=== PATIENT | male | born 1970 | race African-American/Black ===

== ENCOUNTER 2019-03-16 13:19 | Emergency (ER) | payer SELFPAY ==
--- OUTSIDE RECORDS SUMMARY | 2019-03-16 13:23 | XMS REPORT | Continuity of Care Document ---
:1970 Author Organization [employer] Care Team Providers Name Role Phone [employer] Unavailable Unavailable Problems Problem Status Onset Classification Date Comments Source Date Reported End stage renal 10/25/19 10/27/2018 [facility] disease Medical Center SENT BY / Active 10/25/19 [facility] DIALYSIS Medical Center CHRONIC KIDNEY Active 09/07/19 [facility] DISEASE, STAGE 5 Medical [place] Hypertensive 04/06/20 10/15/2018 [facility] emergency [address] [place] [address] RIOS Active 03/21/[address] HYPERKALEMIA Active 03/21/[address] Diabetes mellitus Active Problem 10/27/2018 not taking [facility] (disorder) meds-taken Medical off meds Center b/c of "kidney disease" End stage renal Active Problem 10/27/[address] [facility] [place] [place] Medical (disorder) Center Hypertensive Active Problem 10/27/2018 [facility] disorder, Medical systemic arterial Center (disorder) Osteoarthritis Active Problem 10/27/2018 [facility] (disorder) [facility] Transient Resolved Problem 10/27/2018 [facility] ischemic attack Medical (disorder) Center Acute kidney 10/15/2018 [facility] failure with Medical tubular necrosis Center Acidosis 10/15/2018 [facility] Chronic kidney 10/15/2018 [facility] disease, stage 5 Medical Center Hypertensive 10/15/2018 [facility] chronic kidney Medical disease with Center stage 5 chronic kidney disease or end stage renal disease Type 2 diabetes 10/15/2018 [facility] mellitus with Medical diabetic chronic Center kidney disease Personal history 10/15/2018 [facility] of transient Medical ischemic attack Center (TIA), and cerebral infarction without residual deficits Hyperkalemia 10/15/2018 [facility] Anemia in chronic 10/15/2018 [facility] kidney disease 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 [facility] (current) use of Medical oral hypoglycemic Center drugs Hypomagnesemia 10/15/2018 [facility] Morbid (severe) 10/15/2018 [facility] obesity due to Medical excess calories Center Hypertrophic scar 10/15/2018 [facility] Other disorders 10/15/2018 [facility] Medical metabolism Center Type 2 diabetes 10/15/2018 [facility] mellitus with Medical unspecified Center diabetic retinopathy without macular edema Type 2 diabetes 10/15/2018 [facility] mellitus with Medical diabetic Center nephropathy Hyperlipidemia, 10/15/2018 [facility] HYPERKALEMIA Active [facility] Medications Medication Details Route Status Patient Ordering Order Source Instructions Provider Date gabapentin 300 MG 300 mg, 1 cap, Inactive [facility] Oral Capsule Route: PO, Drug 2019 Medical form: CAP, Center ONCE, Dosing Weight 161.364, kg, Start date: 09/24/18 12:04:00 CDT, Stop date: 09/24/18 12:04:00 CDTNotes: (Same as: Neurontin) Oxycodone 5 mg, Route: Inactive [facility] Hydrochloride 5 MG PO, Drug form: 2019 Medical Oral Tablet TAB, ONCE, Center Dosing Weight 161.364, kg, PRN Pain Score 4-6, Start date: 09/24/18 11:59:00 CDT Naloxone 0.4 mg, 1 mL, No Longer [facility] Route: IVP, Active 2018 Medical Drug form: INJ, Center Q2MIN, Dosing Weight 161.364, kg, PRN Narcotic Reversal, Start date: 09/24/18 9:36:00 CDT, Duration: 8 doses or times, Stop date: 09/25/18 0:00:00 CDTNotes: Same as Narcan Flumazenil 0.2 mg, 2 mL, No Longer 09/24[facility] Route: IVP, Active 2018 Medical Drug form: INJ, Center PRN, Dosing Weight 161.364, kg, PRN Benzodiazepine Reversal, Initial dose, Start date: 09/24/18 9:36:00 CDT, Duration: 30 day, Stop date: 10/24/18 9:35:00 CDTNotes: (Same as: Romazicon) Ondansetron 4 mg, 2 mL, No Longer [facility] Route: IVP, Active 2018 Medical Drug form: INJ, Center ONCE, Dosing Weight 161.364, kg, PRN Nausea & Vomiting, Start date: 09/24/18 9:36:00 CDTNotes: (Same as: Zofran) MEDICATION WASTE Product Size: 4 mg Product Wasted: ___ mg neostigmine (ANES) Route: IV, Drug Inactive [facility] form: INJ, 2018 Medical ONCE, Stop Center date: 09/24/18 9:28:00 CDT ondansetron (ANES) Route: IV, Drug Inactive [facility] form: INJ, 2018 Medical ONCE, Stop Center date: 09/24/18 9:14:00 CDT lidocaine (ANES) Route: IV, Drug Inactive [facility] form: INJ, 2018 Medical ONCE, Stop Center date: 09/24/18 8:44:00 CDT glycopyrrolate Route: IV, Drug Inactive [facility] (ANES) form: INJ, 2018 Medical ONCE, Stop Center date: 09/24/18 8:44:00 CDT propofol (ANES) Route: IV, Drug Inactive [facility] form: INJ, 2018 Medical ONCE, Stop Center date: 09/24/18 8:44:00 CDT fentaNYL (ANES) Route: IV, Drug Inactive [facility] form: INJ, 2018 Medical ONCE, Stop Center date: 09/24/18 8:44:00 CDT ceFAZolin (ANES) Route: IV, Drug Inactive [facility] form: INJ, 2018 Medical ONCE, Stop Center date: 09/24/18 8:44:00 CDT cisatracurium Route: IV, Drug Inactive [facility] (ANES) form: INJ, 2018 Medical ONCE, Stop Center date: 09/24/18 8:44:00 CDT Sodium Chloride 250 mL, Rate: No Longer [facility] 0.9% (titrate) 250 To prime line Active 2018 [facility] mL and flush Center remaining blood products., Dosing Weight 163.1, kg, Route: IV, Total Volume: 250, Start Date: 09/24/18 5:00:00 CDT, Duration: 30 day, Stop date: 10/24/18 4:59:00 CDT, Replace Every: 24 hr Furosemide Daily, 0 Active [facility] Refill(s) 2018 [facility] Docusate 100 mg, 1 cap, Inactive [facility] Route: PO, Drug 2018 Medical form: CAP, Center Daily, Dosing Weight 163.1, kg, Start date: 03/28/18 17:00:00 CDT, Duration: 30 day, Stop date: 04/27/18 9:00:00 CDTNotes: (Same as: Colace) (Do Not Crush) Miralax 17 gm, 1 pkt, Inactive [place] Route: PO, Drug 2018 Medical form: PWDR, Center Daily, Dosing Weight 163.1, kg, Start date: 03/28/18 17:00:00 CDT, Duration: 30 day, Stop date: 04/27/18 9:00:00 CDTNotes: Dissolve in 8 oz of water or juice. (Same as: Miralax) clopidogrel 75 MG 75 mg=1 tab, Active [place] Oral Tablet PO, Daily, # 30 2018 Medical [Plavix] tab, 0 Center Refill(s), Pharmacy: [facility] Aspirin 81 MG 81 mg=1 tab, Inactive [facility] Enteric Coated PO, Daily, # 90 2018 Medical Tablet tab, 3 Center Refill(s), Pharmacy: [facility] NIFEdipine 60 mg 60 mg=1 tab, Active [facility] oral tablet, PO, Q12H, # 60 2018 Medical extended release tab, 0 Center Refill(s), Pharmacy: [facility] isosorbide 20 mg=1 tab, Active [facility] dinitrate 20 mg PO, TID, # 90 2018 Medical oral tablet tab, 0 Center Refill(s), Pharmacy: [facility]79 atorvastatin 10 mg 10 mg=1 tab, Active [facility] oral tablet PO, Bedtime, # 2018 Medical 30 tab, 0 Center Refill(s), Pharmacy: [facility] Hydralazine 50 mg=1 tab, Active [facility] Hydrochloride 50 MG PO, Q8H, # 90 2018 Medical Oral Tablet tab, 0 Center Refill(s), Pharmacy: [facility] carvedilol 12.5 mg 12.5 mg=1 tab, Active [facility] oral tablet PO, Q12H, # 60 2018 Medical tab, 0 Center Refill(s), Pharmacy: [facility]79 calcitriol 0.25 mcg 0.25 microgram, Active [place] oral capsule PO, Daily, # 30 2018 Medical caplet, 0 Center Refill(s), Pharmacy: [facility]79 polyethylene glycol 17 gm, PO, No Longer [place] 3350 oral powder Daily, X 7 day, Active 2018 Medical for reconstitution # 255 gm, 0 Center Refill(s), Pharmacy: [facility] Sodium Bicarbonate 650 mg=1 tab, No Longer [place] 650 MG Oral Tablet PO, TID, X 30 Active 2018 Medical day, # 90 tab, Center 0 Refill(s), Pharmacy: [facility]79 sevelamer carbonate 800 mg=1 tab, Active [place] 800 mg oral tablet PO, TID-Meals, 2018 Medical # 90 tab, 0 Center Refill(s), Pharmacy: [facility]79 Calcitriol 0.25 microgram, Inactive [place] 1 cap, Route: 2018 Medical PO, Drug form: Center CAP, Daily, Dosing Weight 163.1, kg, Priority: NOW, Start date: 03/28/18 14:20:00 CDT, Duration: 30 day, Stop date: 04/27/18 9:00:00 CDTNotes: (Same As: Rocaltrol) carvedilol 12.5 mg, 1 tab, No Longer [place] Route: PO, Drug Active 2017 Medical form: TAB, Center Q12H, Start date: 03/27/18 21:00:00 CDT, Duration: 30 day, Stop date: 04/26/18 9:00:00 CDTNotes: Give with food. (Same As: Coreg) isosorbide 30 mg, Route: Inactive [place] dinitrate PO, Drug form: 2017 Medical TAB, Q8H, Start Center date: 03/27/18 16:00:00 CDT, Duration: 30 day, Stop date: 04/26/18 8:00:00 CDT isosorbide 20 mg, 1 tab, No Longer [facility] dinitrate Route: PO, Drug Active 2017 Medical form: TAB, TID, Center Start date: 03/27/18 13:00:00 CDT, Duration: 30 day, Stop date: 04/26/18 8:00:00 CDTNotes: (Same as:Isordil) Take on empty stomach/ full glass of water Insulin regular 5 unit, 0.05 Inactive [facility] mL, Route: IV, 2018 Medical Drug form: Center SOLN, ONCE, Dosing Weight 163.1, kg, Start date: 03/27/18 7:30:00 CDT, Stop date: 03/27/18 7:30:00 CDTNotes: (Same as: Humulin R) Roll in palms of hands gently; Do not shake vigorously. "single patient use only" (Restricted to patients requiring a dose > 60 units) WASTE: F/P - Black; E - [employer] Trash Bin Stable for 28 days at room temperature Expires in days from D ate D50W (bolus) IV 25 gm, 50 mL, Inactive [facility] Route: IV, Drug 2017 Medical Form: INJ, [place] Dosing Weight 163.1, kg, ONCE, Start date: 03/27/18 7:30:00 CDT, Stop date: 03/27/18 7:30:00 CDT Kayexalate 30 gm, 120 mL, Inactive [facility] Route: PO, Drug 2017 Medical form: SUSP, Center ONCE, Dosing Weight 163.1, kg, Start date: 03/27/18 7:30:00 CDT, Stop date: 03/27/18 7:30:00 CDTNotes: (sodium polystyrene sulfonate 15 gm/60 ml ESTELLE) Shake well before use. (Same as: Kayexalate, SPS) sevelamer 800 mg, 1 tab, No Longer [facility] Route: PO, Drug Active 2018 Medical form: TAB, Center TID-Meals, Dosing Weight 163.1, kg, Start date: 03/26/18 8:00:00 CDT, Duration: 30 day, Stop date: 04/24/18 17:00:00 CDTNotes: Same as: Renvela D50W (bolus) IV 25 gm, 50 mL, Inactive [facility] Route: IV, Drug 2018 Medical Form: INJ, Center Dosing Weight 163.1, kg, ONCE, Start date: 03/26/18 7:53:00 CDT, Stop date: 03/26/18 7:53:00 CDT Insulin regular 5 unit, 0.05 Inactive [facility] mL, Route: IV, 2018 Medical Drug form: [place] SOLN, ONCE, Dosing Weight 163.1, kg, Start date: 03/26/18 7:53:00 CDT, Stop date: 03/26/18 7:53:00 CDTNotes: (Same as: Humulin R) Roll in palms of hands gently; Do not shake vigorously. "single patient use only" (Restricted to patients requiring a dose > 60 units) WASTE: F/P - Black; E - [employer] Trash Bin Stable for 28 days at room temperature Expires in days from D ate Kayexalate 30 gm, 120 mL, Inactive [facility] Route: PO, Drug 2017 Medical form: SUSP, [place] ONCE, Dosing Weight 163.1, kg, Start date: 03/26/18 7:53:00 CDT, Stop date: 03/26/18 7:53:00 CDTNotes: (sodium polystyrene sulfonate 15 gm/60 ml ESTELLE) Shake well before use. (Same as: Kayexalate, SPS) Sodium Bicarbonate 650 mg, 1 tab, No Longer [facility] Route: PO, Drug Active 2017 Medical form: TAB, TID, Center Dosing Weight 163.1, kg, Priority: NOW, Start date: 03/26/18 6:50:00 CDT, Duration: 30 day, Stop date: 04/24/18 17:00:00 CDTNotes: "Dissolve tablet in a glass of water prior to oral administration. STOMACH WARNING: To avoid serious injury, do not take until tablet is completely dissolved. It is very important not to take this product when overly full from food or drink." NIFEdipine 60 mg 60 mg, 1 tab, No Longer [facility] oral tablet, Route: PO, Drug Active 2017 Medical extended release form: ERTAB, [place] Q12H, Dosing Weight 163.1, kg, Start date: 03/25/18 9:00:00 CDT, Duration: 30 day, Stop date: 04/23/18 21:00:00 CDTNotes: (Same as: Adalat CC, Procardia XL) Give on empty stomach. Take 1 hour before or 2 hours after meal; "Avoid grapefruit and grapefruit juice". Do not crush Magnesium Sulfate 2 gm, 50 mL, Inactive [facility] Route: IVPB2017 Medical Drug form: INJ, Center ONCE, Dosing Weight 163.1, kg, Total dose=2 gm, Start date: 03/25/18 7:20:00 CDT, Stop date: 03/25/18 7:20:00 CDTNotes: WASTE: F/P - Sink; E - Municipal Trash Bin NIFEdipine 60 mg 60 mg, 1 tab, Inactive [place] oral tablet, Route: PO, Drug 2018 Medical extended release form: ERTAB, Center Q12H, Dosing Weight 163.1, kg, Start date: 03/24/18 23:00:00 CDT, Duration: 30 day, Stop date: 04/23/18 21:00:00 CDTNotes: (Same as: Adalat CC, Procardia XL) Give on empty stomach. Take 1 hour before or 2 hours after meal; "Avoid grapefruit and grapefruit juice". Do not crush Hydralazine 75 mg, 3 tab, No Longer [place] Hydrochloride 50 MG Route: PO, Drug Active 2018 Medical Oral Tablet form: TAB, Q8H, Center Dosing Weight 163.1, kg, Start date: 03/24/18 21:00:00 CDT, Duration: 30 day, Stop date: 04/23/18 16:00:00 CDTNotes: (Same as: Apresoline) May interfere w/enteral feedings Take With Food. Hydralazine 50 mg, 1 tab, Inactive [place] Hydrochloride 50 MG Route: PO, Drug 2018 Medical Oral Tablet form: TAB, Q8H, Center Dosing Weight 163.1, kg, Start date: 03/24/18 16:00:00 CDT, Duration: 30 day, Stop date: 04/23/18 8:00:00 CDTNotes: (Same as: Apresoline) May interfere w/enteral feedings Take With Food isosorbide 20 mg, 1 tab, No Longer [place] dinitrate Route: PO, Drug Active 2017 Medical form: TAB, Q8H, Center Start date: 03/24/18 16:00:00 CDT, Duration: 30 day, Stop date: 04/23/18 8:00:00 CDTNotes: (Same as:Isordil) Take on empty stomach/ full glass of water NIFEdipine 60 mg 60 mg, 1 tab, Inactive [facility] oral tablet, Route: PO, Drug 2017 Medical extended release form: ERTAB, Center ONCE, Dosing Weight 163.1, kg, Start date: 03/24/18 15:59:00 CDT, Stop date: 03/24/18 15:59:00 CDTNotes: (Same as: Adalat CC, Procardia XL) Give on empty stomach. Take 1 hour before or 2 hours after meal; "Avoid grapefruit and grapefruit juice". Do not crush NIFEdipine 60 mg 60 mg, Route: Inactive [facility] oral tablet, PO, Drug form: 2017 Medical extended release ERTAB, ONCE, Center Dosing Weight 163.1, kg, Priority: NOW, Start date: 03/24/18 15:57:00 CDT, Stop date: 03/24/18 15:57:00 CDT, .. hydrALAZINE 25 mg, Route: Inactive [facility] PO, Drug form: 2018 Medical TAB, TID, Start Center date: 03/24/18 13:00:00 CDT, Duration: 30 day, Stop date: 04/23/18 9:00:00 CDT Kayexalate 30 gm, Route: Inactive [facility] PO, Drug form: 2018 Medical PWDR, ONCE, Center Dosing Weight 163.1, kg, Start date: 03/24/18 12:54:00 CDT, Stop date: 03/24/18 12:54:00 CDTNotes: (sodium polystyrene sulfonate 30gm powder) (Same as: Kayexalate, SPS) Shake well before use Acetaminophen 650 mg, 2 tab, No Longer [facility] Route: PO, Drug Active 2017 Medical form: TAB, Q6H, Center Dosing Weight 163.1, kg, PRN Pain Score 1-3, Start date: 03/24/18 12:22:00 CDT, Duration: 30 day, Stop date: 04/23/18 12:21:00 CDTNotes: Do not exceed 4 gm/day. (Same as: Tylenol) Hydralazine 25 mg, 1 tab, Inactive [place] Route: PO, Drug 2017 Medical form: TAB, Center ONCE, Dosing Weight 163.1, kg, Start date: 03/24/18 11:06:00 CDT, Stop date: 03/24/18 11:06:00 CDTNotes: (Same as: Apresoline) May interfere w/enteral feedings Take With Food. Tylenol 650 mg, 2 tab, Inactive [place] Route: PO, Drug 2017 Medical form: TAB, Center ONCE, Dosing Weight 163.1, kg, Start date: 03/23/18 20:41:00 CDT, Stop date: 03/23/18 20:41:00 CDTNotes: Do not exceed 4 gm/day. (Same as: Tylenol) Melatonin 3 MG 6 mg, 2 tab, No Longer [facility] Extended Release Route: PO, Drug Active 2017 Medical Tablet Form: TAB, Center Dosing Weight 163.1, kg, Bedtime, Start date: 03/23/18 18:00:00 CDT, Duration: 30 day, Stop date: 04/21/18 18:00:00 CDTNotes: (Same as: Melatonin) hydrALAZINE 10 mg, 1 tab, No Longer [facility] Route: PO, Drug Active 2017 Medical form: TAB, TID, Center Start date: 03/23/18 16:00:00 CDT, Duration: 30 day, Stop date: 04/22/18 13:00:00 CDTNotes: (Same as: Apresoline) May interfere w/enteral feedings. Take With Food isosorbide 20 mg, 1 tab, No Longer [facility] dinitrate Route: PO, Drug Active 2017 Medical form: TAB, TID, Center Start date: 03/23/18 9:00:00 CDT, Duration: 30 day, Stop date: 04/21/18 17:00:00 CDTNotes: (Same as:Isordil) Take on empty stomach/ full glass of water hydrALAZINE 12.5 mg, 0.5 Inactive [facility] tab, Route: PO, 2017 Medical Drug form: TAB, Center TID, Start date: 03/23/18 9:00:00 CDT, Duration: 30 day, Stop date: 04/21/18 17:00:00 CDT Hydralazine 1 tab, Route: No Longer [facility] Hydrochloride 37.5 PO, Dosing Active 2018 Medical MG / Isosorbide Weight 163.1, Center Dinitrate 20 MG kg, TID, Start Oral Tablet [Bidil] date: 03/23/18 9:00:00 CDT, Duration: 30 day, Stop date: 04/21/18 17:00:00 CDT heparin 5,000 unit, 1 No Longer [facility] mL, Route: Active 2017 Medical SUB-Q, Drug Center form: INJ, Q8H, Dosing Weight 163.1, kg, Start date: 03/23/18 8:00:00 CDT, Duration: 30 day, Stop date: 04/22/18 0:00:00 CDTNotes: porcine heparin Labetalol 10 mg, 2 mL, No Longer [facility] Route: IV, Drug Active 2017 Medical form: INJ, Center [id number], Dosing Weight 163.1, kg, PRN Hypertension, Start date: 03/22/18 23:53:00 CDT, Duration: 30 day, Stop date: 04/21/18 23:52:00 CDT Labetalol 10 mg, 2 mL, Inactive [facility] Route: IVP, 2017 Medical Drug form: INJ, Center ONCE, Dosing Weight 163.1, kg, Priority: NOW, Start date: 03/22/18 20:13:00 CDT, Stop date: 03/22/18 20:13:00 CDT Labetalol 20 mg, 4 mL, Inactive [facility] Route: IVP, 2017 Medical Drug form: INJ, Center ONCE, Dosing Weight 163.1, kg, Priority: NOW, Start date: 03/22/18 20:06:00 CDT, Stop date: 03/22/18 20:06:00 CDT Hydralazine 10 mg, Route: Inactive [facility] IV, ONCE, 2018 Medical Dosing Weight Center 163.1, kg, Start date: 03/22/18 20:04:00 CDT, Stop date: 03/22/18 20:04:00 CDT NIFEdipine 60 mg 60 mg, 1 tab, No Longer [place] oral tablet, Route: PO, Drug Active 2018 Medical extended release form: ERTAB, Center Daily, Dosing Weight 163.1, kg, Start date: 03/22/18 16:50:00 CDT, Duration: 30 day, Stop date: 04/21/18 9:00:00 CDT, .. Saline Flush 0.9% 10 ml, Route: No Longer [facility] IVP, Drug Form: Active 2018 Medical INJ, Dosing Center Weight 163.1, kg, Q12H, Start date: 03/22/18 9:00:00 CDT, Duration: 30 day, Stop date: 04/20/18 21:00:00 CDTNotes: (Same as: BD Posiflush) heparin 5,000 unit, 1 Inactive [facility] mL, Route: 2018 Medical SUB-Q, Drug Center form: INJ, Q8H, Dosing Weight 163.1, kg, Start date: 03/22/18 8:00:00 CDT, Duration: 30 day, Stop date: 04/21/18 0:00:00 CDTNotes: porcine heparin Dextrose 50% 25 gm, 50 mL, No Longer [facility] Syringe Route: IVP, Active 2018 Medical Drug Form: INJ, Center Dosing Weight 163.1, kg, PRN, PRN Blood Glucose Results, Start date: 03/22/18 6:16:00 CDT, Duration: 30 day, Stop date: 04/21/18 6:15:00 CDT Glucagon 1 mg, Route: No Longer [facility] IM, Drug form: Active 2018 Medical PDR/INJ, PRN, Center Dosing Weight 163.1, kg, PRN Blood Glucose Results, Start date: 03/22/18 6:16:00 CDT, Duration: 30 day, Stop date: 04/21/18 6:15:00 CDT Insulin Lispro 3 unit, 0.03 No Longer [facility] mL, Route: Active 2018 Medical SUB-Q, Drug Center form: SOLN, TID-Before Meals, Dosing Weight 163.1, kg, PRN Blood Glucose Results, Start date: 03/22/18 6:16:00 CDT, Duration: 30 day, Stop date: 04/21/18 6:15:00 CDTNotes: (Same as: Humalog ) Roll in palms of hands gently; Do not shake `vigorously. "Single Patient Use Only " WASTE: F/P - Black; E - [employer] Trash Bin Stable for 28 days at room temperature. Expires in days from D ate Amlodipine 10 MG / 1 tab, PO, No Longer [place] atorvastatin 10 MG Bedtime, # 30 Active 2018 Medical Oral Tablet tab, 0 Center Refill(s) spironolactone 50 50 mg=1 tab, No Longer [place] mg oral tablet PO, Daily, # 30 Active 2018 Medical tab, 1 Center Refill(s) Hydrochlorothiazide 1 tab, PO, No Longer [place] 25 MG / valsartan Daily, # 30 Active 2018 Medical 320 MG Oral Tablet tab, 0 Center Refill(s) glimepiride 2 mg 2 mg=1 tab, PO, No Longer [facility] oral tablet Breakfast, # 30 Active 2018 Medical tab, 0 Center Refill(s) Metformin 1,000 mg=1 tab, No Longer [place] hydrochloride 1000 PO, BID, 0 Active 2018 Medical MG Oral Tablet Refill(s) Center Saline Flush 0.9% 10 ml, Route: No Longer [place] IVP, Drug Form: Active 2018 Medical INJ, Dosing Center Weight 163.1, kg, PRN, PRN Line Flush, Start date: 03/22/18 5:02:00 CDT, Duration: 30 day, Stop date: 04/21/18 5:01:00 CDTNotes: (Same as: BD Posiflush) Nicardipine 20 mg, 200 mL, Inactive [place] Rate: Titrate, 2018 Medical Start Dose: 5 Center mg/hr, Titration: 2.5 mg/hr every 15 minutes, Goal(s): goal SBP 180/92., Max Dose: 15 mg/hr, Route: IV, Dosing Weight 165.909 kg, Total Volume: 200, Priority: NOW, Start date: 03/22/18 4:07:00 CDT, Duration:...Not es: Same as: Cardene Concentration: (0.1 mg/ 1 ml) Labetalol 10 mg, Route: Inactive [facility] IV, ONCE, 2018 Medical Dosing Weight Center 165.909, kg, Start date: 03/21/18 22:55:00 CDT, Stop date: 03/21/18 22:55:00 CDT Labetalol 10 mg, Route: Inactive [facility] IV, ONCE, 2018 Medical Dosing Weight Center 165.909, kg, Start date: 03/21/18 22:54:00 CDT, Stop date: 03/21/18 22:54:00 CDT Kayexalate 15 gm, 60 mL, Inactive [place] Route: PO, Drug 2018 Medical form: SUSP, Center ONCE, Dosing Weight 165.909, kg, Priority: STAT, Start date: 03/21/18 21:55:00 CDT, Stop date: 03/21/18 21:55:00 CDTNotes: (sodium polystyrene sulfonate 15 gm/60 ml ESTELLE) Shake well before use. (Same as: Kayexalate, SPS) Lasix 40 mg, 4 mL, Inactive [place] Route: IVP, 2018 Medical Drug form: INJ, Center ONCE, Dosing Weight 165.909, kg, Priority: STAT, Start date: 03/21/18 21:54:00 CDT, Stop date: 03/21/18 21:54:00 CDTNotes: (Same as: Lasix) MEDICATION WASTE Product Size: 40 mg Product Wasted: ___ mg Isolyte S PH-7.4 1,000 mL, 1000 Inactive [place] (Bolus) IV ml/hr, Infuse 2018 Medical Over: 1 hr, Center Route: IV, 1,000, Drug form: SOLN, ONCE, Dosing Weight 165.909 kg, Start date: 03/21/18 21:32:00 CDT, Stop date: 03/21/18 21:32:00 CDTNotes: (Same as: Isolyte S PH 7.4) Albuterol 0.83 7.47 mg, 9 mL, Inactive [facility] MG/ML Inhalant Route: NEB, 2018 Medical Solution Drug form: [place] SHANNONN, ONCE, Dosing Weight 165.909, kg, Start date: 03/21/18 21:32:00 CDT, Stop date: 03/21/18 21:32:00 CDTNotes: SEE RT DOCUMENTATION (Same as: Proventil) Dextrose 50% 50 gm, 100 mL, Inactive [facility] Syringe Route: IV, Drug 2017 Medical Form: INJ, [place] Dosing Weight 165.909, kg, ONCE, Start date: 03/21/18 21:31:00 CDT, Stop date: 03/21/18 21:31:00 CDT Insulin regular 5 unit, 0.05 Inactive [facility] mL, Route: IVP, 2017 Medical Drug form: [facility], ONCE, Dosing Weight 165.909, kg, Priority: STAT, Start date: 03/21/18 21:31:00 CDT, Stop date: 03/21/18 21:31:00 CDTNotes: (Same as: Humulin R) Roll in palms of hands gently; Do not shake vigorously. "single patient use only" (Restricted to patients requiring a dose > 60 units) WASTE: F/P - Black; E - Municipal Trash Bin Stable for 28 days at room temperature Expires in days from D ate Allergies, Adverse Reactions, Alerts Substance Category Reaction Severity Reaction Status Date Comments Source type Reported morphine Assertion Drug Active [facility] [facility] 6 [facility] Immunizations No Data Provided for This Section Results Order Name Results Value Reference Date Interpretation Comments Source Range IMMUNOLOGY CDC HIV 4th Negative Negative 10/24 [facility] GEN *NA* /2018 [facility] (10/24/18 8:13 AM) [place] BLOOD BANK ABO/Rh O POS 10/24 [facility] RESULTS /2018 [facility] BLOOD BANK Antibody Scrn Negative 10/24 [facility] RESULTS (10/24/18 8:07 AM) /2018 [facility] ELECTROLYTE AGAP 14.8 10.0 - 10/24 [facility] S 20.0 /2018 [facility] ELECTROLYTE eGFR 7 05/01 Result [facility] Comment: The Medical eGFR is Center calculated using the CKD-EPI formula. In most young, healthy individuals the eGFR will be >90 mL/min/1.73m2 . The eGFR declines with age. An eGFR of 60-89 may be normal in some populations, particularly the elderly, for whom the CKD-EPI formula has not been extensively validated. Use of the eGFR is not recommended in the following populations:< br/>
Jewell viduals with unstable creatinine concentration s, including patients and those with serious co-morbid conditions.<b r/>
Patie nts with extremes in muscle mass or diet.

The data above are obtained from the National Kidney Disease Education Program (NKDEP) which additionally recommends that when the eGFR is used in patients with extremes of body mass index for purposes of drug dosing, the eGFR should be multiplied by the estimated BMI. ELECTROLYTE Calcium Lvl 8.2 8.5 - 10.5 10/24 [facility]2018 [facility] ELECTROLYTE Sodium Lvl 140 135 - 145 05 [facility]2018 [facility] ELECTROLYTE BUN 74 7 - 22 10/[address] ELECTROLYTE Creatinine 9.58 0.50 - 10/24 [facility] Lvl 1.40 [facility] ELECTROLYTE Potassium Lvl 4.8 3.5 - 5.1 10/[address] ELECTROLYTE CO2 21 24 - 32 10/[address] ELECTROLYTE Chloride Lvl 109 95 - 109 10/24 [facility]2018 [facility] ELECTROLYTE Glucose Lvl 105 70 - 99 10/24 [facility]2018 [facility] HEMATOLOGY INR 1.05 0.85 - 10/24 [facility] 1.17 [facility] HEMATOLOGY PT 13.5 12.0 - 10/24 [facility] 14.7 [facility] HEMATOLOGY PTT 30.3 22.9 - 10/24 [facility] 35.8 [facility] HEMATOLOGY MPV 8.5 7.4 - 10.4 10/24 [facility]2018 [facility] HEMATOLOGY WBC 4.2 3.7 - 10.4 10/24 [facility] HEMATOLOGY RDW 14.6 11.5 - 10/24 [facility] 14.5 [facility] HEMATOLOGY Platelet 145 133 - 450 05 [facility] HEMATOLOGY MCHC 34.0 32.0 - 05/ [place] 36.0 /2018 [facility] HEMATOLOGY MCV 85.3 80.0 - 05 [place] 94.0 [facility] HEMATOLOGY MCH 29.0 27.0 - 05 [place] 31.0 [facility] HEMATOLOGY Hct 20.9 42.0 - 10/24 [place] 54.0 [facility] HEMATOLOGY Hgb 7.1 14.0 - 10/24 [place] 18.0 [facility] HEMATOLOGY RBC 2.45 4.70 - 10/24 [place] 6.10 /2018 [facility] HEMATOLOGY Eosinophils # 0.1 0.0 - 0.5 05 [facility] HEMATOLOGY Lymphocytes 14.3 20.0 - 10/24 [place] 40.0 [facility] HEMATOLOGY Segs 71.6 45.0 - 10/24 [place] 75.0 [facility] HEMATOLOGY Neutrophils # 3.0 1.5 - 8.1 10/24 [facility] HEMATOLOGY Monocytes # 0.4 0.0 - 0.8 10/24 [facility] HEMATOLOGY Lymphocytes # 0.6 1.0 - 5.5 10/24 [facility] HEMATOLOGY Basophils 0.6 0.0 - 1.0 10/24 [facility] HEMATOLOGY Eosinophils 2.7 0.0 - 4.0 10/24 [facility] HEMATOLOGY Monocytes 10.8 2.0 - 12.0 10/24 [facility] BACTERIAL - MRSA by PCR Negative 09/24 [facility] SEROLOGY (09/24/18 6:32 AM) [facility] ELECTROLYTE Potassium WB 4.4 3.5 - 5.1 09/24 [facility] S [facility] BLOOD BANK Antibody Scrn Negative 09/24 [facility] RESULTS (09/24/18 6:05 AM) [facility] BLOOD BANK ABO/Rh O POS 09/24 [facility] RESULTS [facility] CHEM PANEL eGFR 6 09/24 Result Comment: The Medical eGFR is Center calculated using the CKD-EPI formula. In most young, healthy individuals the eGFR will be >90 mL/min/1.73m2 . The eGFR declines with age. An eGFR of 60-89 may be normal in some populations, particularly the elderly, for whom the CKD-EPI formula has not been extensively validated. Use of the eGFR is not recommended in the following populations:< br/>
Jewell viduals with unstable creatinine concentration s, including patients and those with serious co-morbid conditions.<b r/>
Patie nts with extremes in muscle mass or diet.

The data above are obtained from the National Kidney Disease Education Program (NKDEP) which additionally recommends that when the eGFR is used in patients with extremes of body mass index for purposes of drug dosing, the eGFR should be multiplied by the estimated BMI. CHEM PANEL Bili Total 0.2 0.2 - 1.[address] CHEM PANEL AST 8 0 - 37 09/[address] CHEM PANEL Alk Phos 64 39 - 136 09/[address] CHEM PANEL ALT 15 0 - [address] CHEM PANEL Potassium Lvl 4.5 3.5 - 5.1 09/[address] CHEM PANEL Total Protein 7.3 6.4 - 8.4 09/[address] CHEM PANEL CO2 20 24 - 32 09/[address] CHEM PANEL Albumin Lvl 3.3 3.5 - 5.0 09/[address] CHEM PANEL Calcium Lvl 8.4 8.5 - 10.5 09/[address] CHEM PANEL Chloride Lvl 111 95 - 109 09/[address] CHEM PANEL Creatinine 10.30 0.50 - 04 [facility] Lvl 1.40 /2018 [facility] CHEM PANEL Glucose Lvl 103 70 - 99 09/[address] CHEM PANEL Sodium Lvl 140 135 - 145 09/[address] CHEM PANEL BUN 76 7 - 22 09/[address] CHEM PANEL A/G Ratio 0.8 0.7 - 1.6 09/[address] CHEM PANEL B/C Ratio 7 6 - 25 09/[address] CHEM PANEL Globulin 4.0 2.7 - 4.2 09/[address] CHEM PANEL AGAP 13.5 10.0 - 04 [place] 20.0 /2018 [facility] HEMATOLOGY Basophils 1.0 0.0 - 1.0 04 2019 [facility] HEMATOLOGY Basophils # 0.1 0.0 - 0.2 04 [place] 2019 [facility] HEMATOLOGY Eosinophils # 0.2 0.0 - 0.5 09/24 [facility] HEMATOLOGY Monocytes # 0.9 0.0 - 0.8 09/24 [facility] HEMATOLOGY Lymphocytes # 2.2 1.0 - 5.5 09/24 [facility] HEMATOLOGY Neutrophils # 2.0 1.5 - 8.1 09/24 2019 [facility] HEMATOLOGY Eosinophils 3.2 0.0 - 4.0 04 [facility] HEMATOLOGY Monocytes 16.1 2.0 - 12.0 09/24 [facility] HEMATOLOGY Lymphocytes 42.0 20.0 - 09/24 [place] 40.0 /2019 [facility] HEMATOLOGY Segs 38.7 45.0 - 09/24 [place] 75.0 /2019 [facility] HEMATOLOGY PT 14.5 12.0 - 09/24 [place] 14.7 /2019 [facility] HEMATOLOGY INR 1.15 0.85 - 09/24 [place] 1.17 /2019 [facility] HEMATOLOGY PTT 31.4 22.9 - 09/24 [place] 35.8 /2019 [facility] HEMATOLOGY Hgb 7.5 14.0 - 09/24 [place] 18.0 /2019 [facility] HEMATOLOGY Hct 21.9 42.0 - 09/24 [place] 54.0 /2019 [facility] HEMATOLOGY MCH 28.5 27.0 - 09/24 [place] 31.0 /2019 [facility] HEMATOLOGY MCHC 34.4 32.0 - 09/24 [place] 36.0 /2019 [facility] HEMATOLOGY RDW 14.2 11.5 - 09/24 [place] 14.5 /2019 [facility] HEMATOLOGY Platelet 180 133 - 450 04 [place] [facility] HEMATOLOGY WBC 5.3 3.7 - 10.4 09/24 [facility] HEMATOLOGY MCV 82.8 80.0 - 09/24 [place] 94.0 /2019 [facility] HEMATOLOGY RBC 2.65 4.70 - 09/24 [place] 6.10 /2019 [facility] HEMATOLOGY MPV 8.7 7.4 - 10.4 09/24 [facility] SPECIAL Hgb A1C <3.5 % <=5.6 % 09/24 [facility] CHEM PANEL Phosphorus 5.7 2.5 - 4.5 03/28 [facility] ELECTROLYTE Sodium Lvl 141 135 - 145 03/28 [facility] ELECTROLYTE Potassium Lvl 4.9 3.5 - 5.1 03/28 [facility]2017 [facility] ELECTROLYTE Chloride Lvl 106 95 - 109 03/28 [facility] ELECTROLYTE Glucose Lvl 142 70 - 99 03/28 [facility] ELECTROLYTE BUN 67 7 - 22 03/28 [facility]2017 [facility] ELECTROLYTE Creatinine 8.79 0.50 - 03/28 [facility] Lvl 1.40 [facility] ELECTROLYTE AGAP 13.9 10.0 - 03/28 [facility] 20.0 [facility] ELECTROLYTE Calcium Lvl 8.1 8.5 - 10.5 03/28 [facility]2017 [facility] ELECTROLYTE CO2 26 24 - 32 03/28 [facility] ELECTROLYTE eGFR 8 03/28 Result [facility] Comment: [facility] eGFR is Center calculated using the CKD-EPI formula. In most young, healthy individuals the eGFR will be >90 mL/min/1.73m2 . The eGFR declines with age. An eGFR of 60-89 may be normal in some populations, particularly the elderly, for whom the CKD-EPI formula has not been extensively validated. Use of the eGFR is not recommended in the following populations:< br/>
Jewell viduals with unstable creatinine concentration s, including patients and those with serious co-morbid conditions.<b r/>
Patie nts with extremes in muscle mass or diet.

The data above are obtained from the National Kidney Disease Education Program (NKDEP) which additionally recommends that when the eGFR is used in patients with extremes of body mass index for purposes of drug dosing, the eGFR should be multiplied by the estimated BMI. IMMUNOLOGY Hep C Ab Negative 03/28 [facility] *NA* /2017 [facility] (03/28/18 12:26 AM) Center PARATHYROID PTH Intact 374.3 18.4 - 03/28 [facility] PROFILE 80.1 [facility] PARATHYROID PTH Intact 314.7 18.4 - 03/27 [facility] PROFILE 80.1 [facility] CHEM PANEL eGFR 7 03/27 Result [facility] Comment: The Medical eGFR is Center calculated using the CKD-EPI formula. In most young, healthy individuals the eGFR will be >90 mL/min/1.73m2 . The eGFR declines with age. An eGFR of 60-89 may be normal in some populations, particularly the elderly, for whom the CKD-EPI formula has not been extensively validated. Use of the eGFR is not recommended in the following populations:< br/>
Jewell viduals with unstable creatinine concentration s, including patients and those with serious co-morbid conditions.<b r/>
Patie nts with extremes in muscle mass or diet.

The data above are obtained from the National Kidney Disease Education Program (NKDEP) which additionally recommends that when the eGFR is used in patients with extremes of body mass index for purposes of drug dosing, the eGFR should be multiplied by the estimated BMI. CHEM PANEL AGAP 15.4 10.0 - 03/27 [facility] 20.0 [facility] CHEM PANEL Potassium Lvl 4.4 3.5 - 5.1 03/27 [facility] [address] [place] [address] CHEM PANEL Chloride Lvl 107 95 - 109 03/[address] CHEM PANEL CO2 21 24 - 32 03/[address] CHEM PANEL Calcium Lvl 8.6 8.5 - 10.5 03/[address] CHEM PANEL Glucose Lvl 103 70 - 99 03/[address] CHEM PANEL Creatinine 8.87 0.50 - 03/27 [facility] Lvl 1.40 [facility] CHEM PANEL Sodium Lvl 139 135 - 145 03/27 [facility] [address] [place] [address] CHEM PANEL BUN 64 7 - 22 03/27 [facility] [address] [place] [address] IMMUNOLOGY 24UIFE Int Urine 03/27 [facility] immunofixa /2017 [facility] tion Center electropho resis reveals a polyclonal pattern of immunoglob ulins. No monoclonal proteins are identified . Interpreta tion performed at [facility]. IMMUNOLOGY 24UIFE See 03/27 [facility] Pattern interpreta [facility] tion. [place] URINE CHEM Ur Protein 222.1 <=11.8 03/27 [facility] mg/dL /2017 [facility] URINE CHEM TV Protein 3000 800 - 1800 03/27 [facility] (ml) [facility] URINE CHEM U Prot 24Hrs 24 03/27 [facility] Col (10/2/18 12:20 PM) /2017 [facility] URINE CHEM U24 Protein 6663 <=148 03/27 [facility] mg/24hrs /2017 [facility] CARDIAC Total CK 280 12 - 191 03/27 [facility] ENZYMES [facility] CHEM PANEL Phosphorus 5.0 2.5 - 4.5 03/[address] ELECTROLYTE AGAP 14.4 10.0 - 03/27 [facility] S 20.0 [facility] ELECTROLYTE eGFR 7 03/27 [facility] Comment: [facility] eGFR is Center calculated using the CKD-EPI formula. In most young, healthy individuals the eGFR will be >90 mL/min/1.73m2 . The eGFR declines with age. An eGFR of 60-89 may be normal in some populations, particularly the elderly, for whom the CKD-EPI formula has not been extensively validated. Use of the eGFR is not recommended in the following populations:< br/>
Jewell viduals with unstable creatinine concentration s, including patients and those with serious co-morbid conditions.<b r/>
Patie nts with extremes in muscle mass or diet.

The data above are obtained from the National Kidney Disease Education Program (NKDEP) which additionally recommends that when the eGFR is used in patients with extremes of body mass index for purposes of drug dosing, the eGFR should be multiplied by the estimated BMI. ELECTROLYTE Glucose Lvl 122 70 - 99 03/27 [facility] [address] [place] [address] ELECTROLYTE Potassium Lvl 5.4 3.5 - 5.1 03/27 [facility] ELECTROLYTE BUN 71 7 - 22 03/27 [facility]2017 [facility] ELECTROLYTE Creatinine 8.81 0.50 - 03/27 [facility] S Lvl 1.40 [facility] ELECTROLYTE Sodium Lvl 137 135 - 145 03/[address] ELECTROLYTE CO2 20 24 - 32 03/[address] ELECTROLYTE Chloride Lvl 108 95 - 109 03/[address] ELECTROLYTE Calcium Lvl 8.4 8.5 - 10.5 03/[address] HEMATOLOGY Lymphocytes 14.7 20.0 - 03/27 [place] 40.0 [facility] HEMATOLOGY Segs 72.0 45.0 - 03/27 [place] 75.0 [facility] HEMATOLOGY Basophils 1.0 0.0 - 1.0 03/27 [facility] HEMATOLOGY Monocytes 9.7 2.0 - 12.0 03/27 [facility] HEMATOLOGY Eosinophils 2.6 0.0 - 4.0 03/27 [facility] HEMATOLOGY Lymphocytes # 0.9 1.0 - 5.5 03/[address] [place] [address] HEMATOLOGY Monocytes # 0.6 0.0 - 0.8 03/27 [facility] HEMATOLOGY Neutrophils # 4.2 1.5 - 8.1 03/[address] [place] [address] HEMATOLOGY Basophils # 0.1 0.0 - 0.2 03/27 [facility] [address] [place] [address] HEMATOLOGY Eosinophils # 0.2 0.0 - 0.5 03/27 [facility] HEMATOLOGY MPV 9.0 7.4 - 10.4 03/27 [facility] [address] [place] [address] HEMATOLOGY Platelet 184 133 - 450 03/27 [facility] [address] [place] [address] HEMATOLOGY RDW 13.4 11.5 - 03/27 [place] 14.5 [facility] HEMATOLOGY WBC 5.8 3.7 - 10.4 03/[address] [place] [address] HEMATOLOGY RBC 2.69 4.70 - 03/27 [place] 6.10 [facility] HEMATOLOGY MCH 29.8 27.0 - 03/27 [place] 31.0 [facility] HEMATOLOGY MCV 86.4 80.0 - 03/27 [place] 94.0 [facility] HEMATOLOGY Hct 23.2 42.0 - 03/27 [place] 54.0 [facility] HEMATOLOGY Hgb 8.0 14.0 - 03/27 [place] 18.0 [facility] HEMATOLOGY MCHC 34.5 32.0 - 03/27 [place] 36.0 [facility] IMMUNOLOGY HIV Ag/Ab 4th Negative Negative 03/27 [facility] Gen *NA* [facility] (03/27/18 1:17 AM) Center IMMUNOLOGY RPR Non-Reactive Non 03/27 [facility] (03/27/18 1:17 AM) /2017 [facility] IMMUNOLOGY Hep C Ab Negative 03/27 [place] *NA* [facility] (03/27/18 1:17 AM) Center IMMUNOLOGY Hep B Core Negative Negative 03/27 [facility] IgM *NA* [facility] (03/27/18 1:17 AM) Center IMMUNOLOGY Hep C Ab Negative 03/27 [facility] *NA* [facility] (03/27/18 1:17 AM) Center IMMUNOLOGY Hep Bs Ag Negative Negative [facility] (03/27/18 1:17 AM) Center IMMUNOLOGY Hep A IgM Negative Negative 03/27 [facility] (03/27/18 1:17 AM) [place] CARDIAC Total CK 295 12 - 191 03/26 [facility] CHEM PANEL Phosphorus 5.6 2.5 - 4.5 03/[address] CHEM PANEL Magnesium Lvl 1.9 1.8 - 2.4 03/[address] HEMATOLOGY Monocytes # 0.5 0.0 - 0.8 03/26 [facility]2017 [facility] HEMATOLOGY Basophils 0.7 0.0 - 1.0 03/[address] HEMATOLOGY Eosinophils 2.3 0.0 - 4.0 03/[address] HEMATOLOGY Lymphocytes # 0.9 1.0 - 5.5 03/[address] HEMATOLOGY Neutrophils # 3.7 1.5 - 8.1 03/[address] HEMATOLOGY Segs 69.2 45.0 - 03/26 [place] 75.0 [facility] HEMATOLOGY Monocytes 10.1 2.0 - 12.0 03/[address] HEMATOLOGY Lymphocytes 17.7 20.0 - 03/26 [place] 40.0 [facility] HEMATOLOGY Eosinophils # 0.1 0.0 - 0.5 03/[address] HEMATOLOGY MPV 8.9 7.4 - 10.4 03/[address] HEMATOLOGY Platelet 174 133 - 450 03/[address] HEMATOLOGY MCH 29.8 27.0 - 03/26 [place] 31.0 [facility] HEMATOLOGY MCV 85.5 80.0 - 03/26 [place] 94.0 [facility] HEMATOLOGY RDW 13.0 11.5 - 03/26 [place] 14.5 [facility] HEMATOLOGY MCHC 34.9 32.0 - 03/26 [place] 36.0 [facility] HEMATOLOGY Hct 22.9 42.0 - 03/26 [place] 54.0 2018 [facility] HEMATOLOGY Hgb 8.0 14.0 - 10 [place] 18.0 /2017 [facility] HEMATOLOGY RBC 2.68 4.70 - 10 [place] 6.10 [facility] HEMATOLOGY WBC 5.3 3.7 - 10.[address] CHEM PANEL Magnesium Lvl 1.6 1.8 - 2.4 03/[address] HEMATOLOGY Neutrophils # 3.9 1.5 - 8.1 03/25 [facility] HEMATOLOGY Eosinophils # 0.2 0.0 - 0.5 03/25 [facility] HEMATOLOGY Monocytes # 0.6 0.0 - 0.8 03/25 [facility] HEMATOLOGY Lymphocytes # 0.9 1.0 - 5.5 03/25 2017 [facility] HEMATOLOGY Basophils 0.7 0.0 - 1.0 03/25 2017 [facility] HEMATOLOGY Segs 69.1 45.0 - 03/25 [place] 75.0 /2017 [facility] HEMATOLOGY Monocytes 10.6 2.0 - 12.0 03/25 [facility] HEMATOLOGY Eosinophils 2.7 0.0 - 4.0 03/25 [facility] HEMATOLOGY Lymphocytes 16.9 20.0 - 03/25 [place] 40.0 [facility] HEMATOLOGY WBC 5.6 3.7 - 10.4 03/25 [facility] HEMATOLOGY Hgb 8.1 14.0 - 03/25 [place] 18.0 [facility] HEMATOLOGY RBC 2.68 4.70 - 03/25 [place] 6.10 [facility] HEMATOLOGY MCV 85.7 80.0 - 03/25 [place] 94.0 /2017 [facility] HEMATOLOGY MCH 30.1 27.0 - 03/25 [place] 31.0 [facility] HEMATOLOGY MCHC 35.2 32.0 - 03/25 [place] 36.0 2018 [facility] HEMATOLOGY Hct 23.0 42.0 - 03/25 [place] 54.0 [facility] HEMATOLOGY RDW 13.3 11.5 - 03/25 [place] 14.5 [facility] HEMATOLOGY Platelet 182 133 - 450 03/25 [facility] HEMATOLOGY MPV 9.0 7.4 - 10.4 03/25 [facility] PARATHYROID Ca Norm WB 1.07 1.05 - 03/25 [facility] [place] PROFILE 1.25 /2018 [facility] PARATHYROID Ca Ion WB 1.14 1.05 - 03/25 [facility] [place] [facility] 07.20 [facility] CHEM PANEL Magnesium Lvl 1.7 1.8 - 2.4 03/[address] PARATHYROID Ca Norm WB 1.06 1.05 - 03/24 [facility] PROFILE 07.20 [facility] PARATHYROID Ca Ion WB 1.09 1.05 - 03/24 [facility] [place] [facility] 07.20 [facility] ENDOCRINOLO Leon Saliva 0.118 03/23 Result [facility] Comment: [facility] Reference Center Range:
Ch ildren and Adults:
8 :00a.m.: 0.025 - 0.600
Noon: <0.010 - 0.330
4:0 0p.m.: 0.010 - 0.200
Mid night: <0.010 - 0.090
Per formed At: [facility]
[address] [place], [place] [id number]<br/ >Norma Aviles MD Ph:[phone] PARATHYROID Ca Ion WB 1.09 1.05 - 03/23 [facility] [place] [facility] 07.20 [facility] PARATHYROID Ca Norm WB 1.04 1. - 03/23 [facility] [place] [facility] 07.20 [facility] BACTERIAL - MRSA by PCR Negative 03/22 [facility] SEROLOGY (03/22/18 5:41 AM) [address] CHEM PANEL B/C Ratio 7 6 - 25 03/[address] CHEM PANEL Globulin 3.8 2.7 - 4.2 03/[address] CHEM PANEL A/G Ratio 0.8 0.7 - 1.6 03/[address] CHEM PANEL AST 11 0 - 37 03/[address] CHEM PANEL Bili Total 0.2 0.2 - 1.3 03/[address] CHEM PANEL Alk Phos 69 39 - 136 03/[address] CHEM PANEL Total Protein 7.0 6.4 - 8.4 03/[address] CHEM PANEL ALT 21 0 - 65 03/[address] CHEM PANEL Albumin Lvl 3.2 3.5 - 5.0 03/22 [facility] ENDOCRINOLO Aldos/Renin 4.0 0.0 - 30.0 03/22 Result [facility] GY Ratio Comment: Medical Center Units: ng/dL per ng/mL/hr
Performed At: [facility]
[address] [place], [place] [id number]<br/ >Giovanna Puente MD Ph:[phone] ENDOCRINOLO Renin 1.095 0.167 - 03/22 Result [facility] GY Activity 5.380 /2017 Comment: This Medical test was Center developed and its performance characteristi cs
determ ined by [facility]. It has not been cleared or
approv ed by the Food and Drug Administratio n. ENDOCRINOLO Aldosterone 4.4 0.0 - 30.0 03/22 Result [facility] Comment: Medical
This Center test was developed and its performance characteristi cs
determ ined by [facility]. It has not been cleared or
approv ed by the Food and Drug Administratio n. HEMATOLOGY PTT 30.8 22.9 - 03/22 [place] 35.8 [facility] HEMATOLOGY INR 1.16 0.85 - 03/22 [facility] 1.17 [facility] HEMATOLOGY PT 14.8 12.0 - 03/22 [facility] 14.7 [facility] HEMATOLOGY Basophils # 0.1 0.0 - 0.2 03/22 [facility] LIPIDS CHD Risk 6.04 4.00 - 03/22 [facility] 7.30 [facility] LIPIDS LDL 57 <=99 mg/dL 03/22 [facility] (Calculated) [facility] LIPIDS HDL 24 >=61 mg/dL 03/22 [facility] LIPIDS Trig 318 <=149 03/22 [facility] mg/dL [facility] LIPIDS Chol 145 <=199 03/22 [facility] mg/dL [facility] LIPIDS VLDL 64 03/22 [facility] SPECIAL Hgb A1C 5.2 <=5.6 % 03/22 [facility] CHEMISTRY /2017 [facility] URINE CHEM U Normetaneph 85 Undefined 03/22 [facility] microgram/ [facility] URINE CHEM U 55 Undefined 03/22 [facility] Metanephrine microgram [facility] URINE CHEM U 0.2 0.0 - 1.0 03/22 Result [facility] Metanephrine Comment: Medical Creat
This Center test was developed and its performance characteristi cs
determ ined by [facility]. It has not been cleared or
approv ed by the Food and Drug Administratio n.
Perfor med At: [facility]
[address] [place], [place] [id number]< br/>Giovanna Puente MD Ph:[phone] URINE CHEM U Creat mg/dL 72.8 Not Estab. 03/22 [facility] mg/dL [facility] CHEM PANEL Osmolality 309 280 - 300 03/[address] IMMUNOLOGY CDC HIV 4th Negative Negative 03/22 [facility] GEN *NA* /2017 [facility] (03/22/18 2:20 AM) [place] URINE CHEM U Creatinine 50.80 03/[address] URINE CHEM U Protein 156.5 03/[address] URINE CHEM U Prot/Creat 3.08 03/[address] URINE CHEM U Creatinine 50.80 03/22 [facility] URINE CHEM U Sodium 79 03/[address] URINE CHEM U Potassium 10.1 03/[address] URINE CHEM U Osmolality 260 300 - 800 03/[address] URINE AND UA Color Yellow Yellow 03/22 [facility] STOOL *NA* /2017 [facility] (03/22/18 12:21 AM) [place] URINE AND UA Turbidity Clear Clear 03/22 [facility] (03/22/18 12:21 AM) /2017 [facility] URINE AND UA Spec Grav 1.025 <=1.030 03/22 [facility] /2017 [facility] URINE AND UA Protein >=300 Negative 03/22 [facility] STOOL mg/dL mg/dL [facility] URINE AND UA Glucose Negative Negative 03/22 [facility] (03/22/18 12:21 AM) /2017 [facility] URINE AND UA Ketones Negative Negative 03/22 [facility] STOOL *NA* [facility] (03/22/18 12:21 AM) [place] URINE AND UA Bili Negative Negative 03/22 [facility] *NA* /2017 [facility] (03/22/18 12:21 AM) [place] URINE AND UA 0.2 0.1 - 1.0 03/22 [facility] Urobilinogen /2017 [facility] URINE AND UA Nitrite Negative Negative 03/22 [facility] (03/22/18 12:21 AM) [facility] URINE AND UA Leuk Est Negative Negative 03/22 [facility] (03/22/18 12:21 AM) /2017 [facility] URINE AND UA Blood Moderate Negative 03/22 [facility] *ABN* /2017 [facility] (03/22/18 12:21 AM) [place] URINE AND Micro? Performed 03/22 [facility] (03/22/18 12:21 AM) /2017 [facility] URINE AND UA RBC 0-2 /HPF 0 - 2 03/22 [facility] /[address] [place] [address] URINE AND UA WBC None Seen None Seen 03/22 [facility] (03/22/18 12:21 AM) /2017 [facility] URINE AND UA pH 5.5 5.0 - 8.0 03/22 [facility] /[address] [place] [address] URINE AND UA Sq Epi None Seen Few 03/22 [facility] (03/22/18 12:21 AM) /2017 [facility] CARDIAC CK MB 10.1 0.5 - 3.6 03/22 [facility] ENZYMES /2017 [facility] CARDIAC CK MB Index 1.9 0.0 - 2.5 03/22 [facility] ENZYM[facility] /[address] [place] [address] CARDIAC Total CK 530 12 - 191 03/22 [facility] ENZYMES /[address] [place] [address] CHEM PANEL Lactic Acid 1.1 0.5 - 2.2 03/22 [facility] WB /2017 [facility] Pathology Reports No Data Provided for This Section Diagnostic Reports Report Value Date Source Chest 1view DX EXAM: XR CHEST 1 VIEW 03/23/2018 [facility] DATE: 03/23/2018 3:00 AM CDT Center INDICATION: - HTN emergency COMPARISON: None. TECHNIQUE: AP chest FINDINGS: Lines, tubes and hardware: None. Lungs and pleura: Lungs are clear. Costophrenic sulci are sharp. Heart and mediastinum: Cardiomediastinal silhouette is mildly enlarged. Bones: No acute bony abnormality is identified. IMPRESSION: 1. Cardiomediastinal silhouette is mildly enlarged which may be due to cardiomegaly and/or pericardial effusion. 2. No acute pulmonary abnormality. Retroperitoneal Complete EXAM: US RENAL 03/22/2018 [facility] DATE: 03/22/2018 at 0949 hours Center INDICATION: 47-year-old male presenting with secondary HTN ADDITIONAL INFORMATION: None. COMPARISON: None. TECHNIQUE: Multiplanar grayscale and color Doppler ultrasound of the kidneys and urinary bladder. FINDINGS: Right kidney: Size: 12.9 x 6.1 x 5.8 cm. Normal. Cortical thickness: Normal. Hydronephrosis: None. Echogenicity: Normal. Calculi: None. Cysts/Masses: None. Left kidney: Size: 13.5 x 7.4 x 6.9 cm. Normal. Cortical thickness: Normal. Hydronephrosis: None. Echogenicity: Normal. Calculi: None. Cysts/Masses: None. Bladder: Normal. Free fluid: None. Other: None. IMPRESSION: Unremarkable ultrasound of the kidneys. Consultation Notes No Data Provided for This Section Discharge Summaries No Data Provided for This Section History and Physicals No Data Provided for This Section Vital Signs Vital Sign Value Date Comments Source Temperature Oral (F) 98 F 10/24/2018 [facility] Respitory Rate 19 10/24/2018 [facility] Systolic (mm Hg) 201 10/24/2018 [facility] Diastolic (mm Hg) 100 10/24/2018 [facility] Respitory Rate 19 10/24/2018 [facility] Respitory Rate 18 10/24/2018 [facility] Systolic (mm Hg) 198 10/24/2018 [facility] Diastolic (mm Hg) 99 10/24/2018 [facility] Systolic (mm Hg) 229 10/24/2018 [facility] Diastolic (mm Hg) 103 10/24/2018 [facility] Temperature Oral (F) 98.2 F 10/24/2018 [facility] Height 185.42 cm 10/24/2018 [facility] BMI Calculated 46.93 10/24/2018 [facility] Weight 161.364 10/24/2018 [facility] Heart Rate 70 10/24/2018 [facility] Temperature Oral (F) 97.8 F 10/24/2018 [facility] Systolic (mm Hg) 137 09/24/2018 [facility] Diastolic (mm Hg) 78 09/24/2018 [facility] Respitory Rate 22 09/24/2018 [facility] Systolic (mm Hg) 156 09/24/2018 [facility] Center Diastolic (mm Hg) 93 09/24/2018 [facility] Center Respitory Rate 12 09/24/2018 [facility] Respitory Rate 15 09/24/2018 [facility] Systolic (mm Hg) 146 09/24/2018 [facility] Center Diastolic (mm Hg) 82 09/24/2018 [facility] Weight 161.364 09/24/2018 [facility] BMI Calculated 46.93 09/24/2018 [facility] Height 185.42 cm 09/24/2018 [facility] Heart Rate 75 09/24/2018 [facility] BMI Calculated 46.93 09/20/2018 [facility] Weight 161.364 09/20/2018 [facility] Height 185.42 cm 09/20/2018 [facility] Systolic (mm Hg) 156 03/28/2018 [facility] Diastolic (mm Hg) 81 03/28/2018 [facility] Heart Rate 78 03/28/2018 [facility] Respitory Rate 18 03/28/2018 [facility] Temperature Oral (F) 98.1 F 03/28/2018 [facility] Temperature Oral (F) 98.2 F 03/28/2018 [facility] Heart Rate 82 03/28/2018 [facility] Systolic (mm Hg) 149 03/28/2018 [facility] Center Diastolic (mm Hg) 71 03/28/2018 [facility] Respitory Rate 18 03/28/2018 [facility] Temperature Oral (F) 98.4 F 03/28/2018 [facility] Respitory Rate 19 03/28/2018 [facility] Heart Rate 79 03/28/2018 [facility] Systolic (mm Hg) 151 03/28/2018 [facility] Center Diastolic (mm Hg) 72 03/28/2018 [facility] BMI Calculated 47.44 03/22/2018 [facility] Weight 163.1 03/22/2018 [facility] Height 185.42 cm 03/22/2018 [facility] BMI Calculated 48.26 03/22/2018 [facility] Weight 165.909 03/22/2018 [facility] Height 185.42 cm 03/22/2018 [facility] Encounters Location Location Encounter Encounter Reason Attending ADM DC Status Source Details Type Number For Provider Date Date Visit [facility] [id number] Darvin 03/22 03/28 [facility] Pineda Castro /2017 [facility] [id number] Bg 09/24 09/25 [facility] [place] /2018 [facility] [id number] Marissa 10/24 10/24 [facility] Azleann Wahl /2018 [facility] Procedures Procedure Code Date Perfomer Comments Source Eye reconstruction [id number] [facility] Hernia repair [id number] [facility] Knee joint operation [id number] [facility] Assessment and Plan Assessment and Plan Date Source Extracted from:Title: Consult Note 10/24/2018 [facility] Author: Letitia Arboleda DO Date: 10/24/18 48 yo male with PMH HTN, DM with retinopathy, Hx TIA, morbid obesity,and recently declared ESRD with PD catheter placed last month without having had any dialysis who presented to ED at request of Dr. Freddie idaz's office yesterday. Was unclear as to why he was told to go to ED - nursing notes in [employer] state he may need to start dialysis. Pt states he is at baseline status and has not had labs d rawn for a while. He makes urine without obvious oliguria, and has chronic LE edema and orthopnea which resolves with upright positioning and is comfortable on RA without dyspnea. ED checked labs to see if there were emergent needs for dialysis, and consulted renal for evaluation given presumedreferral to ED by [place] renal clinic. # CKD5/ESRD not yet on dialysis # HTN, uncontrolled # volume overload # anemia of ESRD - access: PD cath in place without having been used before, no signs of infection or problems - though pt has peripheral edema, no respiratory compromise and makes urine - no electrolyte abnormalities, and met acidosis is mild - no emergent need to start dialysis now - Dr. Hayden discussed with Dr. Ray who reported that pt was meant to be told thatUT is unable to set him up with adialysis center locally asmanydo not take his insuranceand as he lives in [facility] eneeds to find a recruiter specialist there who can set him up with a dialysis center who will take his insurance or provide his dialysisas he should be initiated in approximately the next month. [facility]. - discussed thiswith patient and ED - ok for discharge from renal standpoint Discussed with Dr. Jackelyn Arboleda, Internal Medicine, PGY3 Teaching Physician Attestation: I saw and evaluated the patient and discussed with the resident. I reviewed the clinical data and confirmed the findings. We formulated the assessment and plans. I agre e with this. note.Pt needs to find a recruiter specialist and PD unit near his home. can facilitate. Godwin Hayden MD Extracted from:Title: Clinical Document 09/25/2018 [facility] Author: Donya Bennett RN Date: 09/24/18 Reason For Visit Need for permanent dialysis access . History of Present Illness Undray White is a 48 year old right handed patient with CKD who presents for evaluation for permanent dialysis access. The patient is not yet undergoing HD. He has had no previous HD access procedures. Review of Systems Constitutional: fatigue. Respiratory: shortness of breath during exertion. Musculoskeletal: limb swelling. Active Problems 1. DM type 2, uncontrolled, with renal complications (250.42) (E11.29,E11.65) 2. Edema of both legs (782.3) (R60.0) 3. ESRD (end stage renal disease) (585.6) (N18.6) 4. HTN (hypertension), benign (401.1) (I10) 5. Nephrotic range proteinuria (791.0) (R80.9) 6. Retinopathy, diabetic, bilateral (250.50,362.01) (E11.319) 7. Stage 5 chronic kidney disease (585.5) (N18.5) 8. TIA (transient ischemic attack) (435.9) (G45.9) Allergies - Allergies list reconciled and reviewed. 1. No Known Drug Allergies Past Medical History 1. History of No known problems (V49.89) (Z78.9) Family History 1. Family history of Active medical problems: none : Mother, Father, Sibling Vitals UTP Adult Vital Signs Recorded: [id number] 05:34PM Height: 6 ft 1 in Weight: 349.6 lb BMI Calculated: 46.12 BSA Calculated: 2.73 Blood Pressure: 189 / 93 Temperature: 97.4 F Heart Rate: 78 Current Meds medication list reconciled and reviewed 1. Atorvastatin Calcium 10 MG Oral Tablet; Therapy: (Recorded:01May2018) to Recorded 2. Calcitriol 0.25 MCG Oral Capsule; Therapy: (Recorded:01May2018) to Recorded 3. Carvedilol 12.5 MG Oral Tablet; TAKE 1 TABLET BY MOUTH TWICE A DAY BY MOUTH Requested for: 08Aug2018; Last Rx:[id number]; Status: ACTIVE - Retrospective Authorization Ordered 4. Furosemide 80 MG Oral Tablet; TAKE 1 TABLET BY MOUTH TWICE DAILY; Therapy: 08Aug2018 to (Evaluate:06Dec2018) Requested for: 08Aug2018; Last Rx:[id number]; Status: ACTIVE - Retrospective Authorization Ordered 5. hydrALAZINE HCl - 50 MG Oral Tablet; Therapy: (Recorded:01May2018) to Recorded 6. Isosorbide Dinitrate 20 MG Oral Tablet; Therapy: (Recorded:01May2018) to Recorded 7. NIFEdipine ER 60 MG Oral Tablet Extended Release 24 Hour; TAKE 1 TABLET TWICE DAILY; Therapy: 08Aug2018 to (Evaluate:06Dec2018) Requested for: 08Aug2018; Last Rx:[id number]; Status: ACTIVE - Retrospective Authorization Ordered 8. NIFEdipine ER 60 MG Oral Tablet Extended Release 24 Hour; Therapy: (Recorded:01May2018) to Recorded 9. Plavix 75 MG Oral Tablet; Therapy: (Recorded:01May2018) to Recorded 10. Sevelamer Carbonate 800 MG Oral Tablet; Therapy: (Recorded:01May2018) to Recorded 11. Sodium Bicarbonate 650 MG Oral Tablet; Therapy: (Recorded:01May2018) to Recorded Physical Exam General: alert and oriented,in no acute distressandwell nourished. Neck: the neck was supple,no neck mass was observedandthe appearance of the neck was normal. Pulmonary: normal respiratory rhythm and effortandclear bilateral breath sounds. Cardiac: heart rate and rhythm were normal. Vascular: no edemaandnormal femoral pulses. Pulses: Right brachial pulse: positive. Left brachial pulse: positive. Right radial pulse: positive. Left radial pulse: positive. Lymphatics: no lymphadenopathy. Abdomen: soft,non-tenderandno abdominal mass palpated. Neurologic: the motor exam was normal, butthe sensory exam was normal to light touch and pinprick. Musculoskeletal: muscle strength and tone were normal. Skin: no skin lesions. Psychiatric: oriented to person, place, and timeandthe affect was normal. Assessment Patient is a 48-year-old man with diet-controlled diabetes, hypertension, and chronic renal insufficiency. He requires dialysis access. He is right-handed and makes plenty of urine. He had an umbilical hernia repair as a child. I had an extensive discussion with him about peritoneal versus hemodialysis. Vein mapping showed bilateral left basilic and cephalic veins in the forearm and upper arm adequate for use as access conduit. However, the patient eventually decided that he preferred peritoneal dialysis. We will schedule him for laparoscopic peritoneal dialysis catheter placement on 09/24/2018. Plan 1. CVRAD - Left Upper Vein Mapping Limited - [id number]; Status:Active - Retrospective Authorization; Requested for:[id number]; Future Appointments Date/Time Provider Specialty Site 08/30/2018 10:00 AM TREY LINK M.D. Internal Medicine [facility] Risk and Benefits Risks, benefits, and alternate therapies including non-operative management were discussed with the patient. Patient verbalizes understanding and wishes to proceed. The patient understands that there is a potential for infection, blood clots in veins and lungs, hemorrhage, allergic reaction, and even . Other risks include: multi-organ failure. Also, catheter infection or dysfunction. Extracted from:Title: Nephrology Progress Note 03/28/2018 [facility] Author: Destiney Bell MD Date: 03/28/18 Subjective No acute events overnight. OSH records were obtained and we were able to confirm patient had previous CKD. Health Status Allergies: Allergic Reactions (Selected) Severity Not Documented Morphine- Nausea. Objective Meds Scheduled Meds (11):NIFEdipine (NIFEdipine 60 mg oral tablet, extended release) , calcitriol, carvedilol, docusate, heparin, hydrALAZINE (hydrALAZINE 25 mg oral tablet), isosorbide dinitrate, melatonin ( melatonin 3 mg oral tablet), polyethylene glycol 3350 (MiraLax), sevelamer, sodium bicarbonate Unscheduled Meds: None PRN Meds (10):Dextrose 50% in Water IV (Dextrose 50% Syringe), Dextrose 50% in Water IV (Dextrose 50% Syringe), acetaminophen, glucagon, insulin lispro, insulin lispro, insulin lispro, insulin lispro, insulin lispro, labetalol One Time Meds (3):(Completed) Dextrose 50% in Water IV (D50W (bolus) IV), ( Completed) Insulin regular, (Completed) sodium polystyrene sulfonate (Kayexalate ) Continuous Infusions: None I&O Input/Output Record In Out Bal 03/28 24hr Tot 0 700 -700 03/27 24hr Tot 770 [id number] -[id number] VS/Measurements Vital Signs (last 24 hrs) Last Charted Temp Oral 98.1 DegF (MAR 28:35) Heart Rate Peripheral 78 bpm (MAR 28:) Resp Rate 18 BRMIN (MAR 28:) SBP H 156mmHg (MAR 28:) DBP 81 mmHg (MAR 28:) SpO2 99 % (MAR 28:) General: Awake, alert, comfortable and cooperative. Morbidly obese patient. HEENT:EOMI, PERRL. Anicteric sclera. MMM. Large right sided, small left sided ear keloids present. Neck: Supple, no thyromegaly, no cervicalLAP. Resp:Clear to auscultation bilaterally, no wheezes, rales or rhonchi. CV: RRR, normal s1, s2, no murmurs, rubs, gallops. No JVD Abd:Normoactive bowel sounds. Soft, non-tender, nondistended.Negative CVA tenderness. MSK: Appropriate muscle tone.No clubbing, cyanosis, or pitting edema. Integ: No rashes or ulcers noted. Not jaundiced. Neuro: Alert, oriented x3. No focal deficits noted. Review / Management Results review: Labs (Last four charted values) WBC 5.8 (MAR 27) 5.3 (MAR 26) 5.6 (MAR 25) 4.6 (MAR 24) Hgb L 8.0 (MAR 27) L 8.0 (MAR 26) L 8.1 ( MAR 25) L 7.8 (MAR 24) Hct L 23.2 (MAR 27) L 22.9 (MAR 26) L 23.0 ( MAR 25) L 22.9 (MAR 24) Plt 184 (MAR 27) 174 (MAR 26) 182 (MAR 25) 180 (MAR 24) Na 141 (MAR 28) 139 (MAR 27) 137 (MAR 27) 138 (MAR 26) K 4.9 (MAR 28) 4.4 (MAR 27) H 5.4 (MAR 27 ) 4.6 (MAR 26) CO2 26 (MAR 28) L 21 (MAR 27) L 20 (MAR 27) L 19 (MAR 26) Cl 106 (MAR 28) 107 (MAR 27) 108 (MAR 27) 107 (MAR 26) Cr H 8.79 (MAR 28) H 8.87 (MAR 27) H 8.81 ( MAR 27) H 8.86 (MAR 26) BUN H 67 (MAR 28) H 64 (MAR 27) H 71 (MAR 27 ) H 66 (MAR 26) Glucose Random H 142 (MAR 28) H 103 (MAR 27) H 122 ( MAR 27) H 129 (MAR 26) Mg 1.9 (MAR 26) L 1.6 (MAR 25) L 1.7 (MAR 24) L 1.6 (MAR 23) Phos H 5.7 (MAR 28) H 5.0 (MAR 27) H 5.6 ( MAR 26) H 5.9 (MAR 25) Ca L 8.1 (MAR 28) 8.6 (MAR 27) L 8.4 (MAR 27) L 8.0 (MAR 26) PT H 14.8 (MAR 22) INR 1.16 (MAR 22) PTT 30.8 (MAR 22) CK MB H 10.1 (MAR 21) Total CK H 280 (MAR 27) H 295 (MAR 26) H 530 ( MAR 21) . Impression and Plan 47-year-old man with past medical history of hypertension, type 2 diabetes, TIA in 2014, morbid obesity was referred to the hospital by his poolroom table attendant due to elevated creatinine levels and hyperkalem ia. Was found to have hypertensive emergency on admission and admitted to ICU. Nephrology was consulted for JASON #JASON vs CKD - Patient likely has CKD due to diabetic nephropathy and HTN, with recent progression due to uncontrolled BP. - Admission Cr 9.11 mg/dl, today 8.79 mg/dl, stable around 8.8 range, which is likely patient's new baseline. - Non-oliguric, has good urine output. - Cr 4.58, BUN 38 in September 2017 per OSH records. - Patient's opthalmology office was called, he has diabetic retinopathy and received bilateral laser therapy. - 03/22/2018 kidney US unremarkable. - 24 urine for protein collection showing nephrotic range proteinuria. No active urine sediment. - Repeat CK 280, down from 530 - HIV, Hepatitis panel, and RPR negative. - PTH 374.3. Please check vit D levels. Patient will benefit from Calcitriol and Ergocalciferol if low. - No indication for HD at this time. #Volume status - Currently euvolemic #Acid/ Base - Metabolic acidosis due to JASON/CKD - Continue NaHCO3 tablets 650 mg TID #Anemia - Hgb 8.0 today, stable - Monitor and consider transfusion for Cr <7 g/dl #Hypertension - Currently on Nifedipine 60 mg BID, Hydralzine 75 mg TID, ISDN 20 mg TID. - Also started on Carvedilol 12.5 mg PO BID - Agree with no ACEI/ARB at this time. - Patient was counseled for life style changes. Addendum by Malcom Ruiz MD on 03/28/2018 22:37 I saw and evaluated the patient on 03-28-18. I reviewed the history/interval events; vital signs and medications; and laboratory, radiologic, and other data. I discussed this case in detail with Dr. Bell, and I agree with this note. Malcom Ruiz MD District Sales Representative Division of Renal Diseases and Hypertension [facility] [employer] Extracted from:Title: [place] [facility] Author: Trey Conrad MD Date: 03/22/18 History of Present Illness 47yo M with PMH HTN, DM2, TIA (2014), obesity is in MICU because he was called by his poolroom table attendant for increase renal function numbers. he had gone to see his poolroom table attendant on 03/21 to get clearance for cataract surgery but was called back for the same reason. He says his SBP in cardiology clinic was in 200s but was sent home as it is always high when he goes to see a doctor. He denies any chest pain/ SOB/ nausea/ vomiting/ lighheadedness or dizziness. He denies any dysuria and hematuria. He wasstarted on Cardene drip at the time admission with initial diagnosis of Hypertensive Emergency along with JASON. Review of Systems Constitutional Symptoms: no fever, no weight loss, no weight gain, no fatigue, Eyes: no blurred vision, no loss of vision Cardiovascular: no chest pain, no SOB, no BRANHAM, no orthopnea, exercise tolerated , no palpitations Respiratory: same as CVS, no cough, no hemoptysis Gastrointestinal: no NVD, no dark stool, no constipation, no abdominal pain, no distension or bloating Genitourinary: no dysuria, no frequency, no urgency Integumentary: no rash, no hives, no mass Neurological: no weakness, no headache, no seizure, no dizziness, chronic tingling in left foot since TIA years ago, no numbness Psychiatric: no anxiety, no depression, no insomnia Endocrine: no polyuria, no polydipsia, no fatigue, no weight loss, no weight gain, no cold or heat intolerance, no palpitations Hematologic/Lymphatic: no bleeding, no bruising, intermittent edema, no lumps ( axilla groin neck) Health Status Allergies: Allergic Reactions (All) Severity Not Documented Morphine- Nausea. Canceled/Inactive Reactions (All) Severity Not Documented NKDA- Nausea., Allergies (1) Active Reaction morphine Nausea Current medications: (Selected) Inpatient Medications Ordered Cardene 20 mg in NS 200 mL (Titrate.) IV 20 mg: Titrate, IV, Stop: 04/21/18 4: 06:00 CDT Dextrose 50% Syringe: 12.5 gm, 25 mL, IVP, PRN, PRN: Blood Glucose Results Dextrose 50% Syringe: 25 gm, 50 mL, IVP, PRN, PRN: Blood Glucose Results Saline Flush 0.9%: 10 ml, IVP, PRN, PRN: Line Flush Saline Flush 0.9%: 10 ml, IVP, Q12H glucagon: 1 mg, IM, PRN, PRN: Blood Glucose Results insulin lispro: 1 unit, 0.01 mL, SUB-Q, TID-Before Meals, PRN: Blood Glucose Results insulin lispro: 2 unit, 0.02 mL, SUB-Q, TID-Before Meals, PRN: Blood Glucose Results insulin lispro: 3 unit, 0.03 mL, SUB-Q, TID-Before Meals, PRN: Blood Glucose Results insulin lispro: 4 unit, 0.04 mL, SUB-Q, TID-Before Meals, PRN: Blood Glucose Results insulin lispro: 5 unit, 0.05 mL, SUB-Q, TID-Before Meals, PRN: Blood Glucose Results Documented Medications Documented amLODIPine-atorvastatin 10 mg-10 mg oral tablet: 1 tab, PO, Bedtime, 30 tab, 0 Refill(s) glimepiride 2 mg oral tablet: 2 mg, 1 tab, PO, Breakfast, 30 tab, 0 Refill(s) hydrochlorothiazide-valsartan 25 mg-320 mg oral tablet: 1 tab, PO, Daily, 30 tab, 0 Refill(s) metFORMIN 1000 mg oral tablet: 1,000 mg, 1 tab, PO, BID, 0 Refill(s) spironolactone 50 mg oral tablet: 50 mg, 1 tab, PO, Daily, for 30 day, 30 tab, 1 Refill(s), Medications (11) Active Scheduled: (1) sodium chloride 0.9% 10 ml flush syr BD 10 ml, IVP, Q12H Continuous: (1) niCARdipine 20mg/NS 200ml IV Soln 20 mg 20 mg 200 mL, IV PRN: (9) Dextrose 50% 50 ml INJ syringe 12.5 gm 25 mL, IVP, PRN Dextrose 50% 50 ml INJ syringe 25 gm 50 mL, IVP, PRN glucagon recombinant 1 mg PDR 1 mg, IM, PRN insulin lispro 100 unit/ml 3 ml Vial 1 unit 0.01 mL, SUB-Q, TID-Before Meals insulin lispro 100 unit/ml 3 ml Vial 2 unit 0.02 mL, SUB-Q, TID-Before Meals insulin lispro 100 unit/ml 3 ml Vial 3 unit 0.03 mL, SUB-Q, TID-Before Meals insulin lispro 100 unit/ml 3 ml Vial 4 unit 0.04 mL, SUB-Q, TID-Before Meals insulin lispro 100 unit/ml 3 ml Vial 5 unit 0.05 mL, SUB-Q, TID-Before Meals sodium chloride 0.9% 10 ml flush syr BD 10 ml, IVP, PRN Problem list: No qualifying data available Histories Past Medical History: No active or resolved past medical history items have been selected or recorded. Family History: Hypertension Mother Cancer, Prostate Mother Procedure history: Knee joint operation ([id number]). Eye reconstruction ([id number]). Social History Social and Psychosocial Habits Alcohol 03/22/2018 Use: Never Substance Abuse 03/22/2018 Use: None Tobacco 03/21/2018 Use: Never smoker Concerns about tobacco use in household: No Exposure to Tobacco Smoke None Cigarette Smoking Last 365 Days No Reg Smoking Cessation Counseling No . Physical Examination VS/Measurements Vital Signs (last 24 hrs) Last Charted Temp Oral 97.7 DegF (MAR 22 04:00) Heart Rate Apical 89 bpm (MAR 22 06:00) Resp Rate 18 BRMIN (MAR 22 06:00) SBP H 166mmHg (MAR 22 06:00) DBP 79 mmHg (MAR 22 06:00) SpO2 99 % (MAR 22 06:00) Weight 163.1 kg (MAR 22 04:08) Height 185.42 cm (MAR 22 04:08) BMI 47.44 (MAR 22 04:08) , Measurements from flowsheet : Measurements 03/22/2018 04:08 Heparin Dosing Weight (kg) 113.18 03/22/2018 04:08 Height 185.42 cm Height Collection Method Stated Weight 163.1 kg Dosing Weight Difference Percent -1.693 % Dosing Weight Collection Method Measured Body Surface Area 2.8984 m2 Body Mass Index 47.44 m2 03/21/2018 20:03 Heparin Dosing Weight (kg) 114.30 03/21/2018 19:57 Height 185.42 cm Height Collection Method Stated Weight 165.909 kg Dosing Weight Difference Percent 8.955 % Dosing Weight Collection Method Estimated Body Surface Area 2.9232 m2 Body Mass Index 48.26 m2 General: NAD, obese, sitting comfortably, HEENT: NCAT, EOMI, no discharge, keloids on bilateral ears. Neck: ROM wnl, no JVD or cervical adenopathy CV: RRR, no extra heart sounds or murmurs. pulses 2+ in bilateral UE and LE. + 1 bilateral pitting edema in B/l . Pulmonary: CTAB, non distressed, no wheezes, crackles, or rhonchi, nontender to palpation Abdomen: obese, active bowel sounds, nontender to palpation, Neuro: Alert, oriented x4, CN II-XII intact. MSK: muscle strength 5/5 in bilateral UE and LE. appropriate muscle tone. : No CVA tenderness Skin: Warm, dry, no rashes, or petechiae Psych: mood normal, behavior normal. Review / Management Results review: Labs (Last four charted values) WBC 5.5 (MAR 22) 5.7 (MAR 21) Hgb L 8.5 (MAR 22) L 9.8 (MAR 21) Hct L 24.3 (MAR 22) L 28.4 (MAR 21) Plt 193 (MAR 22) 218 (MAR 21) Na 140 (MAR 22) 138 (MAR 22) 136 (MAR 21) 138 (MAR 21) K 4.8 (MAR 22) H 5.5 (MAR 22) H 5.9 (MAR 21) H 5.9 (MAR 21) CO2 L 16 (MAR 22) L 18 (MAR 22) L 18 (MAR 21 ) L 19 (MAR 21) Cl H 112 (MAR 22) 106 (MAR 22) 105 (MAR 21 ) 105 (MAR 21) Cr H 8.73 (MAR 22) H 8.93 (MAR 22) H 9.11 ( MAR 21) H 9.11 (MAR 21) BUN H 64 (MAR 22) H 68 (MAR 22) H 69 (MAR 21 ) H 71 (MAR 21) Glucose Random 84 (MAR 22) 74 (MAR 22) 76 (MAR 21) 99 (MAR 21) Mg L 1.4 (MAR 22) Phos H 5.6 (MAR 22) Ca L 8.0 (MAR 22) 8.7 (MAR 22) 9.0 (MAR 21 ) 9.0 (MAR 21) PT H 14.8 (MAR 22) INR 1.16 (MAR 22) PTT 30.8 (MAR 22) CK MB H 10.1 (MAR 21) Total CK H 530 (MAR 21) . Impression and Plan 47yo M with PMH HTN, DM, TIA who was referred to hospital by Lead Process Engineer for concern for Acute renal failure after blood work showed elevated creatinine and hyperkalemia. Pt had Creatinine was found to be 9.11 (GFR 7) and was given 1L IVF with reduction to 8.93 (GFR 7). Renal evaluated, determined no need for emergent dialysis at this time. Pt admitted to MICU for HTN emergency. 1. Acute Kidney injury - Non oliguric UOP 390 cc overnight - possibly sec to hypertensive emergency but most likely to ahve CKD associated sec to resistant HTN and also Diabetes - no signs or symptoms of Uremia. no indication for emergent hemodialysis - maintain strict I and O - avoid nephrotoxins like NSAIDs or IV contrast studies unless benefits outweigh risks - hold CLAUDE-I and ARBs - renally dose medications 2. HTN - uncontrolled/resistant - In ED pt found to have BP of 241/123 which initially corrected to 186/88 with 10mg labetolol but SBP started to bounce back to 200s. - continue cardene drip - resume home meds but avoid CLAUDE-I/ARB because of JASON and Hyper-K 3. Hyperkalemia - Hyperkalemia of 5.9 in ER and was given albuterol, lasix 40mg IV, kayexalate 15gm, and Insulin 5units with Dextrose and corrected to 5.5. - sec to JASON - medical management for now. No indication for HD 4. Volume status - euvolemic 5. Acid base - HCO3 - 16 - metabolic acidosis with anion gap of 12 - possibly sec to renal injury - start Bicitra 15 ml TID Addendum by Trey Conrad MD on 03/22/2018 15:16 CRITICAL CARE NEPHROLOGY STAFF ATTESTATION I saw this medically complex patient, reviewed the labs and radiographic data, discussed the plans with the Fellow, and agree with this note. Trey Conrad MD, FACP, FASN, FCCM Extracted from:Title: MICU History and Physical Author: Luba Franklin MD Date: 03/22/18 47yo M with PMH HTN, DM, TIA who was referred to hospital byCardiologist for concern for Acute renal failure after blood work showed elevated creatinine and hyperkalemia. In ED pt found to have BP of 24 1/123 which initially corrected to 186/88 with 10mg labetolol but SBP started to bounce back to 200s.Pt had Hyperkalemia of 5.9 andwas given albuterol, lasix 40mg IV, kayexalate 15gm, andInsulin 5units withDextrose and corrected to 5.5. Creatinine was found to be 9.11 (GFR 7)and was given 1L IVF with reduction to 8.93 (GFR 7). Renal evaluated, determined no need for emergent dialysis at this time. Pt admitted to MICU for HTN emergency. Problem List - Hypertensive Emergency - Hyperkalemia - Acute Renal Failure - Normocytic Anemia Neuro - Alert and oriented x 3. No issues. CV #HTN Emergency - 220s/110s. on 3-4 BP medications at home including: Amlodipine, HCTZ- valsartan, and spironolactone. received 10mg labetolol in ED. - Start on Cardene drip. Goal SBP 180 (25% reduction of initial 241 on presentation) - Given pt compliance at home with meds, and inability to control HTN, will need 2/2 workup. - Ordered urine metanephrines - Ordered salivarycortisol. Can consider 24hr cortisol if pt here for longer period of time. - f/u CXR, EKG Respiratory - sat 100% on RA. No issues Renal #Acute Renal Failure - likely 2/2HTN Emergency. Pt still producing urine. - Cr 9.11 now 8.93. BUN 71-->65. GFR 7 - Given 1L IVF in ED. - Per ED, Renal saw patientdetermined no need for emergentdialysis. - Treat underlying cause, HTN. #Hyperkalemia - 5.9-->5.5 after receiving Albuterol, furosemide 40mg IV, insulin 5units in ED. - f/u BMP. continue to monitor GI - Asymptomatic. Has regular bowel movements. no issues. Heme # Normocytic anemia - Hgb 9.8. MCV 85.7. - unknown chronicity. - f/u CBC. Can consider starting Ferrous sulfate 325mg. Endo #DiabetesMellitus type 2 - On home glimepiride and metformin. -f/u A1c.Can start SSI with meals. DVT ppx: SCD. Will avoid heparin for now given HTN emergency Diet: Heart healthy diet. Dispo: ICU for control of emergent HTN. Addendum by Luba Franklin MD on 03/22/2018 06:39 CDT also f/u aldosterone/renin ratio as part of 2/2 work up for resistant emergent HTN. Addendum by Jose Shukla MD on 03/22/2018 12:49 CDT PCCM attending note: I have seen and evaluated the pt with the team and I agree with the note by Dr. Franklin dated 03/22/2018 Labs and imaging reviewed Hypertensive emergency. Nicardipine gtt, start scheduling BP meds ATN, Hyperkalemia. Renal following. IVF. No HD for now. W/u for sec causes of refractory HTN T2DM, monitor start SQ heparin Plan of Care No Data Provided for This Section Social History Social History Date Source Social History TypeResponse 03/22/2018 [facility] Substance Abuse Use: None. Alcohol Never Smoking Status Never smoker; Concerns about tobacco use in household: No; Exposure to Tobacco Smoke None; Cigarette Smoking Last 365 Days No; Reg Smoking Cessation Counseling No entered on: 10/24/18 Family History No Data Provided for This Section Advance Directives No Data Provided for This Section Functional Status No Data Provided for This Section
--- OUTSIDE RECORDS SUMMARY | 2019-03-16 13:25 | XMS REPORT ---
:1970 Author Organization [facility] Address [address] [place] [address] [address] [place] [address] Care Team Providers Name Role Phone Unavailable Unavailable Unavailable Problems This patient has no known problems. Allergies, Adverse Reactions, Alerts This patient has no known allergies or adverse reactions. Medications This patient has no known medications. Encounters Start End Encounter Admission Attending Care Care Encounter Date/Time Date/Time Type Type Clinicians Facility Department ID 2018-10-24 2018-10-24 Emergency E [facility] [id number] 07:02:00 07:02:00 2018-09-24 2018-09-24 Outpatient [facility] [id number] 05:19:00 05:19:00
[2019-03-16] MEDS ORDERED: CLINDAMYCIN 600MG/D5W 600 MG/50 ML BAG IV ONE (15:06)
--- NOTE | 2019-03-16 15:26 | RAD REPORT ---
EXAM DESCRIPTION: CT - Abdomen Pelvis Wo Contrast - 03/16/2019 3:14 pm CLINICAL HISTORY: Abdominal pain. peretoneal dialysis cath was partially pulled. ?location COMPARISON: [facility] PROTOCOL dated 01/25/2014 TECHNIQUE: CT imaging of the abdomen and pelvis was performed without contrast. Solid organ, bowel a nd vascular assessment is limited due to lack of IV and oral contrast. All CT scans are performed using dose optimization technique as appropriate and may include automated exposure control or mA/KV adjustment according to patient size. FINDINGS: Small right pleural effusion.Linear atelectasis in the right lung base. The liver, spleen, pancreas, adrenal glands and kidneys are within normal limits for a limited non-co ntrast examination. No bowel obstruction, free air, free fluid or abscess. The appendix is normal. The osseous structures are within normal limits.Peritoneal dialysis catheter is coiled in the inferio r peritoneal cavity. IMPRESSION: No acute intra-abdominal or pelvic findings. Peritoneal dialysis catheter coiled in the inferior peritoneal cavity. A limited non-contrast examination was performed as detailed.
[2019-03-16 15:55] LABS: Absolute Lymphocytes (CBC) 0.4 K/uL (0.7-4.9); Basophils % 1.1 % (0-1.3); Hematocrit 17.1 % (39.6-49.0); Lymphocytes % 10.7 % (15.3-44.8); MPV 8.7 fL (7.6-11.3); RBC Red Blood Cell Count 2.03 M/uL (4.33-5.43)
[2019-03-16 16:15] LABS: Albumin 3.3 g/dL (3.4-5.0); Bilirubin Direct 0.1 mg/dL (0-0.2); Bilirubin Total 0.3 mg/dL (0.2-1.0); Potassium 4.1 mmol/L (3.5-5.1)
[2019-03-16] MEDS ORDERED: NA CHLORIDE 0.9% 250 ML ONE (19:52)
--- NOTE | 2019-03-16 23:43 | ER ---
Nurse's Notes [facility] Name: Undray White Age: 48 yrs Sex: Male : 1970 Arrival Date: 03/16/2019 Time: 13:21 Bed 8 Private MD: Kiko Culp Diagnosis: Cellulitis of abdominal wall;Anemia in chronic kidney disease Presentation: 03/16 13:25 Presenting complaint: Patient states: I do peritoneal dialysis, I just started using it la1 about 3 days ago. I was getting out of bed and think I pulled on it and maybe tore something because it has been bleeding for a few days. Transition of care: patient was not received from another setting of care. Onset of symptoms was March 16, 2019. Risk Assessment: Do you want to hurt yourself or someone else? Patient reports no desire to harm self or others. Initial Sepsis Screen: Does the patient meet any 2 criteria? No. Patient's initial sepsis screen is negative. Does the patient have a suspected source of infection? No. Patient's initial sepsis screen is negative. Care prior to arrival: None. 13:25 Method Of Arrival: Ambulatory la1 13:25 Acuity: YESENIA 3 la1 Triage Assessment: 13:30 General: Appears in no apparent distress. comfortable, obese, Behavior is calm, bp cooperative, appropriate for age. Pain: Complains of pain in abdomen. EENT: No deficits noted. Neuro: No deficits noted. Cardiovascular: No deficits noted. Respiratory: No deficits noted. GI: No signs and/or symptoms were reported involving the gastrointestinal system. : No signs and/or symptoms were reported regarding the genitourinary system. Derm: No deficits noted. Musculoskeletal: No deficits noted. Historical: - Allergies: 13:27 Morphine (Vomiting); la1 - Home Meds: 18:19 amlodipine 10 mg tab once daily [Active]; atorvastatin 40 mg Oral tab 1 tab once daily ae4 [Active]; gabapentin 300 mg Oral cap twice a day [Active]; hydrochlorothiazide 12.5 mg Oral tab 1 tab once daily [Active]; metformin 500 mg Oral tr24 1 tab once daily [Active]; valsartan-hydrochlorothiazide 320-12.5 mg Oral tab once daily [Active]; - PMHx: 13:27 Diabetes - NIDDM; High Cholesterol; Hypertension; peritoneal dialysis; la1 18:19 Dialysis; ae4 - Immunization history:: Adult Immunizations up to date. - Social history:: Smoking status: Patient/guardian denies using tobacco, Patient/guardian denies using alcohol, street drugs, The patient lives. - Ebola Screening: : No symptoms or risks identified at this time. - Family history:: not pertinent. Screenin:42 Abuse screen: Denies threats or abuse. Denies injuries from another. Nutritional bp screening: No deficits noted. Tuberculosis screening: No symptoms or risk factors identified. Fall Risk None identified. Assessment: 13:30 General: SEE TRIAGE NOTE. bp 15:58 Reassessment: Patient appears in no apparent distress at this time. Patient and/or ae4 family updated on plan of care and expected duration. Pain level reassessed. Patient states feeling better. 17:00 General: Appears in no apparent distress. comfortable. Neuro: Level of Consciousness is ae4 awake, alert, obeys commands, Oriented to person, place, time, situation, Appropriate for age. Respiratory: Airway is patent. 19:15 Reassessment: Patient appears in no apparent distress at this time. No changes from previously documented assessment. Patient and/or family updated on plan of care and expected duration. Pain level reassessed. Patient is alert, oriented x 3, equal unlabored respirations, skin warm/dry/pink. Consent for BT done Patient denies pain at this time. 20:15 Reassessment: Patient appears in no apparent distress at this time. No changes from previously documented assessment. Patient and/or family updated on plan of care and expected duration. Pain level reassessed. Patient is alert, oriented x 3, equal unlabored respirations, skin warm/dry/pink. BP elevated notified Provided Pt hasn't taken Night Time BP meds. Provided gave the go ahead to take Night BP meds prior to BT. Patient denies pain at this time. 20:15 Reassessment: BT initiated Pt with no signs of distress noted. 21:30 Reassessment: Patient appears in no apparent distress at this time. No changes from previously documented assessment. Patient and/or family updated on plan of care and expected duration. Pain level reassessed. Patient is alert, oriented x 3, equal unlabored respirations, skin warm/dry/pink. Patient denies pain at this time. 23:00 Reassessment: Patient appears in no apparent distress at this time. Patient and/or jb4 family updated on plan of care and expected duration. Pain level reassessed. Patient is alert, oriented x 3, equal unlabored respirations, skin warm/dry/pink. 23:15 Reassessment: Transfusion Complete. jb4 03/17 00:00 Reassessment: Patient appears in no apparent distress at this time. Patient and/or jb4 family updated on plan of care and expected duration. Pain level reassessed. Patient is alert, oriented x 3, equal unlabored respirations, skin warm/dry/pink. Pt verbalized understanding of d/c and follow up instructions. Vital Signs: 03/16 13:27 Pulse 73; Resp 16; Temp 97.1; Pulse Ox 97% on R/A; Weight 154.22 kg; Height 6 ft. 1 in. la1 (185.42 cm); 13:28 BP 188 / 96; la1 15:45 BP 204 / 86; Pulse 86; Resp 18; Pulse Ox 100% on R/A; ae4 15:49 BP 204 / 86; Pulse 69; Resp 16; Pulse Ox 100% on R/A; ae4 15:57 BP 175 / 67; Pulse 69; Resp 18; Pulse Ox 100% on R/A; ae4 18:21 BP 184 / 75; Pulse 76; Resp 18; Pulse Ox 95% on R/A; ae4 19:30 BP 205 / 85; Pulse 67; Resp 18; Pulse Ox 100% on R/A; wh 20:30 BP 200 / 69; Pulse 72; Resp 18; Pulse Ox 98% on R/A; wh 21:30 BP 172 / 94; Pulse 66; Resp 18; Pulse Ox 99% on R/A; wh 23:15 BP 210 / 100; Pulse 69; Resp 18; Temp 97.8(O); Pulse Ox 100% on R/A; Pain 0/10; jb4 13:27 Body Mass Index 44.86 (154.22 kg, 185.42 cm) la1 ED Course: 13:21 Patient arrived in ED. as 13:21 Kiko Culp DO is Private Physician. as 13:26 Triage completed. la1 13:28 Arm band placed on right wrist. la1 13:29 Jorge Alberto Campuzano, RN is Primary Nurse. bp 14:03 Rio Cameron MD is Attending Physician. ma2 14:42 Patient has correct armband on for positive identification. Bed in low position. Call bp light in reach. Side rails up X2. 15:14 CT completed. Patient tolerated procedure well. Patient moved back from CT. mw3 15:15 CT Abd/Pelvis - Without Contrast In Process Unspecified. EDMS 15:48 Inserted saline lock: 22 gauge in right forearm, using aseptic technique. ,using ae4 aseptic technique. Inserted by MALLY Lombardi Tech. Blood collected. Missed attempt(s): 20 gauge in right antecubital area. 15:58 compliance monitor on. Pulse ox on. NIBP on. Warm blanket given. ae4 17:06 T\T\S collected, blood band applied to patient. jb1 19:23 Narciso Gil NP is PHCP. pm1 03/17 00:02 No provider procedures requiring assistance completed. IV discontinued, intact, jb4 bleeding controlled, No redness/swelling at site. Pressure dressing applied. Administered Medications: 03/16 15:47 Drug: Clindamycin 600 mg Route: IVPB; Infused Over: 30 mins; Site: right forearm; ae4 16:39 Follow up: IV Status: Completed infusion ae4 Outcome: 23:42 Discharge ordered by . pm1 03/17 00:02 Patient left the ED. 00:02 Discharged to home ambulatory, with family. jb4 00:02 Condition: stable 00:02 Discharge instructions given to patient, Instructed on discharge instructions, follow up and referral plans. medication usage, Demonstrated understanding of instructions, follow-up care, medications, Prescriptions given X 1. Signatures: Dispatcher [employer] EDND Harjit Talbert jb1 Brenda Maynard Lee RN RN la1 Narciso Gil, JAMAL EYELET MAKER pm1 Dada Florez RN RN jb4 Sunny Adam Jorge Alberto Campuzano, OG RN bp Rio Cameron MD MD ma2 Clary Lujan mw3 Salvador Maddox RN RN ae4 Corrections: (The following items were deleted from the chart) 06:39 03/16 23:00 Reassessment: Patient appears in no apparent distress at this time. Patient jb4 and/or family updated on plan of care and expected duration. Pain level reassessed. Patient is alert, oriented x 3, equal unlabored respirations, skin warm/dry/pink. 03/17 06:39 00:00 Reassessment: Patient appears in no apparent distress at this time. Patient jb4 and/or family updated on plan of care and expected duration. Pain level reassessed. Patient is alert, oriented x 3, equal unlabored respirations, skin warm/dry/pink. 06:39 03/16 23:15 Reassessment: Transfusion Complete. [facility] 03/17 06:42 03/16 23:15 BP 210 / 100; Pulse 69bpm; Resp 18bpm; Pulse Ox 100% RA; Temp 97.8F jb4 Temporal; Pain 0/10; 03/17 06:44 00:02 No provider procedures requiring assistance completed. [facility] 00:02 intact, bleeding controlled, No redness/swelling at site. Pressure dressing jb4 applied, : 00:02 Discharged to home ambulatory, with family, [facility] 00:02 Condition: stable [facility] 00:02 Discharge instructions given to patient, Instructed on discharge instructions, jb4 follow up and referral plans. medication usage, Demonstrated understanding of instructions, follow-up care, medications, Prescriptions given X 1,
--- NOTE | 2019-03-16 23:44 | EDPHYS ---
Physician Documentation [facility] Name: Hilaria White Age: 48 yrs Sex: Male : 1970 Arrival Date: 03/16/2019 Time: 13:21 Bed 8 Private MD: Kiko Culp ED Physician Rio Cameron HPI: 03/16 15:02 This 48 yrs old Black Male presents to ER via Ambulatory with complaints of Dialysis ma2 Catheter Problem. 15:02 Onset: The symptoms/episode began/occurred gradually, 1 week(s) ago. Associated signs ma2 and symptoms: Pertinent positives: redness in area, Pertinent negatives: fever, swelling, bleeding at site. The patient has not experienced similar symptoms in the past. PD cath is placed 6 months ago, he pulled it accidently 2 weeks ago here to check placement, as the skin is gotten red over the last 2 weeks, with mild serosanguinous fluid, no bleeding no abd pain . Historical: - Allergies: 13:27 Morphine (Vomiting); la1 - Home Meds: 18:19 amlodipine 10 mg tab once daily [Active]; atorvastatin 40 mg Oral tab 1 tab once daily ae4 [Active]; gabapentin 300 mg Oral cap twice a day [Active]; hydrochlorothiazide 12.5 mg Oral tab 1 tab once daily [Active]; metformin 500 mg Oral tr24 1 tab once daily [Active]; valsartan-hydrochlorothiazide 320-12.5 mg Oral tab once daily [Active]; - PMHx: 13:27 Diabetes - NIDDM; High Cholesterol; Hypertension; peritoneal dialysis; la1 18:19 Dialysis; ae4 - Immunization history:: Adult Immunizations up to date. - Social history:: Smoking status: Patient/guardian denies using tobacco, Patient/guardian denies using alcohol, street drugs, The patient lives. - Ebola Screening: : No symptoms or risks identified at this time. - Family history:: not pertinent. ROS: 15:02 Constitutional: Negative for fever, chills, and weight loss. ma2 15:02 All other systems are negative. Exam: 15:02 Constitutional: This is a well developed, well nourished patient who is awake, alert, ma2 and in no acute distress. Head/Face: Normocephalic, atraumatic. Eyes: Pupils equal round and reactive to light, extra-ocular motions intact. Lids and lashes normal. Conjunctiva and sclera are non-icteric and not injected. Cornea within normal limits. Periorbital areas with no swelling, redness, or edema. ENT: Nares patent. No nasal discharge, no septal abnormalities noted. Tympanic membranes are normal and external auditory canals are clear. Oropharynx with no redness, swelling, or masses, exudates, or evidence of obstruction, uvula midline. Mucous membranes moist. Chest/axilla: Normal chest wall appearance and motion. Nontender with no deformity. No lesions are appreciated. Cardiovascular: Regular rate and rhythm with a normal S1 and S2. No gallops, murmurs, or rubs. Normal PMI, no JVD. No pulse deficits. Respiratory: Lungs have equal breath sounds bilaterally, clear to auscultation and percussion. No rales, rhonchi or wheezes noted. No increased work of breathing, no retractions or nasal flaring. Abdomen/GI: PD catheter in left LQ, 1x1 cm skin induration no active bleeding or discharge, otherwise abd is Soft, non-tender, with normal bowel sounds. No distension or tympany. No guarding or rebound. No evidence of tenderness throughout. Back: No spinal tenderness. No costovertebral tenderness. Full range of motion. Skin: Warm, dry with normal turgor. Normal color with no rashes, no lesions, and no evidence of cellulitis. MS/ Extremity: Pulses equal, no cyanosis. Neurovascular intact. Full, normal range of motion. Neuro: Awake and alert, GCS 15, oriented to person, place, time, and situation. Cranial nerves II-XII grossly intact. Motor strength 5/5 in all extremities. Sensory grossly intact. Cerebellar exam normal. Normal gait. Psych: Awake, alert, with orientation to person, place and time. Behavior, mood, and affect are within normal limits. Vital Signs: 13:27 Pulse 73; Resp 16; Temp 97.1; Pulse Ox 97% on R/A; Weight 154.22 kg; Height 6 ft. 1 in. la1 (185.42 cm); 13:28 BP 188 / 96; la1 15:45 BP 204 / 86; Pulse 86; Resp 18; Pulse Ox 100% on R/A; ae4 15:49 BP 204 / 86; Pulse 69; Resp 16; Pulse Ox 100% on R/A; ae4 15:57 BP 175 / 67; Pulse 69; Resp 18; Pulse Ox 100% on R/A; ae4 18:21 BP 184 / 75; Pulse 76; Resp 18; Pulse Ox 95% on R/A; ae4 19:30 BP 205 / 85; Pulse 67; Resp 18; Pulse Ox 100% on R/A; wh 20:30 BP 200 / 69; Pulse 72; Resp 18; Pulse Ox 98% on R/A; wh 21:30 BP 172 / 94; Pulse 66; Resp 18; Pulse Ox 99% on R/A; wh 23:15 BP 210 / 100; Pulse 69; Resp 18; Temp 97.8(O); Pulse Ox 100% on R/A; Pain 0/10; jb4 13:27 Body Mass Index 44.86 (154.22 kg, 185.42 cm) la1 MDM: 14:03 Patient medically screened. ma2 15:02 Differential diagnosis: cellulitis, displaced cath, unlikely peritenontitis. ma2 16:51 Data reviewed: vital signs, nurses notes. Counseling: I had a detailed discussion with ma2 the patient and/or guardian regarding: the historical points, exam findings, and any diagnostic results supporting the discharge/admit diagnosis, the presence of at least one elevated blood pressure reading (>120/80) during this emergency department visit, the need for outpatient follow up. Response to treatment: the patient's symptoms have markedly improved after treatment. ED course: patient has no peritonitis, does have skin cellulitis, and anemia, no active bleeding, this anemia is likely d/t CKD. hb is 5.5 will transfuse 1 unite and he will follow up with his [facility] operations staff officer for further workup. . 03/16 14:57 Order name: Basic Metabolic Panel; Complete Time: 16:41 [facility] 03/16 14:57 Order name: CBC with Diff; Complete Time: 16:41 [facility] 03/16 14:57 Order name: Creatinine for Radiology; Complete Time: 16:41 [facility] 03/16 14:57 Order name: Hepatic Function; Complete Time: 16:41 [facility] 03/16 14:57 Order name: Lipase; Complete Time: 16:41 [facility] 03/16 14:57 Order name: Blood Culture Adult (2) [facility] 03/16 14:57 Order name: IV Saline Lock; Complete Time: 15:42 [facility] 03/16 14:57 Order name: Labs collected and sent; Complete Time: 15:42 [facility] 03/16 14:57 Order name: CT Abd/Pelvis - Without Contrast; Complete Time: 16:41 [facility] 03/16 16:51 Order name: Bb Add On eb 03/16 16:52 Order name: Type And Screen ae4 03/16 16:56 Order name: Packed RBC Leukored [facility] 03/16 17:45 Order name: ABO/RH no charge; Complete Time: 18:53 [facility] 03/16 14:57 Order name: Urine Dipstick-Ancillary (obtain specimen); Complete Time: 15:56 [facility] Administered Medications: 15:47 Drug: Clindamycin 600 mg Route: IVPB; Infused Over: 30 mins; Site: right forearm; ae4 16:39 Follow up: IV Status: Completed infusion ae4 Disposition: 03/16/19 23:42 Discharged to Home. Impression: Cellulitis of abdominal wall, Anemia in chronic kidney disease. - Condition is Stable. - Discharge Instructions: Anemia, Nonspecific, Cellulitis, Adult, [id number]. - Prescriptions for Clindamycin HCl 300 mg Oral Capsule - take 1 capsule by ORAL route every 6 hours for 10 days; 40 capsule. - Medication Reconciliation Form, Thank You Letter, Antibiotic Education, Prescription Opioid Use form. - Follow up: Private Physician; When: Tomorrow; Reason: Continuance of care. - Problem is new. - Symptoms have improved. Signatures: Dispatcher [facility] Damir Larose RN RN la1 Narciso Gil, TOP PRECIPITATOR OPERATOR TOP PRECIPITATOR OPERATOR pm1 Sunny Adam Rio Cameron MD MD ma2 Salvador Maddox RN RN ae4 Corrections: (The following items were deleted from the chart) 03/17 00:02 03/16 23:42 03/16/2019 23:42 Discharged to Home. Impression: Cellulitis of abdominal wh wall; Anemia in chronic kidney disease. Condition is Stable. Discharge Instructions: Anemia, Nonspecific, Cellulitis, Adult, [id number]. Prescriptions for Clindamycin HCl 300 mg Oral Capsule - take 1 capsule by ORAL route every 6 hours for 10 days; 40 capsule. and Forms are Medication Reconciliation Form, Thank You Letter, Antibiotic Education, Prescription Opioid Use. Follow up: Private Physician; When: Tomorrow; Reason: Continuance of care. Problem is new. Symptoms have improved. pm1
[2019-03-17 01:13] VITALS: BP 210/100; TEMP 97.8; O2SAT 100
== END 2019-03-17 00:02 | disposition home or self-care (01) ==
LOC: ER 13:19
PROC: 30233N1 Transfusion of Nonautologous Red Blood Cells into Peripheral Vein, Percutaneous Approach (ICD-10-PCS; principal; 2019-03-17)
DX: I12.0 Hypertensive chronic kidney disease with stage 5 chronic kidney disease or end stage renal disease (principal); D63.1 Anemia in chronic kidney disease; E11.22 Type 2 diabetes mellitus with diabetic chronic kidney disease; N18.6 End stage renal disease; Z99.2 Dependence on renal dialysis; Z88.5 Allergy status to narcotic agent; E78.00 Pure hypercholesterolemia, unspecified
CPT/HCPCS: 36415; 74176; 80048; 80076; 83690; 85025; 86850; 86900; 86901; 87040; 96365; 99285; P9016

== ENCOUNTER 2019-05-02 14:33 | Inpatient (IN) | payer OTHER, SELFPAY ==
[2019-05-02] MEDS ORDERED: FENTANYL CITR 100 MCG/2 ML ONE (15:42)
[2019-05-02 16:17] LABS: Absolute Lymphocytes (CBC) 0.5 K/uL (0.7-4.9); Basophils % 0.5 % (0-1.3); Hematocrit 22.2 % (39.6-49.0); Lymphocytes % 4.5 % (15.3-44.8); MPV 8.7 fL (7.6-11.3); RBC Red Blood Cell Count 2.68 M/uL (4.33-5.43)
[2019-05-02 16:19] LABS: Protime INR 1.31
[2019-05-02 16:46] LABS: Albumin 2.9 g/dL (3.4-5.0); Bilirubin Direct 0.1 mg/dL (0-0.2); Bilirubin Total 0.2 mg/dL (0.2-1.0); Potassium 3.9 mmol/L (3.5-5.1); Protein, Total 7.2 g/dL (6.4-8.2)
--- NOTE | 2019-05-02 17:59 | RAD REPORT ---
EXAM DESCRIPTION: CT - Abdomen Pelvis Wo Contrast - 05/02/2019 5:45 pm CLINICAL HISTORY: Abdominal pain COMPARISON: February 2019 TECHNIQUE: Computed axial tomography of the abdomen and pelvis was obtained. Oral contrast given. IV contrast not requested All CT scans are performed using dose optimization technique as appropriate and may include automated exposure control or mA/KV adjustment according to patient size. FINDINGS: The evaluation of solid organs, and vessels is limited secondary to the lack of contrast administration. Marked skin thickening surrounds the peritoneal dialysis catheter within the left anterior subcutaneo us fat of the pelvis. Ill-defined fluid is present within the subcutaneous tissues measuring approxim ately 7 x 3 centimeters. The tip of the catheter lies within the pelvis. No pelvic abscess noted. The liver, spleen, pancreas, adrenals and kidneys appear grossly normal. The appendix is normal. There is no evidence of diverticulitis. Small inguinal hernias contain fat Small pericardial effusion IMPRESSION: Ill-defined 7 x 3 centimeter area of fluid within the left anterior subcutaneous fat of the pelvis lateral to the peritoneal dialysis catheter likely indicating a cellulitis. A discrete dov inable fluid collection however is not seen. There is also marked skin thickening. .
[2019-05-02] MEDS ORDERED: HYDROMORPHONE HCL 1 MG/ML INJ ONE (18:31)
[2019-05-02] MEDS ORDERED: VANCOMYCIN/NS 1 gm 1 GM/250 ML BAG IV ONE (19:00)
[2019-05-02] MEDS ORDERED: CEFEPIME/SWI 2gm 2 GM/20 ML SYR IVP ONE (19:00)
[2019-05-02] MEDS ORDERED: ONDANSETRON 4 MG/2 ML VIAL ONE (19:03)
[2019-05-02] MEDS ORDERED: FUROSEMIDE 20 MG/ 2ML VIAL ONE (19:38)
[2019-05-02] MEDS ORDERED: FUROSEMIDE 40 MG/4 ML VIAL ONE (19:38)
[2019-05-02] MEDS ORDERED: HYDRALAZINE HCL 20 MG/ML VIAL ONE (19:38)
--- NOTE | 2019-05-02 19:41 | ER ---
Nurse's Notes [facility] Name: Hilaria White Age: 48 yrs Sex: Male : 1970 Arrival Date: 05/02/2019 Time: 14:35 Bed 19 Private MD: Unknown, Unknown Diagnosis: Cellulitis of abdominal wall;Cutaneous abscess of abdominal wall Presentation: 05/02 14:37 Presenting complaint: Patient states: left nephrostomy started having pain 3 days ago sv and today started having drainage and swelling to that area. Nephrostomy was placed October 2018 in [facility]. Transition of care: patient was not received from another setting of care. Onset of symptoms was May 02, 2019. Risk Assessment: Do you want to hurt yourself or someone else? Patient reports no desire to harm self or others. Initial Sepsis Screen: Does the patient meet any 2 criteria? RR > 20 per min. No. Patient's initial sepsis screen is negative. Does the patient have a suspected source of infection? Yes: Catheter related infection (King/dialysis/PICC/central line). Care prior to arrival: None. 14:37 Method Of Arrival: Ambulatory sv 14:37 Acuity: YESENIA 2 sv Triage Assessment: 14:37 General: Appears in no apparent distress. uncomfortable, Behavior is calm, cooperative, sv appropriate for age. Pain: Complains of pain in left lower quadrant. Neuro: Level of Consciousness is awake, alert, obeys commands, Oriented to person, place, time, situation, Gait is steady. Respiratory: Respiratory effort is even, unlabored, Respiratory pattern is regular, symmetrical. : left nephrostomy tube with drainage noted on the gauze. Historical: - Allergies: 14:47 Morphine (Vomiting); sv - Home Meds: 18:15 Isosorbide Dinitrate Oral [Active]; carvedilol oral oral [Active]; Hydralazine Oral jl7 [Active]; Furosemide Oral [Active]; nifedipine Oral [Active]; - PMHx: 14:47 Diabetes - NIDDM; Dialysis; High Cholesterol; Hypertension; PERITONEAL DIALYSIS; stage sv 5 CKD; - PSHx: 14:47 left nephrostomy; sv - Immunization history:: Adult Immunizations unknown. - Social history:: Smoking status: unknown. - Ebola Screening: : No symptoms or risks identified at this time. Screenin:07 Abuse screen: Denies threats or abuse. Denies injuries from another. Nutritional jl7 screening: No deficits noted. Tuberculosis screening: No symptoms or risk factors identified. Fall Risk IV access (20 points). Total Leon Fall Scale indicates No Risk (0-24 pts). Assessment: 14:45 General: Appears in no apparent distress. uncomfortable, Behavior is calm, cooperative, jl7 appropriate for age. Pain: Complains of pain in left lower quadrant Pain currently is 10 out of 10 on a pain scale. Neuro: Level of Consciousness is awake, alert, obeys commands, Oriented to person, place, time, situation. Cardiovascular: Patient's skin is warm and dry. Respiratory: Airway is patent Respiratory effort is even, unlabored, Respiratory pattern is regular, symmetrical. GI: Abdomen is obese, Peritoneal dialysis catheter capped. Site is reddened. area to left of catheter feels hot to touch and appears to have pus. Derm: Skin is pink, warm \T\ dry. 15:50 Reassessment: Patient appears in no apparent distress at this time. No changes from jl7 previously documented assessment. Patient and/or family updated on plan of care and expected duration. Pain level reassessed. Patient is alert, oriented x 3, equal unlabored respirations, skin warm/dry/pink. 17:00 Reassessment: Right AC IV infiltrated, IV dc'd at this time. jl7 17:51 Reassessment: pt returned from CT. jl7 18:35 Reassessment: Pt reports increased pain, rated 10/10, ERP notified, see MAR for orders. jl7 19:05 Reassessment: Pt c/o nausea, ERP notified, see MAR for orders. jl7 19:15 Reassessment: Patient appears in no apparent distress at this time. Patient and/or cc3 family updated on plan of care and expected duration. Pain level reassessed. Patient is alert, oriented x 3, equal unlabored respirations, skin warm/dry/pink. Received this male patient from morning shift OG Edmondson as a case of nephrostomy incision problem, with IV cannula gauge 20 at the left ACV saline locked. Patient denies pain at this time. Patient states feeling better. Patient states symptoms have improved. General: Appears in no apparent distress. comfortable, Behavior is calm, cooperative, appropriate for age. Pain: Denies pain. Neuro: Level of Consciousness is awake, alert, obeys commands, Oriented to person, place, time, situation, Appropriate for age. Cardiovascular: Denies chest pain, Heart tones S1 S2 present Capillary refill < 3 seconds in bilateral fingers Patient's skin is warm and dry. Respiratory: Airway is patent Respiratory effort is even, unlabored, Respiratory pattern is regular, symmetrical, Breath sounds are clear bilaterally. GI: Abdomen is round obese, Peritoneal dialysis catheter capped. Site is reddened. Bowel sounds present X 4 quads. Abd is soft and non tender X 4 quads. : No signs and/or symptoms were reported regarding the genitourinary system. EENT: No signs and/or symptoms were reported regarding the EENT system. Derm: Skin is intact, is healthy with good turgor, Skin is normal, black. Musculoskeletal: Circulation, motion, and sensation intact. Range of motion: intact in all extremities. 20:18 Reassessment: Patient appears in no apparent distress at this time. Patient and/or cc3 family updated on plan of care and expected duration. Pain level reassessed. Patient is alert, oriented x 3, equal unlabored respirations, skin warm/dry/pink. Patient denies pain at this time. Patient states feeling better. Patient states symptoms have improved. 21:10 Reassessment: Patient appears in no apparent distress at this time. Patient and/or cc3 family updated on plan of care and expected duration. Pain level reassessed. Patient is alert, oriented x 3, equal unlabored respirations, skin warm/dry/pink. Patient for admission, room available at 207, report called and handed over to OG Song for continuity of care and management. Patient denies pain at this time. Patient states feeling better. Patient states symptoms have improved. 21:45 Reassessment: Patient appears in no apparent distress at this time. Patient and/or cc3 family updated on plan of care and expected duration. Pain level reassessed. Patient is alert, oriented x 3, equal unlabored respirations, skin warm/dry/pink. Patient left ER for admission vitally stable by wheelchair escorted by maintenance department technician Rob. No valuables left in the patient's room. Patient denies pain at this time. Patient states feeling better. Patient states symptoms have improved. Vital Signs: 14:47 BP 216 / 126; Pulse 77; Resp 22; Temp 98; Pulse Ox 100% ; Weight 154.22 kg; Height 6 sv ft. 1 in. (185.42 cm); Pain 10/10; 17:24 BP 151 / 114; Pulse 75; Resp 18; Temp 98.3(O); Pulse Ox 100% on R/A; mh5 17:50 BP 187 / 92; Pulse 78; Resp 18; Pulse Ox 100% on R/A; kj1 18:43 BP 203 / 97; Pulse 73; Resp 18; Temp 98.9(O); Pulse Ox 100% ; mh5 19:20 BP 182 / 90; Pulse 74; Resp 20 S; Temp 98.7(O); Pulse Ox 100% on R/A; Pain 0/10; cc3 19:56 BP 177 / 89; Pulse 71; Resp 20 S; Pulse Ox 100% on R/A; cc3 20:00 BP 182 / 86; Pulse 72; Resp 20 S; Pulse Ox 100% on R/A; cc3 20:15 BP 154 / 79; Pulse 72; Resp 19 S; Pulse Ox 100% on R/A; cc3 20:30 BP 161 / 78; Pulse 69; Resp 20 S; Pulse Ox 100% on R/A; cc3 21:07 BP 166 / 90; Pulse 77; Resp 20 S; Pulse Ox 100% on R/A; cc3 21:30 BP 168 / 89; Pulse 75; Resp 20 S; Pulse Ox 100% on R/A; Pain 0/10; cc3 14:47 Body Mass Index 44.86 (154.22 kg, 185.42 cm) sv ED Course: 14:35 Patient arrived in ED. as 14:35 Unknown, Unknown is Private Physician. as 14:38 Debo Walls, OG is Primary Nurse. jl7 14:46 Triage completed. sv 14:47 Arm band placed on. sv 15:15 Cornel Snyder PA is PHCP. cp 15:15 Trey Mcconnell MD is Attending Physician. cp 15:45 Inserted saline lock: 22 gauge in right antecubital area, using aseptic technique. 5 Blood collected. 16:00 Lab(s) recollected, by me, sent to lab. First set of blood cultures drawn Second set of mh5 blood cultures drawn by me. 16:06 Patient has correct armband on for positive identification. Placed in gown. Bed in low mh5 position. Call light in reach. Side rails up X 1. Warm blanket given. Pulse ox on. NIBP on. 17:20 Missed attempt(s): 22 gauge in left hand. Bleeding controlled, band aid applied, sv catheter tip intact. 17:25 T\T\S collected, blood band applied to patient. Inserted saline lock: 20 gauge in left sv antecubital area, using aseptic technique. Blood collected. Flushed left antecubital with 5 ml normal saline. 17:44 CT completed. Patient moved to CT. Patient moved back from CT. nj 17:45 Abdomen In Process Unspecified. EDMS 18:37 initiated a transfer with Olimpia at the [facility]. eb 19:08 Primary Nurse role handed off by Debo Walls RN jl7 19:28 Radha Lucero is Primary Nurse. cc3 19:39 Rio Ruiz MD is Hospitalizing Provider. cp 21:45 No provider procedures requiring assistance completed. Patient admitted, IV remains in cc3 place. Administered Medications: 15:55 Drug: fentaNYL (PF) 25 mcg Route: IVP; Site: right antecubital; jl7 16:25 Follow up: Response: No adverse reaction; Pain is unchanged, physician notified jl7 16:50 Drug: fentaNYL (PF) 25 mcg Route: IVP; Site: right antecubital; jl7 17:15 Follow up: Response: No adverse reaction; Pain is decreased jl7 18:35 Drug: Dilaudid 1 mg Route: IVP; Site: left antecubital; jl7 18:40 Follow up: Response: No adverse reaction; Pain is decreased jl7 19:06 Drug: Zofran 4 mg Route: IVP; Site: left antecubital; jl7 19:20 Follow up: Response: No adverse reaction; Nausea is decreased cc3 19:15 Drug: Cefepime 2 grams Route: IVPB; Rate: 200 ml/hr; Infused Over: 30 mins; Site: left cc3 antecubital; 19:35 Follow up: Response: No adverse reaction; IV Status: Completed infusion; IV Intake: [id number] 19:29 Drug: vancoMYCIN 1 grams Route: IVPB; Infused Over: 2 hrs; Site: left antecubital; cc3 20:00 Follow up: Response: No adverse reaction; IV Status: Infusion continued upon admission cc3 19:40 Not Given (Physician Discretion): hydrALAZINE 10 mg IV at calculated rate once cp 19:45 Drug: Lasix 60 mg Route: IVP; Site: left antecubital; cc3 20:15 Follow up: Response: No adverse reaction; Blood pressure is lowered cc3 19:50 Drug: hydrALAZINE 10 mg Route: IV; Rate: calculated rate; Site: left antecubital; cc3 20:15 Follow up: Response: No adverse reaction; Blood pressure is lowered; IV Status: cc3 Completed infusion Intake: 19:35 IV: 20ml; Total: 20ml. cc3 Outcome: 19:40 Decision to Hospitalize by Provider. cp 21:45 Admitted to Med/surg accompanied by tech, via wheelchair, room 207, with chart, Report cc3 called to OG Song 21:45 Condition: stable 21:45 Instructed on the need for admit, Demonstrated understanding of instructions. 21:52 Patient left the ED. cc3 Signatures: Dispatcher [employer] EDMS Carisa Rojas RN RN sv Martinez, Amelia as Page, Corey, PA PA cp Jordan, Nathan nj Martinez, Maria [facility] Debo Walls RN RN jl7 Marissa Willard Charlene cc3 Montse Telles kj1 Corrections: (The following items were deleted from the chart) 17:55 17:24 BP 151 / 114; Pulse 75bpm; Resp 18bpm; Pulse Ox 100% RA; kj1 mh5 23:28 19:20 BP 182 / 90; Pulse 74bpm; Resp 20bpm; Spontaneous; Pulse Ox 100% RA; Temp 98.7F cc3 Oral; cc3
--- NOTE | 2019-05-02 19:41 | EDPHYS ---
Physician Documentation [facility] Name: Undrarayna White Age: 48 yrs Sex: Male : 1970 Arrival Date: 05/02/2019 Time: 14:35 Bed 19 Private MD: Unknown, Unknown ED Physician Trey Mcconnell HPI: 05/02 15:40 This 48 yrs old Black Male presents to ER via Ambulatory with complaints of Incision cp Problem. 15:40 The patient presents with abdominal pain in the left lower quadrant. cp 15:40 Onset: The symptoms/episode began/occurred 3 day(s) ago. The symptoms radiate to the cp left flank. Associated signs and symptoms: Pertinent negatives: constipation, diarrhea, fever, testicular pain, vomiting. The symptoms are described as constant. Modifying factors: the symptoms are aggravated by movement, pressure. Severity of pain: in the emergency department the pain is a 10 / 10. 15:40 Patient reports having peritoneal catheter for dialysis placed at [facility] in October 2018.cp Historical: - Allergies: 14:47 Morphine (Vomiting); sv - Home Meds: 18:15 Isosorbide Dinitrate Oral [Active]; carvedilol oral oral [Active]; Hydralazine Oral jl7 [Active]; Furosemide Oral [Active]; nifedipine Oral [Active]; - PMHx: 14:47 Diabetes - NIDDM; Dialysis; High Cholesterol; Hypertension; PERITONEAL DIALYSIS; stage sv 5 CKD; - PSHx: 14:47 left nephrostomy; sv - Immunization history:: Adult Immunizations unknown. - Social history:: Smoking status: unknown. - Ebola Screening: : No symptoms or risks identified at this time. ROS: 15:45 Constitutional: Negative for body aches, chills, fever, poor PO intake. cp 15:45 Eyes: Negative for injury, pain, redness, and discharge. cp 15:45 Cardiovascular: Negative for chest pain, palpitations. cp 15:45 Respiratory: Negative for cough, shortness of breath, wheezing. 15:45 Abdomen/GI: Positive for abdominal pain, Negative for vomiting, diarrhea, constipation, anorexia, black/tarry stool, rectal bleeding. 15:45 Back: Negative for pain at rest, pain with movement, radiated pain. 15:45 : Negative for testicular pain 15:45 Neuro: Negative for altered mental status, headache, weakness. 15:45 All other systems are negative. Exam: 15:50 Constitutional: The patient appears in no acute distress, alert, awake, cp non-diaphoretic, non-toxic, well developed, well nourished, obese. 15:50 Head/Face: Normocephalic, atraumatic. cp 15:50 Eyes: Periorbital structures: appear normal, Conjunctiva: normal, no exudate, no injection, Sclera: no appreciated abnormality, Lids and lashes: appear normal, bilaterally. 15:50 ENT: External ear(s): are unremarkable, Nose: is normal, Mouth: is normal, Posterior pharynx: is normal, airway is patent, no erythema, no exudate. 15:50 Neck: ROM/movement: is normal, is supple, without pain, no range of motions limitations, no nuchal rigidity. 15:50 Chest/axilla: Inspection: normal, Palpation: is normal, no crepitus, no tenderness. 15:50 Cardiovascular: Rate: normal, Rhythm: regular, Edema: ankle edema, that is moderate, JVD: is not appreciated. 15:50 Respiratory: the patient does not display signs of respiratory distress, Respirations: normal, no use of accessory muscles, no retractions, no splinting, no tachypnea, Breath sounds: are clear throughout, no decreased breath sounds, no stridor, no wheezing. 15:50 Abdomen/GI: Inspection: obese noted peritoneal catheter to left lower abdomen, Bowel sounds: active, all quadrants, Palpation: soft, in all quadrants, severe abdominal tenderness, in the left lower quadrant, voluntary guarding, is elicited in the left lower quadrant. 15:50 Back: pain, is absent, ROM is normal. 15:50 Skin: abscess, that is moderate sized, of the left lower quadrant, cellulitis, that is moderate, irregular, on the left lower quadrant, induration, that is moderate is noted, located on the left lower quadrant. 15:50 Neuro: Orientation: to person, place \T\ time. Mentation: is normal, Cerebellar function: is grossly normal, Motor: moves all fours, strength is normal, Sensation: is normal. Vital Signs: 14:47 BP 216 / 126; Pulse 77; Resp 22; Temp 98; Pulse Ox 100% ; Weight 154.22 kg; Height 6 sv ft. 1 in. (185.42 cm); Pain 10/10; 17:24 BP 151 / 114; Pulse 75; Resp 18; Temp 98.3(O); Pulse Ox 100% on R/A; mh5 17:50 BP 187 / 92; Pulse 78; Resp 18; Pulse Ox 100% on R/A; kj1 18:43 BP 203 / 97; Pulse 73; Resp 18; Temp 98.9(O); Pulse Ox 100% ; mh5 19:20 BP 182 / 90; Pulse 74; Resp 20 S; Temp 98.7(O); Pulse Ox 100% on R/A; Pain 0/10; cc3 19:56 BP 177 / 89; Pulse 71; Resp 20 S; Pulse Ox 100% on R/A; cc3 20:00 BP 182 / 86; Pulse 72; Resp 20 S; Pulse Ox 100% on R/A; cc3 20:15 BP 154 / 79; Pulse 72; Resp 19 S; Pulse Ox 100% on R/A; cc3 20:30 BP 161 / 78; Pulse 69; Resp 20 S; Pulse Ox 100% on R/A; cc3 21:07 BP 166 / 90; Pulse 77; Resp 20 S; Pulse Ox 100% on R/A; cc3 21:30 BP 168 / 89; Pulse 75; Resp 20 S; Pulse Ox 100% on R/A; Pain 0/10; cc3 14:47 Body Mass Index 44.86 (154.22 kg, 185.42 cm) sv MDM: 15:29 Patient medically screened. cp 16:00 Differential diagnosis: abscess, cellulitis, infected foreign body, sepsis. cp 19:05 Data reviewed: vital signs, nurses notes, lab test result(s), radiologic studies, CT cp scan, I have discussed the patient's presentation/case with the attending Emergency Department Physician;. 19:05 Response to treatment: the patient's symptoms have mildly improved after treatment. cp 19:12 Physician consultation: John Maynard MD was called at 19:05, was contacted at 19:05, regarding consult, patient's condition, will see patient for I\T\D of abscess if patient is admitted to hospital. 05/02 15:29 Order name: Basic Metabolic Panel; Complete Time: 16:55 cp 05/02 16:56 Interpretation: Normal except: CL 110; BUN 86; CRE 12.80; GFR 5. cp 05/02 15:29 Order name: CBC with Diff; Complete Time: 16:34 cp 05/02 16:34 Interpretation: Normal except: WBC 11.9; RBC 2.68; HGB 7.3; HCT 22.2; RICARDO% 84.2; LYM% cp 4.5; NEUT A 10.0; LYMA 0.5. 05/02 15:29 Order name: Creatinine for Radiology; Complete Time: 16:55 cp 05/02 15:29 Order name: Hepatic Function; Complete Time: 16:55 cp 05/02 16:56 Interpretation: Normal except: AST 7; ALB 2.9; GLOB 4.3; A/G 0.7. 05/02 15:29 Order name: Lipase; Complete Time: 16:55 cp 05/02 15:29 Order name: PT-INR; Complete Time: 16:34 cp 05/02 15:29 Order name: Ptt, Activated; Complete Time: 16:34 05/02 15:29 Order name: Blood Culture Adult (2) 05/02 15:29 Order name: Wound Culture 05/02 16:43 Order name: Type And Screen 05/02 20:45 Order name: CBC with Automated Diff EDMS 05/02 20:45 Order name: CBC with Automated Diff EDMS 05/02 20:45 Order name: Comprehensive Metabolic Panel EDMS 05/02 20:45 Order name: Comprehensive Metabolic Panel EDMS 05/02 16:13 Order name: Abdomen ; Complete Time: 18:19 EDMS 05/02 19:42 Order name: Diet Renal; Complete Time: 19:43 cp 05/02 20:45 Order name: Magnesium EDMS 05/02 20:45 Order name: Magnesium EDMS 05/02 20:45 Order name: Phosphorus EDMS 05/02 20:45 Order name: Phosphorus EDMS 05/02 15:29 Order name: IV Saline Lock; Complete Time: 17:08 cp 05/02 15:29 Order name: Labs collected and sent; Complete Time: 17:08 cp 05/02 20:45 Order name: CONS Pharmacy Consult EDMS 05/02 20:45 Order name: CONS Physician Consult EDMS 05/02 20:45 Order name: CONS Physician Consult EDMS 05/02 20:45 Order name: NPO EDMS Administered Medications: 15:55 Drug: fentaNYL (PF) 25 mcg Route: IVP; Site: right antecubital; jl7 16:25 Follow up: Response: No adverse reaction; Pain is unchanged, physician notified jl7 16:50 Drug: fentaNYL (PF) 25 mcg Route: IVP; Site: right antecubital; jl7 17:15 Follow up: Response: No adverse reaction; Pain is decreased jl7 18:35 Drug: Dilaudid 1 mg Route: IVP; Site: left antecubital; jl7 18:40 Follow up: Response: No adverse reaction; Pain is decreased jl7 19:06 Drug: Zofran 4 mg Route: IVP; Site: left antecubital; jl7 19:20 Follow up: Response: No adverse reaction; Nausea is decreased cc3 19:15 Drug: Cefepime 2 grams Route: IVPB; Rate: 200 ml/hr; Infused Over: 30 mins; Site: left cc3 antecubital; 19:35 Follow up: Response: No adverse reaction; IV Status: Completed infusion; IV Intake: [id number] 19:29 Drug: vancoMYCIN 1 grams Route: IVPB; Infused Over: 2 hrs; Site: left antecubital; cc3 20:00 Follow up: Response: No adverse reaction; IV Status: Infusion continued upon admission cc3 19:40 Not Given (Physician Discretion): hydrALAZINE 10 mg IV at calculated rate once cp 19:45 Drug: Lasix 60 mg Route: IVP; Site: left antecubital; cc3 20:15 Follow up: Response: No adverse reaction; Blood pressure is lowered cc3 19:50 Drug: hydrALAZINE 10 mg Route: IV; Rate: calculated rate; Site: left antecubital; cc3 20:15 Follow up: Response: No adverse reaction; Blood pressure is lowered; IV Status: cc3 Completed infusion Disposition: 05/03 07:18 Co-signature as Attending Physician, Trey Mcconnell MD I agree with the assessment and kdr plan of care. Disposition: 05/02/19 19:40 Hospitalization ordered by [place] Ruiz for Inpatient Admission. Preliminary diagnosis are Cellulitis of abdominal wall, Cutaneous abscess of abdominal wall. - Bed requested for Telemetry/MedSurg (Inpatient). - Status is Inpatient Admission. cc3 - Condition is Stable. - Problem is new. - Symptoms have improved. UTI on Admission? No Signatures: Dispatcher [employer] EDNJ Carisa Rojas RN OG Fariba Bhakta RN RN Trey Mcconnell MD MD [facility] Cornel Snyder PA PA cp Debo Walls RN RN jl7 EduinZaki de souzae cc3 Corrections: (The following items were deleted from the chart) 05/02 16:12 15:32 Abdomen Pelvis W Con+CT.RAD.BRZ ordered. EDMS EDMS 16:34 16:34 Normal except: WBC 11.9; RBC 2.68; HGB 7.3; HCT 22.2; RICARDO% 84.2; LYM% 4.5; NEUT A cp 10.0. cp 20:47 19:40 Hospitalization Ordered by Rio Ruiz MD for Inpatient Admission. Preliminary diagnosis is Cellulitis of abdominal wall; Cutaneous abscess of abdominal wall. Bed requested for Telemetry/MedSurg (Inpatient). Status is Inpatient Admission. Condition is Stable. Problem is new. Symptoms have improved. UTI on Admission? No. cp 20:49 20:47 05/02/2019 19:40 Hospitalization Ordered by Rio Ruiz MD for Inpatient mw Admission. Preliminary diagnosis is Cellulitis of abdominal wall; Cutaneous abscess of abdominal wall. Bed requested for Telemetry/MedSurg (Inpatient). Status is Inpatient Admission. Condition is Stable. Problem is new. Symptoms have improved. UTI on Admission? No. mw 21:52 20:49 05/02/2019 19:40 Hospitalization Ordered by Rio Ruiz MD for Inpatient cc3 Admission. Preliminary diagnosis is Cellulitis of abdominal wall; Cutaneous abscess of abdominal wall. Bed requested for Telemetry/MedSurg (Inpatient). Status is Inpatient Admission. Condition is Stable. Problem is new. Symptoms have improved. UTI on Admission? No. mw
[2019-05-02] MEDS ORDERED: HYDROMORPHONE HCL 1 MG/ML INJ IV PRN (20:39)
[2019-05-02] MEDS ORDERED: EPOETIN ALFA 20,000 UNIT/1 ML VIAL SQ SCH (21:00)
[2019-05-02 22:14] VITALS: BMI 40.6
[2019-05-02] MEDS: HEPARIN 5000 UNIT/ML 1 ML VIAL SQ SCH (23:25)
[2019-05-02] MEDS ORDERED: VANCOMYCIN/NS 1 gm 1 GM/250 ML BAG IVPB ONE (23:31)
[2019-05-02] MEDS ORDERED: cloNIDine HCL 0.1 MG TAB PO ONE (23:47)
[2019-05-03] MEDS ORDERED: VANCOMYCIN 1 GM/VIAL ONE (00:42)
[2019-05-03] MEDS ORDERED: NA CHLORIDE 0.9% 250 ML ONE ×2 (00:46→09:18)
[2019-05-03] MEDS ORDERED: EPOETIN ALFA-EPBX 10,000 UNIT/ML VIAL ONE (00:53)
[2019-05-03] MEDS: CLINDAMYCIN PHOSPHATE 600 MG in NA CHLORIDE 0.9% 50 ML IV SCH ×3 (01:00→17:17)
[2019-05-03] MEDS ORDERED: CLINDAMYCIN 600MG/D5W 600 MG/50 ML BAG IV ONE (01:51)
[2019-05-03 05:35] LABS: Absolute Lymphocytes (CBC) 0.6 K/uL (0.7-4.9); Basophils % 0.4 % (0-1.3); Hematocrit 18.2 % (39.6-49.0); MPV 8.8 fL (7.6-11.3); RBC Red Blood Cell Count 2.19 M/uL (4.33-5.43)
[2019-05-03 06:01] LABS: Urine Bacteria <20 /HPF (NONE SEEN); Urine Culture Reflex Order NOT NEEDED; Urine RBC <5 /HPF (NONE SEEN)
[2019-05-03 06:28] LABS: Albumin 2.4 g/dL (3.4-5.0); Bilirubin Total 0.2 mg/dL (0.2-1.0); Magnesium 1.7 mg/dL (1.8-2.4); Phosphorus 5.9 mg/dL (2.5-4.9); Potassium 3.9 mmol/L (3.5-5.1); Protein, Total 6.3 g/dL (6.4-8.2); Uric Acid 9.5 mg/dL (3.5-7.2)
[2019-05-03] MEDS ORDERED: FUROSEMIDE 20 MG/ 2ML VIAL IV SCH (07:00)
[2019-05-03] MEDS ORDERED: FUROSEMIDE 40 MG/4 ML VIAL IV PRN (07:51)
[2019-05-03] MEDS: SEVELAMER CARBONATE 800 MG TABLET PO SCH ×3 (08:00→17:19)
[2019-05-03] MEDS: CALCITROL 0.25 MCG CAP PO SCH (08:21)
[2019-05-03] MEDS: VITAMIN D 5,000 UNIT CAP PO SCH (08:21)
[2019-05-03] MEDS: HYDROMORPHONE HCL 0.5 MG/0.5 ML INJ IV PRN (08:22)
--- NOTE | 2019-05-03 08:25 | P.HP ---
Certification for Inpatient Patient admitted to: Inpatient With expected LOS: >2 Midnights Patient will require the following post-hospital care: None Practitioner: I am a practitioner with admitting privileges, knowledge of patient current condition, hospital course, and medical plan of care. Services: Services provided to patient in accordance with Admission requirements found in Title 42 Section 412.3 of the Code of Federal Regulations Patient History Date of Service: 05/02/19 Reason for admission: abdominal wall abscess History of Present Illness: Patient is a 48-year-old gentleman who comes into the hospital with an abdominal wall abscess. Patient has a history of end-stage renal disease in the lung on hemodialysis. Patient also has hypertension. Patient came to the emergency room for further evaluation. In the ER patient is had a small incision of pain and some purulent drainage was released. They spoke to General surgery and patient was admitted to the hospital. Patient is also on peritoneal dialysis who will consult Nephrology. Patient will be admitted to the hospital for further evaluation. Will also get his blood pressure under control while he is here. Recheck labs in the morning as well. Allergies morphine Allergy (Mild, Verified 12/03/11 11:32) Hives/Rash Home Medications: Amlodipine Besylate [Norvasc] 10 mg PO DAILY 08/15/16 cloNIDine HCl [Catapres*] 0.1 mg PO TID 08/15/16 Amlodipine [Norvasc*] 10 mg PO DAILY #30 tab 08/17/16 Atorvastatin Calcium [Lipitor] 10 mg PO BEDTIME #30 tab 08/17/16 Clopidogrel Bisulfate [Plavix] 75 mg PO DAILY #30 tablet 08/17/16 Gemfibrozil [Lopid*] 600 mg PO BID #60 tab 08/17/16 Glimepiride 5 mg PO BID #60 tablet 08/17/16 Metformin HCl [Metformin ER Osmotic] 1,000 mg PO DAILY #30 tab.er.24 08/17/16 Metoprolol Tartrate [Lopressor*] 100 mg PO BID #60 tab 08/17/16 Valsartan/Hydrochlorothiazide [Diovan Hct 320-12.5 mg Tab] 1 each PO DAILY #30 tablet 08/17/16 cloNIDine HCl [Catapres*] 0.1 mg PO TID #90 tab 08/17/16 - Past Medical/Surgical History Has patient received pneumonia vaccine in the past: No Diabetic: Yes -: HTN -: DM-NIDDM -: HLD -: I&D head abscess -: bilat knee repair - Family History Mother Medical History: Hypertension Brother Medical History: Diabetes - Social History Smoking Status: Never smoker Alcohol use: No CD- Drugs: No Caffeine use: Yes Place of Residence: Home Review of Systems 10-point ROS is otherwise unremarkable Physical Examination - Vital Signs Temperature: 98.3 F Blood Pressure: 159/79 Pulse: 71 Respirations: 17 Pulse Ox (%): 97 - Physical Exam General: Alert, In no apparent distress, Oriented x3 HEENT: Atraumatic, PERRLA, Mucous membr. moist/pink, EOMI, Sclerae nonicteric Neck: Supple, 2+ carotid pulse no bruit, No LAD, Without JVD or thyroid abnormality Respiratory: Clear to auscultation bilaterally, Normal air movement Cardiovascular: Regular rate/rhythm, Normal S1 S2, No murmurs Gastrointestinal: Normal bowel sounds, Soft and benign, Non-distended, No tenderness Musculoskeletal: No tenderness Integumentary: Tenderness/swelling ( Around the abdominal wall), Erythema, Other (Wound drainage as well) Neurological: Normal gait, Normal speech, Normal strength at 5/5 x4 extr, Normal tone, Sensation intact, Cranial nerves 3-12 intact, Normal affect Lymphatics: No axilla or inguinal lymphadenopathy - Studies Laboratory Data (last 24 hrs) 05/02/19 15:45: PT 15.3 H, INR 1.31, APTT 31.0 05/02/19 15:45: Creatinine 13.00 H* 05/02/19 15:45: WBC 11.9 H, Hgb 7.3 L*, Hct 22.2 L, Plt Count 266 05/02/19 15:45: Sodium 141, Potassium 3.9, BUN 86 H, Creatinine 12.80 H*, Glucose 104, Total Bilirubin 0.2, AST 7 L, ALT 15, Alkaline Phosphatase 69, Lipase 44 L Assessment & Plan - Problems (Diagnosis) (1) Abdominal wall abscess Current Visit: Yes Status: Acute (2) Anemia in chronic kidney disease Current Visit: Yes Status: Acute (3) End stage renal disease Current Visit: Yes Status: Acute (4) Peritoneal dialysis status Current Visit: Yes Status: Acute (5) TIA (transient ischemic attack) Onset Date: ~12/27/16 Current Visit: No Status: Acute (6) Diabetes mellitus Onset Date: ~06/21/16 Current Visit: No Status: Chronic (7) Hyperlipidemia Current Visit: No Status: Chronic Qualifiers: - Plan 1. Continue with IV antibiotic 2. Continue with local wound care 3. nephrology consultation/surgical consultation 4. Gentle IV hydration 5. Monitor CBC; hemoglobin decreased and will need blood transfusion; IV lasix as patient makes urine 6. Strict blood sugar monitoring and strict blood pressure control 7. Pain control 8. arrange for peritoneal dialysis with Nephrology 9. GI and DVT prophylaxis Discharge Plan: Home Plan to discharge in: Greater than 2 days - Advance Directives Does patient have a Living Will: No Does patient have a Durable POA for Healthcare: No - Code Status/Comfort Care Code Status Assessed: Yes Code Status: Full Code Critical Care: No Time Spent Managing PTS Care (In Minutes): 45
[2019-05-03] MEDS: NIFEDIPINE XL 60 MG TABLET PO SCH ×3 (09:00→21:13)
[2019-05-03] MEDS: MULTIVITAMINS,THERAPEUT 1 TAB PO SCH (09:00)
[2019-05-03] MEDS: SODIUM BICARB 325 MG TAB PO SCH ×3 (09:00→21:13)
[2019-05-03] MEDS: HEPARIN 5000 UNIT/ML 1 ML VIAL SQ SCH ×2 (09:00→21:12)
[2019-05-03] MEDS ORDERED: NA CHLORIDE 0.9% 500 ML ONE (12:33)
[2019-05-03] MEDS ORDERED: NA CHLORIDE 0.9% 100 ML IV ONE (12:43)
--- NOTE | 2019-05-03 12:43 | P.PN ---
Subjective Date of Service: 05/03/19 Chief Complaint: abdominal wall abscess Subjective: No new changes He has been afebrile. No issues overnight except pain. Physical Examination - Vital Signs Temperature: 98.3 F Blood Pressure: 159/79 Pulse: 71 Respirations: 69 Pulse Ox (%): 100 - Physical Exam General: Alert, In no apparent distress HEENT: Mucous membr. moist/pink, Sclerae nonicteric Neck: Supple, JVD not distended Respiratory: Clear to auscultation bilaterally, Normal air movement Cardiovascular: Normal pulses, Regular rate/rhythm, Normal S1 S2, No murmurs Gastrointestinal: Normal bowel sounds, Soft and benign, Non-distended, Tenderness (In the skin around the peritoneal dialysis catheter) Musculoskeletal: No swelling, No erythema (Abdominal wall abscess around the peritoneal dialysis catheter-left lower abdomen.) Neurological: Normal speech, Normal strength at 5/5 x4 extr - Studies Laboratory Data (last 24 hrs) 05/02/19 15:45: PT 15.3 H, INR 1.31, APTT 31.0 05/02/19 15:45: Creatinine 13.00 H* 05/02/19 15:45: WBC 11.9 H, Hgb 7.3 L*, Hct 22.2 L, Plt Count 266 05/02/19 15:45: Sodium 141, Potassium 3.9, BUN 86 H, Creatinine 12.80 H*, Glucose 104, Total Bilirubin 0.2, AST 7 L, ALT 15, Alkaline Phosphatase 69, Lipase 44 L Assessment And Plan - Current Problems (Diagnosis) (1) Abdominal wall abscess Current Visit: Yes Status: Acute (2) Anemia in chronic kidney disease Current Visit: Yes Status: Acute (3) End stage renal disease Current Visit: Yes Status: Chronic (4) Peritoneal dialysis status Current Visit: Yes Status: Chronic (5) Diabetes mellitus Onset Date: ~06/21/16 Current Visit: No Status: Chronic (6) Obese Onset Date: ~06/21/16 Current Visit: No Status: Chronic Qualifiers: Obesity type: due to excess calories - Plan Patient receiving 1 unit PRBC transfusion. Check posttransfusion hemoglobin. He is also scheduled for I and D and debridement by Dr. Maynard. Continue IV cefepime and vancomycin. Pharmacy to dose antibiotics IV hydromorphone p.r.n. for pain Nephrology consulted for peritoneal dialysis. Blood glucose readings within normal range. Monitor and treat with insulin sliding scale as needed to keep blood glucose readings within target (<200).
[2019-05-03] MEDS ORDERED: LIDOCAINE 2% MPF 5 ML VIAL ONE (13:12)
[2019-05-03] MEDS ORDERED: PROPOFOL 200 MG/20 ML VIAL IV ONE (13:12)
[2019-05-03] MEDS ORDERED: FENTANYL CITR 100 MCG/2 ML ONE (13:12)
[2019-05-03] MEDS ORDERED: MIDAZOLAM HCL 2 MG/2 ML INJ ONE (13:12)
--- NOTE | 2019-05-03 14:43 | P.BOP ---
Preoperative diagnosis: abdominal wall complex abscess. peritoneal dialysis Postoperative diagnosis: same Primary procedure: Incision and drainage of abdominal wall complex abscess [id number] Estimated blood loss: 20cc Specimen: pus and necrotic tissue Anesthesia: General Complications: None Transferred to: Recovery Room Condition: Good
[2019-05-03] MEDS ORDERED: HYDROMORPHONE HCL 1 MG/ML INJ ONE (14:44)
[2019-05-03] MEDS: HYDROMORPHONE HCL 1 MG/ML INJ ONE ×2 (14:44→14:47)
[2019-05-03] MEDS ORDERED: FUROSEMIDE 20 MG/ 2ML VIAL ONE (14:57)
--- NOTE | 2019-05-03 15:40 | CON ---
Date of Consultation: 05/03/2019 Diagnoses: Abdominal wall abscess, history of renal failure, and peritoneal dialysis. History Of Present Illness: This is a case of a 48-year-old patient, who comes with abdominal wall i nduration. He has been having some tenderness over that area. Near that area, there is a peritoneal dialysis catheter that he usually use it every day. Over the last 2 days, he has not use it. Appar ently, he came to the ER, previously made an incision in that area and had some purulent discharge. This catheter is near that area. The incision is not enough to drain this, so surgical consult was o btained for surgical drainage. He denies any trauma. He is doing this dialysis for a long time. Hi s primary doctor is Dr. Clup. Allergies: MORPHINE. Medication: Reviewed including Norvasc, Catapres, metformin, Lopressor. Medical Problems: Diabetes, hypertension. Surgical History: Knee surgery. Family History: Hypertension, diabetes. Social History: He does not smoke. He does not drink alcohol. Review of Systems: Ten points otherwise unremarkable. Physical Examination: General: Patient is awake and alert. HEENT: Pupils are equal and reactive, anicteric. Neck: Supple. Chest: Clear. Heart: S1, S2. Abdomen: Soft and depressible. No peritonitis, but there is a large area of collection of fluid or fluctuance in the left lower quadrant. Very close to the area of the catheter. I am unable to see a t this moment if the catheter is going through that abscess. There is redness associated with it. EXTREMITIES: Good capillary refill. Imaging Data: CAT scan of abdomen and pelvis interpreted by Dr. Zamorano as skin thickening around th e area of the peritoneal dialysis catheter. There is a left anterior abdominal wall abscess about 7 x 3 cm. Small pericardiac effusion, bilateral inguinal hernias. All that discussed with the patient . Laboratory Data: Blood work shows a hemoglobin of 6, hematocrit of 18.2, WBC count of 10.8. Assessment: 48-year-old patient anemic with abdominal wall abscess, it need to be drained. I explai aristides to him benefits, alternatives, and risks of incision and drainage. The patient understands we mi ght have to remove the peritoneal dialysis, which created a question about how he is going to receive dialysis in the future, but if that catheters going through the abscess, then is contaminated and ne eds to be removed. I have talked to the primary doctor the problem represents and the importance of discussing this with a Renal Doctor. Since even though I discussed with the patient, the possibility of having to do hemodialysis, he has not heard anything about hemodialysis in the past and he wants to discuss that with his renal doctor. In the meantime, this abscess is present, is indurated, it is getting better and need to be addressed immediately. The risks including infection, bleeding, damag e to adjacent structures, anesthesia, complication, recurrence, DE, and even . He will require wound care. ASH/MODL Voice ID: [id number] Report ID: [id number]
[2019-05-03 18:46] LABS: Hematocrit 24.7 % (39.6-49.0)
[2019-05-03] MEDS ORDERED: VANCOMYCIN/NS 1 gm 1 GM/250 ML BAG IVPB SCH (20:45)
[2019-05-03] MEDS ORDERED: FUROSEMIDE 40 MG TABLET PO SCH (21:00)
[2019-05-03] MEDS ORDERED: HYDRALAZINE HCL 25 MG TABLET PO SCH (21:00)
[2019-05-03] MEDS ORDERED: HOME MED 1 EA UNK (Hydralazine Hcl [Hydralazine Hcl] 50 MG) PO SCH (21:00)
[2019-05-03] MEDS: carvediloL 12.5 MG TAB PO SCH (21:13)
--- NOTE | 2019-05-03 22:23 | P.CNS ---
Date of Consult: 05/03/19 Reason for Consult: ESRD Requesting Physician: olayinka almanzar Chief Complaint: abdominal wall abscess History of Present Illness: 48 yo BM CKD, HTN, DM presented to the ER with severe, progressive abdominal wall abscess with associated fever. The patient had the PD catheter placed in September 2018. I have been trying to get the patient to start PD since December 2018. Due to poor compliance, the patient has not had good nephrology follow up and has not been able to complete his PD training so that regular PD could be started. In our last conversation, I recommended the patient consider HD due to his inability to get trained on PD. Patient is a 48-year-old gentleman who comes into the hospital with an abdominal wall abscess. Patient has a history of end-stage renal disease in the lung on hemodialysis. Patient also has hypertension. Patient came to the emergency room for further evaluation. In the ER patient is had a small incision of pain and some purulent drainage was released. They spoke to General surgery and patient was admitted to the hospital. Patient is also on peritoneal dialysis who will consult Nephrology. Patient will be admitted to the hospital for further evaluation. Will also get his blood pressure under control while he is here. Recheck labs in the morning as well. 15:40 This 48 yrs old Black Male presents to ER via Ambulatory with complaints of Incision cp Problem. 15:40 The patient presents with abdominal pain in the left lower quadrant. cp 15:40 Onset: The symptoms/episode began/occurred 3 day(s) ago. The symptoms radiate to the cp left flank. Associated signs and symptoms: Pertinent negatives: constipation, diarrhea, fever, testicular pain, vomiting. The symptoms are described as constant. Modifying factors: the symptoms are aggravated by movement, pressure. Severity of pain: in the emergency department the pain is a 10 / 10. 15:40 Patient reports having peritoneal catheter for dialysis placed at [facility] in October 2018.cp Allergies morphine Allergy (Mild, Verified 12/03/11 11:32) Hives/Rash Home medications list reviewed: Yes Home Medications: Carvedilol [Coreg] 12.5 mg PO BID 05/03/19 Furosemide [Lasix*] 80 mg PO BID 05/03/19 Hydralazine HCl 50 mg PO TID 05/03/19 Isosorbide Dinit [Isordil] 20 mg PO DAILY 05/03/19 Nifedipine [Nifedipine ER] 60 mg PO BID 05/03/19 - Past Medical/Surgical History Diabetic: Yes -: HTN -: DM-NIDDM -: HLD -: I&D head abscess -: bilat knee repair - Family History Mother Medical History: Hypertension Brother Medical History: Diabetes - Social History Smoking Status: Unknown if ever smoked Alcohol use: No CD- Drugs: No Caffeine use: Yes Place of Residence: Home Review of Systems 10-point ROS is otherwise unremarkable General: Fever Cardiovascular: Edema Gastrointestinal: Abdominal Pain Physical Examination Temp Pulse Resp BP Pulse Ox 99.0 F 66 20 187/93 H 100 05/03/19 20:00 05/03/19 21:13 05/03/19 20:00 05/03/19 21:13 05/03/19 20:00 General: In no apparent distress, Oriented x3, Cooperative HEENT: Atraumatic Neck: Supple Respiratory: Clear to auscultation bilaterally Cardiovascular: No edema, Regular rate/rhythm, No rubs Gastrointestinal: Soft and benign, Non-distended, No rebound Musculoskeletal: No clubbing, No contractures Integumentary: No rashes, No cyanosis, Skin breakdown, Skin lesion Neurological: Normal speech Urinary: Dialysis catheter Blood work reviewed in the chart. Hgb 6; Cr 12.6 Imagings Data: EXAM DESCRIPTION: CT - Abdomen Pelvis Wo Contrast - 05/02/2019 5:45 pm CLINICAL HISTORY: Abdominal pain COMPARISON: February 2019 TECHNIQUE: Computed axial tomography of the abdomen and pelvis was obtained. Oral contrast given. IV contrast not requested All CT scans are performed using dose optimization technique as appropriate and may include automated exposure control or mA/KV adjustment according to patient size. FINDINGS: The evaluation of solid organs, and vessels is limited secondary to the lack of contrast administration. Marked skin thickening surrounds the peritoneal dialysis catheter within the left anterior subcutaneous fat of the pelvis. Ill-defined fluid is present within the subcutaneous tissues measuring approximately 7 x 3 centimeters. The tip of the catheter lies within the pelvis. No pelvic abscess noted. The liver, spleen, pancreas, adrenals and kidneys appear grossly normal. The appendix is normal. There is no evidence of diverticulitis. Small inguinal hernias contain fat Small pericardial effusion IMPRESSION: Ill-defined 7 x 3 centimeter area of fluid within the left anterior subcutaneous fat of the pelvis lateral to the peritoneal dialysis catheter likely indicating a cellulitis. A discrete drainable fluid collection however is not seen. There is also marked skin thickening. Conclusions/Impression: A/ ESRD. Currently not on dialysis. Acidosis. HTN with CKD/ CHF. LE Edema, controlled. DM II with CKD. Anemia in CKD. MICHELLE/ Secondary HyperPTH. LLQ Abdominal Wall Abscess/ Cellulitis. P/ Continue current POC and Medications. Follow up with Dr. Maynard for debridement. May need to remove the PD catheter. Recommend the patient consider HD due to multiple reasons. Continue abx. Renal dosing. Give Procrit. PRBC transfusion as needed. Start Nifedipine and Imdur. Increase Hydralazine. Start oral bicarb. No NSAIDs. AM labs. Daily weight. Thank you kindly for the consultation. Case reviewed with Dr. Maynard.
[2019-05-03] MEDS: ISOSORBIDE MONO SR 30 MG TAB PO SCH (23:52)
[2019-05-04] MEDS: HYDROMORPHONE HCL 0.5 MG/0.5 ML INJ IV PRN ×3 (00:03→13:48)
--- NOTE | 2019-05-04 02:05 | OP ---
Date of Procedure: 05/03/2019 Surgeon: John Maynard MD Preoperative Diagnoses: Abdominal wall complex abscess, peritoneal dialysis, renal failure, severe a bdominal wall cellulitis. Postoperative Diagnosis: Abdominal wall complex abscess, peritoneal dialysis, renal failure, severe abdominal wall cellulitis. Procedure In Detail: Incision and drainage of abdominal wall complex abscess, 10 x 10 cm x 2 cm with excisional debridement of necrotic tissue subcutaneous. Estimated Blood Loss: Less than 20 mL. Specimen: Pus and necrotic tissue. Findings: Patient has a large complex abscess. The peritoneal dialysis catheter is near by, it is i ncluded in the induration, but not included in the abscess cavity. We could not see the catheter thr ough the abscess at this moment. Complications: None. Packings: Wet-to-dry. Indications: This is the case of a 48-year-old patient with a large abdominal wall abscess, happened to be the near by. The patient also had peritoneal dialysis catheter. The benefits, alternatives, and risks of incision and drainage and possible removal of peritoneal dialysis were fully discussed w ith the patient, which include, but are not limited to infection, bleeding, damage to adjacent struct ures, anesthesia complications, nonhealing wound, HI, and even . He also understands this may n ot relieve any symptoms. He might need more than one surgical intervention. He is very concerned ab out the catheter. He preferred not to have it removed, although we explained to him that if the cath eter is through the cavity and we might have to remove the catheter. If the catheter is just to the area of induration, we cannot guarantee the catheter is not infected and may not have to be removed, but at least peritoneal dialysis he does not know anything about hemodialysis, so we asked the renal doctor to discuss that with him and give us guidance on that if they need our help. Patie nt understands the importance of it even though the catheter is not in the abscess cavity that there is an area of cellulitis near by that may contaminate this catheter and eventually progress into an a bscess that will involve the area of the catheter directly. He understood. I discussed that with e primary doctor the importance of the antibiotics treatment and we requested also Infectious Disease evaluation. Description Of Procedure: The patient was brought to the operating room, placed in supine position. Anesthesia was done without complication. Abdominal area was prepped and draped in a sterile fashio n. The patient has an area of necrotic tissue present. We proceeded to remove all the necrotic area and then we found a cavity underneath. Multiple loculations opened. The catheter is medial to the abscess cavity and the induration about 10 cm past cavity and even past catheter circumferentially, b ut the abscess cavity is about 10 x 10 cm. We removed the necrotic tissue. We cannot see the cathet er from inside the cavity, so we irrigated profusely, obtain hemostasis. This goes all the way down to muscle. The cavity was then irrigated. Area was packed with wet-to-dry dressing. The patient to lerated the procedure well. Patient was sent to the recovery in stable condition. We ove r the weekend. I discussed the case with the primary doctor, the importance of antibiotics since the area that is indurated right now maybe part of the infection and this may develop an abscess as prog ression of his disease. If that is the case, then once again the catheter will be compromised and in deed will have to be removed and then the other alternative the patient does not want at this moment if possible. This patient may even need an LTAC for long-term antibiotics. We discussed that and maes ggest that to the Infectious Disease and he is going to guide us the proper way to go. TOBY Voice ID: [id number] Report ID: [id number]
[2019-05-04 06:20] LABS: Absolute Lymphocytes (CBC) 0.6 K/uL (0.7-4.9); Basophils % 0.7 % (0-1.3); Lymphocytes % 5.5 % (15.3-44.8); MPV 8.6 fL (7.6-11.3); RBC Red Blood Cell Count 2.47 M/uL (4.33-5.43)
[2019-05-04 06:23] LABS: Hematocrit 20.4 % (39.6-49.0)
[2019-05-04 06:29] LABS: Potassium 4.1 mmol/L (3.5-5.1)
[2019-05-04] MEDS: SODIUM BICARB 325 MG TAB PO SCH ×3 (08:54→20:58)
[2019-05-04] MEDS: VITAMIN D 5,000 UNIT CAP PO SCH (08:55)
[2019-05-04] MEDS: MULTIVITAMINS,THERAPEUT 1 TAB PO SCH (08:55)
[2019-05-04] MEDS: CALCITROL 0.25 MCG CAP PO SCH (08:55)
[2019-05-04] MEDS: carvediloL 12.5 MG TAB PO SCH ×2 (08:55→20:59)
[2019-05-04] MEDS: SEVELAMER CARBONATE 800 MG TABLET PO SCH ×3 (08:55→18:15)
[2019-05-04] MEDS: NIFEDIPINE XL 90 MG TABLET PO SCH ×2 (08:55→20:58)
[2019-05-04] MEDS: ISOSORBIDE MONO SR 30 MG TAB PO SCH ×2 (08:56→20:57)
[2019-05-04] MEDS: HYDRALAZINE HCL 25 MG TABLET PO SCH ×3 (08:56→20:58)
[2019-05-04] MEDS: HEPARIN 5000 UNIT/ML 1 ML VIAL SQ SCH ×2 (08:57→20:57)
[2019-05-04] MEDS ORDERED: ISOSORBIDE DINIT 20 MG TAB PO SCH (09:00)
[2019-05-04] MEDS: CLINDAMYCIN PHOSPHATE 600 MG in NA CHLORIDE 0.9% 50 ML IV SCH ×4 (09:38→18:15)
[2019-05-04] MEDS ORDERED: NA CHLORIDE 0.9% 250 ML ONE (09:43)
--- NOTE | 2019-05-04 10:36 | P.PN ---
Subjective Date of Service: 05/04/19 Chief Complaint: abdominal wall abscess Status post excision and debridement of large complex anterior abdominal abscess yesterday. Patient states his pain is much better. He has been afebrile. Physical Examination - Vital Signs Temperature: 97.5 F Blood Pressure: 133/73 Pulse: 63 Respirations: 20 Pulse Ox (%): 98 - Physical Exam General: Alert, In no apparent distress, Oriented x3 HEENT: Mucous membr. moist/pink Neck: Supple, JVD not distended Respiratory: Clear to auscultation bilaterally, Normal air movement Cardiovascular: No edema, Regular rate/rhythm, Normal S1 S2 Capillary refill: <2 Seconds Gastrointestinal: Normal bowel sounds, Soft and benign, Non-distended, Other ( Peritoneal dialysis catheter insitu.) Musculoskeletal: No swelling Integumentary: Other (Dressed anterior abdominal wall surgical incision.) Neurological: Normal speech, Normal strength at 5/5 x4 extr Assessment And Plan - Current Problems (Diagnosis) (1) Abdominal wall abscess Current Visit: Yes Status: Acute (2) Anemia in chronic kidney disease Current Visit: Yes Status: Acute (3) End stage renal disease Current Visit: Yes Status: Chronic (4) Peritoneal dialysis status Current Visit: Yes Status: Chronic (5) Diabetes mellitus Onset Date: ~06/21/16 Current Visit: No Status: Chronic (6) Obese Onset Date: ~06/21/16 Current Visit: No Status: Chronic Qualifiers: Obesity type: due to excess calories (7) Hypertension Onset Date: ~06/21/16 Current Visit: No Status: Acute Qualifiers: Hypertension type: essential hypertension Qualified Code(s): I10 - Essential (primary) hypertension - Plan 1 more unit PRBC transfusion ordered. Status post excision and debridement of large complex anterior abdominal wall abscess. Induration noted around Peritoneal dialysis catheter, dialysis catheter noted not to be in the abscess cavity. Deep tissue wound cultures are pending Continue IV cefepime and vancomycin. IV hydromorphone p.r.n. for pain Peritoneal dialysis per Nephrology. Blood glucose readings within normal range. Monitor and treat with insulin sliding scale as needed to keep blood glucose readings within target (<200). Home BP meds resumed for hypertension.
[2019-05-04 18:01] LABS: Absolute Lymphocytes (CBC) 0.8 K/uL (0.7-4.9); Hematocrit 25.6 % (39.6-49.0); Lymphocytes % 7.9 % (15.3-44.8); MPV 8.2 fL (7.6-11.3); RBC Red Blood Cell Count 3.11 M/uL (4.33-5.43)
[2019-05-04 18:05] LABS: Protime INR 1.19
[2019-05-04 18:23] LABS: Potassium 3.7 mmol/L (3.5-5.1)
[2019-05-04 18:29] LABS: Blood Morphology Comment NOT SEEN (NOT SEEN); Platelet Estimate ADEQ; Platelets, Giant NOTED
[2019-05-05] MEDS: VANCOMYCIN 2 GM in NA CHLORIDE 0.9% 500 ML IVPB SCH (00:05)
[2019-05-05] MEDS: CLINDAMYCIN PHOSPHATE 600 MG in NA CHLORIDE 0.9% 50 ML IV SCH ×3 (02:12→17:24)
[2019-05-05 06:28] LABS: Absolute Lymphocytes (CBC) 0.6 K/uL (0.7-4.9); Basophils % 0.7 % (0-1.3); Hematocrit 22.7 % (39.6-49.0); Lymphocytes % 6.6 % (15.3-44.8); MPV 8.3 fL (7.6-11.3); RBC Red Blood Cell Count 2.71 M/uL (4.33-5.43)
[2019-05-05 06:35] LABS: Potassium 3.9 mmol/L (3.5-5.1)
[2019-05-05 07:21] LABS: Albumin 2.3 g/dL (3.4-5.0); Bilirubin Direct 0.1 mg/dL (0-0.2); Bilirubin Total 0.2 mg/dL (0.2-1.0); Protein, Total 6.2 g/dL (6.4-8.2)
[2019-05-05] MEDS: CALCITROL 0.25 MCG CAP PO SCH (09:10)
[2019-05-05] MEDS: carvediloL 12.5 MG TAB PO SCH ×2 (09:10→20:18)
[2019-05-05] MEDS: HYDRALAZINE HCL 25 MG TABLET PO SCH ×3 (09:10→20:18)
[2019-05-05] MEDS: SODIUM BICARB 325 MG TAB PO SCH ×3 (09:10→20:31)
[2019-05-05] MEDS: MULTIVITAMINS,THERAPEUT 1 TAB PO SCH (09:11)
[2019-05-05] MEDS: SEVELAMER CARBONATE 800 MG TABLET PO SCH ×3 (09:11→17:24)
[2019-05-05] MEDS: ISOSORBIDE MONO SR 30 MG TAB PO SCH ×2 (09:11→20:31)
[2019-05-05] MEDS: HYDROMORPHONE HCL 0.5 MG/0.5 ML INJ IV PRN ×2 (09:11→17:54)
[2019-05-05] MEDS: VITAMIN D 5,000 UNIT CAP PO SCH (09:11)
[2019-05-05] MEDS: HEPARIN 5000 UNIT/ML 1 ML VIAL SQ SCH ×2 (09:11→20:19)
[2019-05-05] MEDS: NIFEDIPINE XL 90 MG TABLET PO SCH ×2 (09:11→20:18)
--- NOTE | 2019-05-05 11:48 | P.PN ---
Subjective Date of Service: 05/05/19 Chief Complaint: abdominal wall abscess Subjective: No new changes Status post excision and debridement of large complex anterior abdominal abscess day 2. Patient states his pain is much better controlled. He has been afebrile. Wound culture is growing MRSA Physical Examination - Vital Signs Temperature: 97.3 F Blood Pressure: 143/63 Pulse: 63 Respirations: 17 Pulse Ox (%): 98 - Physical Exam General: Alert, In no apparent distress, Oriented x3, Obese HEENT: Mucous membr. moist/pink Neck: Supple, JVD not distended Respiratory: Clear to auscultation bilaterally, Normal air movement Cardiovascular: No edema, Normal pulses, Regular rate/rhythm, Normal S1 S2 Gastrointestinal: Normal bowel sounds, Soft and benign, Non-distended, Other ( Dressed left lower abdominal wall surgical incision) Musculoskeletal: No swelling Neurological: Normal speech Assessment And Plan - Current Problems (Diagnosis) (1) Abdominal wall abscess Current Visit: Yes Status: Acute (2) Anemia in chronic kidney disease Current Visit: Yes Status: Acute (3) End stage renal disease Current Visit: Yes Status: Chronic (4) Peritoneal dialysis status Current Visit: Yes Status: Chronic (5) Diabetes mellitus Onset Date: ~06/21/16 Current Visit: No Status: Chronic (6) Obese Onset Date: ~06/21/16 Current Visit: No Status: Chronic Qualifiers: Obesity type: due to excess calories (7) Hypertension Onset Date: ~06/21/16 Current Visit: No Status: Acute Qualifiers: Hypertension type: essential hypertension Qualified Code(s): I10 - Essential (primary) hypertension - Plan Posttransfusion hemoglobin is up to 7.5 Status post excision and debridement of large complex anterior abdominal wall abscess. Dialysis catheter noted not to be in the abscess cavity and preserved for now.. Deep tissue wound cultures growing MRSA Antibiotics changed to IV clindamycin and vancomycin. IV hydromorphone p.r.n. for pain Peritoneal dialysis per Nephrology. Infectious disease consult Blood glucose readings within normal range. Monitor and treat with insulin sliding scale as needed to keep blood glucose readings within target (<200). Continue home BP meds for hypertension.
[2019-05-05] MEDS ORDERED: EPOETIN ALFA-EPBX 10,000 UNIT/ML VIAL SQ SCH (14:00)
[2019-05-06] MEDS: CLINDAMYCIN PHOSPHATE 600 MG in NA CHLORIDE 0.9% 50 ML IV SCH ×3 (00:49→17:40)
--- OUTSIDE RECORDS SUMMARY | 2019-05-06 04:17 | XMS REPORT ---
:1970 [facility] Address [address] [place] [address] [address]. [address] [place] [address] Care Team Providers Name Role Phone Unavailable Unavailable Unavailable Problems This patient has no known problems. Allergies, Adverse Reactions, Alerts This patient has no known allergies or adverse reactions. Medications This patient has no known medications. Encounters Start End Encounter Admission Attending Care Care Encounter Date/Time Date/Time Type Type Clinicians Facility Department ID 2018-10-24 2018-10-24 Emergency E [facility] [id number] 07:02:00 07:02:00 2018-09-24 2018-09-24 Outpatient [facility] [id number] 05:19:00 05:19:00
[2019-05-06] MEDS: HYDROMORPHONE HCL 0.5 MG/0.5 ML INJ IV PRN (05:05)
[2019-05-06 05:43] LABS: Absolute Lymphocytes (CBC) 0.7 K/uL (0.7-4.9); Basophils % 0.8 % (0-1.3); Hematocrit 22.9 % (39.6-49.0); MPV 8.5 fL (7.6-11.3); RBC Red Blood Cell Count 2.77 M/uL (4.33-5.43)
[2019-05-06 06:09] LABS: Ferritin 273.6 ng/mL (26-388); Potassium 3.9 mmol/L (3.5-5.1)
[2019-05-06 07:27] LABS: Blood Morphology Comment NOT SEEN (NOT SEEN); Platelet Estimate ADEQ; Urine White Blood Cell Casts OK
[2019-05-06] MEDS: NIFEDIPINE XL 90 MG TABLET PO SCH ×2 (08:41→22:17)
[2019-05-06] MEDS: MULTIVITAMINS,THERAPEUT 1 TAB PO SCH (08:42)
[2019-05-06] MEDS: HYDRALAZINE HCL 25 MG TABLET PO SCH ×3 (08:42→22:15)
[2019-05-06] MEDS: HEPARIN 5000 UNIT/ML 1 ML VIAL SQ SCH ×2 (08:43→22:14)
[2019-05-06] MEDS: SEVELAMER CARBONATE 800 MG TABLET PO SCH ×3 (08:43→17:40)
[2019-05-06] MEDS: carvediloL 12.5 MG TAB PO SCH ×2 (08:43→22:14)
[2019-05-06] MEDS: VITAMIN D 5,000 UNIT CAP PO SCH (08:43)
[2019-05-06] MEDS: SODIUM BICARB 325 MG TAB PO SCH ×3 (08:50→22:14)
[2019-05-06] MEDS: ISOSORBIDE MONO SR 30 MG TAB PO SCH ×2 (08:50→22:15)
[2019-05-06] MEDS: CALCITROL 0.25 MCG CAP PO SCH (09:00)
--- NOTE | 2019-05-06 18:22 | PN ---
Date of Progress Note: 05/06/2019 Subjective: Patient is seen and examined. Chart reviewed and case discussed with RN. The patient states his pain is controlled with medications. No acute events overnight. Medications: List reviewed. Physical Examination: Vital Signs: Temperature 97.5, heart rate 67, blood pressure 150/80, respirations 20, O2 of 98% on room air. General: Awake, alert, oriented x3, not in any acute distress, ill-appearing male. Morbidly obese. CVS: S1, S2. Regular rate and rhythm. Peripheral pulses present. Respiratory: Moving air well bilaterally. No wheezing or stridor. No use of accessory muscles. Gastrointestinal: Abdomen is soft. Mild tenderness to palpation around the incision site. Extremities: No clubbing or cyanosis. Minimal pedal edema. Neurologic: Nonfocal. Cranial nerves 2 through 12 intact grossly. No focal neurological deficit. Laboratory Data: Sodium 142, potassium 3.9, chloride 110, CO2 of 21, BUN 90, creatinine 13.1, glucose 126, calcium 7.9. Iron 28, TIBC 155, transferrin 111, ferritin 273. WBC 8.1, H and H of 8 and 22.9, platelets 270, neutrophils 75%. Hepatitis panel is pending. Blood cultures, no growth to date. Wound cultures from the left abdomen growing MRSA and second wound culture also growing out MRSA. Assessment And Plan: A 48-year-old male with: 1. Abdominal wall abscess secondary to methicillin-resistant Staphylococcus aureus, status post drainage. Appreciate surgery input. We will continue with IV antibiotics. 2. Anemia secondary to chronic kidney disease. Hemoglobin has been improved after transfusion to 8. We will continue to monitor likely secondary to anemia of chronic disease. Iron panel shows iron deficiency as well. 3. End-stage renal disease, on peritoneal dialysis. Due to the proximity of the abdominal wall abscess, may need separate access for hemodialysis. We will discuss with surgery. 4. Peritoneal dialysis status. 5. Diabetes mellitus type 2 with end-stage renal disease. We will continue sliding scale insulin and monitor blood glucose levels. 6. Morbid obesity, BMI of 40. 7. Essential hypertension, stable. Continue home medications as appropriate. Plan: Continue pain medications. Continue IV antibiotics. Follow up on cultures. ID consultation. We will discuss further with Surgery and Nephrology regarding dialysis access. Continue peritoneal dialysis as scheduled per Nephrology. ADDENDUM: Spoke with case management and nephrology. Patient still has not started PD. /LILY Voice ID: [id number] Report ID: [id number] MANI
[2019-05-06] MEDS ORDERED: EPOETIN ALFA 20,000 UNIT/1 ML VIAL SQ ONE (20:00)
--- NOTE | 2019-05-06 20:02 | P.PN ---
Date of Service: 05/06/19 Vital Signs Temp Pulse Resp BP Pulse Ox 97.9 F 66 20 150/76 H 100 05/06/19 16:00 05/06/19 16:00 05/06/19 16:00 05/06/19 16:00 05/06/19 16:00 Medications Calcitriol (Rocaltrol) 0.5 mcg PO DAILY [facility] Stop: 06/02/19 09:01 Last Admin: 05/06/19 09:00 Dose: 0.5 mcg Carvedilol (Coreg) 12.5 mg PO BID [facility] Stop: 06/02/19 21:01 Last Admin: 05/06/19 08:43 Dose: 12.5 mg Cholecalciferol (Vitamin D 5,000 Iu Cap) 5,000 unit PO DAILY [facility] Stop: 06/02/19 09:01 Last Admin: 05/06/19 08:43 Dose: 5,000 unit Epoetin Cuco (Procrit) 20,000 unit SQ 1X [facility] Stop: 06/05/19 20:01 Heparin Sodium (Porcine) (Heparin 5,000 Units/Ml) 5,000 unit SQ Q12HR [facility] Stop: 06/01/19 21:01 Last Admin: 05/06/19 08:43 Dose: 5,000 unit Hydralazine HCl (Apresoline) 100 mg PO TID [facility] Stop: 06/03/19 09:01 Last Admin: 05/06/19 14:23 Dose: 100 mg Hydromorphone HCl (Dilaudid) 0.5 mg IV Q4H PRN PRN Reason: Pain scale 5-7 (Moderate) Stop: 06/02/19 08:13 Last Admin: 05/06/19 05:05 Dose: 0.5 mg Clindamycin Phosphate 600 mg/ (Sodium Chloride) 54 mls @ 100 mls/hr IV Q8HR [facility] ; Protocol Stop: 06/02/19 01:01 Last Admin: 05/06/19 17:40 Dose: 54 mls Vancomycin HCl 2 gm/ Sodium (Chloride) 500 mls @ 250 mls/hr IVPB Q48H [facility] Stop: 06/04/19 00:01 Last Admin: 05/05/19 00:05 Dose: 500 mls Isosorbide Mononitrate (Imdur) 60 mg PO BID [facility] Stop: 06/05/19 21:01 Nifedipine (Procardia Xl) 90 mg PO BID [facility] Stop: 06/03/19 09:01 Last Admin: 05/06/19 08:41 Dose: 90 mg Ondansetron HCl (Zofran) 4 mg IV Q6HP PRN PRN Reason: NAUSEA / VOMITING Stop: 06/01/19 20:40 Sevelamer Carbonate (Renvela) 800 mg PO TIDWM [facility] Stop: 06/02/19 08:01 Last Admin: 05/06/19 17:40 Dose: 800 mg Sodium Bicarbonate (Sodium Bicarb 325 Mg) 650 mg PO TID [facility] Stop: 06/02/19 09:01 Last Admin: 05/06/19 14:28 Dose: 650 mg Sodium Chloride (Normal Saline Flush) 10 ml IV BID [facility] Stop: 06/01/19 21:01 Last Admin: 05/06/19 08:44 Dose: 10 ml Vitamin B Complex/Vit C/Folic Acid (Nephro-Norberto) 1 tab PO DAILY [facility] Stop: 06/02/19 09:01 Last Admin: 05/06/19 08:42 Dose: 1 tab Lab Results (last 24 hrs) 05/02/19 17:25: Crossmatch See Detail Microbiology Results 05/02/19 16:00 Blood - Blood Aerobic Blood Culture - Preliminary No growth in 24 hours. 05/02/19 16:00 Blood - Blood Anaerobic Blood Culture - Preliminary No growth in 24 hours. 05/02/19 15:45 Blood - Blood Aerobic Blood Culture - Preliminary No growth in 24 hours. 05/02/19 15:45 Blood - Blood Anaerobic Blood Culture - Preliminary No growth in 24 hours. Assessment/ Plan: Nephrology CPS stable without CP or SOB. No acute events overnight. Feeling better. Consider dialysis options at this time. Vitals, medications, blood work and imaging reviewed in the chart. General: In no apparent distress, Oriented x3, Cooperative HEENT: Atraumatic Neck: Supple Respiratory: Clear to auscultation bilaterally Cardiovascular: No edema, Regular rate/rhythm, No rubs Gastrointestinal: Soft and benign, Non-distended, No rebound Musculoskeletal: No clubbing, No contractures Integumentary: No rashes, No cyanosis, Skin breakdown, Skin lesion Neurological: Normal speech Urinary: PD Dialysis catheter Blood work reviewed in the chart. Hgb 6; Cr 12.6 Imagings Data: EXAM DESCRIPTION: CT - Abdomen Pelvis Wo Contrast - 05/02/2019 5:45 pm CLINICAL HISTORY: Abdominal pain COMPARISON: February 2019 TECHNIQUE: Computed axial tomography of the abdomen and pelvis was obtained. Oral contrast given. IV contrast not requested All CT scans are performed using dose optimization technique as appropriate and may include automated exposure control or mA/KV adjustment according to patient size. FINDINGS: The evaluation of solid organs, and vessels is limited secondary to the lack of contrast administration. Marked skin thickening surrounds the peritoneal dialysis catheter within the left anterior subcutaneous fat of the pelvis. Ill-defined fluid is present within the subcutaneous tissues measuring approximately 7 x 3 centimeters. The tip of the catheter lies within the pelvis. No pelvic abscess noted. The liver, spleen, pancreas, adrenals and kidneys appear grossly normal. The appendix is normal. There is no evidence of diverticulitis. Small inguinal hernias contain fat Small pericardial effusion IMPRESSION: Ill-defined 7 x 3 centimeter area of fluid within the left anterior subcutaneous fat of the pelvis lateral to the peritoneal dialysis catheter likely indicating a cellulitis. A discrete drainable fluid collection however is not seen. There is also marked skin thickening. Conclusions/Impression: A/ ESRD. Currently not on dialysis. Acidosis. HTN with CKD/ CHF. LE Edema, controlled. DM II with CKD. Anemia in CKD. MICHELLE/ Secondary HyperPTH. LLQ Abdominal Wall Abscess/ Cellulitis. MRSA. P/ Continue current POC and Medications. Follow up with Dr. Maynard for debridement. ID to see the patient. May need to remove the PD catheter. Recommend the patient consider HD due to multiple reasons. Continue abx. Renal dosing. Give Procrit, again. PRBC transfusion as needed. Increase Imdur. No NSAIDs. AM labs. Daily weight.
[2019-05-06] MEDS: VANCOMYCIN 2 GM in NA CHLORIDE 0.9% 500 ML IVPB SCH (23:37)
[2019-05-07] MEDS: HYDROMORPHONE HCL 0.5 MG/0.5 ML INJ IV PRN ×3 (00:16→21:29)
[2019-05-07] MEDS: CLINDAMYCIN PHOSPHATE 600 MG in NA CHLORIDE 0.9% 50 ML IV SCH ×3 (00:16→16:10)
[2019-05-07] MEDS ORDERED: EPOETIN ALFA-EPBX 10,000 UNIT/ML VIAL ONE (00:31)
[2019-05-07] MEDS ORDERED: EPOETIN ALFA-EPBX 4,000 UNIT/ML VIAL ONE (00:31)
[2019-05-07 03:22] LABS: HBsAG Nonreactive (Nonreactive)
[2019-05-07 05:41] LABS: Absolute Lymphocytes (CBC) 0.8 K/uL (0.7-4.9); Basophils % 0.6 % (0-1.3); Hematocrit 23.4 % (39.6-49.0); Lymphocytes % 9.7 % (15.3-44.8); MPV 8.1 fL (7.6-11.3); RBC Red Blood Cell Count 2.82 M/uL (4.33-5.43)
[2019-05-07] MEDS ORDERED: INFLUENZA VACCINE (for 3y+) 0.5 ML DOSE IMVAC ONE (06:00)
[2019-05-07] MEDS ORDERED: PNEUMOCOCCAL VACCINE 0.5 ML IMVAC ONE (06:00)
[2019-05-07 06:03] LABS: Albumin 2.3 g/dL (3.4-5.0); Bilirubin Total 0.2 mg/dL (0.2-1.0); Potassium 4.1 mmol/L (3.5-5.1); Protein, Total 6.2 g/dL (6.4-8.2)
--- NOTE | 2019-05-07 08:26 | CON ---
History Of Present Illness: This is a 48-year-old male, who is on peritoneal dialysis since October. The patient went into renal failure on August after he was switched on his blood pressure medica tions. Patient came in with abdominal wall abscess, which has been I and D'd by the surgical team. Patient denies any headache, nausea, vomiting, chest pain, abdominal pain, constipation, diarrhea at this time. Initial symptoms included abdominal pain. No fevers. Patient was brought into the emerg ency room after he found that he has blister on his abdomen close to the peritoneal dialysis catheter . Past Medical History: Hypertension, diabetes mellitus, end-stage renal disease, hyperlipidemia, I an d D of head abscess, bilateral knee repairs. Social History: Nonsmoker and nondrinker. Family History: Noncontributory. Medications: Clindamycin, vancomycin. See MAR for other medications. Allergies: MORPHINE. Review of Systems: A 10-point review was performed. Physical Examination: General: This is a 48-year-old male, lying in bed, not in any acute cardiopulmonary distress. Vital Signs: Temperature 97, pulse 67, respirations 18, blood pressure 150/80. HEENT: Unremarkable. Neck: Supple. Lungs: Basal crackles. Heart: S1, S2, regular. Abdomen: Soft, nontender. Bowel sounds present. Extremities: No edema. Abdominal wall wound noted. Laboratory Data: WBC 8.1, hemoglobin 8, platelets are 270. Chemistry shows sodium 142, potassium 3. 9, chloride 110, bicarb 21, BUN 90, creatinine 13, glucose is 126. Microdata: Wound cultures are gr owing MRSA. Blood cultures are negative for 24 hours. Assessment And Plan: This is a 48-year-old male with significant history of diabetes mellitus, hyper tension, and end-stage renal disease on peritoneal dialysis, coming in with abdominal wall abscess, w hich has been I and D'd. His white count has improved and the patient is currently being treated wit h vancomycin and clindamycin. We will continue vancomycin. Consider long-term acute care treatment for this patient. We will follow patient closely. Thank you for consult. NF/MODL Voice ID: [id number] Report ID: [id number]
[2019-05-07 08:45] LABS: Blood Morphology Comment NOT SEEN (NOT SEEN); Platelet Estimate ADEQ; Urine White Blood Cell Casts OK
[2019-05-07] MEDS: VITAMIN D 5,000 UNIT CAP PO SCH (09:31)
[2019-05-07] MEDS: HEPARIN 5000 UNIT/ML 1 ML VIAL SQ SCH ×2 (09:31→21:19)
[2019-05-07] MEDS: SEVELAMER CARBONATE 800 MG TABLET PO SCH ×3 (09:32→17:00)
[2019-05-07] MEDS: SODIUM BICARB 325 MG TAB PO SCH ×3 (09:32→21:16)
[2019-05-07] MEDS: NIFEDIPINE XL 90 MG TABLET PO SCH ×2 (09:32→21:16)
[2019-05-07] MEDS: CALCITROL 0.25 MCG CAP PO SCH (09:32)
[2019-05-07] MEDS: HYDRALAZINE HCL 25 MG TABLET PO SCH ×3 (09:33→21:16)
[2019-05-07] MEDS: ISOSORBIDE MONO SR 30 MG TAB PO SCH ×2 (09:33→21:18)
[2019-05-07] MEDS: carvediloL 12.5 MG TAB PO SCH ×2 (09:33→21:18)
[2019-05-07] MEDS: MULTIVITAMINS,THERAPEUT 1 TAB PO SCH (09:33)
--- NOTE | 2019-05-07 13:15 | P.PN ---
Subjective Date of Service: 05/06/19 Chief Complaint: abdominal wall abscess Subjective: Tolerating diet, Improving Physical Examination - Vital Signs Temperature: 97.1 F Blood Pressure: 139/75 Pulse: 76 Respirations: 17 Pulse Ox (%): 98 - Physical Exam General: Alert, Oriented x3, Cooperative HEENT: PERRLA, EOMI Neck: Supple Gastrointestinal: Soft and benign Integumentary: Erythema (limproving), Warmth (improvinf) Assessment And Plan - Plan wound vac ID consult ABX Peritoneal catheter not exposed although its in the area of induration. If used for dialysis. keep it away from the wound. Wound VAC may help.
--- NOTE | 2019-05-07 16:37 | PN ---
Date of Progress Note: 05/07/2019 Subjective: Patient seen and examined. Chart reviewed and case discussed with RN and Dr. Culp. Patient apparently has not been on dialysis. Patient refusing wound VAC at this time. Medications: List reviewed. Physical Examination: Vital Signs: Temperature 97.2, heart rate 61, blood pressure 118/65, respirations 18, O2 99% on room air. General: Awake, alert, oriented x3, not in any acute distress. Morbidly obese male. CV: S1, S2. Regular rate and rhythm. Peripheral pulses present. Respiratory: Moving air well bilaterally. No wheezing or stridor. Gastrointestinal: Abdomen is soft, nontender, nondistended. Positive bowel sounds. Incision site b andaged. Peritoneal dialysis catheter present. Extremities: No clubbing or cyanosis. Patient has some pedal edema. Neurologic: Nonfocal. Laboratory Data: WBC 8.4, H and H 7.8 and 23.4, platelets 294, neutrophils 76%. Sodium 143, potassi um 4.1, chloride 111, CO2 of 21, BUN 89, creatinine 13, glucose 108, calcium 8, albumin 2.3. Wound f rom the abdomen growing out MRSA. Assessment: 48-year-old male with; 1.Abdominal wall abscess secondary to methicillin-resistant Staphylococcus aureus, status post I and D. Growing out methicillin-resistant Staphylococcus aureus. We will continue IV antibiotics. 2.End-stage renal disease. Patient apparently has peritoneal dialysis catheter, however, is not on dialysis at this time. Patient refusing hemodialysis as well. We will discuss further with Nephrolo gy. Abscess does not involve the peritoneal dialysis catheter. 3.Acute on chronic anemia secondary to anemia of chronic disease secondary to end-stage renal diseas e, improved after transfusion, currently down to 7.8. Patient is on Procrit. We will continue with iron supplementation as well. 4.Diabetes mellitus type 2 with end-stage renal disease, was on peritoneal dialysis. We will contin ue monitoring Accu-Cheks and sliding scale insulin. 5.Essential hypertension, stable. 6.Morbid obesity BMI of 40. Plan: Discharge planning. Patient likely will need a PICC line and long-term IV antibiotics for thi s abscess for a minimum of 2 weeks. Appreciate ID consultation. LORIN Voice ID: [id number] Report ID: [id number]
--- NOTE | 2019-05-07 21:26 | P.PN ---
Date of Service: 05/07/19 Vital Signs Temp Pulse Resp BP Pulse Ox 97.8 F 69 17 157/81 H 99 05/07/19 20:00 05/07/19 20:00 05/07/19 20:00 05/07/19 20:00 05/07/19 20:00 Medications Calcitriol (Rocaltrol) 0.5 mcg PO DAILY [facility] Stop: 06/02/19 09:01 Last Admin: 05/07/19 09:32 Dose: 0.5 mcg Carvedilol (Coreg) 12.5 mg PO BID [facility] Stop: 06/02/19 21:01 Last Admin: 05/07/19 09:33 Dose: 12.5 mg Cholecalciferol (Vitamin D 5,000 Iu Cap) 5,000 unit PO DAILY [facility] Stop: 06/02/19 09:01 Last Admin: 05/07/19 09:31 Dose: 5,000 unit Heparin Sodium (Porcine) (Heparin 5,000 Units/Ml) 5,000 unit SQ Q12HR [facility] Stop: 06/01/19 21:01 Last Admin: 05/07/19 09:31 Dose: 5,000 unit Hydralazine HCl (Apresoline) 100 mg PO TID [facility] Stop: 06/03/19 09:01 Last Admin: 05/07/19 15:18 Dose: 100 mg Hydromorphone HCl (Dilaudid) 0.5 mg IV Q4H PRN PRN Reason: Pain scale 5-7 (Moderate) Stop: 06/02/19 08:13 Last Admin: 05/07/19 13:15 Dose: 0.5 mg Clindamycin Phosphate 600 mg/ (Sodium Chloride) 54 mls @ 100 mls/hr IV Q8HR [facility] ; Protocol Stop: 06/02/19 01:01 Last Admin: 05/07/19 16:10 Dose: 54 mls Vancomycin HCl 2 gm/ Sodium (Chloride) 500 mls @ 250 mls/hr IVPB Q48H [facility] Stop: 06/04/19 00:01 Last Admin: 05/06/19 23:37 Dose: Not Given Isosorbide Mononitrate (Imdur) 60 mg PO BID [facility] Stop: 06/05/19 21:01 Last Admin: 05/07/19 09:33 Dose: 60 mg Nifedipine (Procardia Xl) 90 mg PO BID [facility] Stop: 06/03/19 09:01 Last Admin: 05/07/19 09:32 Dose: 90 mg Ondansetron HCl (Zofran) 4 mg IV Q6HP PRN PRN Reason: NAUSEA / VOMITING Stop: 06/01/19 20:40 Sevelamer Carbonate (Renvela) 800 mg PO TIDWM [facility] Stop: 06/02/19 08:01 Last Admin: 05/07/19 17:00 Dose: 800 mg Sodium Bicarbonate (Sodium Bicarb 325 Mg) 650 mg PO TID [facility] Stop: 06/02/19 09:01 Last Admin: 05/07/19 15:19 Dose: 650 mg Sodium Chloride (Normal Saline Flush) 10 ml IV BID [facility] Stop: 06/01/19 21:01 Last Admin: 05/07/19 09:34 Dose: 10 ml Vitamin B Complex/Vit C/Folic Acid (Nephro-Norberto) 1 tab PO DAILY [facility] Stop: 06/02/19 09:01 Last Admin: 05/07/19 09:33 Dose: 1 tab Microbiology Results 05/02/19 16:00 Blood - Blood Aerobic Blood Culture - Final No growth in 5 days. 05/02/19 16:00 Blood - Blood Anaerobic Blood Culture - Final No growth in 5 days. 05/02/19 15:45 Blood - Blood Aerobic Blood Culture - Final No growth in 5 days. 05/02/19 15:45 Blood - Blood Anaerobic Blood Culture - Final No growth in 5 days. Assessment/ Plan: Nephrology CPS stable without CP or SOB. No acute events overnight. Feeling better. Wound vac placed today. Patient states that he prefers to stay with PD despite his infection risk due to poor vision. Vitals, medications, blood work and imaging reviewed in the chart. General: In no apparent distress, Oriented x3, Cooperative HEENT: Atraumatic Neck: Supple Respiratory: Clear to auscultation bilaterally Cardiovascular: No edema, Regular rate/rhythm, No rubs Gastrointestinal: Soft and benign, Non-distended, No rebound Musculoskeletal: No clubbing, No contractures Integumentary: No rashes, No cyanosis, Skin breakdown, Skin lesion Neurological: Normal speech Urinary: PD Dialysis catheter Blood work reviewed in the chart. Hgb 6; Cr 12.6 Imagings Data: EXAM DESCRIPTION: CT - Abdomen Pelvis Wo Contrast - 05/02/2019 5:45 pm CLINICAL HISTORY: Abdominal pain COMPARISON: February 2019 TECHNIQUE: Computed axial tomography of the abdomen and pelvis was obtained. Oral contrast given. IV contrast not requested All CT scans are performed using dose optimization technique as appropriate and may include automated exposure control or mA/KV adjustment according to patient size. FINDINGS: The evaluation of solid organs, and vessels is limited secondary to the lack of contrast administration. Marked skin thickening surrounds the peritoneal dialysis catheter within the left anterior subcutaneous fat of the pelvis. Ill-defined fluid is present within the subcutaneous tissues measuring approximately 7 x 3 centimeters. The tip of the catheter lies within the pelvis. No pelvic abscess noted. The liver, spleen, pancreas, adrenals and kidneys appear grossly normal. The appendix is normal. There is no evidence of diverticulitis. Small inguinal hernias contain fat Small pericardial effusion IMPRESSION: Ill-defined 7 x 3 centimeter area of fluid within the left anterior subcutaneous fat of the pelvis lateral to the peritoneal dialysis catheter likely indicating a cellulitis. A discrete drainable fluid collection however is not seen. There is also marked skin thickening. Conclusions/Impression: A/ ESRD. Currently not on dialysis. Acidosis. HTN with CKD/ CHF. LE Edema, controlled. DM II with CKD. Anemia in CKD. MICHELLE/ Secondary HyperPTH. LLQ Abdominal Wall Abscess/ Cellulitis. MRSA. P/ Continue current POC and Medications. Start Doxazosin 2mg at bedtime. Follow up with Dr. Maynard for wound care. ID managing the abx. Continue abx. Renal dosing. Recommend the patient consider HD due to multiple reasons including a high infection risk with PD due to poor vision. PRBC transfusion as needed. No NSAIDs. AM labs. Daily weight.
[2019-05-07] MEDS: DOXAZOSIN 2 MG TAB PO SCH (23:08)
[2019-05-08] MEDS: CLINDAMYCIN PHOSPHATE 600 MG in NA CHLORIDE 0.9% 50 ML IV SCH ×3 (00:30→16:55)
[2019-05-08] MEDS: HYDROMORPHONE HCL 0.5 MG/0.5 ML INJ IV PRN ×4 (01:29→20:25)
[2019-05-08] MEDS: HEPARIN 5000 UNIT/ML 1 ML VIAL SQ SCH ×2 (09:34→20:11)
[2019-05-08] MEDS: CALCITROL 0.25 MCG CAP PO SCH (09:35)
[2019-05-08] MEDS: NIFEDIPINE XL 90 MG TABLET PO SCH ×2 (09:35→20:11)
[2019-05-08] MEDS: ISOSORBIDE MONO SR 30 MG TAB PO SCH ×2 (09:35→20:12)
[2019-05-08] MEDS: HYDRALAZINE HCL 25 MG TABLET PO SCH ×3 (09:35→20:12)
[2019-05-08] MEDS: SEVELAMER CARBONATE 800 MG TABLET PO SCH ×3 (09:35→16:29)
[2019-05-08] MEDS: carvediloL 12.5 MG TAB PO SCH ×2 (09:36→20:12)
[2019-05-08] MEDS: VITAMIN D 5,000 UNIT CAP PO SCH (09:36)
[2019-05-08] MEDS: MULTIVITAMINS,THERAPEUT 1 TAB PO SCH (09:36)
[2019-05-08] MEDS: SODIUM BICARB 325 MG TAB PO SCH ×3 (09:36→20:10)
[2019-05-08] MEDS: ONDANSETRON 4 MG/2 ML VIAL IV PRN (11:13)
--- NOTE | 2019-05-08 11:37 | PN ---
Date of Progress Note: 05/08/2019 Subjective: Patient seen and examined. Chart reviewed and case discussed with RN and Dr. Culp. I had a long talk with the patient. He has missed multiple training sessions for his peritoneal dialysis, refuses to switch to hemodialysis, has poor vision. Discussing options for IV antibiotics long-term at home versus through the infusion center as the patient is unfunded. Medications: List reviewed. Physical Examination: Vital Signs: Temperature 97.8, heart rate 68, blood pressure 169/68, respirations 17, O2 at 98% on room air. General: Awake, alert, oriented x3. Morbidly obese male, somewhat ill- appearing. CV: S1, S2. Regular rate and rhythm. Peripheral pulses present. Respiratory: Moving air well bilaterally. No wheezing or stridor. Gastrointestinal: Abdomen is soft, nontender, nondistended. Positive bowel sounds. Wound VAC in place. Peritoneal dialysis catheter in place. Extremities: No clubbing, cyanosis. Pedal edema. Neurologic: Nonfocal. Skin: Abdominal wound has wound VAC in place 6. Laboratory Data: Pending wound cultures, growing out MRSA. Blood cultures no growth to date. Assessment And Plan: A 48-year-old male with: 1. Abdominal wall abscess secondary to methicillin-resistant Staphylococcus aureus, status post I and D. Continue with IV antibiotics. We will need long- term IV antibiotics for minimum of 2 weeks. 2. End-stage renal disease. Patient has peritoneal dialysis catheter however has still not initiated dialysis due to noncompliance. Patient has missed his peritoneal dialysis training sessions 4 times. Patient refusing to switch to hemodialysis. Discussed with Nephrology. 3. Acute on chronic anemia secondary to anemia of chronic disease and end- stage renal disease. We will repeat H and H this morning. Continue Procrit and iron supplementation. Transfuse as needed. 4. Diabetes mellitus type 2 with end-stage renal disease. We will continue with sliding scale insulin and monitor Accu-Cheks. 5. Essential hypertension stable. 6. Morbid obesity. BMI of 40. 7. Diabetic retinopathy. Plan: PICC line versus infusion every 48-72 hours with peripheral IV at the infusion center. We will discuss further with Case Management. /LILY Voice ID: [id number] Report ID: [id number] [facility] HOSPITALFreddie
--- NOTE | 2019-05-08 11:45 | PN ---
Subjective: Patient is lying in bed. No new acute event. Chart reviewed. Denies any headache, jasmin sea, vomiting, chest pain, abdominal pain, constipation, or diarrhea. Has a wound VAC placed. Objective: Vital Signs: Temperature 97, pulse 76, respirations 16, blood pressure 139/75. Lungs: Basal crackles. Heart: S1, S2 regular. Abdomen: Soft. Bowel sounds present. Wound VAC in place. Extremities: No edema. Laboratory Data: WBC 8.4, hemoglobin 7.8, platelets 294. Chemistry shows sodium 143, potassium 4.1, chloride 111, bicarb 21, BUN 89, creatinine 13, glucose 125. Wound cultures growing MRSA. Assessment And Plan: Abdominal wall abscess and cellulitis at the dialysis catheter site. Continue IV antibiotic, total course of 6 weeks with vancomycin and we will follow the patient as needed. NF/MODL Voice ID: [id number] Report ID: [id number]
[2019-05-08 11:46] LABS: Absolute Lymphocytes (CBC) 0.6 K/uL (0.7-4.9); Basophils % 0.8 % (0-1.3); Lymphocytes % 7.8 % (15.3-44.8); MPV 8.1 fL (7.6-11.3); RBC Red Blood Cell Count 3.07 M/uL (4.33-5.43)
[2019-05-08 12:08] LABS: Potassium 4.2 mmol/L (3.5-5.1)
[2019-05-08] MEDS ORDERED: EPOETIN ALFA 20,000 UNIT/1 ML VIAL SQ SCH (14:30)
--- NOTE | 2019-05-08 18:15 | PN ---
Subjective: Patient lying in bed, not in any acute cardiopulmonary distress. Objective: Vital Signs: Temperature 97, pulse 68, respirations 16, blood pressure 169/88. Lungs: Basal crackles. Heart: S1, S2. Regular. Abdomen: Soft, nontender. Bowel sounds present. Abdominal wound noted. Wound VAC in place. Extremities: No edema. Erythematous changes noted in the abdominal wall area. Laboratory Data: Shows WBC 8.2, hemoglobin 8.4, platelets are 308. Chemistry shows sodium 142, pota ssium 4.2, chloride 110, bicarb 21, BUN is 88, creatinine 13, glucose is 123. Wound cultures are josé miguel wing MRSA. Medications: Patient is currently on vancomycin and clindamycin. Assessment And Plan: Abdominal wall cellulitis and abscess secondary to methicillin-resistant Staphy lococcus aureus. Continue antibiotic and supportive care total of 2 weeks. Continue wound VAC for n ow. We will follow the patient as needed. VICENTE/MODL Voice ID: [id number] Report ID: [id number]
[2019-05-08] MEDS: DOXAZOSIN 2 MG TAB PO SCH (20:12)
--- NOTE | 2019-05-08 20:27 | PN ---
Date of Progress Note: 05/08/2019 Subjective: Patient is seen and examined at bedside. He is doing okay. He states that he does not have any appetite. Objective: Vital Signs: Have been reviewed and are stable. General: He appears in no acute distress. HEENT: Atraumatic head. Lungs: Clear to auscultation. Abdomen: With abscess and drain was noted. Laboratory Data: At this time are showing labs consistent with ESRD. Hemoglobin of 8.4, hematocrit of 26, and platelet count of 308. Current Medications: Calcitriol, carvedilol, clindamycin, doxazosin at bedtime, hydralazine t.i.d., isosorbide, Dilaudid p.r.n. for pain, nifedipine, sevelamer, vancomycin. Impression: 1.End-stage renal disease. Patient is supposed to be starting peritoneal dialysis, but has not star manuel it yet secondary to noncompliance. 2.Abdominal wall abscess secondary to methicillin-resistant Staphylococcus aureus infection. Patien t remains on vancomycin. 3.Hypertension. 4.Lower extremity edema. 5.Anemia secondary to chronic kidney disease. 6.Secondary hyperparathyroidism secondary to end-stage renal disease. Plan: Patient is overall clinically stable. We are awaiting infectious disease recommendations for antibiotics. Patient is needing long-term antibiotic care for 2 weeks. Patient has been counseled o n need for compliance. He may benefit from giving a dose of Epogen to maintain his anemia levels. H is blood pressure is high, but overall stable. We will go ahead and give him a dose of Epogen to maintain his anemia levels and we will follow up closely. Plan to start peritoneal dialysis training as soon as he is discharged. MONSTER/MODL Voice ID: [id number] Report ID: [id number]
[2019-05-09] MEDS: CLINDAMYCIN PHOSPHATE 600 MG in NA CHLORIDE 0.9% 50 ML IV SCH ×3 (00:13→16:59)
[2019-05-09] MEDS: SEVELAMER CARBONATE 800 MG TABLET PO SCH ×3 (08:20→16:59)
[2019-05-09] MEDS: VITAMIN D 5,000 UNIT CAP PO SCH (08:20)
[2019-05-09] MEDS: ISOSORBIDE MONO SR 30 MG TAB PO SCH ×2 (08:20→20:46)
[2019-05-09] MEDS: HYDRALAZINE HCL 25 MG TABLET PO SCH ×3 (08:20→20:46)
[2019-05-09] MEDS: NIFEDIPINE XL 90 MG TABLET PO SCH ×2 (08:20→20:45)
[2019-05-09] MEDS: SODIUM BICARB 325 MG TAB PO SCH ×3 (08:20→20:46)
[2019-05-09] MEDS: CALCITROL 0.25 MCG CAP PO SCH (08:21)
[2019-05-09] MEDS: HEPARIN 5000 UNIT/ML 1 ML VIAL SQ SCH ×2 (08:21→20:41)
[2019-05-09] MEDS: carvediloL 12.5 MG TAB PO SCH ×2 (08:21→20:46)
[2019-05-09] MEDS: MULTIVITAMINS,THERAPEUT 1 TAB PO SCH (08:21)
[2019-05-09] MEDS ORDERED: VANCOMYCIN 2 GM in NA CHLORIDE 0.9% 500 ML IVPB SCH (09:00)
--- NOTE | 2019-05-09 17:46 | PN ---
Date of Progress Note: 05/09/2019 Subjective: Patient seen and examined. Chart reviewed and case discussed with RN and Dr. Esteban. Patient understands that he will need to come to the infusion center for his IV antibiotics for the next week as outpatient, will also need to follow up for his wound VAC care. Medications: List reviewed. Physical Examination: Vital Signs: Temperature 97.8, heart rate 68, blood pressure 139/56, respirations 18, O2 97% on room air. General: Awake, alert, oriented x3. Morbidly obese. Not in any acute distress. CV: S1, S2. Regular rate and rhythm. Peripheral pulses present. Respiratory: Moving air well bilaterally. No wheezing or stridor. Gastrointestinal: Abdomen is soft, nontender, nondistended. Positive bowel sounds. PD tube is in p lace. Wound VAC also in place. Bowel sounds positive. Extremities: No clubbing or cyanosis. Pedal edema present. Neurologic: Nonfocal. Laboratory Data: Blood glucose levels between 106 and 122. Wound cultures from the abdomen growing out MRSA. Blood cultures are negative. Assessment: 48-year-old male with: 1.Abdominal wall abscess secondary to methicillin-resistant Staphylococcus aureus, status post I and D. Continue IV antibiotics for 2 weeks total. Appreciate ID input. 2.End-stage renal disease. Patient has not yet started peritoneal dialysis due to noncompliance. Traci norwood wishes to follow up outpatient with Nephrology group and to have training done for his peritoneal d ialysis. He has refused hemodialysis as well. 3.Acute on chronic anemia secondary to anemia of chronic disease and end-stage renal disease. H and H are stable. We will continue Procrit. Monitor H and H, transfuse as needed. 4.Diabetes mellitus type 2 with end-stage renal disease. Continue sliding scale insulin. Monitor A ccu-Cheks. 5.Essential hypertension, stable. 6.Morbid obesity. BMI of 40. 7.Diabetic retinopathy. Patient needs to follow up with Ophthalmology as outpatient. Plan: Once IV antibiotics and wound care for his wound VAC have been set up, patient will be dischar ged. SA/MODL Voice ID: [id number] Report ID: [id number]
--- NOTE | 2019-05-09 20:05 | P.PN ---
Date of Service: 05/09/19 Vital Signs Temp Pulse Resp BP Pulse Ox 97.7 F 67 18 150/70 H 100 05/09/19 16:00 05/09/19 16:00 05/09/19 16:00 05/09/19 17:39 05/09/19 16:00 Medications Calcitriol (Rocaltrol) 0.5 mcg PO DAILY [facility] Stop: 06/02/19 09:01 Last Admin: 05/09/19 08:21 Dose: 0.5 mcg Carvedilol (Coreg) 12.5 mg PO BID [facility] Stop: 06/02/19 21:01 Last Admin: 05/09/19 08:21 Dose: 12.5 mg Cholecalciferol (Vitamin D 5,000 Iu Cap) 5,000 unit PO DAILY [facility] Stop: 06/02/19 09:01 Last Admin: 05/09/19 08:20 Dose: 5,000 unit Doxazosin Mesylate (Cardura) 2 mg PO BEDTIME [facility] Stop: 06/06/19 21:31 Last Admin: 05/08/19 20:12 Dose: 2 mg Heparin Sodium (Porcine) (Heparin 5,000 Units/Ml) 5,000 unit SQ Q12HR [facility] Stop: 06/08/19 09:01 Last Admin: 05/09/19 08:21 Dose: 5,000 unit Hydralazine HCl (Apresoline) 100 mg PO TID [facility] Stop: 06/03/19 09:01 Last Admin: 05/09/19 13:11 Dose: 100 mg Clindamycin Phosphate 600 mg/ (Sodium Chloride) 54 mls @ 100 mls/hr IV Q8HR [facility] ; Protocol Stop: 06/02/19 01:01 Last Admin: 05/09/19 16:59 Dose: 54 mls Vancomycin HCl 2 gm/ Sodium (Chloride) 500 mls @ 250 mls/hr IVPB Q72H [facility] Stop: 06/09/19 09:01 Isosorbide Mononitrate (Imdur) 60 mg PO BID [facility] Stop: 06/05/19 21:01 Last Admin: 05/09/19 08:20 Dose: 60 mg Nifedipine (Procardia Xl) 90 mg PO BID [facility] Stop: 06/03/19 09:01 Last Admin: 05/09/19 08:20 Dose: 90 mg Ondansetron HCl (Zofran) 4 mg IV Q6HP PRN PRN Reason: NAUSEA / VOMITING Stop: 06/01/19 20:40 Last Admin: 05/08/19 11:13 Dose: 4 mg Sevelamer Carbonate (Renvela) 800 mg PO TIDWM [facility] Stop: 06/02/19 08:01 Last Admin: 05/09/19 16:59 Dose: 800 mg Sodium Bicarbonate (Sodium Bicarb 325 Mg) 650 mg PO TID [facility] Stop: 06/02/19 09:01 Last Admin: 05/09/19 13:10 Dose: 650 mg Sodium Chloride (Normal Saline Flush) 10 ml IV BID [facility] Stop: 06/01/19 21:01 Last Admin: 05/09/19 08:22 Dose: 10 ml Tramadol/Acetaminophen (Ultracet 37.5 Mg/Apap 325 Mg Per Tab) 1 tab PO Q6H PRN PRN Reason: Pain scale 5-7 (Moderate) Stop: 06/08/19 19:13 Vitamin B Complex/Vit C/Folic Acid (Nephro-Norberto) 1 tab PO DAILY [facility] Stop: 06/02/19 09:01 Last Admin: 05/09/19 08:21 Dose: 1 tab Microbiology Results 05/02/19 16:00 Blood - Blood Aerobic Blood Culture - Final No growth in 5 days. 05/02/19 16:00 Blood - Blood Anaerobic Blood Culture - Final No growth in 5 days. 05/02/19 15:45 Blood - Blood Aerobic Blood Culture - Final No growth in 5 days. 05/02/19 15:45 Blood - Blood Anaerobic Blood Culture - Final No growth in 5 days. Assessment/ Plan: Nephrology CPS stable without CP or SOB. No acute events overnight. Doing well. Vitals, medications, blood work and imaging reviewed in the chart. General: In no apparent distress, Oriented x3, Cooperative HEENT: Atraumatic Neck: Supple Respiratory: Clear to auscultation bilaterally Cardiovascular: No edema, Regular rate/rhythm, No rubs Gastrointestinal: Soft and benign, Non-distended, No rebound Musculoskeletal: No clubbing, No contractures Integumentary: No rashes, No cyanosis, Skin breakdown, Skin lesion Neurological: Normal speech Urinary: PD Dialysis catheter Blood work reviewed in the chart. Hgb 6; Cr 12.6 Imagings Data: EXAM DESCRIPTION: CT - Abdomen Pelvis Wo Contrast - 05/02/2019 5:45 pm CLINICAL HISTORY: Abdominal pain COMPARISON: February 2019 TECHNIQUE: Computed axial tomography of the abdomen and pelvis was obtained. Oral contrast given. IV contrast not requested All CT scans are performed using dose optimization technique as appropriate and may include automated exposure control or mA/KV adjustment according to patient size. FINDINGS: The evaluation of solid organs, and vessels is limited secondary to the lack of contrast administration. Marked skin thickening surrounds the peritoneal dialysis catheter within the left anterior subcutaneous fat of the pelvis. Ill-defined fluid is present within the subcutaneous tissues measuring approximately 7 x 3 centimeters. The tip of the catheter lies within the pelvis. No pelvic abscess noted. The liver, spleen, pancreas, adrenals and kidneys appear grossly normal. The appendix is normal. There is no evidence of diverticulitis. Small inguinal hernias contain fat Small pericardial effusion IMPRESSION: Ill-defined 7 x 3 centimeter area of fluid within the left anterior subcutaneous fat of the pelvis lateral to the peritoneal dialysis catheter likely indicating a cellulitis. A discrete drainable fluid collection however is not seen. There is also marked skin thickening. Conclusions/Impression: A/ ESRD. Currently not on dialysis. Acidosis. HTN with CKD/ CHF. LE Edema, controlled. DM II with CKD. Anemia in CKD. MICHELLE/ Secondary HyperPTH. LLQ Abdominal Wall Abscess/ Cellulitis. MRSA. P/ Continue current POC and Medications. Increase Doxazosin 2mg BID. Follow up with Dr. Maynard for wound care. ID managing the abx. Continue abx. Renal dosing. Recommend the patient consider HD due to multiple reasons including a high infection risk with PD due to poor vision. PRBC transfusion as needed. No NSAIDs. AM labs. Daily weight.
[2019-05-09] MEDS: DOXAZOSIN 2 MG TAB PO SCH (20:46)
[2019-05-10] MEDS: CLINDAMYCIN PHOSPHATE 600 MG in NA CHLORIDE 0.9% 50 ML IV SCH ×3 (00:01→17:18)
[2019-05-10] MEDS: TRAMADOL 37.5mg/APAP 325mg PER TAB PO PRN ×2 (00:12→11:58)
[2019-05-10 05:23] LABS: Absolute Lymphocytes (CBC) 0.9 K/uL (0.7-4.9); Basophils % 0.8 % (0-1.3); Hematocrit 23.5 % (39.6-49.0); Lymphocytes % 12.8 % (15.3-44.8); MPV 7.8 fL (7.6-11.3); RBC Red Blood Cell Count 2.78 M/uL (4.33-5.43)
[2019-05-10 05:43] LABS: Albumin 2.4 g/dL (3.4-5.0); Bilirubin Total 0.2 mg/dL (0.2-1.0); Phosphorus 7.9 mg/dL (2.5-4.9); Potassium 4.5 mmol/L (3.5-5.1); Protein, Total 6.1 g/dL (6.4-8.2)
[2019-05-10] MEDS: DOXAZOSIN 2 MG TAB PO SCH ×2 (08:58→20:56)
[2019-05-10] MEDS: SODIUM BICARB 325 MG TAB PO SCH ×3 (08:58→20:53)
[2019-05-10] MEDS: CALCITROL 0.25 MCG CAP PO SCH (08:59)
[2019-05-10] MEDS: ISOSORBIDE MONO SR 30 MG TAB PO SCH ×2 (08:59→20:54)
[2019-05-10] MEDS: SEVELAMER CARBONATE 800 MG TABLET PO SCH ×3 (08:59→17:18)
[2019-05-10] MEDS: MULTIVITAMINS,THERAPEUT 1 TAB PO SCH (09:00)
[2019-05-10] MEDS: NIFEDIPINE XL 90 MG TABLET PO SCH ×2 (09:00→20:54)
[2019-05-10] MEDS: carvediloL 12.5 MG TAB PO SCH ×2 (09:00→20:54)
[2019-05-10] MEDS ORDERED: VANCOMYCIN 2 GM in NA CHLORIDE 0.9% 500 ML IVPB SCH (09:00)
[2019-05-10] MEDS: HYDRALAZINE HCL 25 MG TABLET PO SCH ×3 (09:01→20:54)
[2019-05-10] MEDS: HEPARIN 5000 UNIT/ML 1 ML VIAL SQ SCH ×2 (09:01→20:56)
[2019-05-10] MEDS: VANCOMYCIN/NS 1 gm 1 GM/250 ML BAG IV SCH (09:55)
[2019-05-10] MEDS: VITAMIN D 5,000 UNIT CAP PO SCH (09:55)
--- NOTE | 2019-05-10 20:26 | P.PN ---
Date of Service: 05/10/19 Vital Signs Temp Pulse Resp BP Pulse Ox 97.5 F 64 18 151/64 H 100 05/10/19 16:00 05/10/19 16:00 05/10/19 16:00 05/10/19 16:00 05/10/19 16:00 Medications Calcitriol (Rocaltrol) 0.5 mcg PO DAILY [facility] Stop: 06/02/19 09:01 Last Admin: 05/10/19 08:59 Dose: 0.5 mcg Carvedilol (Coreg) 12.5 mg PO BID [facility] Stop: 06/02/19 21:01 Last Admin: 05/10/19 09:00 Dose: 12.5 mg Cholecalciferol (Vitamin D 5,000 Iu Cap) 5,000 unit PO DAILY [facility] Stop: 06/02/19 09:01 Last Admin: 05/10/19 09:55 Dose: 5,000 unit Doxazosin Mesylate (Cardura) 2 mg PO BID [facility] Stop: 06/08/19 21:01 Last Admin: 05/10/19 08:58 Dose: 2 mg Heparin Sodium (Porcine) (Heparin 5,000 Units/Ml) 5,000 unit SQ Q12HR [facility] Stop: 06/08/19 09:01 Last Admin: 05/10/19 09:01 Dose: 5,000 unit Hydralazine HCl (Apresoline) 100 mg PO TID [facility] Stop: 06/03/19 09:01 Last Admin: 05/10/19 14:02 Dose: 100 mg Clindamycin Phosphate 600 mg/ (Sodium Chloride) 54 mls @ 100 mls/hr IV Q8HR [facility] ; Protocol Stop: 06/02/19 01:01 Last Admin: 05/10/19 17:18 Dose: 54 mls Vancomycin HCl (Vancomycin 1 Gm/250 Ml Ns Ivpb) 1 gm in 250 mls @ 150 mls/hr IV Q72H [facility] Stop: 06/09/19 09:01 Last Admin: 05/10/19 09:55 Dose: 250 mls Isosorbide Mononitrate (Imdur) 60 mg PO BID [facility] Stop: 06/05/19 21:01 Last Admin: 05/10/19 08:59 Dose: 60 mg Nifedipine (Procardia Xl) 90 mg PO BID [facility] Stop: 06/03/19 09:01 Last Admin: 05/10/19 09:00 Dose: 90 mg Ondansetron HCl (Zofran) 4 mg IV Q6HP PRN PRN Reason: NAUSEA / VOMITING Stop: 06/01/19 20:40 Last Admin: 05/08/19 11:13 Dose: 4 mg Sevelamer Carbonate (Renvela) 800 mg PO TIDWM [facility] Stop: 06/02/19 08:01 Last Admin: 05/10/19 17:18 Dose: 800 mg Sodium Bicarbonate (Sodium Bicarb 325 Mg) 650 mg PO QID [facility] Stop: 06/09/19 21:01 Sodium Chloride (Normal Saline Flush) 10 ml IV BID [facility] Stop: 06/01/19 21:01 Last Admin: 05/10/19 09:55 Dose: 10 ml Tramadol/Acetaminophen (Ultracet 37.5 Mg/Apap 325 Mg Per Tab) 1 tab PO Q6H PRN PRN Reason: Pain scale 5-7 (Moderate) Stop: 06/08/19 19:13 Last Admin: 05/10/19 11:58 Dose: 1 tab Vitamin B Complex/Vit C/Folic Acid (Nephro-Norberto) 1 tab PO DAILY [facility] Stop: 06/02/19 09:01 Last Admin: 05/10/19 09:00 Dose: 1 tab Microbiology Results 05/02/19 16:00 Blood - Blood Aerobic Blood Culture - Final No growth in 5 days. 05/02/19 16:00 Blood - Blood Anaerobic Blood Culture - Final No growth in 5 days. 05/02/19 15:45 Blood - Blood Aerobic Blood Culture - Final No growth in 5 days. 05/02/19 15:45 Blood - Blood Anaerobic Blood Culture - Final No growth in 5 days. Assessment/ Plan: Nephrology CPS stable without CP or SOB. No acute events overnight. Feeling better. Vitals, medications, blood work and imaging reviewed in the chart. General: In no apparent distress, Oriented x3, Cooperative HEENT: Atraumatic Neck: Supple Respiratory: Clear to auscultation bilaterally Cardiovascular: No edema, Regular rate/rhythm, No rubs Gastrointestinal: Soft and benign, Non-distended, No rebound Musculoskeletal: No clubbing, No contractures Integumentary: No rashes, No cyanosis, Skin breakdown, Skin lesion Neurological: Normal speech Urinary: PD Dialysis catheter Blood work reviewed in the chart. Hgb 6; Cr 12.6 Imagings Data: EXAM DESCRIPTION: CT - Abdomen Pelvis Wo Contrast - 05/02/2019 5:45 pm CLINICAL HISTORY: Abdominal pain COMPARISON: February 2019 TECHNIQUE: Computed axial tomography of the abdomen and pelvis was obtained. Oral contrast given. IV contrast not requested All CT scans are performed using dose optimization technique as appropriate and may include automated exposure control or mA/KV adjustment according to patient size. FINDINGS: The evaluation of solid organs, and vessels is limited secondary to the lack of contrast administration. Marked skin thickening surrounds the peritoneal dialysis catheter within the left anterior subcutaneous fat of the pelvis. Ill-defined fluid is present within the subcutaneous tissues measuring approximately 7 x 3 centimeters. The tip of the catheter lies within the pelvis. No pelvic abscess noted. The liver, spleen, pancreas, adrenals and kidneys appear grossly normal. The appendix is normal. There is no evidence of diverticulitis. Small inguinal hernias contain fat Small pericardial effusion IMPRESSION: Ill-defined 7 x 3 centimeter area of fluid within the left anterior subcutaneous fat of the pelvis lateral to the peritoneal dialysis catheter likely indicating a cellulitis. A discrete drainable fluid collection however is not seen. There is also marked skin thickening. Conclusions/Impression: A/ ESRD. Currently not on dialysis. Acidosis. HTN with CKD/ CHF. LE Edema, controlled. DM II with CKD. Anemia in CKD. MICHELLE/ Secondary HyperPTH. LLQ Abdominal Wall Abscess/ Cellulitis. MRSA. P/ Continue current POC and Medications. Increase Bicarb QID. Give Procrit. Follow up with Dr. Maynard for wound care. ID managing the abx. Continue abx. Renal dosing. Recommend the patient consider HD due to multiple reasons including a high infection risk with PD due to poor vision. PRBC transfusion as needed. No NSAIDs. AM labs. Daily weight.
[2019-05-10] MEDS ORDERED: EPOETIN ALFA 10,000 UNIT/ML VIAL SQ SCH (21:00)
--- NOTE | 2019-05-10 21:20 | PN ---
Date of Progress Note: 05/10/2019 History: Patient denies any acute events overnight. Medications: List reviewed. Physical Examination: Vital Signs: Temperature 97.9, heart rate 63, blood pressure 147/69, respirations 18, O2 100% on carolyn m air. General: Awake, alert, and oriented x3, not in any acute distress. Morbidly obese male. CV: S1, S2. Regular rate and rhythm. Peripheral pulses present. Respiratory: Moving air well bilaterally. No wheezing or stridor. Gastrointestinal: Abdomen is soft. Mild tenderness to palpation around the incision site. Wound VA C in place. PD dialysis catheter in place. Positive bowel sounds. Extremities: No clubbing, cyanosis. Trace pedal edema. Neurologic: Nonfocal. Laboratory Data: Sodium 142, potassium 4.5, chloride 110, CO2 of 19, BUN 83, creatinine 12.7, glucos e 100, calcium 8, phosphorus 7.9. WBC 7.4, H and H 7.8 and 23.5, platelets 275, neutrophils 73%. Bl ood cultures no growth to date. Wound cultures growing out MRSA. Assessment: A 48-year-old male with, 1.Abdominal wall abscess secondary to methicillin-resistant Staphylococcus aureus, status post incis ion and drainage. The patient will continue IV antibiotics for 2 weeks total. 2.End-stage renal disease, peritoneal dialysis catheter in place, however, not started on dialysis y et due to noncompliance. Appreciate Nephrology input. Monitor electrolytes. Avoid NSAIDs and nephr otoxins. 3.Acute on chronic anemia secondary to anemia of chronic disease and end-stage renal disease. H and H are stable. We will monitor and transfuse as needed. 4.Diabetes mellitus type 2 with end-stage renal disease. Continue sliding scale insulin. Monitor A ccu-Cheks. 5.Essential hypertension, stable. 6.Morbid obesity, BMI 41. 7.Diabetic retinopathy. Outpatient followup with Ophthalmology. Plan: DC with IV antibiotics as outpatient along with wound VAC. Awaiting followup arrangements as he does not have a primary. /LILY Voice ID: [id number] Report ID: [id number]
[2019-05-11] MEDS: CLINDAMYCIN PHOSPHATE 600 MG in NA CHLORIDE 0.9% 50 ML IV SCH ×3 (01:34→17:21)
[2019-05-11] MEDS: TRAMADOL 37.5mg/APAP 325mg PER TAB PO PRN ×2 (02:42→09:22)
[2019-05-11] MEDS ORDERED: HYDROMORPHONE HCL 0.5 MG/0.5 ML INJ IV ONE (03:26)
[2019-05-11] MEDS: ONDANSETRON 4 MG/2 ML VIAL IV PRN (05:54)
[2019-05-11 06:31] LABS: Absolute Lymphocytes (CBC) 0.8 K/uL (0.7-4.9); Basophils % 0.9 % (0-1.3); Hematocrit 22.9 % (39.6-49.0); Lymphocytes % 12.3 % (15.3-44.8); MPV 7.7 fL (7.6-11.3); RBC Red Blood Cell Count 2.74 M/uL (4.33-5.43)
[2019-05-11 06:49] LABS: Albumin 2.4 g/dL (3.4-5.0); Bilirubin Total 0.2 mg/dL (0.2-1.0); Potassium 4.5 mmol/L (3.5-5.1); Protein, Total 6.1 g/dL (6.4-8.2)
[2019-05-11] MEDS: HYDRALAZINE HCL 25 MG TABLET PO SCH ×3 (09:01→21:12)
[2019-05-11] MEDS: NIFEDIPINE XL 90 MG TABLET PO SCH ×2 (09:01→21:13)
[2019-05-11] MEDS: SEVELAMER CARBONATE 800 MG TABLET PO SCH ×3 (09:01→17:22)
[2019-05-11] MEDS: CALCITROL 0.25 MCG CAP PO SCH (09:01)
[2019-05-11] MEDS: SODIUM BICARB 325 MG TAB PO SCH ×4 (09:01→21:13)
[2019-05-11] MEDS: DOXAZOSIN 2 MG TAB PO SCH ×2 (09:01→21:13)
[2019-05-11] MEDS: ISOSORBIDE MONO SR 30 MG TAB PO SCH ×2 (09:01→21:15)
[2019-05-11] MEDS: VITAMIN D 5,000 UNIT CAP PO SCH (09:02)
[2019-05-11] MEDS: carvediloL 12.5 MG TAB PO SCH ×2 (09:02→21:14)
[2019-05-11] MEDS: MULTIVITAMINS,THERAPEUT 1 TAB PO SCH (09:02)
[2019-05-11] MEDS: HEPARIN 5000 UNIT/ML 1 ML VIAL SQ SCH ×2 (09:02→21:15)
--- NOTE | 2019-05-11 15:05 | PN ---
Date of Progress Note: 05/11/2019 Subjective: Patient is seen and examined chart reviewed and case discussed with RN. Patient denies any acute events overnight. Medications: List reviewed. Physical Examination: Vital Signs: Temperature 98.3, heart rate 65, blood pressure 173/71, respirations 18, O2 95% on room air. General: Awake, alert and oriented x3, not in any acute distress. Morbidly obese male. CV: S1, S2. No murmurs. Respiratory: Moving air well bilaterally. No wheezing or stridor. Gastrointestinal: Abdomen is sof t, nontender, nondistended. Positive bowel sounds. Extremities: No clubbing, cyanosis. Minimal pedal edema. Neurologic: Nonfocal. Skin: Has a wound VAC in place and peritoneal dialysis catheter in place in the abdomen. Laboratory Data: Sodium 141, potassium 4.5, chloride 110, CO2 21, BUN 84, creatinine 12.6, glucose 9 1, calcium 8.1, albumin 2.4. WBC 6.6, H and H 7.8 and 22.9, platelets 265. Neutrophils 76%. Wound cultures growing out MRSA. Assessment And Plan: This 48-year-old male with: 1.Abdominal wall abscess secondary to methicillin-resistant Staphylococcus aureus, status post incis ion and drainage. Continue with IV antibiotics for 2 weeks total. 2.End-stage renal disease, peritoneal dialysis catheter in place, not on dialysis due to noncomplian ce. Patient and Nephrology have discussed starting dialysis. Patient will need training as outpatie nt and then we will start on dialysis. Patient refusing hemodialysis. We will continue to monitor c reatinine level, avoid NSAIDs. 3.Acute on chronic anemia secondary anemia of chronic disease and end-stage renal disease. H and H are stable. Continue to monitor. Transfuse as needed for hemoglobin less than 7. 4.Diabetes mellitus type 2 with end-stage renal disease. Continue sliding scale insulin. Monitor A ccu-Cheks. 5.Essential hypertension, stable. 6.Morbid obesity, BMI 41. 7.Diabetic retinopathy. Outpatient followup plan, once IV antibiotics and wound VAC care has been e stablished. SA/MODL Voice ID: [id number] Report ID: [id number]
--- NOTE | 2019-05-11 20:27 | P.PN ---
Date of Service: 05/11/19 Vital Signs Temp Pulse Resp BP Pulse Ox 97.7 F 65 18 169/70 H 98 05/11/19 16:00 05/11/19 16:00 05/11/19 16:00 05/11/19 16:00 05/11/19 16:00 Medications Calcitriol (Rocaltrol) 0.5 mcg PO DAILY [facility] Stop: 06/02/19 09:01 Last Admin: 05/11/19 09:01 Dose: 0.5 mcg Carvedilol (Coreg) 12.5 mg PO BID [facility] Stop: 06/02/19 21:01 Last Admin: 05/11/19 09:02 Dose: 12.5 mg Cholecalciferol (Vitamin D 5,000 Iu Cap) 5,000 unit PO DAILY [facility] Stop: 06/02/19 09:01 Last Admin: 05/11/19 09:02 Dose: 5,000 unit Doxazosin Mesylate (Cardura) 2 mg PO BID [facility] Stop: 06/08/19 21:01 Last Admin: 05/11/19 09:01 Dose: 2 mg Heparin Sodium (Porcine) (Heparin 5,000 Units/Ml) 5,000 unit SQ Q12HR [facility] Stop: 06/08/19 09:01 Last Admin: 05/11/19 09:02 Dose: 5,000 unit Hydralazine HCl (Apresoline) 100 mg PO TID [facility] Stop: 06/03/19 09:01 Last Admin: 05/11/19 14:00 Dose: 100 mg Clindamycin Phosphate 600 mg/ (Sodium Chloride) 54 mls @ 100 mls/hr IV Q8HR [facility] ; Protocol Stop: 06/02/19 01:01 Last Admin: 05/11/19 17:21 Dose: 54 mls Vancomycin HCl (Vancomycin 1 Gm/250 Ml Ns Ivpb) 1 gm in 250 mls @ 150 mls/hr IV Q72H [facility] Stop: 06/09/19 09:01 Last Admin: 05/10/19 09:55 Dose: 250 mls Isosorbide Mononitrate (Imdur) 60 mg PO BID [facility] Stop: 06/05/19 21:01 Last Admin: 05/11/19 09:01 Dose: 60 mg Nifedipine (Procardia Xl) 90 mg PO BID [facility] Stop: 06/03/19 09:01 Last Admin: 05/11/19 09:01 Dose: 90 mg Ondansetron HCl (Zofran) 4 mg IV Q6HP PRN PRN Reason: NAUSEA / VOMITING Stop: 06/01/19 20:40 Last Admin: 05/11/19 05:54 Dose: 4 mg Sevelamer Carbonate (Renvela) 800 mg PO TIDWM [facility] Stop: 06/02/19 08:01 Last Admin: 05/11/19 17:22 Dose: 800 mg Sodium Bicarbonate (Sodium Bicarb 325 Mg) 650 mg PO QID [facility] Stop: 06/09/19 21:01 Last Admin: 05/11/19 17:22 Dose: 650 mg Sodium Chloride (Normal Saline Flush) 10 ml IV BID [facility] Stop: 06/01/19 21:01 Last Admin: 05/11/19 09:02 Dose: 10 ml Tramadol/Acetaminophen (Ultracet 37.5 Mg/Apap 325 Mg Per Tab) 1 tab PO Q6H PRN PRN Reason: Pain scale 5-7 (Moderate) Stop: 06/08/19 19:13 Last Admin: 05/11/19 09:22 Dose: 1 tab Vitamin B Complex/Vit C/Folic Acid (Nephro-Norberto) 1 tab PO DAILY [facility] Stop: 06/02/19 09:01 Last Admin: 05/11/19 09:02 Dose: 1 tab Microbiology Results 05/02/19 16:00 Blood - Blood Aerobic Blood Culture - Final No growth in 5 days. 05/02/19 16:00 Blood - Blood Anaerobic Blood Culture - Final No growth in 5 days. 05/02/19 15:45 Blood - Blood Aerobic Blood Culture - Final No growth in 5 days. 05/02/19 15:45 Blood - Blood Anaerobic Blood Culture - Final No growth in 5 days. Assessment/ Plan: Nephrology CPS stable without CP or SOB. No acute events overnight. Doing well. Vitals, medications, blood work and imaging reviewed in the chart. General: In no apparent distress, Oriented x3, Cooperative HEENT: Atraumatic Neck: Supple Respiratory: Clear to auscultation bilaterally Cardiovascular: No edema, Regular rate/rhythm, No rubs Gastrointestinal: Soft and benign, Non-distended, No rebound Musculoskeletal: No clubbing, No contractures Integumentary: No rashes, No cyanosis, Skin breakdown, Skin lesion Neurological: Normal speech Urinary: PD Dialysis catheter Blood work reviewed in the chart. Hgb 6; Cr 12.6 Imagings Data: EXAM DESCRIPTION: CT - Abdomen Pelvis Wo Contrast - 05/02/2019 5:45 pm CLINICAL HISTORY: Abdominal pain COMPARISON: February 2019 TECHNIQUE: Computed axial tomography of the abdomen and pelvis was obtained. Oral contrast given. IV contrast not requested All CT scans are performed using dose optimization technique as appropriate and may include automated exposure control or mA/KV adjustment according to patient size. FINDINGS: The evaluation of solid organs, and vessels is limited secondary to the lack of contrast administration. Marked skin thickening surrounds the peritoneal dialysis catheter within the left anterior subcutaneous fat of the pelvis. Ill-defined fluid is present within the subcutaneous tissues measuring approximately 7 x 3 centimeters. The tip of the catheter lies within the pelvis. No pelvic abscess noted. The liver, spleen, pancreas, adrenals and kidneys appear grossly normal. The appendix is normal. There is no evidence of diverticulitis. Small inguinal hernias contain fat Small pericardial effusion IMPRESSION: Ill-defined 7 x 3 centimeter area of fluid within the left anterior subcutaneous fat of the pelvis lateral to the peritoneal dialysis catheter likely indicating a cellulitis. A discrete drainable fluid collection however is not seen. There is also marked skin thickening. Conclusions/Impression: A/ ESRD. Currently not on dialysis. Acidosis. HTN with CKD/ CHF. LE Edema, controlled. DM II with CKD. Anemia in CKD. MICHELLE/ Secondary HyperPTH. LLQ Abdominal Wall Abscess/ Cellulitis. MRSA. P/ Continue current POC and Medications. Continue Bicab. Continue Procrit. Follow up with Dr. Maynard for wound care. ID managing the abx. Continue abx. Renal dosing. Recommend the patient consider HD due to multiple reasons including a high infection risk with PD due to poor vision. PRBC transfusion as needed. No NSAIDs. AM labs. Daily weight.
[2019-05-12] MEDS: CLINDAMYCIN PHOSPHATE 600 MG in NA CHLORIDE 0.9% 50 ML IV SCH ×3 (00:01→16:40)
[2019-05-12 06:31] LABS: Absolute Lymphocytes (CBC) 0.7 K/uL (0.7-4.9); Basophils % 0.9 % (0-1.3); Hematocrit 24.4 % (39.6-49.0); Lymphocytes % 10.2 % (15.3-44.8); MPV 7.9 fL (7.6-11.3); RBC Red Blood Cell Count 2.89 M/uL (4.33-5.43)
[2019-05-12 06:59] LABS: Albumin 2.5 g/dL (3.4-5.0); Bilirubin Total 0.2 mg/dL (0.2-1.0); Potassium 4.9 mmol/L (3.5-5.1); Protein, Total 6.6 g/dL (6.4-8.2)
[2019-05-12] MEDS: SODIUM BICARB 325 MG TAB PO SCH ×4 (09:08→22:13)
[2019-05-12] MEDS: CALCITROL 0.25 MCG CAP PO SCH (09:08)
[2019-05-12] MEDS: HYDRALAZINE HCL 25 MG TABLET PO SCH ×3 (09:08→22:14)
[2019-05-12] MEDS: SEVELAMER CARBONATE 800 MG TABLET PO SCH ×3 (09:08→16:11)
[2019-05-12] MEDS: HEPARIN 5000 UNIT/ML 1 ML VIAL SQ SCH ×2 (09:09→22:15)
[2019-05-12] MEDS: VITAMIN D 5,000 UNIT CAP PO SCH (09:09)
[2019-05-12] MEDS: carvediloL 12.5 MG TAB PO SCH ×2 (09:09→22:15)
[2019-05-12] MEDS: ISOSORBIDE MONO SR 30 MG TAB PO SCH ×2 (09:09→22:14)
[2019-05-12] MEDS: MULTIVITAMINS,THERAPEUT 1 TAB PO SCH (09:09)
[2019-05-12] MEDS: NIFEDIPINE XL 90 MG TABLET PO SCH ×2 (09:09→22:14)
[2019-05-12] MEDS: DOXAZOSIN 2 MG TAB PO SCH ×2 (09:09→22:15)
--- NOTE | 2019-05-12 13:45 | P.PN ---
Date of Service: 05/12/19 Vital Signs Temp Pulse Resp BP Pulse Ox 97.8 F 65 18 146/75 H 95 05/12/19 08:00 05/12/19 08:00 05/12/19 08:00 05/12/19 08:00 05/12/19 08:00 Medications Calcitriol (Rocaltrol) 0.5 mcg PO DAILY [facility] Stop: 06/02/19 09:01 Last Admin: 05/12/19 09:08 Dose: 0.5 mcg Carvedilol (Coreg) 12.5 mg PO BID [facility] Stop: 06/02/19 21:01 Last Admin: 05/12/19 09:09 Dose: 12.5 mg Cholecalciferol (Vitamin D 5,000 Iu Cap) 5,000 unit PO DAILY [facility] Stop: 06/02/19 09:01 Last Admin: 05/12/19 09:09 Dose: 5,000 unit Doxazosin Mesylate (Cardura) 2 mg PO BID [facility] Stop: 06/08/19 21:01 Last Admin: 05/12/19 09:09 Dose: 2 mg Heparin Sodium (Porcine) (Heparin 5,000 Units/Ml) 5,000 unit SQ Q12HR [facility] Stop: 06/08/19 09:01 Last Admin: 05/12/19 09:09 Dose: 5,000 unit Hydralazine HCl (Apresoline) 100 mg PO TID [facility] Stop: 06/03/19 09:01 Last Admin: 05/12/19 12:52 Dose: 100 mg Clindamycin Phosphate 600 mg/ (Sodium Chloride) 54 mls @ 100 mls/hr IV Q8HR [facility] ; Protocol Stop: 06/02/19 01:01 Last Admin: 05/12/19 09:09 Dose: 54 mls Vancomycin HCl (Vancomycin 1 Gm/250 Ml Ns Ivpb) 1 gm in 250 mls @ 150 mls/hr IV Q72H [facility] Stop: 06/09/19 09:01 Last Admin: 05/10/19 09:55 Dose: 250 mls Isosorbide Mononitrate (Imdur) 60 mg PO BID [facility] Stop: 06/05/19 21:01 Last Admin: 05/12/19 09:09 Dose: 60 mg Nifedipine (Procardia Xl) 90 mg PO BID [facility] Stop: 06/03/19 09:01 Last Admin: 05/12/19 09:09 Dose: 90 mg Ondansetron HCl (Zofran) 4 mg IV Q6HP PRN PRN Reason: NAUSEA / VOMITING Stop: 06/01/19 20:40 Last Admin: 05/11/19 05:54 Dose: 4 mg Sevelamer Carbonate (Renvela) 800 mg PO TIDWM [facility] Stop: 06/02/19 08:01 Last Admin: 05/12/19 12:52 Dose: 800 mg Sodium Bicarbonate (Sodium Bicarb 325 Mg) 650 mg PO QID [facility] Stop: 06/09/19 21:01 Last Admin: 05/12/19 12:52 Dose: 650 mg Sodium Chloride (Normal Saline Flush) 10 ml IV BID [facility] Stop: 06/01/19 21:01 Last Admin: 05/12/19 09:10 Dose: 10 ml Tramadol/Acetaminophen (Ultracet 37.5 Mg/Apap 325 Mg Per Tab) 1 tab PO Q6H PRN PRN Reason: Pain scale 5-7 (Moderate) Stop: 06/08/19 19:13 Last Admin: 05/11/19 09:22 Dose: 1 tab Vitamin B Complex/Vit C/Folic Acid (Nephro-Norberto) 1 tab PO DAILY [facility] Stop: 06/02/19 09:01 Last Admin: 05/12/19 09:09 Dose: 1 tab Microbiology Results 05/02/19 16:00 Blood - Blood Aerobic Blood Culture - Final No growth in 5 days. 05/02/19 16:00 Blood - Blood Anaerobic Blood Culture - Final No growth in 5 days. 05/02/19 15:45 Blood - Blood Aerobic Blood Culture - Final No growth in 5 days. 05/02/19 15:45 Blood - Blood Anaerobic Blood Culture - Final No growth in 5 days. Assessment/ Plan: Nephrology CPS stable without CP or SOB. No acute events overnight. Doing well. Vitals, medications, blood work and imaging reviewed in the chart. General: In no apparent distress, Oriented x3, Cooperative HEENT: Atraumatic Neck: Supple Respiratory: Clear to auscultation bilaterally Cardiovascular: No edema, Regular rate/rhythm, No rubs Gastrointestinal: Soft and benign, Non-distended, No rebound Musculoskeletal: No clubbing, No contractures Integumentary: No rashes, No cyanosis, Skin breakdown, Skin lesion Neurological: Normal speech Urinary: PD Dialysis catheter Blood work reviewed in the chart. Hgb 6; Cr 12.6 Imagings Data: EXAM DESCRIPTION: CT - Abdomen Pelvis Wo Contrast - 05/02/2019 5:45 pm CLINICAL HISTORY: Abdominal pain COMPARISON: February 2019 TECHNIQUE: Computed axial tomography of the abdomen and pelvis was obtained. Oral contrast given. IV contrast not requested All CT scans are performed using dose optimization technique as appropriate and may include automated exposure control or mA/KV adjustment according to patient size. FINDINGS: The evaluation of solid organs, and vessels is limited secondary to the lack of contrast administration. Marked skin thickening surrounds the peritoneal dialysis catheter within the left anterior subcutaneous fat of the pelvis. Ill-defined fluid is present within the subcutaneous tissues measuring approximately 7 x 3 centimeters. The tip of the catheter lies within the pelvis. No pelvic abscess noted. The liver, spleen, pancreas, adrenals and kidneys appear grossly normal. The appendix is normal. There is no evidence of diverticulitis. Small inguinal hernias contain fat Small pericardial effusion IMPRESSION: Ill-defined 7 x 3 centimeter area of fluid within the left anterior subcutaneous fat of the pelvis lateral to the peritoneal dialysis catheter likely indicating a cellulitis. A discrete drainable fluid collection however is not seen. There is also marked skin thickening. Conclusions/Impression: A/ ESRD. Currently not on dialysis. Acidosis. HTN with CKD/ CHF. LE Edema, controlled. DM II with CKD. Anemia in CKD. MICHELLE/ Secondary HyperPTH. LLQ Abdominal Wall Abscess/ Cellulitis. MRSA. P/ Continue current POC and Medications. Continue Bicab. Continue Procrit. Follow up with Dr. Maynard for wound care. Continue abx. Renal dosing. Recommend the patient consider HD due to multiple reasons including a high infection risk with PD due to poor vision. Mr. Ramon declines HD at this time and plans to start PD in the future. PRBC transfusion as needed. No NSAIDs. AM labs. Daily weight.
--- NOTE | 2019-05-12 15:34 | PN ---
Date of Progress Note: 05/12/2019 Subjective: Patient is seen and examined, chart was reviewed, and case was discussed with RN. Still awaiting set-up for wound VAC maintenance. Medication List: Reviewed. Physical Examination: Vital Signs: Temperature 98.6, heart rate 66, blood pressure 141/67, respirations 18, O2 92% on room air. General: Awake, alert, oriented x3, not in any acute distress. Morbidly obese male. CV: S1, S2. Regular rate and rhythm. Peripheral pulses present. Respiratory: Moving air well bilaterally. No wheezing or stridor. No use of accessory muscles. Gastrointestinal: Abdomen is soft, nontender, nondistended. Positive bowel sounds. Peritoneal dial ysis catheter in place. Wound VAC in place. Extremities: No clubbing, cyanosis. Trace pedal edema. Neurologic: Nonfocal. Laboratory Data: Sodium 140, potassium 4.9, chloride 109, CO2 22, BUN 82, creatinine 12.6, glucose 9 4, calcium 8.5. WBC 7.1, H and H 8.1 and 24.4, platelets 272. Wound culture is growing out MRSA. Assessment: A 48-year-old male with: 1.Abdominal wall abscess secondary to methicillin-resistant Staphylococcus aureus, status post I and D. Currently, wound VAC is in place. Continue with IV antibiotics for 2 weeks total. 2.End-stage renal disease. Peritoneal dialysis catheter in place, however, not on dialysis at this time. Patient is to follow up with Nephrology for training and then to start peritoneal dialysis as an outpatient. Refused hemodialysis. We will continue to monitor creatinine level, electrolytes. A void NSAIDs. Appreciate Nephrology input. 3.Biddn-bu-zsildxg anemia secondary to anemia of chronic disease and end-stage renal disease. We wi ll monitor H and H, currently stable. Transfuse for hemoglobin less than 7. 4.Diabetes mellitus type 2, end-stage renal disease. Continue sliding scale insulin. Monitor Accu- Cheks. 5.Essential hypertension, stable. 6.Morbid obesity. BMI 41. 7.Diabetic retinopathy. Outpatient followup. Plan: Discharge once IV antibiotics and wound VAC care have been set up. /LILY Voice ID: [id number] Report ID: [id number]
[2019-05-13] MEDS: CLINDAMYCIN PHOSPHATE 600 MG in NA CHLORIDE 0.9% 50 ML IV SCH ×2 (00:42→09:00)
[2019-05-13 05:14] VITALS: O2SAT 97
[2019-05-13] MEDS: VANCOMYCIN/NS 1 gm 1 GM/250 ML BAG IV SCH (09:00)
[2019-05-13] MEDS: HEPARIN 5000 UNIT/ML 1 ML VIAL SQ SCH ×2 (09:01→21:00)
[2019-05-13] MEDS: DOXAZOSIN 2 MG TAB PO SCH (09:01)
[2019-05-13] MEDS: HYDRALAZINE HCL 25 MG TABLET PO SCH ×3 (09:02→20:56)
[2019-05-13] MEDS: VITAMIN D 5,000 UNIT CAP PO SCH (09:02)
[2019-05-13] MEDS: CALCITROL 0.25 MCG CAP PO SCH (09:02)
[2019-05-13] MEDS: NIFEDIPINE XL 90 MG TABLET PO SCH ×2 (09:02→20:56)
[2019-05-13] MEDS: MULTIVITAMINS,THERAPEUT 1 TAB PO SCH (09:02)
[2019-05-13] MEDS: carvediloL 12.5 MG TAB PO SCH ×2 (09:03→20:57)
[2019-05-13] MEDS: ISOSORBIDE MONO SR 30 MG TAB PO SCH ×2 (09:03→21:00)
[2019-05-13] MEDS: SEVELAMER CARBONATE 800 MG TABLET PO SCH ×3 (09:03→16:30)
[2019-05-13] MEDS: SODIUM BICARB 325 MG TAB PO SCH ×4 (09:06→20:56)
--- NOTE | 2019-05-13 13:25 | P.PN ---
Date of Service: 05/13/19 Vital Signs Temp Pulse Resp BP Pulse Ox 97.7 F 72 15 152/79 H 97 05/13/19 08:00 05/13/19 09:03 05/13/19 08:00 05/13/19 09:03 05/13/19 08:00 Medications Calcitriol (Rocaltrol) 0.5 mcg PO DAILY [facility] Stop: 06/02/19 09:01 Last Admin: 05/13/19 09:02 Dose: 0.5 mcg Carvedilol (Coreg) 12.5 mg PO BID [facility] Stop: 06/02/19 21:01 Last Admin: 05/13/19 09:03 Dose: 12.5 mg Cholecalciferol (Vitamin D 5,000 Iu Cap) 5,000 unit PO DAILY [facility] Stop: 06/02/19 09:01 Last Admin: 05/13/19 09:02 Dose: 5,000 unit Doxazosin Mesylate (Cardura) 4 mg PO BID [facility] Stop: 06/12/19 21:01 Heparin Sodium (Porcine) (Heparin 5,000 Units/Ml) 5,000 unit SQ Q12HR [facility] Stop: 06/08/19 09:01 Last Admin: 05/13/19 09:01 Dose: 5,000 unit Hydralazine HCl (Apresoline) 100 mg PO TID [facility] Stop: 06/03/19 09:01 Last Admin: 05/13/19 09:02 Dose: 100 mg Linezolid (Zyvox 600 Mg/300 Ml Ivpb (Premix)) 600 mg in 300 mls @ 300 mls/hr IV Q12HR [facility]; Protocol Stop: 06/12/19 21:01 Isosorbide Mononitrate (Imdur) 60 mg PO BID [facility] Stop: 06/05/19 21:01 Last Admin: 05/13/19 09:03 Dose: 60 mg Nifedipine (Procardia Xl) 90 mg PO BID [facility] Stop: 06/03/19 09:01 Last Admin: 05/13/19 09:02 Dose: 90 mg Ondansetron HCl (Zofran) 4 mg IV Q6HP PRN PRN Reason: NAUSEA / VOMITING Stop: 06/01/19 20:40 Last Admin: 05/11/19 05:54 Dose: 4 mg Sevelamer Carbonate (Renvela) 800 mg PO TIDWM [facility] Stop: 06/02/19 08:01 Last Admin: 05/13/19 09:03 Dose: 800 mg Sodium Bicarbonate (Sodium Bicarb 325 Mg) 650 mg PO QID [facility] Stop: 06/09/19 21:01 Last Admin: 05/13/19 09:06 Dose: 650 mg Sodium Chloride (Normal Saline Flush) 10 ml IV BID [facility] Stop: 06/01/19 21:01 Last Admin: 05/13/19 09:04 Dose: 10 ml Tramadol/Acetaminophen (Ultracet 37.5 Mg/Apap 325 Mg Per Tab) 1 tab PO Q6H PRN PRN Reason: Pain scale 5-7 (Moderate) Stop: 06/08/19 19:13 Last Admin: 05/11/19 09:22 Dose: 1 tab Vitamin B Complex/Vit C/Folic Acid (Nephro-Norberto) 1 tab PO DAILY [facility] Stop: 06/02/19 09:01 Last Admin: 05/13/19 09:02 Dose: 1 tab Microbiology Results 05/02/19 16:00 Blood - Blood Aerobic Blood Culture - Final No growth in 5 days. 05/02/19 16:00 Blood - Blood Anaerobic Blood Culture - Final No growth in 5 days. 05/02/19 15:45 Blood - Blood Aerobic Blood Culture - Final No growth in 5 days. 05/02/19 15:45 Blood - Blood Anaerobic Blood Culture - Final No growth in 5 days. Assessment/ Plan: Nephrology CPS stable without CP or SOB. No acute events overnight. Doing well. Vitals, medications, blood work and imaging reviewed in the chart. General: In no apparent distress, Oriented x3, Cooperative HEENT: Atraumatic Neck: Supple Respiratory: Clear to auscultation bilaterally Cardiovascular: No edema, Regular rate/rhythm, No rubs Gastrointestinal: Soft and benign, Non-distended, No rebound Musculoskeletal: No clubbing, No contractures Integumentary: No rashes, No cyanosis, Skin breakdown, Skin lesion Neurological: Normal speech Urinary: PD Dialysis catheter Blood work reviewed in the chart. Hgb 6; Cr 12.6 Imagings Data: EXAM DESCRIPTION: CT - Abdomen Pelvis Wo Contrast - 05/02/2019 5:45 pm CLINICAL HISTORY: Abdominal pain COMPARISON: February 2019 TECHNIQUE: Computed axial tomography of the abdomen and pelvis was obtained. Oral contrast given. IV contrast not requested All CT scans are performed using dose optimization technique as appropriate and may include automated exposure control or mA/KV adjustment according to patient size. FINDINGS: The evaluation of solid organs, and vessels is limited secondary to the lack of contrast administration. Marked skin thickening surrounds the peritoneal dialysis catheter within the left anterior subcutaneous fat of the pelvis. Ill-defined fluid is present within the subcutaneous tissues measuring approximately 7 x 3 centimeters. The tip of the catheter lies within the pelvis. No pelvic abscess noted. The liver, spleen, pancreas, adrenals and kidneys appear grossly normal. The appendix is normal. There is no evidence of diverticulitis. Small inguinal hernias contain fat Small pericardial effusion IMPRESSION: Ill-defined 7 x 3 centimeter area of fluid within the left anterior subcutaneous fat of the pelvis lateral to the peritoneal dialysis catheter likely indicating a cellulitis. A discrete drainable fluid collection however is not seen. There is also marked skin thickening. Conclusions/Impression: A/ ESRD. Currently not on dialysis. Acidosis. HTN with CKD/ CHF. LE Edema, controlled. DM II with CKD. Anemia in CKD. MICHELLE/ Secondary HyperPTH. LLQ Abdominal Wall Abscess/ Cellulitis. MRSA. P/ Continue current POC and Medications. Continue Bicab. Continue Procrit. Follow up with Dr. Maynard for wound care. Continue abx. Renal dosing. Recommend the patient consider HD due to multiple reasons including a high infection risk with PD due to poor vision. Mr. Ramon declines HD at this time and plans to start PD in the future. PRBC transfusion as needed. No NSAIDs. AM labs. Daily weight.
--- NOTE | 2019-05-13 14:35 | P.PN ---
Subjective Date of Service: 05/13/19 Chief Complaint: abdominal wall abscess Patient seen and examined at bedside with RN. Chart reviewed. Case discussed with general surgery, nephrology, oracle forms developer at this time. No complaints to offer overall. Denies having any fever chills nausea vomiting. Review of Systems 10-point ROS is otherwise unremarkable Physical Examination - Vital Signs Temperature: 98.1 F Blood Pressure: 168/62 Pulse: 66 Respirations: 15 Pulse Ox (%): 97 - Physical Exam General: Alert, In no apparent distress HEENT: Atraumatic, PERRLA, EOMI Neck: Supple, JVD not distended Respiratory: Clear to auscultation bilaterally, Normal air movement Cardiovascular: Regular rate/rhythm, Normal S1 S2 Gastrointestinal: Normal bowel sounds, No tenderness, Other (Peritoneal dialysis catheter) Musculoskeletal: No tenderness Integumentary: No rashes Neurological: Normal speech, Normal tone, Normal affect Lymphatics: No axilla or inguinal lymphadenopathy - Studies Medications List Reviewed: Yes Assessment And Plan - Plan Assessment and plan 1.Abdominal wall abscess secondary to methicillin-resistant Staphylococcus aureus, status post I and D. Currently, wound VAC is in place. Continue with IV antibiotics for 2 weeks total. Changed IV vancomycin to IVs Zyvox will get PICC line in place. 2.End-stage renal disease. Peritoneal dialysis catheter in place, however, not on dialysis at this time. Patient is to follow up with Nephrology for training and then to start peritoneal dialysis as an outpatient. Refused hemodialysis. We will continue to monitor creatinine level, electrolytes. Avoid NSAIDs. Appreciate Nephrology input. 3.[id number] anemia secondary to anemia of chronic disease and end-stage renal disease. We will monitor H and H, currently stable. Transfuse for hemoglobin less than 7. 4.Diabetes mellitus type 2, end-stage renal disease. Continue sliding scale insulin. Monitor Accu-Cheks. 5.Essential hypertension, stable. 6.Morbid obesity. BMI 41. 7.Diabetic retinopathy. Outpatient followup. Plan: Discharge once IV antibiotics setup with the outpatient Day Surgery and patient to follow up on Monday with the wound healing center. Discharge Plan: Home Plan to discharge in: Greater than 2 days - Code Status/Comfort Care Code Status Assessed: Yes Critical Care: No
[2019-05-13] MEDS: EPOETIN ALFA-EPBX 10,000 UNIT/ML VIAL SQ SCH (14:50)
[2019-05-13] MEDS: DOXAZOSIN 4 MG TAB PO SCH (20:57)
[2019-05-14] MEDS: TRAMADOL 37.5mg/APAP 325mg PER TAB PO PRN (01:03)
[2019-05-14] MEDS ORDERED: DOXAZOSIN 2 MG TAB ONE (08:05)
[2019-05-14] MEDS: DOXAZOSIN 4 MG TAB PO SCH (09:00)
[2019-05-14] MEDS ORDERED: VANCOMYCIN/NS 1 gm 1 GM/250 ML BAG IV SCH (09:00)
[2019-05-14] MEDS ORDERED: LINEZOLID 600 MG IVPB 600 MG/300 ML BAG IV SCH (09:00)
--- NOTE | 2019-05-14 09:01 | PN ---
Subjective: Patient lying in bed. No new acute event. Chart reviewed. Objective: Vital Signs: Temperature 98, pulse 66, respirations 15, blood pressure 168/62. Lungs: Clear to auscultation. Heart: S1, S2 regular. Abdomen: Soft. Bowel sounds present. Wound VAC was removed and good granulation tissue. No necrot ic tissue noted. Laboratory Data: WBC 7.1, hemoglobin 8.1, platelets are 272. Sodium 140, potassium 4.9, chloride 10 9, bicarb 22, BUN 82, creatinine 12.6, glucose is 94. Assessment And Plan: Abdominal wound, status post abscess, I and D. Patient is doing well. Continu e Zyvox for methicillin-resistant Staphylococcus aureus infection of abdominal wound. Continue suppo rtive care and wound care. NF/MODL Voice ID: [id number] Report ID: [id number]
[2019-05-14] MEDS: SODIUM BICARB 325 MG TAB PO SCH ×2 (09:05→13:12)
[2019-05-14] MEDS: MULTIVITAMINS,THERAPEUT 1 TAB PO SCH (09:06)
[2019-05-14] MEDS: CALCITROL 0.25 MCG CAP PO SCH (09:06)
[2019-05-14] MEDS: HYDRALAZINE HCL 25 MG TABLET PO SCH ×2 (09:06→13:12)
[2019-05-14] MEDS: VITAMIN D 5,000 UNIT CAP PO SCH (09:06)
[2019-05-14] MEDS: carvediloL 12.5 MG TAB PO SCH (09:06)
[2019-05-14] MEDS: SEVELAMER CARBONATE 800 MG TABLET PO SCH ×2 (09:06→13:12)
[2019-05-14] MEDS: NIFEDIPINE XL 90 MG TABLET PO SCH (09:08)
[2019-05-14] MEDS: ISOSORBIDE MONO SR 30 MG TAB PO SCH (09:08)
[2019-05-14] MEDS: HEPARIN 5000 UNIT/ML 1 ML VIAL SQ SCH (09:10)
[2019-05-14 14:00] VITALS: BP 162/70; TEMP 97.8
[2019-05-14] MEDS: EPOETIN ALFA-EPBX 10,000 UNIT/ML VIAL SQ SCH (14:08)
--- NOTE | 2019-05-14 15:25 | P.DS ---
Admission Date: 05/02/19 Discharge Date: 05/14/19 Disposition: ROUTINE DISCHARGE Discharge Condition: FAIR Reason for Admission: abdominal wall abscess Consultations: General Surgery Procedures: None Brief History of Present Illness: Patient is a 48-year-old gentleman who comes into the hospital with an abdominal wall abscess. Patient has a history of end-stage renal disease in the lung on hemodialysis. Patient also has hypertension. Patient came to the emergency room for further evaluation. In the ER patient is had a small incision of pain and some purulent drainage was released. They spoke to General surgery and patient was admitted to the hospital. Patient is also on peritoneal dialysis who will consult Nephrology. Patient will be admitted to the hospital for further evaluation. Will also get his blood pressure under control while he is here. Recheck labs in the morning as well. Allergies Hospital Course: Discharge diagnosis 1. Abdominal wall abscess secondary to MR SA 2. End-stage renal disease not on hemodialysis or peritoneal dialysis 3. Acute on chronic anemia secondary to chronic kidney disease 4. 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 Essential hypertension 6. Morbid obesity with a BMI of 41 7. Diabetic retinopathy 8. Noncompliance with medication Hospital Course Overall during the hospital stay patient remained stable. Patient was initially seen in the ER for abdominal wall abscess was drained initially in the ER. General surgery was consulted here in the hospital. Patient was started on IV antibiotics along with blood culture and wound cultures were collected. General surgery took the patient for incision and drainage. After which wound VAC was placed. Patient was to continue taking antibiotics. Wound cultures were positive for MRSA. Initially patient was started on IV vancomycin while here in the hospital. However it needed to be adjusted very frequently due to acute kidney injury on chronic kidney disease. Patient was then switched over to IV Zyvox for MRSA coverage and minimize acute injury to the kidney. Given the noncompliance history of patient a PICC line was not placed. However patient was arranged to receive his IV antibiotics at the day surgery twice daily for the next 7 days. And patient will be followed up at the wound healing center every Monday with Dr. Maynard for his wound VAC. Patient while here in the hospital was also found to have acute kidney injury on end-stage renal disease. Patient denied hemodialysis. Nephrology was consulted. Patient does have peritoneal dialysis catheter in place however is currently not getting dialyze. According to patient patient is getting trained for peritoneal dialysis as outpatient once he strained he should be able to do it at home. Patient was educated extensively on the need to start hemodialysis however he continued to refuse and stated that he will continue with his current management. Nephrology also educated patient extensively on the need to get hemodialysis. Patient continues to refuse while here in the hospital. At that time patient was then cleared to discharge home when IV abx was setup outpatient Day Surgery and Wound healing center. Vital Signs/Physical Exam: Temp Pulse Resp BP Pulse Ox 97.8 F 64 19 162/70 H 98 05/14/19 12:00 05/14/19 12:00 05/14/19 12:00 05/14/19 12:00 05/14/19 12:00 General: Alert, In no apparent distress HEENT: Atraumatic, PERRLA, EOMI Neck: Supple, JVD not distended Respiratory: Clear to auscultation bilaterally, Normal air movement Cardiovascular: Regular rate/rhythm, Normal S1 S2 Gastrointestinal: Normal bowel sounds, No tenderness Musculoskeletal: No tenderness Integumentary: No rashes Neurological: Normal speech, Normal tone, Normal affect Lymphatics: No axilla or inguinal lymphadenopathy Laboratory Data at Discharge: WBC 7.1 K/uL (4.3-10.9) 05/12/19 05:16 Hgb 8.1 g/dL (13.6-17.9) L 05/12/19 05:16 Hct 24.4 % (39.6-49.0) L 05/12/19 05:16 Plt Count 272 K/uL (152-406) 05/12/19 05:16 PT 14.0 SECONDS (9.5-12.5) H 05/04/19 17:50 INR 1.19 05/04/19 17:50 APTT 31.5 SECONDS (24.3-36.9) 05/04/19 17:50 Sodium 140 mmol/L (136-145) 05/12/19 05:16 Potassium 4.9 mmol/L (3.5-5.1) 05/12/19 05:16 BUN 82 mg/dL (7-18) H 05/12/19 05:16 Creatinine 12.60 mg/dL (0.55-1.3) H* 05/12/19 05:16 Glucose 94 mg/dL (74-106) 05/12/19 05:16 Uric Acid 9.5 mg/dL (3.5-7.2) H 05/03/19 05:10 Phosphorus 7.9 mg/dL (2.5-4.9) H 05/10/19 05:10 Magnesium 1.7 mg/dL (1.8-2.4) L 05/03/19 05:10 Total Bilirubin 0.2 mg/dL (0.2-1.0) 05/12/19 05:16 AST 7 U/L (15-37) L 05/12/19 05:16 ALT 12 U/L (12-78) 05/12/19 05:16 Alkaline Phosphatase 54 U/L (45-117) 05/12/19 05:16 Lipase 44 U/L (73-393) L 05/02/19 15:45 Home Medications: Hydralazine HCl 50 mg PO TID 05/03/19 Nifedipine [Nifedipine ER] 60 mg PO BID 05/03/19 carvediloL [Coreg*] 12.5 mg PO BID 05/03/19 Calcitrol [Rocaltrol*] 0.5 mcg PO DAILY #30 cap 05/14/19 Doxazosin [Cardura*] 4 mg PO BID #60 tab 05/14/19 Na Bicarb Tab [Sodium Bicarb 325 MG Tab*] 650 mg PO QID #120 tab 05/14/19 Sevelamer Carbonate [Renvela*] 800 mg PO TIDWM #120 tablet 05/14/19 New Medications: Calcitrol [Rocaltrol*] 0.5 mcg PO DAILY #30 cap Doxazosin [Cardura*] 4 mg PO BID #60 tab Na Bicarb Tab [Sodium Bicarb 325 MG Tab*] 650 mg PO QID #120 tab Sevelamer Carbonate [Renvela*] 800 mg PO TIDWM #120 tablet Diet: Regular Activity: Ad ivana Followup: Ambrosio Ram MD [ACTIVE - CAN ADMIT] -
--- NOTE | 2019-05-14 17:29 | PN ---
Subjective: Patient lying in bed. No new acute event. Chart reviewed. Objective: Vital Signs: Temperature 97, pulse 66, respirations 18, blood pressure 147/65. Lungs: Clear to auscultation. Heart: S1, S2 regular. Abdomen: Soft, nontender. Bowel sounds present. Extremities: Trace edema. Wound VAC in place. Medications: Currently on Zyvox and wound VAC. Assessment And Plan: End-stage renal disease, on peritoneal dialysis, status post abdominal abscess debridement with cultures growing MRSA. Continue Zyvox and continue antibiotic. We will follow the patient as needed. NF/MODL Voice ID: [id number] Report ID: [id number]
--- NOTE | 2019-05-14 19:19 | P.PN ---
Date of Service: 05/14/19 Vital Signs Temp Pulse Resp BP Pulse Ox 97.8 F 64 19 162/70 H 98 05/14/19 12:00 05/14/19 12:00 05/14/19 12:00 05/14/19 12:00 05/14/19 12:00 Microbiology Results 05/02/19 16:00 Blood - Blood Aerobic Blood Culture - Final No growth in 5 days. 05/02/19 16:00 Blood - Blood Anaerobic Blood Culture - Final No growth in 5 days. 05/02/19 15:45 Blood - Blood Aerobic Blood Culture - Final No growth in 5 days. 05/02/19 15:45 Blood - Blood Anaerobic Blood Culture - Final No growth in 5 days. Assessment/ Plan: Nephrology CPS stable without CP or SOB. No acute events overnight. Doing well. Vitals, medications, blood work and imaging reviewed in the chart. General: In no apparent distress, Oriented x3, Cooperative HEENT: Atraumatic Neck: Supple Respiratory: Clear to auscultation bilaterally Cardiovascular: No edema, Regular rate/rhythm, No rubs Gastrointestinal: Soft and benign, Non-distended, No rebound Musculoskeletal: No clubbing, No contractures Integumentary: No rashes, No cyanosis, Skin breakdown, Skin lesion Neurological: Normal speech Urinary: PD Dialysis catheter Blood work reviewed in the chart. Hgb 6; Cr 12.6 Imagings Data: EXAM DESCRIPTION: CT - Abdomen Pelvis Wo Contrast - 05/02/2019 5:45 pm CLINICAL HISTORY: Abdominal pain COMPARISON: February 2019 TECHNIQUE: Computed axial tomography of the abdomen and pelvis was obtained. Oral contrast given. IV contrast not requested All CT scans are performed using dose optimization technique as appropriate and may include automated exposure control or mA/KV adjustment according to patient size. FINDINGS: The evaluation of solid organs, and vessels is limited secondary to the lack of contrast administration. Marked skin thickening surrounds the peritoneal dialysis catheter within the left anterior subcutaneous fat of the pelvis. Ill-defined fluid is present within the subcutaneous tissues measuring approximately 7 x 3 centimeters. The tip of the catheter lies within the pelvis. No pelvic abscess noted. The liver, spleen, pancreas, adrenals and kidneys appear grossly normal. The appendix is normal. There is no evidence of diverticulitis. Small inguinal hernias contain fat Small pericardial effusion IMPRESSION: Ill-defined 7 x 3 centimeter area of fluid within the left anterior subcutaneous fat of the pelvis lateral to the peritoneal dialysis catheter likely indicating a cellulitis. A discrete drainable fluid collection however is not seen. There is also marked skin thickening. Conclusions/Impression: A/ ESRD. Currently not on dialysis. Acidosis. HTN with CKD/ CHF. LE Edema, controlled. DM II with CKD. Anemia in CKD. MICHELLE/ Secondary HyperPTH. LLQ Abdominal Wall Abscess/ Cellulitis. MRSA. P/ Continue current POC and Medications. Continue Bicab. Continue Procrit. Follow up with Dr. Maynard for wound care. Continue abx. Renal dosing. Recommend the patient consider HD due to multiple reasons including a high infection risk with PD due to poor vision. Mr. Ramon declines HD at this time and plans to start PD in the future. PRBC transfusion as needed. No NSAIDs. AM labs. Daily weight.
== END 2019-05-14 15:56 | disposition home or self-care (01) | DRG 602 ==
LOC: ER 14:33 → ERHOLD 20:49 → 2ND 21:19
PROVIDERS: ADMIT Hospitalist; ATTEND Hospitalist
PROC: 0J980ZX Drainage of Abdomen Subcutaneous Tissue and Fascia, Open Approach, Diagnostic (ICD-10-PCS; principal; 2019-05-03 12:30)
DX: L02.211 Cutaneous abscess of abdominal wall (principal); N18.6 End stage renal disease; I12.0 Hypertensive chronic kidney disease with stage 5 chronic kidney disease or end stage renal disease; Z68.41 Body mass index [BMI] 40.0-44.9, adult; N17.9 Acute kidney failure, unspecified; N25.81 Secondary hyperparathyroidism of renal origin; B95.62 Methicillin resistant Staphylococcus aureus infection as the cause of diseases classified elsewhere; E11.22 Type 2 diabetes mellitus with diabetic chronic kidney disease; Z91.14 Patient's other noncompliance with medication regimen; E11.319 Type 2 diabetes mellitus with unspecified diabetic retinopathy without macular edema; E66.01 Morbid (severe) obesity due to excess calories; D63.1 Anemia in chronic kidney disease
CPT/HCPCS: 36415; 36430; 74176; 80048; 80053; 80076; 80202; 81015; 82043; 82570; 82607; 82728; 82746; 82947; 83540; 83690; 83735; 84100; 84466; 84550; 85014; 85018; 85025; 85610; 85730; 86317; 86704; 86850; 86900; 86901; 87040; 87070; 87075; 87077; 87186; 87205; 87340; 88304; 99285; J0360; J0583; J0692; J1170; J1644; J1940; J2020; J2250; J2405; J2704; J3010; J3370; J7030; J7040; P9016; Q4081; S0077

== ENCOUNTER 2019-05-15 14:50 | Emergency (ER) | payer SELFPAY ==
--- OUTSIDE RECORDS SUMMARY | 2019-05-15 14:52 | XMS REPORT ---
:1970 [facility] Address [address] [place] [address] [address]. [address] [place] [address] Care Team Providers Name Role Phone Unavailable Unavailable Unavailable Problems This patient has no known problems. Allergies, Adverse Reactions, Alerts This patient has no known allergies or adverse reactions. Medications This patient has no known medications. Encounters Start End Encounter Admission Attending Care Care Encounter Date/Time Date/Time Type Type Clinicians Facility Department ID 2018-10-24 2018-10-24 Emergency E [facility] [id number] 07:02:00 07:02:00 2018-09-24 2018-09-24 Outpatient [facility] [id number] 05:19:00 05:19:00
[2019-05-15] MEDS ORDERED: FENTANYL CITR 100 MCG/2 ML ONE (16:24)
--- NOTE | 2019-05-15 16:48 | RAD REPORT ---
EXAM DESCRIPTION: CT - Stone Protocol - 05/15/2019 4:34 pm CLINICAL HISTORY: Abdominal pain. COMPARISON: May 02, 2019 TECHNIQUE: Computed axial tomography of the abdomen pelvis was obtained without oral or IV contrast. Lack of IV and oral contrast limits evaluation of solid organs, bowel, and vessels. Coronal reformat manuel images were obtained and reviewed. All CT scans are performed using dose optimization technique as appropriate and may include automated exposure control or mA/KV adjustment according to patient size. FINDINGS: A renal calculus is not seen. An ureteral calculus is not noted. A bladder calculus is not present. The liver, pancreas and adrenals appear grossly normal. Spleen is mildly enlarged Small inguinal hernias contain fat. Minimal pericardial effusion A peritoneal dialysis catheter is present within the pelvis. A defect is present within the skin and subcutaneous tissues of the left lateral upper pelvis. Incre ased density is present within the subcutaneous fat. A fluid collection is not seen. Diffuse edema is present throughout the subcutaneous tissues. Vascular calcifications are present There is no evidence of diverticulitis. The appendix appears normal IMPRESSION: Negative for a genitourinary calculus A defect is present within the skin and subcutaneous tissues of the left lateral upper pelvis. Presum ably this is secondary to prior debridement. An abscess is not seen. Increased density within the subcutaneous tissues may indicate a cellulitis Diffuse edema is present throughout the subcutaneous tissues.
--- NOTE | 2019-05-15 17:05 | ER ---
Nurse's Notes [facility] Name: Undray White Age: 48 yrs Sex: Male : 1970 Arrival Date: 05/15/2019 Time: 14:54 Bed 26 Private MD: Kiko Culp Diagnosis: Other abdominal pain-post I\\T\\D ;Cellulitis of abdominal wall Presentation: 05/15 15:06 Presenting complaint: Patient states: "I was just discharged from here yesterday. They aj1 did this surgery on me for a staph infection. They sent me home yesterday evening, I've been in pain and its getting worse. I was going to get my prescriptions called in at [facility] but they said he didn't call me in anything for pain. Transition of care: patient was not received from another setting of care. Onset of symptoms was May 15, 2019. Risk Assessment: Do you want to hurt yourself or someone else? Patient reports no desire to harm self or others. Initial Sepsis Screen: Does the patient meet any 2 criteria? No. Patient's initial sepsis screen is negative. Does the patient have a suspected source of infection? Yes: Acute abdominal pain. Care prior to arrival: None. 15:06 Method Of Arrival: Wheelchair aj1 15:06 Acuity: YESENIA 3 aj1 Triage Assessment: 15:09 General: Appears in no apparent distress. uncomfortable, Behavior is calm, cooperative, aj1 appropriate for age. Pain: Complains of pain in abdomen Pain currently is 10 out of 10 on a pain scale. Neuro: Level of Consciousness is awake, alert, obeys commands, Oriented to person, place, time, situation. Cardiovascular: Patient's skin is warm and dry. Respiratory: Airway is patent Respiratory effort is even, unlabored, Respiratory pattern is regular, symmetrical. GI: Reports lower abdominal pain. Historical: - Allergies: 15:09 Morphine (Vomiting); aj1 - Home Meds: 15:09 carvedilol Oral [Active]; Furosemide Oral [Active]; Hydralazine Oral [Active]; aj1 isosorbide dinitrate Oral [Active]; Nifedipine Oral [Active]; - PMHx: 15:09 Diabetes - NIDDM; Dialysis; High Cholesterol; Hypertension; PERITONEAL DIALYSIS; stage aj1 5 CKD; - Immunization history:: Flu vaccine is not up to date. - Social history:: Smoking status: Patient/guardian denies using tobacco. - Ebola Screening: : Patient denies travel to an Ebola-affected area in the 21 days before illness onset. Screenin:30 Abuse screen: Denies threats or abuse. Denies injuries from another. Nutritional mg2 screening: No deficits noted. Tuberculosis screening: No symptoms or risk factors identified. Fall Risk None identified. Assessment: 16:30 Reassessment: patient sent to ct scan via wheelchair. General: Appears uncomfortable, mg2 Behavior is calm, cooperative. Pain: Complains of pain in abdomen. Neuro: Level of Consciousness is awake, alert, obeys commands, Oriented to person, place, time, situation. Cardiovascular: Capillary refill < 3 seconds Patient's skin is warm and dry. Respiratory: Airway is patent Respiratory effort is even, unlabored, Respiratory pattern is regular, symmetrical. GI: Bowel sounds present X 4 quads. Abd is soft and non tender Reports lower abdominal pain, upper abdominal pain, post surgical site pain. : No signs and/or symptoms were reported regarding the genitourinary system. EENT: Derm: Skin is pink, warm \\T\\ dry. normal. Musculoskeletal: Circulation, motion, and sensation intact. Capillary refill < 3 seconds. Vital Signs: 15:09 BP 188 / 85; Pulse 67; Resp 18; Temp 97.8(O); Pulse Ox 95% on R/A; Weight 138.35 kg aj1 (R); Height 6 ft. 1 in. (185.42 cm) (R); Pain 10/10; 15:09 Body Mass Index 40.24 (138.35 kg, 185.42 cm) aj1 ED Course: 14:54 Patient arrived in ED. ag5 14:54 Kiko Culp DO is Private Physician. ag5 15:08 Triage completed. aj1 15:09 Arm band placed on Patient placed in waiting room, Patient notified of wait time. aj1 16:00 Fazal Luevano RN is Primary Nurse. mg2 16:01 Merari Telles FNP-C is PHCP. kb 16:01 Rio Cameron MD is Attending Physician. kb 16:30 No provider procedures requiring assistance completed. Patient did not have IV access mg2 during this emergency room visit. 16:32 Patient has correct armband on for positive identification. mg2 16:35 CT Stone Protocol In Process Unspecified. EDMS 17:04 Kiko Culp DO is Referral Physician. megan Administered Medications: 16:29 Drug: fentaNYL (PF) 100 mcg Route: IM; Site: right deltoid; mg2 17:13 Follow up: Response: No adverse reaction mg2 Outcome: 17:05 Discharge ordered by . megan 17:24 Patient left the ED. ss 17:24 Discharged to home via wheelchair. mg2 17:24 Condition: stable 17:24 Discharge instructions given to patient, Instructed on discharge instructions, follow up and referral plans. medication usage, Demonstrated understanding of instructions, follow-up care, medications, Prescriptions given X 1. Signatures: Dispatcher [employer] EDIN Merari Telles, DRYWALL STRIPPER HELPER-C DRYWALL STRIPPER HELPER-CkJanessa Milan RN RN aj1 Мария Culp RN RN ss Fazal Luevano RN RN mg2 Lisa Boyd ag5 Corrections: (The following items were deleted from the chart) 18:17 18:14 Discharged to home via wheelchair, mg2 mg2 18:17 18:14 Condition: stable mg2 mg2 18:17 18:14 Discharge instructions given to patient, Instructed on discharge instructions, mg2 follow up and referral plans. medication usage, Demonstrated understanding of instructions, follow-up care, medications, Prescriptions given X 1, mg2
--- NOTE | 2019-05-15 17:25 | EDPHYS ---
Physician Documentation [facility] Name: Undray White Age: 48 yrs Sex: Male : 1970 Arrival Date: 05/15/2019 Time: 14:54 Bed 26 Private MD: Kiko Culp ED Physician Rio Cameron HPI: 05/15 17:01 This 48 yrs old Black Male presents to ER via Wheelchair with complaints of Abdominal kb Pain, Post Surgical Pain. 17:02 Pt reports he was here for a couple of weeks for an abscess. Had surgery and was on IV kb antibiotics and pain medication. Sent home yesterday with no pain medication. States pain came back about 2 hours after he was discharged. Called Dr Culp's office twice and he was in with patients, then called wound care and they told him to just come to the ER for pain medication. . Onset: The symptoms/episode began/occurred yesterday. Severity of symptoms: At their worst the symptoms were moderate in the emergency department the symptoms are unchanged. The patient has not experienced similar symptoms in the past. The patient has been recently been admitted at [facility], was discharged yesterday. Historical: - Allergies: 15:09 Morphine (Vomiting); aj1 - Home Meds: 15:09 carvedilol Oral [Active]; Furosemide Oral [Active]; Hydralazine Oral [Active]; aj1 isosorbide dinitrate Oral [Active]; Nifedipine Oral [Active]; - PMHx: 15:09 Diabetes - NIDDM; Dialysis; High Cholesterol; Hypertension; PERITONEAL DIALYSIS; stage aj1 5 CKD; - Immunization history:: Flu vaccine is not up to date. - Social history:: Smoking status: Patient/guardian denies using tobacco. - Ebola Screening: : Patient denies travel to an Ebola-affected area in the 21 days before illness onset. ROS: 17:00 Constitutional: Negative for fever, chills, and weight loss, Cardiovascular: Negative kb for chest pain, palpitations, and edema, Respiratory: Negative for shortness of breath, cough, wheezing, and pleuritic chest pain, Back: Negative for injury and pain, MS/Extremity: Negative for injury and deformity, Neuro: Negative for headache, weakness, numbness, tingling, and seizure. 17:00 Abdomen/GI: Positive for abdominal pain, Negative for nausea, vomiting, and diarrhea. Exam: 17:01 Constitutional: This is a well developed, well nourished patient who is awake, alert, kb and in no acute distress. Head/Face: Normocephalic, atraumatic. ENT: Nares patent. No nasal discharge, no septal abnormalities noted. Tympanic membranes are normal and external auditory canals are clear. Oropharynx with no redness, swelling, or masses, exudates, or evidence of obstruction, uvula midline. Mucous membranes moist. Neck: Trachea midline, no thyromegaly or masses palpated, and no cervical lymphadenopathy. Supple, full range of motion without nuchal rigidity, or vertebral point tenderness. No Meningismus. Chest/axilla: Normal chest wall appearance and motion. Nontender with no deformity. No lesions are appreciated. Cardiovascular: Regular rate and rhythm with a normal S1 and S2. No gallops, murmurs, or rubs. Normal PMI, no JVD. No pulse deficits. Respiratory: Lungs have equal breath sounds bilaterally, clear to auscultation and percussion. No rales, rhonchi or wheezes noted. No increased work of breathing, no retractions or nasal flaring. Back: No spinal tenderness. No costovertebral tenderness. Full range of motion. MS/ Extremity: Pulses equal, no cyanosis. Neurovascular intact. Full, normal range of motion. Neuro: Awake and alert, GCS 15, oriented to person, place, time, and situation. Cranial nerves II-XII grossly intact. Motor strength 5/5 in all extremities. Sensory grossly intact. Cerebellar exam normal. Normal gait. 17:01 Abdomen/GI: Inspection: obese Bowel sounds: normal, Palpation: soft, in all quadrants, moderate abdominal tenderness, in the left lower quadrant, tenderness to area of recent surgery. Vital Signs: 15:09 BP 188 / 85; Pulse 67; Resp 18; Temp 97.8(O); Pulse Ox 95% on R/A; Weight 138.35 kg aj1 (R); Height 6 ft. 1 in. (185.42 cm) (R); Pain 10/10; 15:09 Body Mass Index 40.24 (138.35 kg, 185.42 cm) aj MDM: 16:02 Patient medically screened. kb 16:54 Data reviewed: vital signs, nurses notes. Data interpreted: Pulse oximetry: on room air kb is 95 %. Interpretation: normal. Counseling: I had a detailed discussion with the patient and/or guardian regarding: the historical points, exam findings, and any diagnostic results supporting the discharge/admit diagnosis, radiology results, the need for outpatient follow up, a family practitioner, a general surgeon, to return to the emergency department if symptoms worsen or persist or if there are any questions or concerns that arise at home. ED course: Pt has wound vac to [place] from recent I\T\D. Reports he is set up for wound care and outpatient IV antibiotics that are supposed to be started on 05/20/19. States he came today because he was not given any pain medication for home. No new abscess formation on CT. Will send home with Tylenol #3 for pain management and pt to follow up as directed. . 05/15 16:20 Order name: CT Stone Protocol; Complete Time: 16:54 kb Administered Medications: 16:29 Drug: fentaNYL (PF) 100 mcg Route: IM; Site: right deltoid; mg2 17:13 Follow up: Response: No adverse reaction mg2 Disposition: 17:48 Co-signature as Attending Physician, Rio Cameron MD. ma2 Disposition: 05/15/19 17:05 Discharged to Home. Impression: Other abdominal pain - post I\T\D , Cellulitis of abdominal wall. - Condition is Stable. - Discharge Instructions: Cellulitis, Adult, [id number]. - Prescriptions for Tylenol- Codeine #3 300-30 mg Oral Tablet - take 2 tablets by ORAL route every 6 hours As needed; 20 tablet. - Medication Reconciliation Form, Thank You Letter, Antibiotic Education, Prescription Opioid Use form. - Follow up: Emergency Department; When: As needed; Reason: Worsening of condition. Follow up: Kiko Culp DO; When: 2 - 3 days; Reason: Recheck today's complaints, Continuance of care, Re-evaluation by your physician. - Notes: Keep appointments for outpatient IV antibiotics and wound care. Follow up with Dr Culp and Yo as directed Signatures: Dispatcher [employer] EDMerari Lozada, ELECTRICAL ASSEMBLY TECHNICIAN-C ELECTRICAL ASSEMBLY TECHNICIAN-Janakb Janessa Miguel RN RN aj1 Мария Culp RN RN ss Rio Cameron MD MD ma2 Fazal Luevano, RN RN mg2 Corrections: (The following items were deleted from the chart) 17:24 17:05 05/15/2019 17:05 Discharged to Home. Impression: Other abdominal pain - post I\T\D ss ; Cellulitis of abdominal wall. Condition is Stable. Forms are Medication Reconciliation Form, Thank You Letter, Antibiotic Education, Prescription Opioid Use. Follow up: Emergency Department; When: As needed; Reason: Worsening of condition. Follow up: Kiko Culp; When: 2 - 3 days; Reason: Recheck today's complaints, Continuance of care, Re-evaluation by your physician. kb
[2019-05-15 18:24] VITALS: BP 188/85; TEMP 97.8; O2SAT 95
== END 2019-05-15 17:24 | disposition home or self-care (01) ==
LOC: ER 14:50
DX: L03.311 Cellulitis of abdominal wall (principal); I12.0 Hypertensive chronic kidney disease with stage 5 chronic kidney disease or end stage renal disease; E11.22 Type 2 diabetes mellitus with diabetic chronic kidney disease; N18.5 Chronic kidney disease, stage 5; E78.00 Pure hypercholesterolemia, unspecified; Z88.5 Allergy status to narcotic agent; Z99.2 Dependence on renal dialysis
CPT/HCPCS: 74176; 76377; 96372; 99283; J3010

== ENCOUNTER 2019-05-21 10:49 | Emergency (ER) | payer SELFPAY ==
--- OUTSIDE RECORDS SUMMARY | 2019-05-21 11:27 | XMS REPORT ---
:1970 [facility] [address] [place] [address] [address] [place] [address] Care Team Providers Name Role Phone Unavailable Unavailable Unavailable Problems This patient has no known problems. Allergies, Adverse Reactions, Alerts This patient has no known allergies or adverse reactions. Medications This patient has no known medications. Encounters Start End Encounter Admission Attending Care Care Encounter Date/Time Date/Time Type Type Clinicians Facility Department ID 2018-10-24 2018-10-24 Emergency E [facility] [id number] 07:02:00 07:02:00 2018-09-24 2018-09-24 Outpatient [facility] [id number] 05:19:00 05:19:00
[2019-05-21 12:17] LABS: Potassium 4.4 mmol/L (3.5-5.1)
--- NOTE | 2019-05-21 12:53 | EDPHYS ---
Physician Documentation [facility] Name: Undray White Age: 48 yrs Sex: Male : 1970 Arrival Date: 05/21/2019 Time: 10:50 Bed 23 Private MD: ED Physician Darryl Robert HPI: 05/21 11:28 This 48 yrs old Black Male presents to ER via Wheelchair with complaints of High Blood ps1 Pressure. 11:28 Patient presenting with asymptomatic hypertension. He is transitioning to peritoneal ps1 dialysis. Recently discharged from hospital for staph infection. Was at wound care today at Dr. Maynard office and sent over for elevated BP without symptoms and patient verbalized that he did not take his morning BP meds ,staff wrote it down. Patient is on carvedilol and isosorbide. Pt of Dr. Culp for CKD and primary care. . Historical: - Allergies: 11:17 Morphine (Vomiting); iw - Home Meds: 11:22 carvedilol oral oral [Active]; Isosorbide Mononitrate Oral [Active]; sodium bicarbonate iw 325 mg Oral tab daily [Active]; doxazosin 4 mg oral tab 1 tab once daily [Active]; - PMHx: 11:17 Diabetes - NIDDM; Dialysis; High Cholesterol; Hypertension; PERITONEAL DIALYSIS; stage iw 5 CKD; - Immunization history:: Adult Immunizations not up to date. - Social history:: Smoking status: Patient/guardian denies using tobacco. - Ebola Screening: : Patient negative for fever greater than or equal to 101.5 degrees Fahrenheit, and additional compatible Ebola Virus Disease symptoms Patient denies exposure to infectious person Patient denies travel to an Ebola-affected area in the 21 days before illness onset No symptoms or risks identified at this time. ROS: 11:28 Constitutional: Negative for fever, chills, and weight loss, Eyes: Negative for injury, ps1 pain, redness, and discharge, Cardiovascular: Negative for chest pain, palpitations, and edema, Respiratory: Negative for shortness of breath, cough, wheezing, and pleuritic chest pain, Abdomen/GI: Negative for abdominal pain, nausea, vomiting, diarrhea, and constipation, MS/Extremity: Negative for injury and deformity, Skin: Negative for injury, rash, and discoloration, Neuro: Negative for headache, weakness, numbness, tingling, and seizure. Exam: 11:28 Constitutional: This is a well developed, well nourished patient who is awake, alert, ps1 and in no acute distress. Head/Face: Normocephalic, atraumatic. Eyes: Pupils equal round and reactive to light, extra-ocular motions intact. Lids and lashes normal. Conjunctiva and sclera are non-icteric and not injected. Chest/axilla: Normal chest wall appearance and motion. Nontender with no deformity. No lesions are appreciated. Cardiovascular: Regular rate and rhythm. No gallops, murmurs, or rubs. Normal PMI, no JVD. No pulse deficits. Respiratory: Lungs have equal breath sounds bilaterally, clear to auscultation and percussion. No rales, rhonchi or wheezes noted. No increased work of breathing, no retractions or nasal flaring. MS/ Extremity: Pulses equal, no cyanosis. Neurovascular intact. Full, normal range of motion. Neuro: Awake and alert, GCS 15, oriented to person, place, time, and situation. Cranial nerves II-XII grossly intact. Sensory grossly intact. 11:28 Abdomen/GI: Inspection: peritoneal dialysis. 11:28 Skin: has dressed abdominal wall lesion. . Vital Signs: 11:04 BP 209 / 115; Pulse 74; Resp 18 S; Temp 98.3; Pulse Ox 100% on R/A; Weight 152.86 kg; iw Height 6 ft. 1 in. (185.42 cm); Pain 3/10; 12:29 BP 157 / 101; Pulse 76; Resp 18; Pulse Ox 98% on R/A; aj1 13:18 BP 164 / 95; Pulse 78; Resp 18; Pulse Ox 99% on R/A; aj1 11:04 Body Mass Index 44.46 (152.86 kg, 185.42 cm) iw MDM: 11:34 Patient medically screened. ps1 12:50 Data reviewed: vital signs, nurses notes, lab test result(s), and as a result, I will ps1 discharge patient. Counseling: I had a detailed discussion with the patient and/or guardian regarding: the historical points, exam findings, and any diagnostic results supporting the discharge/admit diagnosis, the presence of at least one elevated blood pressure reading (>120/80) during this emergency department visit, lab results, the need for outpatient follow up, to return to the emergency department if symptoms worsen or persist or if there are any questions or concerns that arise at home. ED course: Patient maintained no symptoms. Patient to go home and take his scheduled medications as directed. Follow up with Suni. Stable for discharge. . 05/21 11:27 Order name: PRANEETH; Complete Time: 12:49 ps1 05/21 12:50 Interpretation: Abnormal: CRE 12.70; GFR 5; BUN 77; Chronic. ps1 Administered Medications: No medications were administered Disposition: 05/21/19 12:52 Discharged to Home. Impression: Asymptomatic hypertension, CKD. - Condition is Stable. - Discharge Instructions: Managing Your Hypertension. - Medication Reconciliation Form, Thank You Letter, Antibiotic Education, Prescription Opioid Use form. - Follow up: Kiko Culp DO; When: Upon discharge from the Emergency Department; Reason: Further diagnostic work-up, Recheck today's complaints, Continuance of care, Re-evaluation by your physician. Follow up: Emergency Department; When: As needed; Reason: Trouble breathing, Worsening of condition. - Problem is chronic. - Symptoms are unchanged. Signatures: Dispatcher [employer] EDMS Janessa Miguel RN RN aj1 Bobbi Meza RN RN iw Darryl Robert MD MD ps1 Corrections: (The following items were deleted from the chart) 13:19 12:52 05/21/2019 12:52 Discharged to Home. Impression: Asymptomatic hypertension; CKD. aj1 Condition is Stable. Forms are Medication Reconciliation Form, Thank You Letter, Antibiotic Education, Prescription Opioid Use. Follow up: Kiko Culp; When: Upon discharge from the Emergency Department; Reason: Further diagnostic work-up, Recheck today's complaints, Continuance of care, Re-evaluation by your physician. Follow up: Emergency Department; When: As needed; Reason: Trouble breathing, Worsening of condition. Problem is chronic. Symptoms are unchanged. ps1
--- NOTE | 2019-05-21 12:53 | ER ---
Nurse's Notes [facility] Name: Hilaria White Age: 48 yrs Sex: Male : 1970 Arrival Date: 05/21/2019 Time: 10:50 Bed 23 Private MD: Diagnosis: Asymptomatic hypertension;CKD Presentation: 05/21 11:04 Presenting complaint: Patient states: was at wound healing and was told his BP was iw really high, 250 systolic, states he did not take his BP medicine this morning and had recent BP medications added on Monday, pt c/o slight headache, no dizziness ot blurry vision, states his wound is healing nicely. 11:12 Transition of care: patient was not received from another setting of care. Onset of iw symptoms was May 21, 2019. Risk Assessment: Do you want to hurt yourself or someone else? Patient reports no desire to harm self or others. Initial Sepsis Screen: Does the patient meet any 2 criteria? No. Patient's initial sepsis screen is negative. Does the patient have a suspected source of infection? No. Patient's initial sepsis screen is negative. Care prior to arrival: None. 11:12 Method Of Arrival: Wheelchair iw 11:12 Acuity: YESENIA 3 iw Historical: - Allergies: 11:17 Morphine (Vomiting); iw - Home Meds: 11:22 carvedilol oral oral [Active]; Isosorbide Mononitrate Oral [Active]; sodium bicarbonate iw 325 mg Oral tab daily [Active]; doxazosin 4 mg oral tab 1 tab once daily [Active]; - PMHx: 11:17 Diabetes - NIDDM; Dialysis; High Cholesterol; Hypertension; PERITONEAL DIALYSIS; stage iw 5 CKD; - Immunization history:: Adult Immunizations not up to date. - Social history:: Smoking status: Patient/guardian denies using tobacco. - Ebola Screening: : Patient negative for fever greater than or equal to 101.5 degrees Fahrenheit, and additional compatible Ebola Virus Disease symptoms Patient denies exposure to infectious person Patient denies travel to an Ebola-affected area in the 21 days before illness onset No symptoms or risks identified at this time. Screenin:52 Abuse screen: Denies threats or abuse. Denies injuries from another. Nutritional iw screening: No deficits noted. Tuberculosis screening: No symptoms or risk factors identified. Fall Risk IV access (20 points). Assessment: 11:51 General: Appears in no apparent distress. Behavior is calm, cooperative. Pain: iw Complains of pain in head. Neuro: Level of Consciousness is awake, alert, obeys commands, Oriented to person, place, time, situation. Cardiovascular: Capillary refill < 3 seconds in bilateral fingers Patient's skin is warm and dry. Respiratory: Respiratory effort is even, unlabored. Derm: Skin is intact, is healthy with good turgor. Musculoskeletal: Range of motion: intact in all extremities. 12:24 Reassessment: Patient appears in no apparent distress at this time. No changes from aj1 previously documented assessment. Patient and/or family updated on plan of care and expected duration. Pain level reassessed. Patient is alert, oriented x 3, equal unlabored respirations, skin warm/dry/pink. 13:18 Reassessment: Patient appears in no apparent distress at this time. No changes from aj1 previously documented assessment. Patient and/or family updated on plan of care and expected duration. Pain level reassessed. Patient is alert, oriented x 3, equal unlabored respirations, skin warm/dry/pink. Vital Signs: 11:04 BP 209 / 115; Pulse 74; Resp 18 S; Temp 98.3; Pulse Ox 100% on R/A; Weight 152.86 kg; iw Height 6 ft. 1 in. (185.42 cm); Pain 3/10; 12:29 BP 157 / 101; Pulse 76; Resp 18; Pulse Ox 98% on R/A; aj1 13:18 BP 164 / 95; Pulse 78; Resp 18; Pulse Ox 99% on R/A; aj1 11:04 Body Mass Index 44.46 (152.86 kg, 185.42 cm) ED Course: 10:50 Patient arrived in ED. as 10:55 Darryl Robert MD is Attending Physician. ps1 11:04 Arm band placed on. iw 11:09 Janessa Miguel, RN is Primary Nurse. aj1 11:13 Triage completed. iw 11:52 Initial lab(s) drawn, by me, sent to lab. iw 12:23 Patient has correct armband on for positive identification. Bed in low position. Call aj1 light in reach. 12:23 No provider procedures requiring assistance completed. aj1 12:51 Kiko Culp DO is Referral Physician. ps1 13:19 Patient did not have IV access during this emergency room visit. aj1 Administered Medications: No medications were administered Outcome: 12:52 Discharge ordered by MD. ps1 13:19 Discharged to home ambulatory. aj1 13:19 Condition: good 13:19 Discharge instructions given to patient, Instructed on discharge instructions, follow up and referral plans. Demonstrated understanding of instructions, follow-up care. 13:19 Patient left the ED. aj1 Signatures: Janessa Miguel RN RN aj1 Brenda Maynard as Bobbi Meza RN RN iw Darryl Robert MD MD ps1 Corrections: (The following items were deleted from the chart) 12:29 12:28 Reassessment: Patient appears in no apparent distress at this time. No changes aj1 from previously documented assessment. Patient and/or family updated on plan of care and expected duration. Pain level reassessed. Patient is alert, oriented x 3, equal unlabored respirations, skin warm/dry/pink. aj1
[2019-05-21 13:28] VITALS: TEMP 98.3
[2019-05-21 13:31] VITALS: BP 164/95; O2SAT 99
== END 2019-05-21 13:19 | disposition home or self-care (01) ==
LOC: ER 10:49
DX: I10 Essential (primary) hypertension (principal); E11.22 Type 2 diabetes mellitus with diabetic chronic kidney disease; I12.0 Hypertensive chronic kidney disease with stage 5 chronic kidney disease or end stage renal disease; N18.5 Chronic kidney disease, stage 5
CPT/HCPCS: 36415; 80048; 99283

== ENCOUNTER 2019-07-29 12:22 | Inpatient (IN) | payer OTHER ==
--- OUTSIDE RECORDS SUMMARY | 2019-07-29 12:25 | XMS REPORT ---
:1970 Author Organization [facility] Address [address] [place] [address] Care Team Providers Name Role Phone Unavailable Unavailable Unavailable Problems This patient has no known problems. Allergies, Adverse Reactions, Alerts This patient has no known allergies or adverse reactions. Medications This patient has no known medications. Encounters Start End Encounter Admission Attending Care Care Encounter Date/Time Date/Time Type Type Clinicians Facility Department ID 2018-10-24 2018-10-24 Emergency E [facility] [id number] 07:02:00 07:02:00 2018-09-24 2018-09-24 Outpatient [facility] [id number] 05:19:00 05:19:00
[2019-07-29 13:43] LABS: Protime INR 1.2
--- NOTE | 2019-07-29 13:57 | RAD REPORT ---
EXAM DESCRIPTION: RAD - Chest Pa And Lat (2 Views) - 07/29/2019 1:39 pm CLINICAL HISTORY: SOB COMPARISON: Chest Pa And Lat (2 Views) dated 02/20/2019; Stone Protocol dated 05/15/2019; Chest Pa An d Lat (2 Views) dated 12/04/2018 TECHNIQUE: Frontal and lateral views of the chest were obtained. FINDINGS: The lungs are clear of a focal mass or consolidation. Interstitial pattern is mildly promi nent but not clearly different. Chronic pleural scarring changes are present in the right lung base. Fullness of the pulmonary arteries matches comparison. Trachea is midline. Heart size is normal and central vasculature is within normal limits. No pleural effusion or pneumothorax seen. No acute bon y finding noted. No aortic abnormality. IMPRESSION: Chronic pleural and parenchymal changes stable back to November 2018.
[2019-07-29 13:58] LABS: Absolute Lymphocytes (CBC) 0.3 K/uL (0.7-4.9); Basophils % 0.9 % (0-1.3); Lymphocytes % 7.7 % (15.3-44.8); MPV 8.2 fL (7.6-11.3); RBC Red Blood Cell Count 2.11 M/uL (4.33-5.43)
[2019-07-29 14:05] LABS: ALT/SGPT 13 U/L (12-78); AST/SGOT 10 U/L (15-37); Albumin 2.9 g/dL (3.4-5.0); Alkaline Phosphatase 59 U/L (45-117); BUN Blood Urea Nitrogen 97 mg/dL (7-18); Bicarbonate 17 mmol/L (21-32); Bilirubin Direct < 0.1 mg/dL (0-0.2); Bilirubin Total 0.2 mg/dL (0.2-1.0); Glucose Level 124 mg/dL (74-106); Magnesium 1.9 mg/dL (1.8-2.4); NT PRO-BNP 20553 pg/mL (<125); Potassium 4.2 mmol/L (3.5-5.1); Protein, Total 6.9 g/dL (6.4-8.2); Sodium Level 140 mmol/L (136-145); Troponin (Emerg Dept Use Only) 0.03 ng/mL (0.0-0.045)
--- NOTE | 2019-07-29 15:12 | EDPHYS ---
Physician Documentation [facility] Briseyda Name: Undray White Age: 49 yrs Sex: Male : 1970 Arrival Date: 07/29/2019 Time: 12:26 Bed 15 Private MD: ED Physician Trey Mcconnell HPI: 07/29 13:25 This 49 yrs old Black Male presents to ER via Ambulatory with complaints of Shortness cp Of Breath, Breathing Difficulty, Leg Pain. 13:25 The patient has shortness of breath with light activity. cp 13:25 Onset: The symptoms/episode began/occurred gradually, for past few days. Duration: The cp symptoms are continuous, and are steadily getting worse. Associated signs and symptoms: Pertinent positives: swelling of lower legs, Pertinent negatives: chest pain, productive cough, diaphoresis, fever. Historical: - Allergies: 12:51 Morphine (Vomiting); ch - Home Meds: 15:46 doxazosin 8 mg oral tab [Active]; sildenafil oral oral [Active]; Nifedipine Oral jl7 [Active]; furosemide 80 mg oral tab [Active]; isosorbide dinitrate Oral [Active]; - PMHx: 12:51 Diabetes - NIDDM; High Cholesterol; Hypertension; PERITONEAL DIALYSIS ; not being done ch now; stage 5 CKD; TIA; - PSHx: 12:51 PD cath for peritonial dialysis; yasmeen knee; ch - Immunization history:: Adult Immunizations up to date, Flu vaccine is not up to date. - Coronavirus screen:: The patient has NOT traveled to [place], [place], or [place] in the past 14 days. The patient has NOT had contact with known/suspected case of Coronavirus?. - Social history:: Smoking status: Patient denies any tobacco usage or history of. Patient/guardian denies using alcohol, street drugs. - Ebola Screening: : Patient negative for fever greater than or equal to 101.5 degrees Fahrenheit, and additional compatible Ebola Virus Disease symptoms Patient denies exposure to infectious person Patient denies travel to an Ebola-affected area in the 21 days before illness onset No symptoms or risks identified at this time. ROS: 13:30 Constitutional: Negative for body aches, chills, fever, poor PO intake. cp 13:30 Eyes: Negative for injury, pain, redness, and discharge. cp 13:30 ENT: Negative for drainage from ear(s), ear pain, sore throat, difficulty swallowing, difficulty handling secretions. 13:30 Cardiovascular: Positive for edema, Negative for chest pain, palpitations. 13:30 Respiratory: Positive for dyspnea on exertion, shortness of breath, on exertion. Negative for cough, wheezing. 13:30 Abdomen/GI: Negative for abdominal pain, vomiting, diarrhea, constipation, black/tarry stool, rectal bleeding. 13:30 Back: Negative for pain at rest, pain with movement. 13:30 Skin: Negative for cellulitis, rash. 13:30 Neuro: Negative for altered mental status, headache, syncope, weakness. 13:30 All other systems are negative. Exam: 13:35 Constitutional: The patient appears in no acute distress, alert, awake, cp non-diaphoretic, non-toxic, well developed, well nourished, obese. 13:35 Head/Face: Normocephalic, atraumatic. cp 13:35 Eyes: Periorbital structures: appear normal, Pupils: equal, round, and reactive to light and accomodation, Extraocular movements: intact throughout, Conjunctiva: normal, no exudate, no injection, Sclera: no appreciated abnormality, Lids and lashes: appear normal, bilaterally. 13:35 ENT: External ear(s): are unremarkable, Ear canal(s): are normal, clear, TM's: dullness, bilaterally, Nose: is normal, Mouth: Lips: moist, Oral mucosa: pink and intact, moist, Posterior pharynx: is normal, airway is patent, no erythema, no exudate. 13:35 Neck: ROM/movement: is normal, is supple, without pain, no range of motions limitations, no nuchal rigidity. 13:35 Chest/axilla: Inspection: normal, Palpation: is normal, no crepitus, no tenderness. 13:35 Cardiovascular: Rate: normal, Rhythm: regular, Edema: pedal edema, that is marked, ankle edema, that is marked, JVD: is not appreciated. 13:35 Respiratory: the patient does not display signs of respiratory distress, Respirations: normal, no use of accessory muscles, no retractions, no splinting, no tachypnea, labored breathing, is not present, Breath sounds: are clear throughout, no decreased breath sounds, no stridor, no wheezing. 13:35 Abdomen/GI: Inspection: obese noted peritoneal catheter left lower abdomen, Bowel sounds: active, all quadrants, Palpation: abdomen is soft and non-tender, in all quadrants. 13:35 Back: pain, is absent, ROM is normal. 13:35 Skin: cellulitis, is not appreciated. 13:35 Neuro: Orientation: to person, place \T\ time. Mentation: is normal, Motor: moves all fours, strength is normal. 14:00 ECG was reviewed by the Attending Physician. cp Vital Signs: 12:51 BP 191 / 99; Pulse 77; Resp 22; Temp 98.4; Pulse Ox 99% on R/A; Weight 151.95 kg; ch Height 6 ft. 1 in. (185.42 cm); Pain 8/10; 14:30 BP 159 / 107; Pulse 70; Resp 19 S; Pulse Ox 100% on R/A; Pain 0/10; jl7 15:46 BP 194 / 99; Pulse 75; Resp 19 S; Pulse Ox 100% on R/A; jl7 12:51 Body Mass Index 44.20 (151.95 kg, 185.42 cm) ch MDM: 13:04 Patient medically screened. cp 13:30 Differential diagnosis: Anemia CHF exacerbation, Chronic Obstructive Pulmonary Disease cp pneumonia, pulmonary edema, Unstable Angina. 15:00 Data reviewed: vital signs, nurses notes, lab test result(s), EKG, radiologic studies, cp plain films, and as a result, I will admit patient. 15:00 Test interpretation: by ED physician or midlevel provider: ECG, plain radiologic cp studies, chest xray negative for infiltrates. 07/29 13:18 Order name: Basic Metabolic Panel cp 07/29 13:18 Order name: CBC with Diff cp 07/29 13:18 Order name: LFT's cp 07/29 13:18 Order name: Magnesium cp 07/29 13:18 Order name: NT PRO-BNP cp 07/29 13:18 Order name: PT-INR cp 07/29 13:18 Order name: Troponin (emerg Dept Use Only) cp 07/29 13:48 Order name: Protime (+INR); Complete Time: 14:11 EDMS 07/29 14:02 Order name: CBC with Automated Diff; Complete Time: 14:11 EDMS 07/29 14:12 Interpretation: Normal except: WBC 3.9; RBC 2.11; HGB 5.8; HCT 18.0; RDW 17.1; RICARDO% cp 81.7; LYM% 7.7; LYMA 0.3. 07/29 14:09 Order name: Basic Metabolic Panel; Complete Time: 14:11 EDMS 07/29 14:12 Interpretation: Normal except: CL 109; CO2 17; GLUC 124; BUN 97; CRE 14.60; GFR 4; CA cp 7.7. 07/29 14:09 Order name: Liver (Hepatic) Function; Complete Time: 14:11 EDMS 07/29 14:09 Order name: Troponin (Emerg Dept Use Only); Complete Time: 14:11 EDMS 07/29 14:09 Order name: NT PRO-BNP; Complete Time: 14:11 EDMS 07/29 14:12 Interpretation: Abnormal: NT PRO-BNP 41608. cp 07/29 14:09 Order name: Magnesium; Complete Time: 14:11 EDMS 07/29 13:18 Order name: EKG; Complete Time: 13:21 cp 07/29 13:18 Order name: Cardiac monitoring; Complete Time: 14:28 cp 07/29 13:18 Order name: EKG - Nurse/Tech; Complete Time: 14:28 cp 07/29 13:18 Order name: XRAY Chest Pa And Lat (2 Views) cp 07/29 14:07 Order name: RAD; Complete Time: 14:11 EDMS 07/29 14:13 Order name: Type And Screen cp 07/29 14:13 Order name: US Extremity Venous W Compression Yasmeen cp 07/29 15:07 Order name: Bb Add On bd 07/29 15:13 Order name: Type and Screen EDMS 07/29 15:19 Order name: US; Complete Time: 16:06 EDMS 07/29 16:07 Interpretation: Report reviewed. cp 07/29 16:07 Order name: Hemoglobin; Complete Time: 16:07 EDMS 07/29 16:08 Interpretation: Abnormal: HGB 5.8. cp 07/29 16:07 Order name: Hematocrit; Complete Time: 16:07 EDMS 07/29 16:08 Interpretation: Abnormal: HCT 17.8. cp 07/29 13:18 Order name: IV Saline Lock; Complete Time: 13:35 cp 07/29 13:18 Order name: Labs collected and sent; Complete Time: 13:35 cp 02 13:18 Order name: O2 Per Protocol; Complete Time: 13:35 cp 07/29 13:18 Order name: O2 Sat Monitoring; Complete Time: 13:35 cp 07/29 15:11 Order name: NPO; Complete Time: 15:17 cp EC:00 Rate is 78 beats/min. Rhythm is regular. NM interval is normal. QRS interval is normal. cp QT interval is normal. T waves are Inverted in leads I, aVL. Interpreted by me. Reviewed by me. Administered Medications: 15:28 Not Given (Other Intervention Used): Lasix 60 mg IVP once jl7 15:50 Drug: Lasix 40 mg Route: IVP; Site: right forearm; jl7 16:00 Follow up: Response: No adverse reaction jl7 Disposition: 16:50 Co-signature as Attending Physician, Trey Mcconnell MD I agree with the assessment and kdr plan of care. Disposition: 07/29/19 15:11 Hospitalization ordered by Mark Barba for Inpatient Admission. Preliminary diagnosis are Anemia in chronic kidney disease, Shortness of breath. - Bed requested for Telemetry/MedSurg (Inpatient). - Status is Inpatient Admission. jl7 - Condition is Stable. - Problem is an ongoing problem. - Symptoms are unchanged. Signatures: Dispatcher [employer] EDMS Marie Corona, RN Andreina Aragon ch, RN RN dw Rittger, Kevin, MD MD kdr Page, Corey, PA PA cp Leal, Jahala RN RN jl7 Corrections: (The following items were deleted from the chart) 14:12 14:11 Normal except: WBC 3.9; RBC 2.11; HGB 5.8; HCT 18.0; RDW 17.1; RICARDO% 81.7; LYM% cp 7.7. cp 14:12 14:12 Normal except: CL 109; CO2 17; GLUC 124; BUN 97; CRE 14.60; GFR 4. cp cp 15:36 15:11 Hospitalization Ordered by Mark Barba DO for Inpatient Admission. Preliminary marvin diagnosis is Anemia in chronic kidney disease; Shortness of breath. Bed requested for Telemetry/MedSurg (Inpatient). Status is Inpatient Admission. Condition is Stable. Problem is an ongoing problem. Symptoms are unchanged. cp 16:09 15:36 07/29/2019 15:11 Hospitalization Ordered by Mark Barba DO for Inpatient jl7 Admission. Preliminary diagnosis is Anemia in chronic kidney disease; Shortness of breath. Bed requested for Telemetry/MedSurg (Inpatient). Status is Inpatient Admission. Condition is Stable. Problem is an ongoing problem. Symptoms are unchanged. dw
--- NOTE | 2019-07-29 15:12 | ER ---
Nurse's Notes [facility] Nasreen Name: Hilaria White Age: 49 yrs Sex: Male : 1970 Arrival Date: 07/29/2019 Time: 12:26 Bed 15 Private MD: Diagnosis: Anemia in chronic kidney disease;Shortness of breath Presentation: 07/29 12:47 Presenting complaint: Patient states: Out of breath and SOB for the past few days. I am ch getting set up for dialysis on . I have a PD cath. I have needed blood transfusion and a shot to produce RBC. My legs look darker than normal, and are both very painful. Transition of care: patient was not received from another setting of care. Onset of symptoms was June 04, 2019. Risk Assessment: Do you want to hurt yourself or someone else? Patient reports no desire to harm self or others. Initial Sepsis Screen: Does the patient meet any 2 criteria? No. Patient's initial sepsis screen is negative. Does the patient have a suspected source of infection? No. Patient's initial sepsis screen is negative. Care prior to arrival: None. 12:47 Method Of Arrival: Ambulatory 12:47 Acuity: YESENIA 3 Triage Assessment: 12:51 General: Appears in no apparent distress. comfortable, Behavior is calm, cooperative, appropriate for age. Pain: Complains of pain in right leg and left leg Pain currently is 8 out of 10 on a pain scale. Respiratory: Reports shortness of breath at rest on exertion. 15:57 Respiratory: the patient has mild shortness of breath. jl7 Historical: - Allergies: 12:51 Morphine (Vomiting); - Home Meds: 15:46 doxazosin 8 mg oral tab [Active]; sildenafil oral oral [Active]; Nifedipine Oral jl7 [Active]; furosemide 80 mg oral tab [Active]; isosorbide dinitrate Oral [Active]; - PMHx: 12:51 Diabetes - NIDDM; High Cholesterol; Hypertension; PERITONEAL DIALYSIS ; not being done now; stage 5 CKD; TIA; - PSHx: 12:51 PD cath for peritonial dialysis; yasmeen knee; - Immunization history:: Adult Immunizations up to date, Flu vaccine is not up to date. - Coronavirus screen:: The patient has NOT traveled to [place], [place], or [place] in the past 14 days. The patient has NOT had contact with known/suspected case of Coronavirus?. - Social history:: Smoking status: Patient denies any tobacco usage or history of. Patient/guardian denies using alcohol, street drugs. - Ebola Screening: : Patient negative for fever greater than or equal to 101.5 degrees Fahrenheit, and additional compatible Ebola Virus Disease symptoms Patient denies exposure to infectious person Patient denies travel to an Ebola-affected area in the 21 days before illness onset No symptoms or risks identified at this time. Screenin:34 Abuse screen: Denies threats or abuse. Denies injuries from another. Nutritional jl7 screening: No deficits noted. Tuberculosis screening: No symptoms or risk factors identified. Fall Risk IV access (20 points). Total Leon Fall Scale indicates No Risk (0-24 pts). Assessment: 13:00 General: Appears in no apparent distress. uncomfortable, Behavior is calm, cooperative, jl7 appropriate for age. Pain: Complains of pain in right leg and left leg Pain currently is 0 out of 10 on a pain scale. at worst was 8 out of 10 on a pain scale. Quality of pain is described as shooting, stabbing, Pain began months ago. Neuro: Level of Consciousness is awake, alert, obeys commands, Oriented to person, place, time, situation. Cardiovascular: Rhythm is regular. Respiratory: Airway is patent Respiratory effort is even, unlabored, Respiratory pattern is regular, symmetrical, Breath sounds are clear bilaterally. Derm: Skin is dry, Skin is normal, Skin temperature is warm. 14:00 Reassessment: Patient appears in no apparent distress at this time. No changes from jl7 previously documented assessment. Patient and/or family updated on plan of care and expected duration. Pain level reassessed. Patient is alert, oriented x 3, equal unlabored respirations, skin warm/dry/pink. 15:30 Reassessment: Patient appears in no apparent distress at this time. No changes from jl7 previously documented assessment. Patient and/or family updated on plan of care and expected duration. Pain level reassessed. Patient is alert, oriented x 3, equal unlabored respirations, skin warm/dry/pink. Vital Signs: 12:51 BP 191 / 99; Pulse 77; Resp 22; Temp 98.4; Pulse Ox 99% on R/A; Weight 151.95 kg; Height 6 ft. 1 in. (185.42 cm); Pain 8/10; 14:30 BP 159 / 107; Pulse 70; Resp 19 S; Pulse Ox 100% on R/A; Pain 0/10; jl7 15:46 BP 194 / 99; Pulse 75; Resp 19 S; Pulse Ox 100% on R/A; jl7 12:51 Body Mass Index 44.20 (151.95 kg, 185.42 cm) ED Course: 12:26 Patient arrived in ED. as 12:49 Triage completed. 12:51 Arm band placed on left wrist. Patient placed in an exam room, on a stretcher. 12:56 Debo Walls, OG is Primary Nurse. jl7 12:56 Cornel Snyder PA is PHCP. cp 12:56 Trey Mcconnell MD is Attending Physician. cp 13:34 Patient has correct armband on for positive identification. Placed in gown. Bed in low jl7 position. Call light in reach. Side rails up X 1. 13:34 Initial lab(s) drawn, by ia, sent to lab. Inserted saline lock: 20 gauge in right jl7 forearm, using aseptic technique. Blood collected. 14:01 Notified Nurse Practitioner and/or Physician Die Welder of a critical lab result(s), HGB ss 5.8, HEMATOCRIT 18.0. 14:05 EKG done, by solar fabrication technician. reviewed by Cornel OLIVER. at1 14:08 Notified Nurse Practitioner and/or Physician Die Welder of a critical lab result(s), sg Creatinine 14.6. 15:10 Mark Barba DO is Hospitalizing Provider. cp 15:14 Type And Screen Sent. jl7 15:30 Admitting physician to see patient. jl7 15:46 No provider procedures requiring assistance completed. Patient admitted, IV remains in jl7 place. intact, No redness/swelling at site. Administered Medications: 15:28 Not Given (Other Intervention Used): Lasix 60 mg IVP once jl7 15:50 Drug: Lasix 40 mg Route: IVP; Site: right forearm; jl7 16:00 Follow up: Response: No adverse reaction jl7 Outcome: 15:11 Decision to Hospitalize by Provider. cp 15:46 Admitted to Tele accompanied by tech, family with patient, via wheelchair, room 410, jl7 with chart, Report called to OG Matthews 15:46 Condition: stable 15:46 Discharge instructions given to patient, family, Instructed on the need for admit, Demonstrated understanding of instructions. 16:09 Patient left the ED. jl7 Signatures: Marie Corona, RN Wes Martinez ch, RN RN sg Martinez, Amelia as Smirch, Shelby, RN RN ss Harini Castaneda, track grinder EKG Tat1 Cornel Snyder PA PA cp Leal, Jahala, RN RN jl7 Corrections: (The following items were deleted from the chart) 15:11 15:08 Reassessment: Pt is in US, will be discharged once he returns mali [id number]
--- NOTE | 2019-07-29 15:15 | RAD REPORT ---
EXAM DESCRIPTION: USExtrem Venous W Compress Bil07/29/2019 3:07 pm CLINICAL HISTORY: Bilateral leg swelling COMPARISON: 2009 FINDINGS: The common femoral, superficial femoral, popliteal and posterior tibial veins bilaterally are compressible and demonstrate augmentation. Doppler demonstrates good flow. IMPRESSION: No evidence of deep venous thrombosis involving either lower extremity.
[2019-07-29] MEDS ORDERED: ACETAMINOPHEN 500 MG TAB PO PRN (15:40)
[2019-07-29] MEDS ORDERED: ONDANSETRON 4 MG/2 ML VIAL IV PRN (15:40)
[2019-07-29] MEDS ORDERED: FUROSEMIDE 40 MG/4 ML VIAL ONE (15:42)
--- NOTE | 2019-07-29 15:46 | P.HP ---
Certification for Inpatient Patient admitted to: Inpatient With expected LOS: >2 Midnights Patient will require the following post-hospital care: Other (Set up hemodialysis as an outpatient) Practitioner: I am a practitioner with admitting privileges, knowledge of patient current condition, hospital course, and medical plan of care. Services: Services provided to patient in accordance with Admission requirements found in Title 42 Section 412.3 of the Code of Federal Regulations Patient History Date of Service: 07/29/19 Primary Care Provider: Dr. Culp Reason for admission: Shortness of breath, edema to the lower extremities History of Present Illness: 49-year-old male with history of hypertension, end-stage renal disease with peritoneal dialysis. Patient has reported increased shortness of breath and edema to the lower extremity. Patient with history of end-stage renal disease on peritoneal dialysis. Patient has had poor compliance likely related to his blindness related to retinal detachments. Nephrology has been working with patient to set up arrangements to place hemodialysis catheter as an outpatient. Patient was to have hemodialysis catheter placed early next week. Over the last several days he has been having increasing shortness of breath and edema. He could no longer wait. He came to the ER for further evaluation. Patient denied any fever, chills, nausea or vomiting. In the ER patient evaluated. White count 3.9, hemoglobin 5.8, platelet count 195. Sodium 140, potassium 4.2, BUN of 97, creatinine 14.6, GFR 4. Glucose 124. BNP elevated greater than 20,000. Chest x-ray showed some volume overload. Patient given Lasix in the emergency room. Repeat H&H obtain. Patient will be admitted for further evaluation and treatment. When I saw the patient in the emergency room, he appeared stable. No significant shortness of breath noted. Patient understands that he will require hemodialysis. Allergies morphine Allergy (Mild, Verified 12/03/11 11:32) Hives/Rash Home medications list reviewed: Yes Home Medications: Hydralazine HCl 50 mg PO TID 05/03/19 NIFEdipine [Nifedipine ER] 60 mg PO BID 05/03/19 carvediloL [Coreg*] 12.5 mg PO BID 05/03/19 Calcitrol [Rocaltrol*] 0.5 mcg PO DAILY #30 cap 05/14/19 Doxazosin [Cardura*] 4 mg PO BID #60 tab 05/14/19 Na Bicarb Tab [Sodium Bicarb 325 MG Tab*] 650 mg PO QID #120 tab 05/14/19 - Past Medical/Surgical History Diabetic: Yes -: HTN -: End-stage renal disease on hemodialysis -: Blindness related to retinal detachment -: Obesity -: Diastolic CHF -: Anemia of chronic disease -: I&D head abscess -: bilat knee repair -: Peritoneal dialysis catheter placement Psychosocial/ Personal History: Patient lives with his mother - Family History Mother -: Hypertension Brother -: Diabetes - Social History Smoking Status: Never smoker Alcohol use: No CD- Drugs: No Caffeine use: Yes Place of Residence: Home Review of Systems General: Weakness, As per HPI Eyes: Unremarkable Respiratory: Shortness of Breath, As per HPI Cardiovascular: Edema, As per HPI Gastrointestinal: Unremarkable Genitourinary: Unremarkable Musculoskeletal: Pedal edema, As per HPI Integumentary: As per HPI Neurological: Unremarkable Lymphatics: Unremarkable Physical Examination - Physical Exam General: Alert, In no apparent distress, Oriented x3, Cooperative HEENT: Atraumatic, Normocephalic, Mucous membr. moist/pink Neck: Supple Respiratory: Diminished (Diminished to the bases) Cardiovascular: Normal pulses, Regular rate/rhythm Gastrointestinal: Normal bowel sounds, Soft and benign, No rebound, No guarding Musculoskeletal: No erythema, No warmth Integumentary: Tenderness/swelling (2+ pitting edema to the lower extremities bilateral) Neurological: Normal speech, Normal strength at 5/5 x4 extr, Normal tone, Normal affect Lymphatics: No axilla or inguinal lymphadenopathy - Studies Laboratory Data (last 24 hrs) 07/29/19 13:30: PT 14.1 H, INR 1.20 07/29/19 13:30: WBC 3.9 L, Hgb 5.8 L*, Hct 18.0 L*, Plt Count 195 07/29/19 13:30: Sodium 140, Potassium 4.2, BUN 97 H, Creatinine 14.60 H*, Glucose 124 H, Magnesium 1.9, Total Bilirubin 0.2, AST 10 L, ALT 13, Alkaline Phosphatase 59 Assessment and Plan - Plan Impression: Shortness of breath secondary to pulmonary edema related to end-stage renal disease on peritoneal dialysis complicated with underlying acute on chronic diastolic CHF Anemia of chronic disease Hypertension Poor compliance with peritoneal dialysis 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 Fall precautions in place. Plan: Shortness of breath secondary to pulmonary edema related to end-stage renal disease on peritoneal dialysis complicated with underlying acute on chronic diastolic CHF: Patient be admitted for further evaluation and treatment. Case discussed with nephrology. Patient has been non compliant with peritoneal dialysis due to his blindness. Arrangements were being made to start hemodialysis. Will make arrangements for set up of hemodialysis in the hospital then transition to outpatient hemodialysis. Will consult social service liaison to help in this process. Will have surgery consulted to have permanent hemodialysis catheter placed an with removal of peritoneal dialysis catheter. Patient agreement with initiation of hemodialysis. Will continue 1500 cc per day fluid restriction and low-salt diet. Will continue with IV Lasix. Will monitor closely. Patient with anemia. Will give likely 1 unit of blood at this time then another unit with dialysis. Will maintain hemoglobin above 7.0. Will continue to monitor closely. Likely discharge once hemodialysis is arranged as an outpatient. Anemia of chronic disease: Recheck hemoglobin. If still below 7 will transfuse 1 unit of blood. Maintain hemoglobin above 7.0. Patient may require further transfusion with hemodialysis. Hypertension: Restart home medication of Doxazosin 8 mg twice daily, nifedipine 60 mg 1 pill twice daily. 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 Fall precautions in place. Discharge Plan: Home Plan to discharge in: Greater than 2 days - Advance Directives Does patient have a Living Will: No Does patient have a Durable POA for Healthcare: No - Code Status/Comfort Care Code Status Assessed: Yes (Patient is full code) Time Spent Managing Pts Care (In Minutes): 55
[2019-07-29 16:02] LABS: Hematocrit 17.8 % (39.6-49.0)
[2019-07-29 16:22] VITALS: BMI 44.1
--- NOTE | 2019-07-29 17:17 | EKG ---
Test Date: 2019-07-29 Test Time: 13:46:35 Tube Room Cashier: KELLEE MEASUREMENT RESULTS: Intervals: Rate: 78 MA: 134 QRSD: 98 QT: 388 QTc: 442 [place]: P: 62 MA: 134 QRS: -24 T: 79 INTERPRETIVE STATEMENTS: Normal sinus rhythm Nonspecific T wave abnormality Abnormal ECG Compared to ECG 08/14/2016 21:23:45 Left-axis deviation no longer present T-wave abnormality still present Electronically Signed On 07-29-19 17:16:58 TUB RIDER by Abelino Torres
[2019-07-29] MEDS: FUROSEMIDE 100 MG/10 ML VIAL IV SCH (17:20)
[2019-07-29] MEDS ORDERED: TRAMADOL HCL 50 MG TAB PO PRN (17:27)
[2019-07-29] MEDS: HYDROCODONE/APAP 7.5/325 MG TAB PO PRN (17:52)
[2019-07-29] MEDS ORDERED: NA CHLORIDE 0.9% 250 ML ONE (17:52)
[2019-07-29] MEDS: DOXAZOSIN 4 MG TAB PO SCH (18:08)
[2019-07-29] MEDS: NIFEDIPINE XL 60 MG TABLET PO SCH (18:09)
[2019-07-29] MEDS: HYDRALAZINE HCL 25 MG TABLET PO SCH (18:14)
[2019-07-29] MEDS: HEPARIN 5000 UNIT/ML 1 ML VIAL SQ SCH (20:23)
[2019-07-29] MEDS ORDERED: FUROSEMIDE 20 MG/ 2ML VIAL IV ONE (21:05)
[2019-07-29 23:24] LABS: Hematocrit 18.2 % (39.6-49.0)
[2019-07-30] MEDS: HYDRALAZINE HCL 20 MG/ML VIAL IV PRN ×3 (00:27→16:05)
[2019-07-30] MEDS ORDERED: FUROSEMIDE 40 MG/4 ML VIAL IV ONE (01:06)
[2019-07-30] MEDS ORDERED: HYDRALAZINE HCL 20 MG/ML VIAL IV PRN (01:52)
[2019-07-30] MEDS: AMLODIPINE 10 MG TAB PO SCH ×3 (02:00→11:33)
[2019-07-30 04:36] LABS: Absolute Lymphocytes (CBC) 0.4 K/uL (0.7-4.9); Basophils % 1.2 % (0-1.3); Lymphocytes % 9.8 % (15.3-44.8); MPV 8.1 fL (7.6-11.3); RBC Red Blood Cell Count 2.17 M/uL (4.33-5.43)
[2019-07-30 04:37] LABS: Hematocrit 18.7 % (39.6-49.0)
[2019-07-30 05:10] LABS: Magnesium 1.9 mg/dL (1.8-2.4); Potassium 4.3 mmol/L (3.5-5.1); Thyroid Stimulating Hormone 2.43 uIU/mL (0.360-3.740)
--- NOTE | 2019-07-30 06:54 | RAD REPORT ---
EXAM DESCRIPTION: RAD - Chest Pa And Lat (2 Views) - 07/30/2019 6:09 am CLINICAL HISTORY: Follow up pulmonary edema Chest pain. COMPARISON: Chest Pa And Lat (2 Views) dated 07/29/2019; Chest Pa And Lat (2 Views) dated 02/20/2019; C hest Pa And Lat (2 Views) dated 12/04/2018; Chest Single View dated 08/14/2016 FINDINGS: No significant change in lung aeration seen since 07/29/2019. Mild chronic bilateral inter stitial lung opacities persist. Small right pleural effusion persists. The heart is mildly to moderat sidra enlarged. IMPRESSION: Stable chest since preceding day's examination.
--- NOTE | 2019-07-30 08:58 | P.PN ---
Subjective Date of Service: 07/30/19 Primary Care Provider: Dr. Culp Chief Complaint: Shortness of breath, edema to the lower extremities Subjective: Improving, Doing well Physical Examination - Vital Signs Temperature: 97.6 F Blood Pressure: 152/83 Pulse: 75 Respirations: 16 Pulse Ox (%): 94 - Physical Exam General: Alert, In no apparent distress, Cooperative HEENT: Atraumatic Neck: Supple Respiratory: Clear to auscultation bilaterally Cardiovascular: Normal pulses, Regular rate/rhythm Gastrointestinal: Normal bowel sounds, Soft and benign, Non-distended Integumentary: Tenderness/swelling (Edema to the lower extremities noted) Neurological: Normal speech, Normal strength at 5/5 x4 extr, Normal tone - Studies Laboratory Data (last 24 hrs) 07/29/19 13:30: PT 14.1 H, INR 1.20 07/29/19 13:30: WBC 3.9 L, Hgb 5.8 L*, Hct 18.0 L*, Plt Count 195 07/29/19 13:30: Sodium 140, Potassium 4.2, BUN 97 H, Creatinine 14.60 H*, Glucose 124 H, Magnesium 1.9, Total Bilirubin 0.2, AST 10 L, ALT 13, Alkaline Phosphatase 59 Medications List Reviewed: Yes Assessment & Plan Discharge Plan: Home Plan to discharge in: Greater than 2 days Physician Review Additional Text: Impression: Shortness of breath secondary to pulmonary edema related to end-stage renal disease on peritoneal dialysis complicated with underlying acute on chronic diastolic CHF Anemia of chronic disease Hypertension Poor compliance with peritoneal dialysis 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 Fall precautions in place. Plan: Shortness of breath secondary to pulmonary edema related to end-stage renal disease on peritoneal dialysis complicated with underlying acute on chronic diastolic CHF: Patient currently NPO in anticipation for permanent hemodialysis catheter placement and removal of peritoneal dialysis catheter. Case discussed with surgery yesterday. Case also discussed with nephrology yesterday. Patient will require hemodialysis. Arrangements for outpatient hemodialysis will need to be arranged. Will discuss further with social media content specialist. Will continue 1500 cc per day fluid restriction and low-salt diet. Will continue with IV Lasix. Patient received 1 unit of blood with improvement. Patient will receive another unit of blood once hemodialysis arranged to maintain hemoglobin above 7.0. Anticipate discharge later this week once hemodialysis as an outpatient is arranged. I will turn the service over to the hospitalist team tomorrow. I will go over the plan of care with him. Anemia of chronic disease: Patient received 1 unit of blood. Hemoglobin 6.1. Patient will receive another unit of blood once hemodialysis is initiated. Maintain hemoglobin above 7.0. Will continue to monitor closely. Hypertension: Continue home medications of hydralazine, Doxazosin 8 mg twice daily, nifedipine 60 mg 1 pill twice daily. 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 Fall precautions in place. Time Spent Managing Pts Care (In Minutes): 55
[2019-07-30] MEDS: DOXAZOSIN 4 MG TAB PO SCH ×3 (09:00→20:44)
[2019-07-30] MEDS: ISOSORBIDE MONO SR 60 MG TAB PO SCH (09:00)
[2019-07-30] MEDS: NIFEDIPINE XL 60 MG TABLET PO SCH ×3 (09:00→20:45)
[2019-07-30] MEDS: HYDRALAZINE HCL 25 MG TABLET PO SCH ×3 (09:00→20:44)
[2019-07-30] MEDS: HEPARIN 5000 UNIT/ML 1 ML VIAL SQ SCH ×2 (09:00→20:44)
[2019-07-30] MEDS: FUROSEMIDE 100 MG/10 ML VIAL IV SCH ×2 (09:03→16:04)
[2019-07-30] MEDS: HYDROCODONE/APAP 7.5/325 MG TAB PO PRN ×2 (11:32→20:44)
--- NOTE | 2019-07-30 12:42 | ECHO ---
HEIGHT: 6 ft 1 in WEIGHT: 335 lb 0 oz DATE OF STUDY: 07/30/[address]: Mark Barba DO 2-DIMENSIONAL: YES M.MODE: YES DOPPLER: YES COLOR FLOW: YES TDS: NO PORTABLE: NO DEFINITY: NO BUBBLE STUDY: NO DIAGNOSIS: EVALUATE FOR CONGESTIVE HEART FAILURE CARDIAC HISTORY: CATHERIZATION: NO SURGERY: NO PROSTHETIC VALVE: NO PACEMAKER: NO MEASUREMENTS (cm) DIASTOLIC (NORMALS) SYSTOLIC (NORMALS) IVSd 1.3 (0.6-1.2) LA Diam 5.0 (1.9-4.0) LVEF 55% LVIDd 6.1 (3.5-5.7) LVIDs 4.4 (2.0-3.5) %FS 29% LVPWd 1.4 (0.6-1.2) Ao Diam 3.2 (2.0-3.7) 2 DIMENSIONAL ASSESSMENT: RIGHT ATRIUM: NORMAL LEFT ATRIUM: NORMAL RIGHT VENTRICLE: NORMAL LEFT VENTRICLE: LEFT VENTRICULAR HYPERTROPHY TRICUSPID VALVE: NORMAL MITRAL VALVE: MITRAL ANNULAR CALCIFICATION PULMONIC VALVE: NORMAL AORTIC VALVE: NORMAL PERICARDIAL EFFUSION: NONE AORTIC ROOT: NORMAL LEFT VENTRICULAR WALL MOTION: NORMAL DOPPLER/COLOR FLOW: MILD MITRAL AND TRICUSPID REGURGITATION. MODERATE TO SEVERE PULMONARY HYPERTENSION. ESTIMATED RIGHT VENTRICULAR SYSTOLIC PRESSURE 60 mmHg. COMMENTS: NORMAL LEFT VENTRICULAR EJECTION FRACTION. MITRAL ANNULAR CALCIFICATION. LEFT VENTRICULAR HYPERTROPHY. MODERATE TO SEVERE PULMONARY HYPERTENSION. MILD MITRAL AND TRICUSPID REGURGITATION. TECHNOLOGIST: German SOLANO
[2019-07-30] MEDS ORDERED: NA CHLORIDE 0.9% 250 ML ONE (21:13)
--- NOTE | 2019-07-30 22:05 | P.CNS ---
Date of Consult: 07/30/19 Reason for Consult: CKD V Requesting Physician: Mark Barba Primary Care Provider: Dr. Culp Chief Complaint: Shortness of breath, edema to the lower extremities History of Present Illness: 49-year-old male with history of hypertension, end-stage renal disease with peritoneal dialysis. Patient has reported increased shortness of breath and edema to the lower extremity. Patient with history of end-stage renal disease on peritoneal dialysis. Patient has had poor compliance likely related to his blindness related to retinal detachments. Nephrology has been working with patient to set up arrangements to place hemodialysis catheter as an outpatient. Patient was to have hemodialysis catheter placed early next week. Over the last several days he has been having increasing shortness of breath and edema. He could no longer wait. He came to the ER for further evaluation. Patient denied any fever, chills, nausea or vomiting. 13:25 This 49 yrs old Black Male presents to ER via Ambulatory with complaints of Shortness cp Of Breath, Breathing Difficulty, Leg Pain. 13:25 The patient has shortness of breath with light activity. cp 13:25 Onset: The symptoms/episode began/occurred gradually, for past few days. Duration: The cp symptoms are continuous, and are steadily getting worse. Associated signs and symptoms: Pertinent positives: swelling of lower legs, Pertinent negatives: chest pain, productive cough, diaphoresis, fever. Allergies morphine Allergy (Mild, Verified 12/03/11 11:32) Hives/Rash Home medications list reviewed: Yes Home Medications: Hydralazine HCl 50 mg PO BID 05/03/19 NIFEdipine [Nifedipine ER] 60 mg PO BID 05/03/19 Calcitrol [Rocaltrol*] 0.5 mcg PO BID 07/29/19 Doxazosin [Cardura*] 8 mg PO BID 07/29/19 Furosemide 1 tab PO BID 07/29/19 Isosorbide Dinit [Isordil*] 1 tab PO DAILY 07/29/19 Na Bicarb Tab [Sodium Bicarb 325 MG Tab*] 650 mg PO BID 07/29/19 Sildenafil Citrate 1 tab PO DAILY 07/29/19 - Past Medical/Surgical History Diabetic: Yes -: HTN -: End-stage renal disease on hemodialysis -: Blindness related to retinal detachment -: Obesity -: Diastolic CHF -: Anemia of chronic disease -: I&D head abscess -: bilateral knee repair -: Peritoneal dialysis catheter placement -: retinal surgery Psychosocial/ Personal History: Patient lives with his mother - Family History Mother Medical History: Hypertension Brother Medical History: Diabetes - Social History Smoking Status: Unknown if ever smoked Alcohol use: No CD- Drugs: No Caffeine use: No Place of Residence: Home Review of Systems 10-point ROS is otherwise unremarkable General: Malaise Respiratory: SOB with Excertion Cardiovascular: Edema Physical Examination Temp Pulse Resp BP Pulse Ox 97.3 F 77 16 175/94 H 98 07/30/19 20:00 07/30/19 20:45 07/30/19 20:44 07/30/19 20:45 07/30/19 20:44 General: In no apparent distress, Oriented x3, Cooperative HEENT: Atraumatic Neck: Supple Respiratory: Clear to auscultation bilaterally, Normal air movement Cardiovascular: Regular rate/rhythm, Edema Gastrointestinal: Soft and benign, Non-distended Musculoskeletal: No clubbing, No contractures Integumentary: No rashes, No cyanosis Neurological: Normal speech Blood work reviewed in the chart. Imagings Data: EXAM DESCRIPTION: RAD - Chest Pa And Lat (2 Views) - 07/30/2019 6:09 am CLINICAL HISTORY: Follow up pulmonary edema Chest pain. COMPARISON: Chest Pa And Lat (2 Views) dated 07/29/2019; Chest Pa And Lat (2 Views) dated 02/20/2019; Chest Pa And Lat (2 Views) dated 12/04/2018; Chest Single View dated 08/14/2016 FINDINGS: No significant change in lung aeration seen since 07/29/2019. Mild chronic bilateral interstitial lung opacities persist. Small right pleural effusion persists. The heart is mildly to moderately enlarged. IMPRESSION: Stable chest since preceding day's examination. LEFT VENTRICULAR WALL MOTION: NORMAL DOPPLER/COLOR FLOW: MILD MITRAL AND TRICUSPID REGURGITATION. MODERATE TO SEVERE PULMONARY HYPERTENSION. ESTIMATED RIGHT VENTRICULAR SYSTOLIC PRESSURE 60 mmHg. COMMENTS: NORMAL LEFT VENTRICULAR EJECTION FRACTION. MITRAL ANNULAR CALCIFICATION. LEFT VENTRICULAR HYPERTROPHY. MODERATE TO SEVERE PULMONARY HYPERTENSION. MILD MITRAL AND TRICUSPID REGURGITATION. Conclusions/Impression: A/ CKD V/ ESRD Acidosis Hypocalcemia DM II with CKD HTN with CKD/ CHF. Diastolic CHF, chronic. Anemia in CKD. MICHELLE/ Secondary HyperPTH. Moderate Malnutrition. P/ Continue current POC and Medications. PRBC transfusion as ordered. Give with Lasix. Surgery consult. Arrange for Tunneled CVC for HD. Arrange for PD catheter removal. Restart home medications as indicated. No NSAIDs. AM labs. Daily weight. Thank you kindly for the consultation. Case discussed with Dr. Barba.
[2019-07-31] MEDS ORDERED: FUROSEMIDE 20 MG/ 2ML VIAL IV ONE (01:00)
[2019-07-31 04:23] LABS: Absolute Lymphocytes (CBC) 0.4 K/uL (0.7-4.9); Basophils % 1.1 % (0-1.3); Lymphocytes % 9.8 % (15.3-44.8); MPV 8.5 fL (7.6-11.3); RBC Red Blood Cell Count 2.35 M/uL (4.33-5.43)
[2019-07-31 04:30] LABS: Hematocrit 19.9 % (39.6-49.0)
[2019-07-31 05:03] LABS: Potassium 4.5 mmol/L (3.5-5.1)
[2019-07-31] MEDS ORDERED: NA CHLORIDE 0.9% 1,000 ML IV PRN (06:35)
[2019-07-31] MEDS ORDERED: MANNITOL 25% 12.5 GM/50 ML VIAL IV PRN (06:35)
[2019-07-31] MEDS ORDERED: EPOETIN ALFA 20,000 UNIT/1 ML VIAL SQ SCH (06:45)
[2019-07-31] MEDS ORDERED: ALBUMIN HUMAN 25% 50 ML IV SCH (07:00)
[2019-07-31] MEDS ORDERED: NS 0.9% VIAL 10 ML ONE (07:20)
[2019-07-31] MEDS ORDERED: HEPARIN 5000 UNIT/ML 1 ML VIAL ONE (07:20)
[2019-07-31] MEDS ORDERED: NA CHLORIDE 0.9% 100 ML IV ONE ×2 (07:21→08:17)
[2019-07-31] MEDS ORDERED: LIDOCAINE 1% MPF 30 ML VIAL ONE (07:21)
[2019-07-31] MEDS ORDERED: LIDOCAINE 2% MPF 5 ML VIAL ONE (07:24)
[2019-07-31] MEDS ORDERED: FENTANYL CITR 100 MCG/2 ML ONE (07:24)
[2019-07-31] MEDS ORDERED: propofoL 200 MG/20 ML VIAL IV ONE (07:24)
[2019-07-31] MEDS ORDERED: MIDAZOLAM HCL 2 MG/2 ML INJ ONE (07:25)
[2019-07-31] MEDS ORDERED: NA CHLORIDE 0.9% 500 ML ONE (07:51)
[2019-07-31] MEDS ORDERED: CEFAZOLIN/SWI 1gm 1 GM/10 ML SYR ONE (08:10)
[2019-07-31] MEDS ORDERED: Phenylephrine HCl 10 MG/ML 1 ML VIAL ONE (08:15)
--- NOTE | 2019-07-31 09:07 | P.BOP ---
Preoperative diagnosis: ESRD, obesity, anemia Postoperative diagnosis: same Primary procedure: 1. Placement of Hemosplit hemodialysis cath Secondary procedure: 2. interpretation of fluoroscopy Other procedure(s): 3. right neck ultrasound Estimated blood loss: < 30cc Specimen: nobe Findings: as above Anesthesia: General Complications: None Implants: hemosplit on RIJ vein Transferred to: Recovery Room Condition: Good
[2019-07-31] MEDS ORDERED: ONDANSETRON 4 MG/2 ML VIAL ONE (09:28)
[2019-07-31] MEDS: FENTANYL CITR 100 MCG/2 ML ONE ×4 (09:40→10:10)
--- NOTE | 2019-07-31 09:51 | RAD REPORT ---
EXAM DESCRIPTION: RAD - Fluoroscopy <1 Hour - 07/31/2019 9:32 am CLINICAL HISTORY: Device placement central venous catheter placement FINDINGS: A central venous catheter was placed into the superior vena cava. Fourteen fluoroscopic sp ot images are submitted. The examination was performed by Dr. Maynard Fluoroscopy 0.3 minutes
--- NOTE | 2019-07-31 10:24 | RAD REPORT ---
EXAM DESCRIPTION: RAD - Chest Single View - 07/31/2019 9:58 am CLINICAL HISTORY: POST HD CATH INSERTION Chest pain. COMPARISON: Chest Pa And Lat (2 Views) dated 07/30/2019; Chest Pa And Lat (2 Views) dated 07/29/2019; Ch est Pa And Lat (2 Views) dated 02/20/2019; Chest Pa And Lat (2 Views) dated 12/04/2018 FINDINGS: Portable technique limits examination quality. Mild interstitial pulmonary edema seen. No postprocedure pneumothorax. The heart is moderately enlar ged in size with a small pleural effusions. Right-sided venous catheter has tip in the SVC. IMPRESSION: No postprocedure pneumothorax.
[2019-07-31] MEDS: FUROSEMIDE 100 MG/10 ML VIAL IV SCH (10:49)
[2019-07-31] MEDS: AMLODIPINE 10 MG TAB PO SCH (10:49)
[2019-07-31] MEDS: CALCITROL 0.25 MCG CAP PO SCH (10:50)
[2019-07-31] MEDS: DOXAZOSIN 4 MG TAB PO SCH ×2 (10:50→23:39)
[2019-07-31] MEDS: VITAMIN D 5,000 UNIT CAP PO SCH (10:50)
[2019-07-31] MEDS: HYDRALAZINE HCL 25 MG TABLET PO SCH ×2 (10:50→23:39)
[2019-07-31] MEDS: SEVELAMER CARBONATE 800 MG TABLET PO SCH ×3 (10:51→16:23)
[2019-07-31] MEDS: HEPARIN 5000 UNIT/ML 1 ML VIAL SQ SCH ×2 (10:51→23:40)
[2019-07-31] MEDS: ISOSORBIDE MONO SR 60 MG TAB PO SCH (10:51)
[2019-07-31] MEDS: NIFEDIPINE XL 60 MG TABLET PO SCH ×2 (10:53→23:39)
--- NOTE | 2019-07-31 11:55 | CON ---
Reason For Consult: Hemodialysis catheter placement. History Of Present Illness: This is the case of a 49-year-old patient, known by the surgical service s several months ago. He went into renal failure. He had a peritoneal dialysis catheter placed jessica ral months before but never received a hemodialysis catheter even though the renal doctor was recomme nding that for many months. Apparently, after that he came with an infection in his abdomen, the inf ection was taken care of. He was once again advised by renal doctor about the proper use of non-hemo dialysis peritoneal dialysis catheter so the hemodialysis was put on hold. Now, he comes at this [facility] once again with renal failure and they want a hemodialysis catheter. Also, explained to him before the pros and cons of a hemodialysis catheters were just once again discussed with the patient. His abdominal infection is resolved, but his peritoneal dialysis is not sufficient apparently. Review of Systems: Ten points otherwise unremarkable. Allergies: MORPHINE. Past Surgical History: Include the peritoneal dialysis catheter, history of abscess on the abdominal wall, status post I and D. Medical Problems: Include end-stage renal disease, hypocalcemia, diabetes, hypertension, congestive heart failure, morbid obesity, partial blindness. Family History: Includes hypertension and diabetes. Social History: He does not smoke. He does not drink alcohol. Physical Examination: General: Patient is awake and alert. HEENT: Pupils anicteric. Neck: Supple. Chest: Clear. Abdomen: Soft and depressible. Nontender, nondistended. Peritoneal dialysis in place. Extremities : Good capillary refill. Rectal: Deferred. Blood Work: Patient came initially with hemoglobin of 5.8, after 1 unit of blood came to 6.1. INR i s 1.2. Creatinine is 14.4 with a potassium 4.3. Assessment: 49-year-old patient, that needs hemodialysis catheter. Patient is anemic, they are maura g to try to give another blood transfusion and have blood available in the blood bank. The benefit a nd risks of a hemodialysis catheter were fully explained to the patient, which include but are not li mited to infection, bleeding, damage to adjacent structures, anesthesia complication, pneumothorax, h emothorax, cardiac arrhythmias, MO, even . He also understands this may not relieve the symptom s. He might need more than one surgical intervention. I discussed the case with the primary doctor who is going to be giving him blood transfusion to optimize him the best he can. /MODL Voice ID: [id number] Report ID: [id number]
[2019-07-31] MEDS: HYDROCODONE/APAP 7.5/325 MG TAB PO PRN ×2 (13:47→23:39)
--- NOTE | 2019-07-31 14:05 | P.PN ---
Subjective Date of Service: 07/31/19 Primary Care Provider: Dr. Culp Chief Complaint: Shortness of breath, edema to the lower extremities Subjective: No new changes (seen post cathter placement -feels sleepy - deniesn any pain over site , no nx or vx) Review of Systems is unable to be obtained (poor due to drowsy) Physical Examination - Vital Signs Temperature: 97.1 F Blood Pressure: 141/74 Pulse: 70 Respirations: 16 Pulse Ox (%): 100 - Physical Exam General: In no apparent distress, Oriented x3 HEENT: Atraumatic, Normocephalic Neck: Supple, JVD distended Respiratory: Diminished, Crackles/rales Cardiovascular: Normal pulses, Regular rate/rhythm, Normal S1 S2, Edema Gastrointestinal: Normal bowel sounds, Soft and benign, Non-distended, No ascites Musculoskeletal: No clubbing, No swelling Neurological: Normal speech, Normal tone Urinary: Dialysis catheter (right chest wall ) - Studies Laboratory Last Values WBC 4.2 K/uL (4.3-10.9) L D 07/31/19 04:04 RBC 2.35 M/uL (4.33-5.43) L 07/31/19 04:04 Hgb 6.5 g/dL (13.6-17.9) L* 07/31/19 04:04 Hct 19.9 % (39.6-49.0) L* 07/31/19 04:04 MCV 84.7 fL (80-100) 07/31/19 04:04 MCH 27.5 pg (27.0-35.0) 07/31/19 04:04 MCHC 32.5 g/dL (32.0-36.0) 07/31/19 04:04 RDW 17.5 % (12.1-15.2) H 07/31/19 04:04 Plt Count 183 K/uL (152-406) 07/31/19 04:04 MPV 8.5 fL (7.6-11.3) 07/31/19 04:04 Neutrophils % 72.9 % (41.7-73.7) 07/31/19 04:04 Lymphocytes % 9.8 % (15.3-44.8) L 07/31/19 04:04 Monocytes % 11.2 % (3.3-12.3) 07/31/19 04:04 Eosinophils % 5.0 % (0-4.4) H 07/31/19 04:04 Basophils % 1.1 % (0-1.3) 07/31/19 04:04 Absolute Neutrophils 3.1 K/uL (1.8-8.0) 07/31/19 04:04 Absolute Lymphocytes 0.4 K/uL (0.7-4.9) L 07/31/19 04:04 Absolute Monocytes 0.5 K/uL (0.1-1.3) 07/31/19 04:04 Absolute Eosinophils 0.2 K/uL (0-0.5) 07/31/19 04:04 Absolute Basophils 0.0 K/uL (0-0.5) 07/31/19 04:04 PT 14.1 SECONDS (9.5-12.5) H 07/29/19 13:30 INR 1.20 07/29/19 13:30 Sodium 141 mmol/L (136-145) 07/31/19 04:04 Potassium 4.5 mmol/L (3.5-5.1) 07/31/19 04:04 Chloride 111 mmol/L (98-107) H 07/31/19 04:04 Carbon Dioxide 19 mmol/L (21-32) L 07/31/19 04:04 BUN 103 mg/dL (7-18) H 07/31/19 04:04 Creatinine 14.70 mg/dL (0.55-1.3) H* 07/31/19 04:04 Estimated GFR 4 mL/min (=/>90) L 07/31/19 04:04 Glucose 107 mg/dL (74-106) H 07/31/19 04:04 POC Glucose 105 mg/dl (65-120) 07/31/19 11:09 Calcium 7.6 mg/dL (8.5-10.1) L 07/31/19 04:04 Magnesium 2.0 mg/dL (1.8-2.4) 07/31/19 04:04 Total Bilirubin 0.2 mg/dL (0.2-1.0) 07/29/19 13:30 Direct Bilirubin < 0.1 mg/dL (0-0.2) 07/29/19 13:30 AST 10 U/L (15-37) L 07/29/19 13:30 ALT 13 U/L (12-78) 07/29/19 13:30 Alkaline Phosphatase 59 U/L (45-117) 07/29/19 13:30 Rapid Troponin I 0.03 ng/mL (0.0-0.045) 07/29/19 13:30 NT-Pro-B Natriuret Pep 78969 pg/mL (<125) H 07/29/19 13:30 Serum Total Protein 6.9 g/dL (6.4-8.2) 07/29/19 13:30 Albumin 2.9 g/dL (3.4-5.0) L 07/29/19 13:30 Globulin 4.0 g/dL (2.3-3.5) H 07/29/19 13:30 Albumin/Globulin Ratio 0.7 (1.1-1.8) L 07/29/19 13:30 Triglycerides 63 mg/dL (<150) 07/30/19 04:14 Cholesterol 99 mg/dL (<200) 07/30/19 04:14 LDL Cholesterol, Calc 52 (<130) 07/30/19 04:14 HDL Cholesterol 34 mg/dL (40-60) L 07/30/19 04:14 Cholesterol/HDL Ratio 2.91 07/30/19 04:14 TSH 2.430 uIU/mL (0.360-3.740) 07/30/19 04:14 Free T4 0.91 ng/dL (0.76-1.46) 07/30/19 04:14 ABO/Rh O POSITIVE 07/29/19 14:20 Solid Phase Ab Screen Negative 07/29/19 14:20 Crossmatch See Detail 07/29/19 14:20 Medications List Reviewed: Yes Assessment & Plan Physician Review: Patient Assessed, Agree with Above Assessment and Plan Physician Review Additional Text: Impression: Shortness of breath secondary to pulmonary edema related to end-stage renal disease on peritoneal dialysis complicated with underlying acute on chronic diastolic CHF Anemia of chronic disease Hypertension Poor compliance with peritoneal dialysis 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 Fall precautions in place. Plan: ESRD with pulmonary edema - start HD today per renal team -s/p removed PD catheter -c/w HD per renal team Anemia of chronic disease: s/p PRBC 1 unit , start EPogen per renal team -hold off further PRBC , c/w to trend h/h , now at 6.7 Hypertension: c/w hydralazine, Doxazosin 8 mg twice daily, nifedipine 60 mg 1 pill twice daily. 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 Fall precautions in place. Dispo - when cleared by nephrology services or when outpatient dialysis arranged
[2019-07-31] MEDS: FUROSEMIDE 40 MG/4 ML VIAL IV SCH (16:24)
--- NOTE | 2019-07-31 20:36 | P.PN ---
Date of Service: 07/31/19 Vital Signs Temp Pulse Resp BP Pulse Ox 97.4 F 71 16 164/89 H 98 07/31/19 16:00 07/31/19 17:53 07/31/19 16:00 07/31/19 17:53 07/31/19 16:00 Medications Acetaminophen (Tylenol -Extra Strength) 500 mg PO Q4HP PRN PRN Reason: TEMP > 101' F Stop: 08/28/19 15:41 Hydrocodone Bitart/Acetaminophen ([place] 7.5/325 Mg) 1 tab PO TID PRN PRN Reason: Pain scale 5-7 (Moderate) Stop: 08/28/19 21:01 Last Admin: 07/31/19 13:47 Dose: 1 tab Amlodipine Besylate (Norvasc) 10 mg PO DAILY [facility] Stop: 08/29/19 01:53 Last Admin: 07/31/19 10:49 Dose: 10 mg Calcitriol (Rocaltrol) 0.5 mcg PO DAILY [facility] Stop: 08/30/19 09:01 Last Admin: 07/31/19 10:50 Dose: 0.5 mcg Cholecalciferol (Vitamin D 5,000 Iu Cap) 5,000 unit PO DAILY [facility] Stop: 08/30/19 09:01 Last Admin: 07/31/19 10:50 Dose: 5,000 unit Doxazosin Mesylate (Cardura) 8 mg PO BID [facility] Stop: 08/28/19 21:01 Last Admin: 07/31/19 10:50 Dose: 8 mg Furosemide (Lasix) 80 mg IV BIDL [facility] Stop: 08/30/19 17:01 Last Admin: 07/31/19 16:24 Dose: 80 mg Heparin Sodium (Porcine) (Heparin 5,000 Units/Ml) 5,000 unit SQ Q12HR [facility] Stop: 08/28/19 21:01 Last Admin: 07/31/19 10:51 Dose: 5,000 unit Heparin Sodium (Porcine) (Heparin 1,000 Units/Ml) 6,000 unit IV EVERY HD PRN PRN Reason: FLUSH AFTER EACH USE Stop: 08/30/19 06:36 Hydralazine HCl (Apresoline) 50 mg PO BID [facility] Stop: 08/28/19 21:01 Last Admin: 07/31/19 10:50 Dose: 50 mg Hydralazine HCl (Apresoline) 10 mg IV Q6HP PRN PRN Reason: Titrate to SBP (MUST DEFINE) Stop: 08/28/19 23:59 Last Admin: 07/30/19 16:05 Dose: 10 mg Hydralazine HCl (Apresoline) 10 mg IV Q6HP PRN PRN Reason: Titrate to SBP (MUST DEFINE) Stop: 08/29/19 01:53 Albumin Human (Albumin 25%) 50 mls @ 100 mls/hr IV EVERY HD [facility] Stop: 08/30/19 07:01 Sodium Chloride (Ns 1000 Ml Ivbag) 1,000 mls @ 0 mls/hr IV .Q0M PRN PRN Reason: Priming and BP support at HD Stop: 07/31/19 23:59 Isosorbide Mononitrate (Imdur) 60 mg PO DAILY [facility] Stop: 08/29/19 09:01 Last Admin: 07/31/19 10:51 Dose: 60 mg Mannitol (Mannitol 12.5 Gm/50 Ml Vial) 12.5 gm IV EVERY HD PRN PRN Reason: Titrate to SBP (MUST DEFINE) Stop: 08/30/19 06:36 Nifedipine (Procardia Xl) 60 mg PO BID [facility] Stop: 08/28/19 21:01 Last Admin: 07/31/19 10:53 Dose: 60 mg Ondansetron HCl (Zofran) 4 mg IV Q6HP PRN PRN Reason: NAUSEA / VOMITING Stop: 08/28/19 15:41 Sevelamer Carbonate (Renvela) 1,600 mg PO TIDWM [facility] Stop: 08/30/19 08:01 Last Admin: 07/31/19 16:23 Dose: 1,600 mg Sodium Chloride (Normal Saline Flush) 10 ml IV BID [facility] Stop: 08/28/19 21:01 Last Admin: 07/31/19 10:51 Dose: 10 ml Tramadol HCl (Ultram) 50 mg PO TID PRN PRN Reason: Pain scale 2-4 (Mild) Stop: 08/28/19 17:28 Lab Results (last 24 hrs) 07/29/19 14:20: ABO/Rh O POSITIVE, Solid Phase Ab Screen Negative, Crossmatch See Detail Assessment/ Plan: Nephrology. Feeling better today except for neck pain. CPS stable without CP or SOB. No acute events overnight. Vitals, medications, blood work and imaging reviewed in the chart. General: In no apparent distress, Oriented x3, Cooperative HEENT: Atraumatic Neck: Supple Respiratory: Clear to auscultation bilaterally, Normal air movement Cardiovascular: Regular rate/rhythm, Edema Gastrointestinal: Soft and benign, Non-distended Musculoskeletal: No clubbing, No contractures Integumentary: No rashes, No cyanosis Neurological: Normal speech Blood work reviewed in the chart. Imagings Data: EXAM DESCRIPTION: RAD - Chest Pa And Lat (2 Views) - 07/30/2019 6:09 am CLINICAL HISTORY: Follow up pulmonary edema Chest pain. COMPARISON: Chest Pa And Lat (2 Views) dated 07/29/2019; Chest Pa And Lat (2 Views) dated 02/20/2019; Chest Pa And Lat (2 Views) dated 12/04/2018; Chest Single View dated 08/14/2016 FINDINGS: No significant change in lung aeration seen since 07/29/2019. Mild chronic bilateral interstitial lung opacities persist. Small right pleural effusion persists. The heart is mildly to moderately enlarged. IMPRESSION: Stable chest since preceding day's examination. LEFT VENTRICULAR WALL MOTION: NORMAL DOPPLER/COLOR FLOW: MILD MITRAL AND TRICUSPID REGURGITATION. MODERATE TO SEVERE PULMONARY HYPERTENSION. ESTIMATED RIGHT VENTRICULAR SYSTOLIC PRESSURE 60 mmHg. COMMENTS: NORMAL LEFT VENTRICULAR EJECTION FRACTION. MITRAL ANNULAR CALCIFICATION. LEFT VENTRICULAR HYPERTROPHY. MODERATE TO SEVERE PULMONARY HYPERTENSION. MILD MITRAL AND TRICUSPID REGURGITATION. Conclusions/Impression: A/ CKD V/ ESRD Acidosis Hypocalcemia DM II with CKD HTN with CKD/ CHF. Diastolic CHF, chronic. Pulmonary HTN. Anemia in CKD. MICHELLE/ Secondary HyperPTH. Moderate Malnutrition. P/ Continue current POC and Medications. Acute HD today. Next HD tomorrow. Vitamin D and binders started. Give Procrit. PRBC as needed. No NSAIDs. AM labs. Daily weight. Arrange placement at the [facility].
--- NOTE | 2019-07-31 23:20 | OP ---
Date of Procedure: 07/31/2019 Surgeon: John Maynard MD Preoperative Diagnosis: End-stage renal disease. Postoperative Diagnosis: End-stage renal disease. Procedures: 1.Placement of a HemoSplit dialysis catheter. 2.Interpretation of fluoroscopy. 3.Right neck ultrasound for catheter placement. Anesthesia: General plus local. Complications: None. Indications: This is a case of a 49-year-old patient who needed a hemodialysis. Fully explained the benefits, alternatives, and risks of catheter placement which include, but not limited to infection, bleeding, damage to adjacent structures, anesthesia complications, pneumothorax, hemothorax, vein th rombosis, pulmonary emboli, endocarditis, MO, even . He also understands this may not relieve a ny symptoms. He might need more than one surgical intervention. He understood and signed a consent. He understands that when is not in use anymore to please remove this catheter and get permanent acc ess as soon as possible if he decides and his primary doctor decide that he is going to go for hemodi alysis for a long time. He signed a consent. Description Of Procedure: Patient was brought to the operating room, placed in supine position, anes thesia was achieved without complication. Right neck and chest were prepped and draped in a sterile fashion. Ultrasound of the right neck was done and shows a compressible right jugular vein. At this moment with the patient in Trendelenburg position, placed a needle in the right internal jugular vei n at the first attempt with the help of ultrasound machine. Guidewire was passed through into the ames perior vena cava. At that moment, we proceeded to make an incision in the right upper chest, tunneli ng catheter through that incision to meet the incision in the neck. After that, using fluoroscopy we put sequential dilators through the guidewire and then introducer sheath. At that moment, the guide wire was removed. The catheter was placed in. Then an introducer sheath was peeled off. Excellent backflow and inflow. Fluoroscopy once again used for guidance. At that moment, I proceeded to close the skin with 3-0 chromic, secured the catheter with 3-0 nylon, excellent backflow and inflow. The line was flushed with heparinized solution. Patient tolerated the procedure well. Patient was sent to recovery in stable condition. Patient will get a chest x-ray stat. HM/MODL Voice ID: [id number] Report ID: [id number]
[2019-08-01 04:53] LABS: Absolute Lymphocytes (CBC) 0.4 K/uL (0.7-4.9); Basophils % 0.9 % (0-1.3); Lymphocytes % 8.9 % (15.3-44.8); MPV 8.5 fL (7.6-11.3)
[2019-08-01 04:55] LABS: Hematocrit 18.9 % (39.6-49.0)
[2019-08-01 05:08] LABS: Magnesium 2.1 mg/dL (1.8-2.4); Potassium 4.3 mmol/L (3.5-5.1)
[2019-08-01] MEDS: HYDRALAZINE HCL 20 MG/ML VIAL IV PRN (06:25)
[2019-08-01] MEDS ORDERED: DOXAZOSIN 2 MG TAB ONE (08:09)
[2019-08-01] MEDS: CALCITROL 0.25 MCG CAP PO SCH (08:40)
[2019-08-01] MEDS: SEVELAMER CARBONATE 800 MG TABLET PO SCH ×3 (08:41→18:17)
[2019-08-01] MEDS: HYDRALAZINE HCL 25 MG TABLET PO SCH ×2 (08:41→21:18)
[2019-08-01] MEDS: VITAMIN D 5,000 UNIT CAP PO SCH (08:41)
[2019-08-01] MEDS: NIFEDIPINE XL 60 MG TABLET PO SCH ×2 (08:41→21:18)
[2019-08-01] MEDS: HEPARIN 5000 UNIT/ML 1 ML VIAL SQ SCH ×2 (08:42→21:20)
[2019-08-01] MEDS: AMLODIPINE 10 MG TAB PO SCH (08:42)
[2019-08-01] MEDS: FUROSEMIDE 40 MG/4 ML VIAL IV SCH ×2 (08:42→18:17)
[2019-08-01] MEDS: ISOSORBIDE MONO SR 60 MG TAB PO SCH (08:45)
[2019-08-01] MEDS: DOXAZOSIN 4 MG TAB PO SCH ×2 (08:58→21:19)
[2019-08-01] MEDS ORDERED: NA CHLORIDE 0.9% 250 ML IV SCH (09:00)
[2019-08-01] MEDS: HYDROCODONE/APAP 7.5/325 MG TAB PO PRN ×2 (11:28→18:16)
--- NOTE | 2019-08-01 11:50 | P.PN ---
Subjective Date of Service: 08/01/19 Primary Care Provider: Dr. Culp Chief Complaint: Shortness of breath, edema to the lower extremities Subjective: Tolerating diet (s/p dialysis yesterday , SOB better now), New changes, Doing well Review of Systems 10-point ROS is otherwise unremarkable Physical Examination - Vital Signs Temperature: 98 F Blood Pressure: 164/73 Pulse: 73 Respirations: 16 Pulse Ox (%): 96 - Physical Exam General: Alert, In no apparent distress, Oriented x3, Obese HEENT: Atraumatic, Normocephalic Neck: Other (right permacath +) Respiratory: Normal air movement, Crackles/rales (improving ) Cardiovascular: Regular rate/rhythm, Normal S1 S2, Edema (much improvd to 1+ b/ l ) Gastrointestinal: Normal bowel sounds, Soft and benign, Non-distended (PD cath insitu ) Musculoskeletal: No clubbing, No swelling Neurological: Normal speech, Normal strength at 5/5 x4 extr - Studies Medications List Reviewed: Yes Assessment & Plan Physician Review: Patient Assessed, Agree with Above Assessment and Plan Physician Review Additional Text: Impression: Shortness of breath secondary to pulmonary edema related to end-stage renal disease on peritoneal dialysis complicated with underlying acute on chronic diastolic CHF Anemia of chronic disease Hypertension Poor compliance with peritoneal dialysis 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 Fall precautions in place. Plan: ESRD with pulmonary edema - c/w HD today - Volume status improving -will d/w with case mgt to ascertain outpatient dialysis unit placement - will dc patient when dialysis placement obtained Anemia of chronic disease: still low at 6.2 , will give another unit PRBC today - s/p prior PRBC 1 unit , start EPogen per renal team Hypertension: uncontolled , follow ith ore ultrafiltration - c/w hydralazine, Doxazosin 8 mg twice daily, nifedipine 60 mg 1 pill twice daily. 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 Fall precautions in place. Dispo - when outpatient dialysis arranged Critical Care: No Time Spent Managing Pts Care (In Minutes): 31
[2019-08-01 18:56] LABS: Hematocrit 20.5 % (39.6-49.0)
--- NOTE | 2019-08-01 19:25 | P.PN ---
Date of Service: 08/01/19 Vital Signs Temp Pulse Resp BP Pulse Ox 98 F 73 16 145/67 H 96 08/01/19 15:58 08/01/19 18:17 08/01/19 18:16 08/01/19 18:17 08/01/19 18:16 Medications Acetaminophen (Tylenol -Extra Strength) 500 mg PO Q4HP PRN PRN Reason: TEMP > 101' F Stop: 08/28/19 15:41 Hydrocodone Bitart/Acetaminophen ([place] 7.5/325 Mg) 1 tab PO TID PRN PRN Reason: Pain scale 5-7 (Moderate) Stop: 08/28/19 21:01 Last Admin: 08/01/19 18:16 Dose: 1 tab Amlodipine Besylate (Norvasc) 10 mg PO DAILY [facility] Stop: 08/29/19 01:53 Last Admin: 08/01/19 08:42 Dose: 10 mg Calcitriol (Rocaltrol) 0.5 mcg PO DAILY [facility] Stop: 08/30/19 09:01 Last Admin: 08/01/19 08:40 Dose: 0.5 mcg Cholecalciferol (Vitamin D 5,000 Iu Cap) 5,000 unit PO DAILY [facility] Stop: 08/30/19 09:01 Last Admin: 08/01/19 08:41 Dose: 5,000 unit Doxazosin Mesylate (Cardura) 8 mg PO BID [facility] Stop: 08/28/19 21:01 Last Admin: 08/01/19 08:58 Dose: Not Given Furosemide (Lasix) 80 mg IV BIDL [facility] Stop: 08/30/19 17:01 Last Admin: 08/01/19 18:17 Dose: 80 mg Heparin Sodium (Porcine) (Heparin 5,000 Units/Ml) 5,000 unit SQ Q12HR [facility] Stop: 08/28/19 21:01 Last Admin: 08/01/19 08:42 Dose: 5,000 unit Heparin Sodium (Porcine) (Heparin 1,000 Units/Ml) 6,000 unit IV EVERY HD PRN PRN Reason: FLUSH AFTER EACH USE Stop: 08/30/19 06:36 Hydralazine HCl (Apresoline) 50 mg PO BID [facility] Stop: 08/28/19 21:01 Last Admin: 08/01/19 08:41 Dose: 50 mg Hydralazine HCl (Apresoline) 10 mg IV Q6HP PRN PRN Reason: Titrate to SBP (MUST DEFINE) Stop: 08/28/19 23:59 Last Admin: 08/01/19 06:25 Dose: 10 mg Hydralazine HCl (Apresoline) 10 mg IV Q6HP PRN PRN Reason: Titrate to SBP (MUST DEFINE) Stop: 08/29/19 01:53 Albumin Human (Albumin 25%) 50 mls @ 100 mls/hr IV EVERY HD [facility] Stop: 08/30/19 07:01 Sodium Chloride (Sodium Chloride) 250 mls @ 0 mls/hr IV .Q0M [facility] Stop: 08/31/19 09:01 Isosorbide Mononitrate (Imdur) 60 mg PO DAILY [facility] Stop: 08/29/19 09:01 Last Admin: 08/01/19 08:45 Dose: 60 mg Mannitol (Mannitol 12.5 Gm/50 Ml Vial) 12.5 gm IV EVERY HD PRN PRN Reason: Titrate to SBP (MUST DEFINE) Stop: 08/30/19 06:36 Nifedipine (Procardia Xl) 60 mg PO BID [facility] Stop: 08/28/19 21:01 Last Admin: 08/01/19 08:41 Dose: 60 mg Ondansetron HCl (Zofran) 4 mg IV Q6HP PRN PRN Reason: NAUSEA / VOMITING Stop: 08/28/19 15:41 Sevelamer Carbonate (Renvela) 1,600 mg PO TIDWM [facility] Stop: 08/30/19 08:01 Last Admin: 08/01/19 18:17 Dose: 1,600 mg Sodium Chloride (Normal Saline Flush) 10 ml IV BID [facility] Stop: 08/28/19 21:01 Last Admin: 08/01/19 08:42 Dose: 10 ml Tramadol HCl (Ultram) 50 mg PO TID PRN PRN Reason: Pain scale 2-4 (Mild) Stop: 08/28/19 17:28 Lab Results (last 24 hrs) 07/29/19 14:20: ABO/Rh O POSITIVE, Solid Phase Ab Screen Negative, Crossmatch See Detail Assessment/ Plan: Nephrology. Feeling better. Improving [place]. CPS stable without CP or SOB. No acute events overnight. Vitals, medications, blood work and imaging reviewed in the chart. General: In no apparent distress, Oriented x3, Cooperative HEENT: Atraumatic Neck: Supple Respiratory: Clear to auscultation bilaterally, Normal air movement Cardiovascular: Regular rate/rhythm, Edema Gastrointestinal: Soft and benign, Non-distended Musculoskeletal: No clubbing, No contractures Integumentary: No rashes, No cyanosis Neurological: Normal speech Blood work reviewed in the chart. Imagings Data: EXAM DESCRIPTION: RAD - Chest Pa And Lat (2 Views) - 07/30/2019 6:09 am CLINICAL HISTORY: Follow up pulmonary edema Chest pain. COMPARISON: Chest Pa And Lat (2 Views) dated 07/29/2019; Chest Pa And Lat (2 Views) dated 02/20/2019; Chest Pa And Lat (2 Views) dated 12/04/2018; Chest Single View dated 08/14/2016 FINDINGS: No significant change in lung aeration seen since 07/29/2019. Mild chronic bilateral interstitial lung opacities persist. Small right pleural effusion persists. The heart is mildly to moderately enlarged. IMPRESSION: Stable chest since preceding day's examination. LEFT VENTRICULAR WALL MOTION: NORMAL DOPPLER/COLOR FLOW: MILD MITRAL AND TRICUSPID REGURGITATION. MODERATE TO SEVERE PULMONARY HYPERTENSION. ESTIMATED RIGHT VENTRICULAR SYSTOLIC PRESSURE 60 mmHg. COMMENTS: NORMAL LEFT VENTRICULAR EJECTION FRACTION. MITRAL ANNULAR CALCIFICATION. LEFT VENTRICULAR HYPERTROPHY. MODERATE TO SEVERE PULMONARY HYPERTENSION. MILD MITRAL AND TRICUSPID REGURGITATION. Conclusions/Impression: A/ CKD V/ ESRD Acidosis Hypocalcemia DM II with CKD HTN with CKD/ CHF. Diastolic CHF, chronic. Pulmonary HTN. Anemia in CKD. MICHELLE/ Secondary HyperPTH. Moderate Malnutrition. P/ Continue current POC and Medications. Acute HD today. Next HD tomorrow. Continue Procrit. Case reviewed with Dr. Maynard; Plan to remove PD catheter tomorrow. PRBC as needed. No NSAIDs. AM labs. Daily weight. Social work to arrange placement at the [facility], [place].
[2019-08-02 04:48] LABS: Absolute Lymphocytes (CBC) 0.3 K/uL (0.7-4.9); Hematocrit 22.2 % (39.6-49.0); Lymphocytes % 6.4 % (15.3-44.8); MPV 8.7 fL (7.6-11.3)
[2019-08-02 05:36] LABS: Albumin 2.7 g/dL (3.4-5.0); Bilirubin Total 0.3 mg/dL (0.2-1.0); Potassium 4.1 mmol/L (3.5-5.1); Protein, Total 6.5 g/dL (6.4-8.2)
[2019-08-02] MEDS: SEVELAMER CARBONATE 800 MG TABLET PO SCH ×3 (08:00→17:03)
[2019-08-02] MEDS: AMLODIPINE 10 MG TAB PO SCH (09:00)
[2019-08-02] MEDS: NIFEDIPINE XL 60 MG TABLET PO SCH ×2 (09:00→20:41)
[2019-08-02] MEDS: DOXAZOSIN 4 MG TAB PO SCH ×3 (09:00→20:41)
[2019-08-02] MEDS: ISOSORBIDE MONO SR 60 MG TAB PO SCH (09:00)
[2019-08-02] MEDS: VITAMIN D 5,000 UNIT CAP PO SCH ×2 (09:00→17:04)
[2019-08-02] MEDS: HYDRALAZINE HCL 25 MG TABLET PO SCH ×2 (09:00→20:44)
[2019-08-02] MEDS: HEPARIN 5000 UNIT/ML 1 ML VIAL SQ SCH ×2 (09:00→20:40)
[2019-08-02] MEDS: CALCITROL 0.25 MCG CAP PO SCH ×2 (09:00→17:04)
[2019-08-02] MEDS: FUROSEMIDE 40 MG/4 ML VIAL IV SCH (10:10)
--- NOTE | 2019-08-02 12:02 | P.PN ---
Subjective Date of Service: 08/02/19 Primary Care Provider: Dr. Culp Chief Complaint: Shortness of breath, edema to the lower extremities Subjective: No new changes, Tolerating diet Review of Systems 10-point ROS is otherwise unremarkable Physical Examination - Vital Signs Temperature: 97.8 F Blood Pressure: 160/75 Pulse: 72 Respirations: 18 Pulse Ox (%): 97 - Physical Exam General: Alert, In no apparent distress, Oriented x3, Obese HEENT: Atraumatic, PERRLA, Mucous membr. moist/pink Neck: 2+ carotid pulse no bruit, JVD not distended Respiratory: Clear to auscultation bilaterally, Normal air movement Cardiovascular: Normal pulses, Regular rate/rhythm, Normal S1 S2 Gastrointestinal: Normal bowel sounds, Soft and benign, Non-distended (PD cath insitu ) Musculoskeletal: Swelling Integumentary: Rash(es) (forehead papaular ) Neurological: Normal speech, Normal strength at 5/5 x4 extr, Sensation intact, Cranial nerves 3-12 intact - Studies Laboratory Last Values WBC 5.0 K/uL (4.3-10.9) D 08/02/19 04:21 RBC 2.60 M/uL (4.33-5.43) L 08/02/19 04:21 Hgb 7.2 g/dL (13.6-17.9) L* 08/02/19 04:21 Hct 22.2 % (39.6-49.0) L 08/02/19 04:21 MCV 85.3 fL (80-100) 08/02/19 04:21 MCH 27.6 pg (27.0-35.0) 08/02/19 04:21 MCHC 32.3 g/dL (32.0-36.0) 08/02/19 04:21 RDW 17.0 % (12.1-15.2) H 08/02/19 04:21 Plt Count 188 K/uL (152-406) 08/02/19 04:21 MPV 8.7 fL (7.6-11.3) 08/02/19 04:21 Neutrophils % 76.7 % (41.7-73.7) H 08/02/19 04:21 Lymphocytes % 6.4 % (15.3-44.8) L 08/02/19 04:21 Monocytes % 12.7 % (3.3-12.3) H 08/02/19 04:21 Eosinophils % 3.2 % (0-4.4) 08/02/19 04:21 Basophils % 1.0 % (0-1.3) 08/02/19 04:21 Absolute Neutrophils 3.8 K/uL (1.8-8.0) 08/02/19 04:21 Absolute Lymphocytes 0.3 K/uL (0.7-4.9) L 08/02/19 04:21 Absolute Monocytes 0.6 K/uL (0.1-1.3) 08/02/19 04:21 Absolute Eosinophils 0.2 K/uL (0-0.5) 08/02/19 04:21 Absolute Basophils 0.0 K/uL (0-0.5) 08/02/19 04:21 PT 14.1 SECONDS (9.5-12.5) H 07/29/19 13:30 INR 1.20 07/29/19 13:30 Sodium 139 mmol/L (136-145) 08/02/19 04:21 Potassium 4.1 mmol/L (3.5-5.1) 08/02/19 04:21 Chloride 107 mmol/L (98-107) 08/02/19 04:21 Carbon Dioxide 25 mmol/L (21-32) 08/02/19 04:21 BUN 56 mg/dL (7-18) H D 08/02/19 04:21 Creatinine 10.20 mg/dL (0.55-1.3) H* D 08/02/19 04:21 Estimated GFR 7 mL/min (=/>90) L 08/02/19 04:21 Glucose 92 mg/dL (74-106) 08/02/19 04:21 POC Glucose 98 mg/dl (65-120) 08/01/19 20:03 Calcium 8.0 mg/dL (8.5-10.1) L 08/02/19 04:21 Magnesium 2.0 mg/dL (1.8-2.4) 08/02/19 04:21 Total Bilirubin 0.3 mg/dL (0.2-1.0) 08/02/19 04:21 Direct Bilirubin < 0.1 mg/dL (0-0.2) 07/29/19 13:30 AST 8 U/L (15-37) L 08/02/19 04:21 ALT 7 U/L (12-78) L 08/02/19 04:21 Alkaline Phosphatase 44 U/L (45-117) L 08/02/19 04:21 Rapid Troponin I 0.03 ng/mL (0.0-0.045) 07/29/19 13:30 NT-Pro-B Natriuret Pep 16455 pg/mL (<125) H 07/29/19 13:30 Serum Total Protein 6.5 g/dL (6.4-8.2) 08/02/19 04:21 Albumin 2.7 g/dL (3.4-5.0) L 08/02/19 04:21 Globulin 3.8 g/dL (2.3-3.5) H 08/02/19 04:21 Albumin/Globulin Ratio 0.7 (1.1-1.8) L 08/02/19 04:21 Triglycerides 63 mg/dL (<150) 07/30/19 04:14 Cholesterol 99 mg/dL (<200) 07/30/19 04:14 LDL Cholesterol, Calc 52 (<130) 07/30/19 04:14 HDL Cholesterol 34 mg/dL (40-60) L 07/30/19 04:14 Cholesterol/HDL Ratio 2.91 07/30/19 04:14 TSH 2.430 uIU/mL (0.360-3.740) 07/30/19 04:14 Free T4 0.91 ng/dL (0.76-1.46) 07/30/19 04:14 ABO/Rh O POSITIVE 07/29/19 14:20 Solid Phase Ab Screen Negative 07/29/19 14:20 Crossmatch See Detail 08/01/19 Unknown Medications List Reviewed: Yes Assessment & Plan Physician Review: Patient Assessed, Agree with Above Assessment and Plan Physician Review Additional Text: Impression: Shortness of breath secondary to pulmonary edema related to end-stage renal disease on peritoneal dialysis complicated with underlying acute on chronic diastolic CHF Anemia of chronic disease Hypertension Poor compliance with peritoneal dialysis 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 Fall precautions in place. Plan: ESRD with pulmonary edema - c/w HD per renal -awaiting placement at outpt unit -c/w UF -volume status improving -planned for PD catheter removal today Anemia of chronic disease: s/p 2 nd unit PRBC in HD yesterday - follow repeat in am - start EPogen per renal team Hypertension: improving -c/w Doxazosin 8 mg twice daily, nifedipine 60 mg 1 pill twice daily. -increase hydralzine from m50 bid to 100 bid Poor compliance with peritoneal dialysis: Continue as above Blindness 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 Fall precautions in place. Dispo - when outpatient dialysis arranged
[2019-08-02] MEDS ORDERED: CEFAZOLIN/SWI 1gm 1 GM/10 ML SYR ONE (12:54)
[2019-08-02] MEDS ORDERED: NA CHLORIDE 0.9% 500 ML ONE (13:05)
[2019-08-02] MEDS ORDERED: MIDAZOLAM HCL 2 MG/2 ML INJ ONE (13:58)
[2019-08-02] MEDS ORDERED: LIDOCAINE 2% MPF 5 ML VIAL ONE (13:58)
[2019-08-02] MEDS ORDERED: FENTANYL CITR 100 MCG/2 ML ONE (13:58)
[2019-08-02] MEDS ORDERED: propofoL 200 MG/20 ML VIAL IV ONE (13:58)
--- NOTE | 2019-08-02 14:36 | P.BOP ---
Preoperative diagnosis: ESRD, obesity, anemia Postoperative diagnosis: same Primary procedure: Removal of abdominal wall peritoneal dialysis catheter Estimated blood loss: < 20cc Specimen: intact peritoneal cath Findings: as above Anesthesia: General Complications: None Transferred to: Recovery Room Condition: Good
[2019-08-02] MEDS: HYDROCODONE/APAP 7.5/325 MG TAB PO PRN (17:04)
[2019-08-02] MEDS: FUROSEMIDE 40 MG TABLET PO SCH (17:05)
--- NOTE | 2019-08-02 20:21 | P.PN ---
Date of Service: 08/02/19 Vital Signs Temp Pulse Resp BP Pulse Ox 98.3 F 74 16 185/75 H 94 08/02/19 16:00 08/02/19 17:05 08/02/19 17:04 08/02/19 17:05 08/02/19 17:04 Medications Acetaminophen (Tylenol -Extra Strength) 500 mg PO Q4HP PRN PRN Reason: TEMP > 101' F Stop: 08/28/19 15:41 Hydrocodone Bitart/Acetaminophen ([place] 7.5/325 Mg) 1 tab PO TID PRN PRN Reason: Pain scale 5-7 (Moderate) Stop: 08/28/19 21:01 Last Admin: 08/02/19 17:04 Dose: 1 tab Amlodipine Besylate (Norvasc) 10 mg PO DAILY [facility] Stop: 08/29/19 01:53 Last Admin: 08/02/19 09:00 Dose: Not Given Calcitriol (Rocaltrol) 0.5 mcg PO DAILY [facility] Stop: 08/30/19 09:01 Last Admin: 08/02/19 17:04 Dose: 0.5 mcg Cholecalciferol (Vitamin D 5,000 Iu Cap) 5,000 unit PO DAILY [facility] Stop: 08/30/19 09:01 Last Admin: 08/02/19 17:04 Dose: 5,000 unit Doxazosin Mesylate (Cardura) 8 mg PO BID [facility] Stop: 08/28/19 21:01 Last Admin: 08/02/19 17:03 Dose: 8 mg Furosemide (Lasix) 80 mg PO BIDL [facility] Stop: 09/01/19 17:01 Last Admin: 08/02/19 17:05 Dose: 80 mg Heparin Sodium (Porcine) (Heparin 5,000 Units/Ml) 5,000 unit SQ Q12HR [facility] Stop: 08/28/19 21:01 Last Admin: 08/02/19 09:00 Dose: Not Given Heparin Sodium (Porcine) (Heparin 1,000 Units/Ml) 6,000 unit IV EVERY HD PRN PRN Reason: FLUSH AFTER EACH USE Stop: 08/30/19 06:36 Home Med (Sildenafil Citrate [Sildenafil Citrate]) 1 tab PO DAILY [facility] Stop: 09/02/19 09:01 Hydralazine HCl (Apresoline) 10 mg IV Q6HP PRN PRN Reason: Titrate to SBP (MUST DEFINE) Stop: 08/29/19 01:53 Hydralazine HCl (Apresoline) 100 mg PO BID [facility] Stop: 09/01/19 21:01 Albumin Human (Albumin 25%) 50 mls @ 100 mls/hr IV EVERY HD [facility] Stop: 08/30/19 07:01 Sodium Chloride (Sodium Chloride) 250 mls @ 0 mls/hr IV .Q0M [facility] Stop: 08/31/19 09:01 Isosorbide Mononitrate (Imdur) 60 mg PO DAILY [facility] Stop: 08/29/19 09:01 Last Admin: 08/02/19 09:00 Dose: Not Given Mannitol (Mannitol 12.5 Gm/50 Ml Vial) 12.5 gm IV EVERY HD PRN PRN Reason: Titrate to SBP (MUST DEFINE) Stop: 08/30/19 06:36 Nifedipine (Procardia Xl) 60 mg PO BID [facility] Stop: 08/28/19 21:01 Last Admin: 08/02/19 09:00 Dose: Not Given Ondansetron HCl (Zofran) 4 mg IV Q6HP PRN PRN Reason: NAUSEA / VOMITING Stop: 08/28/19 15:41 Ramipril (Altace) 5 mg PO BEDTIME [facility] Stop: 09/01/19 21:01 Sevelamer Carbonate (Renvela) 1,600 mg PO TIDWM [facility] Stop: 08/30/19 08:01 Last Admin: 08/02/19 17:03 Dose: 1,600 mg Sodium Chloride (Normal Saline Flush) 10 ml IV BID [facility] Stop: 08/28/19 21:01 Last Admin: 08/02/19 17:06 Dose: 10 ml Tramadol HCl (Ultram) 50 mg PO TID PRN PRN Reason: Pain scale 2-4 (Mild) Stop: 08/28/19 17:28 Last Admin: 08/01/19 21:34 Dose: 50 mg Lab Results (last 24 hrs) 07/29/19 14:20: ABO/Rh O POSITIVE, Solid Phase Ab Screen Negative, Crossmatch See Detail Assessment/ Plan: Nephrology. Doing well. CPS stable without CP or SOB. No acute events overnight. Vitals, medications, blood work and imaging reviewed in the chart. General: In no apparent distress, Oriented x3, Cooperative HEENT: Atraumatic Neck: Supple Respiratory: Clear to auscultation bilaterally, Normal air movement Cardiovascular: Regular rate/rhythm, Edema Gastrointestinal: Soft and benign, Non-distended Musculoskeletal: No clubbing, No contractures Integumentary: No rashes, No cyanosis Neurological: Normal speech Blood work reviewed in the chart. Imagings Data: EXAM DESCRIPTION: RAD - Chest Pa And Lat (2 Views) - 07/30/2019 6:09 am CLINICAL HISTORY: Follow up pulmonary edema Chest pain. COMPARISON: Chest Pa And Lat (2 Views) dated 07/29/2019; Chest Pa And Lat (2 Views) dated 02/20/2019; Chest Pa And Lat (2 Views) dated 12/04/2018; Chest Single View dated 08/14/2016 FINDINGS: No significant change in lung aeration seen since 07/29/2019. Mild chronic bilateral interstitial lung opacities persist. Small right pleural effusion persists. The heart is mildly to moderately enlarged. IMPRESSION: Stable chest since preceding day's examination. LEFT VENTRICULAR WALL MOTION: NORMAL DOPPLER/COLOR FLOW: MILD MITRAL AND TRICUSPID REGURGITATION. MODERATE TO SEVERE PULMONARY HYPERTENSION. ESTIMATED RIGHT VENTRICULAR SYSTOLIC PRESSURE 60 mmHg. COMMENTS: NORMAL LEFT VENTRICULAR EJECTION FRACTION. MITRAL ANNULAR CALCIFICATION. LEFT VENTRICULAR HYPERTROPHY. MODERATE TO SEVERE PULMONARY HYPERTENSION. MILD MITRAL AND TRICUSPID REGURGITATION. Conclusions/Impression: A/ CKD V/ ESRD Acidosis Hypocalcemia DM II with CKD HTN with CKD/ CHF. Diastolic CHF, chronic. Pulmonary HTN. Anemia in CKD. MICHELLE/ Secondary HyperPTH. Moderate Malnutrition. P/ Continue current POC and Medications. Next HD Monday. Start Ramipril qhs. Continue Procrit. Case reviewed with Dr. Maynard; Plan to remove PD catheter today. PRBC as needed. No NSAIDs. AM labs. Daily weight. Social work to arrange placement at the [facility] [place]. Hepatitis pending.
[2019-08-02] MEDS ORDERED: ramipriL 5 MG CAP PO SCH (21:00)
--- NOTE | 2019-08-03 01:32 | OP ---
Date of Procedure: 08/02/2019 Surgeon: John Maynard MD Preoperative Diagnoses: End-stage renal disease, obesity, anemia, on hemodialysis. Postoperative Diagnoses: End-stage renal disease, obesity, anemia, on hemodialysis. Procedures: Removal of abdominal wall peritoneal dialysis catheter. Specimen: Intact peritoneal catheter. Anesthesia: General plus local. Indications: This is the case of a 49-year-old patient, receiving previously peritoneal dialysis mart atment through the catheter and then switching out to the hemodialysis. He has been tolerating that well, so they asked me to remove the peritoneal dialysis. Patient had an infection around the abdomi nal wall about 6 months ago and required surgical intervention, debridement and then that area has he aled by secondary intention. The catheter will be removed with benefits, alternatives, and risks inc luding, but not limited to infection, bleeding, damage to adjacent structures, anesthesia complicatio n, recurrence, AK, and even . He also understands this may not relieve his symptoms, he might n eed more than one surgical intervention. He may require wound care. He signed a consent. Description Of Procedure: Patient was brought to the operating room, placed in supine position. Ane sthesia was done without complication. Abdominal area was prepped and draped in a sterile fashion. Incision was made where the catheter was inserted. Incision was carried down until we find the first cuff, released that from the subcutaneous tissue, and then went all the way through until we find th e second cuff that goes to the fascia. The cuff was released, catheter was pulled intact. The fasci a was closed with #1 Vicryl, irrigation was done, and then the subcutaneous tissues were closed with 3-0 chromic and then the area of the wound was packed with wet-to-dry dressing. Patient tolerated the procedure well. Patient was sent to recovery in stable condition. HM/MODL Voice ID: [id number] Report ID: [id number]
[2019-08-03 07:52] LABS: Absolute Lymphocytes (CBC) 0.4 K/uL (0.7-4.9); Basophils % 1.1 % (0-1.3); Hematocrit 22.2 % (39.6-49.0); Lymphocytes % 8.5 % (15.3-44.8); MPV 8.3 fL (7.6-11.3); RBC Red Blood Cell Count 2.59 M/uL (4.33-5.43)
[2019-08-03 08:09] LABS: ALT/SGPT < 6 U/L (12-78); AST/SGOT 7 U/L (15-37); Albumin 2.6 g/dL (3.4-5.0); Alkaline Phosphatase 43 U/L (45-117); BUN Blood Urea Nitrogen 42 mg/dL (7-18); Bicarbonate 25 mmol/L (21-32); Bilirubin Total 0.2 mg/dL (0.2-1.0); Glucose Level 84 mg/dL (74-106); Protein, Total 6.2 g/dL (6.4-8.2); Sodium Level 140 mmol/L (136-145)
[2019-08-03] MEDS: ISOSORBIDE MONO SR 60 MG TAB PO SCH (08:12)
[2019-08-03] MEDS: HYDRALAZINE HCL 25 MG TABLET PO SCH ×2 (08:12→20:00)
[2019-08-03] MEDS: CALCITROL 0.25 MCG CAP PO SCH (08:12)
[2019-08-03] MEDS: DOXAZOSIN 4 MG TAB PO SCH ×2 (08:13→20:00)
[2019-08-03] MEDS: AMLODIPINE 10 MG TAB PO SCH (08:13)
[2019-08-03] MEDS: SEVELAMER CARBONATE 800 MG TABLET PO SCH ×3 (08:14→17:09)
[2019-08-03] MEDS: FUROSEMIDE 40 MG TABLET PO SCH ×2 (08:14→17:09)
[2019-08-03] MEDS: HYDROCODONE/APAP 7.5/325 MG TAB PO PRN ×2 (08:14→17:16)
[2019-08-03] MEDS: SILDENAFIL CITRATE PO SCH (08:15)
[2019-08-03] MEDS: VITAMIN D 5,000 UNIT CAP PO SCH (08:15)
[2019-08-03] MEDS: HEPARIN 5000 UNIT/ML 1 ML VIAL SQ SCH ×2 (08:16→20:01)
--- NOTE | 2019-08-03 10:59 | P.PN ---
Date of Service: 08/03/19 Vital Signs Temp Pulse Resp BP Pulse Ox 98 F 68 18 179/63 H 93 08/03/19 08:00 08/03/19 08:14 08/03/19 08:14 08/03/19 08:14 08/03/19 08:14 Medications Acetaminophen (Tylenol -Extra Strength) 500 mg PO Q4HP PRN PRN Reason: TEMP > 101' F Stop: 08/28/19 15:41 Hydrocodone Bitart/Acetaminophen ([place] 7.5/325 Mg) 1 tab PO TID PRN PRN Reason: Pain scale 5-7 (Moderate) Stop: 08/28/19 21:01 Last Admin: 08/03/19 08:14 Dose: 1 tab Amlodipine Besylate (Norvasc) 10 mg PO DAILY [facility] Stop: 08/29/19 01:53 Last Admin: 08/03/19 08:13 Dose: 10 mg Calcitriol (Rocaltrol) 0.5 mcg PO DAILY [facility] Stop: 08/30/19 09:01 Last Admin: 08/03/19 08:12 Dose: 0.5 mcg Cholecalciferol (Vitamin D 5,000 Iu Cap) 5,000 unit PO DAILY [facility] Stop: 08/30/19 09:01 Last Admin: 08/03/19 08:15 Dose: 5,000 unit Doxazosin Mesylate (Cardura) 8 mg PO BID [facility] Stop: 08/28/19 21:01 Last Admin: 08/03/19 08:13 Dose: 8 mg Furosemide (Lasix) 80 mg PO BIDL [facility] Stop: 09/01/19 17:01 Last Admin: 08/03/19 08:14 Dose: 80 mg Heparin Sodium (Porcine) (Heparin 5,000 Units/Ml) 5,000 unit SQ Q12HR [facility] Stop: 08/28/19 21:01 Last Admin: 08/03/19 08:16 Dose: 5,000 unit Heparin Sodium (Porcine) (Heparin 1,000 Units/Ml) 6,000 unit IV EVERY HD PRN PRN Reason: FLUSH AFTER EACH USE Stop: 08/30/19 06:36 Home Med (Sildenafil Citrate [Sildenafil Citrate]) 1 tab PO DAILY [facility] Stop: 09/02/19 09:01 Last Admin: 08/03/19 08:15 Dose: Not Given Hydralazine HCl (Apresoline) 10 mg IV Q6HP PRN PRN Reason: Titrate to SBP (MUST DEFINE) Stop: 08/29/19 01:53 Hydralazine HCl (Apresoline) 100 mg PO BID [facility] Stop: 09/01/19 21:01 Last Admin: 08/03/19 08:12 Dose: 100 mg Albumin Human (Albumin 25%) 50 mls @ 100 mls/hr IV EVERY HD [facility] Stop: 08/30/19 07:01 Sodium Chloride (Sodium Chloride) 250 mls @ 0 mls/hr IV .Q0M [facility] Stop: 08/31/19 09:01 Isosorbide Mononitrate (Imdur) 60 mg PO DAILY [facility] Stop: 08/29/19 09:01 Last Admin: 08/03/19 08:12 Dose: 60 mg Mannitol (Mannitol 12.5 Gm/50 Ml Vial) 12.5 gm IV EVERY HD PRN PRN Reason: Titrate to SBP (MUST DEFINE) Stop: 08/30/19 06:36 Nifedipine (Procardia Xl) 60 mg PO BID [facility] Stop: 08/28/19 21:01 Last Admin: 08/02/19 20:41 Dose: 60 mg Ondansetron HCl (Zofran) 4 mg IV Q6HP PRN PRN Reason: NAUSEA / VOMITING Stop: 08/28/19 15:41 Pregabalin (Lyrica) 25 mg PO ONCE ONE Stop: 08/03/19 11:01 Ramipril (Altace) 10 mg PO BEDTIME [facility] Stop: 09/02/19 21:01 Sevelamer Carbonate (Renvela) 1,600 mg PO TIDWM [facility] Stop: 08/30/19 08:01 Last Admin: 08/03/19 08:14 Dose: 1,600 mg Sodium Chloride (Normal Saline Flush) 10 ml IV BID [facility] Stop: 08/28/19 21:01 Last Admin: 08/03/19 08:16 Dose: 10 ml Tramadol HCl (Ultram) 50 mg PO TID PRN PRN Reason: Pain scale 2-4 (Mild) Stop: 08/28/19 17:28 Last Admin: 08/01/19 21:34 Dose: 50 mg Lab Results (last 24 hrs) 07/29/19 14:20: ABO/Rh O POSITIVE, Solid Phase Ab Screen Negative, Crossmatch See Detail Assessment/ Plan: Nephrology. Doing well. Complaining of pain in his feet. CPS stable without CP or SOB. No acute events overnight. Vitals, medications, blood work and imaging reviewed in the chart. General: In no apparent distress, Oriented x3, Cooperative HEENT: Atraumatic Neck: Supple Respiratory: Clear to auscultation bilaterally, Normal air movement Cardiovascular: Regular rate/rhythm, Edema Gastrointestinal: Soft and benign, Non-distended Musculoskeletal: No clubbing, No contractures Integumentary: No rashes, No cyanosis Neurological: Normal speech Blood work reviewed in the chart. Imagings Data: EXAM DESCRIPTION: RAD - Chest Pa And Lat (2 Views) - 07/30/2019 6:09 am CLINICAL HISTORY: Follow up pulmonary edema Chest pain. COMPARISON: Chest Pa And Lat (2 Views) dated 07/29/2019; Chest Pa And Lat (2 Views) dated 02/20/2019; Chest Pa And Lat (2 Views) dated 12/04/2018; Chest Single View dated 08/14/2016 FINDINGS: No significant change in lung aeration seen since 07/29/2019. Mild chronic bilateral interstitial lung opacities persist. Small right pleural effusion persists. The heart is mildly to moderately enlarged. IMPRESSION: Stable chest since preceding day's examination. LEFT VENTRICULAR WALL MOTION: NORMAL DOPPLER/COLOR FLOW: MILD MITRAL AND TRICUSPID REGURGITATION. MODERATE TO SEVERE PULMONARY HYPERTENSION. ESTIMATED RIGHT VENTRICULAR SYSTOLIC PRESSURE 60 mmHg. COMMENTS: NORMAL LEFT VENTRICULAR EJECTION FRACTION. MITRAL ANNULAR CALCIFICATION. LEFT VENTRICULAR HYPERTROPHY. MODERATE TO SEVERE PULMONARY HYPERTENSION. MILD MITRAL AND TRICUSPID REGURGITATION. Conclusions/Impression: A/ CKD V/ ESRD Acidosis Hypocalcemia DM II with CKD HTN with CKD/ CHF. Diastolic CHF, chronic. Pulmonary HTN. Anemia in CKD. MICHELLE/ Secondary HyperPTH. Moderate Malnutrition. P/ Continue current POC and Medications. Next HD Monday. Increase Ramipril qhs. Continue Procrit. PD catheter yesterday without complications. PRBC as needed. No NSAIDs. AM labs. Daily weight. Social work to arrange placement at the [facility]. Hepatitis pending.
[2019-08-03] MEDS ORDERED: PREGABALIN 50 MG CAP PO ONE (11:00)
[2019-08-03] MEDS: NIFEDIPINE XL 60 MG TABLET PO SCH ×2 (11:32→20:06)
--- NOTE | 2019-08-03 12:24 | P.PN ---
Subjective Date of Service: 08/03/19 Primary Care Provider: Dr. Culp Chief Complaint: Shortness of breath, edema to the lower extremities Subjective: No new changes, No C/O voiced (s/p PD cath removed - states no cream given for rash - c/o of pain over right mercer , denies any ankle pain) Review of Systems 10-point ROS is otherwise unremarkable Physical Examination - Vital Signs Temperature: 98 F Blood Pressure: 179/78 Pulse: 69 Respirations: 18 Pulse Ox (%): 93 - Physical Exam General: In no apparent distress, Oriented x3, Cooperative HEENT: Atraumatic, Normocephalic, PERRLA Neck: Supple, 2+ carotid pulse no bruit Respiratory: Normal air movement, Diminished Cardiovascular: Regular rate/rhythm, Normal S1 S2, Edema (chronic lymphedema ) Gastrointestinal: Normal bowel sounds, Soft and benign, Non-distended (dsg insitu ) Musculoskeletal: Tenderness (right lower mercer , just above ankle , mild increased warmth ) Neurological: Normal speech, Sensation intact, Cranial nerves 3-12 intact Urinary: Dialysis catheter (right chest ) - Studies 07/29/19 14:20: ABO/Rh O POSITIVE, Solid Phase Ab Screen Negative, Crossmatch See Detail Laboratory Last Values WBC 4.4 K/uL (4.3-10.9) 08/03/19 07:26 RBC 2.59 M/uL (4.33-5.43) L 08/03/19 07:26 Hgb 7.1 g/dL (13.6-17.9) L* 08/03/19 07:26 Hct 22.2 % (39.6-49.0) L 08/03/19 07:26 MCV 85.4 fL (80-100) 08/03/19 07:26 MCH 27.4 pg (27.0-35.0) 08/03/19 07:26 MCHC 32.1 g/dL (32.0-36.0) 08/03/19 07:26 RDW 17.3 % (12.1-15.2) H 08/03/19 07:26 Plt Count 184 K/uL (152-406) 08/03/19 07:26 MPV 8.3 fL (7.6-11.3) 08/03/19 07:26 Neutrophils % 75.2 % (41.7-73.7) H 08/03/19 07:26 Lymphocytes % 8.5 % (15.3-44.8) L 08/03/19 07:26 Monocytes % 11.5 % (3.3-12.3) 08/03/19 07:26 Eosinophils % 3.7 % (0-4.4) 08/03/19 07:26 Basophils % 1.1 % (0-1.3) 08/03/19 07:26 Absolute Neutrophils 3.3 K/uL (1.8-8.0) 08/03/19 07:26 Absolute Lymphocytes 0.4 K/uL (0.7-4.9) L 08/03/19 07:26 Absolute Monocytes 0.5 K/uL (0.1-1.3) 08/03/19 07: Absolute Eosinophils 0.2 K/uL (0-0.5) 08/03/19 07: Absolute Basophils 0.0 K/uL (0-0.5) 08/03/19 07:26 PT 14.1 SECONDS (9.5-12.5) H 07/29/19 13:30 INR 1.20 07/29/19 13:30 Sodium 140 mmol/L (136-145) 08/03/19 07:26 Potassium 4.0 mmol/L (3.5-5.1) 08/03/19 07:26 Chloride 108 mmol/L (98-107) H 08/03/19 07:26 Carbon Dioxide 25 mmol/L (21-32) 08/03/19 07:26 BUN 42 mg/dL (7-18) H 08/03/19 07:26 Creatinine 8.14 mg/dL (0.55-1.3) H* D 08/03/19 07:26 Estimated GFR 9 mL/min (=/>90) L 08/03/19 07:26 Glucose 84 mg/dL (74-106) 08/03/19 07:26 POC Glucose 104 mg/dl (65-120) 08/02/19 20:09 Calcium 8.5 mg/dL (8.5-10.1) 08/03/19 07:26 Magnesium 2.0 mg/dL (1.8-2.4) 08/03/19 07:26 Total Bilirubin 0.2 mg/dL (0.2-1.0) 08/03/19 07:26 Direct Bilirubin < 0.1 mg/dL (0-0.2) 07/29/19 13:30 AST 7 U/L (15-37) L 08/03/19 07:26 ALT < 6 U/L (12-78) L 08/03/19 07:26 Alkaline Phosphatase 43 U/L (45-117) L 08/03/19 07:26 Rapid Troponin I 0.03 ng/mL (0.0-0.045) 07/29/19 13:30 NT-Pro-B Natriuret Pep 37146 pg/mL (<125) H 07/29/19 13:30 Serum Total Protein 6.2 g/dL (6.4-8.2) L 08/03/19 07:26 Albumin 2.6 g/dL (3.4-5.0) L 08/03/19 07:26 Globulin 3.6 g/dL (2.3-3.5) H 08/03/19 07:26 Albumin/Globulin Ratio 0.7 (1.1-1.8) L 08/03/19 07:26 Triglycerides 63 mg/dL (<150) 07/30/19 04:14 Cholesterol 99 mg/dL (<200) 07/30/19 04:14 LDL Cholesterol, Calc 52 (<130) 07/30/19 04:14 HDL Cholesterol 34 mg/dL (40-60) L 07/30/19 04:14 Cholesterol/HDL Ratio 2.91 07/30/19 04:14 TSH 2.430 uIU/mL (0.360-3.740) 07/30/19 04:14 Free T4 0.91 ng/dL (0.76-1.46) 07/30/19 04:14 ABO/Rh O POSITIVE 07/29/19 14:20 Solid Phase Ab Screen Negative 07/29/19 14:20 Crossmatch See Detail 08/01/19 Unknown Medications List Reviewed: Yes Assessment & Plan Physician Review: Patient Assessed, Agree with Above Assessment and Plan Physician Review Additional Text: Impression: Shortness of breath secondary to pulmonary edema related to end-stage renal disease on peritoneal dialysis complicated with underlying acute on chronic diastolic CHF Anemia of chronic disease Hypertension Poor compliance with peritoneal dialysis 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 Fall precautions in place. Plan: ESRD with pulmonary edema - c/w HD MWF -Appreciate renal follow up -Awaiting placement at outpt unit -s/p PD cath removed now Anemia of chronic disease: stabel at 7.1 , will start Epogen -follow iron level -s/p PRBC 2 unit -follow Epogen dosing at dialysis Right Lower extremity pain - dubt but possible cellulitis from chronic lymphedema -possible gouty arthritis , neuropathy --obtain ESRD , CRP , uric acid -start neurontin Hypertension: still uncontrolled -c/w Ramipril-s/p dose increased -c/w Doxazosin/nifedipine/hydralzine Poor compliance with peritoneal dialysis: Continue as above Blindness 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 Fall precautions in place. Dispo - when outpatient dialysis arranged
[2019-08-03] MEDS ORDERED: COLCHICINE 0.6 MG TAB PO ONE (12:26)
[2019-08-03] MEDS ORDERED: EPOETIN ALFA 10,000 UNIT/ML VIAL IV SCH (12:30)
[2019-08-03 13:33] LABS: C-Reactive Protein 37.3 mg/L (<3.00)
[2019-08-03 13:34] LABS: Uric Acid 4.8 mg/dL (3.5-7.2)
[2019-08-03] MEDS: PREGABALIN 50 MG CAP PO SCH (14:29)
[2019-08-03 19:47] LABS: HBsAG Nonreactive (Nonreactive)
[2019-08-03] MEDS: ramipriL 5 MG CAP PO SCH (20:00)
[2019-08-04] MEDS: HYDROCODONE/APAP 7.5/325 MG TAB PO PRN ×2 (02:22→16:55)
[2019-08-04 06:15] LABS: Absolute Lymphocytes (CBC) 0.5 K/uL (0.7-4.9); Basophils % 0.9 % (0-1.3); Hematocrit 21.8 % (39.6-49.0); Lymphocytes % 9.8 % (15.3-44.8); MPV 8.4 fL (7.6-11.3); RBC Red Blood Cell Count 2.55 M/uL (4.33-5.43)
[2019-08-04 06:44] LABS: AST/SGOT 8 U/L (15-37); Albumin 2.6 g/dL (3.4-5.0); Alkaline Phosphatase 54 U/L (45-117); BUN Blood Urea Nitrogen 48 mg/dL (7-18); Bicarbonate 26 mmol/L (21-32); Bilirubin Total 0.2 mg/dL (0.2-1.0); Glucose Level 105 mg/dL (74-106); Potassium 4.3 mmol/L (3.5-5.1); Protein, Total 6.4 g/dL (6.4-8.2); Sodium Level 139 mmol/L (136-145)
[2019-08-04 06:48] LABS: ALT/SGPT < 6 U/L (12-78)
[2019-08-04] MEDS: SILDENAFIL CITRATE PO SCH (09:00)
[2019-08-04] MEDS: PREGABALIN 50 MG CAP PO SCH ×2 (09:28→09:39)
[2019-08-04] MEDS: SEVELAMER CARBONATE 800 MG TABLET PO SCH ×3 (09:31→16:54)
[2019-08-04] MEDS: HEPARIN 5000 UNIT/ML 1 ML VIAL SQ SCH ×2 (09:31→21:30)
[2019-08-04] MEDS: VITAMIN D 5,000 UNIT CAP PO SCH (09:31)
[2019-08-04] MEDS: FUROSEMIDE 40 MG TABLET PO SCH ×2 (09:32→16:54)
[2019-08-04] MEDS: DOXAZOSIN 4 MG TAB PO SCH ×2 (09:32→21:35)
[2019-08-04] MEDS: HYDRALAZINE HCL 25 MG TABLET PO SCH ×2 (09:32→21:31)
[2019-08-04] MEDS: CALCITROL 0.25 MCG CAP PO SCH (09:33)
[2019-08-04] MEDS: AMLODIPINE 10 MG TAB PO SCH (09:33)
--- NOTE | 2019-08-04 09:37 | P.PN ---
Subjective Date of Service: 08/04/19 Primary Care Provider: Dr. Culp Chief Complaint: Shortness of breath, edema to the lower extremities Subjective: No new changes, C/O voiced (-still right mercer pain , not relived by colchicine or lyrica started yesterday - no fever or chills -still feels weak) Review of Systems 10-point ROS is otherwise unremarkable Physical Examination - Vital Signs Temperature: 97.5 F Blood Pressure: 124/61 Pulse: 65 Respirations: 18 Pulse Ox (%): 93 - Physical Exam General: In no apparent distress, Oriented x3 HEENT: Atraumatic, Normocephalic, PERRLA Neck: Supple, 2+ carotid pulse no bruit, JVD not distended, Other (right chest permcath ) Respiratory: Normal air movement (improving ), Diminished Cardiovascular: Normal pulses, Regular rate/rhythm, Normal S1 S2 Gastrointestinal: Normal bowel sounds, Soft and benign, Non-distended Musculoskeletal: Swelling (over distal R leg , increased warmth , mild low calf tenderness), Tenderness Integumentary: Warmth (RLE) - Studies Laboratory Last Values WBC 4.7 K/uL (4.3-10.9) 08/04/19 05:32 RBC 2.55 M/uL (4.33-5.43) L 08/04/19 05:32 Hgb 7.2 g/dL (13.6-17.9) L* 08/04/19 05:32 Hct 21.8 % (39.6-49.0) L 08/04/19 05:32 MCV 85.8 fL (80-100) 08/04/19 05:32 MCH 28.4 pg (27.0-35.0) 08/04/19 05:32 MCHC 33.1 g/dL (32.0-36.0) 08/04/19 05:32 RDW 17.2 % (12.1-15.2) H 08/04/19 05:32 Plt Count 210 K/uL (152-406) 08/04/19 05:32 MPV 8.4 fL (7.6-11.3) 08/04/19 05:32 Neutrophils % 74.3 % (41.7-73.7) H 08/04/19 05:32 Lymphocytes % 9.8 % (15.3-44.8) L 08/04/19 05:32 Monocytes % 10.7 % (3.3-12.3) 08/04/19 05:32 Eosinophils % 4.3 % (0-4.4) 08/04/19 05:32 Basophils % 0.9 % (0-1.3) 08/04/19 05:32 Absolute Neutrophils 3.5 K/uL (1.8-8.0) 08/04/19 05:32 Absolute Lymphocytes 0.5 K/uL (0.7-4.9) L 08/04/19 05:32 Absolute Monocytes 0.5 K/uL (0.1-1.3) 08/04/19 05:32 Absolute Eosinophils 0.2 K/uL (0-0.5) 08/04/19 05:32 Absolute Basophils 0.0 K/uL (0-0.5) 08/04/19 05:32 ESR Westergren 68 mm/HR (0-15) H 08/03/19 13:32 PT 14.1 SECONDS (9.5-12.5) H 07/29/19 13:30 INR 1.20 07/29/19 13:30 Sodium 139 mmol/L (136-145) 08/04/19 05:32 Potassium 4.3 mmol/L (3.5-5.1) 08/04/19 05:32 Chloride 106 mmol/L (98-107) 08/04/19 05:32 Carbon Dioxide 26 mmol/L (21-32) 08/04/19 05:32 BUN 48 mg/dL (7-18) H 08/04/19 05:32 Creatinine 9.22 mg/dL (0.55-1.3) H* D 08/04/19 05:32 Estimated GFR 7 mL/min (=/>90) L 08/04/19 05:32 Glucose 105 mg/dL (74-106) 08/04/19 05:32 POC Glucose 104 mg/dl (65-120) 08/02/19 20:09 Uric Acid 4.8 mg/dL (3.5-7.2) D 08/03/19 12:47 Calcium 8.3 mg/dL (8.5-10.1) L 08/04/19 05:32 Magnesium 2.0 mg/dL (1.8-2.4) 08/03/19 07:26 Total Bilirubin 0.2 mg/dL (0.2-1.0) 08/04/19 05:32 Direct Bilirubin < 0.1 mg/dL (0-0.2) 07/29/19 13:30 AST 8 U/L (15-37) L 08/04/19 05:32 ALT < 6 U/L (12-78) L 08/04/19 05:32 Alkaline Phosphatase 54 U/L (45-117) 08/04/19 05:32 Rapid Troponin I 0.03 ng/mL (0.0-0.045) 07/29/19 13:30 C-Reactive Protein 37.30 mg/L (<3.00) H 08/03/19 12:47 NT-Pro-B Natriuret Pep 67142 pg/mL (<125) H 07/29/19 13:30 Serum Total Protein 6.4 g/dL (6.4-8.2) 08/04/19 05:32 Albumin 2.6 g/dL (3.4-5.0) L 08/04/19 05:32 Globulin 3.8 g/dL (2.3-3.5) H 08/04/19 05:32 Albumin/Globulin Ratio 0.7 (1.1-1.8) L 08/04/19 05:32 Triglycerides 63 mg/dL (<150) 07/30/19 04:14 Cholesterol 99 mg/dL (<200) 07/30/19 04:14 LDL Cholesterol, Calc 52 (<130) 07/30/19 04:14 HDL Cholesterol 34 mg/dL (40-60) L 07/30/19 04:14 Cholesterol/HDL Ratio 2.91 07/30/19 04:14 TSH 2.430 uIU/mL (0.360-3.740) 07/30/19 04:14 Free T4 0.91 ng/dL (0.76-1.46) 07/30/19 04:14 Hep Bs Antigen Nonreactive (Nonreactive) 07/30/19 11:42 Hep Bs Antibody Nonreactive (Nonreactive) 07/30/19 11:42 Hep Bs Antibody, Quant <5 mIU/mL (>=10) L 07/30/19 04:14 Hep B Core Total Ab Nonreactive (Nonreactive) 07/30/19 11:42 Hepatitis C Antibody Nonreactive (Nonreactive) 07/30/19 11:42 Hep C Ab Signal/Cutoff 0.03 ratio (<1.00) 07/30/19 11:42 ABO/Rh O POSITIVE 07/29/19 14:20 Solid Phase Ab Screen Negative 07/29/19 14:20 Crossmatch See Detail 08/01/19 Unknown Medications List Reviewed: Yes Assessment & Plan Physician Review: Patient Assessed, Agree with Above Assessment and Plan Physician Review Additional Text: Impression: Shortness of breath secondary to pulmonary edema related to end-stage renal disease on peritoneal dialysis complicated with underlying acute on chronic diastolic CHF Anemia of chronic disease Hypertension Poor compliance with peritoneal dialysis 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 Fall precautions in place. Plan: ESRD with pulmonary edema - c/w HD in am MWF -continue renal follow up -hepatitis panel negative now , follow plan for placement at outpt unit in am -s/p PD cath removed now Anemia of chronic disease: improved slightly to 7.2 -c/w started Epogen -follow iron level -s/p PRBC 2 unit -follow Epogen dosing at dialysis Right Lower extremity pain -persistent ,may be due to cellulitis given eelvate CRP vs neuropathy - low uric acid and location r/o gouty arthritis - will obtain blood cx , LE US to r/o DVT , MRI LE for r/o osteomyelitis -start abx with vanco- one dose today , follow pharmacy dosing post HD -c/w started Lyrica acid -start neurontin Hypertension: controlled -c/w Ramipril-/Doxazosin/nifedipine/hydralzine Poor compliance with peritoneal dialysis: Continue as above Blindness 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 Fall precautions in place. Dispo - when outpatient dialysis arranged
[2019-08-04] MEDS: NIFEDIPINE XL 60 MG TABLET PO SCH ×2 (09:38→21:00)
[2019-08-04] MEDS: ISOSORBIDE MONO SR 60 MG TAB PO SCH (09:38)
[2019-08-04] MEDS ORDERED: VANCOMYCIN 1 GM in NA CHLORIDE 0.9% 250 ML IVPB ONE (10:00)
--- NOTE | 2019-08-04 15:36 | RAD REPORT ---
EXAM DESCRIPTION: US - Extrem Venous W [facility] [place] - 08/04/2019 3:31 pm CLINICAL HISTORY: Right leg pain r/o DVT Bilateral leg edema and swelling. COMPARISON: Extrem Venous W [facility] [place] dated 07/29/2019 TECHNIQUE: Real-time sonographic interrogation of the left and right lower extremity deep venous sys tems was performed. FINDINGS: Normal compressibility, flow augmentation, phasic flow and spontaneous flow is identified in both the left and right lower extremity deep venous systems. IMPRESSION: No sonographic evidence of left or right lower extremity deep venous thrombosis.
[2019-08-04] MEDS ORDERED: PREGABALIN 50 MG CAP PO SCH (21:00)
[2019-08-04] MEDS: ramipriL 5 MG CAP PO SCH (21:31)
[2019-08-05] MEDS: SILDENAFIL CITRATE PO SCH (09:00)
[2019-08-05] MEDS: SEVELAMER CARBONATE 800 MG TABLET PO SCH ×3 (09:30→17:10)
[2019-08-05] MEDS: DOXAZOSIN 4 MG TAB PO SCH ×2 (09:30→21:00)
[2019-08-05] MEDS: CALCITROL 0.25 MCG CAP PO SCH (09:30)
[2019-08-05] MEDS: ISOSORBIDE MONO SR 60 MG TAB PO SCH (09:31)
[2019-08-05] MEDS: AMLODIPINE 10 MG TAB PO SCH (09:31)
[2019-08-05] MEDS: FUROSEMIDE 40 MG TABLET PO SCH ×2 (09:31→17:10)
[2019-08-05] MEDS: HYDRALAZINE HCL 25 MG TABLET PO SCH ×2 (09:31→21:02)
[2019-08-05] MEDS: PREGABALIN 50 MG CAP PO SCH (09:31)
[2019-08-05] MEDS: VITAMIN D 5,000 UNIT CAP PO SCH (09:32)
[2019-08-05] MEDS: NIFEDIPINE XL 60 MG TABLET PO SCH ×2 (09:34→21:01)
[2019-08-05] MEDS ORDERED: GABAPENTIN 100 MG CAP PO ONE (09:38)
[2019-08-05 09:43] LABS: Absolute Lymphocytes (CBC) 0.5 K/uL (0.7-4.9); Basophils % 1.2 % (0-1.3); Hematocrit 23.3 % (39.6-49.0); Lymphocytes % 12.2 % (15.3-44.8); MPV 7.6 fL (7.6-11.3)
[2019-08-05 10:00] LABS: ALT/SGPT < 6 U/L (12-78); AST/SGOT 10 U/L (15-37); Albumin 2.6 g/dL (3.4-5.0); Alkaline Phosphatase 55 U/L (45-117); BUN Blood Urea Nitrogen 52 mg/dL (7-18); Bicarbonate 28 mmol/L (21-32); Bilirubin Total 0.2 mg/dL (0.2-1.0); Glucose Level 86 mg/dL (74-106); Protein, Total 6.5 g/dL (6.4-8.2); Sodium Level 141 mmol/L (136-145)
--- NOTE | 2019-08-05 10:53 | RAD REPORT ---
EXAM DESCRIPTION: MRI - Lower Extremity Wo - 08/05/2019 9:16 am CLINICAL HISTORY: Leg pain and swelling COMPARISON: None. TECHNIQUE: Axial, sagittal and coronal magnetic resonance imaging right lower extremity FINDINGS: Diffuse edema is present within predominately the anterolateral subcutaneous tissue. A soft tissue abscess is not seen. The visualized tibia and fibula demonstrate normal signal. IMPRESSION: Diffuse edema within the subcutaneous tissues probably a cellulitis No evidence of osteomyelitis
[2019-08-05] MEDS ORDERED: HYDROCODONE/APAP 5/325 MG TAB PO PRN (15:48)
[2019-08-05] MEDS ORDERED: TRAMADOL HCL 50 MG TAB PO PRN (15:48)
--- NOTE | 2019-08-05 19:47 | P.PN ---
Subjective Date of Service: 08/05/19 Primary Care Provider: Dr. Culp Chief Complaint: Shortness of breath, edema to the lower extremities Subjective: No new changes (Complains bilateral leg pain) Review of Systems General: Unremarkable Eyes: Unremarkable ENT: Unremarkable Respiratory: Unremarkable Cardiovascular: Unremarkable Gastrointestinal: Unremarkable Musculoskeletal: Leg Pain, Foot Pain, Pedal edema Integumentary: Unremarkable Physical Examination - Vital Signs Temperature: 97.2 F Blood Pressure: 145/69 Pulse: 68 Respirations: 15 Pulse Ox (%): 99 - Physical Exam General: Alert, In no apparent distress, Oriented x3, Cooperative HEENT: Atraumatic, Normocephalic Neck: Supple, 2+ carotid pulse no bruit Respiratory: Clear to auscultation bilaterally, Normal air movement Cardiovascular: Normal pulses, Regular rate/rhythm, Normal S1 S2, Edema Gastrointestinal: Normal bowel sounds, Soft and benign, Non-distended Musculoskeletal: No clubbing, No erythema, Swelling, Tenderness Integumentary: No rashes, No breakdown Neurological: Normal speech, Normal strength at 5/5 x4 extr, Normal tone - Studies Medications List Reviewed: Yes Assessment And Plan - Plan Shortness of breath secondary to pulmonary edema related to end-stage renal disease on peritoneal dialysis complicated with underlying acute on chronic diastolic CHF Anemia of chronic disease Hypertension Poor compliance with peritoneal dialysis Blindness 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 Venous Doppler and MRI unremarkable. -relieved by Lyrica. However, he felt dizzy when taking lyrica. Late he suffer from neuropathy. -will consult neurologist. -Less likely due to cellulitis because there is no redness or warming. No definite pain site. -continue antibiotics at this moment. Hypertension: controlled -c/w Ramipril-/Doxazosin/nifedipine/hydralzine Poor compliance with peritoneal dialysis: Continue as above Blindness 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 Fall precautions in place. Dispo - when outpatient dialysis arranged Discharge Plan: Care Home Plan to discharge in: 24 Hours Physician Review: Patient Assessed, Agree with Above Assessment and Plan Physician Review Additional Text: Impression: Shortness of breath secondary to pulmonary edema related to end-stage renal disease on peritoneal dialysis complicated with underlying acute on chronic diastolic CHF Anemia of chronic disease Hypertension Poor compliance with peritoneal dialysis 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 Fall precautions in place. Plan: ESRD with pulmonary edema - c/w HD in am MWF -continue renal follow up -hepatitis panel negative now , follow plan for placement at outpt unit in am -s/p PD cath removed now Anemia of chronic disease: improved slightly to 7.2 -c/w started Epogen -follow iron level -s/p PRBC 2 unit -follow Epogen dosing at dialysis Right Lower extremity pain -persistent ,may be due to cellulitis given eelvate CRP vs neuropathy - low uric acid and location r/o gouty arthritis - will obtain blood cx , LE US to r/o DVT , MRI LE for r/o osteomyelitis -start abx with vanco- one dose today , follow pharmacy dosing post HD -c/w started Lyrica acid -start neurontin Hypertension: controlled -c/w Ramipril-/Doxazosin/nifedipine/hydralzine Poor compliance with peritoneal dialysis: Continue as above Blindness 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 Fall precautions in place. Dispo - when outpatient dialysis arranged
--- NOTE | 2019-08-05 20:13 | P.PN ---
Date of Service: 08/05/19 Vital Signs Temp Pulse Resp BP Pulse Ox 97.2 F 68 15 145/69 H 99 08/05/19 19:47 08/05/19 19:47 08/05/19 19:47 08/05/19 19:47 08/05/19 19:47 Medications Acetaminophen (Tylenol -Extra Strength) 500 mg PO Q4HP PRN PRN Reason: TEMP > 101' F Stop: 08/28/19 15:41 Hydrocodone Bitart/Acetaminophen ([place] 5/325) 1 tab PO Q4H PRN PRN Reason: Pain scale 5-7 (Moderate) Stop: 09/04/19 15:49 Amlodipine Besylate (Norvasc) 10 mg PO DAILY [facility] Stop: 08/29/19 01:53 Last Admin: 08/05/19 09:31 Dose: 10 mg Calcitriol (Rocaltrol) 0.5 mcg PO DAILY [facility] Stop: 08/30/19 09:01 Last Admin: 08/05/19 09:30 Dose: 0.5 mcg Cholecalciferol (Vitamin D 5,000 Iu Cap) 5,000 unit PO DAILY [facility] Stop: 08/30/19 09:01 Last Admin: 08/05/19 09:32 Dose: 5,000 unit Doxazosin Mesylate (Cardura) 8 mg PO BID [facility] Stop: 08/28/19 21:01 Last Admin: 08/05/19 09:30 Dose: 8 mg Epoetin Cuco (Retacrit) 10,000 unit IV EVERY HD [facility] Stop: 09/02/19 12:31 Furosemide (Lasix) 80 mg PO BIDL [facility] Stop: 09/01/19 17:01 Last Admin: 08/05/19 17:10 Dose: 80 mg Gabapentin (Neurontin) 100 mg PO BID [facility] Stop: 09/04/19 21:01 Heparin Sodium (Porcine) (Heparin 1,000 Units/Ml) 6,000 unit IV EVERY HD PRN PRN Reason: FLUSH AFTER EACH USE Stop: 08/30/19 06:36 Home Med (Sildenafil Citrate [Sildenafil Citrate]) 1 tab PO DAILY [facility] Stop: 09/02/19 09:01 Last Admin: 08/05/19 09:00 Dose: Not Given Hydralazine HCl (Apresoline) 10 mg IV Q6HP PRN PRN Reason: Titrate to SBP (MUST DEFINE) Stop: 08/29/19 01:53 Hydralazine HCl (Apresoline) 100 mg PO BID [facility] Stop: 09/01/19 21:01 Last Admin: 08/05/19 09:31 Dose: 100 mg Albumin Human (Albumin 25%) 50 mls @ 100 mls/hr IV EVERY HD [facility] Stop: 08/30/19 07:01 Sodium Chloride (Sodium Chloride) 250 mls @ 0 mls/hr IV .Q0M [facility] Stop: 08/31/19 09:01 Isosorbide Mononitrate (Imdur) 60 mg PO DAILY [facility] Stop: 08/29/19 09:01 Last Admin: 08/05/19 09:31 Dose: 60 mg Mannitol (Mannitol 12.5 Gm/50 Ml Vial) 12.5 gm IV EVERY HD PRN PRN Reason: Titrate to SBP (MUST DEFINE) Stop: 08/30/19 06:36 Nifedipine (Procardia Xl) 60 mg PO BID [facility] Stop: 08/28/19 21:01 Last Admin: 08/05/19 09:34 Dose: 60 mg Ondansetron HCl (Zofran) 4 mg IV Q6HP PRN PRN Reason: NAUSEA / VOMITING Stop: 08/28/19 15:41 Ramipril (Altace) 10 mg PO BEDTIME [facility] Stop: 09/02/19 21:01 Last Admin: 08/04/19 21:31 Dose: 10 mg Sevelamer Carbonate (Renvela) 1,600 mg PO TIDWM [facility] Stop: 08/30/19 08:01 Last Admin: 08/05/19 17:10 Dose: 1,600 mg Sodium Chloride (Normal Saline Flush) 10 ml IV BID [facility] Stop: 08/28/19 21:01 Last Admin: 08/05/19 09:32 Dose: 10 ml Tramadol HCl (Ultram) 50 mg PO Q6H PRN PRN Reason: Pain scale 2-4 (Mild) Stop: 09/04/19 15:49 Assessment/ Plan: Nephrology. Doing well. Complaining of pain in his feet with Right greater than Left. CPS stable without CP or SOB. No acute events overnight. Vitals, medications, blood work and imaging reviewed in the chart. General: In no apparent distress, Oriented x3, Cooperative HEENT: Atraumatic Neck: Supple Respiratory: Clear to auscultation bilaterally, Normal air movement Cardiovascular: Regular rate/rhythm, Edema Gastrointestinal: Soft and benign, Non-distended Musculoskeletal: No clubbing, No contractures Integumentary: No rashes, No cyanosis Neurological: Normal speech Blood work reviewed in the chart. Imagings Data: EXAM DESCRIPTION: RAD - Chest Pa And Lat (2 Views) - 07/30/2019 6:09 am CLINICAL HISTORY: Follow up pulmonary edema Chest pain. COMPARISON: Chest Pa And Lat (2 Views) dated 07/29/2019; Chest Pa And Lat (2 Views) dated 02/20/2019; Chest Pa And Lat (2 Views) dated 12/04/2018; Chest Single View dated 08/14/2016 FINDINGS: No significant change in lung aeration seen since 07/29/2019. Mild chronic bilateral interstitial lung opacities persist. Small right pleural effusion persists. The heart is mildly to moderately enlarged. IMPRESSION: Stable chest since preceding day's examination. LEFT VENTRICULAR WALL MOTION: NORMAL DOPPLER/COLOR FLOW: MILD MITRAL AND TRICUSPID REGURGITATION. MODERATE TO SEVERE PULMONARY HYPERTENSION. ESTIMATED RIGHT VENTRICULAR SYSTOLIC PRESSURE 60 mmHg. COMMENTS: NORMAL LEFT VENTRICULAR EJECTION FRACTION. MITRAL ANNULAR CALCIFICATION. LEFT VENTRICULAR HYPERTROPHY. MODERATE TO SEVERE PULMONARY HYPERTENSION. MILD MITRAL AND TRICUSPID REGURGITATION. Conclusions/Impression: A/ CKD V/ ESRD Acidosis Hypocalcemia DM II with CKD HTN with CKD/ CHF. Diastolic CHF, chronic. Pulmonary HTN. Anemia in CKD. MICHELLE/ Secondary HyperPTH. Moderate Malnutrition. P/ Continue current POC and Medications. Next HD Monday. Continue Procrit. PRBC as needed. No NSAIDs. AM labs. Daily weight. Social work to arrange placement at the [facility]. Hepatitis pending.
[2019-08-05] MEDS ORDERED: EPOETIN ALFA 20,000 UNIT/1 ML VIAL SQ SCH (20:15)
[2019-08-05] MEDS: ramipriL 5 MG CAP PO SCH (21:00)
[2019-08-05] MEDS ORDERED: DOXAZOSIN 2 MG TAB ONE (21:02)
[2019-08-05] MEDS: GABAPENTIN 100 MG CAP PO SCH (21:03)
[2019-08-06 06:03] LABS: Absolute Lymphocytes (CBC) 0.5 K/uL (0.7-4.9); Basophils % 1.2 % (0-1.3); Hematocrit 21.7 % (39.6-49.0); Lymphocytes % 12.4 % (15.3-44.8); MPV 8.2 fL (7.6-11.3); RBC Red Blood Cell Count 2.54 M/uL (4.33-5.43)
[2019-08-06] MEDS: SILDENAFIL CITRATE PO SCH (09:00)
[2019-08-06] MEDS ORDERED: EPOETIN ALFA 20,000 UNIT/1 ML VIAL SQ SCH (09:00)
[2019-08-06] MEDS: DOXAZOSIN 4 MG TAB PO SCH ×2 (09:00→23:26)
[2019-08-06] MEDS ORDERED: DOXAZOSIN 2 MG TAB ONE (09:23)
[2019-08-06] MEDS: HYDRALAZINE HCL 25 MG TABLET PO SCH ×2 (09:23→23:12)
[2019-08-06] MEDS: AMLODIPINE 10 MG TAB PO SCH (09:23)
[2019-08-06] MEDS: NIFEDIPINE XL 60 MG TABLET PO SCH ×2 (09:24→23:11)
[2019-08-06] MEDS: SEVELAMER CARBONATE 800 MG TABLET PO SCH ×3 (09:24→16:40)
[2019-08-06] MEDS: VITAMIN D 5,000 UNIT CAP PO SCH (09:24)
[2019-08-06] MEDS: FUROSEMIDE 40 MG TABLET PO SCH ×2 (09:24→16:40)
[2019-08-06] MEDS: ISOSORBIDE MONO SR 60 MG TAB PO SCH (09:25)
[2019-08-06] MEDS: CALCITROL 0.25 MCG CAP PO SCH (09:25)
[2019-08-06] MEDS: GABAPENTIN 100 MG CAP PO SCH (09:25)
[2019-08-06] MEDS ORDERED: CYCLOBENZAPRINE 10 MG TAB PO ONE (09:37)
[2019-08-06] MEDS ORDERED: GABAPENTIN 100 MG CAP PO ONE (10:25)
[2019-08-06] MEDS ORDERED: GABAPENTIN 100 MG CAP PO SCH (14:00)
--- NOTE | 2019-08-06 16:52 | P.PN ---
Subjective Date of Service: 08/06/19 Primary Care Provider: Dr. Culp Chief Complaint: Shortness of breath, edema to the lower extremities Subjective: No new changes (Pt continues to complain lower ext pain) Review of Systems General: Malaise Eyes: Unremarkable ENT: Unremarkable Respiratory: Unremarkable Cardiovascular: Unremarkable Genitourinary: Unremarkable Musculoskeletal: Leg Pain, Foot Pain, Pedal edema Integumentary: Unremarkable Neurological: Unremarkable Lymphatics: Unremarkable Physical Examination - Vital Signs Temperature: 97.4 F Blood Pressure: 160/78 Pulse: 71 Respirations: 16 Pulse Ox (%): 98 - Physical Exam General: Alert, Oriented x3, Cooperative, Mild distress HEENT: Atraumatic, Normocephalic, PERRLA, Mucous membr. moist/pink Neck: Supple, 2+ carotid pulse no bruit Respiratory: Clear to auscultation bilaterally, Normal air movement Cardiovascular: No edema, Normal pulses, Regular rate/rhythm, Normal S1 S2 Gastrointestinal: Normal bowel sounds, Soft and benign, Non-distended Musculoskeletal: No clubbing, No swelling Integumentary: No rashes, No breakdown Neurological: Normal gait, Normal speech - Studies Medications List Reviewed: Yes Assessment And Plan - Plan Plan: ESRD with pulmonary edema - c/w HD in am MWF -continue renal follow up -hepatitis panel negative now , follow plan for placement at outpt unit in am -s/p PD cath removed now Anemia of chronic disease: improved slightly to 7.2 -c/w started Epogen -follow iron level -s/p PRBC 2 unit -follow Epogen dosing at dialysis Right Lower extremity pain, likely due to neuropathy -no redness. Venous Doppler and MRI unremarkable. -relieved by Lyrica. However, he felt dizzy when taking lyrica. Late he suffer from neuropathy. -will consult neurologist for neuropathy. -Started gabapentin (300mg bid) and cymbalta -Less likely due to cellulitis because there is no redness or warming. No definite pain site. -continue antibiotics at this moment. Hypertension: controlled -c/w Ramipril-/Doxazosin/nifedipine/hydralzine Poor compliance with peritoneal dialysis: Continue as above Blindness 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 Fall precautions in place. Dispo - when outpatient dialysis arranged Physician Review: Patient Assessed, Agree with Above Assessment and Plan
[2019-08-06 17:56] VITALS: O2SAT 99
--- NOTE | 2019-08-06 21:49 | P.PN ---
Date of Service: 08/06/19 Vital Signs Temp Pulse Resp BP Pulse Ox 97.4 F 71 16 160/78 H 98 08/06/19 16:52 08/06/19 16:52 08/06/19 16:52 08/06/19 16:52 08/06/19 16:52 Medications Acetaminophen (Tylenol -Extra Strength) 500 mg PO Q4HP PRN PRN Reason: TEMP > 101' F Stop: 08/28/19 15:41 Hydrocodone Bitart/Acetaminophen ([place] 5/325) 1 tab PO Q4H PRN PRN Reason: Pain scale 5-7 (Moderate) Stop: 09/04/19 15:49 Amlodipine Besylate (Norvasc) 10 mg PO DAILY [facility] Stop: 08/29/19 01:53 Last Admin: 08/06/19 09:23 Dose: 10 mg Calcitriol (Rocaltrol) 0.5 mcg PO DAILY [facility] Stop: 08/30/19 09:01 Last Admin: 08/06/19 09:25 Dose: 0.5 mcg Cholecalciferol (Vitamin D 5,000 Iu Cap) 5,000 unit PO DAILY [facility] Stop: 08/30/19 09:01 Last Admin: 08/06/19 09:24 Dose: 5,000 unit Doxazosin Mesylate (Cardura) 8 mg PO BID [facility] Stop: 08/28/19 21:01 Last Admin: 08/06/19 09:00 Dose: Not Given Duloxetine HCl (Cymbalta Delayed Release Pellets) 30 mg PO DAILY [facility] Stop: 09/06/19 09:01 Epoetin Cuco (Retacrit) 10,000 unit IV EVERY HD [facility] Stop: 09/02/19 12:31 Furosemide (Lasix) 80 mg PO BIDL [facility] Stop: 09/01/19 17:01 Last Admin: 08/06/19 16:40 Dose: 80 mg Gabapentin (Neurontin) 300 mg PO BID [facility] Stop: 09/05/19 21:01 Home Med (Sildenafil Citrate [Sildenafil Citrate]) 1 tab PO DAILY [facility] Stop: 09/02/19 09:01 Last Admin: 08/06/19 09:00 Dose: Not Given Hydralazine HCl (Apresoline) 10 mg IV Q6HP PRN PRN Reason: Titrate to SBP (MUST DEFINE) Stop: 08/29/19 01:53 Hydralazine HCl (Apresoline) 100 mg PO BID [facility] Stop: 09/01/19 21:01 Last Admin: 08/06/19 09:23 Dose: 100 mg Albumin Human (Albumin 25%) 50 mls @ 100 mls/hr IV EVERY HD [facility] Stop: 08/30/19 07:01 Sodium Chloride (Sodium Chloride) 250 mls @ 0 mls/hr IV .Q0M [facility] Stop: 08/31/19 09:01 Isosorbide Mononitrate (Imdur) 60 mg PO DAILY [facility] Stop: 08/29/19 09:01 Last Admin: 08/06/19 09:25 Dose: 60 mg Mannitol (Mannitol 12.5 Gm/50 Ml Vial) 12.5 gm IV EVERY HD PRN PRN Reason: Titrate to SBP (MUST DEFINE) Stop: 08/30/19 06:36 Nifedipine (Procardia Xl) 60 mg PO BID [facility] Stop: 08/28/19 21:01 Last Admin: 08/06/19 09:24 Dose: 60 mg Ondansetron HCl (Zofran) 4 mg IV Q6HP PRN PRN Reason: NAUSEA / VOMITING Stop: 08/28/19 15:41 Ramipril (Altace) 10 mg PO BEDTIME [facility] Stop: 09/02/19 21:01 Last Admin: 08/05/19 21:00 Dose: 10 mg Sevelamer Carbonate (Renvela) 1,600 mg PO TIDWM [facility] Stop: 08/30/19 08:01 Last Admin: 08/06/19 16:40 Dose: 1,600 mg Sodium Chloride (Normal Saline Flush) 10 ml IV BID [facility] Stop: 08/28/19 21:01 Last Admin: 08/06/19 09:26 Dose: 10 ml Tramadol HCl (Ultram) 50 mg PO Q6H PRN PRN Reason: Pain scale 2-4 (Mild) Stop: 09/04/19 15:49 Assessment/ Plan: Nephrology. Doing well. Complaining of pain in his feet with Right greater than Left. CPS stable without CP or SOB. No acute events overnight. Vitals, medications, blood work and imaging reviewed in the chart. General: In no apparent distress, Oriented x3, Cooperative HEENT: Atraumatic Neck: Supple Respiratory: Clear to auscultation bilaterally, Normal air movement Cardiovascular: Regular rate/rhythm, Edema Gastrointestinal: Soft and benign, Non-distended Musculoskeletal: No clubbing, No contractures Integumentary: No rashes, No cyanosis Neurological: Normal speech Blood work reviewed in the chart. Imagings Data: EXAM DESCRIPTION: RAD - Chest Pa And Lat (2 Views) - 07/30/2019 6:09 am CLINICAL HISTORY: Follow up pulmonary edema Chest pain. COMPARISON: Chest Pa And Lat (2 Views) dated 07/29/2019; Chest Pa And Lat (2 Views) dated 02/20/2019; Chest Pa And Lat (2 Views) dated 12/04/2018; Chest Single View dated 08/14/2016 FINDINGS: No significant change in lung aeration seen since 07/29/2019. Mild chronic bilateral interstitial lung opacities persist. Small right pleural effusion persists. The heart is mildly to moderately enlarged. IMPRESSION: Stable chest since preceding day's examination. LEFT VENTRICULAR WALL MOTION: NORMAL DOPPLER/COLOR FLOW: MILD MITRAL AND TRICUSPID REGURGITATION. MODERATE TO SEVERE PULMONARY HYPERTENSION. ESTIMATED RIGHT VENTRICULAR SYSTOLIC PRESSURE 60 mmHg. COMMENTS: NORMAL LEFT VENTRICULAR EJECTION FRACTION. MITRAL ANNULAR CALCIFICATION. LEFT VENTRICULAR HYPERTROPHY. MODERATE TO SEVERE PULMONARY HYPERTENSION. MILD MITRAL AND TRICUSPID REGURGITATION. Conclusions/Impression: A/ CKD V/ ESRD Acidosis Hypocalcemia DM II with CKD HTN with CKD/ CHF. Diastolic CHF, chronic. Pulmonary HTN. Anemia in CKD. MICHELLE/ Secondary HyperPTH. Moderate Malnutrition. P/ Continue current POC and Medications. HD TIW TTS. Continue Procrit. PRBC as needed. No NSAIDs. AM labs. Daily weight. Dialysis placement at the [facility] [place]. Hepatitis negative.
[2019-08-06] MEDS: GABAPENTIN 300 MG CAP PO SCH (23:11)
[2019-08-06] MEDS: ramipriL 5 MG CAP PO SCH (23:12)
--- NOTE | 2019-08-06 23:26 | CON ---
Reason For Consultation: Consultation called because of diabetic peripheral neuropathy pain. History Of Present Illness: Mr. Ramon is a 49-year-old patient with end-stage renal disease on hemodialysis, history of poorly-controlled diabetes mellitus, hypertension, who has a per itoneal dialysis and is to have surgery to remove current nonworking catheter and replacement. Regar ding his diabetic neuropathy symptoms, patient has had pain, tingling, pins and needles sensations wi th sharp stabbing sensations in his both feet and moving through the legs for several years since his diabetes mellitus was diagnosed more than a dozen years ago. In fact, he said at the time of his di agnosis, his blood sugar could not be registered; and after he was given insulin, it read greater li n 700 and eventually came back down. He had been on gabapentin previously for peripheral neuropathy and did well, but had some somnolence; and as a result, the medication was switched over to Lyrica, b ut he felt it was not working; and since hospitalization, he is now back on gabapentin, but at a low starting dosage and this is the second day of gabapentin. He reports pain may be at times 8/10 to 10 /10 in both lower extremities; and since he early restarted gabapentin, he has not seen significant i mprovement, but again this is only the second day of gabapentin. 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 Past Surgical History: Incision and drainage of abscess in abdomen, bilateral knee repair, peritonea l dialysis catheter placement and replacement. Social History: No recent alcohol, tobacco, or IV drug use. Lives at home with mother. Family History: Positive for hypertension in mother and diabetes in brother. Medications: Sodium bicarbonate 325 mg tablets, he takes 2 of those 4 times daily; Cardura 4 mg twic e daily; Rocaltrol 0.5 mcg daily, Coreg 12.5 mg twice daily, nifedipine 60 mg twice a day, hydralazin e 50 mg 3 times daily. Allergies: MORPHINE. Review of Systems: Patient reports pain as indicated in his feet and some mild arthralgias and myalgias. No new rash. No other dermatological issues. No psychiatric issues and no new focal neurological deficits. Other garza negative on a 10-point systems review. Physical Examination: Vital Signs: Blood pressure 160/78, pulse 71, respiratory rate 16, temperature 97.4, oxygen saturati on 98%. Weight 319 pounds, height 6 feet 1 inch, BMI of 42, which places him at class 3 obesity. General: Mr. Ramon is resting in bed. He is in no significant distress. He does report, however, o ccasional sharp pains in the feet. HEENT: He is normocephalic, atraumatic. His sclerae are anicteric. Oropharynx is moist and pink. Neck: Supple. Chest: Clear. Heart: Regular. Extremities: Trace edema in the lower extremities and mild stasis changes. Neurological: He is alert and oriented to situation, place, and person. Follows commands appropriat sidra. Cranial nerves 2 through 12 showing no focal deficits. Motor examination of the lower extremit ies, no focal deficits. Sensory exam is stocking-glove loss to light touch, pinprick, and temperatur e in arms or legs. Reflexes depressed in upper and lower extremities and symmetric. Coordination in tact in the upper and lower extremities. The patient ambulated with physical therapy. Laboratory Studies: White blood cell count 4.1, hemoglobin 7.1, platelets 211. INR 1.2. Chemistrie s show sodium 141, potassium 4.0, chloride 107, carbon dioxide 28, BUN 52, creatinine 10.2, glucose n ow ranged 86 to 105, calcium 8.3, AST 10, and ALT less than 6 week. C-reactive protein elevated at 3 7.3. His LDL cholesterol 52, HDL cholesterol 34, cholesterol HDL ratio 2.9, TSH 2.43, free T4 of 0.9 1. Beta-natriuretic peptide 20,553. Hepatitis panel is negative. Lower extremity MRI shows no evid ence of osteomyelitis in his right lower extremity. Assessment: Mr. Ramon is a 49-year-old patient with end-stage renal disease on hemodialysis, history of poorly-controlled diabetes mellitus, hypertension. Has diabetic peripheral neuropathy and is no restarted on gabapentin. It is indicated he has multiple comorbid conditions. Plan: We will increase the gabapentin, actually now already increased to 3 mg twice daily. After ar ound 5 days to 7 days, may increase it to 600 mg twice daily depending on patient's pain response. A fter his discharge from hospital, he may follow up in Dr. Blanco's clinic within a month of dischar ge for few additional potential adjustments to gabapentin dosage depending on symptomatic level of pa in control. JIMENA/LILY Voice ID: [id number] Report ID: [id number]
[2019-08-07 04:39] LABS: Absolute Lymphocytes (CBC) 0.5 K/uL (0.7-4.9); Basophils % 1.2 % (0-1.3); Hematocrit 22.8 % (39.6-49.0); Lymphocytes % 14.1 % (15.3-44.8); MPV 7.6 fL (7.6-11.3); RBC Red Blood Cell Count 2.65 M/uL (4.33-5.43)
[2019-08-07] MEDS ORDERED: DOXAZOSIN 2 MG TAB ONE (07:30)
[2019-08-07] MEDS: ISOSORBIDE MONO SR 60 MG TAB PO SCH (08:33)
[2019-08-07] MEDS: CALCITROL 0.25 MCG CAP PO SCH (08:33)
[2019-08-07] MEDS: GABAPENTIN 300 MG CAP PO SCH (08:33)
[2019-08-07] MEDS: SEVELAMER CARBONATE 800 MG TABLET PO SCH ×2 (08:34→14:01)
[2019-08-07] MEDS: HYDRALAZINE HCL 25 MG TABLET PO SCH (08:34)
[2019-08-07] MEDS: VITAMIN D 5,000 UNIT CAP PO SCH (08:34)
[2019-08-07] MEDS: NIFEDIPINE XL 60 MG TABLET PO SCH (08:34)
[2019-08-07] MEDS: FUROSEMIDE 40 MG TABLET PO SCH (08:35)
[2019-08-07] MEDS: AMLODIPINE 10 MG TAB PO SCH (08:35)
[2019-08-07] MEDS: DOXAZOSIN 4 MG TAB PO SCH (08:36)
[2019-08-07] MEDS: SILDENAFIL CITRATE PO SCH (08:37)
[2019-08-07] MEDS ORDERED: DULOXETINE 30 MG CAP PO SCH (09:00)
[2019-08-07 12:29] VITALS: BP 152/81; TEMP 97.7
--- NOTE | 2019-08-07 18:56 | PN ---
Date of Progress Note: 08/07/2019 Subjective: Patient seen and examined. He is complaining of pain in his lower extremities and cramp ing. Objective: Vital Signs: Have been reviewed and are stable. General: He appears in no acute distress. Lungs: Clear to auscultation. Abdomen: Soft and nontender. Extremities: Without any evidence of edema. Laboratory Data: Has been reviewed in detail. Hemoglobin is low at 7.5, hematocrit 22.8. Current Medications: Have been reviewed in detail. Impression: 1.End-stage renal disease, on dialysis, has been started on hemodialysis. 2.Hypertension, improving control. 3.Anemia secondary to end-stage renal disease. 4.Multiple other metabolic problems related to end-stage renal disease. 5.Lower extremity neuropathy, on Gabapentin. Plan: Overall, the patient is doing okay. We will continue to monitor his anemia levels closely as outpatient. He has been counseled extensively on compliance with dialysis. The patient will possibl y need low-dose gabapentin at nighttime prescription tomorrow when he comes to see us on dialysis. Talon nelson to monitor anemia closely and adjust ESAs as needed. Will follow up as outpatient. VV/MODL Voice ID: [id number] Report ID: [id number]
--- NOTE | 2019-08-08 00:29 | DS ---
Date of Discharge: 08/07/2019 Hospital Course: This patient is a 49-year-old male, who presented for shortness of breath and edema. This patient has a history of end- stage renal disease with peritoneal dialysis. He also has a history of uncontrolled hypertension, diastolic CHF, anemia, obesity, and blindness related to retina detachment. Nephrology was consulted and decided hemodialysis. General surgeon was consulted and placed permanent hemodialysis catheter. The patient was noted to have anemia and 1 unit of blood was given along with dialysis. The patient complained of chronic lower extremity pain. Initially, cellulitis was suspected and 1 dose of vancomycin was given. Venous Doppler is negative for DVT. MRI was ordered. There is no evidence of osteomyelitis, but it demonstrated edema. The patient describes the pain as tingling and pinching. Highly suspected neuropathy. We started gabapentin and Cymbalta. The pain is greatly improved thereafter. Overall, patient is doing much better. No shortness of breath. The pain in bilateral leg have been greatly improved. He can be discharged to home with home health. He will follow bag valver. He was arranged for scheduled hemodialysis. He will follow neurologist for neuropathy. Physical Examination: General: On discharge, the patient awake and alert, in no acute distress. Vital Signs: Vitals are stable. HEENT: Normocephalic and atraumatic. PERRLA. EOMI. Neck: Supple. No JVD. Chest: Clear to auscultation. No respiratory distress. No wheezing. Heart: Normal S1, S2. Regular rhythm and rate. Abdomen: Soft, nontender. Bowel sounds present. Extremities: Bilateral 1 to 2+ edema, which is improving. Very gentle tenderness. No redness. Neuro: Patient is awake and alert, oriented x3. Nonfocal. Skin: No rash or eczema. Laboratory Data: WBC 3.7, hemoglobin 7.5, platelet 221. Sodium 141, potassium 4, BUN 52, creatinine 10.2. Discharge Diagnoses: 1. End-stage renal disease with hemodialysis. 2. Anemia due to chronic renal disease. 3. Pulmonary edema, resolved. 4. Peripheral neuropathy. 5. Uncontrolled hypertension. 6. Erectile dysfunction. 7. Blindness related to retina detachment. Discharge Medications: Please see discharge medication list. Discharge Instructions: 1. Please follow bag valver and hemodialysis as scheduled. 2. Please follow neurologist, Dr. Blanco in 2 weeks. 3. Please follow PCP in 1 week. 4. Please call emergency room if having shortness of breath or worsening edema. Discharge Activity: As tolerated. Discharge Diet: Renal diet and low-fat diet. I spent at least 30 minutes to discharge patient including home medication prescription, physical examination, education, and discharge summary. QT/MODL Voice ID: [id number] Report ID: [id number] MANI
== END 2019-08-07 14:20 | disposition home or self-care (01) | DRG 981 ==
LOC: ER 12:22 → ERHOLD 15:30 → 4TH 15:47
PROVIDERS: ADMIT Family Medicine; ATTEND Internal Medicine
PROC: 05H533Z Insertion of Infusion Device into Right Subclavian Vein, Percutaneous Approach (ICD-10-PCS; principal; 2019-07-31 08:00)
PROC: 0WPG03Z Removal of Infusion Device from Peritoneal Cavity, Open Approach (ICD-10-PCS; 2019-08-02)
DX: I13.2 Hypertensive heart and chronic kidney disease with heart failure and with stage 5 chronic kidney disease, or end stage renal disease (principal); N18.6 End stage renal disease; I50.33 Acute on chronic diastolic (congestive) heart failure; E44.0 Moderate protein-calorie malnutrition; E87.2 Acidosis; N25.81 Secondary hyperparathyroidism of renal origin; Z68.41 Body mass index [BMI] 40.0-44.9, adult; N17.9 Acute kidney failure, unspecified; E66.09 Other obesity due to excess calories; D63.8 Anemia in other chronic diseases classified elsewhere; H54.3 Unqualified visual loss, both eyes; E83.51 Hypocalcemia; E11.22 Type 2 diabetes mellitus with diabetic chronic kidney disease; R21 Rash and other nonspecific skin eruption; E11.42 Type 2 diabetes mellitus with diabetic polyneuropathy; Z99.2 Dependence on renal dialysis
CPT/HCPCS: 36415; 36430; 71045; 71046; 73718; 76000; 80048; 80053; 80061; 80076; 82728; 82947; 83735; 83880; 84439; 84443; 84484; 84550; 85014; 85018; 85025; 85610; 85652; 86140; 86317; 86704; 86706; 86803; 86850; 86900; 86901; 87040; 87340; 88300; 90935; 93005; 93306; 93970; 96374; 99285; C1752; J0360; J0690; J1644; J1940; J2250; J2370; J2405; J2704; J3010; J7030; J7040; P9016; Q4081

== ENCOUNTER 2019-08-15 15:26 | Emergency (ER) | payer OTHER ==
--- OUTSIDE RECORDS SUMMARY | 2019-08-15 15:28 | XMS REPORT ---
:1970 [facility] Address [address] [place] [address] Care Team Providers Name Role Phone Unavailable Unavailable Unavailable Problems This patient has no known problems. Allergies, Adverse Reactions, Alerts This patient has no known allergies or adverse reactions. Medications This patient has no known medications. Encounters Start End Encounter Admission Attending Care Care Encounter Date/Time Date/Time Type Type Clinicians Facility Department ID 2018-10-24 2018-10-24 Emergency E [facility] [id number] 07:02:00 07:02:00 2018-09-24 2018-09-24 Outpatient [facility] [id number] 05:19:00 05:19:00
[2019-08-15] MEDS ORDERED: DIAZEPAM 2 MG TABLET ONE (16:04)
[2019-08-15] MEDS ORDERED: FENTANYL CITR 100 MCG/2 ML ONE (16:04)
--- NOTE | 2019-08-15 17:19 | ER ---
Nurse's Notes [facility] Name: Undray White Age: 49 yrs Sex: Male : 1970 Arrival Date: 08/15/2019 Time: 15:28 Bed 23 Private MD: Kiko Culp Diagnosis: Pain in left leg;Pain in right leg Presentation: 08/15 15:30 Presenting complaint: Patient states: i just left dialysis and my legs are having this tw2 shooting pain in my calves its like someone is stabbing me in my legs, it lasts for 10 seconds and then its gone, it also is in my feet some time, it has been going on for 3 weeks, i told dr. rodriguez and he was going to give me pain medicine but i told them i didn't want pain medicine, he also gave me gabapentin but it didn't work, i just took it for a day or 2. Transition of care: patient was not received from another setting of care. Onset of symptoms was August 15, 2019. Risk Assessment: Do you want to hurt yourself or someone else? Patient reports no desire to harm self or others. Initial Sepsis Screen: Does the patient meet any 2 criteria? No. Patient's initial sepsis screen is negative. Does the patient have a suspected source of infection? No. Patient's initial sepsis screen is negative. Care prior to arrival: None. 15:30 Method Of Arrival: Ambulatory tw2 15:30 Acuity: YESENIA 3 tw2 Triage Assessment: 15:32 General: Appears uncomfortable, Behavior is calm, cooperative, appropriate for age. tw2 Pain: Complains of pain in right foot, left foot, right leg and left leg. Historical: - Allergies: 15:35 Morphine (Vomiting); tw2 - PMHx: 15:35 High Cholesterol; PERITONEAL DIALYSIS ; not being done now; stage 5 CKD; Hypertension; tw2 Dialysis; Diabetes - NIDDM; TIA; - PSHx: 15:35 PD cath for peritonial dialysis; tw2 - Immunization history:: Adult Immunizations. - Coronavirus screen:: The patient has NOT traveled to [place] in the past 14 days. - Social history:: Smoking status: . - Ebola Screening: : Patient denies travel to an Ebola-affected area in the 21 days before illness onset. Screenin:10 Abuse screen: Denies threats or abuse. Denies injuries from another. Nutritional mg2 screening: No deficits noted. Tuberculosis screening: No symptoms or risk factors identified. 16:10 Fall Risk None identified. mg2 Assessment: 16:10 General: Appears uncomfortable, Behavior is cooperative, crying. Pain: Complains of mg2 pain in left foot and right foot Pain does not radiate. Pain currently is 10 out of 10 on a pain scale. Quality of pain is described as aching. Neuro: Level of Consciousness is awake, alert, obeys commands, Oriented to person, place, time, situation. Cardiovascular: Capillary refill < 3 seconds Patient's skin is warm and dry. Respiratory: Airway is patent Respiratory effort is even, unlabored, Respiratory pattern is regular, symmetrical. GI: No signs and/or symptoms were reported involving the gastrointestinal system. : No signs and/or symptoms were reported regarding the genitourinary system. EENT: No signs and/or symptoms were reported regarding the EENT system. Derm: Skin is normal. Musculoskeletal: Reports pain in right leg. Vital Signs: 15:33 BP 141 / 76; Pulse 99; Resp 17; Temp 97.7(TE); Pulse Ox 100% on R/A; Weight 133.36 kg; tw2 Height 6 ft. 1 in. (185.42 cm); Pain 10/10; 17:23 BP 143 / 78; Pulse 68; Resp 18; Pulse Ox 98% on R/A; mg2 15:33 Body Mass Index 38.79 (133.36 kg, 185.42 cm) tw2 ED Course: 15:28 Patient arrived in ED. mr 15:28 Kiko Culp DO is Private Physician. mr 15:32 Triage completed. tw2 15:32 Arm band placed on. tw2 15:39 Eileen Kidd FNP-C is [facility]. snw 15:39 Trey Mcconnell MD is Attending Physician. snw 15:41 Fazal Luevano, OG is Primary Nurse. mg2 15:58 Bed in low position. Call light in reach. Side rails up X 1. Warm blanket given. Pillow jp3 given. Verbal reassurance given. Elevated right leg. Pulse ox on. NIBP on. 15:58 Patient maintains SpO2 saturation greater than 95% on room air. jp3 17:15 No provider procedures requiring assistance completed. Patient did not have IV access mg2 during this emergency room visit. 17:18 Kiko Culp DO is Referral Physician. snw 17:22 US LE Arterial Bilateral In Process Unspecified. EDMS Administered Medications: 16:05 Drug: fentaNYL (PF) 50 mcg Route: IM; Site: right deltoid; mg2 17:23 Follow up: Response: No adverse reaction; Marked relief of symptoms mg2 16:05 Drug: Valium 2 mg Route: PO; mg2 17:23 Follow up: Response: No adverse reaction; Marked relief of symptoms mg2 17:55 Drug: [place] 5 mg-325 mg 1 tabs Route: PO; mg2 17:55 Follow up: Response: No adverse reaction; Medication administered at discharge. mg2 Outcome: 17:19 Discharge ordered by MD. snw 17:58 Discharged to home via wheelchair. mg2 17:58 Condition: stable 17:58 Discharge instructions given to patient, Instructed on discharge instructions, follow up and referral plans. medication usage, Demonstrated understanding of instructions, follow-up care, medications, Prescriptions given X 1. 18:03 Patient left the ED. mg2 Signatures: Dispatcher [employer] EDMS Eileen Kidd, [place]-C CERTIFIED OPHTHALMIC ASSISTANT-Csnw Bri Noriega mr Lissette Carpenter RN RN tw2 Fazal Luevano RN RN mg2 Bolivar Castañeda jp3 Corrections: (The following items were deleted from the chart) 17:14 16:30 General: Appears uncomfortable, Behavior is cooperative, crying, mg2 mg2 17:14 16:30 Pain: Complains of pain in left foot and right foot Pain does not radiate. Pain mg2 currently is 10 out of 10 on a pain scale. Quality of pain is described as aching, mg2 17:14 16:30 Neuro: Level of Consciousness is awake, alert, obeys commands, Oriented to mg2 person, place, time, situation, mg2 17:14 16:30 Cardiovascular: Capillary refill < 3 seconds Patient's skin is warm and dry. mg2 mg2 17:14 16:30 Respiratory: Airway is patent Respiratory effort is even, unlabored, Respiratory mg2 pattern is regular, symmetrical, mg2 17:14 16:30 GI: No signs and/or symptoms were reported involving the gastrointestinal system. mg2 mg2 17:14 16:30 : No signs and/or symptoms were reported regarding the genitourinary system. mg2mg2 16:30 EENT: No signs and/or symptoms were reported regarding the EENT system. mg2 mg2 16:30 Derm: Skin is normal, mg2 mg2 16:30 Musculoskeletal: Reports pain in right leg mg2 mg2
--- NOTE | 2019-08-15 17:20 | RAD REPORT ---
EXAM DESCRIPTION: US - Lower Extremity Arterial Bilat - 08/15/2019 5:11 pm CLINICAL HISTORY: PAIN COMPARISON: Lower Extremity Wo dated 08/05/2019 TECHNIQUE: Bilateral lower extremity arterial Doppler examination was performed. Ankle-brachial unruly anyi were not performed. FINDINGS: The right common femoral artery is triphasic. The right superficial femoral artery proximally appears triphasic. The mid and distal right SFA appears biphasic. Left popliteal artery appears biphasic. Ri ght posterior tibial artery is monophasic. No occlusion. Left common femoral artery appears triphasic. Left superficial femoral artery and distal appears biph asic to monophasic. No occlusion is seen. IMPRESSION: A mild pattern moderate distal peripheral vascular disease is present
--- NOTE | 2019-08-15 17:20 | EDPHYS ---
Physician Documentation [facility] Name: Undray White Age: 49 yrs Sex: Male : 1970 Arrival Date: 08/15/2019 Time: 15:28 Bed 23 Private MD: Kiko Culp ED Physician Trey Mcconnell HPI: 08/15 16:00 This 49 yrs old Black Male presents to ER via Ambulatory with complaints of Leg Pain, snw Foot Pain. 16:00 The patient presents with pain, that is acute. The complaints affect the left leg and snw right leg. Context: The problem was sustained dialysis, resulted from an unknown cause, the patient can partially bear weight, the patient is able to ambulate. Onset: The symptoms/episode began/occurred 1 month(s) ago, and became worse today, and became persistent. Associated signs and symptoms: The patient has no apparent associated signs or symptoms. Severity of symptoms: At their worst the symptoms were severe, incapacitating, in the emergency department the symptoms are unchanged. It is unknown whether or not the patient has had similar symptoms in the past. sees Dr. Culp, + dialysis. Historical: - Allergies: 15:35 Morphine (Vomiting); tw2 - PMHx: 15:35 High Cholesterol; PERITONEAL DIALYSIS ; not being done now; stage 5 CKD; Hypertension; tw2 Dialysis; Diabetes - NIDDM; TIA; - PSHx: 15:35 PD cath for peritonial dialysis; tw2 - Immunization history:: Adult Immunizations. - Coronavirus screen:: The patient has NOT traveled to [place] in the past 14 days. - Social history:: Smoking status: . - Ebola Screening: : Patient denies travel to an Ebola-affected area in the 21 days before illness onset. ROS: 15:49 Constitutional: Negative for fever, chills, and weight loss, Eyes: Negative for injury, snw pain, redness, and discharge, ENT: Negative for injury, pain, and discharge, Neck: Negative for injury, pain, and swelling, Cardiovascular: Negative for chest pain, palpitations, and edema, Respiratory: Negative for shortness of breath, cough, wheezing, and pleuritic chest pain, Abdomen/GI: Negative for abdominal pain, nausea, vomiting, diarrhea, and constipation, Back: Negative for injury and pain, : Negative for injury, bleeding, discharge, and swelling, Neuro: Negative for headache, weakness, numbness, tingling, and seizure, Psych: Negative for depression, anxiety, suicide ideation, homicidal ideation, and hallucinations. 15:49 MS/extremity: Positive for pain, of the left leg and right leg. 15:49 Skin: Positive for hypersensitive skin to lower legs. Exam: 15:48 Head/Face: Normocephalic, atraumatic. Eyes: Pupils equal round and reactive to light, snw extra-ocular motions intact. Lids and lashes normal. Conjunctiva and sclera are non-icteric and not injected. Cornea within normal limits. Periorbital areas with no swelling, redness, or edema. ENT: Nares patent. No nasal discharge, no septal abnormalities noted. Tympanic membranes are normal and external auditory canals are clear. Oropharynx with no redness, swelling, or masses, exudates, or evidence of obstruction, uvula midline. Mucous membranes moist. Neck: Trachea midline, no thyromegaly or masses palpated, and no cervical lymphadenopathy. Supple, full range of motion without nuchal rigidity, or vertebral point tenderness. No Meningismus. Chest/axilla: Normal chest wall appearance and motion. Nontender with no deformity. No lesions are appreciated. Cardiovascular: Regular rate and rhythm with a normal S1 and S2. No gallops, murmurs, or rubs. Normal PMI, no JVD. No pulse deficits. Respiratory: Lungs have equal breath sounds bilaterally, clear to auscultation and percussion. No rales, rhonchi or wheezes noted. No increased work of breathing, no retractions or nasal flaring. Abdomen/GI: Soft, non-tender, with normal bowel sounds. No distension or tympany. No guarding or rebound. No evidence of tenderness throughout. Back: No spinal tenderness. No costovertebral tenderness. Full range of motion. Skin: Warm, dry with normal turgor. Normal color with no rashes, no lesions, and no evidence of cellulitis. Neuro: Awake and alert, GCS 15, oriented to person, place, time, and situation. Cranial nerves II-XII grossly intact. Motor strength 5/5 in all extremities. Sensory grossly intact. Cerebellar exam normal. Normal gait. Psych: Awake, alert, with orientation to person, place and time. Behavior, mood, and affect are within normal limits. 15:48 Constitutional: The patient appears alert, awake, restless, uncomfortable. 15:48 Musculoskeletal/extremity: ROM: no acute changes, Circulation is intact in all extremities. the bilateral lower ext Severe pain noted. Vital Signs: 15:33 BP 141 / 76; Pulse 99; Resp 17; Temp 97.7(TE); Pulse Ox 100% on R/A; Weight 133.36 kg; tw2 Height 6 ft. 1 in. (185.42 cm); Pain 10/10; 17:23 BP 143 / 78; Pulse 68; Resp 18; Pulse Ox 98% on R/A; mg2 15:33 Body Mass Index 38.79 (133.36 kg, 185.42 cm) tw2 MDM: 15:39 Patient medically screened. snw 17:20 Data reviewed: vital signs, nurses notes. Data interpreted: Pulse oximetry: on room air snw is 100 %. Interpretation: normal. Counseling: I had a detailed discussion with the patient and/or guardian regarding: the historical points, exam findings, and any diagnostic results supporting the discharge/admit diagnosis, the presence of at least one elevated blood pressure reading (>120/80) during this emergency department visit, radiology results, the need for outpatient follow up, to return to the emergency department if symptoms worsen or persist or if there are any questions or concerns that arise at home. Special discussion: Based on the history and exam findings, there is no indication for further emergent testing or inpatient evaluation. I discussed with the patient/guardian the need to see the primary care provider for further evaluation of the symptoms. 08/15 15:47 Order name: US LE Arterial Bilateral snw 08/15 15:40 Order name: EKG; Complete Time: 15:40 snw 08/15 15:40 Order name: EKG - Nurse/Tech; Complete Time: 17:22 snw Administered Medications: 16:05 Drug: fentaNYL (PF) 50 mcg Route: IM; Site: right deltoid; mg2 17:23 Follow up: Response: No adverse reaction; Marked relief of symptoms mg2 16:05 Drug: Valium 2 mg Route: PO; mg2 17:23 Follow up: Response: No adverse reaction; Marked relief of symptoms mg2 17:55 Drug: [place] 5 mg-325 mg 1 tabs Route: PO; mg2 17:55 Follow up: Response: No adverse reaction; Medication administered at discharge. mg2 Disposition: 08/16 08:48 Co-signature as Attending Physician, Trey Mcconnell MD I agree with the assessment and kdr plan of care. Disposition: 08/15/19 17:19 Discharged to Home. Impression: Pain in left leg, Pain in right leg. - Condition is Stable. - Discharge Instructions: Leg Cramps, Musculoskeletal Pain, Heat Therapy. - Prescriptions for orphenadrine citrate 100 mg Oral Tablet Sustained Release - take 1 tablet by ORAL route 2 times per day As needed; 10 tablet. - Work release form, Medication Reconciliation Form, Thank You Letter, Antibiotic Education, Prescription Opioid Use form. - Follow up: Emergency Department; When: As needed; Reason: Worsening of condition. Follow up: Kiko Culp DO; When: 1 - 2 days; Reason: Recheck today's complaints, Continuance of care, Re-evaluation by your physician. Signatures: Dispatcher [employer] EDID Trey Mcconnell MD MD [facility] Eileen Kidd, MANAGER OF CREATIVE SERVICES-C MANAGER OF CREATIVE SERVICES-Csnw Lissette Carpenter RN RN tw2 Fazal Luevano RN RN mg2 Corrections: (The following items were deleted from the chart) 08/15 18:03 17:19 08/15/2019 17:19 Discharged to Home. Impression: Pain in left leg; Pain in right mg2 leg. Condition is Stable. Forms are Medication Reconciliation Form, Thank You Letter, Antibiotic Education, Prescription Opioid Use. Follow up: Emergency Department; When: As needed; Reason: Worsening of condition. Follow up: Kiko Culp; When: 1 - 2 days; Reason: Recheck today's complaints, Continuance of care, Re-evaluation by your physician. snw
[2019-08-15] MEDS ORDERED: HYDROCODONE/APAP 5/325 MG TAB ONE (17:54)
[2019-08-15 18:08] VITALS: TEMP 97.7
[2019-08-15 18:10] VITALS: BP 143/78; O2SAT 98
--- NOTE | 2019-08-16 07:52 | EKG ---
Test Date: 2019-08-15 Test Time: 17:22:38 Saw Feeder: MEASUREMENT RESULTS: Intervals: Rate: 69 MI: 138 QRSD: 102 QT: 432 QTc: 462 [place]: P: 63 MI: 138 QRS: -32 T: 83 INTERPRETIVE STATEMENTS: Normal sinus rhythm Left axis deviation Nonspecific T wave abnormality Prolonged QT Abnormal ECG Compared to ECG 07/29/2019 13:46:35 Left-axis deviation now present Prolonged QT interval now present T-wave abnormality still present Electronically Signed On 08-16-19 07:51:34 DIRECTOR OF PATIENT CARE by Frank Andrews
== END 2019-08-15 18:03 | disposition home or self-care (01) ==
LOC: ER 15:26
DX: M79.605 Pain in left leg (principal); M79.604 Pain in right leg; I12.0 Hypertensive chronic kidney disease with stage 5 chronic kidney disease or end stage renal disease; E11.22 Type 2 diabetes mellitus with diabetic chronic kidney disease; N18.5 Chronic kidney disease, stage 5; Z99.2 Dependence on renal dialysis; Z88.5 Allergy status to narcotic agent
CPT/HCPCS: 93005; 93925; 96372; 99284; J3010

== ENCOUNTER 2019-09-12 11:56 | Inpatient (IN) | payer OTHER ==
--- OUTSIDE RECORDS SUMMARY | 2019-09-12 11:59 | XMS REPORT ---
:1970 Author Organization [facility] Address [address] [place] [address] Care Team Providers Name Role Phone Unavailable Unavailable Unavailable Problems This patient has no known problems. Allergies, Adverse Reactions, Alerts This patient has no known allergies or adverse reactions. Medications This patient has no known medications. Encounters Start End Encounter Admission Attending Care Care Encounter Date/Time Date/Time Type Type Clinicians Facility Department ID 2018-10-24 2018-10-24 Emergency E [facility] [id number] 07:02:00 07:02:00 2018-09-24 2018-09-24 Outpatient [facility] [id number] 05:19:00 05:19:00
--- NOTE | 2019-09-12 13:19 | EDPHYS ---
Physician Documentation [facility] Name: Undray White Age: 49 yrs Sex: Male : 1970 Arrival Date: 09/12/2019 Time: 11:59 Bed 19 Private MD: ED Physician Darryl Robert HPI: 09/11 13:12 This 49 yrs old Black Male presents to ER via Ambulatory with complaints of SENT FROM [facility]IALYS[facility] TO HAVE PHOSPHATES CHECKED. 13:12 Patient stated that he missed 3 dialysis appointments because he was stranded in [place]. jr8 Went to center to be dialized today and was referred to ED for further evaluation. Currently asymptomatic at this time . Severity of symptoms: At their worst the symptoms were very mild in the emergency department the symptoms are unchanged. It is unknown whether or not the patient has had similar symptoms in the past. The patient has not recently seen a physician. Historical: - Allergies: 12:33 Morphine (Vomiting); wh - PMHx: 12:33 Diabetes - NIDDM; Dialysis; High Cholesterol; Hypertension; PERITONEAL DIALYSIS ; not wh being done now; stage 5 CKD; TIA; - Immunization history:: Adult Immunizations up to date. - Social history:: Smoking status: Patient/guardian denies using. ROS: 13:12 Eyes: Negative for injury, pain, redness, and discharge, ENT: Negative for injury, jr8 pain, and discharge, Neck: Negative for injury, pain, and swelling, Cardiovascular: Negative for chest pain, palpitations, and edema, Respiratory: Negative for shortness of breath, cough, wheezing, and pleuritic chest pain, Abdomen/GI: Negative for abdominal pain, nausea, vomiting, diarrhea, and constipation, Back: Negative for injury and pain, MS/Extremity: Negative for injury and deformity, Skin: Negative for injury, rash, and discoloration, Neuro: Negative for headache, weakness, numbness, tingling, and seizure. Exam: 13:12 Eyes: Pupils equal round and reactive to light, extra-ocular motions intact. Lids and jr8 lashes normal. Conjunctiva and sclera are non-icteric and not injected. Cornea within normal limits. Periorbital areas with no swelling, redness, or edema. ENT: Nares patent. No nasal discharge, no septal abnormalities noted. Tympanic membranes are normal and external auditory canals are clear. Oropharynx with no redness, swelling, or masses, exudates, or evidence of obstruction, uvula midline. Mucous membranes moist. Neck: Trachea midline, no thyromegaly or masses palpated, and no cervical lymphadenopathy. Supple, full range of motion without nuchal rigidity, or vertebral point tenderness. No Meningismus. Cardiovascular: Regular rate and rhythm with a normal S1 and S2. No gallops, murmurs, or rubs. Normal PMI, no JVD. No pulse deficits. Respiratory: Lungs have equal breath sounds bilaterally, clear to auscultation and percussion. No rales, rhonchi or wheezes noted. No increased work of breathing, no retractions or nasal flaring. Abdomen/GI: Soft, non-tender, with normal bowel sounds. No distension or tympany. No guarding or rebound. No evidence of tenderness throughout. Back: No spinal tenderness. No costovertebral tenderness. Full range of motion. Skin: Warm, dry with normal turgor. Normal color with no rashes, no lesions, and no evidence of cellulitis. MS/ Extremity: Pulses equal, no cyanosis. Neurovascular intact. Full, normal range of motion. Neuro: Awake and alert, GCS 15, oriented to person, place, time, and situation. Cranial nerves II-XII grossly intact. Motor strength 5/5 in all extremities. Sensory grossly intact. Cerebellar exam normal. Normal gait. 13:30 ECG was reviewed by the Attending Physician. [facility] Vital Signs: 12:29 BP 219 / 109; Pulse 73; Resp 18; Temp 98.2; Pulse Ox 100% ; Weight 128.82 kg; Height 6 wh ft. 1 in. (185.42 cm); Pain 0/10; 14:00 BP 205 / 106; Pulse 64; Resp 18; Pulse Ox 100% ; wh 15:41 BP 162 / 78; Pulse 95; Resp 18; Pulse Ox 100% on R/A; wh 12:29 Body Mass Index 37.47 (128.82 kg, 185.42 cm) MDM: 12:43 Patient medically screened. [facility] 13:12 Data reviewed: vital signs, nurses notes, lab test result(s), EKG. Data interpreted: 8 Pulse oximetry: on room air is 100 %. Interpretation: normal. Counseling: I had a detailed discussion with the patient and/or guardian regarding: the historical points, exam findings, and any diagnostic results supporting the discharge/admit diagnosis, lab results, the need for further work-up and treatment in the hospital. ED course: Consulted Dr. Culp who is patients business integration analyst. Would like him admitted for obs and to have dialysis here today and again tomorrow if needed. Will call hospitalist for admission . 09/11 13:01 Order name: CBC with Diff; Complete Time: 13:54 8 09/11 13:01 Order name: Basic Metabolic Panel; Complete Time: 13:58 8 09/11 13:01 Order name: LFT's; Complete Time: 13:58 8 09/11 13:07 Order name: Phosphorus; Complete Time: 14:07 8 09/11 13:01 Order name: EKG - Nurse/Tech; Complete Time: 13:21 jr8 09/11 13:01 Order name: EKG; Complete Time: 13:02 8 09/11 13:01 Order name: IV; Complete Time: 13: jr8 EC:30 Rate is 67 beats/min. Rhythm is regular, Sinus Rhythm. Left axis deviation noted. [place] jr8 interval is normal at 146 msec. QRS interval is normal at 100 msec. QT interval is normal at 435 msec. No Q waves. T waves are Flattened in lead III. No ST changes noted. Clinical impression: NSR w/ Non-specific ST/T Changes and No evidence of ischemia. Interpreted by me. Reviewed by me. Administered Medications: 14:09 Drug: D50W 50 ml Route: IVP; Site: right antecubital; 16:13 Follow up: Response: No adverse reaction 14:11 Drug: Insulin Regular Human 10 units {Co-Signature: em (Rex Tafoya RN).} Route: IVP; Site: right antecubital; 16:13 Follow up: Response: No adverse reaction 14:13 Drug: Albuterol 2.5 mg Route: Inhalation; 14:33 Drug: Albuterol 2.5 mg Route: Inhalation; 15:21 Drug: Albuterol 2.5 mg Route: Inhalation; 16:13 Follow up: Response: No adverse reaction Disposition: 18:33 Co-signature as Attending Physician, Darryl Robert MD Signature for administrative ps1 purposes. Did not see or evaluate patient. . Disposition: 09/12/19 13:18 Hospitalization ordered by Porter Raza for Observation. Preliminary diagnosis are Chronic kidney disease, stage 5, Hypertension secondary to other renal disorders. - Bed requested for Telemetry/MedSurg (observation). - Status is Observation. - Condition is Stable. - Problem is new. - Symptoms are unchanged. Signatures: Dispatcher [employer] EDSD Omar Maynard em1 Kayode Goel PA PA jr8 Sunny Adam Darryl Robert MD MD ps1 Rex Tafoya RN em Corrections: (The following items were deleted from the chart) 15:47 13:18 Hospitalization Ordered by Porter Raza MD for Observation. Preliminary diagnosis em1 is Chronic kidney disease, stage 5; Hypertension secondary to other renal disorders. Bed requested for Telemetry/MedSurg (observation). Status is Observation. Condition is Stable. Problem is new. Symptoms are unchanged. jr8 16:22 15:47 09/12/2019 13:18 Hospitalization Ordered by Porter Raza MD for Observation. Preliminary diagnosis is Chronic kidney disease, stage 5; Hypertension secondary to other renal disorders. Bed requested for Telemetry/MedSurg (observation). Status is Observation. Condition is Stable. Problem is new. Symptoms are unchanged. em1
--- NOTE | 2019-09-12 13:19 | ER ---
Nurse's Notes [facility] Name: Undray White Age: 49 yrs Sex: Male : 1970 Arrival Date: 09/12/2019 Time: 11:59 Bed 19 Private MD: Diagnosis: Chronic kidney disease, stage 5;Hypertension secondary to other renal disorders Presentation: 09/11 12:29 Chief complaint: Patient states: he was sent here by [facility] for missing 2 consecutive HD sessions. HD nurse told Pt that his Phosphate might be high and that Pt cant be dialyzed there but instead sent him to ER with HD orders. Pt denies any associated symptoms. Pt blood pressure elevated but states he took all his BP meds prior to getting in ER. Coronavirus screen: The patient has NOT traveled to a country currently being monitored by the [facility] within the last 14 days. Ebola Screen: Patient negative for fever greater than or equal to 101.5 degrees Fahrenheit, and additional compatible Ebola Virus Disease symptoms Patient denies exposure to infectious person. Initial Sepsis Screen: Does the patient meet any 2 criteria? No. Patient's initial sepsis screen is negative. Does the patient have a suspected source of infection? No. Patient's initial sepsis screen is negative. Risk Assessment: Do you want to hurt yourself or someone else? Patient reports no desire to harm self or others. 12:29 Method Of Arrival: Ambulatory 12:29 Acuity: YESENIA 3 12:35 Onset of symptoms was September 12, 2019. Historical: - Allergies: 12:33 Morphine (Vomiting); wh - PMHx: 12:33 Diabetes - NIDDM; Dialysis; High Cholesterol; Hypertension; PERITONEAL DIALYSIS ; not wh being done now; stage 5 CKD; TIA; - Immunization history:: Adult Immunizations up to date. - Social history:: Smoking status: Patient/guardian denies using. Screenin:33 Abuse screen: Denies threats or abuse. Denies injuries from another. Nutritional screening: No deficits noted. Tuberculosis screening: No symptoms or risk factors identified. Fall Risk None identified. Assessment: 12:33 General: Appears in no apparent distress. Behavior is calm, cooperative, appropriate wh for age. Pain: Denies pain. Neuro: Level of Consciousness is awake, alert, obeys commands, Oriented to person, place, time, situation, Appropriate for age. Cardiovascular: Heart tones S1 S2 Dialysis shunt: in the anterior aspect of right upper chest. Respiratory: Airway is patent Respiratory effort is even, unlabored, Respiratory pattern is regular, symmetrical, Breath sounds are clear bilaterally. GI: Abdomen is flat, non-distended. : No signs and/or symptoms were reported regarding the genitourinary system. EENT: No signs and/or symptoms were reported regarding the EENT system. Derm: Skin is intact, is healthy with good turgor, Skin is pink, warm \T\ dry. normal. Musculoskeletal: Circulation, motion, and sensation intact. 14:02 Reassessment: Patient appears in no apparent distress at this time. No changes from previously documented assessment. Patient and/or family updated on plan of care and expected duration. Pain level reassessed. Patient is alert, oriented x 3, equal unlabored respirations, skin warm/dry/pink. 15:15 Reassessment: MD at bedside explaining POC need for admit. 16:09 Reassessment: Patient appears in no apparent distress at this time. No changes from previously documented assessment. Patient and/or family updated on plan of care and expected duration. Pain level reassessed. Patient is alert, oriented x 3, equal unlabored respirations, skin warm/dry/pink. BS rechecked at 69. Pt given juice and sandwich PO. Patient denies pain at this time. Vital Signs: 12:29 BP 219 / 109; Pulse 73; Resp 18; Temp 98.2; Pulse Ox 100% ; Weight 128.82 kg; Height 6 wh ft. 1 in. (185.42 cm); Pain 0/10; 14:00 BP 205 / 106; Pulse 64; Resp 18; Pulse Ox 100% ; wh 15:41 BP 162 / 78; Pulse 95; Resp 18; Pulse Ox 100% on R/A; wh 12:29 Body Mass Index 37.47 (128.82 kg, 185.42 cm) ED Course: 11:59 Patient arrived in ED. fj1 12:23 Sunny Adam is Primary Nurse. wh 12:31 Kayode Goel PA is PHCP. jr8 12:31 Darryl Robert MD is Attending Physician. jr8 12:32 Triage completed. wh 12:35 Arm band placed on right wrist. wh 12:35 Patient has correct armband on for positive identification. Bed in low position. Call light in reach. Side rails up X 1. Pulse ox on. NIBP on. 13:18 Porter Raza MD is Hospitalizing Provider. jr8 13:21 EKG done, by ED staff, reviewed by Kayode OLIVER. Inserted saline lock: 20 gauge in right antecubital area, using aseptic technique. Blood collected. 16:11 No provider procedures requiring assistance completed. Patient admitted, IV remains in place. Administered Medications: 14:09 Drug: D50W 50 ml Route: IVP; Site: right antecubital; 16:13 Follow up: Response: No adverse reaction 14:11 Drug: Insulin Regular Human 10 units {Co-Signature: em (Rex Tafoya RN).} Route: IVP; Site: right antecubital; 16:13 Follow up: Response: No adverse reaction 14:13 Drug: Albuterol 2.5 mg Route: Inhalation; 14:33 Drug: Albuterol 2.5 mg Route: Inhalation; 15:21 Drug: Albuterol 2.5 mg Route: Inhalation; 16:13 Follow up: Response: No adverse reaction Outcome: 13:18 Decision to Hospitalize by Provider. jr8 16:12 Admitted to Med/surg accompanied by tech, via wheelchair, room 229, with chart, Report wh called to Jen Richards RN 16:12 Condition: stable 16:12 Instructed on the need for admit. 16:22 Patient left the ED. Signatures: Kayode Goel PA PA jr8 Sunny Adam Dennis Garland fj1 Rex Tafoya RN em Corrections: (The following items were deleted from the chart) 16:19 16:09 Reassessment: Patient appears in no apparent distress at this time. No changes from previously documented assessment. Patient and/or family updated on plan of care and expected duration. Pain level reassessed. Patient is alert, oriented x 3, equal unlabored respirations, skin warm/dry/pink. Patient denies pain at this time.
[2019-09-12 13:43] LABS: Absolute Lymphocytes (CBC) 0.7 K/uL (0.7-4.9); Basophils % 1.3 % (0-1.3); Hematocrit 31.3 % (39.6-49.0); Lymphocytes % 20.8 % (15.3-44.8); MPV 7.8 fL (7.6-11.3); RBC Red Blood Cell Count 3.74 M/uL (4.33-5.43)
[2019-09-12 13:50] LABS: Albumin 3.3 g/dL (3.4-5.0); Bilirubin Direct 0.1 mg/dL (0-0.2); Bilirubin Total 0.3 mg/dL (0.2-1.0); Protein, Total 7.9 g/dL (6.4-8.2)
[2019-09-12 13:54] LABS: Potassium 6.6 mmol/L (3.5-5.1)
[2019-09-12] MEDS ORDERED: ALBUTEROL 2.5 MG/3 ML NEB SOL ONE (14:10)
[2019-09-12] MEDS ORDERED: D50W 25 GM/50 ML SYRINGE/VIAL IV ONE (14:11)
[2019-09-12] MEDS ORDERED: INSULIN -REGULAR HUMAN 50 UNIT/0.5 ML ML ONE (14:11)
[2019-09-12] MEDS ORDERED: CALCIUM GLUC 10% INJ 4.65 MEQ in NA CHLORIDE 0.9% 100 ML IV ONE (15:00)
[2019-09-12] MEDS ORDERED: NA CHLORIDE 0.9% 1,000 ML IV PRN (16:19)
[2019-09-12] MEDS ORDERED: MANNITOL 25% 12.5 GM/50 ML VIAL IV PRN (16:19)
[2019-09-12] MEDS ORDERED: ACETAMINOPHEN 500 MG TAB PO PRN (16:19)
[2019-09-12] MEDS ORDERED: ONDANSETRON 4 MG/2 ML VIAL IV PRN (16:19)
[2019-09-12] MEDS ORDERED: ALBUMIN HUMAN 25% 50 ML IV SCH (16:19)
[2019-09-12] MEDS: INSULIN -REGULAR HUMAN 50 UNIT/0.5 ML ML SQ SCH ×2 (16:30→21:00)
--- NOTE | 2019-09-12 16:52 | EKG ---
Test Date: 2019-09-12 Test Time: 13:06:05 Ap Processor: SHILA MEASUREMENT RESULTS: Intervals: Rate: 67 PA: 146 QRSD: 100 QT: 412 QTc: 435 [place]: P: 63 PA: 146 QRS: -37 T: 7 INTERPRETIVE STATEMENTS: Normal sinus rhythm Left axis deviation Abnormal ECG Compared to ECG 08/15/2019 17:22:38 T-wave abnormality no longer present Prolonged QT interval no longer present Electronically Signed On 09-12-19 16:51:43 CDT by Abelino Torres
[2019-09-12 17:16] VITALS: BMI 37.4
[2019-09-12] MEDS ORDERED: TRAMADOL HCL 50 MG TAB PO PRN (17:32)
[2019-09-12] MEDS: ENOXAPARIN 30 MG/0.3 ML SQ SCH (17:48)
[2019-09-12] MEDS: SOD POLYSTYREN SUL 15 GM/60 ML UCUP PO SCH ×2 (18:57→22:08)
--- NOTE | 2019-09-12 19:55 | HP ---
Date of Admission: 09/12/2019 Chief Complaint: Missed dialysis, weakness. Consultants: Kiko Culp DO with Nephrology. History Of Present Illness: Patient is a 49-year-old male with past medical history of end-stage kevin al disease, on dialysis, who was recently in [place], was unable to get a ride back and missed 1 week wo rth of dialysis, usually goes Monday, , Monday. His last dialysis was on Monday. Tyree bentley also has a history of hypertension, diastolic heart failure, and anemia. Patient was evaluated in the ER. His workup revealed a potassium of 6.6, phosphorus was 8.2, creatinine was 13.8. Patient o therwise denies any fevers, shortness of breath, cough, or exposure to anybody who is known positive for coronavirus. Patient otherwise doing well other than having some generalized weakness. Patient was therefore admitted to the hospital. In the ER, patient received cocktail to reduce his potassium level including albuterol, dextrose, insulin, and calcium gluconate. Dr. Culp with Nephrology wa s contacted by the ED and myself and plan is for dialysis. 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 Past Surgical History: I and D of head abscess, bilateral knee repair, peritoneal dialysis catheter placement and removal and now with hemodialysis catheter placement. Allergies: MORPHINE CAUSES HIVES AND RASH. Medications: List reviewed. Social History: Patient denies any tobacco use, alcohol use, or illicit drug use. Family History: Mother has hypertension. Brother has diabetes. Review of Systems: Ten-point system reviewed, negative except as per HPI. Physical Examination: Vital Signs: Temperature 98.2, heart rate 73, blood pressure 219/109, respirations 18, O2 100% on ro om air. General: Awake, alert, oriented x3, in some mild distress, obese male, BMI 37.5. HEENT: Normocephalic, atraumatic. PERRLA. EOMI. Moist mucous membranes. Oropharynx is clear. No rmal dentition. Conjunctivae anicteric. Neck: Supple. Trachea midline. CV: S1, S2. Regular rate and rhythm. Peripheral pulses present. Respiratory: Diminished breath sounds. Crackles present. No wheezing or stridor. Gastrointestinal: Abdomen is soft, nontender, nondistended. Positive bowel sounds. No guarding or rigidity. Extremities: No clubbing or cyanosis. Patient has peripheral edema, bilateral lower extremities. N o calf tenderness. Neuro: Cranial nerves 2 through 12 intact grossly. No focal neurological deficit. Speech is normal . Strength is symmetric, bilateral upper and lower extremities. Sensation intact to light touch. Skin: No rashes. Normal skin turgor. Psych: Mood is okay. Affect is full. Insight and judgment are good. Laboratory Data: WBC 3.3, H and H 9.9 and 31.3, platelets 234. Sodium 139, potassium 6.6, chloride 109, CO2 of 21, BUN 86, creatinine 13.8, glucose 92, calcium 8.5, phosphorus 8.2. EKG shows normal sinus rhythm, rate of 67, left axis deviation. Assessment: A 49-year-old male with: 1.Hyperkalemia. Patient received albuterol, dextrose, insulin, and calcium. We will repeat potassi um level after dialysis. Likely secondary to missed dialysis. 2.Hyperphosphatemia secondary to missed dialysis. Patient is being dialyzed now. 3.End-stage renal disease, on hemodialysis. Patient has missed 1 week worth of sessions due to barbara matthew stranded in [place] out of town. Appreciate Dr. Culp's input. We will likely dialyze today and th en again tomorrow. Patient has significant edema. 4.Anasarca secondary to above. 5.Accelerated hypertension. Blood pressure in the 200 systolic, improved, likely secondary to his e nd-stage renal disease and missing dialysis. 6.Obesity, BMI 37.5. Counseled. Plan: DVT prophylaxis with Lovenox. Patient is to receive heparin with dialysis. We will admit amelia ient to Med-Surg, place as inpatient. Length of stay greater than 2 midnights. /LILY Voice ID: [id number]
[2019-09-12] MEDS ORDERED: HOME MED 1 EA UNK (Hydralazine Hcl [Apresoline] 100 MG) PO SCH (21:00)
--- NOTE | 2019-09-12 21:00 | CON ---
Date of Consultation: 09/12/2019 Reason For Service: Malfunction of hemodialysis catheter. History Of Present Illness: This is a case of a 49-year-old patient, who comes to dialysis center to day sent by ER and found to have a broken hemodialysis catheter. He has not receive hemodialysis at least for 3 times. He was out of town with hyperkalemia. When they were going to use the catheter, they noted that catheter cannot be working, because he has broken 1 of the limbs. Surgical consult w as obtained for evaluation and see if something can be done. Patient has been receiving medication f or his high potassium which is coming down and the catheter is going to have to be changed. Allergies: THE PATIENT HAS A SENSITIVITY TO MORPHINE AND GAVE HIM VOMITING. Past Medical History: Diabetes, hemodialysis, hypertension. He does not smoke. He does not drink a lcohol. This patient had history of peritoneal dialysis in the past, but then it was noticed that he was not doing peritoneal dialysis as needed, so he opted for the hemodialysis, although once again h e has done it at least 3 times as he mentioned. Review of Systems: 10 points otherwise unremarkable. Physical Examination: General: Patient is awake and alert. HEENT: Pupils are equal and reactive, anicteric. Neck: Supple. Chest: Clear. Bilateral breath sounds. Renal: On the right hemodialysis area, the catheter looked intact going in, but one of the limb is c ompletely broken and there is a clamp in that area. That clamp was replaced by a formal clamp to luiz id any bleeding or any air going through the catheter. The catheter does not look infected. No crep itus. No bleeding. Apparently when the catheter they found in broken, the patient has no blood in e ither. Abdomen: Soft and depressible. Extremities: Good capillary refill. Laboratory Data: WBC count of 3.3, hemoglobin of 9.9, and potassium of 6.6, and now came down to 5. Assessment: 49-year-old patient, known by the service report since the patient has peritoneal dialys is catheter. Apparently, he was not doing them, then eventually except the hemodialysis catheter, it was done several months ago and apparently he has not done in the last few dialysis. He claimed li t he was in [place] when he came to the ER. The catheter one of the limb is completely transect malfunc tioning. There is a clamp in that area. Patient is fully advised the need of removal of hemodialysi s catheter and placement of a new hemodialysis catheter, may be a HemoSplit, may be a [place], may be in the upper body and may be in the lower body. The benefit, alternatives, and risks of this fully explained to the patient, which include but are not limited to infection, bleeding, damage to adjacen t structures, anesthesia complication, pulmonary emboli, DVT, CO, and even . He also understand s this may not relieve any symptoms. He might need more than one surgical intervention. He was advi sed even though he is eating right now to be after that, not to be anymore, so we can proceed to [facility] his catheter. ASH/LILY Voice ID: [id number] Report ID: [id number]
[2019-09-12] MEDS: DULOXETINE 30 MG CAP PO SCH (21:02)
[2019-09-12] MEDS: HYDRALAZINE HCL 25 MG TABLET PO SCH (21:03)
--- NOTE | 2019-09-12 21:32 | P.CNS ---
Date of Consult: 09/12/19 Reason for Consult: ESRD with hyperkalemia Requesting Physician: Porter Raza Chief Complaint: Hyperkalemia History of Present Illness: 49 yo BM CKD, DM presents to the ER with moderate, persistent hyperkalemia in the setting of multiple missed HD treatments. Reports eating three bananas last night. Brought to the dialysis room for acute dialysis and found to have a broken HD CVC. Dr. Maynard consulted to evaluate the CVC. 13:12 This 49 yrs old Black Male presents to ER via Ambulatory with complaints of SENT FROM [facility] TO HAVE PHOSPHATES CHECKED. 13:12 Patient stated that he missed 3 dialysis appointments because he was stranded in [place]. [id number] Went to center to be dialized today and was referred to ED for further evaluation. Currently asymptomatic at this time . Severity of symptoms: At their worst the symptoms were very mild in the emergency department the symptoms are unchanged. It is unknown whether or not the patient has had similar symptoms in the past. The patient has not recently seen a physician. Allergies morphine Allergy (Mild, Verified 12/03/11 11:32) Hives/Rash Home medications list reviewed: Yes Home Medications: Amlodipine [Norvasc*] 10 mg PO DAILY 09/12/19 Duloxetine HCl 30 mg PO BID 09/12/19 Hydralazine HCl [Apresoline] 100 mg PO TID 09/12/19 Tramadol HCl [Ultram] 50 mg PO Q6HP PRN 09/12/19 ramipriL [Ramipril] 5 mg PO BEDTIME 09/12/19 - Past Medical/Surgical History Diabetic: Yes -: HTN -: End-stage renal disease on hemodialysis -: Blindness related to retinal detachment -: Obesity -: Diastolic CHF -: Anemia of chronic disease -: I&D head abscess -: bilateral knee repair -: Peritoneal dialysis catheter placement -: retinal surgery -: HD catheter placement Psychosocial/ Personal History: Patient lives with his mother - Family History Mother Medical History: Hypertension Brother Medical History: Diabetes - Social History Smoking Status: Unknown if ever smoked Alcohol use: No CD- Drugs: No Caffeine use: No Review of Systems 10-point ROS is otherwise unremarkable General: Weakness, Malaise Respiratory: SOB with Excertion Neurological: Weakness Physical Examination Temp Pulse Resp BP Pulse Ox 97.4 F 84 18 161/74 H 97 09/12/19 20:00 09/12/19 20:00 09/12/19 20:00 09/12/19 20:00 09/12/19 20:00 General: In no apparent distress, Oriented x3, Cooperative HEENT: Atraumatic, Mucous membr. moist/pink Neck: Supple Respiratory: Clear to auscultation bilaterally Cardiovascular: Regular rate/rhythm, Edema Gastrointestinal: Soft and benign, Non-distended Musculoskeletal: No clubbing, No contractures Integumentary: No rashes, No significant lesion Neurological: Normal speech Laboratory Data (last 24 hrs) 09/12/19 13:15: Phosphorus 8.2 H 09/12/19 13:15: Sodium 139, Potassium 6.6 H*, BUN 86 H, Creatinine 13.80 H*, Glucose 92, Total Bilirubin 0.3, AST 12 L, ALT 12, Alkaline Phosphatase 84 09/12/19 13:15: WBC 3.3 L, Hgb 9.9 L, Hct 31.3 L, Plt Count 234 Imagings Data: Normal sinus rhythm Left axis deviation Abnormal ECG Compared to ECG 08/15/2019 17:22:38 T-wave abnormality no longer present Prolonged QT interval no longer present Conclusions/Impression: A/ ESRD on HD. Hyperkalemia. HTN with CKD/ CHF. DM II with CKD. Anemia in CKD. MICHELLE/ Secondary HyperPTH. P/ Continue current POC and Medications. Give Kayexalate X2 tonight. Consult surgery for CVC replacement. Arrange for acute HD. Restart home medications as indicated. Renal diet. No NSAIDs. AM labs. Daily weight. Thank you kindly for the consultation. Case reviewed with Dr. Maynard and Dr. Raza.
[2019-09-13] MEDS: HYDRALAZINE HCL 20 MG/ML VIAL IV PRN ×2 (00:30→07:33)
[2019-09-13 04:52] LABS: Absolute Lymphocytes (CBC) 0.6 K/uL (0.7-4.9); Basophils % 0.8 % (0-1.3); Hematocrit 27.4 % (39.6-49.0); Lymphocytes % 16.1 % (15.3-44.8); MPV 7.7 fL (7.6-11.3); RBC Red Blood Cell Count 3.27 M/uL (4.33-5.43)
[2019-09-13 06:07] LABS: Albumin 2.9 g/dL (3.4-5.0); Bilirubin Total 0.3 mg/dL (0.2-1.0); Magnesium 2.2 mg/dL (1.8-2.4); Potassium 5.3 mmol/L (3.5-5.1); Protein, Total 6.7 g/dL (6.4-8.2)
[2019-09-13] MEDS: INSULIN -REGULAR HUMAN 50 UNIT/0.5 ML ML SQ SCH ×4 (07:30→20:51)
[2019-09-13 07:45] LABS: Phosphorus 8.3 mg/dL (2.5-4.9)
[2019-09-13] MEDS: AMLODIPINE 10 MG TAB PO SCH ×2 (08:41→18:29)
[2019-09-13] MEDS: HYDRALAZINE HCL 25 MG TABLET PO SCH ×3 (08:41→20:50)
[2019-09-13] MEDS: DULOXETINE 30 MG CAP PO SCH ×2 (08:41→20:49)
[2019-09-13] MEDS: ENOXAPARIN 30 MG/0.3 ML SQ SCH (08:41)
[2019-09-13] MEDS ORDERED: METHYLPREDNISOLONE 40 MG INJ IV ONE (08:54)
[2019-09-13] MEDS ORDERED: DIPHENHYDRAMINE 50 MG/ML VIAL IV PRN (08:54)
[2019-09-13] MEDS ORDERED: NA CHLORIDE 0.9% 500 ML ONE (09:31)
[2019-09-13] MEDS ORDERED: CEFAZOLIN SODIUM 1 GM/VIAL ONE (09:53)
[2019-09-13 10:12] LABS: Barbiturates NEGATIVE (NEGATIVE); Benzodiazepines NEGATIVE (NEGATIVE); Cocaine NEGATIVE (NEGATIVE); METHAMPHETAM NEGATIVE (NEGATIVE); Methadone NEGATIVE (NEGATIVE); Opiates NEGATIVE (NEGATIVE); Phencyclidine NEGATIVE (NEGATIVE); THC Cannibis NEGATIVE (NEGATIVE)
[2019-09-13] MEDS ORDERED: D50W 25 GM/50 ML SYRINGE/VIAL IV ONE (10:19)
[2019-09-13] MEDS ORDERED: NS 0.9% VIAL 10 ML ONE ×2 (10:28→11:16)
[2019-09-13] MEDS ORDERED: HEPARIN 5000 UNIT/ML 1 ML VIAL ONE ×2 (10:29→10:36)
[2019-09-13] MEDS ORDERED: FENTANYL CITR 100 MCG/2 ML ONE (10:35)
[2019-09-13] MEDS ORDERED: propofoL 200 MG/20 ML VIAL IV ONE (10:35)
[2019-09-13] MEDS ORDERED: LIDOCAINE 1% MPF 5 ML VIAL ONE (10:35)
[2019-09-13] MEDS ORDERED: MIDAZOLAM HCL 2 MG/2 ML INJ ONE (10:35)
[2019-09-13] MEDS ORDERED: NA CHLORIDE 0.9% 100 ML IV ONE (10:37)
[2019-09-13] MEDS ORDERED: HYDRALAZINE HCL 20 MG/ML VIAL ONE (11:33)
[2019-09-13] MEDS: LIDOCAINE 1% MPF 30 ML VIAL ONE ×2 (11:39→12:01)
[2019-09-13] MEDS ORDERED: HYDROCORTISONE 0.5% CREAM 30 GM TOP PRN (11:42)
--- NOTE | 2019-09-13 12:16 | RAD REPORT ---
EXAM DESCRIPTION: RAD - Fluoroscopy <1 Hour - 09/13/2019 12:09 pm CLINICAL HISTORY: Venous catheter insertion. DIALYSIS CATH PLACEMENT COMPARISON: Fluoroscopy <1 Hour dated 07/31/2019 FINDINGS: Fluoroscopic imaging is submitted from placement of a venous catheter. Details of the pro cedure not available. Fluoroscopy time: 0.5 minutes
[2019-09-13] MEDS ORDERED: DIPHENHYDRAMINE 50 MG/ML VIAL ONE (12:26)
--- NOTE | 2019-09-13 12:38 | P.BOP ---
Preoperative diagnosis: Renal failure, catheter malfunction Postoperative diagnosis: same Primary procedure: 1. Placement of Hemoplit cuffed hemodialysis catheter Secondary procedure: 2. REmoval of non functional hemodialysis catheter Other procedure(s): 3. Interpretation of fluoroscopy Estimated blood loss: <10cc Specimen: Hemosplit prox/distal Anesthesia: General Complications: None Implants: hemosplit Transferred to: Recovery Room Condition: Good
[2019-09-13] MEDS: MEPERIDINE HCL 50 MG/ML ONE ×2 (13:04→14:00)
[2019-09-13] MEDS ORDERED: ONDANSETRON 4 MG/2 ML VIAL ONE (13:06)
--- NOTE | 2019-09-13 13:17 | PN ---
Date of Progress Note: 09/13/2019 Subjective: Patient seen and examined, chart reviewed, and case discussed with RN. Patient going fo r dialysis catheter replacement this morning. No acute events overnight. Patient does report some b umps on his forehead extending down to the neck and back, states they are itchy, has been going on fo r a month. Medications: List reviewed. Physical Examination: Vital Signs: Temperature 99.1, heart rate 79, blood pressure 180/80, respirations 16, O2 97% on room air. General: Awake, alert, oriented x3, not in any acute distress. Obese male, BMI 37. CV: S1, S2. Regular rate and rhythm. Peripheral pulses present. Respiratory: Moving air well at the apices. Diminished breath sounds at the bases. No wheezing or stridor. Gastrointestinal: Abdomen is soft, nontender, nondistended. Positive bowel sounds. Extremities: No clubbing or cyanosis. Patient has peripheral edema. Neurologic: Nonfocal. Laboratory Data: Sodium 142, potassium 5.3, chloride 112, CO2 of 19, BUN 92, creatinine 14, glucose 71, calcium 8.1, phosphorus 8.3, magnesium 2.2, albumin 2.9. WBC 4, H and H 8.9 and 27.4, platelets 207, neutrophils 70%. Wound culture pending. Assessment: A 49-year-old male with: 1.Hyperkalemia, improved initially, and level is back up to 5.3. Anticipate dialysis today after ca theter has been replaced. 2.Hyperphosphatemia secondary to missed dialysis. 3.End-stage renal disease, on hemodialysis. Patient's dialysis catheter is dysfunctional and will b e replaced by Dr. Maynard today. Appreciate Dr. Culp's input. 4.Anasarca secondary to above. 5.Accelerated hypertension, improved. We will likely see more improvement with dialysis. Continue with home medications as appropriate. 6.Obesity, BMI 37.5. 7.Deep vein thrombosis prophylaxis. Lovenox. 8.Possible allergic reaction. Patient has some itching on his forehead and his neck, ongoing for se veral months. We will start on Benadryl p.r.n. and give 40 mg of Solu-Medrol x1. Plan: Discharge once medically stable. Will likely get dialyzed today and tomorrow. SA/MODL Voice ID: [id number] Report ID: [id number]
--- NOTE | 2019-09-13 13:43 | RAD REPORT ---
EXAM DESCRIPTION: RAD - Chest Single View - 09/13/2019 1:05 pm CLINICAL HISTORY: POST HD CATH INSERTION COMPARISON: July 31, 2019 TECHNIQUE: AP portable chest image was obtained 09/13/2019 1:05 pm . FINDINGS: Right-sided hemodialysis catheter is in place. Long and short arm of the catheter is in th e superior aspect of the SVC. No pneumothorax. No new or progressive lung parenchymal finding. Cardiomegaly remains. IMPRESSION: Right-sided hemodialysis catheter has been placed. Long and short arm of the catheter ar e in the superior aspect of the SVC. No pneumothorax.
[2019-09-13] MEDS ORDERED: TRAMADOL HCL 50 MG TAB PO PRN (15:10)
--- NOTE | 2019-09-13 16:26 | OP ---
Date of Procedure: 09/13/2019 Surgeon: John Maynard MD Preoperative Diagnosis: Renal failure and malfunction of the right Port-A-Cath. Postoperative Diagnosis: Renal failure and malfunction of the right Port-A-Cath. Procedures: 1.Placement of a hemodialysis cuffed catheter on the right jugular vein. 2.Interpretation of intraoperative fluoroscopy. 3.Removal of malfunction right HemoSplit. Anesthesia: Sedation plus local. Indications: This is the case of a 49-year-old patient with history of renal failure. He has not re ceived dialysis for the last few events. He said he was out of town, came to the dialysis center, th e nurse opened the dressings and noticed the catheter to be broken and malfunctioning. Immediately c lamps were placed in that area and then we have to replace this and remove this catheter. The benefi ts, alternatives, and risks of removal of a hemodialysis catheter and placement of a HemoSplit hemodi alysis catheter fully explained to the patient, which include but are not limited to infection, bleed ing, damage to adjacent structures, anesthesia complications, hemothorax, pneumothorax, DVTs, breakin g of the catheter, pericarditis, endocarditis, pneumothorax, [place], and even . He also understands this may not relieve any symptoms. He might need more than one surgical intervention. He was also explained the importance of being compliance with hemodialysis, not doing so may compromise his life, especially when he has missed several of his last hemodialysis appointments. He signed a consent. The primary doctor admitted him overnight trying to improve his condition the best they can and they asked me to had this catheter done in need of hemodialysis. Description Of Procedure: Patient was brought to the operating room, placed in supine position. Ane sthesia was done without complication. Chest area was prepped and draped in sterile fashion. We mad e an incision in the right upper chest. Finally, the previous catheter area seemed to be clean. We were trying to protect the rest of the catheter, from the surgical field. Under fluoroscop y, we put a guidewire over the catheter into the jugular vein. Previous catheters were removed intac t. The proximal and distal portion were sent to the Pathology for identification. The previous cath eters were removed. Then, we tried to tunnel this through a different incision. So, we put a new ca theter. First, we made an incision away from the previous one, tunneled this catheter underneath the skin to meet the incision in the right neck region. We proceeded to place introducer catheter throu gh the guidewire being guided by the fluoroscopy. The guidewire was removed. The catheter was place d then. An introducer sheath was peeled off. Once we finished, the catheter has excellent backflow and inflow. This was done under fluoroscopy guidance. The catheter was secured in place with 3-0 ny luz. The subcutaneous tissue closed with 3-0 chromic. Wound from the previous catheter was covered with iodine ointment. Then, the area was covered with sterile dressings. Patient tolerated the proc edure well. Previously, we injected local anesthetic and also we flushed the catheter with hepariniz ed saline. Patient tolerated the procedure well. Excellent backflow and inflow. Patient will be se nt to recovery room and a chest x-ray will be ordered stat. ASH/LILY Voice ID: [id number] Report ID: [id number]
[2019-09-13] MEDS: CIPROFLOXACIN HCL 500 MG TAB PO SCH (20:50)
--- NOTE | 2019-09-13 21:12 | P.PN ---
Date of Service: 09/13/19 Vital Signs Temp Pulse Resp BP Pulse Ox 97.9 F 70 18 191/84 H 94 09/13/19 20:00 09/13/19 20:00 09/13/19 20:00 09/13/19 20:00 09/13/19 20:00 Medications Acetaminophen (Tylenol -Extra Strength) 500 mg PO Q4HP PRN PRN Reason: Pain scale 2-4 (Mild) Stop: 10/12/19 16:20 Amlodipine Besylate (Norvasc) 10 mg PO DAILY [facility] Stop: 10/13/19 09:01 Last Admin: 09/13/19 18:29 Dose: 10 mg Ciprofloxacin (Cipro) 500 mg PO BID [facility]; Protocol Stop: 10/13/19 21:01 Last Admin: 09/13/19 20:50 Dose: 500 mg Diphenhydramine HCl (Benadryl Inj) 25 mg IV Q6H PRN PRN Reason: ITCHING Stop: 10/13/19 08:55 Last Admin: 09/13/19 09:19 Dose: 25 mg Duloxetine HCl (Cymbalta Delayed Release Pellets) 30 mg PO BID [facility] Stop: 10/12/19 21:01 Last Admin: 09/13/19 20:49 Dose: 30 mg Heparin Sodium (Porcine) (Heparin 1,000 Units/Ml) 6,000 unit IV EVERY HD PRN PRN Reason: FLUSH AFTER EACH USE Last Admin: 09/13/19 11:55 Dose: 6,000 unit Heparin Sodium (Porcine) (Heparin 1,000 Units/Ml) 5,000 unit IV EVERY HD [facility] Stop: 09/15/19 16:20 Hydralazine HCl (Apresoline) 10 mg IV Q4HP PRN PRN Reason: FOR SBP>160 OR DBP>100 MMHG Stop: 10/12/19 17:06 Last Admin: 09/13/19 07:33 Dose: 10 mg Hydralazine HCl (Apresoline) 100 mg PO TID [facility] Stop: 10/12/19 21:01 Last Admin: 09/13/19 20:50 Dose: 100 mg Hydrocortisone Acetate (Hydrocortisone 0.5% Cream) 1 appl TOP TID PRN PRN Reason: ITCHING Stop: 10/13/19 11:43 Albumin Human (Albumin 25%) 50 mls @ 100 mls/hr IV EVERY HD [facility] Stop: 10/12/19 16:20 Insulin Human Regular (Novolin -R) 0 unit SQ ACHS CHETAN; Protocol Stop: 10/12/19 16:31 Last Admin: 09/13/19 20:51 Dose: Not Given Mannitol (Mannitol 12.5 Gm/50 Ml Vial) 12.5 gm IV EVERY HD PRN PRN Reason: BP SUPPORT AT HD Stop: 10/12/19 16:20 Ondansetron HCl (Zofran) 4 mg IV Q4H PRN PRN Reason: NAUSEA / VOMITING Stop: 10/12/19 16:20 Sodium Chloride (Normal Saline Flush) 10 ml IV BID CHETAN Stop: 10/12/19 21:01 Last Admin: 09/13/19 20:50 Dose: 10 ml Tramadol HCl (Ultram) 50 mg PO Q8H PRN PRN Reason: Pain scale 5-7 (Moderate) Stop: 10/13/19 15:11 Last Admin: 09/13/19 15:36 Dose: 50 mg Assessment/ Plan: Nephrology CPS stable without CP or SOB. Feeling better today with dialysis. Had his CVC exchanged yesterday. No acute events overnight. Vitals, medications, blood work and imaging reviewed in the chart. General: In no apparent distress, Oriented x3, Cooperative HEENT: Atraumatic, Mucous membr. moist/pink Neck: Supple Respiratory: Clear to auscultation bilaterally Cardiovascular: Regular rate/rhythm, Edema Gastrointestinal: Soft and benign, Non-distended Musculoskeletal: No clubbing, No contractures Integumentary: No rashes, No significant lesion Neurological: Normal speech Laboratory Data (last 24 hrs) 09/12/19 13:15: Phosphorus 8.2 H 09/12/19 13:15: Sodium 139, Potassium 6.6 H*, BUN 86 H, Creatinine 13.80 H*, Glucose 92, Total Bilirubin 0.3, AST 12 L, ALT 12, Alkaline Phosphatase 84 09/12/19 13:15: WBC 3.3 L, Hgb 9.9 L, Hct 31.3 L, Plt Count 234 Imagings Data: Normal sinus rhythm Left axis deviation Abnormal ECG Compared to ECG 08/15/2019 17:22:38 T-wave abnormality no longer present Prolonged QT interval no longer present Conclusions/Impression: A/ ESRD on HD. Hyperkalemia. HTN with CKD/ CHF. DM II with CKD. Anemia in CKD. MICHELLE/ Secondary HyperPTH. P/ Continue current POC and Medications. Seen and examined on HD today. HD as ordered. Next HD in the AM. Counseled regarding compliance with dialysis and diet. Renal diet. No NSAIDs. AM labs. Daily weight.
[2019-09-13] MEDS ORDERED: LACTULOSE 20 GM/30 ML UCUP PO PRN (22:19)
[2019-09-13] MEDS: ramipriL 5 MG CAP PO SCH (22:35)
[2019-09-13] MEDS: DOCUSATE NA 100 MG CAP PO SCH (23:24)
[2019-09-14] MEDS: HYDRALAZINE HCL 20 MG/ML VIAL IV PRN ×2 (01:12→14:11)
[2019-09-14 06:26] LABS: Absolute Lymphocytes (CBC) 0.7 K/uL (0.7-4.9); Basophils % 0.7 % (0-1.3); Hematocrit 29.4 % (39.6-49.0); Lymphocytes % 20.9 % (15.3-44.8); MPV 8.4 fL (7.6-11.3); RBC Red Blood Cell Count 3.54 M/uL (4.33-5.43)
[2019-09-14 06:45] LABS: Albumin 2.8 g/dL (3.4-5.0); Bilirubin Total 0.3 mg/dL (0.2-1.0); Potassium 4.6 mmol/L (3.5-5.1); Protein, Total 6.9 g/dL (6.4-8.2)
[2019-09-14] MEDS: INSULIN -REGULAR HUMAN 50 UNIT/0.5 ML ML SQ SCH ×2 (07:30→11:30)
[2019-09-14 08:19] VITALS: O2SAT 97
[2019-09-14] MEDS: DULOXETINE 30 MG CAP PO SCH (08:26)
[2019-09-14] MEDS: CIPROFLOXACIN HCL 500 MG TAB PO SCH (08:26)
[2019-09-14] MEDS: DOCUSATE NA 100 MG CAP PO SCH (08:27)
[2019-09-14] MEDS: ramipriL 5 MG CAP PO SCH ×2 (08:29→12:28)
[2019-09-14] MEDS: HYDRALAZINE HCL 25 MG TABLET PO SCH ×3 (08:29→13:56)
[2019-09-14] MEDS: AMLODIPINE 10 MG TAB PO SCH ×2 (08:30→12:29)
--- NOTE | 2019-09-14 14:03 | PN ---
Date of Progress Note: 09/14/2019 Subjective: Patient is seen and examined during dialysis. He seems to be tolerating the dialysis tr eatment well. Catheter seems to be working okay. Objective: Vital Signs: Showing a blood pressure in the 170s to 180s. General: He appears in no acute distress. HEENT: Atraumatic head. Lungs: Clear to auscultation. Abdomen: Soft. Extremities: Without any evidence of edema. Laboratory Data: Has been reviewed in detail. CBC and BMP have been consistent with ESRD. Current Medications: Have been reviewed in detail. Impression: 1.End-stage renal disease, on dialysis. 2.Hypertension, uncontrolled secondary to mostly noncompliance with medications. Medications have b een reconciled and he is receiving all antihypertensives at this time. 3.Anemia secondary to end-stage renal disease. 4.Secondary hyperparathyroidism from end-stage renal disease. Plan: Patient is overall doing okay. He has been counseled on compliance with dialysis and the risk of from missing dialysis. The patient is able to tolerate dialysis treatment well and cathete r also seems to be working okay. He can be discharged on current medication regimen and can be followed up as outpatient for his outpatient routine dialysis. VV/MODL Voice ID: [id number] Report ID: [id number]
[2019-09-14 15:43] VITALS: TEMP 98
[2019-09-14 15:45] VITALS: BP 148/79
--- NOTE | 2019-09-14 21:15 | DS ---
Date of Discharge: 09/14/2019 Consultants: 1.Dr. Culp and Dr. Esteban with Nephrology. 2.Dr. Maynard with General Surgery. Procedures: On 09/13/2019, placement of hemodialysis cuffed catheter on the right jugular vein. Admitting Diagnoses: 1.Hyperkalemia. 2.Hyperphosphatemia. 3.End-stage renal disease, on hemodialysis. 4.Anasarca secondary to missed dialysis. 5.Accelerated hypertension. 6.Obesity. Body mass index of 37.5. Discharge Diagnoses: 1.Hyperkalemia, corrected. 2.Hyperphosphatemia, corrected. 3.End-stage renal disease, on hemodialysis. 4.Anasarca, improved. 5.Accelerated hypertension, improved. 6.Obesity, body mass index 37.5. 7.Maculopapular rash, possible allergic reaction, chronic, ongoing for several months. Continue mart atment with topical hydrocortisone cream. Hospital Course: Patient is a 49-year-old male with past medical history of end-stage renal disease, on hemodialysis, who missed 1 week of previous session, comes in with anasarca. Patient's catheter was damaged and malfunctioning. This was removed and Dr. Maynard placed a new catheter in the vein in the jugular as described above. Patient had improvement of his anasarca as well as his accelerate d hypertension with dialysis. Dr. Culp, patient's hospital aides and assistants teacher, was consulted. Patient did have elevated potassium upon arrival at 6.6. He was given hyperkalemia cocktail. His phosphate was eleva manuel at 8.2. Creatinine was 13.8. Patient did well over the course of the hospital stay. He was nestor lyzed back to back. His catheter was sent for culture, so far growing skin manju. Patient is unable to explain how his hemodialysis catheter was malfunctioned. Patient was then cleared for discharge and was sent home in a stable condition. Activity: As tolerated. Medications: As per medication reconciliation list. Followup: 1.Follow up with primary care physician in 2-3 days. 2.Follow up with hospital aides and assistants teacher, Dr. Culp in 2 weeks. 3.Return to ER for worsening condition. Diet: Renal. Physical Examination: General: Awake, alert, oriented x3. No acute distress. Obese male. BMI 37.5. CV: S1, S2. Respiratory: Moving air well bilaterally. Abdomen: Soft, nontender, nondistended. Positive bowel sounds. Extremities: No clubbing or cyanosis. Patient has peripheral edema. Neurologic: Nonfocal. Total time spent discharging patient was 36 minutes. /LILY Voice ID: [id number] Report ID: [id number]
[2019-09-16 01:56] LABS: HBsAG Nonreactive (Nonreactive)
== END 2019-09-14 15:31 | disposition home or self-care (01) | DRG 640 ==
LOC: ER 11:56 → ERHOLD 14:14 → 2ND 16:08
PROVIDERS: ADMIT Family Medicine; ATTEND Family Medicine
PROC: 02HV33Z Insertion of Infusion Device into Superior Vena Cava, Percutaneous Approach (ICD-10-PCS; 2019-09-13)
PROC: 05PY33Z Removal of Infusion Device from Upper Vein, Percutaneous Approach (ICD-10-PCS; 2019-09-13)
PROC: B5181ZA Fluoroscopy of Superior Vena Cava using Low Osmolar Contrast, Guidance (ICD-10-PCS; 2019-09-13)
PROC: 0JH60XZ Insertion of Tunneled Vascular Access Device into Chest Subcutaneous Tissue and Fascia, Open Approach (ICD-10-PCS; principal; 2019-09-13 13:45)
PROC: 5A1D70Z Performance of Urinary Filtration, Intermittent, Less than 6 Hours Per Day (ICD-10-PCS; 2019-09-14)
DX: E87.5 Hyperkalemia (principal); N18.6 End stage renal disease; T82.41XA Breakdown (mechanical) of vascular dialysis catheter, initial encounter; I13.2 Hypertensive heart and chronic kidney disease with heart failure and with stage 5 chronic kidney disease, or end stage renal disease; I50.32 Chronic diastolic (congestive) heart failure; N25.81 Secondary hyperparathyroidism of renal origin; E11.22 Type 2 diabetes mellitus with diabetic chronic kidney disease; Z99.2 Dependence on renal dialysis; H54.7 Unspecified visual loss; E66.9 Obesity, unspecified; Z68.37 Body mass index [BMI] 37.0-37.9, adult; E83.39 Other disorders of phosphorus metabolism; Z79.899 Other long term (current) drug therapy; Z91.15 Patient's noncompliance with renal dialysis; D63.1 Anemia in chronic kidney disease; T78.40XA Allergy, unspecified, initial encounter; R21 Rash and other nonspecific skin eruption; T49.0X5A Adverse effect of local antifungal, anti-infective and anti-inflammatory drugs, initial encounter; Z91.14 Patient's other noncompliance with medication regimen; Z86.73 Personal history of transient ischemic attack (TIA), and cerebral infarction without residual deficits; Z88.5 Allergy status to narcotic agent
CPT/HCPCS: 36415; 71045; 76000; 80048; 80053; 80076; 80307; 82947; 83735; 84100; 84132; 85025; 86317; 87070; 87205; 87340; 88300; 90935; 93005; 94760; 96374; 96375; 99285; C1752; J0360; J0610; J0690; J1200; J1644; J1650; J2175; J2250; J2405; J2704; J2920; J3010; J7040

== ENCOUNTER 2021-01-28 12:13 | Emergency (ER) | payer OTHER ==
--- OUTSIDE RECORDS SUMMARY | 2021-01-28 12:19 | XMS REPORT | Continuity of Care Document ---
:1970 Author Organization [facility] t Address [address] [place] [address] Care Team Providers Name Role Phone Asked, Pcp Primary Care Physician Unavailable Caden JAMESON Attending Clinician Unavailable Lane MELO, Lane-i Attending Clinician Rosamaria Castillo RN Attending Clinician Justice FOLEY Attending Clinician Unavailable Radames JAMESON Attending Clinician Unavailable Heydi Wahl Attending Clinician Theresa Brasher Attending Clinician Nawaf Ornelas Attending Clinician Imer Castro Admitting Clinician Payers Payer Name Policy Type Policy Effective Date Expiration Date Sour ce Number MEDICAREMEDICARE PART [id number] 2019 De manuel Rubio AND 00:00:00 [facility] [id number] 2018- [place], [place] Condition Condition Condition Status Onset Resolution Last Treating Co mments Source Name Details Category Date Date Treatment Clinician Date SENT BY Diagnosis Active 2018-10-24 Memoria / DIALYSIS 10-24 11:05:00 l SENT BY 00:00: Pineda DR / 00 DIALYSIS Active 10/24/2018 [facility] CHRONIC Diagnosis Active 2018-10-02 Me moria KIDNEY 3-14 14:46:00 l DISEASE, CHRONIC 00:00: Aurelia nn STAGE 5 KIDNEY 00 DISEASE, STAGE 5 Active 09/06/2018 [facility] HYPERKALEM Diagnosis Active 2018-03-27 Memoria IA 03-21 09:26:00 l 00:00: Interior HYPERKALEM 00 IA Active [address] [facility] [address] Diagnosis Active 2018-03-21 Mem oria REFERRAL 03-21 22:20:00 l 00:00: Pineda REFERRAL 00 Active 03/21/2018 [facility] Acidosis Problem 2018-10-15 Mem oria 12:46:18 l Acidosis William n 10/15/2018 [facility] Chronic Problem 2018-10-15 Manjinder tammy kidney 12:46:18 l disease, Chronic Aurelia nn stage 5 kidney disease, stage 5 10/15/2018 [facility] Hypertensi Problem 2018-10-15 M emoria ve chronic 12:46:18 l kidney Interior disease Hypertensi with stage ve chronic 5 chronic kidney kidney disease disease or with stage end stage 5 chronic renal kidney disease disease or end stage renal disease 10/15/2018 [facility] 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 disease 10/15/2018 [facility] Personal Problem 2018-10-15 Mem oria history of 12:46:18 l transient Personal Her oliva ischemic history of attack transient (TIA), and ischemic cerebral attack infarction (TIA), and without cerebral residual infarction deficits without residual deficits 10/15/2018 [facility] Hyperkalem Problem 2018-10-15 M emoria ia 12:46:18 l Pineda Hyperkalem ia 10/15/2018 [facility] Anemia in Problem 2018-10-15 Me moria chronic 12:46:18 l kidney Anemia Interior disease in chronic kidney disease 10/15/2018 [facility] 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 l use of Long Pineda oral term hypoglycem (current) ic drugs use of oral hypoglycem ic drugs 10/15/2018 [facility] Hypomagnes Problem 2018-10-15 M emoria emia 12:46:18 l Pineda Hypomagnes emia 9 [facility] Morbid Problem 2018-10-15 Memor ia (severe) 12:46:18 l obesity Morbid Interior due to (severe) excess obesity calories due to excess calories 10/15/2018 [facility] Hypertroph Problem 2018-10-15 M emoria ic scar 12:46:18 l Pineda Hypertroph ic scar 10/15/2018 [facility] Other Problem 2018-10-15 Memor ia disorders 12:46:18 l of Other Interior phosphorus disorders metabolism of phosphorus metabolism 10/15/2018 [facility] 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:46:18 l mellitus Type 2 William n with diabetes unspecifie mellitus d diabetic with retinopath unspecifie y without d diabetic macular retinopath edema y without macular edema 10/15/2018 [facility] 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:46:18 l 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 10/15/2018 [facility] Hyperlipid Problem 2018-10-15 M emoria emia, 12:46:18 l unspecifie William n d Hyperlipid emia, unspecifie d 10/15/2018 [facility] Transient Problem Resolve 2018-10-27 M emoria ischemic d 00:00:48 l attack Pineda (disorder) Transient ischemic attack (disorder) Resolved Problem 10/27/2018 [facility] Diabetes Problem Active 2018-10-27 Mem oria mellitus 00:00:48 l (disorder) Diabetes He rmann mellitus (disorder) Active Problem 10/27/2018 not taking meds-taken off meds b/c of "kidney disease" [facility] End stage Problem Active 2018-10-27 Me moria renal 00:00:48 l disease End Pineda (disorder) stage renal disease (disorder) Active Problem 10/27/2018 [facility] Hypertensi Problem Active 2018-10-27 M emoria ve 00:00:48 l disorder, Interior systemic Hypertensi arterial ve (disorder) disorder, systemic arterial (disorder) Active Problem 10/27/2018 [facility] Osteoarthr Problem Active 2018-10-27 M emoria itis 00:00:48 l (disorder) William n Osteoarthr itis (disorder) Active Problem 10/27/2018 [facility] Acute Problem 2018-10-15 Memor ia kidney 12:46:18 l failure Acute Pineda with 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 10/15/2018 [facility] History of Past Illness Condition Condition Condition Status Onset Resolution Last Treating Co mments Source Name Details Category Date Date Treatment Clinician Date End stage Problem 2018-10-27 2018-10-27 Memoria renal 5- 00:00:48 00:00:48 l disease End 17:00: Pineda stage 00 renal disease 10/24/2018 10/27/2018 [facility] Hypertensi Problem 2017-062018-10-15 2018-10-15 Memoria ve 0-12 12:46:18 12:46:18 l emergency 03:05: Interior Hypertensi 37 ve emergency 04/06/2018 10/15/2018 [facility] Allergies, Adverse Reactions, Alerts Allergy Allergy Status Severity Reaction(s) Onset Inactive Treating Comm ents Source Name Type Date Date Clinician Morphine Propensi Active Other (See vomiting Methodi ty to Comments) 12-02 st adverse 00:00: Hospita reaction 00 l s to drug MOPRPHIN DA Active OK 2019-06 [facility] 0-30 Clear 00:00: Benítez 00 [facility] morphine morphine Active Memori a -22 l 00:00: Pineda 00 Family History Family Member Diagnosis Comments Start Date Stop Date Source Natural mother [facility] Social History Social Habit Start Date Stop Date Quantity Comments Source Alcohol intake 2020-04-05 2020-04-05 Current drinker [facility] 00:00:00 00:00:00 of alcohol Hospital (finding) Social History 2018-03-22 2018-03-22 [facility] 10:01:54 10:01:54 Sex Ass[birth year] At [birth year] [facility] Smoking Status Start Date Stop Date Source [facility] smoker [facility] Medications Ordered Filled Start Stop Current Ordering Indication Dosage Frequency Signature Comments Components Source Medication Medication Date Date Medication? Clinician (SIG) Name Name NIFEdipine Yes [facility] (ADALAT [facility]) 60 MG 00:00: Hospita 24 hr 00 l tablet furosemide Yes [facility] (LASIX) 80 4-[facility] mg tablet 00:00: Hospita 00 l doxazosin Yes 6mg [facility] (CARDURA) 8 4-14 st MG tablet 00:00: Hospita 00 l gabapentin Yes [facility] (NEURONTIN) [address] [facility] 300 mg 00:00: Hospita capsule 00 l amoxicillin Yes [facility] i (AMOXIL) [address] [facility] 500 MG 00:00: Hospita capsule 00 l acetaminoph Yes [facility] en-codeine 4-14 st (TYLENOL 00:00: Hospita WITH 00 l CODEINE #3) 300-30 mg per tablet amitriptyli Yes [facility] ne (ELAVIL) 14 st 50 MG 00:00: Hospita tablet 00 l gabapentin Yes Notes: Memor ia 300 MG Oral 09-24 (Same as: l Capsule 17:04: Neurontin) Oxycodone No 5 mg, Memoria Hydrochlori 09-24 Route: PO, l de 5 MG 16:59: Drug form: Herm nicola Oral Tablet 00 TAB, ONCE, Dosing Weight 161.364, kg, PRN Pain Score 4-6, Start date: 09/24/18 11:59:00 CDT Naloxone No Notes: Memoria 09-24 Same as l 14:36: Narcan Flumazenil No Notes: Memor ia 09-24 (Same as: l 14:36: Romazicon) Ondansetron No Notes: Manjinder tammy 09-24 (Same as: l 14:36: Zofran) MEDICATION WASTE Product Size: 4 mg Product Wasted: ___ mg neostigmine No Route: IV, Memoria (ANES) 09-24 Drug form: l 14:28: INJ, ONCE, Stop date: 09/24/18 9:28:00 CDT ondansetron 2018- No Route: IV, Memoria (ANES) 09-24 Drug form: l 14:14: INJ, ONCE, Stop date: 09/24/18 9:14:00 CDT lidocaine 2018-0 No Route: IV, Me moria (ANES) 09-24 Drug form: l 13:44: INJ, ONCE, Stop date: 09/24/18 8:44:00 CDT glycopyrrol 2018- No Route: IV, Memoria ate (ANES) 09-24 Drug form: l 13:44: INJ, ONCE, Stop date: 09/24/18 8:44:00 CDT propofol 2018-0 No Route: IV, Mem oria (ANES) 09-24 Drug form: l 13:44: INJ, ONCE, Stop date: 09/24/18 8:44:00 CDT fentaNYL 2018-0 No Route: IV, Mem oria (ANES) 09-24 Drug form: l 13:44: INJ, ONCE, Stop date: 09/24/18 8:44:00 CDT ceFAZolin 2018- No Route: IV, Me moria (ANES) 09-24 Drug form: l 13:44: INJ, ONCE, Stop date: 09/24/18 8:44:00 CDT cisatracuri 2018- No Route: IV, Memoria um (ANES) 09-24 Drug form: l 13:44: INJ, ONCE, Stop date: 09/24/18 8:44:00 CDT Sodium 2018-0 No 250 mL, Memoria Chloride 09-24 Rate: To l 0.9% 10:00: prime line Pineda (titrate) 00 and flush 250 mL remaining blood products., Dosing Weight 163.1, kg, Route: IV, Total Volume: 250, Start Date: 09/24/18 5:00:00 CDT, Duration: 30 day, Stop date: 10/24/18 4:59:00 CDT, Replace Every: 24 hr Furosemide 2018-0 Yes Daily, 0 Mem oria 3-28 Refill(s) l 18:55: Interior 00 Docusate 2017-06 No Notes: Memoria 0-03 (Same as: l 22:00: Colace) Pineda 00 (Do Not Crush) Miralax 2017-06 No Notes: Memoria 0-03 Dissolve l 22:00: in 8 oz of Pineda 00 water or juice. (Same as: Miralax) clopidogrel 2017-06 Yes 75 mg = 1 M emoria 75 MG Oral 0-03 tab, PO, l Tablet 20:46: Daily, # Pineda [Plavix] 00 30 tab, 0 Refill(s), Pharmacy: [facility] Aspirin 81 2017-06 No 81 mg = 1 Me moria MG Enteric 0-03 tab, PO, l Coated 20:36: Daily, # Interior Tablet 00 90 tab, 3 Refill(s), Pharmacy: [facility] NIFEdipine 2017-06 Yes 60 mg = 1 Me moria 60 mg oral 0-03 tab, PO, l tablet, 19:22: Q12H, # 60 Herm nicola extended 00 tab, 0 release Refill(s), Pharmacy: [facility] isosorbide 2017-06 Yes 20 mg = 1 Me moria dinitrate 0-03 tab, PO, l 20 mg oral 19:22: TID, # 90 He rmann tablet 00 tab, 0 Refill(s), Pharmacy: [facility] atorvastati 2017-06 Yes 10 mg = 1 M emoria n 10 mg 0-03 tab, PO, l oral tablet 19:22: Bedtime, # Interior 00 30 tab, 0 Refill(s), Pharmacy: [facility] Hydralazine 2017-06 Yes 50 mg = 1 M emoria Hydrochlori 0-03 tab, PO, l de 50 MG 19:22: Q8H, # 90 Herm nicola Oral Tablet 00 tab, 0 Refill(s), Pharmacy: [facility] carvedilol 2017-06 Yes 12.5 mg = Me moria 12.5 mg 0-03 1 tab, PO, l oral tablet 19:22: Q12H, # 60 Pineda 00 tab, 0 Refill(s), Pharmacy: [facility] calcitriol 2017-06 Yes 0.25 Memoria 0.25 mcg 0-03 microgram, l oral 19:22: PO, Daily, Interior capsule 00 # 30 caplet, 0 Refill(s), Pharmacy: [facility] polyethylen 2017-06 No 17 gm, PO, Memoria e glycol 0-03 Daily, X 7 l 3350 oral 19:22: day, # 255 He rmann powder for 00 gm, 0 reconstitut Refill(s), ion Pharmacy: [facility] Sodium 2017-06 No 650 mg = 1 Memor ia Bicarbonate 0-03 tab, PO, l 650 MG Oral 19:22: TID, X 30 H ermann Tablet 00 day, # 90 tab, 0 Refill(s), Pharmacy: [facility] sevelamer 2017-06 Yes 800 mg = 1 Me moria carbonate 0-03 tab, PO, l 800 mg oral 19:22: TID-Meals, Pineda tablet 00 # 90 tab, 0 Refill(s), Pharmacy: [facility] Calcitriol 2017-06 No Notes: Memor ia 0-03 (Same As: l 19:20: Rocaltrol) Pineda 00 carvedilol 2017-06 No Notes: Memor ia 0-03 Give with l 02:00: food. Pineda 00 (Same As: Coreg) isosorbide 2017-06 No 30 mg, Memor ia dinitrate 0-02 Route: PO, l 21:00: Drug form: Interior 00 TAB, Q8H, Start date: 03/27/18 16:00:00 CDT, Duration: 30 day, Stop date: 04/26/18 8:00:00 CDT isosorbide 2017-06 No Notes: Memor ia dinitrate 0-02 (Same l 18:00: as:Isordil Interior 00 ) Take on empty stomach/ full glass of water Insulin 2017-06 No 60 Memoria regular 0-02 units) l 12:30: WASTE: F/P Pineda 00 - Black; E - Municipal Trash Bin Stable for 28 days at room temperatur e Expires in days from ____Date [id number] 2017-06 No 25 gm, 50 Memoria (bolus) IV 0-02 mL, Route: l 12:30: IV, Drug Pineda 00 Form: INJ, Dosing Weight 163.1, kg, ONCE, Start date: 03/27/18 7:30:00 CDT, Stop date: 03/27/18 7:30:00 CDT Kayexalate 2017-06 No Notes: Memor ia 0-02 (sodium l 12:30: polystyren Interior 00 e sulfonate 15 gm/60 ml ESTELLE) Shake well before use. (Same as: JACKLYN Killian) sevelamer 2017-06 No Notes: Memori a 0-01 Same as: l 13:00: Renvela Pineda 00 [id number] 2017-06 No 25 gm, 50 Memoria (bolus) IV 0-01 mL, Route: l 12:53: IV, Drug Interior 00 Form: INJ, Dosing Weight 163.1, kg, ONCE, Start date: 03/26/18 7:53:00 CDT, Stop date: 03/26/18 7:53:00 CDT Insulin 2017-06 No 60 Memoria regular 0-01 units) l 12:53: WASTE: F/P Pineda 00 - Black; E - Municipal Trash Bin Stable for 28 days at room temperatur e Expires in days from ____Date Kayexalate 2017-06 No Notes: Memor ia 0-01 (sodium l 12:53: polystyren Interior 00 e sulfonate 15 gm/60 ml ESTELLE) Shake well before use. (Same as: Maria D SPS) Sodium 2017-06 No Notes: Memoria Bicarbonate 0-01 "Dissolve l 11:50: tablet in Pineda 00 a glass of water prior to oral administra tion. STOMACH WARNING: To avoid serious injury, do not take until tablet is completely dissolved. It is very important not to take this product when overly full from food or drink." NIFEdipine No Notes: Memor ia 60 mg oral 9-30 (Same as: l tablet, 14:00: Adalat CC, Herm nicola extended 00 Procardia release XL) Give on empty stomach. Take 1 hour before or 2 hours after meal; "Avoid grapefruit and grapefruit juice". Do not crush Magnesium No Notes: Memori a Sulfate 03-25 WASTE: F/P l 12:20: - Sink; E Pineda - [facility] Trash Bin NIFEdipine No Notes: Memor ia 60 mg oral 03-25 (Same as: l tablet, 04:00: Adalat CC, Herm nicola extended Procardia release XL) Give on empty stomach. Take 1 hour before or 2 hours after meal; "Avoid grapefruit and grapefruit juice". Do not crush Hydralazine No Notes: Manjinder tammy Hydrochlori 03-25 (Same as: l de 50 MG 02:00: Apresoline Her oliva Oral Tablet 00 ) May interfere w/enteral feedings Take With Food. Hydralazine No Notes: Manjinder tammy Hydrochlori 03-24 (Same as: l de 50 MG 21:00: Apresoline Her oliva Oral Tablet 00 ) May interfere w/enteral feedings Take With Food isosorbide No Notes: Memor ia dinitrate 03-24 (Same l 21:00: as:Isordil ) Take on empty stomach/ full glass of water NIFEdipine No Notes: Memor ia 60 mg oral 03-24 (Same as: l tablet, 20:59: Adalat CC, Herm nicola extended Procardia release XL) Give on empty stomach. Take 1 hour before or 2 hours after meal; "Avoid grapefruit and grapefruit juice". Do not crush NIFEdipine No 60 mg, Memor ia 60 mg oral 03-24 Route: PO, l tablet, 20:57: Drug form: Herm nicola extended ERTAB, release ONCE, Dosing Weight 163.1, kg, Priority: NOW, Start date: 03/24/18 15:57:00 CDT, Stop date: 03/24/18 15:57:00 CDT, .. hydrALAZINE No 25 mg, Manjinder tammy 03-24 Route: PO, l 18:00: Drug form: Pineda 00 TAB, TID, Start date: 03/24/18 13:00:00 CDT, Duration: 30 day, Stop date: 04/23/18 9:00:00 CDT Kayexalate No Notes: Memor ia 03-24 (sodium l 17:54: polystyren Interior 00 e sulfonate 30gm powder) (Same as: Kayexalate , SPS) Shake well before use Acetaminoph No Notes: Do M emoria en 03-24 not exceed l 17:22: 4 gm/day. Interior (Same as: Tylenol) Hydralazine No Notes: Manjinder tammy 03-24 (Same as: l 16:06: Apresoline ) May interfere w/enteral feedings Take With Food. Tylenol No Notes: Do Memor ia 03-24 not exceed l 01:41: 4 gm/day. Pineda (Same as: Tylenol) Melatonin 3 No Notes: Manjinder tammy MG Extended 03-23 (Same as: l Release 23:00: Melatonin) Herm nicola Tablet hydrALAZINE No Notes: Manjinder tammy 03-23 (Same as: l 21:00: Apresoline ) May interfere w/enteral feedings. Take With Food isosorbide No Notes: Memor ia dinitrate 03-23 (Same l 14:00: as:Isordil ) Take on empty stomach/ full glass of water hydrALAZINE No 12.5 mg, Me moria 03-23 0.5 tab, l 14:00: Route: PO, Drug form: TAB, TID, Start date: 03/23/18 9:00:00 CDT, Duration: 30 day, Stop date: 04/21/18 17:00:00 CDT Hydralazine No 1 tab, Manjinder tammy Hydrochlori 03-23 Route: PO, l de 37.5 MG 14:00: Dosing Aurelia Weight Isosorbide 163.1, kg, Dinitrate TID, Start 20 MG Oral date: Tablet 03/23/18 [Bidil] 9:00:00 CDT, Duration: 30 day, Stop date: 04/21/18 17:00:00 CDT heparin No Notes: Memoria 03-23 porcine l 13:00: heparin Labetalol No 10 mg, 2 Manjinder tammy - mL, Route: l 04:53: IV, Drug Pineda 00 form: INJ, ABXQ6H, Dosing Weight 163.1, kg, PRN Hypertensi on, Start date: 03/22/18 23:53:00 CDT, Duration: 30 day, Stop date: 04/21/18 23:52:00 CDT Labetalol 2018-0 No 10 mg, 2 Manjinder tammy 9-28 mL, Route: l 01:13: IVP, Drug form: INJ, ONCE, Dosing Weight 163.1, kg, Priority: NOW, Start date: 03/22/18 20:13:00 CDT, Stop date: 03/22/18 20:13:00 CDT Labetalol 2018-0 No 20 mg, 4 Manjinder tammy 9-28 mL, Route: l 01:06: IVP, Drug form: INJ, ONCE, Dosing Weight 163.1, kg, Priority: NOW, Start date: 03/22/18 20:06:00 CDT, Stop date: 03/22/18 20:06:00 CDT Hydralazine 2018-0 No 10 mg, Manjinder tammy 9-28 Route: IV, l 01:04: ONCE, Dosing Weight 163.1, kg, Start date: 03/22/18 20:04:00 CDT, Stop date: 03/22/18 20:04:00 CDT NIFEdipine 2018-0 No 60 mg, 1 Mem oria 60 mg oral 03-22 tab, l tablet, 21:50: Route: PO, Herm Drug form: release ERTAB, Daily, Dosing Weight 163.1, kg, Start date: 03/22/18 16:50:00 CDT, Duration: 30 day, Stop date: 04/21/18 9:00:00 CDT, .. Saline 2017-0 No Notes: Memoria Flush 0.9% 03-22 (Same as: l 14:00: BD Posiflush) heparin 2017-0 No Notes: Memoria - porcine l 13:00: heparin Dextrose 2018-0 No 25 gm, 50 Manjinder tammy 50% Syringe 9-27 mL, Route: l 11:16: IVP, Drug Form: INJ, Dosing Weight 163.1, kg, PRN, PRN Blood Glucose Results, Start date: 03/22/18 6:16:00 CDT, Duration: 30 day, Stop date: 04/21/18 6:15:00 CDT Glucagon No 1 mg, Memoria 03-22 Route: IM, l 11:16: Drug form: Pineda 00 PDR/INJ, PRN, Dosing Weight 163.1, kg, PRN Blood Glucose Results, Start date: 03/22/18 6:16:00 CDT, Duration: 30 day, Stop date: 04/21/18 6:15:00 CDT Insulin No Notes: Memoria Lispro 03-22 (Same as: l 11:16: Humalog ) Interior 00 Roll in palms of hands gently; Do not shake `vigorousl y. "Single Patient Use Only " WASTE: F/P - Black; E - Municipal Trash Bin Stable for 28 days at room temperatur e. Expires in days from ____Date Amlodipine No 1 tab, PO, M emoria 10 MG / 03-22 Bedtime, # l atorvastati 10:18: 30 tab, 0 H ermann n 10 MG 00 Refill(s) Oral Tablet spironolact No 50 mg = 1 M emoria one 50 mg 03-22 tab, PO, l oral tablet 10:18: Daily, # He rmann 00 30 tab, 1 Refill(s) Hydrochloro No 1 tab, PO, Memoria thiazide 25 03-22 Daily, # l MG / 10:18: 30 tab, 0 Pineda valsartan 00 Refill(s) 320 MG Oral Tablet glimepiride No 2 mg = 1 Me moria 2 mg oral 03-22 tab, PO, l tablet 10:18: Breakfast, Aurelia nn 00 # 30 tab, 0 Refill(s) Metformin No 1,000 mg = Me moria hydrochlori 03-22 1 tab, PO, l de 1000 MG 10:18: BID, 0 Aurelia nn Oral Tablet 00 Refill(s) Saline No Notes: Memoria Flush 0.9% 03-22 (Same as: l 10:02: BD Interior 00 Posiflush) Nicardipine No Notes: Manjinder tammy 03-22 Same as: l 09:07: Cardene Concentrat ion: (0.1 mg/ 1 ml) Labetalol No 10 mg, Memori a 03-22 Route: IV, l 03:55: ONCE, Dosing Weight 165.909, kg, Start date: 03/21/18 22:55:00 CDT, Stop date: 03/21/18 22:55:00 CDT Labetalol No 10 mg, Memori a 03-22 Route: IV, l 03:54: ONCE, Dosing Weight 165.909, kg, Start date: 03/21/18 22:54:00 CDT, Stop date: 03/21/18 22:54:00 CDT Kayexalate No Notes: Memor ia 03-22 (sodium l 02:55: polystyren e sulfonate 15 gm/60 ml ESTELLE) Shake well before use. (Same as: Kayexalate , SPS) Lasix No Notes: Memoria 03-22 (Same as: l 02:54: Lasix) MEDICATION WASTE Product Size: 40 mg Product Wasted: ___ mg Isolyte S No Notes: Memori a PH-7.4 03-22 (Same as: l (Bolus) IV 02:32: Isolyte S PH 7.4) Albuterol No Notes: SEE Me moria 0.83 MG/ML 03-22 RT l Inhalant 02:32: DOCUMENTAT Her oliva Solution 00 ION (Same as: Proventil) Dextrose No 50 gm, 100 Mem oria 50% Syringe 03-22 mL, Route: l 02:31: IV, Drug Form: INJ, Dosing Weight 165.909, kg, ONCE, Start date: 03/21/18 21:31:00 CDT, Stop date: 03/21/18 21:31:00 CDT Insulin No 60 Memoria regular 03-22 units) l 02:31: WASTE: F/P Pineda - Black; E - Municipal Trash Bin Stable for 28 days at room temperatur e Expires in days from ____Date Vital Signs Vital Name Observation Time Observation Value Comments Source Systolic blood 2020-12-02 21:18:00 196 mm[Hg] [facility] pressure Diastolic blood 2020-12-02 21:18:00 127 mm[Hg] [facility] pressure Heart rate 2020-12-02 20:16:00 77 /min [facility] Body temperature 2020-12-02 20:16:[address] [facility] Body height 2020-12-02 20:16:[address] [facility] Body weight 2020-12-02 20:16:[address] [facility] BMI 2020-12-02 20:16:00 45.60 kg/m2 [facility] Oxygen saturation in 2020-12-02 20:16:00 97 /min [facility] Arterial blood by Pulse oximetry Temperature Oral (F) 2018-10-24 21:53:00 98 F [facility] Respitory Rate 2018-10-24 21:53:00 Memori al Interior Systolic (mm Hg) 2018-10-24 21:53:00 Manjinder rial Interior Diastolic (mm Hg) 2018-10-24 21:53:00 Mem orial Interior Respitory Rate 2018-10-24 20:25:00 Memori al Interior Respitory Rate 2018-10-24 18:02:00 Memori al Interior Systolic (mm Hg) 2018-10-24 18:02:00 Manjinder rial Interior Diastolic (mm Hg) 2018-10-24 18:02:00 Mem orial Interior Systolic (mm Hg) 2018-10-24 16:58:00 Manjinder rial Pineda Diastolic (mm Hg) 2018-10-24 16:58:00 Mem orial Pineda Temperature Oral (F) 2018-10-24 16:58:00 98.2 F [facility] Height 2018-10-24 12:06:00 185.42 cm [facility] BMI Calculated 2018-10-24 12:06:00 Memori al [place] Weight 2018-10-24 12:06:00 [facility] Heart Rate 2018-10-24 12:06:00 [facility] [place] Temperature Oral (F) 2018-10-24 12:06:00 97.8 F [facility] Systolic (mm Hg) 2018-09-24 15:27:00 Manjinder rial [place]ineda Diastolic (mm Hg) 2018-09-24 15:27:00 Mem orial Pineda Respitory Rate 2018-09-24 15:27:00 Memori al Interior Systolic (mm Hg) 2018-09-24 15:00:00 Manjinder rial Pineda Diastolic (mm Hg) 2018-09-24 15:00:00 Mem orial Pineda Respitory Rate 2018-09-24 15:00:00 Memori al [place] Respitory Rate 2018-09-24 14:45:00 Memori al Interior Systolic (mm Hg) 2018-09-24 14:45:00 Manjinder rial Pineda Diastolic (mm Hg) 2018-09-24 14:45:00 Mem orial Pineda Weight 2018-09-24 12:14:00 [facility] [place] BMI Calculated 2018-09-24 12:14:00 Memori al Interior Height 2018-09-24 12:14:00 185.42 cm [facility] Heart Rate 2018-09-24 10:45:00 [facility] [place] BMI Calculated 2018-09-20 18:58:00 Memori al [place] Weight 2018-09-20 18:58:00 [facility] Interior Height 2018-09-20 18:58:00 185.42 cm [facility] Systolic (mm Hg) 2018-03-28 16:35:00 Manjinder rial Pineda Diastolic (mm Hg) 2018-03-28 16:35:00 Mem orial Pineda Heart Rate 2018-03-28 16:35:00 [facility] Respitory Rate 2018-03-28 16:35:00 [facility] Temperature Oral (F) 2018-03-28 16:35:00 98.1 F [facility] Temperature Oral (F) 2018-03-28 12:35:00 98.2 F [facility] Heart Rate 2018-03-28 12:35:00 [facility] Systolic (mm Hg) 2018-03-28 12:35:00 Manj[facility] Diastolic (mm Hg) 2018-03-28 12:35:00 [facility] Respitory Rate 2018-03-28 12:35:00 Gaurang Luz Temperature Oral (F) 2018-03-28 10:10:00 [address] [facility] Interior Respitory Rate 2018-03-28 10:10:00 Gaurang chaidez Interior Heart Rate 2018-03-28 10:10:[address] [facility] Interior Systolic (mm Hg) 2018-03-28 10:10:00 Manjinder avila [facility] Diastolic (mm Hg) 2018-03-28 10:10:00 [facility] orial [facility] BMI Calculated 2018-03-22 09:08:00 Gaurang al [facility] Weight 2018-03-22 09:08:00 [facility] 2018-03-22 09:08:00 185.42 cm [facility] BMI Calculated 2018-03-22 00:57:00 Blancaori al [facility] Weight 2018-03-22 00:57:00 [facility] Height 2018-03-22 00:57:00 185.42 cm [facility] Procedures Procedure Date / Time Performed Performing Clinician [facility] e Eye reconstruction [facility] Hernia repair [facility] Knee joint operation [facility] Plan of Care Planned Activity Planned Date Details Comments Source Future Scheduled Test DIABETES: RETINAL EYE [facility] EXAM [code = DIABETES: RETINAL EYE EXAM] Future Scheduled Test DIABETIC FOOT EXAM [facility] [code = DIABETIC FOOT EXAM] Future Scheduled Test COVID-19 VACCINE (1) [facility] [code = COVID-19 VACCINE (1)] Future Scheduled Test Hepatitis C screening [facility] (procedure) [code = 495769894] Future Scheduled Test INFLUENZA VACCINE [facility] [code = INFLUENZA VACCINE] Encounters Start End Encounter Admission Attending Care Care Encounter Source Date/Time Date/Time Type Type Clinicians Facility Department ID 2020-12-07 2020-12-07 Travel 1.2.840.1 [id number] Methodi 00:00:00 00:00:[address] 3.430.2.7 0.2.7.3.698 Ho spita .3.895665 084.8 l .8 2020-12-07 2020-12-07 Orders Negrete, 1.2.840.1 [id number] Methodi 00:00:00 00:00:00 Only Marie 86020.1.[address] 3.430.2.7 Hospit a .3.741661 l .8 2020-12-03 2020-12-[address], 1.2.840.1 [id number] 2100 [id number] Methodi 00:00:00 00:00:00 Clemente 16405.1.1 991 [facility] 3.430.2.7 Hosp flor .3.877079 l .8 2020-12-02 2020-12-[address], 1.2.840.1 [id number] Methodi 15:12:20 16:22:20 Visit Clemente 76982.1.1 401 [facility] 3.430.2.7 Hosp flor .3.521354 l .8 2020-12-02 2020-12-02 Outpatient SHERMAN, [facility] [id number] [place] 00:00:00 00:00:00 CLEMENTE [address] 2020-12-02 2020-12-02 Travel 1.2.840.1 1.2.342.196 8113 [id number] Methodi 00:00:00 00:00:[address] 3.430.2.7 0.2.7.3.698 Ho spita .3.186846 084.8 l .8 2020-12-01 2020-12-01 Telephone Jonathan, 1.2.840.1 [id number] 2100 [id number] Methodi 00:00:00 00:00:[address] [place] 3.430.2.7 Hosp flor .3.420651 l .8 2020-12-01 2020-12-[address], 1.2.840.1 [id number] 2099 [id number] Methodi 00:00:00 00:00:[address] [facility] 3.430.2.7 Hosp flor .3.920987 l .8 2020-10-21 2020-10-21 Office Sherman, 1.2.840.1 [id number] 5128 Methodi 14:56:04 15:47:36 Visit Clemente 70090.1.[address]-[facility] 3.430.2.7 Hosp flor .3.557194 l .8 2020-10-21 2020-10-[address] [facility] [id number] [place] 00:00:00 00:00:00 CLEMENTE Cardenas[address] 2020-10-21 2020-10-21 Travel 1.2.840.1 1.2.684.583 [id number] Methodi 00:00:00 00:00:[address] 3.430.2.7 0.2.7.3.698 Ho spita .3.164383 084.8 l .8 2020-09-24 2020-09-24 Telephone Justice, 1.2.840.1 [id number] Methodi 00:00:00 00:00:[address] 3.430.2.7 Hospit a .3.918783 l .8 2020-04-03 2020-04-03 Orders Crum, 1.2.840.1 [id number] Methodi 00:00:00 00:00:00 Only Paria 03076.1.1 811 s t 3.430.2.7 Hospit a .3.755929 l .8 2020-04-03 2020-04-03 Telephone Rendon, 1.2.840.1 [id number] Methodi 00:00:00 00:00:[address] 3.430.2.7 Hospit a .3.437281 l .8 2018-10-24 2018-10-24 Outpatient Vish [facility] [id number] 675 07:02:21 17:12:00 Marissa Soliz 2018-10-24 2018-10-24 Emergency E [id number] [facility] 07:02:00 07:02:00 2018-09-24 2018-09-24 Outpatient Sarah [facility] [id number] 05:19:00 23:59:00 w, Minesh Cardenas 2018-09-24 2018-09-24 Outpatient [id number] 05:19:00 05:19:00 2018-03-21 2018-03-28 Outpatient Johnson [facility] [id number] 675 19:55:00 17:26:00 Camilo Nawaf 00 Results Test Description Test Time Test Comments Results Result Comments Source GLUBED 2020-04-27 05:14:00 Test Item Value Reference Range Interpretation Comme nts GLUBED (test code = GLUBED) 126 MG/DL 70-110 H 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 by 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 at [facility] [id number] 14:58:00 Test Item Value Reference Range Interpretation Comments GLUBED (test code = 115 MG/DL 70-110 H Performe d by certified GLUBED) runstitching machine operator at [facility] COVID 19 Asymptomatic IH [id number] 11:18:00 Test Item Value Reference Range Interpretation Comments COVID 19 Asymptomatic Negative Negative A nega tive result is IH AG (test code = presumpti ve and should COVNONPUIAG) be confirmedwit h an FDA authorized mole cular assay, if neces emelia forpatient vanessa gement.A positive result does not rule out co-inf ections withother patho gens.This test detects bita th viable (live) and non-viable,SARS -CoV, and SARS-CoV-2. Samantha t performance dep ends on theamount of vi kip (antigen) in th e sample.This samantha t has not been FDA cleare d or approved; the t est hasbeen authori zed by FDA under an Em ergency Use Authorizati on(EUA) for use by labo ratories certified under the CLIA thatmeet the requirements to perform moderate, high or waivedcomplexit y tests. COMMENTS: If not done this admission- XR CHEST 2 [id number] 11:16:00 [facility] 1970 Sex: M FAX: Humberto Ness MD [phone] [place]: St: REG Name: CHERIE STYLES [facility] Asha Benítez : 1970 Age/S: 49/M [address] [place] [address] Unit #: [id number] Loc: [place] [address] Phys: Humberto Tee MD Acct: [id number] Dis Date: Status: REG [facility] PHONE #: [phone] Exam Date: 04/24/2020 1106 FAX #: [phone] Reason: PREOP EXAMS: CPT CODE: [id number] XR CHEST 2 V [id number] EXAM: XR CHEST 2 VIEWS DATE: 04/24/2020 10:05 AM : 1970; Age: 49 years y/o Male INDICATION: End-stage renal disease, PREOP COMPARISON: None. TECHNIQUE: PA and lateral chest radiographs. FINDINGS: Lines, tubes and hardware: Right IJ line with tip overlying the atriocaval junction. Lungs and pleura: Minimal scarring or atelectasis involving theright lung base. Left perihilar 1.4 cm oval-shaped opacity is seen. No pleural effusion. Heart and mediastinum: The heart size is normal for technique. The mediastinal contours are normal. Pulmonary vascularity is normal. IMPRESSION: Minimal scarring or atelectasis involving the right lung base. Left perihilar 1.4 cm oval-shaped opacity is seen. This may represent granuloma however noncalcified lung lesion is also in differential. Further evaluation with CT chest without contrast is recommended. SL: [id number] at 1116 Reported and signed by: Apryl Almeida D.O. CC: Humberto Tee MD Technologist: Harini Anderson RT(R) Trnscrd Date/Time/By: 04/24/2020 (1116) : By: [email or web address] Orig Print D/T: S: 04/24/2020 (1120) PAGE 1 Signed ReportBASIC METABOLIC [id number] 11:03:00 Test Item Value Reference Range Interpretation Comments SODIUM (test code = NA) 138 mEq/L 134-147 N POTASSIUM (test code = 3.9 mEq/L 3.4-5.0 N K) CHLORIDE (test code = 102 mEq/L 100-108 N CL) CARBON DIOXIDE (test 27 mEq/L 21-33 N code = CO2) ANION GAP (test code = 13 0-20 N GAP) GLUCOSE (test code = 126 mg/dL 70-110 H GLU) BLOOD UREA NITROGEN 27 mg/dL 7-18 H (test code = BUN) GLOMERULAR FILTRATION 8.3 95-105 L Units of measure = RATE (test code = GFR) ml/mi n/1.73 m2 CREATININE (test code = 8.4 mg/dL 0.6-1.3 H CREAT) CALCIUM (test code = 7.7 mg/dL 8.0-10.5 L CA) PROTHROMBIN [id number] 10:49:00 Test Item Value Reference Range Interpretation Comments PROTHROMBIN TIME 12.0 SECONDS 9.3-12.9 N PATIENT (test code = PTP) INTERNATIONAL NORMAL 1.1 0.8-1.2 N TARGET RATIO (test code = INR BY IN DICATION INR) Indication INR1. Prophyl axis of venous thrombos is 2.0 - 3. 0 (orthopedic alessandra reza), Prophylaxis of venous thrombos is (other than hig h-risk surgery), Millie tment of Deep Vein Thrombosis/Pulm onary Embolism, Preve ntion of systemic emb olism - Tissue heart va lves, Acute Myocardia l Infarction (to prevent systemic embo lism), Valvular heart disease, Atri al Fibrillation, Bileaflet mecha nical valve in aortic position.2. Mec hanical prosthetic valv es (high risk), 2.5 - 3.5 Presence of Lupus Anticoagu lant or Antiphospholi pid Antibodies, Pre vention of systemic e mbolism - Acute Myocard ial Infarction (t o prevent recurre nt infarct). THROMBOPLASTIN TIME [id number] 10:49:00 Test Item Value Reference Range Interpretation Comments THROMBOPLASTIN TIME 31.1 Seconds 25.0-39.5 N Ther apeutic PARTIAL (test code = Range: 50.4 - 88.3 PTT) Seconds Effective 10/09/2018 CBC W/AUTO [id number] 10:36:00 Test Item Value Reference Range Interpretation Comments WHITE BLOOD CELL (test code = x10 3/uL 4.5-11.0 WBC) RED BLOOD CELL (test code = RBC) x10 6/uL 4.00-5.60 HEMOGLOBIN (test code = HGB) g/dL 12.5-16.9 HEMATOCRIT (test code = HCT) % 37.5-50.7 MEAN CELL VOLUME (test code = fL 81.0-99.0 MCV) MEAN CELL HGB (test code = MCH) pg 27.0-33.0 MEAN CELL HGB CONCETRATION (test g/dL 33.0-37.0 code = MCHC) RED CELL DISTRIBUTION WIDTH CV % 11.5-14.5 (test code = RDW) PLATELET COUNT (test code = PLT) 174 x10 3/uL 150-400 N NEUTROPHIL % (test code = NT%) % 56.0-77.0 LYMPHOCYTE % (test code = LY%) % 14.0-32.0 NEUTROPHIL # (test code = NT#) x10 3/uL 2.0-7.6 LYMPHOCYTE # (test code = LY#) x10 3/uL 1.0-3.8 MANUAL DIFF REQUIRED (test code = MDIFF) CBC W/AUTO [id number] 10:36:00 Test Item Value Reference Range Interpretation Comments WHITE BLOOD CELL (test code = 3.3 x10 3/uL 4.5-11.0 L WBC) RED BLOOD CELL (test code = 3.59 x10 6/uL 4.00-5.60 L RBC) HEMOGLOBIN (test code = HGB) 11.9 g/dL 12.5-16.9 L HEMATOCRIT (test code = HCT) 36.3 % 37.5-50.7 L MEAN CELL VOLUME (test code = 101.1 fL 81.0-99.0 H MCV) MEAN CELL HGB (test code = MCH) 33.1 pg 27.0-33.0 H MEAN CELL HGB CONCETRATION 32.8 g/dL 33.0-37.0 L (test code = MCHC) RED CELL DISTRIBUTION WIDTH CV 13.3 % 11.5-14.5 N (test code = RDW) RED CELL DISTRIBUTION WIDTH SD 49.6 fL 37.0-54.0 N (test code = RDW-SD) PLATELET COUNT (test code = 174 x10 3/uL 150-400 N PLT) MEAN PLATELET VOLUME (test code 10.0 fL 7.0-9.0 H = MPV) NEUTROPHIL % (test code = NT%) 60.9 % 56.0-77.0 N IMMATURE GRANULOCYTE % (test 0.6 % 0.0-2.0 N code = IG%) LYMPHOCYTE % (test code = LY%) 23.8 % 14.0-32.0 N MONOCYTE % (test code = MO%) 10.8 % 4.8-9.0 H EOSINOPHIL % (test code = EO%) 3.0 % 0.3-3.7 N BASOPHIL % (test code = BA%) 0.9 % 0.0-2.0 N NUCLEATED RBC % (test code = 0.0 % 0-0 N NRBC%) NEUTROPHIL # (test code = NT#) 2.02 x10 3/uL 2.0-7.6 N IMMATURE GRANULOCYTE # (test 0.02 x10 3/uL 0.00-0.03 N code = IG#) LYMPHOCYTE # (test code = LY#) 0.79 x10 3/uL 1.0-3.8 L MONOCYTE # (test code = MO#) 0.36 x10 3/uL 0.1-0.8 N EOSINOPHIL # (test code = EO#) 0.10 x10 3/uL 0.0-0.2 N BASOPHIL # (test code = BA#) 0.03 x10 3/uL 0.0-0.2 N NUCLEATED RBC # (test code = 0.00 x10 3/uL 0.0-0.1 N NRBC#) MANUAL DIFF REQUIRED (test code NO = MDIFF) [id number] 13:13:00Negative *NA*(10/24/18 8:13 AM)[facility] [id number] 13:07:00Negative (10/24/18 8:07 AM)[facility] DFDWDLDXGVYF8197-22-72 13:01:5014.8[facility] PecmzkjZGGEUWFVXNPK3318-18-85 13:01:507[facility] KynszwtAVQQKLENEBXU9009-61-27 13:01:508.2[facility] DWEGEYOBOOJC0922-24-79 13:01:04920Xbmdjrlc UbxjeqxNTEGNIDBEFSP2948-73-02 13:01:5074[facility] GujiukhYSYXHMYKIMYL7853-89-20 13:01:509.58[facility] BKAZUYTBRCPE1683-40-05 13:01:504.8[facility] EsiahfuHUIXEYWGMBOF8249-33-04 13:01:5021[facility] VenaklcIQVVUOJFVORR6911-96-07 13:01:01823Kuaqvivt Interior RQMFJBKSXEOV0207-36-53 13:01:23115Zcfiwzab NbaokpgGGFLSTVBTP8275-32-09 13:01:50 Test Item Value Reference Range Interpretation Comments INR (test code = INR) 1.05 1 0.85-1.17 Memorial RdumboqGOBBJUUPQY4730-39-98 13:01:50 Test Item Value Reference Range Interpretation Comments PT (test code = PT) 13.5 s 12.0-14.7 [facility] UpwtlhuYGPJIQNQFX0338-68-16 13:01:50 Test Item Value Reference Range Interpretation Comments PTT (test code = PTT) 30.3 s 22.9-35.8 Memorial HcgfmtrIRUAPGUPKI6066-03-59 13:01:508.5[facility] HermannHEMATOLOGY 2018-10-24 13:01:504.2[facility] PdtqkskWBUWMBDLGN8855-92-05 13:01:5014.6[facility] XqpkphmCPFIRAFFZN7699-34-80 13:01:60907Giqhdlvv QdgpdyhFRJBRGJEJA8315-00-68 13:01:5034.0[facility] ZogzhzfNAXNOPUEHI4388-12-69 13:01:5085.3[facility] IAYIYJHVUF9694-10-91 13:01:50 Test Item Value Reference Range Interpretation Comments MCH (test code = MCH) 29.0 pg 27.0-31.0 [facility] ObquqmdZPASCGKMKF2721-84-06 13:01:5020.9[facility] HermannHEMATOLOGY 2018-10-24 13:01:507.1[facility] YnhkofdKOWUQJTPAD1099-60-84 13:01:502.45[facility] MctyzmkLWZDBJWMNP0204-59-34 13:01:500.1[facility] GtewrrqNDLJPENMWP2920-23-22 13:01:5014.3[facility] EirqhgwLOSLWCGOAZ3998-14-46 13:01:5071.6[facility] UQFRSWOQAR0691-24-03 13:01:503.0[facility] KylxvgfEZVHACAYDN3070-33-24 13:01:500.4 [facility] VrrwxelEFUAFYHAXM9947-58-86 13:01:500.6[facility] HermannHEMATOLOGY 2018-10-24 13:01:500.6[facility] CydkyrdTIPHMKEDJK0053-85-63 13:01:502.7[facility] MoxgeggNFRSTSISXH4535-22-14 13:01:5010.8[facility] HermannBACTERIAL - SEROLOGY 2018-09-24 11:32:00Negative (09/24/18 6:32 AM)[facility] HermannELECTROLYTES 2018-09-24 11:09:004.4[facility] RFAZBYU6249-38-20 11:05:00 Negative (09/24/18 6:05 AM)[facility] HermannCHEM GEIID2698-97-67 11:05:006[facility] HermannCHEM XOIWE7528-35-69 11:05:000.2[facility] HermannCHEM HJQGW4516-17-63 11:05:008[facility] HermannCHEM AHJJS3814-07-31 11:05:0064[facility] HermannCHEM SZMCO6858-15-68 11:05:0015[facility] HermannCHEM YINDM2920-83-92 11:05:004.5 [facility]annCHEM VVVFN2346-54-05 11:05:007.3[facility] HermannCHEM PANEL 2018-09-24 11:05:0020[facility] HermannCHEM HXIHH3300-09-21 11:05:003.3[facility] HermannCHEM VLMIH9490-80-12 11:05:008.4[facility] HermannCHEM PDKNS6899-46-36 11:05:16879Qodzxxvh HermannCHEM PZBGN2362-35-37 11:05:0010.30[facility] CHEM IVRDH4154-44-26 11:05:97256Nxeykntj HermannCHEM ZCRLT1792-66-69 11:05:54858 [facility] HermannCHEM KKOOO0259-36-79 11:05:0076[facility] HermannCHEM PANEL 2018-09-24 11:05:00 Test Item Value Reference Range Interpretation Comments A/G Ratio (test code = A/G Ratio) 0.8 1 0.7-1.6 [facility]annCHEM SNTSW8240-06-59 11:05:00 Test Item Value Reference Range Interpretation Comments B/C Ratio (test code = B/C Ratio) 7 1 6-25 [facility] HermannCHEM NGIGD2688-07-62 11:05:004.0[facility] HermannCHEM PANEL 2018-09-24 11:05:0013.5[facility] HdqmquuUTTEYWXCKY0205-91-70 11:05:001.0[facility] JxcpuhnHSPPEXQOKX4263-27-59 11:05:000.1[facility] DhnirqdPXMHHEFMVI1080-41-68 11:05:000.2[facility] FbzplpaJZAMJFFYOQ4697-48-95 11:05:000.9[facility] UVZOOAFRSX5706-79-82 11:05:002.2[facility] OohkqbhRIOWVZQXJA6485-85-15 11:05:002.0 [facility] HpcmnyaRKGAEPJJIR0386-33-41 11:05:003.2[facility] HermannHEMATOLOGY 2018-09-24 11:05:0016.1[facility] GtgiwifBXSQKCNIWP1300-90-86 11:05:0042.0[facility] RzmrzluBKEUYYBRMW0342-79-81 11:05:0038.7[facility] EcqmokjYJNYAVQIBR2050-97-37 11:05:00 Test Item Value Reference Range Interpretation Comments PT (test code = PT) 14.5 s 12.0-14.7 [facility] GerawzdDKLOLULLFB8816-84-40 11:05:00 Test Item Value Reference Range Interpretation Comments INR (test code = INR) 1.15 1 0.85-1.17 [facility] XwyvuiyJGEQILAGAC7603-47-92 11:05:00 Test Item Value Reference Range Interpretation Comments PTT (test code = PTT) 31.4 s 22.9-35.8 Memorial HutplwyPNMHEUJQSG7765-95-54 11:05:007.5[facility] HermannHEMATOLOGY 2018-09-24 11:05:0021.9[facility] CjrgzegKVJNFUIXMH5104-52-41 11:05:00 Test Item Value Reference Range Interpretation Comments MCH (test code = MCH) 28.5 pg 27.0-31.0 [facility] AnidsiuTUOLPXZYXE1446-18-91 11:05:0034.4[facility] HermannHEMATOLOGY 2018-09-24 11:05:0014.2[facility] YtbvwdoILGUDROLSV0909-14-78 11:05:24183Eapoqkmh ZnlnnqiVXRYWHSYEJ6918-06-91 11:05:005.3[facility] LmuqzhoJSDCWNSZTM3379-36-80 11:05:0082.8[facility] VzfuwyqLIOYNZSDGH9843-72-45 11:05:002.65[facility] FNZNOFNFYA2346-55-60 11:05:008.7[facility] HermannCHEM LILTR6639-33-61 05:26:005.7 [facility] TndqndcHQCSMMPBSPEZ7063-70-57 05:26:16486Xqlarvyw HermannELECTROLYTES 2018-03-28 05:26:004.9[facility] BlfwuliUAKEVCOAEFVQ8257-93-45 05:26:96140Gvazafrw PlpwbuiVOOBHSENMRTB8725-23-35 05:26:51684Dxustrfl EcvebcsKNPBIRZULVYY2377-63-55 05:26:0067[facility] LofeyxsTZWHEINVZKIP9138-10-94 05:26:008.79[facility] OHGKKKMFMGNP6065-38-40 05:26:0013.9[facility] ErsdydeMSFUJHBPFQCR4122-74-92 05:26:008.1[facility] QcuurptWYTONYVKPNZO7219-30-63 05:26:0026[facility] AOHYBKAHZJXY9139-63-45 05:26:008[facility] GwfceyrWYOYZJZCMR5406-72-70 05:26:00 Negative *NA*(03/28/18 12:26 AM)[facility] HermannPARATHYROID OSAOVRE8470-05-36 05:26:63246.3[facility] HermannPARATHYROID CBYTLOC6609-62-57 18:43:30066.7[facility] HermannCHEM PTAAP7614-83-47 17:20:007[facility] HermannCHEM XOEST9843-48-40 17:20:0015.4[facility] HermannCHEM NFGQD5098-07-93 17:20:004.4[facility] HermannCHEM IVNZH8681-35-44 17:20:87000Fughizrd HermannCHEM HEJLS4856-80-79 17:20:0021 [facility] HermannCHEM UKDOS6955-04-61 17:20:008.6[facility] HermannCHEM PANEL 2018-03-27 17:20:13396Uballatj HermannCHEM GSTVP2806-60-03 17:20:008.87[facility] HermannCHEM PRFUQ4889-00-86 17:20:38941Uhigmwnr HermannCHEM LRIQU4408-37-12 17:20:0064[facility] HermannURINE JOBU9402-41-52 17:20:51427.1[facility] URINE MCUH8459-78-44 17:20:626449Gfxlnykp HermannURINE NLQR9115-53-88 17:20:0024 (03/27/18 12:20 PM)[facility] HermannURINE OHGB1586-11-01 17:20:055130Zkquhhsc HermannCARDIAC EFQKVEU0864-35-43 06:17:51494Xedmodlu HermannCHEM BQJXW1723-70-03 06:17:005.0[facility] UauytamKDBNKYUOCGEO4487-46-68 06:17:0014.4[facility] MNBCRYXVOQZF7484-45-06 06:17:007[facility] DhffiocMJABCDBCBHAT5368-44-78 06:17:00 122[facility] JskmodfIEOSEGGNZKWJ1040-09-87 06:17:005.4[facility] YWDEDWJRTMJI2650-83-45 06:17:0071[facility] GnoosyzLYGBTWHVKJOW0042-94-50 06:17:00 8.81[facility] IuidoeqJKEBOCINBLUS5772-65-80 06:17:19366Wfxjwnzg Interior FNVJEOCXCBHT0309-77-35 06:17:0020[facility] AvbpyqeGYRTYPGEJIJF1694-26-72 06:17:00 108[facility] QkxbqzyYJFOGTIFEXHN4504-01-87 06:17:008.4[facility] HermannHEMATOLOGY 2018-03-27 06:17:0014.7[facility] YcdwsspHTXQBYCBZA9699-58-09 06:17:0072.0[facility] FyhmzfbGWEACGTIIP4488-35-53 06:17:001.0[facility] MehcagbLZCVQISHJT4104-65-99 06:17:009.7[facility] HqokprjQLVRZPIFXT6195-30-76 06:17:002.6[facility] UPGGNWGWQR8311-46-59 06:17:000.9[facility] BqkwtbgRPYZQFFCVM4016-13-60 06:17:000.6 [facility] CbuhbarSETHYHHVNM5224-18-19 06:17:004.2[facility] HermannHEMATOLOGY 2018-03-27 06:17:000.1[facility] DopdbvbHFTGUZOEBW1718-21-50 06:17:000.2[facility] RrcamsiMWJEJBUYRB0079-18-61 06:17:009.0[facility] WjycujhHILNGQZYMZ1016-78-09 06:17:04343Tsozgeeo NfyuqtzXAIYRTXOCF2119-72-09 06:17:0013.4[facility] XWLVULMEYI8846-41-69 06:17:005.8[facility] XethzryMTCVMGQMWA5489-87-46 06:17:00 2.69[facility] OstlbbkKCWNTZDCVH5879-61-65 06:17:00 Test Item Value Reference Range Interpretation Comments MCH (test code = MCH) 29.8 pg 27.0-31.0 [facility] DdxkzrgACADFNLHZW8740-22-84 06:17:0086.4[facility]annHEMATOLOGY 2018-03-27 06:17:0023.2[facility] CnfksibCGHWNFNMER5936-45-89 06:17:008.0[facility] CxwngkwQATLKAUNYT1327-15-00 06:17:0034.5[facility] MgzmczsBXHNZXYEJI8218-25-64 06:17:00Negative *NA*(03/27/18 1:17 AM)[facility] OrsprpePFAHFBNBDT4063-12-67 06:17:00Non-Reactive (03/27/18 1:17 AM)[facility] HewnmdrNRXZBJTTOZ2455-08-94 06:17:00Negative *NA*(03/27/18 1:17 AM)[facility] FjfyssdHUMEBBUZDH5174-65-79 06:17:00Negative *NA*(03/27/18 1:17 AM)[facility] RiwnhenYGLOLVOZZX5416-59-08 06:17:00Negative *NA*(03/27/18 1:17 AM)[facility] ToxneomKZEOTNPZMX2655-21-51 06:17:00Negative *NA*(03/27/18 1:17 AM)[facility] GdyrseiGJVOYQYQWN8405-41-62 06:17:00Negative *NA*(03/27/18 1:17 AM)[facility] HermannCARDIAC BEDSAPQ6868-33-82 20:03:69829Pirlucmu HermannCHEM OOZNA3894-43-87 08:05:005.6[facility] HermannCHEM YWULX4657-12-37 08:05:001.9[facility] ScvtirbFKPFNAATGO9324-91-84 08:05:000.5 [facility] JvwlfngXCCDBFHFDY2850-96-82 08:05:000.7[facility]annHEMATOLOGY 2018-03-26 08:05:002.3[facility] YhhtbhzQJBOLJMNNR6305-10-98 08:05:000.9[facility] JoaqncfSLUVDTNJHA2671-01-12 08:05:003.7[facility] ZxniqrkUNZMOYLNGM9296-63-00 08:05:0069.2[facility] OjykmgsKTHQZRHCJW7886-14-84 08:05:0010.1[facility] VEDJSLNPST7372-30-22 08:05:0017.7[facility] WgzjhjqIGBIKNBSXQ6934-29-78 08:05:00 0.1[facility] CxjokonIAUYOMRIQN8601-30-31 08:05:008.9[facility]annHEMATOLOGY 2018-03-26 08:05:45722Xdwuuopv OmnwntlRXGTLAPARA0178-76-42 08:05:00 Test Item Value Reference Range Interpretation Comments MCH (test code = MCH) 29.8 pg 27.0-31.0 [facility] TixzmokWUYVHYQPHL8347-99-34 08:05:0085.5[facility]annHEMATOLOGY 2018-03-26 08:05:0013.0[facility] CdehdcmIPSIAMVLJZ9184-47-73 08:05:0034.9[facility] QilsxkwKJVJZLZHFW8879-14-36 08:05:0022.9[facility] JbykpiuKHMUUAEDIY8565-91-65 08:05:008.0[facility] MifbnfmBDCOUNSUKB5393-39-15 08:05:002.68[facility] OFJYPKUTUO8419-97-90 08:05:005.3[facility] HermannCHEM ZCSGM3677-72-90 08:18:001.6 [facility] MzixhljRKWSOKZEKF9237-23-89 08:18:003.9[facility]annHEMATOLOGY 2018-03-25 08:18:000.2[facility] IcnudpeKBSKUGUSEF0398-95-70 08:18:000.6[facility] RqcgwdsEKSTPEQGTK3866-31-45 08:18:000.9[facility] VfavqqbBWVEALWIVM7461-92-62 08:18:000.7[facility] SbtzjnvFJPXWABFWT1038-35-58 08:18:0069.1[facility] NHTKMBCHZN8124-02-19 08:18:0010.6[facility] HuedobaGJCDOYIEJY9850-73-09 08:18:00 2.7[facility] AekgdwvDIJOFTABBT3639-08-68 08:18:0016.9[facility]annHEMATOLOGY 2018-03-25 08:18:005.6[facility] KmnusspAJXVFDZRGT8681-16-85 08:18:008.1[facility] IooadqlJCVURUAPUE6375-46-48 08:18:002.68[facility] RcgrsvzRNLVPVBJLJ2798-72-59 08:18:0085.7[facility] AhztstkFOAIBSRSKE1956-37-68 08:18:00 Test Item Value Reference Range Interpretation Comments MCH (test code = MCH) 30.1 pg 27.0-31.0 [facility] LnypprxZYCXVXZMTC0312-16-39 08:18:0035.2[facility]annHEMATOLOGY 2018-03-25 08:18:0023.0[facility] GozaeqzGUOCKOUQEQ5699-31-41 08:18:0013.3[facility] OerjclbZCPEZPWLRS7689-58-52 08:18:55002Xsweikrm DhjvizdVEYLXPFQIL1052-22-06 08:18:009.0[facility] HermannPARATHYROID VHFVPXM8632-58-41 08:18:001.07[facility] HermannPARATHYROID IGDQRGI7992-63-44 08:18:001.14[facility]annCHEM PANEL 2018-03-24 10:28:001.7[facility] HermannPARATHYROID HNTTDPJ4377-79-73 10:28:001.06 [facility]annPARATHYROID YUUPDQC1221-54-23 10:28:001.09[facility] HSGHSIUHNEIEX4247-71-59 19:11:000.118[facility]annPARATHYROID PROFILE 2018-03-23 08:06:001.09[facility] HermannPARATHYROID FITRRMH2687-01-76 08:06:00 1.04[facility] HermannBACTERIAL - UZOTIQYG8480-58-05 10:41:00Negative (03/22/18 5:41 AM)[facility] HermannCHEM LXJON2320-59-85 10:41:00 Test Item Value Reference Range Interpretation Comments B/C Ratio (test code = B/C Ratio) 7 1 6- [facility]annCHEM ULWTY6315-96-01 10:41:003.8[facility] PANEL 2018-03-22 10:41:00 Test Item Value Reference Range Interpretation Comments A/G Ratio (test code = A/G Ratio) 0.8 1 0.7-1.6 [facility] YAVKF5129-57-62 10:41:0011Me[facility]CHE[facility] 2018-03-22 10:41:000.2[facility]udaCHEM [id number] 10:41:0069MeFaith Community HospitalCHEM [id number] 10:41:007.0[facility] CenterCHEM [id number] 10:41:0021[facility] CenterCHEM [id number] 10:41:003.2[facility] [id number] 10:41:00 Test Item Value Reference Range Interpretation Comments Aldos/Renin Ratio 4.0 1 See_Comment [Automate d message] The (test code = system which ge nerated this Aldos/Renin Ratio) result tr ansmitted reference range : <=30.0. The reference r ayse was not used to interpr et this result as vaughn l/abnormal. [facility]pmpZRDPZHEICZXMV5744-08-06 10:41:001.095[facility] XREAGJQUJHKLD0477-55-33 10:41:004.4[facility] HospitalRcfatfyMOUVUGAKFU8308-58-44 10:41:00 Test Item Value Reference Range Interpretation Comments PTT (test code = PTT) 30.8 s 22.9-35.8 [facility] HospitalHizegziZLKXQZIBSA9161-80-24 10:41:00 Test Item Value Reference Range Interpretation Comments INR (test code = INR) 1.16 1 0.85-1.17 [facility] HospitalSneiqnlRFAYUNPFPM0658-45-31 10:41:00 Test Item Value Reference Range Interpretation Comments PT (test code = PT) 14.8 s 12.0-14.7 [facility]IoxqzolJIMYDNAGTD4633-57-02 10:41:000.1[facility] BudaAbqeblkUWRKCB2981-05-25 10:41:00 Test Item Value Reference Range Interpretation Comments CHD Risk (test code = CHD Risk) 6.04 1 4.00-7.30 [facility] QoqsaxvGMZXNN4473-46-87 10:41:0057[facility] RwswditQIRWEZ6053-41-43 10:41:0024[facility] QezcnbjFHOWOR5403-05-32 10:41:27684Ukghdsxd HermannLIPIDS 2018-03-22 10:41:07933Xcvawmxq XruwldrEVRMPG2688-72-12 10:41:00 Test Item Value Reference Range Interpretation Comments VLDL (test code = VLDL) 64 1 [facility]annSPECIAL [id number] 10:41:005.2[facility]ann[facility] [id number] 10:41:0085[facility]ann[facility] [id number] 10:41:0055[facility]annUR[facility] [id number] 10:41:000.2[facility] [id number] 10:41:0072.8[facility] HermannCHEM [id number] 07:20:74309Beaelaut Pineda [id number] 07:20:00Negative *NA*(03/22/18 2:20 AM)[facility] [id number] 07:20:0050.80[facility] [id number] 07:20:29177.5 [facility] [id number] 07:20:00 Test Item Value Reference Range Interpretation Comments U Prot/Creat (test code = U 3.08 1 Prot/Creat) [facility] [id number] 07:20:0050.80[facility] CHEM 2018-03-22 07:20:0079[facility] [id number] 07:20:0010.1[facility] [id number] 07:20:12317Fgmilcvf HermannURINE AND [id number] 05:21:54Yellow *NA*(03/22/18 12:21 AM)[facility] AND [id number] 05:21:54Clear (03/22/18 12:21 AM)[facility] AND [id number] 05:21:54 Test Item Value Reference Range Interpretation Comments UA Spec Grav (test code = UA Spec 1.025 1 Grav) [facility] [id number] 05:21:54Negative (03/22/18 12:21 AM) [facility] [id number] 05:21:54Negative *NA*(03/22/18 12:21 AM)[facility] AND [id number] 05:21:54Negative *NA*(03/22/18 12:21 AM)[facility] AND [id number] 05:21:540.2[facility] AND [id number] 05:21:54Negative (03/22/18 12:21 AM)[facility] [id number] 05:21:54Negative (03/22/18 12:21 AM)[facility] AND [id number] 05:21:54Moderate *ABN*(03/22/18 12:21 AM)[facility] AND [id number] 05:21:54Performed (03/22/18 12:21 AM)[facility] AND [id number] 05:21:54None Seen (03/22/18 12:21 AM)[facility] AND [id number] 05:21:54 Test Item Value Reference Range Interpretation Comments UA pH (test code = UA pH) 5.5 1 5.0-8.0 [facility] [id number] 05:21:54None Seen (03/22/18 12:21 AM) [facility]annCARDIAC [id number] 03:42:0010.1[facility] HermannCARDIAC [id number] 03:42:00 Test Item Value Reference Range Interpretation Comments CK MB Index (test 1.9 1 See_Comment [Automate d message] The code = CK MB Index) system [facility] generated this result transmit manuel reference range : <=2.5. The reference range was not used to interpr et this result as vaughn l/abnormal. [facility]annCARDIAC [id number] 03:42:50787Xmizoklp [facility] PANEL 2018-03-22 03:42:001.1[facility]
--- NOTE | 2021-01-28 13:22 | RAD REPORT ---
EXAM DESCRIPTION: RAD - Chest Single View - 01/28/2021 1:13 pm CLINICAL HISTORY: CHEST PAIN Chest pain. COMPARISON: Chest Single View dated 09/13/2019; Chest Single View dated 07/31/2019; Chest Pa And Lat (2 Views) dated 07/30/2019; Chest Pa And Lat (2 Views) dated 07/29/2019 FINDINGS: Portable technique limits examination quality. The lungs are grossly clear. The heart is mildly prominent in size. No displaced fractures. IMPRESSION: No acute intrathoracic process suspected.
[2021-01-28 13:32] LABS: Protime INR 1.09
[2021-01-28 13:37] LABS: ALT/SGPT 14 U/L (12-78); AST/SGOT 8 U/L (15-37); Albumin 3.5 g/dL (3.4-5.0); Alkaline Phosphatase 69 U/L (45-117); BUN Blood Urea Nitrogen 55 mg/dL (7-18); Bicarbonate 27 mmol/L (21-32); Bilirubin Direct < 0.1 mg/dL (0-0.2); Bilirubin Total 0.3 mg/dL (0.2-1.0); Glucose Level 118 mg/dL (74-106); Magnesium 2.2 mg/dL (1.8-2.4); NT PRO-BNP 2464 pg/mL (<125); Potassium 4.2 mmol/L (3.5-5.1); Protein, Total 7.6 g/dL (6.4-8.2); Sodium Level 138 mmol/L (136-145); Troponin (Emerg Dept Use Only) < 0.02 ng/mL (0.0-0.045)
[2021-01-28 13:39] LABS: CKMB Creatine Kinase MB 2.8 ng/mL (1.0-3.6)
[2021-01-28 13:42] LABS: Absolute Lymphocytes (CBC) 0.8 K/uL (0.7-4.9); Basophils % 0.5 % (0-1.3); Hematocrit 31.8 % (39.6-49.0); Lymphocytes % 14.4 % (15.3-44.8); MPV 8.2 fL (7.6-11.3); RBC Red Blood Cell Count 3.26 M/uL (4.33-5.43)
--- NOTE | 2021-01-28 15:35 | RAD REPORT ---
EXAM DESCRIPTION: MRI - Brain Wo Cont - 01/28/2021 3:25 pm CLINICAL HISTORY: DIZZINESS, weakness, history of TIA COMPARISON: Brain Wo Cont dated 06/21/2016 TECHNIQUE: Sagittal T1-weighted images were obtained along with axial PD, heavily T2-weighted and T2 -FLAIR images. Axial DWI and ADC mapping sequences were also obtained along with coronal heavily T2-w eighted images. FINDINGS: No intracranial hemorrhage, mass or acute infarction. There is no edema or shift of midlin e structures. No extra-axial fluid collections. Caal-matter/white matter junction is preserved. Signa l voids are seen as a normal finding in the major intracranial vessels. No measurable atrophy or golf club assembler pamela ischemic change. Ventricles are normal. No globe or orbital content abnormality. No sella or supra sella abnormality. No tonsillar ectopia. Mastoid air cells and paranasal sinuses are clear. IMPRESSION: Negative non-contrast MRI of the Brain for acute or significant finding.
--- NOTE | 2021-01-28 17:45 | EDPHYS ---
Physician Documentation [facility] Name: Undrarayna White Age: 50 yrs Sex: Male : 1970 Arrival Date: 01/28/2021 Time: 12:24 Bed 28 Private MD: ED Physician Trey Mcconnell HPI: 01/28 18:56 This 50 yrs old Black Male presents to ER via EMS with complaints of Lightheaded and kdr dizzy. 18:56 The patient presents with confusion, decreased mental status. Onset: The kdr symptoms/episode began/occurred suddenly, just prior to arrival. Possible causes: The patient had taking a new medication for blood pressure this morning, lisinopril. He had not taken this medication previously and this medication was in addition to his regular blood pressure medicines. Associated signs and symptoms: Pertinent positives: confusion, lightheadedness, weakness, He also complained of bilateral finger tingling and numbness in both hands. Current symptoms: In the emergency department the patient's symptoms have improved, markedly. Patient's baseline: Neuro: alert and fully oriented, Motor: no deficits, Ambulation: walks without assistance, Speech: normal, The patient has a previous history of Renal failure. The patient has not experienced similar symptoms in the past. The patient has not recently seen a physician. Historical: - Allergies: 12:27 Morphine (Vomiting); jd3 - PMHx: 12:27 Hypertension; stage 5 CKD; High Cholesterol; Dialysis; T,T,S; Diabetes - NIDDM; jd3 PERITONEAL DIALYSIS ; not being done now; TIA; - PSHx: 12:27 left upper arm AV fistula; jd3 - Immunization history:: Adult Immunizations up to date, Client reports receiving the 2nd dose of the Covid vaccine, Flu vaccine is up to date. - Social history:: Smoking status: Patient denies any tobacco usage or history of. ROS: 18:56 Constitutional: Negative for fever, chills, and weight loss, Eyes: Negative for injury, kdr pain, redness, and discharge, ENT: Negative for injury, pain, and discharge, Neck: Negative for injury, pain, and swelling, Cardiovascular: Negative for chest pain, palpitations, and edema, Respiratory: Negative for shortness of breath, cough, wheezing, and pleuritic chest pain, Abdomen/GI: Negative for abdominal pain, nausea, vomiting, diarrhea, and constipation, Back: Negative for injury and pain, : Negative for injury, bleeding, discharge, and swelling, MS/Extremity: Negative for injury and deformity, Skin: Negative for injury, rash, and discoloration, Psych: Negative for depression, anxiety, suicide ideation, homicidal ideation, and hallucinations, Allergy/Immunology: Negative for hives, rash, and allergies, Endocrine: Negative for neck swelling, polydipsia, polyuria, polyphagia, and marked weight changes, Hematologic/Lymphatic: Negative for swollen nodes, abnormal bleeding, and unusual bruising. 18:56 Neuro: Positive for altered mental status, weakness. Exam: 18:56 Constitutional: This is a well developed, well nourished patient who is awake, alert, kdr and in no acute distress. Head/Face: Normocephalic, atraumatic. Eyes: Pupils equal round and reactive to light, extra-ocular motions intact. Lids and lashes normal. Conjunctiva and sclera are non-icteric and not injected. Cornea within normal limits. Periorbital areas with no swelling, redness, or edema. Neck: Trachea midline, no thyromegaly or masses palpated, and no cervical lymphadenopathy. Supple, full range of motion without nuchal rigidity, or vertebral point tenderness. No Meningismus. Chest/axilla: Normal chest wall appearance and motion. Nontender with no deformity. No lesions are appreciated. Cardiovascular: Regular rate and rhythm with a normal S1 and S2. No gallops, murmurs, or rubs. Normal PMI, no JVD. No pulse deficits. Respiratory: Lungs have equal breath sounds bilaterally, clear to auscultation and percussion. No rales, rhonchi or wheezes noted. No increased work of breathing, no retractions or nasal flaring. Abdomen/GI: Soft, non-tender, with normal bowel sounds. No distension or tympany. No guarding or rebound. No evidence of tenderness throughout. Back: No spinal tenderness. No costovertebral tenderness. Full range of motion. Skin: Warm, dry with normal turgor. Normal color with no rashes, no lesions, and no evidence of cellulitis. MS/ Extremity: Pulses equal, no cyanosis. Neurovascular intact. Full, normal range of motion. Neuro: Awake and alert, GCS 15, oriented to person, place, time, and situation. Cranial nerves II-XII grossly intact. Motor strength 5/5 in all extremities. Sensory grossly intact. Cerebellar exam normal. Normal gait. Psych: Awake, alert, with orientation to person, place and time. Behavior, mood, and affect are within normal limits. Vital Signs: 12:30 BP 94 / 54; Pulse 72; Resp 17 S; Temp 97.9(TE); Pulse Ox 98% on R/A; Weight 151.95 kg jd3 (R); Height 6 ft. 1 in. (185.42 cm) (R); Pain 7/10; 13:49 BP 107 / 65; Pulse 71; Resp 16 S; Pulse Ox 97% on R/A; jd3 14:17 BP 103 / 67; Pulse 71; Resp 15 S; Pulse Ox 97% on R/A; jd3 15:46 BP 105 / 64; Pulse 65; Resp 17 S; Pulse Ox 97% on R/A; jd3 16:47 BP 100 / 71; Pulse 66; Resp 17 S; Pulse Ox 96% on R/A; jd3 18:18 BP 122 / 79; Pulse 79; Resp 17 S; Pulse Ox 96% on R/A; jd3 12:30 Body Mass Index 44.20 (151.95 kg, 185.42 cm) jd3 MDM: 17:44 Patient medically screened. kdr 19:00 Data reviewed: vital signs, nurses notes, old medical records, radiologic studies. kdr Counseling: I had a detailed discussion with the patient and/or guardian regarding: the historical points, exam findings, and any diagnostic results supporting the discharge/admit diagnosis, lab results, radiology results, the need for outpatient follow up. 01/28 12:33 Order name: Basic Metabolic Panel; Complete Time: 14:00 [facility] 01/28 12:33 Order name: CBC with Diff; Complete Time: 14:00 [facility] 01/28 12:33 Order name: LFT's; Complete Time: 14:00 [facility] 01/28 12:33 Order name: Magnesium; Complete Time: 14:00 [facility] 01/28 12:33 Order name: NT PRO-BNP; Complete Time: 14:00 [facility] 01/28 12:33 Order name: PT-INR; Complete Time: 14:00 [facility] 01/28 12:33 Order name: Troponin (emerg Dept Use Only); Complete Time: 14:00 jd3 08 12:37 Order name: Amylase, Serum; Complete Time: 14:00 kdr 01/28 12:37 Order name: Blood Culture Adult (2) kdr 01/28 12:37 Order name: CPK; Complete Time: 14:00 kdr 01/28 12:37 Order name: Ckmb; Complete Time: 14:00 kdr 01/28 12:37 Order name: Lactate; Complete Time: 14:00 kdr 01/28 12:37 Order name: Lipase; Complete Time: 14:00 kdr 01/28 12:37 Order name: Procalcitonin; Complete Time: 14:00 kdr 01/28 12:33 Order name: XRAY Chest (1 view); Complete Time: 14:00 jd3 01/28 12:33 Order name: EKG; Complete Time: 12:34 jd3 01/28 12:33 Order name: Cardiac monitoring; Complete Time: 12:33 jd3 01/28 12:33 Order name: EKG - Nurse/Tech; Complete Time: 13:10 jd3 01/28 12:33 Order name: IV Saline Lock; Complete Time: 13:10 jd3 01/28 12:33 Order name: Labs collected and sent; Complete Time: 13:10 jd3 01/28 12:33 Order name: O2 Per Protocol; Complete Time: 12:33 jd3 01/28 12:33 Order name: O2 Sat Monitoring; Complete Time: 12:33 jd3 01/28 12:37 Order name: Ptt, Activated; Complete Time: 14:00 kdr 01/28 12:37 Order name: Accucheck; Complete Time: 14:19 kdr 01/28 12:37 Order name: IV Saline Lock - Large Bore; Complete Time: 13:10 kdr 01/28 14:00 Order name: VS Recheck; Complete Time: 14:18 kdr 01/28 14:03 Order name: MRI - Brain Wo Cont; Complete Time: 17:21 kdr Administered Medications: No medications were administered Disposition Summary: 01/28/21 17:44 Discharge Ordered Location: Home kdr Problem: new kdr Symptoms: have improved kdr Condition: Stable kdr Diagnosis - Weakness kdr - Idiopathic hypotension kdr - Hypotension, unspecified kdr Followup: kdr - With: Private Physician - When: 2 - 3 days - Reason: If symptoms return, Further diagnostic work-up, Recheck today's complaints, Continuance of care, Re-evaluation by your physician Discharge Instructions: - Discharge Summary Sheet kdr - Hypotension kdr - Weakness kdr - Fatigue kdr - How to Take Your Blood Pressure, Nxjj-wf-Ophi kdr - Hypotension, Fmmw-zf-Sbbx kdr Forms: - Medication Reconciliation Form kdr - Thank You Letter kdr Signatures: Dispatcher [employer] Trey Trotter MD MD kdr Milan Diego RN RN jd3
--- NOTE | 2021-01-28 17:45 | ER ---
Nurse's Notes [facility] Name: Hilaria White Age: 50 yrs Sex: Male : 1970 Arrival Date: 01/28/2021 Time: 12:24 Bed 28 [facility] MD: Diagnosis: Weakness;Idiopathic hypotension;Hypotension, unspecified Presentation: 01/28 12:24 Chief complaint: EMS states: "pt was at dialysis today and reported about an hour into jd3 dialysis today that he was feeling light headed and having the feeling of being high. the dialysis center reported that about 1L was taken off. pt also reported taking lisinopril for the first time today. pt reported taking in the past, but has been many years and he has never had this reaction.". Coronavirus screen: At this time, the client does not indicate any symptoms associated with coronavirus-19. Ebola Screen: Patient negative for fever greater than or equal to 101.5 degrees Fahrenheit, and additional compatible Ebola Virus Disease symptoms. Initial Sepsis Screen: Does the patient meet any 2 criteria? No. Patient's initial sepsis screen is negative. Does the patient have a suspected source of infection? No. Patient's initial sepsis screen is negative. Risk Assessment: Do you want to hurt yourself or someone else? Patient reports no desire to harm self or others. Onset of symptoms was January 28, 2021. 12:24 Method Of Arrival: EMS: [facility] jd3 12:24 Acuity: YESENIA 3 jd3 Historical: - Allergies: 12:27 Morphine (Vomiting); jd3 - PMHx: 12:27 Hypertension; stage 5 CKD; High Cholesterol; Dialysis; T,T,S; Diabetes - NIDDM; jd3 PERITONEAL DIALYSIS ; not being done now; TIA; - PSHx: 12:27 left upper arm AV fistula; jd3 - Immunization history:: Adult Immunizations up to date, Client reports receiving the 2nd dose of the Covid vaccine, Flu vaccine is up to date. - Social history:: Smoking status: Patient denies any tobacco usage or history of. Screenin:32 Abuse screen: Denies threats or abuse. Nutritional screening: No deficits noted. jd3 Tuberculosis screening: No symptoms or risk factors identified. Fall Risk Ambulatory Aid- None/Bed Rest/Nurse Assist (0 pts). Gait- Normal/Bed Rest/Wheelchair (0 pts) Mental Status- Oriented to own ability (0 pts). Total Leon Fall Scale indicates No Risk (0-24 pts). Assessment: 12:31 General: Appears in no apparent distress. comfortable, Behavior is calm, cooperative, jd3 appropriate for age. Pain: Complains of pain in back Quality of pain is described as aching. Neuro: Level of Consciousness is awake, alert, obeys commands, Oriented to person, place, time, situation, Fruit Picker are equal bilaterally Moves all extremities. Full function Gait is steady, Speech is normal, Facial symmetry appears normal, Pupils are PERRLA, Intact Reports feeling light headed. Cardiovascular: Capillary refill < 3 seconds Patient's skin is warm and dry. Rhythm is regular. Respiratory: Airway is patent Respiratory effort is even, unlabored, Respiratory pattern is regular, symmetrical, Denies cough, shortness of breath. GI: No signs and/or symptoms were reported involving the gastrointestinal system. : No signs and/or symptoms were reported regarding the genitourinary system. EENT: No signs and/or symptoms were reported regarding the EENT system. Derm: Skin is intact, Skin is dry, Skin is normal, Skin temperature is warm. Musculoskeletal: Circulation, motion, and sensation intact. Range of motion: intact in all extremities. 13:48 Reassessment: Patient appears in no apparent distress at this time. No changes from jd3 previously documented assessment. Patient and/or family updated on plan of care and expected duration. Pain level reassessed. Patient is alert, oriented x 3, equal unlabored respirations, skin warm/dry/pink. 15:46 Reassessment: Patient appears in no apparent distress at this time. No changes from jd3 previously documented assessment. Patient and/or family updated on plan of care and expected duration. Pain level reassessed. Patient is alert, oriented x 3, equal unlabored respirations, skin warm/dry/pink. 16:50 Reassessment: Patient appears in no apparent distress at this time. Patient and/or jd3 family updated on plan of care and expected duration. Pain level reassessed. Patient is alert, oriented x 3, equal unlabored respirations, skin warm/dry/pink. Patient states feeling better. 17:50 Reassessment: Patient appears in no apparent distress at this time. No changes from jd3 previously documented assessment. Patient and/or family updated on plan of care and expected duration. Pain level reassessed. Patient is alert, oriented x 3, equal unlabored respirations, skin warm/dry/pink. even and steady gait. denies any dizziness or light handedness at this time Patient states feeling better. Patient states symptoms have improved. 18:12 Reassessment: Patient appears in no apparent distress at this time. Patient and/or d3 family updated on plan of care and expected duration. Pain level reassessed. Patient is alert, oriented x 3, equal unlabored respirations, skin warm/dry/pink. awaiting ride. Vital Signs: 12:30 BP 94 / 54; Pulse 72; Resp 17 S; Temp 97.9(TE); Pulse Ox 98% on R/A; Weight 151.95 kg jd3 (R); Height 6 ft. 1 in. (185.42 cm) (R); Pain 7/10; 13:49 BP 107 / 65; Pulse 71; Resp 16 S; Pulse Ox 97% on R/A; jd3 14:17 BP 103 / 67; Pulse 71; Resp 15 S; Pulse Ox 97% on R/A; jd3 15:46 BP 105 / 64; Pulse 65; Resp 17 S; Pulse Ox 97% on R/A; jd3 16:47 BP 100 / 71; Pulse 66; Resp 17 S; Pulse Ox 96% on R/A; jd3 18:18 BP 122 / 79; Pulse 79; Resp 17 S; Pulse Ox 96% on R/A; jd3 12:30 Body Mass Index 44.20 (151.95 kg, 185.42 cm) [facility] ED Course: 12:24 Patient arrived in ED. jd3 12:27 Triage completed. jd3 12:31 Arm band placed on. jd3 12:32 Milan Diego, RN is Primary Nurse. jd3 12:32 Patient has correct armband on for positive identification. Bed in low position. Call [facility] light in reach. Side rails up X 1. monitor car operator on. Pulse ox on. NIBP on. 12:36 Trey Mcconnell MD is Attending Physician. kdr 13:13 XRAY Chest (1 view) In Process Unspecified. EDMS 15:24 MRI - Brain Wo Cont In Process Unspecified. EDMS 17:53 No provider procedures requiring assistance completed. jd3 18:46 IV discontinued, intact, bleeding controlled, No redness/swelling at site. Pressure jd3 dressing applied. Administered Medications: No medications were administered Outcome: 17:44 Discharge ordered by . kdr 18:17 Condition: stable jd3 18:17 Discharge instructions given to patient, Instructed on discharge instructions, follow up and referral plans. Demonstrated understanding of instructions, follow-up care. 18:46 Discharged to home ambulatory. jd3 18:46 Patient left the ED. jd3 Signatures: Dispatcher [employer] EDMS Trey Mcconnell MD MD kdr Davies, Jonathon RN RN jd3 Corrections: (The following items were deleted from the chart) 14:09 13:49 Pulse 71bpm; Resp 16bpm; Spontaneous; Pulse Ox 97% RA; jd3 jd3
[2021-01-28 19:01] VITALS: TEMP 97.9
[2021-01-28 19:11] VITALS: O2SAT 96
[2021-01-28 19:13] VITALS: BP 122/79
--- NOTE | 2021-01-29 10:52 | EKG ---
Test Date: 2021-01-28 Test Time: 12:43:00 Oracle Programmer: BALAJI MEASUREMENT RESULTS: Intervals: Rate: 70 AK: 142 QRSD: 98 QT: 416 QTc: 449 [place]: P: 82 AK: 142 QRS: 9 T: 27 INTERPRETIVE STATEMENTS: Sinus rhythm with fusion complexes Nonspecific T wave abnormality Abnormal ECG Compared to ECG 09/12/2019 13:06:05 Fusion complex(es) now present T-wave abnormality now present Left-axis deviation no longer present Electronically Signed On 01-29-21 10:48:32 CDT by Frank Andrews
== END 2021-01-28 18:46 | disposition home or self-care (01) ==
LOC: ER 12:13
DX: I95.0 Idiopathic hypotension (principal); E11.22 Type 2 diabetes mellitus with diabetic chronic kidney disease; I12.0 Hypertensive chronic kidney disease with stage 5 chronic kidney disease or end stage renal disease; N18.5 Chronic kidney disease, stage 5; Z99.2 Dependence on renal dialysis; Z88.5 Allergy status to narcotic agent
CPT/HCPCS: 36415; 70551; 71045; 80048; 80076; 82150; 82550; 82553; 83605; 83690; 83735; 83880; 84145; 84484; 85025; 85610; 85730; 87040; 93005; 99284

== ENCOUNTER 2021-02-20 09:25 | Emergency (ER) | payer OTHER ==
--- OUTSIDE RECORDS SUMMARY | 2021-02-20 09:29 | XMS REPORT | Continuity of Care Document ---
:1970 Author Organization [facility] t Address [address] [place] [address] Care Team Providers Name Role Phone Asked, [...] Expiration Date Sour ce Number MEDICAREMEDICARE PART [id number] 2019 Ms manuel A AND 00:00:00 [facility] [id number] [facility] Condition Condition Condition Status Onset Resolution Last Treating Co mments Source Name Details Category Date Date Treatment Clinician Date SENT BY DR Brennan Active 2018-10-24 Memoria / DIALYSIS 10-24 11:05:00 l SENT BY 00:00: Pineda DR / 00 DIALYSIS Active 10/24/2018 [facility] CHRONIC Diagnosis Active 2018-10-02 Me moria KIDNEY 3-14 14:46:00 l DISEASE, CHRONIC 00:00: Aurelia nn STAGE 5 KIDNEY 00 DISEASE, STAGE 5 Active 09/06/2018 [facility] HYPERKALEM Diagnosis Active 2018-03-27 Memoria IA 03-21 09:26:00 l 00:00: Pineda HYPERKALEM 00 IA Active 8 [facility] DR. Diagnosis Active 2018-03-21 Mem oria REFERRAL 03-21 22:20:00 l 00:00: Pineda REFERRAL 00 Active 03/21/2018 [facility] Acidosis Problem 2018-10-15 Mem oria 12:46:18 l Acidosis William n 10/15/2018 [facility] Chronic Problem 2018-10-15 Manjinder tammy kidney 12:46:18 l disease, Chronic Aurelia nn stage 5 kidney disease, stage 5 10/15/2018 [facility] Hypertensi Problem 2018-10-15 M emoria ve chronic 12:46:18 l kidney Pineda disease Hypertensi with stage ve chronic 5 chronic kidney kidney disease disease or with stage end stage 5 chronic renal kidney disease disease or end stage renal disease 10/15/2018 [facility] 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 disease 10/15/2018 [facility] Personal Problem 2018-10-15 Mem oria history of 12:46:18 l transient Personal Her oliva ischemic history of attack transient (TIA), and ischemic cerebral attack infarction (TIA), and without cerebral residual infarction deficits without residual deficits 10/15/2018 [facility] Hyperkalem Problem 2018-10-15 M emoria ia 12:46:18 l Pineda Hyperkalem ia 10/15/2018 [facility] Anemia in Problem 2018-10-15 Me moria chronic 12:46:18 l kidney Anemia [place] disease in chronic kidney disease 10/15/2018 [facility] snf Problem 2018-10-15 Me moria (current) 12:46:18 l use of Long Pineda oral term hypoglycem (current) ic drugs use of oral hypoglycem ic drugs 10/15/2018 [facility] Hypomagnes Problem 2018-10-15 M emoria emia 12:46:18 l Pineda Hypomagnes emia 9 [facility] Morbid Problem 2018-10-15 Memor ia (severe) 12:46:18 l obesity Morbid Pineda due to (severe) excess obesity calories due to excess calories 10/15/2018 [facility] Hypertroph Problem 2018-10-15 M emoria ic scar 12:46:18 l Pineda Hypertroph ic scar 10/15/2018 [facility] Other Problem 2018-10-15 Memor ia disorders 12:46:18 l of Other Pineda phosphorus disorders metabolism of phosphorus metabolism 10/15/2018 [facility] 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:46:18 l mellitus Type 2 William n with diabetes unspecifie mellitus d diabetic with retinopath unspecifie y without d diabetic macular retinopath edema y without macular edema 10/15/2018 [facility] 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:46:18 l 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 10/15/2018 [facility] Hyperlipid Problem 2018-10-15 M emoria emia, 12:46:18 l unspecifie William n d Hyperlipid emia, unspecifie d 10/15/2018 [facility] Transient Problem Resolve 2018-10-27 M emoria ischemic d 00:00:48 l attack Pineda (disorder) Transient ischemic attack (disorder) Resolved Problem 10/27/2018 [facility] Diabetes Problem Active 2018-10-27 Mem oria mellitus 00:00:48 l (disorder) Diabetes He rmann mellitus (disorder) Active Problem 10/27/2018 not taking meds-taken off meds b/c of "kidney disease" [facility] End stage Problem Active 2018-10-27 Me moria renal 00:00:48 l disease End [place] (disorder) stage renal disease (disorder) Active Problem 10/27/2018 [facility] Hypertensi Problem Active 2018-10-27 M emoria ve 00:00:48 l disorder, Pineda systemic Hypertensi arterial ve (disorder) disorder, systemic arterial (disorder) Active Problem 10/27/2018 [facility] Osteoarthr Problem Active 2018-10-27 M emoria itis 00:00:48 l (disorder) William n Osteoarthr itis (disorder) Active Problem 10/27/2018 [facility] Acute Problem 2018-10-15 Memor ia kidney 12:46:18 l failure Acute Pineda with 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 10/15/2018 [facility] History of Past Illness Condition Condition Condition Status Onset Resolution Last Treating Co mments Source Name Details Category Date Date Treatment Clinician Date End stage Problem 2018-10-27 2018-10-27 Memoria renal 5- 00:00:48 00:00:48 l disease End 17:00: [place] stage 00 renal disease 10/24/2018 10/27/2018 [facility] Hypertensi Problem 2017-062018-10-15 2018-10-15 Memoria ve 0-12 12:46:18 12:46:18 l emergency 03:05: Pineda Hypertensi 37 ve emergency 04/06/2018 10/15/2018 [facility] Allergies, Adverse Reactions, Alerts Allergy Allergy Status Severity Reaction(s) Onset Inactive Treating Comm ents Source Name Type Date Date Clinician Morphine Propensi Active Other (See vomiting Methodi ty to Comments) 12-02 st adverse 00:00: Hospita reaction 00 l s to drug MOPRPHIN DA Active NM 2019-06 [facility] 0-30 Clear 00:00: Benítez 00 [facility] morphine morphine Active Memori a -22 l 00:00: [place] 00 Family History Family Member Diagnosis Comments Start Date Stop Date Source Natural mother Hypertension [facility] Social History Social Habit Start Date Stop Date Quantity Comments Source Alcohol intake 2020-04-05 2020-04-05 Current drinker [facility] 00:00:00 00:00:00 of alcohol Hospital (finding) Social History 2018-03-22 2018-03-22 [facility] 10:01:54 10:01:54 Sex Assigned At [birth year] [facility] Smoking Status Start Date Stop Date Source [facility] smoker [facility] Medications Ordered Filled Start Stop Current Ordering Indication Dosage Frequency Signature Comments Components Source Medication Medication Date Date Medication? Clinician (SIG) Name Name NIFEdipine Yes [facility] (ADALAT [facility]-14 [facility] CC) 60 MG 00:00: Hospita 24 hr 00 l tablet furosemide 2020-0 Yes [facility] (LASIX) 80 4-14 [facility] mg tablet 00:00: Hospita 00 l doxazosin 2020-0 Yes 6mg [facility] (CARDURA) 8 4-14 st MG tablet 00:00: Hospita 00 l gabapentin 0 Yes [facility] (NEURONTIN) [facility]-14 st 300 mg 00:00: Hospita capsule 00 l amoxicillin Yes Method i (AMOXIL) 4-14 st 500 MG 00:00: Hospita capsule 00 l acetaminoph 0 Yes [facility] en-codeine 4-14 st (TYLENOL 00:00: Hospita WITH 00 l CODEINE #3) 300-30 mg per tablet amitriptyli Yes [facility] ne (ELAVIL) 4-14 st 50 MG 00:00: Hospita tablet 00 l NIFEdipine Yes [facility] (ADALAT [facility]-14 [facility] CC) 60 MG 00:00: Hospita 24 hr 00 l tablet furosemide 2020-0 Yes [facility] (LASIX) 80 4-14 [facility] mg tablet 00:00: Hospita 00 l doxazosin 2020-0 Yes 6mg [facility] (CARDURA) 8 4-14 st MG tablet 00:00: Hospita 00 l gabapentin 2020-0 Yes [facility] (NEURONTIN) [facility]-14 [facility] 300 mg 00:00: Hospita capsule 00 l amoxicillin 2020-0 Yes [facility] (AMOXIL) 4-14 st 500 MG 00:00: Hospita capsule 00 l acetaminoph 2020-0 Yes [facility] en-codeine 4-14 st (TYLENOL 00:00: Hospita WITH 00 l CODEINE #3) 300-30 mg per tablet amitriptyli Yes [facility] ne (ELAVIL) 4-14 st 50 MG 00:00: Hospita tablet 00 l gabapentin 2018- Yes Notes: Memor ia 300 MG Oral 4- (Same as: l Capsule 17:04: Neurontin) nicola Oxycodone No 5 mg, Memoria Hydrochlori 09-24 [...] ONCE, Stop date: 09/24/18 9:28:00 CDT ondansetron No Route: IV, Memoria (ANES) 09-24 Drug form: l 14:14: INJ, ONCE, Stop date: 09/24/18 9:14:00 CDT lidocaine No Route: IV, Me moria (ANES) 09-24 Drug form: l 13:44: INJ, ONCE, Stop date: 09/24/18 8:44:00 CDT glycopyrrol No Route: IV, Memoria ate (ANES) 09-24 Drug form: l 13:44: INJ, ONCE, Stop date: 09/24/18 8:44:00 CDT propofol No Route: IV, Mem oria (ANES) 09-24 Drug form: l 13:44: INJ, ONCE, Stop date: 09/24/18 8:44:00 CDT fentaNYL No Route: IV, Mem oria (ANES) 09-24 Drug form: l 13:44: INJ, ONCE, Stop date: 09/24/18 8:44:00 CDT ceFAZolin No Route: IV, Me moria (ANES) 09-24 Drug form: l 13:44: INJ, ONCE, [place] Stop date: 09/24/18 8:44:00 CDT cisatracuri No Route: IV, Memoria um (ANES) 09-24 Drug form: l 13:44: INJ, ONCE, Pineda 00 Stop date: 09/24/18 8:44:00 CDT Sodium No 250 mL, Memoria Chloride 09-24 Rate: To l 0.9% 10:00: prime line Pineda (titrate) 00 and flush 250 mL remaining blood products., Dosing Weight 163.1, kg, Route: IV, Total Volume: 250, Start Date: 09/24/18 5:00:00 CDT, Duration: 30 day, Stop date: 10/24/18 4:59:00 CDT, Replace Every: 24 hr Furosemide Yes Daily, 0 Mem oria 3-28 Refill(s) l 18:55: Pineda 00 Docusate 2017-06 No Notes: Memoria 0-03 [...] [Plavix] 00 30 tab, 0 Refill(s), Pharmacy: [facility] Aspirin 81 2017-06 No 81 mg = 1 Me moria MG Enteric 0-03 tab, PO, l Coated 20:36: Daily, # Pineda Tablet 00 90 tab, 3 Refill(s), Pharmacy: [facility] NIFEdipine 2017-06 Yes 60 mg = 1 Me moria 60 mg oral 0-03 tab, PO, l tablet, 19:22: Q12H, # 60 Herm nicola extended 00 tab, 0 release Refill(s), Pharmacy: [facility] isosorbide 2017-06 Yes 20 mg = 1 Me moria dinitrate 0-03 tab, PO, l 20 mg oral 19:22: TID, # 90 He rmann tablet 00 tab, 0 Refill(s), Pharmacy: [facility] atorvastati 2017-06 Yes 10 mg = 1 M emoria n 10 mg 0-03 tab, PO, l oral tablet 19:22: Bedtime, # Pineda 00 30 tab, 0 Refill(s), Pharmacy: [facility] Hydralazine 2017-06 Yes 50 mg = 1 M emoria Hydrochlori 0-03 tab, PO, l de 50 MG 19:22: Q8H, # 90 Herm nicola Oral Tablet 00 tab, 0 Refill(s), Pharmacy: [facility] carvedilol 2017-06 Yes 12.5 mg = Me moria 12.5 mg 0-03 1 tab, PO, l oral tablet 19:22: Q12H, # 60 Pineda 00 tab, 0 Refill(s), Pharmacy: [facility] calcitriol 2017-06 Yes 0.25 Memoria 0.25 mcg 0-03 microgram, l oral 19:22: PO, Daily, Pineda capsule 00 # 30 caplet, 0 Refill(s), Pharmacy: [facility] polyethylen 2017-06 No 17 gm, PO, Memoria e glycol 0-03 Daily, X 7 l 3350 oral 19:22: day, # 255 He rmann powder for 00 gm, 0 reconstitut Refill(s), ion Pharmacy: [facility] Sodium 2017-06 No 650 mg = 1 Memor ia Bicarbonate 0-03 tab, PO, l 650 MG Oral 19:22: TID, X 30 H ermann Tablet 00 day, # 90 tab, 0 Refill(s), Pharmacy: [facility] sevelamer 2017-06 Yes 800 mg = 1 Me moria carbonate 0-03 tab, PO, l 800 mg oral 19:22: TID-Meals, [place] tablet 00 # 90 tab, 0 Refill(s), Pharmacy: [facility] Calcitriol 2017-06 No Notes: Memor ia 0-03 (Same As: l 19:20: Rocaltrol) Pineda 00 carvedilol 2017-06 No Notes: Memor ia 0-03 Give with l 02:00: food. [place] 00 (Same As: Coreg) isosorbide 2017-06 No 30 mg, Memor ia dinitrate 0-02 Route: PO, l 21:00: Drug form: Pineda 00 TAB, Q8H, Start date: 03/27/18 16:00:00 CDT, Duration: 30 day, Stop date: 04/26/18 8:00:00 CDT isosorbide 2017-06 No Notes: Memor ia dinitrate 0-02 (Same l 18:00: as:Isordil Pineda ) Take on empty stomach/ full glass of water Insulin 2017-06 No 60 Memoria regular 0-02 units) l 12:30: WASTE: F/P [place] - Black; E - Municipal Trash Bin Stable for 28 days at room temperatur e Expires in days from ____Date 2017-06 No 25 gm, 50 Memoria (bolus) IV 0-02 mL, Route: l 12:30: IV, Drug Pineda 00 Form: INJ, Dosing Weight 163.1, kg, ONCE, Start date: 03/27/18 7:30:00 CDT, Stop date: 03/27/18 7:30:00 CDT Kayexalate 2017-06 No Notes: Memor ia 0-02 (sodium l 12:30: polystyren e sulfonate 15 gm/60 ml ESTELLE) Shake well before use. (Same as: Kayexalate , SPS) sevelamer 2017-06 No Notes: Memori a 0-01 Same as: l 13:00: Renvela Pineda 00 [id number] No 25 gm, 50 Memoria (bolus) IV 0-01 mL, Route: l 12:53: IV, Drug [place] 00 Form: INJ, Dosing Weight 163.1, kg, ONCE, Start date: 03/26/18 7:53:00 CDT, Stop date: 03/26/18 7:53:00 CDT Insulin 2017-06 No 60 Memoria regular 0-01 units) l 12:53: WASTE: F/P Pineda 00 - Black; E - Municipal Trash Bin Stable for 28 days at room temperatur e Expires in days from ____Date Kayexalate 2017-06 No Notes: Memor ia 0-01 (sodium l 12:53: polystyren Pineda 00 e sulfonate 15 gm/60 ml ESTELLE) Shake well before use. (Same as: Kayexalate , SPS) Sodium 2017-06 No Notes: Memoria Bicarbonate 0- "Dissolve l 11:50: tablet in Pineda 00 [...] tablet, 14:00: Adalat CC, Herm nicola extended Procardia release XL) Give on empty stomach. Take 1 hour before or 2 hours after meal; "Avoid grapefruit and grapefruit juice". Do not crush Magnesium No Notes: Memori a Sulfate 03-25 WASTE: F/P l 12:20: - Sink; E Pineda - [facility] NIFEdipine No Notes: Memor ia 60 mg oral 9-30 (Same as: l tablet, 04:00: Adalat CC, Herm nicola extended Procardia release XL) Give on empty stomach. Take 1 hour before or 2 hours after meal; "Avoid grapefruit and grapefruit juice". Do not crush Hydralazine No Notes: Manjinder tammy Hydrochlori 9-30 (Same as: l de 50 MG 02:00: Apresoline Her oliva Oral Tablet 00 ) May interfere w/enteral feedings Take With Food. Hydralazine No Notes: Manjinder tammy Hydrochlori 9-29 (Same as: l de 50 MG 21:00: Apresoline Her oliva Oral Tablet 00 ) May interfere w/enteral feedings Take With Food isosorbide No Notes: Memor ia dinitrate 9-29 (Same l 21:00: as:Isordil [place] 00 ) Take on empty stomach/ full glass of water NIFEdipine No Notes: Memor ia 60 mg oral 9-29 (Same as: l tablet, 20:59: Adalat CC, Herm nicola extended 00 Procardia [...] 03-24 Route: PO, l 18:00: Drug form: TAB, TID, Start date: 03/24/18 13:00:00 CDT, Duration: 30 day, Stop date: 04/23/18 9:00:00 CDT Kayexalate No Notes: Memor ia 03-24 (sodium l 17:54: polystyren e sulfonate 30gm powder) (Same as: Kayexalate , SPS) Shake well before use Acetaminoph No Notes: Do M emoria en 03-24 not exceed l 17:22: 4 gm/day. (Same as: Tylenol) Hydralazine No Notes: Manjinder tammy 03-24 (Same as: l 16:06: Apresoline ) May interfere w/enteral feedings Take With Food. Tylenol No Notes: Do Memor ia 03-24 not exceed l 01:41: 4 gm/day. (Same as: Tylenol) Melatonin 3 No Notes: Mnajinder tammy MG Extended 03-23 (Same as: l Release 23:00: Melatonin) Herm Tablet hydrALAZINE No Notes: Manjinder tammy 03-23 (Same as: l 21:00: Apresoline ) May interfere w/enteral feedings. Take With Food isosorbide No Notes: Memor ia dinitrate 03-23 (Same l 14:00: as:Isordil ) Take on empty stomach/ full glass of water hydrALAZINE 2018-0 No 12.5 mg, Me moria 9-28 0.5 tab, l 14:00: Route: PO, Pineda 00 Drug form: TAB, TID, Start date: 03/23/18 9:00:00 CDT, Duration: 30 day, Stop date: 04/21/18 17:00:00 CDT Hydralazine 2018-0 No 1 tab, Manjinder tammy Hydrochlori 03-23 Route: PO, l de 37.5 MG 14:00: Dosing Aurelia Weight Isosorbide 163.1, kg, Dinitrate TID, Start 20 MG Oral date: Tablet 03/23/18 [Bidil] 9:00:00 CDT, Duration: 30 day, Stop date: 04/21/18 17:00:00 CDT heparin 2018-0 No Notes: Memoria - porcine l 13:00: heparin Labetalol 2018-0 No 10 mg, 2 Manjinder tammy 9-28 mL, Route: l 04:53: IV, Drug form: INJ, ABXQ6H, Dosing Weight 163.1, kg, [...] CDT, Stop date: 03/22/18 20:04:00 CDT NIFEdipine 2017- No 60 mg, 1 Mem oria 60 mg oral 03-22 tab, l tablet, 21:50: Route: PO, Herm nicola Drug form: release ERTAB, Daily, Dosing Weight 163.1, kg, Start date: 03/22/18 16:50:00 CDT, Duration: 30 day, Stop date: 04/21/18 9:00:00 CDT, .. Saline No Notes: Memoria Flush 0.9% 03-22 (Same as: l 14:00: BD Posiflush) heparin No Notes: Memoria 03-22 porcine l 13:00: heparin Dextrose No 25 gm, 50 Manjinder tammy 50% Syringe 03-22 mL, Route: l 11:16: IVP, Drug Form: INJ, Dosing Weight 163.1, kg, PRN, PRN Blood Glucose Results, Start date: 03/22/18 6:16:00 CDT, Duration: 30 day, Stop date: 04/21/18 6:15:00 CDT Glucagon No 1 mg, Memoria 03-22 Route: IM, l 11:16: Drug form: PDR/INJ, PRN, Dosing Weight 163.1, kg, PRN Blood Glucose Results, Start date: 03/22/18 6:16:00 CDT, Duration: 30 day, Stop date: 04/21/18 6:15:00 CDT Insulin No Notes: Memoria Lispro 03-22 (Same as: l 11:16: Humalog ) Roll in palms of hands [...] 0.9% 03-22 (Same as: l 10:02: BD Posiflush) Nicardipine No Notes: Manjinder tammy 03-22 [...] as: l (Bolus) IV 02:32: Isolyte S He rmann 00 PH 7.4) Albuterol No Notes: SEE Me moria 0.83 MG/ML 27 RT l Inhalant 02:32: DOCUMENTAT Her oliva Solution 00 ION (Same as: Proventil) Dextrose No 50 gm, 100 Mem oria 50% Syringe 27 mL, Route: l 02:31: IV, Drug [place] 00 Form: INJ, Dosing Weight 165.909, kg, ONCE, Start date: 03/21/18 21:31:00 CDT, Stop date: 03/21/18 21:31:00 CDT Insulin No 60 Memoria regular 9-27 units) l 02:31: WASTE: F/P [place] 00 - Black; E - Municipal Trash Bin Stable for 28 days at room temperatur e Expires in days from ____Date Vital Signs Vital Name Observation Time Observation Value Comments Source Systolic blood 2020-12-02 21:18:00 196 mm[Hg] [facility] pressure Diastolic blood 2020-12-02 21:18:00 127 mm[Hg] [facility] pressure Heart rate 2020-12-02 20:16:00 77 /min [facility] Body temperature 2020-12-02 20:16:00 36.39 [facility] Body height 2020-12-02 20:16:00 185.4 cm [facility] Body weight 2020-12-02 20:16:00 156.763 kg [facility] BMI 2020-12-02 20:16:00 45.60 kg/m2 [facility] Oxygen saturation in 2020-12-02 20:16:00 97 /min [facility] Arterial blood by Pulse oximetry Temperature Oral (F) 2018-10-24 21:53:00 98 F [facility] [place] Respitory Rate 2018-10-24 21:53:00 Gaurang al Pineda Systolic (mm Hg) 2018-10-24 21:53:00 Manjinder rial [place] Diastolic (mm Hg) 2018-10-24 21:53:00 Mem orial [place] Respitory Rate 2018-10-24 20:25:00 Memori al [place] Respitory Rate 2018-10-24 18:02:00 Memori al [place] Systolic (mm Hg) 2018-10-24 18:02:00 Manjinder rial [place] Diastolic (mm Hg) 2018-10-24 18:02:00 Mem orial [place] Systolic (mm Hg) 2018-10-24 16:58:00 Manjinder rial [place] Diastolic (mm Hg) 2018-10-24 16:58:00 Mem orial [place] Temperature Oral (F) 2018-10-24 16:58:00 98.2 F [facility] [place] Height 2018-10-24 12:06:00 185.42 cm [facility] [place] BMI Calculated 2018-10-24 12:06:00 Memori al [place] Weight 2018-10-24 12:06:00 [facility] [place] Heart Rate 2018-10-24 12:06:00 [facility] [place] Temperature Oral (F) 2018-10-24 12:06:00 97.8 F [facility] [place] Systolic (mm Hg) 2018-09-24 15:27:00 Manjinder rial [place] Diastolic (mm Hg) 2018-09-24 15:27:00 Mem orial [place] Respitory Rate 2018-09-24 15:27:00 Memori al [place] Systolic (mm Hg) 2018-09-24 15:00:00 Manjinder rial [place] Diastolic (mm Hg) 2018-09-24 15:00:00 Mem orial [place] Respitory Rate 2018-09-24 15:00:00 Memori al [place] Respitory Rate 2018-09-24 14:45:00 Memori al [place] Systolic (mm Hg) 2018-09-24 14:45:00 Manjinder rial [place] Diastolic (mm Hg) 2018-09-24 14:45:00 Mem orial [place] Weight 2018-09-24 12:14:00 [facility] [place] BMI Calculated 2018-09-24 12:14:00 Memori al [place] Height 2018-09-24 12:14:00 185.42 cm [facility] [place] Heart Rate 2018-09-24 10:45:00 [facility] [place] BMI Calculated 2018-09-20 18:58:00 Memori al [place] Weight 2018-09-20 18:58:00 [facility] [place] Height 2018-09-20 18:58:00 185.42 cm [facility] [place] Systolic (mm Hg) 2018-03-28 16:35:00 Manjinder rial [place] Diastolic (mm Hg) 2018-03-28 16:35:00 Mem orial [place] Heart Rate 2018-03-28 16:35:00 [facility] [place] Respitory Rate 2018-03-28 16:35:00 Memori al [place] Temperature Oral (F) 2018-03-28 16:35:00 98.1 F [facility] [place] Temperature Oral (F) 2018-03-28 12:35:00 98.2 F [facility] [place] Heart Rate 2018-03-28 12:35:00 [facility] [place] Systolic (mm Hg) 2018-03-28 12:35:00 Manjinder rial [place] Diastolic (mm Hg) 2018-03-28 12:35:00 Mem orial [place] Respitory Rate 2018-03-28 12:35:00 Memori al [place] Temperature Oral (F) 2018-03-28 10:10:00 98.4 F [facility] [place] Respitory Rate 2018-03-28 10:10:00 Memori al [place] Heart Rate 2018-03-28 10:10:00 [facility] [place] Systolic (mm Hg) 2018-03-28 10:10:00 Manjinder rial [place] Diastolic (mm Hg) 2018-03-28 10:10:00 Mem orial [place] BMI Calculated 2018-03-22 09:08:00 Memori al [place] Weight 2018-03-22 09:08:00 [facility] [place] Height 2018-03-22 09:08:00 185.42 cm [facility] [place] BMI Calculated 2018-03-22 00:57:00 Memori al [place] Weight 2018-03-22 00:57:00 [facility] [place] Height 2018-03-22 00:57:00 185.42 cm [facility] Pined[place] Procedures Procedure Date / Time Performed Performing Clinician [facility] e Eye reconstruction [facility] Herm nicola Hernia repair [facility] Pined[place] Knee joint operation [facility] Plan of Care Planned Activity Planned Date Details Comments Source Future Scheduled Test DIABETES: [facility]INAL EYE [facility] EXAM [code = DIABETES: RETINAL EYE EXAM] Future Scheduled Test DIABETIC FOOT EXAM [facility] [code = DIABETIC FOOT EXAM] Future Scheduled Test COVID-19 VACCINE (1) [facility] [code = COVID-19 VACCINE (1)] Future Scheduled Test Hepatitis C screening [facility] (procedure) [code = 268466910] Future Scheduled Test INFLUENZA VACCINE [facility] [code = INFLUENZA VACCINE] Future Scheduled Test DIABETES: RETINAL EYE [facility] EXAM [code = DIABETES: RETINAL EYE EXAM] Future Scheduled Test DIABETIC FOOT EXAM [facility] [code = DIABETIC FOOT EXAM] Future Scheduled Test COVID-19 VACCINE (1) [facility] [code = COVID-19 VACCINE (1)] Future Scheduled Test Hepatitis C screening [facility] (procedure) [code = 999997669] Future Scheduled Test INFLUENZA VACCINE [facility] [code = INFLUENZA VACCINE] Encounters Start End Encounter Admission Attending Care Care Encounter Source Date/Time Date/Time Type Type Clinicians Facility Department ID 2020-12-07 2020-12-07 Travel [id number] [facility] 00:00:00 00:00:[id number] 3.430.2.7 [id number] Ho spita .[id number] 084.8 l .8 2020-12-07 2020-12-07 Orders Negrete, 1.2.840.1 [id number] [facility] 00:00:00 00:00:00 Only Marie [id number] 3.430.2.7 Hospit a .[id number] l .8 2020-12-07 2020-12-07 Travel [id number] [facility] 00:00:00 00:00:[id number] 3.430.2.7 0.2.7.3.698 Ho spita .[id number] 084.8 l .8 2020-12-07 2020-12-07 Orders Negrete, 1.2.840.1 [id number] 2100 [id number] Methodi 00:00:00 00:00:00 Only Marie [address]48.1.[address] 3.430.2.7 Hospit a .3.671744 l .8 2020-12-03 2020-12-[address], 1.2.840.1 [id number] 2099 [id number] Methodi 00:00:00 00:00:00 Clemente 07615.1.1 991 [facility] 3.430.2.7 Hosp flor .3.021404 l .8 2020-12-03 2020-12-[address], 1.2.840.1 [id number] Methodi 00:00:00 00:00:00 Clemente 03969.1.1 991 [facility] 3.430.2.7 Hosp flor .3.863133 l .8 2020-12-02 2020-12-[address], 1.2.840.1 [id number] 5852 Methodi 15:12:20 16:22:20 Visit Clemente 34053.1.1 401 [facility] 3.430.2.7 Hosp flor .3.209104 l .8 2020-12-02 2020-12-[address], 1.2.840.1 [id number] 004366 6195 Methodi 15:12:20 16:22:20 Visit Clemente 18005.1.1 401 [facility] 3.430.2.7 Hosp flor .3.899067 l .8 2020-12-02 2020-12-02 Travel 1.2.840.1 1.2.932.905 5505 [id number] Methodi 00:00:00 00:00:[address] 3.430.2.7 0.2.7.3.698 Ho spita .3.811642 084.8 l .8 2020-12-02 2020-12-02 Travel 1.2.840.1 1.2.638.555 5596 124935 Methodi 00:00:00 00:00:[address] 3.430.2.7 0.2.7.3.698 Ho spita .3.746858 084.8 l .8 2020-12-01 2020-12-[address], 1.2.840.1 [id number] 2099 [id number] Methodi 00:00:00 00:00:00 Clemente 56556.1.1 034 [facility] 3.430.2.7 Hosp flor .3.231002 l .8 2020-12-01 2020-12-01 Telephone Jonathan, 1.2.840.1 [id number] Methodi 00:00:00 00:00:00 Amelia 23937.1.1 037 [facility] 3.430.2.7 Hosp flor .3.529551 l .8 2020-12-01 2020-12-[address], 1.2.840.1 [id number] 2099 [id number] Methodi 00:00:00 00:00:00 Clemente 99111.1.1 034 [facility] 3.430.2.7 Hosp flor .3.209076 l .8 2020-12-01 2020-12-01 Telephone Jonathan, 1.2.840.1 [id number] 2099 [id number] Methodi 00:00:00 00:00:00 Amelia 91091.1.1 037 [facility] 3.430.2.7 Hosp flor .3.610414 l .8 2020-10-21 2020-10-[address], 1.2.840.1 [id number] 026925 4228 Methodi 14:56:04 15:47:36 Visit Clemente 45417.1.1 666 [facility] 3.430.2.7 Hosp flor .3.974138 l .8 2020-10-21 2020-10-[address], 1.2.840.1 [id number] 3835 Methodi 14:56:04 15:47:36 Visit Clemente 28697.1.1 666 [facility] 3.430.2.7 Hosp flor .3.347696 l .8 2020-10-21 2020-10-21 Travel 1.2.840.1 1.2.510.975 1459 766456 Methodi 00:00:00 00:00:[address] 3.430.2.7 0.2.7.3.698 Ho spita .3.038374 084.8 l .8 2020-10-21 2020-10-21 Travel 1.2.840.1 1.2.752.861 4859 174226 Methodi 00:00:00 00:00:[address] 3.430.2.7 0.2.7.3.698 Ho spita .3.644890 084.8 l .8 2020-09-24 2020-09-24 Telephone [place]end[place], 1.2.840.1 [id number] Methodi 00:00:00 00:00:[address] 3.430.2.7 Hospit a .3.233109 l .8 2020-09-24 2020-09-24 [place], 1.2.840.1 [id number] Methodi 00:00:00 00:00:[address] 3.430.2.7 Hospit a .3.745059 l .8 2020-04-03 2020-04-03 [facility], 1.2.840.1 [id number] 86715 Methodi 00:00:00 00:00:00 Only [place] 52110.1.1 811 s t 3.430.2.7 Hospit a .3.946163 l .8 2020-04-03 2020-04-03 [place] Rendon, 1.2.840.1 [id number] Methodi 00:00:00 00:00:[address] 3.430.2.7 Hospit a .3.792209 l .8 2020-04-03 2020-04-03 [facility] Crum, 1.2.840.1 [id number] 23125 Methodi 00:00:00 00:00:00 Only [place] 55302.1.1 811 s t 3.430.2.7 Hospit a .3.045358 l .8 2020-04-03 2020-04-03 Cristian Oneill.2.840.1 [id number] 21 [id number] Methodi 00:00:00 00:00:[address] 3.430.2.7 Hospit a .3.797393 l .8 2018-10-24 2018-10-24 Emergency [facility] 64431 02277 Memoria 12:02:21 22:12:00 r [place] 02 [facility] 2018-10-24 2018-10-24 Outpatient Vish [facility] [id number] 675 07:02:21 17:12:00 Marissa Soliz 2018-10-24 2018-10-24 Emergency E [facility] [address] [facility] 07:02:00 07:02:00 2018-09-24 2018-09-25 Day [facility] [id number] Memoria 10:19:00 04:59:00 Surgery r [place] 01 [facility] 2018-09-24 2018-09-24 Outpatient [facility] [id number] 05:19:00 23:59:00 Minesh zavala 2018-09-24 2018-09-24 Outpatient [facility] 05:19:00 05:19:00 2018-03-22 2018-03-28 Inpatient [facility] 64189 05826 Memoria 00:55:00 22:26:00 r [place] 00 [facility] 2018-03-21 2018-03-28 Outpatient Johnson [facility] [id number] 675 19:55:00 17:26:00 Camilo Mccracken 00 Results Test Description Test Time Test Comments Results Result Comments Source GLUBED 2020-04-27 05:14:00 Test Item Value Reference Range Interpretation Comme nts GLUBED (test code = GLUBED) 126 MG/DL 70-110 H Performed by certified voyage management system operator at [facility] [id number] 14:58:00 Test Item Value Reference Range Interpretation Comments GLUBED (test code = 115 MG/DL 70-110 H Performe d by certified GLUBED) voyage management system operator at [facility] COVID 19 Asymptomatic IH [id number] 11:18:00 Test Item Value Reference Range Interpretation [...] not done this admission- XR CHEST 2 [id number] 11:16:00 [facility] 1970 Sex: M FAX: Humberto Ness MD [phone] [place]: [address]: REG Name: CHERIE STYLES [facility] : 1970 Age/S: 49/M [address] [place] [address] Bl Unit #: [id number] Loc: [place] [address] Phys: Humberto Tee MD Acct: [id number] Dis Date: Status: [place] [facility] [place]ONE #: [phone] Exam Date: 04/24/2020 1106 FAX #: [phone] Reason: PREOP EXAMS: CPT CODE: [id number] XR CHEST 2 V 32071 EXAM: XR CHEST 2 VIEWS DATE: 04/24/2020 [...] CT chest without contrast is recommended. SL: [id number] at 1116 Reported and signed by: Apryl Almeida D.O. CC: Humberto Tee MD Technologist: Harini Anderson, RT(R) Trnscrd Date/Time/By: 04/24/2020 (1116) : By: [email or web address] Orig Print D/T: S: 04/24/2020 (1120) PAGE 1 Signed ReportBASIC METABOLIC [id number] 11:03:00 Test Item Value Reference Range Interpretation [...] = 7.7 mg/dL 8.0-10.5 L CA) PROTHROMBIN [id number] 10:49:00 Test Item Value Reference Range Interpretation [...] o prevent recurre nt infarct). THROMBOPLASTIN TIME KNUBNSN0802-31-41 10:49:00 Test Item Value Reference Range Interpretation Comments THROMBOPLASTIN TIME 31.1 Seconds 25.0-39.5 N Ther apeutic PARTIAL (test code = Range: 50.4 - 88.3 PTT) Seconds Effective 10/09/2018 CBC W/AUTO [id number] 10:36:00 Test Item Value Reference Range Interpretation [...] REQUIRED (test code = MDIFF) CBC W/AUTO [id number] 10:36:00 Test Item Value Reference Range Interpretation [...] DIFF REQUIRED (test code NO = MDIFF) TXPHUOQYHO3266-35-66 13:13:00Negative *NA*(10/24/18 8:13 AM)[facility] SSUJSAL6694-54-80 13:07:00Negative (10/24/18 8:07 AM)[facility] KUSBHHSVTZCF7201-92-66 13:01:5014.8[facility] FqrlgrrDKGTPGYEFHDV9514-41-85 13:01:507[facility] QpeynlzMJDZPZPHCLIT1437-70-47 13:01:508.2[facility] OJPDVVMXTUGM4858-27-49 13:01:00461Ytrfhabj YzzqnnhDXZZZKEQSFDX6668-43-09 13:01:5074[facility] JbtfsraATUHDJEAVXAL4904-11-48 13:01:509.58[facility] TRIGBCKORROT6257-22-37 13:01:504.8[facility] RbjoxmyIBONODROQPSF6131-57-65 13:01:5021[facility] RzbalroDJXGQSNXBVHV8776-49-27 13:01:67539Ozwjltgr [facility] SDBHGIUFNIIN8947-10-96 13:01:88281Jmhygofv LpyackrTGXGAQBTEW9335-20-19 13:01:50 Test Item Value Reference Range Interpretation Comments INR (test code = INR) 1.05 1 0.85-1.17 [facility] VhcwykcYSGUUYAAQM5153-45-89 13:01:50 Test Item Value Reference Range Interpretation Comments PT (test code = PT) 13.5 s 12.0-14.7 [facility] VidlcczRYLPFXGYMC0539-79-83 13:01:50 Test Item Value Reference Range Interpretation Comments PTT (test code = PTT) 30.3 s 22.9-35.8 [facility] SjwladhDACMOZJHIQ8288-53-83 13:01:508.5[facility] HermannHEMATOLOGY 2018-10-24 13:01:504.2[facility] FjksqaqMSZMSPGYNH1314-81-38 13:01:5014.6[facility] QsbarvsLWFJVXARID6491-02-50 13:01:94777Ulpuszcw HuperipDEJURJCDYF3704-51-08 13:01:5034.0[facility] FizsgjxDYVYLSQYYS7604-92-82 13:01:5085.3[facility] RAOVTTHDQT5088-47-30 13:01:50 Test Item Value Reference Range Interpretation Comments MCH (test code = MCH) 29.0 pg 27.0-31.0 [facility] QjpabomOXVFKDMJGI3282-08-60 13:01:5020.9[facility] HermannHEMATOLOGY 2018-10-24 13:01:507.1[facility] ArgwcyuSDVKNVENKW9300-63-02 13:01:502.45[facility] NultmlmCEGNCENPHW3394-92-99 13:01:500.1[facility] VsrcbjuYWASSNAIIH2786-00-53 13:01:5014.3[facility] YrhkapyQOFSWLYDWK6437-21-05 13:01:5071.6[facility] YSBRKPUDEV9404-07-57 13:01:503.0[facility] NjbvzxfTJUFNPPBUK0123-72-87 13:01:500.4 [facility] QrngpstYKJFBXEVBK6693-14-70 13:01:500.6[facility] HermannHEMATOLOGY 2018-10-24 13:01:500.6[facility] BzttkfiQRTXYETMKY8840-21-65 13:01:502.7[facility] CluitvnAUGIJISRUP5292-40-05 13:01:5010.8[facility] HermannBACTERIAL - SEROLOGY 2018-09-24 11:32:00Negative (09/24/18 6:32 AM)[facility] HermannELECTROLYTES 2018-09-24 11:09:004.4[facility]annBLOOD BANK GDIHTGL1570-12-90 11:05:00 Negative (09/24/18 6:05 AM)[facility] HermannCHEM OLZDQ1079-24-63 11:05:006[facility] HermannCHEM ZREOG1101-39-76 11:05:000.2[facility] HermannCHEM PKERT2429-49-50 11:05:008[facility] HermannCHEM SRBYH2430-95-65 11:05:0064[facility] HermannCHEM SIPMN1802-57-16 11:05:0015[facility] HermannCHEM UNSOI2833-28-16 11:05:004.5 [facility]annCHEM XOMDS5764-32-52 11:05:007.3[facility] HermannCHEM PANEL 2018-09-24 11:05:0020[facility] HermannCHEM USSDK4366-23-72 11:05:003.3[facility] HermannCHEM STMIS3739-23-98 11:05:008.4[facility] HermannCHEM UKXJW8344-51-19 11:05:29433Mcnjscnr HermannCHEM NNZIG1845-78-44 11:05:0010.30[facility] CHEM YKXBG0624-75-36 11:05:29974Qmlhhkah HermannCHEM BNHKM4556-47-04 11:05:13524 [facility] HermannCHEM WSVPJ0541-43-29 11:05:0076[facility] HermannCHEM PANEL 2018-09-24 11:05:00 Test Item Value Reference Range Interpretation Comments A/G Ratio (test code = A/G Ratio) 0.8 1 0.7-1.6 [facility] HermannCHEM FDRDO3585-34-07 11:05:00 Test Item Value Reference Range Interpretation Comments B/C Ratio (test code = B/C Ratio) 7 1 6-25 [facility] HermannCHEM KEPBZ4771-04-65 11:05:004.0[facility] HermannCHEM PANEL 2018-09-24 11:05:0013.5[facility] DzxubylFQBGZJIARB5171-06-58 11:05:001.0[facility] HrvcctvATYQDBYQZD9148-44-81 11:05:000.1[facility] TiekyouGCAEJHRVHE8118-87-46 11:05:000.2[facility] RkzntglAKIJEJKJLO3643-46-84 11:05:000.9[facility] [place] LTZORFWKTU8429-61-80 11:05:002.2[facility] VyyqclqNFEUUVFCFT0050-94-14 11:05:002.0 [facility] KqaqaaoEJPCEOFSUD1852-18-32 11:05:003.2[facility] HermannHEMATOLOGY 2018-09-24 11:05:0016.1[facility] UsyqcbtAZQQWGQAKX3368-44-99 11:05:0042.0[facility] VdmlqnfKGLBCZMDIO1747-83-14 11:05:0038.7[facility] UgiucznLQHJHRBVAI6257-28-68 11:05:00 Test Item Value Reference Range Interpretation Comments PT (test code = PT) 14.5 s 12.0-14.7 [facility] LchwwjkBKASCICZHN0833-67-56 11:05:00 Test Item Value Reference Range Interpretation Comments INR (test code = INR) 1.15 1 0.85-1.17 [facility] AguzoqnXCVZGRYZCK9764-50-31 11:05:00 Test Item Value Reference Range Interpretation Comments PTT (test code = PTT) 31.4 s 22.9-35.8 [facility] SbulupcEXQJBXSFXW2807-12-24 11:05:007.5[facility] HermannHEMATOLOGY 2018-09-24 11:05:0021.9[facility] LksdehoBODYYILDIP1977-74-66 11:05:00 Test Item Value Reference Range Interpretation Comments MCH (test code = MCH) 28.5 pg 27.0-31.0 [facility] OojuocfYIIMMJFXFH0124-78-14 11:05:0034.4[facility] HermannHEMATOLOGY 2018-09-24 11:05:0014.2[facility] XuuaukcULHEVPXWBN6552-35-79 11:05:99424Jcecvukz HlbskqfQMPIRKFUBY8726-10-57 11:05:005.3[facility] QzrlelhYRVPYZKQXL6115-80-45 11:05:0082.8[facility] WvwtovuPRHCPLRKIP0755-03-68 11:05:002.65[facility] SMEGSYIQLI1378-14-54 11:05:008.7[facility] HermannCHEM UEWHL6323-81-95 05:26:005.7 [facility] AsircrmPFUZTGAPGWXB9791-11-25 05:26:99016Sguyycrw HermannELECTROLYTES 2018-03-28 05:26:004.9[facility] AsmxbcgWYVLERAQFCOY8178-11-69 05:26:83188Tauscijc HuirtsxQWSSKZJGSQWN0152-59-34 05:26:58882Okgwrchs UupcprcTZJZOLDEPFLA0990-40-35 05:26:0067[facility] BqyvlskVOMDCPOGJSUB5769-36-32 05:26:008.79[facility] JUIRXVQVEPZF9887-81-21 05:26:0013.9[facility] GdzzdbrYJKUMHZIMNVP9178-77-88 05:26:008.1[facility] HendmszFYYZJBMFSPTN9552-07-74 05:26:0026[facility] LMPPDSBHVNFP9976-83-69 05:26:008[facility] IknyygxDYBGOMKAKX7857-81-80 05:26:00 Negative *NA*(03/28/18 12:26 AM)[facility] HermannPARATHYROID JPAJYRW3491-76-35 05:26:11623.3[facility] HermannPARATHYROID XZCUMPV7368-60-44 18:43:61163.7[facility] HermannCHEM KEUDS1489-44-64 17:20:007[facility] HermannCHEM TXTHF3355-12-59 17:20:0015.4[facility] HermannCHEM ATYDP4082-40-62 17:20:004.4[facility] HermannCHEM PXCRP9353-12-87 17:20:15769Mrzglzsu HermannCHEM JTQLU5575-01-45 17:20:0021 [facility] HermannCHEM GTNMI1535-51-22 17:20:008.6[facility] HermannCHEM PANEL 2018-03-27 17:20:16560Qxhnhbyx HermannCHEM TMHOT7855-05-51 17:20:008.87[facility] HermannCHEM GSXVG3838-52-40 17:20:83684Fzuixdyl HermannCHEM UJNGA5244-83-64 17:20:0064[facility] HermannURINE OQND9032-05-86 17:20:04251.1[facility] URINE GZZW5637-96-96 17:20:740400Zbqustmb HermannURINE NRWO8964-86-24 17:20:0024 (03/27/18 12:20 PM)[facility] HermannURINE HQSF9068-70-91 17:20:501043Cosmztzb HermannCARDIAC PRXDMHH9342-31-14 06:17:43996Oqmvbeoh HermannCHEM THMYD1106-13-70 06:17:005.0[facility] PqocreoCSQDAFZSNOIG2207-92-71 06:17:0014.4[facility] OTPQSUVBSUOQ3468-58-39 06:17:007[facility] WkguwdhCBECQPRIXKKM1949-24-35 06:17:00 122[facility] SoxwyudWZZQVZIHWTTS2622-52-66 06:17:005.4[facility] SYBZLKRMNEUQ9132-25-58 06:17:0071[facility] VxmubzeLUMVWINGBVFG6297-66-92 06:17:00 8.81[facility] PkmfjrgHVBJGLIYCPDM7397-37-35 06:17:20874Skmqcuit [place] ZCDREGXTXRLA0311-54-89 06:17:0020[facility] UwxkgfbQQVLQLGNQKSU8141-97-69 06:17:00 108[facility] GwrpybpXSYHDZTLRZYR9801-71-68 06:17:008.4[facility] HermannHEMATOLOGY 2018-03-27 06:17:0014.7[facility] FseiikhSJJFVCCYRM0523-75-88 06:17:0072.0[facility] AotzxcjQAWBKGDGXG9839-72-90 06:17:001.0[facility] DefohvdWEOHFRPRUK5150-34-78 06:17:009.7[facility] TuumkajNRNIWQIQNS8203-26-78 06:17:002.6[facility] [place] UFCIARDNNJ4785-65-72 06:17:000.9[facility] BxzrcwcCWQWOGINVD4115-32-05 06:17:000.6 [facility] NgdwwdcPCCUDYLGIE6510-39-20 06:17:004.2[facility] HermannHEMATOLOGY 2018-03-27 06:17:000.1[facility] CfclswgEAZFHSBWKW3170-71-39 06:17:000.2[facility] OcopbcuZQAQWWBDAJ1032-87-26 06:17:009.0[facility] NgxlvcnMFAHATMGHV2800-28-43 06:17:51427Lhvlflwh QsefdrzXIEQOITWQA3896-49-33 06:17:0013.4[facility] DWJISTBTAP4000-97-00 06:17:005.8[facility] HhtfigxGJZPPLPGAX5452-07-01 06:17:00 2.69[facility] YgazbfvQPCZNQIBBS3909-44-83 06:17:00 Test Item Value Reference Range Interpretation Comments MCH (test code = MCH) 29.8 pg 27.0-31.0 [facility] OrsjheeZQDXNSYSQI3464-04-73 06:17:0086.4[facility] HermannHEMATOLOGY 2018-03-27 06:17:0023.2[facility] QykpcwkAACHMMPTIQ4223-49-25 06:17:008.0[facility] JprwahrWYYMUCUIHK0503-58-85 06:17:0034.5[facility] XswrmoaBVVPZVHVIX9142-04-11 06:17:00Negative *NA*(03/27/18 1:17 AM)[facility] CbmpjqxOPVCQBUDHH3326-54-41 06:17:00Non-Reactive (03/27/18 1:17 AM)[facility] WvtmzzgOCCCDLLEVZ3549-40-36 06:17:00Negative *NA*(03/27/18 1:17 AM)[facility] ZqpqzfnLKVYGXZAXC5438-54-87 06:17:00Negative *NA*(03/27/18 1:17 AM)[facility] BdouqknPRAUNMAAMP8651-41-08 06:17:00Negative *NA*(03/27/18 1:17 AM)[facility] TjlggkgWCLLFDLZAJ1530-64-53 06:17:00Negative *NA*(03/27/18 1:17 AM)[facility] IkntjrdJGQPXZTKAO2965-34-99 06:17:00Negative *NA*(03/27/18 1:17 AM)[facility] HermannCARDIAC UFPTVPM8469-49-10 20:03:12333Ldvmuwaz HermannCHEM OJQBD1568-06-01 08:05:005.6[facility] HermannCHEM AIIDZ6966-49-83 08:05:001.9[facility] MycqauhHMSDHKVBUF7139-26-61 08:05:000.5 [facility] CrmrbiiMEYYLPOZMQ2093-64-66 08:05:000.7[facility] HermannHEMATOLOGY 2018-03-26 08:05:002.3[facility] UzruzxpWVBAINXHTQ9696-49-18 08:05:000.9[facility] CweyfkxNXFQHUYEZD4069-65-33 08:05:003.7[facility] DctjvkrEHRJCJJHWZ8526-98-45 08:05:0069.2[facility] YorqipzGWXBRBLTYE4964-24-36 08:05:0010.1[facility] UIGBIBBRIX2673-86-31 08:05:0017.7[facility] UcrxxvkQDHIMEHQBB5810-56-77 08:05:00 0.1[facility] LlnotfcZATQMMXGBZ7380-55-97 08:05:008.9[facility] HermannHEMATOLOGY 2018-03-26 08:05:98193Jdtfctxu QxqzbspOUEPZIOMCS6327-57-40 08:05:00 Test Item Value Reference Range Interpretation Comments MCH (test code = MCH) 29.8 pg 27.0-31.0 [facility] XhxkomqXHMXRWVJMJ2650-92-60 08:05:0085.5[facility] HermannHEMATOLOGY 2018-03-26 08:05:0013.0[facility] ChjolesNBREYSWOID7898-07-69 08:05:0034.9[facility] OewmxpjJBIJQTGPMT8841-32-25 08:05:0022.9[facility] IbpuhisIGNEGRARGN2088-94-82 08:05:008.0[facility] LdqfmxlXRLAGJOTQQ5116-74-96 08:05:002.68[facility] CJCJOWGGOH6420-39-20 08:05:005.3[facility] HermannCHEM ZSVLU0234-70-48 08:18:001.6 [facility] ThxtguqVGCEPODUQY3397-13-50 08:18:003.9[facility] HermannHEMATOLOGY 2018-03-25 08:18:000.2[facility] YlhtmarVIJEOYRESC3196-70-33 08:18:000.emorial VbpwnhqNRSKBSXCBN0246-78-42 08:18:000.9[facility] EanxiuuIKZYMGADHQ4088-84-57 08:18:000.7[facility] HvdrwzhUBTTGCAGES5134-48-64 08:18:0069.1[facility] AXOLPVPOFV2522-27-10 08:18:0010.emorial JnjpwxpQRWVJYGWYK0701-10-48 08:18:00 2.7[facility] IolczyqXSOLDTZWGX3768-66-56 08:18:0016.9[facility] HermannHEMATOLOGY 2018-03-25 08:18:005.6[facility] UxxprgrRSPMODOHGF8004-92-24 08:18:008.1[facility] WnrrqfoRILVIOTWBB3979-04-34 08:18:002.68[facility] XeopdgoENLFKKACGH2492-34-92 08:18:0085.7[facility] YfdnayfUAAZONOOJZ2328-90-22 08:18:00 Test Item Value Reference Range Interpretation Comments MCH (test code = MCH) 30.1 pg 27.0-31.0 [facility] PqxzqozBMCVJLKREN8181-90-90 08:18:0035.2[facility] HermannHEMATOLOGY 2018-03-25 08:18:0023.0[facility] EqibpqkZRPOWYDSPF4692-72-63 08:18:0013.3[facility] ZqbnmtfKEMUTPLZTM0628-55-26 08:18:45505Wjoxidoq BkamyhbZRUMZEQKIM3672-85-77 08:18:009.0[facility] HermannPARATHYROID EMCWMHS2535-14-02 08:18:001.07[facility] HermannPARATHYROID TPKKXOP8445-04-36 08:18:001.14[facility] HermannCHEM PANEL 2018-03-24 10:28:001.7[facility] HermannPARATHYROID UPZWMXG8436-07-46 10:28:001.06 [facility] HermannPARATHYROID PGQMJJI6818-39-39 10:28:001.09[facility] ZKBEIROSCDZCZ2244-77-88 19:11:000.118[facility] HermannPARATHYROID PROFILE 2018-03-23 08:06:001.09[facility] HermannPARATHYROID GCJEBAU7566-33-93 08:06:00 1.04[facility] HermannBACTERIAL - JVMQVQGG5652-67-15 10:41:00Negative (03/22/18 5:41 AM)[facility] HermannCHEM TCCBY3346-43-33 10:41:00 Test Item Value Reference Range Interpretation Comments B/C Ratio (test code = B/C Ratio) 7 1 6-25 [facility]annCHEM [id number] 10:41:003.8[facility]annCHEM PANEL 2018-03-22 10:41:00 Test Item Value Reference Range Interpretation Comments A/G Ratio (test code = A/G Ratio) 0.8 1 0.7-1.6 [facility]CHE[facility] [id number] 10:41:0011[facility]annCHEM PANEL 2018-03-22 10:41:000.2[facility]annCHEM EGUPD3543-25-07 10:41:0069[facility]annCHEM KPMKT4576-27-14 10:41:007.0[facility]annCHEM DFOEI7150-28-39 10:41:0021[facility]annCHEM ZDPVW6234-55-63 10:41:003.2[facility] LRWQPDZBWLJXJ0013-39-74 10:41:00 Test Item Value Reference Range Interpretation Comments Aldos/Renin Ratio 4.0 1 See_Comment [Automate d message] The (test code = system which ge nerated this Aldos/Renin Ratio) result tr ansmitted reference range : <=30.0. The reference r ayse was not used to interpr et this result as vaughn l/abnormal. [facility]XroetdnCDMEVWELWMIHE9943-77-76 10:41:001.095[facility] VXRMGSCKJXSGD8979-42-42 10:41:004.4[facility] HospitalSjagwbzELEHDWIDCM1927-78-85 10:41:00 Test Item Value Reference Range Interpretation Comments PTT (test code = PTT) 30.8 s 22.9-35.8 [facility]boENKFYWQAZS8114-44-83 10:41:00 Test Item Value Reference Range Interpretation Comments INR (test code = INR) 1.16 1 0.85-1.17 [facility]YhhftgwAWDQNGNXUR6061-37-31 10:41:00 Test Item Value Reference Range Interpretation Comments PT (test code = PT) 14.8 s 12.0-14.7 [facility]AmdttdaLVOSHMYPYP9103-30-63 10:41:000.1[facility] FvlpfydOQIIAT2752-05-75 10:41:00 Test Item Value Reference Range Interpretation Comments CHD Risk (test code = CHD Risk) 6.04 1 4.00-7.30 [facility] MfgbnphXYXFYW1339-99-23 10:41:0057[facility] JkygkdmNOSHVP4445-44-87 10:41:0024[facility] QkndqbqENLITX1671-34-85 10:41:02701Xmmysqdf HermannLIPIDS 2018-03-22 10:41:90583Nuxczuut DyurborHPNHAT9431-52-44 10:41:00 Test Item Value Reference Range Interpretation Comments VLDL (test code = VLDL) 64 1 [facility]annSPECIAL DXKTJQITT6364-89-12 10:41:005.2[facility]annURINE QRQI1640-71-12 10:41:0085[facility]UR[facility] TDUM1900-14-36 10:41:0055[facility]annUR[facility] IFLH0089-11-67 10:41:000.2[facility]annUR[facility] PTUJ2412-64-07 10:41:0072.8[facility]annCHEM RNWGE9940-69-69 07:20:35001Iclxirnz Pineda WUSOSLQWAJ4940-22-06 07:20:00Negative *NA*(03/22/18 2:20 AM)[facility] AEPC7713-70-65 07:20:0050.80[facility] GHKD0621-80-42 07:20:88747.5 [facility] JJST7021-69-25 07:20:00 Test Item Value Reference Range Interpretation Comments U Prot/Creat (test code = U 3.08 1 Prot/Creat) [facility] WKPT7432-45-55 07:20:0050.80[facility] CHEM 2018-03-22 07:20:0079[facility]UR[facility] VGKU8496-10-98 07:20:0010.1[facility]UR[facility] APBP0461-33-34 07:20:20595Ygmndqvt HermannURINE AND XECAD7400-66-02 05:21:54Yellow *NA*(03/22/18 12:21 AM)[facility] AND [id number] 05:21:54Clear (03/22/18 12:21 AM)[facility] AND FRQYV9177-79-63 05:21:54 Test Item Value Reference Range Interpretation Comments UA Spec Grav (test code = UA Spec 1.025 1 Grav) [facility] [id number] 05:21:54Negative (03/22/18 12:21 AM) [facility] ICDMS4771-86-02 05:21:54Negative *NA*(03/22/18 12:21 AM)[facility] [id number] 05:21:54Negative *NA*(03/22/18 12:21 AM)[facility] AND QTQRZ9394-72-23 05:21:540.2[facility] AND VQYNS6657-70-45 05:21:54Negative (03/22/18 12:21 AM)[facility] CBZWA0085-12-55 05:21:54Negative (03/22/18 12:21 AM)[facility] BCWPN4966-83-58 05:21:54Moderate *ABN*(03/22/18 12:21 AM)[facility] [id number] 05:21:54Performed (03/22/18 12:21 AM)[facility] [id number] 05:21:54None Seen (03/22/18 12:21 AM)[facility] BKMTK5173-99-44 05:21:54 Test Item Value Reference Range Interpretation Comments UA pH (test code = UA pH) 5.5 1 5.0-8.0 [facility] AND AZJUV5309-37-58 05:21:54None Seen (03/22/18 12:21 AM) [facility]annCARDIAC EVZZQEL1856-92-81 03:42:0010.1[facility]annCARDIAC VCLAKJW7415-57-61 03:42:00 Test Item Value Reference Range Interpretation Comments CK MB Index (test 1.9 1 See_Comment [Automate d message] The code = CK MB Index) system w [facility] generated this result transmit manuel reference range : <=2.5. The reference range was not used to interpr et this result as vaughn l/abnormal. [facility]annCARDIAC UHPQCQB0358-45-44 03:42:93771Wdexzixc HermannCHEM PANEL 2018-03-22 03:42:001.1[facility]a
[2021-02-20] MEDS ORDERED: DIPHENOX/ATROP SULF 1 TAB PO ONE (10:05)
--- NOTE | 2021-02-20 11:19 | ER ---
Nurse's Notes [facility] Name: Hilaria White Age: 50 yrs Sex: Male : 1970 Arrival Date: 02/20/2021 Time: : Bed 12 Private MD: Diagnosis: Diarrhea, unspecified Presentation: 02/20 09:33 Chief complaint: Patient states: diarrhea since 1400 yesterday. Episodes every 10 iw minutes. Dialysis nurse told him he had to come in for a covid test. Coronavirus screen: Vaccine status: Patient reports receiving the 2nd dose of the covid vaccine. 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 Ebola Screen: Patient negative for fever greater than or equal to 101.5 degrees Fahrenheit, and additional compatible Ebola Virus Disease symptoms Patient denies exposure to infectious person. Patient denies travel to an Ebola-affected area in the 21 days before illness onset. No symptoms or risks identified at this time. Initial Sepsis Screen: Does the patient meet any 2 criteria? No. Patient's initial sepsis screen is negative. Does the patient have a suspected source of infection? No. Patient's initial sepsis screen is negative. Risk Assessment: Do you want to hurt yourself or someone else? Patient reports no desire to harm self or others. Onset of symptoms was February 19, 2021. 09:33 Method Of Arrival: Ambulatory iw 09:33 Acuity: YESENIA 4 iw Triage Assessment: 09:37 General: Appears in no apparent distress. comfortable, Behavior is calm, cooperative. iw Pain: Denies pain. GI: Reports diarrhea. Historical: - Allergies: 09:37 Morphine (Vomiting); iw - PMHx: 09:37 TIA; stage 5 CKD; Diabetes - NIDDM; Hypertension; Dialysis; T,T,S; iw - Immunization history:: Adult Immunizations up to date, Client reports receiving the 2nd dose of the Covid vaccine. - Social history:: Smoking status: Patient denies any tobacco usage or history of. Screenin:03 Abuse screen: Denies threats or abuse. Nutritional screening: No deficits noted. vg1 Tuberculosis screening: No symptoms or risk factors identified. Fall Risk No fall in past 12 months (0 pts). No secondary diagnosis (0 pts). No IV (0 pts). Ambulatory Aid- None/Bed Rest/Nurse Assist (0 pts). Gait- Normal/Bed Rest/Wheelchair (0 pts) Mental Status- Oriented to own ability (0 pts). Total Leon Fall Scale indicates No Risk (0-24 pts). Assessment: 10:02 General: Appears in no apparent distress. uncomfortable, Behavior is calm, cooperative. vg1 Pain: Denies pain. Neuro: Level of Consciousness is awake, alert, obeys commands, Oriented to person, place, time, situation. Cardiovascular: Patient's skin is warm and dry. Dialysis shunt: in the left arm, with palpable thrill, with auscultated bruit, with no erythema, with no edema, no bleeding noted. Respiratory: Airway is patent Respiratory effort is even, unlabored. GI: Reports diarrhea, flatulence, gaseousness, since yesterday afternoon. Having "episodes every 30 minutes or so." Patient currently denies nausea, vomiting. : No signs and/or symptoms were reported regarding the genitourinary system. EENT: No signs and/or symptoms were reported regarding the EENT system. Derm: Skin is intact, is healthy with good turgor. Musculoskeletal: Circulation, motion, and sensation intact. 10:59 Reassessment: Patient appears in no apparent distress at this time. Patient and/or vg1 family updated on plan of care and expected duration. Pain level reassessed. Patient is alert, oriented x 3, equal unlabored respirations, skin warm/dry/pink. Pt stated 'im feeling a little bit of relief after that mediation they gave me'. Provider notified. Vital Signs: 09:33 BP 161 / 84; Pulse 101; Resp 20; Temp 97.6; Pulse Ox 99% ; Weight 151.95 kg; Height 6 iw ft. 1 in. (185.42 cm); Pain 0/10; 10:03 BP 157 / 85; Pulse 99; Resp 20; Pulse Ox 98% on R/A; vg1 10:59 BP 154 / 84; Pulse 65; Resp 16; Pulse Ox 97% on R/A; vg1 09:33 Body Mass Index 44.20 (151.95 kg, 185.42 cm) iw ED Course: 09:28 Patient arrived in ED. mr 09:28 Merari Telles FNP-C is [facility]. kb 09:28 Cornel Yuan MD is Attending Physician. kb 09:37 Triage completed. iw 09:37 Arm band placed on right wrist. iw 09:44 Bobbi Meza, RN is Primary Nurse. iw 10:03 Patient has correct armband on for positive identification. Call light in reach. vg1 10:23 COVID-19 : Document "Date of Symptom Onset" if Symptomatic. Sent. mh5 10:23 COVID swab sent to lab. mh5 11:32 No provider procedures requiring assistance completed. Patient did not have IV access vg1 during this emergency room visit. Administered Medications: 09:44 Drug: LoMOTIL (diphenoxylate-atropine) 1 tabs Route: PO; iw 10:59 Follow up: Response: No adverse reaction; Marked relief of symptoms vg1 Outcome: 11:18 Discharge ordered by MD. kb 11:32 Discharged to home ambulatory. vg1 11:32 Condition: stable 11:32 Discharge instructions given to patient, Instructed on discharge instructions, follow up and referral plans. Demonstrated understanding of instructions, follow-up care. 11:33 Patient left the ED. vg1 Signatures: Merari Telles, [employer] OPERATOR-Bri Peng mr Bobbi Meza, RN RN Tierra Maynard Frances Toribio RN RN vg1 Corrections: (The following items were deleted from the chart) 09:38 09:37 PMHx: High Cholesterol; iw iw 10:04 10:02 Cardiovascular: Patient's skin is warm and dry. vg1 vg1 10:16 10:02 GI: Reports diarrhea, since yesterday afternoon. Having "episodes every 30 vg1 minutes or so." Patient currently denies nausea, vomiting, vg1
--- NOTE | 2021-02-20 11:19 | EDPHYS ---
Physician Documentation [facility] Name: Undray White Age: 50 yrs Sex: Male : 1970 Arrival Date: 02/20/2021 Time: : Bed 12 Private MD: MALLY Physician Cornel Yuan HPI: 02/20 15:44 This 50 yrs old Black Male presents to ER via Ambulatory with complaints of Covid Test, kb Diarrhea. 15:44 The patient presents to the emergency department with diarrhea. Onset: The kb symptoms/episode began/occurred yesterday. Possible causes: bad food exposure. The symptoms are aggravated by nothing. The symptoms are alleviated by nothing. Associated signs and symptoms: Pertinent positives: diarrhea, Pertinent negatives: abdominal pain, anorexia, belching, constipation, dysuria, fever, flatulence, GI bleeding, hematuria, nausea, vomiting. Severity of symptoms: At their worst the symptoms were moderate in the emergency department the symptoms are unchanged. The patient has experienced similar episodes in the past, a few times. The patient has not recently seen a physician. Patient reports diarrhea started after having a bowl of cereal yesterday. States milk always messes his stomach up. This morning call dialysis clinic and was told he must get a Covid test to be able to return to dialysis due to diarrhea.. Historical: - Allergies: 09:37 Morphine (Vomiting); iw - PMHx: 09:37 TIA; stage 5 CKD; Diabetes - NIDDM; Hypertension; Dialysis; T,T,S; iw - Immunization history:: Adult Immunizations up to date, Client reports receiving the 2nd dose of the Covid vaccine. - Social history:: Smoking status: Patient denies any tobacco usage or history of. ROS: 15:45 Constitutional: Negative for fever, chills, and weight loss. kb 15:45 Abdomen/GI: Positive for diarrhea, Negative for abdominal pain, nausea and vomiting. 15:45 All other systems are negative. Exam: 15:45 Constitutional: This is a well developed, well nourished patient who is awake, alert, kb and in no acute distress. Head/Face: Normocephalic, atraumatic. ENT: Moist Mucous membranes Respiratory: Respirations even and unlabored. No increased work of breathing, no retractions or nasal flaring. Abdomen/GI: Soft, non-tender. No distention Skin: Warm, dry with normal turgor. Normal color. MS/ Extremity: Pulses equal, no cyanosis. Neurovascular intact. Full, normal range of motion. Neuro: Awake and alert, GCS 15, oriented to person, place, time, and situation. Moves all extremities. Normal gait. Psych: Awake, alert, with orientation to person, place and time. Behavior, mood, and affect are within normal limits. Vital Signs: 09:33 BP 161 / 84; Pulse 101; Resp 20; Temp 97.6; Pulse Ox 99% ; Weight 151.95 kg; Height 6 iw ft. 1 in. (185.42 cm); Pain 0/10; 10:03 BP 157 / 85; Pulse 99; Resp 20; Pulse Ox 98% on R/A; vg1 10:59 BP 154 / 84; Pulse 65; Resp 16; Pulse Ox 97% on R/A; vg1 09:33 Body Mass Index 44.20 (151.95 kg, 185.42 cm) iw MDM: 09:40 Patient medically screened. kb 15:44 Data reviewed: vital signs, nurses notes. Data interpreted: Pulse oximetry: on room air kb is 97 %. Interpretation: normal. Counseling: I had a detailed discussion with the patient and/or guardian regarding: the historical points, exam findings, and any diagnostic results supporting the discharge/admit diagnosis, lab results, the need for outpatient follow up, a family practitioner, to return to the emergency department if symptoms worsen or persist or if there are any questions or concerns that arise at home. 15:45 ED course: No diarrhea episodes since being brought to a room. Patient tolerating p.o. kb intake.. 02/20 09:40 Order name: COVID-19 : Document "Date of Symptom Onset" if Symptomatic. kb 02/20 11:12 Order name: SARS-COV-2 RT PCR; Complete Time: 11:18 EDMS Administered Medications: 09:44 Drug: LoMOTIL (diphenoxylate-atropine) 1 tabs Route: PO; iw 10:59 Follow up: Response: No adverse reaction; Marked relief of symptoms vg1 Disposition: 02/21 08:31 Co-signature as Attending Physician, Cornel Yuan MD I agree with the assessment and adrian plan of care. Disposition Summary: 02/20/21 11:18 Discharge Ordered Location: Home kb Condition: Stable kb Diagnosis - Diarrhea, unspecified kb Followup: kb - With: Emergency Department - When: As needed - Reason: Worsening of condition Followup: kb - With: Private Physician - When: 2 - 3 days - Reason: Recheck today's complaints, Continuance of care, Re-evaluation by your physician Discharge Instructions: - Discharge Summary Sheet kb - Food Choices to Help Relieve Diarrhea, Adult kb - Diarrhea, Adult, Rvic-ig-[id number] kb Forms: - Medication Reconciliation Form kb - Thank You Letter kb - Antibiotic Education kb - Prescription Opioid Use kb Signatures: Dispatcher [employer] EDMS Merari Telles FNP-C [place]-Cornel Garzon MD MD cha Williams, Irene RN Frances Briceno RN vg1 Corrections: (The following items were deleted from the chart) 02/20 09:38 09:37 PMHx: High Cholesterol; [facility] 10:21 09:41 CORONAVIRUS ordered. EDMN EDMS
[2021-02-20 11:38] VITALS: TEMP 97.6
[2021-02-20 11:40] VITALS: BP 154/84; O2SAT 97
== END 2021-02-20 11:33 | disposition home or self-care (01) ==
LOC: ER 09:25
DX: R19.7 Diarrhea, unspecified (principal); E11.22 Type 2 diabetes mellitus with diabetic chronic kidney disease; I12.0 Hypertensive chronic kidney disease with stage 5 chronic kidney disease or end stage renal disease; N18.5 Chronic kidney disease, stage 5; Z99.2 Dependence on renal dialysis; Z88.5 Allergy status to narcotic agent; Z20.822 Contact with and (suspected) exposure to COVID-19
CPT/HCPCS: 99283; U0003

== ENCOUNTER 2021-02-25 09:53 | Emergency (ER) | payer OTHER ==
--- OUTSIDE RECORDS SUMMARY | 2021-02-25 10:00 | XMS REPORT | Continuity of Care Document ---
:1970 Author Organization [facility] t Address [address] [place] [address] Care Team Providers Name Role Phone Asked, Pcp Primary Care Physician Unavailable Caden JAMESON Attending Clinician Unavailable Lane MELO, Kattalejandra Attending Clinician Rosamaria Castillo RN Attending Clinician Justice FOLEY Attending Clinician Unavailable Radames JAMESON Attending Clinician Unavailable Payers Payer Name Policy Type Policy Effective Date Expiration Date Sour ce Number MEDICAREMEDICARE PART [id number] 2019 thodist A AND 00:00:00 [facility] [id number] 2018[place] Condition Condition Status Onset Resolution Last Treating Co mments Source Name Details Category Date Date Treatment Clinician Date SENT BY Diagnosis Active 2018-10-24 Memoria / DIALYSIS 10-24 11:05:00 l SENT BY 00:00: Pineda / DIALYSIS Active 10/24/2018 [facility] CHRONIC Diagnosis Active 2018-10-02 Me moria KIDNEY 3-14 14:46:00 l DISEASE, CHRONIC 00:00: Aurelia nn STAGE 5 KIDNEY 00 DISEASE, STAGE 5 Active 09/06/2018 [facility] HYPERKALEM Diagnosis Active 2018-03-27 Memoria IA 03-21 09:26:00 l 00:00: Elizabeth HYPERKALEM 00 IA Active [facility] DR. Diagnosis Active 2018-03-21 Mem oria REFERRAL 03-21 22:20:[address] 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 10/15/2018 [facility] Personal Problem 2018-10-15 [facility] oria history of 12:46:18 l transient Personal Her oliva ischemic history of attack transient (TIA), and ischemic cerebral attack infarction (TIA), and without cerebral residual infarction deficits without residual deficits 10/15/2018 [facility] Hyperkalem Problem 2018-10-15 M emoria ia 12:46:18 l Pineda Hyperkalem ia 10/15/2018 [facility] Anemia in Problem 2018-10-15 Me moria chronic 12:46:18 l kidney Anemia Elizabeth disease in chronic kidney disease 10/15/2018 [facility] care home Problem 2018-10-15 Me moria (current) 12:46:18 l use of Long Pineda oral term hypoglycem (current) ic drugs use of oral hypoglycem ic drugs 10/15/2018 [facility] Hypomagnes Problem 2018-10-15 M emoria emia 12:46:18 l Pineda Hypomagnes emia 9 [facility] Morbid Problem 2018-10-15 Memor ia (severe) 12:46:18 l obesity Morbid Elizabeth due to (severe) excess obesity calories due to excess calories 10/15/2018 [facility] Hypertroph Problem 2018-10-15 M emoria ic scar 12:46:18 l Pineda Hypertroph ic scar 10/15/2018 [facility] Other Problem 2018-10-15 Memor ia disorders 12:46:18 l of Other Pineda phosphorus disorders metabolism of phosphorus metabolism 10/15/2018 [facility] 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:46:18 l mellitus Type 2 William n with diabetes unspecifie mellitus d diabetic with retinopath unspecifie y without d diabetic macular retinopath edema y without macular edema 10/15/2018 [facility] 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:46:18 l 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 10/15/2018 [facility] Hyperlipid Problem 2018-10-15 M emoria emia, 12:46:18 l unspecifie William n d Hyperlipid emia, unspecifie d 10/15/2018 [facility] Transient Problem Resolve 2018-10-27 M emoria ischemic d 00:00:48 l attack Elizabeth (disorder) Transient ischemic attack (disorder) Resolved Problem 10/27/2018 [facility] Diabetes Problem Active 2018-10-27 Mem oria mellitus 00:00:48 l (disorder) Diabetes He rmann mellitus (disorder) Active Problem 10/27/2018 not taking meds-taken off meds b/c of "kidney disease" [facility] End stage Problem Active 2018-10-27 Me moria renal 00:00:48 l disease End Elizabeth (disorder) stage renal disease (disorder) Active Problem 10/27/2018 [facility] Hypertensi Problem Active 2018-10-27 M emoria ve 00:00:48 l disorder, Pineda systemic Hypertensi arterial ve (disorder) disorder, systemic arterial (disorder) Active Problem 10/27/2018 [facility] Osteoarthr Problem Active 2018-10-27 M emoria itis 00:00:48 l (disorder) William n Osteoarthr itis (disorder) Active Problem 10/27/2018 [facility] Acute Problem 2018-10-15 Memor ia kidney 12:46:18 l failure Acute Pineda with 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 10/15/2018 [facility] Acidosis Problem 2018-10-15 Mem oria 12:46:18 l Acidosis William n 10/15/2018 [facility] History of Past Illness Condition Condition Condition Status Onset Resolution Last Treating Co mments Source Name Details Category Date Date Treatment Clinician Date End stage Problem 2018-10-27 2018-10-27 Memoria renal 5- 00:00:48 00:00:48 l disease End 17:00: Elizabeth stage 00 renal disease 10/24/2018 10/27/2018 [facility] Hypertensi Problem 2017-062018-10-15 2018-10-15 Memoria ve 0-12 12:46:18 12:46:18 l emergency 03:05: Elizabeth Hypertensi 37 ve emergency 04/06/2018 10/15/2018 [facility] Allergies, Adverse Reactions, Alerts Allergy Allergy Status Severity Reaction(s) Onset Inactive Treating Comm ents Source Name Type Date Date Clinician Morphine Propensi Active Other (See vomiting Methodi ty to Comments) 12-02 st adverse 00:00: Hospita reaction 00 l s to drug MOPRPHIN DA Active OK 2019-06 [facility] E 0-30 Clear 00:00: Benítez 00 [facility] morphine morphine Active Memori a 6-22 l 00:00: Pineda 00 Family History Family Member Diagnosis Comments Start Date Stop Date Source Natural mother [facility] Social History Social Habit Start Date Stop Date Quantity Comments Source Alcohol intake 2020-04-05 2020-04-05 Current drinker Metho dist 00:00:00 00:00:00 of alcohol Hospital (finding) Social History 2018-03-22 2018-03-22 [facility] 10:01:54 10:01:54 Sex Ass[birth year] At [birth year] [facility] Smoking Status Start Date Stop Date Source [facility] Medications Ordered Filled Start Stop Current Ordering Indication Dosage Frequency Signature Comments Components Source Medication Medication Date Date Medication? Clinician (SIG) Name Name NIFEdipine Yes [facility] ([facility]AL[facility] -[facility]) 60 MG 00:00: Hospita 24 [...] MG 00:00: Hospita tablet 00 l NIFEdipine 2020-0 Yes [facility] (ADALAT 4-[facility]) [...] 09-24 (Same as: l Capsule 17:04: Neurontin) Herm nicola Oxycodone No 5 mg, Memoria Hydrochlori [...] ONCE, Stop date: 09/24/18 8:44:00 CDT cisatracuri No Route: IV, Memoria um (ANES) 09-24 Drug form: l 13:44: INJ, ONCE, Pineda 00 Stop date: 09/24/18 8:44:00 CDT Sodium 2018-0 [...] Memoria 0-03 (Same as: l 22:00: Colace) Elizabeth 00 (Do Not Crush) Miralax 2017-06 No Notes: Memoria 0-03 Dissolve l 22:00: in 8 oz of Pineda 00 water or juice. (Same as: Miralax) clopidogrel 2017-06 Yes 75 mg = 1 M emoria 75 MG Oral 0-03 tab, PO, l Tablet 20:46: Daily, # Pineda [Plavix] 00 30 tab, 0 Refill(s), Pharmacy: [facility] Aspirin 81 2017-06 No 81 mg = 1 Me moria MG Enteric 0-03 tab, PO, l Coated 20:36: Daily, # Elizabeth Tablet 00 90 tab, 3 Refill(s), Pharmacy: [facility] NIFEdipine 2017-06 Yes 60 mg = 1 Me moria 60 mg oral 0-03 tab, PO, l tablet, 19:22: Q12H, # 60 Herm nicola extended 00 tab, 0 release Refill(s), Pharmacy: [facility] isosorbide 2017-06 Yes 20 mg = 1 Me moria dinitrate 0-03 tab, PO, l 20 mg oral 19:22: TID, # 90 He rmann tablet 00 tab, 0 Refill(s), Pharmacy: [facility] atorvastati 2017-06 Yes 10 mg = 1 M emoria n 10 mg 0-03 tab, PO, l oral tablet 19:22: Bedtime, # Pineda 00 30 tab, 0 Refill(s), Pharmacy: [facility] Hydralazine 2017-06 Yes 50 mg = 1 M emoria Hydrochlori 0-03 tab, PO, l de 50 MG 19:22: Q8H, # 90 Herm nicola Oral Tablet 00 tab, 0 Refill(s), Pharmacy: [facility] carvedilol 2017-06 Yes 12.5 mg = Me moria 12.5 mg 0-03 1 tab, PO, l oral tablet 19:22: Q12H, # 60 Elizabeth 00 tab, 0 Refill(s), Pharmacy: [facility] calcitriol 2017-06 Yes 0.25 Memoria 0.25 mcg 0-03 microgram, l oral 19:22: PO, Daily, Pineda capsule 00 # 30 caplet, 0 Refill(s), Pharmacy: [facility] polyethylen 2017-06 No 17 gm, PO, Memoria e glycol 0-03 Daily, X 7 l 3350 oral 19:22: day, # 255 He rmann powder for 00 gm, 0 reconstitut Refill(s), ion Pharmacy: [facility] Sodium 2017-06 No 650 mg = 1 Memor ia Bicarbonate 0-03 tab, PO, l 650 MG Oral 19:22: TID, X 30 H ermann Tablet 00 day, # 90 tab, 0 Refill(s), Pharmacy: [facility] sevelamer 2017-06 Yes 800 mg = 1 Me moria carbonate 0-03 tab, PO, l 800 mg oral 19:22: TID-Meals, Pineda tablet 00 # 90 tab, 0 Refill(s), Pharmacy: [facility] Calcitriol 2017-06 No Notes: Memor ia 0-03 [...] ia dinitrate 0-02 (Same l 18:00: as:Isordil Elizabeth 00 ) Take on empty stomach/ full [...] Memor ia 0-02 (sodium l 12:30: polystyren Elizabeth 00 e sulfonate 15 gm/60 ml ESTELLE) Shake well before use. (Same as: Kayexalate , SPS) sevelamer 2017-06 No Notes: Memori a 0-01 Same as: l 13:00: Renvela Pineda 00 [id number] No 25 gm, 50 Memoria (bolus) IV 0-01 mL, Route: l 12:53: IV, Drug Pineda 00 Form: INJ, Dosing Weight 163.1, kg, ONCE, Start date: 03/26/18 7:53:00 CDT, Stop date: 03/26/18 7:53:00 CDT Insulin 2017-06 No 60 Memoria regular 0-01 units) l 12:53: WASTE: F/P Pineda - Black; E - Municipal Trash Bin Stable for 28 days at room temperatur e Expires in days from ____Date Kayexalate 2017-06 No Notes: Memor ia 0-01 (sodium l 12:53: polystyren Pineda 00 e sulfonate 15 gm/60 ml ESTELLE) Shake well before use. (Same as: Kayexalate , SPS) Sodium 2017-06 No Notes: Memoria Bicarbonate "Dissolve l 11:50: tablet in Pineda 00 a glass of water prior to oral administra tion. STOMACH WARNING: To avoid serious injury, do not take until tablet is completely dissolved. It is very important not to take this product when overly full from food or drink." NIFEdipine No Notes: Memor ia 60 mg oral 03-25 (Same as: l tablet, 14:00: Adalat CC, Herm nicola extended 00 Procardia release XL) Give on empty stomach. Take 1 hour before or 2 hours after meal; "Avoid grapefruit and grapefruit juice". Do not crush Magnesium No Notes: Memori a Sulfate 03-25 WASTE: F/P l 12:20: - Sink; E Elizabeth - [facility] Trash Bin NIFEdipine No Notes: Memor ia [...] ia dinitrate 03-24 (Same l 21:00: as:Isordil Pineda ) Take on empty stomach/ [...] Route: PO, l 18:00: Drug form: Pineda TAB, TID, Start date: 03/24/18 13:00:00 CDT, [...] 03-23 0.5 tab, l 14:00: Route: PO, Elizabeth 00 Drug form: TAB, TID, Start date: [...] Notes: Memoria - porcine l 13:00: heparin Pineda 00 Labetalol 2018-0 No 10 mg, 2 Manjinder [...] Notes: Memoria 03-22 porcine l 13:00: heparin Glucagon No 1 mg, Memoria 03-22 Route: [...] " WASTE: F/P - Black; E - CompleteSet Trash Bin Stable for 28 days at room temperatur e. Expires in days from ____Date Dextrose No 25 gm, 50 Manjinder tammy 50% Syringe 9-27 mL, Route: l 11:16: IVP, Drug Form: INJ, Dosing Weight 163.1, kg, PRN, PRN Blood Glucose Results, Start date: 03/22/18 6:16:00 CDT, Duration: 30 day, Stop date: 04/21/18 6:15:00 CDT Amlodipine No 1 tab, PO, M emoria [...] No Notes: SEE Me moria 0.83 MG/ML 9-27 RT l Inhalant 02:32: DOCUMENTAT Her oliva Solution 00 ION (Same as: Proventil) Dextrose 0 No 50 gm, 100 Mem oria 50% Syringe 9-27 mL, Route: l 02:31: IV, Drug Pineda Form: INJ, Dosing Weight 165.909, kg, ONCE, Start date: 03/21/18 21:31:00 CDT, Stop date: 03/21/18 21:31:00 CDT Insulin No 60 Memoria regular 9-27 units) l 02:31: WASTE: F/P Elizabeth 00 - Black; E - Municipal Trash Bin Stable for 28 days at room temperatur e Expires in days from ____Date Vital Signs Vital Name Observation Time Observation Value Comments Source Systolic blood 2020-12-02 21:18:00 196 mm[Hg] recheck Method [facility] Hospital pressure Diastolic blood 2020-12-02 21:18:00 127 mm[Hg] recheck [facility] pressure Heart rate 2020-12-02 20:16:00 77 /min [facility] Body temperature 2020-12-02 20:16:00 36.39 [facility] Body height 2020-12-02 20:16:00 185.4 cm [facility] Body weight 2020-12-02 20:16:00 156.763 kg [facility] BMI 2020-12-02 20:16:00 45.60 kg/m2 [facility] Oxygen saturation in 2020-12-02 20:16:00 97 /min [facility] Arterial blood by Pulse oximetry Temperature Oral (F) 2018-10-24 21:53:00 98 F [facility] Respitory Rate 2018-10-24 21:53:00 Memori al Pineda Systolic (mm Hg) 2018-10-24 21:53:00 Manjinder rial Pineda Diastolic (mm Hg) 2018-10-24 21:53:00 Mem orial Pineda Respitory Rate 2018-10-24 20:25:00 Memori al Pineda Respitory Rate 2018-10-24 18:02:00 Memori al Elizabeth Systolic (mm Hg) 2018-10-24 18:02:00 Manjinder rial Pineda Diastolic (mm Hg) 2018-10-24 18:02:00 Mem orial Elizabeth Systolic (mm Hg) 2018-10-24 16:58:00 Manjinder rial Elizabeth Diastolic (mm Hg) 2018-10-24 16:58:00 Mem orial Pineda Temperature Oral (F) 2018-10-24 16:58:00 98.2 F [facility] Elizabeth Height 2018-10-24 12:06:00 185.42 cm [facility] Elizabeth BMI Calculated 2018-10-24 12:06:00 Memori al Pineda Weight 2018-10-24 12:06:00 [facility] Heart Rate 2018-10-24 12:06:00 [facility] Elizabeth Temperature Oral (F) 2018-10-24 12:06:00 97.8 F [facility] Pineda Systolic (mm Hg) 2018-09-24 15:27:00 Manjinder rial Pineda Diastolic (mm Hg) 2018-09-24 15:27:00 Mem orial Elizabeth Respitory Rate 2018-09-24 15:27:00 Memori al Pineda Systolic (mm Hg) 2018-09-24 15:00:00 Manjinder rial Elizabeth Diastolic (mm Hg) 2018-09-24 15:00:00 Mem orial Pineda Respitory Rate 2018-09-24 15:00:00 Memori al Pineda Respitory Rate 2018-09-24 14:45:00 Memori al Elizabeth Systolic (mm Hg) 2018-09-24 14:45:00 Manjinder rial Elizabeth Diastolic (mm Hg) 2018-09-24 14:45:00 Mem orial Elizabeth Weight 2018-09-24 12:14:00 [facility] Pineda BMI Calculated 2018-09-24 12:14:00 Memori al Pineda Height 2018-09-24 12:14:00 185.42 cm [facility] Elizabeth Heart Rate 2018-09-24 10:45:00 [facility] Elizabeth BMI Calculated 2018-09-20 18:58:00 Memori al Elizabeth Weight 2018-09-20 18:58:00 [facility] Pineda Height 2018-09-20 18:58:00 185.42 cm [facility] Elizabeth Systolic (mm Hg) 2018-03-28 16:35:00 Manjinder rial Elizabeth Diastolic (mm Hg) 2018-03-28 16:35:00 Mem orial Elizabeth Heart Rate 2018-03-28 16:35:00 Memorial Pineda Respitory Rate 2018-03-28 16:35:00 Memori al Pineda Temperature Oral (F) 2018-03-28 16:35:00 98.1 F [facility] Pineda Temperature Oral (F) 2018-03-28 12:35:00 98.2 F [facility] Pineda Heart Rate 2018-03-28 12:35:00 [facility] Elizabeth Systolic (mm Hg) 2018-03-28 12:35:00 Manjinder rial Elizabeth Diastolic (mm Hg) 2018-03-28 12:35:00 Mem orial Pineda Respitory Rate 2018-03-28 12:35:00 Memori al Elizabeth Temperature Oral (F) 2018-03-28 10:10:00 98.4 F Memorial Pineda Respitory Rate 2018-03-28 10:10:00 Memori al Pineda Heart Rate 2018-03-28 10:10:00 [facility] Elizabeth Systolic (mm Hg) 2018-03-28 10:10:00 Manjinder rial Elizabeth Diastolic (mm Hg) 2018-03-28 10:10:00 Mem orial Pineda BMI Calculated 2018-03-22 09:08:00 Memori al Elizabeth Weight 2018-03-22 09:08:00 [facility] Height 2018-03-22 09:08:00 185.42 cm [facility] BMI Calculated 2018-03-22 00:57:00 Memori al Elizabeth Weight 2018-03-22 00:57:00 [facility] Height 2018-03-22 00:57:00 185.42 cm [facility] Procedures Procedure Date / Time Performed Performing Clinician [facility] e Eye reconstruction [facility] nicola Hernia repair [facility] Knee joint operation [facility] Plan of Care Planned Activity Planned Date Details Comments Source Future Scheduled Test DIABETES: RETINAL EYE [facility] EXAM [code = DIABETES: RETINAL EYE EXAM] Future Scheduled Test DIABETIC FOOT EXAM [facility] [code = DIABETIC FOOT EXAM] Future Scheduled Test COVID-19 VACCINE (1) [facility] [code = COVID-19 VACCINE (1)] Future Scheduled Test Hepatitis C screening [facility] (procedure) [code = 284430640] Future Scheduled Test INFLUENZA VACCINE [facility] [code = INFLUENZA VACCINE] Future Scheduled Test DIABETES: RETINAL EYE [facility] EXAM [code = DIABETES: RETINAL EYE EXAM] Future Scheduled Test DIABETIC FOOT EXAM [facility] [code = DIABETIC FOOT EXAM] Future Scheduled Test COVID-19 VACCINE (1) [facility] [code = COVID-19 VACCINE (1)] Future Scheduled Test Hepatitis C screening [facility] (procedure) [code = 578537560] Future Scheduled Test INFLUENZA VACCINE M [facility] [code = INFLUENZA VACCINE] Encounters Start End Encounter Admission Attending Care Care Encounter Source Date/Time Date/Time Type Type Clinicians Facility Department ID 2020-12-07 2020-12-07 Travel 1.2.840.1 [id number] Methodi 00:00:00 00:00:[address] 3.430.2.7 0.2.7.3.698 Ho spita .3.830801 084.8 l .8 2020-12-07 2020-12-07 Orders Caden, 1.2.840.1 [id number] Methodi 00:00:00 00:00:00 Only Marie 67190.1.[address] 3.430.2.7 Hospit a .3.347045 l .8 2020-12-07 2020-12-07 Travel 1.2.840.1 1.2.767.464 [id number] Methodi 00:00:00 00:00:[address] 3.430.2.7 0.2.7.3.698 Ho spita .3.265234 084.8 l .8 2020-12-07 2020-12-07 Orders Negrete, 1.2.840.1 [id number] Methodi 00:00:00 00:00:00 Only Marie [address]5314.1.[address] 3.430.2.7 Hospit a .3.689209 l .8 2020-12-03 2020-12-03 [place], 1.2.840.1 [id number] [id number] Methodi 00:00:00 00:00:[address] [facility] 3.430.2.7 [facility] .3.153385 l .8 2020-12-03 2020-12-03 Telephone Sherman, 1.2.840.1 [id number] 2100 [id number] Methodi 00:00:00 00:00:00 Clemente 42472.1.1 991 [facility] 3.430.2.7 Hosp flor .3.127773 l .8 2020-12-02 2020-12-02 Office [facility], 1.2.840.1 [id number] Methodi 15:12:20 16:22:20 Visit Clemente 80943.1.1 401 [facility] 3.430.2.7 Hosp [facility] .3.889124 l .8 2020-12-02 2020-12-02 Office Sherman, 1.2.840.1 [id number] Methodi 15:12:20 16:22:20 Visit Clemente 97956.1.1 401 [facility] 3.430.2.7 Hosp flor .3.466845 l .8 2020-12-02 2020-12-02 Travel 1.2.840.1 1.2.139.210 [id number] Methodi 00:00:00 00:00:[address] 3.430.2.7 0.2.7.3.698 Ho spita .3.481804 084.8 l .8 2020-12-02 2020-12-02 Travel 1.2.840.1 1.2.028.537 3877 [id number] Methodi 00:00:00 00:00:[address] 3.430.2.7 0.2.7.3.698 Ho spita .3.187387 084.8 l .8 2020-12-01 2020-12-01 [place] Castillo, 1.2.840.1 [id number] Methodi 00:00:00 00:00:[address] [place] 3.430.2.7 [facility]osp [facility] .3.661707 l .8 2020-12-01 2020-12-01 Telephone Sherman, 1.2.840.1 [id number] Methodi 00:00:00 00:00:[address] [facility] 3.430.2.7 Hosp flor .3.180283 l .8 2020-12-01 2020-12-01 Telephone Castillo, 1.2.840.1 [id number] Methodi 00:00:00 00:00:00 Amelia 52152.1.1 037 [facility] 3.430.2.7 Hosp flor .3.360501 l .8 2020-12-01 2020-12-[address], 1.2.840.1 [id number] Methodi 00:00:00 00:00:00 Clemente 20916.1.1 034 [facility] 3.430.2.7 Hosp flor .3.862159 l .8 2020-10-21 2020-10-21 Office Sherman, 1.2.840.1 [id number] Methodi 14:56:04 15:47:36 Visit Clemente 92680.1.1 666 [facility] 3.430.2.7 Hosp flor .3.510909 l .8 2020-10-21 2020-10-21 Office [facility], 1.2.840.1 [id number] Methodi 14:56:04 15:47:36 Visit Clemente 76246.1.1 666 [facility] 3.430.2.7 Hosp flor .3.533066 l .8 2020-10-21 2020-10-21 Travel 1.2.840.1 1.2.071.966 2122 [id number] Methodi 00:00:00 00:00:[address] 3.430.2.7 0.2.7.3.698 Ho spita .3.250189 084.8 l .8 2020-10-21 2020-10-21 Travel 1.2.840.1 1.2.620.492 [id number] Methodi 00:00:00 00:00:[address] 3.430.2.7 0.2.7.3.698 Ho spita .3.620007 084.8 l .8 2020-09-24 2020-09-24 Telephone Rendon, 1.2.840.1 [id number] Methodi 00:00:00 00:00:[address] 3.430.2.7 Hospit a .3.681368 l .8 2020-09-24 2020-09-24 King Rendon, 1.2.840.1 [id number] Methodi 00:00:00 00:00:[address] 3.430.2.7 Hospit a .3.017975 l .8 2020-04-03 2020-04-03 [facility] Crum, 1.2.840.1 [id number] Methodi 00:00:00 00:00:00 Only Crysandria 74177.1.1 811 s t 3.430.2.7 Hospit a .3.241069 l .8 2020-04-03 2020-04-03 King Rendon, 1.2.840.1 [id number] Methodi 00:00:00 00:00:[address] 3.430.2.7 Hospit a .3.293455 l .8 2020-04-03 2020-04-03 Gabrielle Crum, 1.2.840.1 [id number] Methodi 00:00:00 00:00:00 Only Crysandria 09125.1.1 811 s t 3.430.2.7 Hospit a .3.588472 l .8 2020-04-03 2020-04-03 King Rendon, 1.2.840.1 [id number] Methodi 00:00:00 00:00:[address] 3.430.2.7 Hospit a .3.514472 l .8 2018-10-24 2018-10-24 Emergency [facility] [id number] Memoria 12:02:21 22:12:00 r Elizabeth 02 [facility] 2018-10-24 2018-10-24 Emergency E [facility] 07:02:00 07:02:00 2018-09-24 2018-09-25 Day [facility] [id number] 675 Memoria 10:19:00 04:59:00 Surgery r Elizabeth [facility] 2018-09-24 2018-09-24 Outpatient [facility] 05:19:00 05:19:00 2018-03-22 2018-03-28 Inpatient [facility] [id number] Memoria 00:55:00 22:26:00 r Elizabeth 00 [facility] Results Test Description Test Time Test Comments Results Result Comments Source GLUBED 2020-04-27 05:14:00 Test Item Value Reference Range Interpretation Comme nts GLUBED (test code = GLUBED) 126 MG/DL 70-110 H 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 at [facility] [id number] 14:58:00 Test Item Value Reference Range Interpretation Comments GLUBED (test code = 115 MG/DL 70-110 H Performe d by certified GLUBED) liquid hydrogen plant operator at [facility] COVID 19 Asymptomatic IH [id number] 11:18:00 Test Item Value Reference Range Interpretation [...] not done this admission- XR CHEST 2 [id number] 11:16:00 [facility] 1970 Sex: M FAX: Humberto Ness MD [phone] [place]: St: REG Name: CHERIE STYLES [facility] : 1970 Age/S: 49/M [address] [place] [address] Unit #: [id number] Loc: [place] [address] Phys: Humberto Tee MD Acct: [id number] Dis Date: Status: [place] [facility] [place] #: [phone] Exam Date: 04/24/2020 1108 FAX #: [phone] Reason: PREOP EXAMS: CPT CODE: [id number] XR CHEST 2 V 29007 EXAM: XR CHEST 2 VIEWS DATE: 04/24/2020 [...] CT chest without contrast is recommended. SL: [id number] at 1116 Reported and signed by: Apryl Almeida D.O. CC: Humberto Tee MD Technologist: RT Keyon(R) Trnscrd Date/Time/By: 04/24/2020 (1116) : By: [email or web address] Orig Print D/T: S: 04/24/2020 (1120) PAGE 1 Signed ReportBASIC METABOLIC [id number] 11:03:00 Test Item Value Reference Range Interpretation [...] = 7.7 mg/dL 8.0-10.5 L CA) PROTHROMBIN ZPUL1294-54-85 10:49:00 Test Item Value Reference Range Interpretation [...] o prevent recurre nt infarct). THROMBOPLASTIN TIME ENULGSA8904-71-15 10:49:00 Test Item Value Reference Range Interpretation Comments THROMBOPLASTIN TIME 31.1 Seconds 25.0-39.5 N Ther apeutic PARTIAL (test code = Range: 50.4 - 88.3 PTT) Seconds Effective 10/09/2018 CBC W/AUTO [id number] 10:36:00 Test Item Value Reference Range Interpretation [...] REQUIRED (test code = MDIFF) CBC W/AUTO TPUK8770-15-54 10:36:00 Test Item Value Reference Range Interpretation [...] DIFF REQUIRED (test code NO = MDIFF) FAAHXMODEA3174-01-75 13:13:00Negative *NA*(10/24/18 8:13 AM)[facility] BANK EPTKTBK6966-47-06 13:07:00Negative (10/24/18 8:07 AM)[facility] EZLMNTGBWQVV1588-31-99 13:01:5014.8[facility] PtegmrwNWOCEQNCTVTA4146-02-06 13:01:507[facility] FyhmnujXUOSPUKKHUET4210-30-60 13:01:508.2[facility] VNOALAMZLZJJ8609-79-49 13:01:28436Ryvaflnt UpsmagvCWIFYQUQPKZW6230-06-03 13:01:5074[facility] ZdihloxZAWEBYJAQUNL8718-88-30 13:01:509.58[facility] QNELBCODWUHG8902-37-32 13:01:504.8[facility] RohcnvuPQMHBCSPSIXP9734-54-82 13:01:5021[facility] HohwjzkIDYJUGPEGMDL1672-00-14 13:01:76794Eaquoaxd [facility] TINLEEKZHXVD9623-50-67 13:01:91774Huawhhub XuigxduDOKRSVLQZM8241-81-93 13:01:50 Test Item Value Reference Range Interpretation Comments INR (test code = INR) 1.05 1 0.85-1.17 [facility]klcmdKOFFNQMCCJ2754-18-27 13:01:50 Test Item Value Reference Range Interpretation Comments PT (test code = PT) 13.5 s 12.0-14.7 [facility] JsigdknBYNBKATHAI9014-45-91 13:01:50 Test Item Value Reference Range Interpretation Comments PTT (test code = PTT) 30.3 s 22.9-35.8 [facility] BezyuidKGKGMHXPGM2359-37-71 13:01:508.5[facility] HermannHEMATOLOGY 2018-10-24 13:01:504.2[facility] VyfbxqkCAKBZXZQVH4829-75-42 13:01:5014.6[facility] ArqsdydQQWBKJPCHY5804-28-45 13:01:82950Huoowtta VezdeufUFLXRJAUMN8661-87-24 13:01:5034.0[facility] XrfwrmzOIRRAZTXBU7969-29-60 13:01:5085.3[facility] AHGJBDBKWP5795-80-62 13:01:50 Test Item Value Reference Range Interpretation Comments MCH (test code = MCH) 29.0 pg 27.0-31.0 [facility] DbuntieKYBPCCZQOT9947-31-11 13:01:5020.9[facility] HermannHEMATOLOGY 2018-10-24 13:01:507.1[facility] AjrxnoaYTFCTBBYAZ5119-06-32 13:01:502.45[facility] EyzqvcaFMAXKXNXQR2800-76-21 13:01:500.1[facility] VayjeugRPSUUUYNAG4433-17-17 13:01:5014.3[facility] BizeibfWFOZOUHVVP4321-07-66 13:01:5071.6[facility] EWNEJLUSRR4501-82-01 13:01:503.0[facility] JpifqweKWLFKOJVAH2007-64-41 13:01:500.4 [facility] CibvkajOUYNXENHEM4960-18-84 13:01:500.6[facility] HermannHEMATOLOGY 2018-10-24 13:01:500.6[facility] WfxtniaKHTFRVJENI6685-22-75 13:01:502.7[facility] NdyqxfrJJFTXDRLYH7492-80-11 13:01:5010.8[facility] HermannBACTERIAL - SEROLOGY 2018-09-24 11:32:00Negative (09/24/18 6:32 AM)[facility] HermannELECTROLYTES 2018-09-24 11:09:004.4[facility] HermannBLOOD BANK UPADWHA7814-14-04 11:05:00 Negative (09/24/18 6:05 AM)[facility] HermannCHEM DZZYH6344-60-80 11:05:006[facility] HermannCHEM YPFFE1130-41-13 11:05:000.2[facility] HermannCHEM GSTHE5409-28-67 11:05:008[facility] HermannCHEM RSLXJ8374-10-38 11:05:0064[facility] HermannCHEM MJDQK7350-41-18 11:05:0015[facility] HermannCHEM ZWERA1938-81-32 11:05:004.5 [facility]annCHEM YJHTF0468-13-56 11:05:007.3[facility] HermannCHEM PANEL 2018-09-24 11:05:0020[facility] HermannCHEM TLQPT1149-66-69 11:05:003.3[facility] HermannCHEM IRNEC9338-26-60 11:05:008.4[facility] HermannCHEM OHZCE5881-32-03 11:05:79837Cuauiapn HermannCHEM GRSNQ8315-65-65 11:05:0010.30[facility] CHEM YWDOV8994-97-70 11:05:36754Jbyvxfem HermannCHEM WMDVU6377-48-72 11:05:79155 [facility] HermannCHEM NDXQN9047-56-49 11:05:0076[facility] HermannCHEM PANEL 2018-09-24 11:05:00 Test Item Value Reference Range Interpretation Comments A/G Ratio (test code = A/G Ratio) 0.8 1 0.7-1.6 [facility] HermannCHEM HWGMD9763-44-99 11:05:00 Test Item Value Reference Range Interpretation Comments B/C Ratio (test code = B/C Ratio) 7 1 6-25 [facility]annCHEM PQYBF8874-53-87 11:05:004.0[facility] HermannCHEM PANEL 2018-09-24 11:05:0013.5[facility] BfnqqnuOREGSFUZAP1112-18-41 11:05:001.0[facility] GiocfsbWJMTJOVDQP8627-23-26 11:05:000.1[facility] DeuzodiZZTSDWSVCW4984-24-31 11:05:000.2[facility] MlqwgezVFLWXXAQHW6847-64-55 11:05:000.9[facility] GVXRBFGRDC3948-52-82 11:05:002.2[facility] BbduwvnDPMHPYLAMV7924-86-44 11:05:002.0 [facility] EngacozZVHOCGMJKA0746-60-88 11:05:003.2[facility] HermannHEMATOLOGY 2018-09-24 11:05:0016.1[facility] YskxxyiJOBXXNDQMK5157-38-77 11:05:0042.0[facility] ReapnvnPAVACQTIOL8212-46-34 11:05:0038.7[facility] YtrgaqsJGSVFVTYUQ5044-92-77 11:05:00 Test Item Value Reference Range Interpretation Comments PT (test code = PT) 14.5 s 12.0-14.7 [facility] OpikecqWNWQBAJZXX5816-19-48 11:05:00 Test Item Value Reference Range Interpretation Comments INR (test code = INR) 1.15 1 0.85-1.17 [facility] FdgjaqhDGAAAWLKPI4616-15-03 11:05:00 Test Item Value Reference Range Interpretation Comments PTT (test code = PTT) 31.4 s 22.9-35.8 [facility] YjwaowoMIFRZQCKLR5572-55-70 11:05:007.5[facility] HermannHEMATOLOGY 2018-09-24 11:05:0021.9[facility] MbgjracVCAAQQHZYN5185-47-90 11:05:00 Test Item Value Reference Range Interpretation Comments MCH (test code = MCH) 28.5 pg 27.0-31.0 [facility] SijxxhtRRWBCIMRXC2217-20-09 11:05:0034.4[facility] HermannHEMATOLOGY 2018-09-24 11:05:0014.2[facility] UmtdxqsWRRBNLDNIP6703-43-63 11:05:30348Ihjixoyn NhaorclSIUCFZBHIO0868-94-55 11:05:005.3[facility] IymxjhiGEZTSBXHEP8678-29-83 11:05:0082.8[facility] UhdkizuZDZAOUYYPO8943-97-42 11:05:002.65[facility] ZKWDNVRCXR9469-79-93 11:05:008.7[facility] HermannCHEM URIFI6241-66-40 05:26:005.7 [facility] FtdnhryYBXJGGCVMXJO6399-83-05 05:26:98217Dvhcjlur HermannELECTROLYTES 2018-03-28 05:26:004.9[facility] JnnriuaGPNYCKLCWSBL4920-00-53 05:26:55077Xirdjoir UvhhkigDFZSMTYJGPIQ0184-01-79 05:26:02632Kqabhmqb GislqgaIUWUTTEPTGHY0817-63-60 05:26:0067[facility] KjnkorcTLMPDNDJVWSM9592-41-41 05:26:008.79[facility] ZDWKEHUTWEOE9995-26-84 05:26:0013.9[facility] SxloimqGAXMKZMIUJOQ3301-65-16 05:26:008.1[facility] MnftiyuSIITIPHTVNRS8415-34-28 05:26:0026[facility] BGXKGMPKCEVY9535-92-40 05:26:008[facility] XfdfvxiBGHOBLRCSZ2487-00-95 05:26:00 Negative *NA*(03/28/18 12:26 AM)[facility] HermannPARATHYROID SDZCYUP8748-38-06 05:26:97300.3[facility] HermannPARATHYROID XZTLVMY6032-94-09 18:43:04619.7[facility] HermannCHEM HGUCU2669-64-70 17:20:007[facility] HermannCHEM CTKOE8589-70-00 17:20:0015.4[facility] HermannCHEM RWUUZ5892-26-37 17:20:004.4[facility] HermannCHEM PGICG8394-62-15 17:20:02635Mlzasqsh HermannCHEM KEAZF5879-85-79 17:20:0021 [facility] HermannCHEM GZJWN3796-95-87 17:20:008.6[facility] HermannCHEM PANEL 2018-03-27 17:20:13535Hoxtyopi HermannCHEM YCGHM3053-82-27 17:20:008.87[facility] HermannCHEM KVWWX2286-92-58 17:20:24038Ppifwwip HermannCHEM SMYMK5859-91-04 17:20:0064[facility] HermannURINE UESL4447-78-07 17:20:90008.1[facility] URINE JYCW6023-11-43 17:20:144546Kveybmmb HermannURINE ALVM3933-94-95 17:20:0024 (03/27/18 12:20 PM)[facility] HermannURINE SJAR3943-97-59 17:20:591736Pdxkriuv HermannCARDIAC UPJSMBH9945-76-56 06:17:34693Zxbnjkyp HermannCHEM CKHAH2223-54-94 06:17:005.0[facility] WfynldnSLZJZAJDZUIY0008-37-08 06:17:0014.4[facility] SKAPZQSVMCXU7177-18-69 06:17:007[facility] UwhoshbKIXQMEIRSCYZ1418-42-42 06:17:00 122[facility] NxisooiUTSTLHMXJRCW7251-96-02 06:17:005.4[facility] DXINDENGXNBO8496-74-77 06:17:0071[facility] XedbyhnVYRGTDSLRZSD7035-59-94 06:17:00 8.81[facility] HnpmamaDAIGSGQXZAFD6290-81-24 06:17:09494Iomnwvgo [facility] MZXCPIBLJKON7865-67-88 06:17:0020[facility] HctuvdgJIEXPOZVXHFM0154-30-33 06:17:00 108[facility] HvpjklnNGIOABHGJLYF6207-37-08 06:17:008.4[facility] HermannHEMATOLOGY 2018-03-27 06:17:0014.7[facility] DviufzyXMYJTAFFSF1331-45-35 06:17:0072.0[facility] NassumxXGHNKJMIHP1690-04-58 06:17:001.0[facility] YhkowhmDSEXFQKJSN4973-33-94 06:17:009.7[facility] NimkmevCJPBODEIOP0106-68-54 06:17:002.6[facility] NASKMXBHFX2994-15-02 06:17:000.9[facility] NdgerrqBAQLIETNJP0577-76-14 06:17:000.6 [facility] HmwoivoBTZHLCBKAP7581-85-58 06:17:004.2[facility] HermannHEMATOLOGY 2018-03-27 06:17:000.1[facility] PzutrmqGLEJZPVANK4333-86-66 06:17:000.2[facility] NkoifiqTSHGDYGKLS5045-38-73 06:17:009.0[facility] SfgfxhlSSIZAVYJQZ1881-36-09 06:17:75445Fwktfqlp LurrgkfRQHUYGACFP6249-60-34 06:17:0013.4[facility] WWGBEZDSLO2472-95-94 06:17:005.8[facility] RjpvsawZDHHJCANKF5153-09-42 06:17:00 2.69[facility] ZthasshJPPQMIJYJU8495-63-61 06:17:00 Test Item Value Reference Range Interpretation Comments MCH (test code = MCH) 29.8 pg 27.0-31.0 [facility] QzmkskwCIOVXDLZHC6006-29-96 06:17:0086.4[facility] HermannHEMATOLOGY 2018-03-27 06:17:0023.2[facility] WwjypagAFSOSVMVTO0095-67-96 06:17:008.0[facility] IucsmefUDFKXNTYJB7418-34-27 06:17:0034.5[facility] TohsrqsBSFUYWIOBD3939-85-93 06:17:00Negative *NA*(03/27/18 1:17 AM)[facility] KpqclkzWGTZXXBWFD0084-30-18 06:17:00Non-Reactive (03/27/18 1:17 AM)[facility] DxizfmmYKECJOVMSF4911-13-32 06:17:00Negative *NA*(03/27/18 1:17 AM)[facility] VbatdwvKSBURNQBKQ3566-59-92 06:17:00Negative *NA*(03/27/18 1:17 AM)[facility] NyjzimaAJLXNQDGIU7655-96-72 06:17:00Negative *NA*(03/27/18 1:17 AM)[facility] TqbmoljBSJDWGOLBT8539-46-90 06:17:00Negative *NA*(03/27/18 1:17 AM)[facility] KlefwkfBROWCVRFPU2921-11-83 06:17:00Negative *NA*(03/27/18 1:17 AM)[facility] HermannCARDIAC QDOHXQO7193-87-01 20:03:59840Rkflzlci HermannCHEM ZSRPI2896-60-08 08:05:005.6[facility] HermannCHEM LMAVG1638-77-84 08:05:001.9[facility] AvgoxilKVNPMXUSYK8041-00-12 08:05:000.5 [facility] HvanlkaKQAAUMBYRF7152-65-45 08:05:000.7[facility] HermannHEMATOLOGY 2018-03-26 08:05:002.3[facility] ZygxtklQYXCRIQLIY9808-56-57 08:05:000.9[facility] MynfshsCBPROAUELT6088-45-13 08:05:003.7[facility] MwgxdkdMIMPYBPRAW3163-85-73 08:05:0069.2[facility] OzacnwkUMTRSHMJHL5141-15-58 08:05:0010.1[facility] BGXGGYFIGJ8843-42-01 08:05:0017.7[facility] OpcirksNDDAHFHBMG4437-57-08 08:05:00 0.1[facility] DputjmeWKKDVKCPMV4929-12-19 08:05:008.9[facility] HermannHEMATOLOGY 2018-03-26 08:05:24240Xjbvmeev AlsnlmsEFCIYNUZCP6932-51-85 08:05:00 Test Item Value Reference Range Interpretation Comments MCH (test code = MCH) 29.8 pg 27.0-31.0 [facility] NhpukmoAFCDOVMAXE3866-65-09 08:05:0085.5[facility] HermannHEMATOLOGY 2018-03-26 08:05:0013.0[facility] FblixunMWKCAVVPAQ7343-43-63 08:05:0034.9[facility] HpwrcvnKVHMYTAWUY9756-20-17 08:05:0022.9[facility] ComzihcCTVUILMNOG8958-28-31 08:05:008.0[facility] CfcviznABYVSWPXGH5029-67-30 08:05:002.68[facility] XHFNAOWJXK8851-02-71 08:05:005.3[facility] HermannCHEM OEHXS0038-18-24 08:18:001.6 [facility] LryrksbAWCABDXGTA5691-18-17 08:18:003.9[facility] HermannHEMATOLOGY 2018-03-25 08:18:000.2[facility] QtvqwbyJPTHPGCZEJ0677-75-44 08:18:000.emorial SaatlepWIGZJZFOJP7862-83-75 08:18:000.9[facility] WjzsduoKAAFCWAPCQ1195-97-82 08:18:000.7[facility] AqvvfpxGKPHPEVGTJ6843-38-45 08:18:0069.1[facility] BDNJUSBDTN1021-68-22 08:18:0010.6[facility] IufbrxpGZFJGBCFVP8060-55-64 08:18:00 2.7[facility] NpdkrzaBOVORMEVSD9195-25-07 08:18:0016.9[facility] HermannHEMATOLOGY 2018-03-25 08:18:005.6[facility] TxqtwfaANWDBFGXSA9222-77-10 08:18:008.1[facility] VnwgbfrQIWRHHHJMK5481-24-25 08:18:002.68[facility] PjnjbapMMJZHYYJFN9972-89-23 08:18:0085.7[facility] IyxxvzeHTOCVCOJQT0778-22-98 08:18:00 Test Item Value Reference Range Interpretation Comments MCH (test code = MCH) 30.1 pg 27.0-31.0 [facility] YbwqgvdFFOCTOMLFF0243-69-28 08:18:0035.2[facility] HermannHEMATOLOGY 2018-03-25 08:18:0023.0[facility] QkugaxxLPHMJNVQOS1827-43-31 08:18:0013.3[facility] KowrchtWYZNEOVJGF9250-03-34 08:18:24280Hzqwheog FxedxwcVQVGJNYAZR8477-21-22 08:18:009.0[facility] HermannPARATHYROID NBSBYFX1757-75-09 08:18:001.07[facility] HermannPARATHYROID LCKEDXW8903-87-77 08:18:001.14[facility] HermannCHEM PANEL 2018-03-24 10:28:001.7[facility] HermannPARATHYROID QVGNGDO8659-45-68 10:28:001.06 [facility] HermannPARATHYROID JPKXNQS0025-28-36 10:28:001.09[facility] DHOEROCAOUJCT6619-21-97 19:11:000.118[facility] HermannPARATHYROID PROFILE 2018-03-23 08:06:001.09[facility] HermannPARATHYROID HYOGNGW1848-16-66 08:06:00 1.04[facility] HermannBACTERIAL - LZDGHBBT9274-58-90 10:41:00Negative (03/22/18 5:41 AM)[facility] HermannCHEM BXFLI7266-94-95 10:41:00 Test Item Value Reference Range Interpretation Comments B/C Ratio (test code = B/C Ratio) 7 1 6-25 [facility] HermannCHEM YAZAL3360-17-94 10:41:003.8[facility] HermannCHEM PANEL 2018-03-22 10:41:00 Test Item Value Reference Range Interpretation Comments A/G Ratio (test code = A/G Ratio) 0.8 1 0.7-1.6 [facility] PKSMA8728-29-69 10:41:0011[facility] HermannCHEM PANEL 2018-03-22 10:41:000.2[facility] HermannCHEM VYHQP2524-13-95 10:41:0069[facility] HermannCHEM ECGTQ7395-82-76 10:41:007.0[facility] HermannCHEM DFVHX3108-00-07 10:41:0021[facility] HermannCHEM CVOEK3671-16-60 10:41:003.2[facility] UPROWFQGQNONJ4306-88-14 10:41:00 Test Item Value Reference Range Interpretation Comments Aldos/Renin Ratio 4.0 1 See_Comment [Automate d message] The (test code = system which ge nerated this Aldos/Renin Ratio) result tr ansmitted reference range : <=30.0. The reference r ayse was not used to interpr et this result as vaughn l/abnormal. [facility]KzebfxeLEZQZGWBDTUOI9259-24-78 10:41:001.095[facility] RFAHWXSRNKWVV2335-16-97 10:41:004.4[facility] CenterXzgynyaDCUXLOASQI2800-16-40 10:41:00 Test Item Value Reference Range Interpretation Comments PTT (test code = PTT) 30.8 s 22.9-35.8 [facility] BnxduwmCGVEALWRHL4353-60-54 10:41:00 Test Item Value Reference Range Interpretation Comments INR (test code = INR) 1.16 1 0.85-1.17 [facility] WwpyrlbBVMNJSUIUI8530-93-98 10:41:00 Test Item Value Reference Range Interpretation Comments PT (test code = PT) 14.8 s 12.0-14.7 [facility] SbpkvsmYAKADSZJRR8064-22-32 10:41:000.1[facility] BwppovrYNKKOT8321-64-74 10:41:00 Test Item Value Reference Range Interpretation Comments CHD Risk (test code = CHD Risk) 6.04 1 4.00-7.30 [facility] NyzsxiwXSTCFL5694-53-59 10:41:0057[facility] EavgpqvZOLDZT2673-01-99 10:41:0024[facility] KgmcyecNZLIRA4826-17-34 10:41:23930Bbbwqtyx HermannLIPIDS 2018-03-22 10:41:06883Ikfmylcc MxytnfxZRCMEW0806-53-61 10:41:00 Test Item Value Reference Range Interpretation Comments VLDL (test code = VLDL) 64 1 [facility] HermannSPECIAL RNIDLGPKJ8229-08-55 10:41:005.2[facility] HermannURINE ARXM8716-83-08 10:41:0085[facility] HermannURINE MNVE1877-67-60 10:41:0055[facility] HermannURINE FYHO6126-56-74 10:41:000.2[facility] HermannURINE HXQV3505-31-17 10:41:0072.8[facility] HermannCHEM FSGCN5535-06-01 07:20:29481Bqcmgpny [facility] NFSARXIEYX9532-71-57 07:20:00Negative *NA*(03/22/18 2:20 AM)[facility] HermannURINE DJLV0752-56-97 07:20:0050.80[facility] HermannURINE MLGK8609-80-17 07:20:70646.5 [facility]annURINE MCMU0415-56-49 07:20:00 Test Item Value Reference Range Interpretation Comments U Prot/Creat (test code = U 3.08 1 Prot/Creat) [facility]annURINE GXSY9950-99-31 07:20:0050.80[facility] HermannURINE CHEM 2018-03-22 07:20:0079[facility] HermannURINE KPER7754-41-51 07:20:0010.1[facility] HermannURINE UWVR8690-46-84 07:20:74505Lowoatix HermannURINE AND GXETR5689-07-31 05:21:54Yellow *NA*(03/22/18 12:21 AM)[facility]annURINE AND GWNJL9683-10-87 05:21:54Clear (03/22/18 12:21 AM)[facility]annURINE AND YQLSN0968-72-86 05:21:54 Test Item Value Reference Range Interpretation Comments UA Spec Grav (test code = UA Spec 1.025 1 Grav) [facility]annURINE AND TJLDM4345-63-12 05:21:54Negative (03/22/18 12:21 AM) [facility]annURINE AND MGQPI1018-91-40 05:21:54Negative *NA*(03/22/18 12:21 AM)[facility]annURINE AND KXETE3700-20-92 05:21:54Negative *NA*(03/22/18 12:21 AM)[facility]annURINE AND RNZOO4412-56-50 05:21:540.2[facility] HermannURINE AND WTRBS9591-13-50 05:21:54Negative (03/22/18 12:21 AM)[facility]annURINE AND KGOBT6166-40-93 05:21:54Negative (03/22/18 12:21 AM)[facility]annURINE AND RACXD0252-84-04 05:21:54Moderate *ABN*(03/22/18 12:21 AM)[facility]annURINE AND QTPZM6451-16-37 05:21:54Performed (03/22/18 12:21 AM)[facility]annURINE AND QWHDK6852-58-99 05:21:54None Seen (03/22/18 12:21 AM)[facility]annURINE AND OUPZB8410-26-62 05:21:54 Test Item Value Reference Range Interpretation Comments UA pH (test code = UA pH) 5.5 1 5.0-8.0 [facility]annURINE AND ZPUBI7881-65-55 05:21:54None Seen (03/22/18 12:21 AM) [facility] HermannCARDIAC KLFHXBP7082-47-44 03:42:0010.1[facility]CARD[facility] ICXYZYD2212-15-56 03:42:00 Test Item Value Reference Range Interpretation Comments CK MB Index (test 1.9 1 See_Comment [Automate d message] The code = CK MB Index) system w [facility] generated this result transmit manuel reference range : <=2.5. The reference range was not used to interpr et this result as vaughn l/abnormal. [facility] HermannCARDIAC GNVLZEP0778-63-36 03:42:19279Cgghzvly HermannCHEM PANEL 2018-03-22 03:42:001.1[facility]
[2021-02-25 11:07] LABS: Absolute Lymphocytes (CBC) 0.5 K/uL (0.7-4.9); Basophils % 0.5 % (0-1.3); Hematocrit 28.9 % (39.6-49.0); Lymphocytes % 6.6 % (15.3-44.8); MPV 8.1 fL (7.6-11.3); RBC Red Blood Cell Count 2.97 M/uL (4.33-5.43)
[2021-02-25 11:15] LABS: Potassium 4.1 mmol/L (3.5-5.1)
[2021-02-25] MEDS ORDERED: ACETAMINOPHEN 500 MG TAB ONE (11:17)
--- NOTE | 2021-02-25 11:59 | RAD REPORT ---
EXAM DESCRIPTION: RAD - Chest Single View - 02/25/2021 11:34 am CLINICAL HISTORY: DYSPNEA COMPARISON: Chest Single View dated 01/28/2021; Chest Single View dated 09/13/2019; Chest Single View d ated 07/31/2019; Chest Pa And Lat (2 Views) dated 07/30/2019 FINDINGS: Lines: None. Lungs: Increased hazy bilateral airspace disease peer Pleural: Blunting of the costophrenic angles. Cardiac: Cardiomegaly. Bones: No acute fractures. Other: IMPRESSION: Pulmonary edema suspected but difficult to entirely exclude. .
[2021-02-25 12:26] LABS: SARS-COV-2 RT PCR NEGATIVE (NEGATIVE)
[2021-02-25 14:48] LABS: Urine Blood 2+ (Negative); Urine Glucose Negative (Negative); Urine Protein 3+ (Negative); Urine Specific Gravity 1.025 (1.005-1.030)
[2021-02-25 16:39] LABS: Urine Bacteria <20 /HPF (NONE SEEN); Urine RBC <5 /HPF (NONE SEEN)
--- NOTE | 2021-02-25 16:43 | ER ---
Nurse's Notes [facility] Briseyda Name: Shahbazrarayna White Age: 50 yrs Sex: Male : 1970 Arrival Date: 02/25/2021 Time: 09:55 Bed 15 Private MD: Kiko Culp Diagnosis: Fever, unspecified;UTI/ Urinary tract infection, site not specified Presentation: 02/25 10:10 Chief complaint: Patient states: Sent from dialysis due to fever, shortness of breath x jl7 3 days. Coronavirus screen: Vaccine status: Patient reports receiving the 2nd dose of the covid vaccine. Date December 2020 [employer] fever, shortness of breath, Client presents with at least one sign or symptom that may indicate coronavirus-19. Standard/surgical mask placed on the client. Provider contacted for isolation considerations. Ebola Screen: No symptoms or risks identified at this time. Initial Sepsis Screen: Does the patient meet any 2 criteria? RR > 20 per min. Temp <36.0*C (96.8*F)) or > 38.3*C (100.9*F). HR > 90 bpm. Yes Does the patient have a suspected source of infection? Yes: Productive cough/pneumonia. Risk Assessment: Do you want to hurt yourself or someone else? Patient reports no desire to harm self or others. Onset of symptoms was February 22, 2021. 10:10 Method Of Arrival: Wheelchair jl7 10:10 Acuity: YESENIA 3 jl7 Triage Assessment: 10:13 General: Appears in no apparent distress. uncomfortable, Behavior is calm, cooperative, jl7 appropriate for age. Pain: Denies pain. Historical: - Allergies: 10:13 Morphine (Vomiting); jl7 - PMHx: 10:13 TIA; Diabetes - NIDDM; Dialysis; T,T,S; Hypertension; PERITONEAL DIALYSIS ; not being jl7 done now; stage 5 CKD; - Immunization history:: Client reports receiving the 2nd dose of the Covid vaccine, Date received: December 2020 [employer]. - Social history:: Smoking status: Patient denies any tobacco usage or history of. Screenin:49 Abuse screen: Denies threats or abuse. Nutritional screening: No deficits noted. kh1 Tuberculosis screening: No symptoms or risk factors identified. Fall Risk Gait- Weak (10 pts.). Assessment: 10:47 General: Appears in no apparent distress. Behavior is calm, cooperative. Pain: kh1 Complains of pain in abdomen Pain does not radiate. Pain currently is 5 out of 10 on a pain scale. Neuro: No deficits noted. Cardiovascular: Rhythm is sinus tachycardia. Respiratory: Reports shortness of breath on exertion. GI: Reports diarrhea. : Reports. 12:00 Reassessment: Patient appears in no apparent distress at this time. No changes from [facility] previously documented assessment. Patient and/or family updated on plan of care and expected duration. Pain level reassessed. Patient is alert, oriented x 3, equal unlabored respirations, skin warm/dry/pink. 13:00 Reassessment: Patient appears in no apparent distress at this time. No changes from [facility] previously documented assessment. Patient and/or family updated on plan of care and expected duration. Pain level reassessed. Patient is alert, oriented x 3, equal unlabored respirations, skin warm/dry/pink. Patient states feeling better. 16:27 Reassessment: Patient appears in no apparent distress at this time. No changes from [facility] previously documented assessment. Patient and/or family updated on plan of care and expected duration. Pain level reassessed. Patient is alert, oriented x 3, equal unlabored respirations, skin warm/dry/pink. Vital Signs: 10:10 BP 158 / 60; Pulse 106; Resp 21; Temp 102.3(O); Pulse Ox 90% on R/A; Weight 149.69 kg; jl7 Height 6 ft. 1 in. (185.42 cm) (R); 10:45 BP 150 / 106; Pulse 110; Resp 20; Temp 101.2(O); Pulse Ox 95% on R/A; kh1 12:00 BP 155 / 96; Pulse 89; Resp 20; Temp 98.4; Pulse Ox 94% on R/A; kh1 15:02 BP 152 / 96; Pulse 93; Resp 18; Temp 97.7(TE); Pulse Ox 95% ; kh1 10:10 Body Mass Index 43.54 (149.69 kg, 185.42 cm) jl7 ED Course: 09:55 Patient arrived in ED. mr 09:55 Kiko Culp DO is Private Physician. mr 10:13 Triage completed. jl7 10:13 Arm band placed on right wrist. jl7 10:36 Merari Telles FNP-C is [facility]. kb 10:36 Cornel Yuan MD is Attending Physician. kb 10:45 Stephanie Torres is Primary Nurse. kh1 10:49 Patient has correct armband on for positive identification. Placed in gown. Bed in low kh1 position. Call light in reach. Side rails up X 1. 10:49 Inserted saline lock: 20 gauge in right forearm, using aseptic technique. Blood kh1 collected. 10:50 No provider procedures requiring assistance completed. kh1 11:10 Blood Culture Adult (2) Sent. kh1 11:10 Lactate Sent. kh1 11:10 Basic Metabolic Panel Sent. kh1 11:10 CBC with Diff Sent. kh1 11:35 Chest Single View XRAY In Process Unspecified. EDMS 14:49 Urine Microscopic Only Sent. kh1 16:58 IV discontinued, intact, bleeding controlled, No redness/swelling at site. Pressure kh1 dressing applied. Administered Medications: No medications were administered Outcome: 16:42 Discharge ordered by . kb 16:58 Discharged to home ambulatory. kh1 16:58 Condition: good 16:58 Discharge instructions given to patient. 18:17 Patient left the ED. ss Signatures: Dispatcher [employer] EDMS Merari Telles FNP-C PLATFORM WORKER-Cklilia Bri Noriega mr Мария Culp, RN RN Debo Walls RN RN Stephanie Monzon [facility] Corrections: (The following items were deleted from the chart) 11:36 11:11 Influenza Screen (A \T\ B)+BA.LAB.BRZ drawn and sent. kh1 EDMS 11:39 11:11 CORONAVIRUS+MR.LAB.BRZ drawn and sent. kh1 EDMS
--- NOTE | 2021-02-25 16:44 | EDPHYS ---
Physician Documentation [facility] Name: Undray White Age: 50 yrs Sex: Male : 1970 Arrival Date: 02/25/2021 Time: 09:55 Bed 15 Private MD: Kiko Culp ED Physician Cornel Yuan HPI: 02/25 16:47 This 50 yrs old Black Male presents to ER via Wheelchair with complaints of Fever. kb 16:47 The patient reports fever, not measured (subjective), with an emergency department kb temperature of 102.3 degrees Fahrenheit. Onset: The symptoms/episode began/occurred today. Modifying factors: there are no obvious modifying factors. Associated signs and symptoms: Pertinent positives: fatigue. Severity of symptoms: At their worst the symptoms were mild in the emergency department the symptoms are unchanged. The patient has not experienced similar symptoms in the past. The patient has been recently seen by a physician:. Pt reports he went to dialysis today and was told he had a fever so he had to come to the ER to be checked for covid. Pt reports fatigue yesterday and intermittent shortness of breath on exertion. States the shortness of breath is due to missing dialysis, but hasn't been bad. Denies cough, congestion. . Historical: - Allergies: 10:13 Morphine (Vomiting); jl7 - PMHx: 10:13 TIA; Diabetes - NIDDM; Dialysis; T,T,S; Hypertension; PERITONEAL DIALYSIS ; not being jl7 done now; stage 5 CKD; - Immunization history:: Client reports receiving the 2nd dose of the Covid vaccine, Date received: December 2020 [employer]. - Social history:: Smoking status: Patient denies any tobacco usage or history of. ROS: 16:46 Abdomen/GI: Negative for abdominal pain, nausea, vomiting, diarrhea, and constipation. kb 16:46 Constitutional: Positive for fatigue, fever. 16:46 Respiratory: Positive for dyspnea on exertion. 16:46 All other systems are negative. Exam: 16:46 Constitutional: This is a well developed, well nourished patient who is awake, alert, kb and in no acute distress. Head/Face: Normocephalic, atraumatic. ENT: Moist Mucous membranes Cardiovascular: Regular rate and rhythm with a normal S1 and S2. No gallops, murmurs, or rubs. No pulse deficits. Respiratory: Respirations even and unlabored. No increased work of breathing, no retractions or nasal flaring. Abdomen/GI: Soft, non-tender. No distention Skin: Warm, dry with normal turgor. Normal color. MS/ Extremity: Pulses equal, no cyanosis. Neurovascular intact. Full, normal range of motion. Neuro: Awake and alert, GCS 15, oriented to person, place, time, and situation. Moves all extremities. Normal gait. Psych: Awake, alert, with orientation to person, place and time. Behavior, mood, and affect are within normal limits. Vital Signs: 10:10 BP 158 / 60; Pulse 106; Resp 21; Temp 102.3(O); Pulse Ox 90% on R/A; Weight 149.69 kg; jl7 Height 6 ft. 1 in. (185.42 cm) (R); 10:45 BP 150 / 106; Pulse 110; Resp 20; Temp 101.2(O); Pulse Ox 95% on R/A; kh1 12:00 BP 155 / 96; Pulse 89; Resp 20; Temp 98.4; Pulse Ox 94% on R/A; kh1 15:02 BP 152 / 96; Pulse 93; Resp 18; Temp 97.7(TE); Pulse Ox 95% ; kh1 10:10 Body Mass Index 43.54 (149.69 kg, 185.42 cm) jl7 MDM: 10:36 Patient medically screened. megan 16:23 Data reviewed: vital signs, nurses notes. Data interpreted: Pulse oximetry: on room air kb is 95 %. Interpretation: normal. Counseling: I had a detailed discussion with the patient and/or guardian regarding: the historical points, exam findings, and any diagnostic results supporting the discharge/admit diagnosis, lab results, the need for outpatient follow up, a family practitioner. 16:45 ED course: Pt is nontoxic in appearance, in no distress. States he only came because [facility] told him he had to be checked for covid. . 02/25 10:27 Order name: CBC with Diff; Complete Time: 11:17 ss 02/25 10:27 Order name: Basic Metabolic Panel; Complete Time: 11:29 ss 02/25 10:27 Order name: Lactate; Complete Time: 11:17 ss 02/25 10:27 Order name: Blood Culture Adult (2) ss 02/25 10:36 Order name: Chest Single View XRAY; Complete Time: 12:02 kb 02/25 12:27 Order name: COVID-19/FLU A+B; Complete Time: 12:27 EDMS 02/25 12:35 Order name: [place] Screen Profile; Complete Time: 13:48 kb 02/25 12:35 Order name: Urine Microscopic Only; Complete Time: 16:41 kb 02/25 14:47 Order name: Urine Dipstick-Ancillary; Complete Time: 14:49 EDMS 02/25 16:41 Order name: Urine Culture EDMS 02/25 12:35 Order name: Urine Dipstick-Ancillary (obtain specimen); Complete Time: 14:49 kb 02/25 12:35 Order name: Vital Signs; Complete Time: 15:03 kb Administered Medications: No medications were administered Disposition: 02/26 08:18 Co-signature as Attending Physician, Cornel Yuan MD I agree with the assessment and adrian plan of care. Chart complete. Disposition Summary: 02/25/21 16:42 Discharge Ordered Location: Home kb Condition: Stable kb Diagnosis - Fever, unspecified kb - UTI/ Urinary tract infection, site not specified kb Followup: kb - With: Emergency Department - When: As needed - Reason: Worsening of condition Followup: kb - With: Private Physician - When: 2 - 3 days - Reason: Recheck today's complaints, Continuance of care, Re-evaluation by your physician Discharge Instructions: - Discharge Summary Sheet kb - Urinary Tract Infection, Adult, [place]-qb-Norm kb Forms: - Medication Reconciliation Form kb - Thank You Letter kb - Antibiotic Education kb - Prescription Opioid Use kb Prescriptions: - Cipro 250 mg Oral Tablet - take 1 tablet by ORAL route once daily; 10 tablet; Refills: 0, Product kb Selection Permitted Signatures: Dispatcher [employer] EDMerari Lozada, DRAPERY HAND-C DRAPERY HAND-Cornel Garzon MD MD cha Leal, Jahala, RN RN jl7 Corrections: (The following items were deleted from the chart) 02/25 11:36 10:18 Influenza Screen (A \T\ B)+BA.LAB.BRZ ordered. EDMS EDMS 11:39 10:18 CORONAVIRUS+MR.LAB.BRZ ordered. EDMS EDMS 14:29 14:21 Chest For PE Angio+CT.RAD.BRZ ordered. EDMS EDMS
[2021-02-25 18:27] VITALS: BP 152/96; TEMP 97.7; O2SAT 95
== END 2021-02-25 18:17 | disposition home or self-care (01) ==
LOC: ER 09:53
DX: N39.0 Urinary tract infection, site not specified (principal); E11.22 Type 2 diabetes mellitus with diabetic chronic kidney disease; I12.0 Hypertensive chronic kidney disease with stage 5 chronic kidney disease or end stage renal disease; N18.5 Chronic kidney disease, stage 5; Z99.2 Dependence on renal dialysis; Z88.5 Allergy status to narcotic agent; Z20.822 Contact with and (suspected) exposure to COVID-19
CPT/HCPCS: 87040 ×2; 87088; 85025; 87086; 80048; 36415; 86308; 83605; 87077; 87186; 0240U; 71045; 99284; 81003; 81015

== ENCOUNTER 2021-10-11 16:32 | Emergency (ER) | payer OTHER ==
--- OUTSIDE RECORDS SUMMARY | 2021-10-11 16:40 | XMS REPORT | Continuity of Care Document ---
:1970 Author Organization [facility] t Address [address] [place] [address] Care Team Providers Name Role Phone Asked, Pcp Primary Care Physician Unavailable Irasema Tee Attending Clinician Unavailable MD CHRIS SHERMAN Attending Clinician Unavailable LANE Attending Clinician Unavailable Caden JAMESON Attending Clinician Unavailable Rosamaria Castillo RN Attending Clinician Justice FOLEY Attending Clinician Unavailable Radames JAMESON Attending Clinician Unavailable MD CHRIS SHERMAN Admitting Clinician Unavailable Payers Payer Name Policy Type Policy Number Effective Date Expiration Date S ource Problems Condition Condition Condition Status Onset Resolution Last Treating Co mments Source Name Details Category Date Date Treatment Clinician Date SENT BY Diagnosis Active 2018-10-24 Memoria / DIALYSIS 10-24 11:05:00 l SENT BY 00:00: Pineda ENRIQUEZ / Epifanio DIALYSIS Active 10/24/2018 [facility] CHRONIC Diagnosis Active 2018-10-02 Me moria KIDNEY 3-14 14:46:00 l DISEASE, CHRONIC 00:00: Aurelia moon STAGE 5 KIDNEY 00 DISEASE, STAGE 5 Active 09/06/2018 [facility] HYPERKALEM Diagnosis Active 2018-03-27 Memoria IA 03-21 09:26:00 l 00:00: Pineda HYPERKALEM 00 IA Active [facility] DRJan Diagnosis Active 2018-03-21 Mem oria REFERRAL 03-21 22:20:[address] 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 disease 10/15/2018 [facility] Personal Problem 2018-10-15 Mem oria history of 12:46:18 l transient Personal Her oliva ischemic history of attack transient (TIA), and ischemic cerebral attack infarction (TIA), and without cerebral residual infarction deficits without residual deficits 10/15/2018 [facility] Hyperkalem Problem 2018-10-15 M emoria ia 12:46:18 l Pineda Hyperkalem ia 10/15/2018 [facility] Anemia in Problem 2018-10-15 Me moria chronic 12:46:18 l kidney Anemia [place] disease in chronic kidney disease 10/15/2018 [facility] 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) 12:46:18 l use of Long [place] oral term hypoglycem (current) ic drugs use of oral hypoglycem ic drugs 10/15/2018 [facility] Hypomagnes Problem 2018-10-15 M emoria emia 12:46:18 l Pineda Hypomagnes emia 9 [facility] Morbid Problem 2018-10-15 Memor ia (severe) 12:46:18 l obesity Morbid [place] due to (severe) excess obesity calories due to excess calories 10/15/2018 [facility] Hypertroph Problem 2018-10-15 M emoria ic scar 12:46:18 l Pineda Hypertroph ic scar 10/15/2018 [facility] Other Problem 2018-10-15 Memor ia disorders 12:46:18 l of Other Pineda phosphorus disorders metabolism of phosphorus metabolism 10/15/2018 [facility] 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:46:18 l mellitus Type 2 William n with diabetes unspecifie mellitus d diabetic with retinopath unspecifie y without d diabetic macular retinopath edema y without macular edema 10/15/2018 [facility] 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:46:18 l 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 10/15/2018 [facility] Hyperlipid Problem 2018-10-15 M emoria emia, 12:46:18 l unspecifie William n d Hyperlipid emia, unspecifie d 10/15/2018 [facility] Transient Problem Resolve 2018-10-27 M emoria ischemic d 00:00:48 l attack Pineda (disorder) Transient ischemic attack (disorder) Resolved Problem 10/27/2018 [facility] Diabetes Problem Active 2018-10-27 Mem oria mellitus 00:00:48 l (disorder) Diabetes He rmann mellitus (disorder) Active Problem 10/27/2018 not taking meds-taken off meds b/c of "kidney disease" [facility] End stage Problem Active 2018-10-27 Me moria renal 00:00:48 l disease End Pineda (disorder) stage renal disease (disorder) Active Problem 10/27/2018 [facility] Hypertensi Problem Active 2018-10-27 M emoria ve 00:00:48 l disorder, Pineda systemic Hypertensi arterial ve (disorder) disorder, systemic arterial (disorder) Active Problem 10/27/2018 [facility] Osteoarthr Problem Active 2018-10-27 M emoria itis 00:00:48 l (disorder) William n Osteoarthr itis (disorder) Active Problem 10/27/2018 [facility] Acute Problem 2018-10-15 Memor ia kidney 12:46:18 l failure Acute Pineda with 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 10/15/2018 [facility] Acidosis Problem 2018-10-15 Mem oria 12:46:18 l Acidosis William n 10/15/2018 [facility] History of Past Illness Condition Condition Condition Status Onset Resolution Last Treating Co mments Source Name Details Category Date Date Treatment Clinician Date End stage Problem 2018-10-27 2018-10-27 Memoria renal 5- 00:00:48 00:00:48 l disease End 17:00: [place] stage 00 renal disease 10/24/2018 10/27/2018 [facility] Hypertensi Problem 2017-062018-10-15 2018-10-15 Memoria ve 0-12 12:46:18 12:46:18 l emergency 03:05: Pineda Hypertensi 37 ve emergency 04/06/2018 10/15/2018 [facility] Allergies, Adverse Reactions, Alerts Allergy Allergy Status Severity Reaction(s) Onset Inactive Treating Comm ents Source Name Type Date Date Clinician Morphine Propensi Active Other (See vomiting Methodi ty to Comments) 12-02 st adverse 00:00: Hospita reaction 00 l s to drug MOPRPHIN DA Active [place] VOMITTING 2019-06 [facility] E 0-30 Clear 00:00: Benítez 00 [facility] morphine morphine Active Memori a 6-22 l 00:00: [place] 00 Family History Family Member Diagnosis Comments Start Date Stop Date Source Natural mother Hypertension [facility] Social History Social Habit Start Date Stop Date Quantity Comments Source Alcohol intake 2020-04-05 2020-04-05 Current drinker [facility] 00:00:00 00:00:00 of alcohol Hospital (finding) Social History 2018-03-22 2018-03-22 [facility] 10:01:54 10:01:54 Sex [facility][birth year] At [birth year] [facility] Smoking Status Start Date Stop Date Source [facility] smoker [facility] Medications Ordered Filled Start Stop [...] Hospita 00 l gabapentin Yes [facility] (NEURONTIN) 4-[facility] 300 mg 00:00: Hospita capsule 00 l amoxicillin Yes [facility] (AMOXIL) [address] [facility] 500 MG 00:00: Hospita capsule 00 l acetaminoph Yes [facility] en-codeine [facility] (TYLENOL 00:00: Hospita WITH 00 l CODEINE #3) 300-30 mg per tablet amitriptyli Yes [facility] ne (ELAVIL) 14 st 50 MG 00:00: Hospita tablet 00 l gabapentin Yes Notes: Memor ia 300 MG Oral 09-24 (Same as: l Capsule 17:04: Neurontin) Herm nicola gabapentin Yes Notes: Memor ia 300 MG Oral 09-24 (Same as: l Capsule 17:04: Neurontin) Herm nicola gabapentin Yes Notes: Memor ia 300 MG Oral 09-24 (Same as: l Capsule 17:04: Neurontin) Herm nicola Oxycodone 2018-0 No 5 mg, Memoria Hydrochlori - Route: PO, l de 5 MG 16:59: Drug form: Herm nicola Oral Tablet 00 TAB, ONCE, Dosing Weight 161.364, kg, PRN Pain Score 4-6, Start date: 09/24/18 11:59:00 CDT Oxycodone 2019-0 No 5 mg, Memoria Hydrochlori - Route: PO, l de 5 MG 16:59: Drug form: Herm nicola Oral Tablet 00 TAB, ONCE, Dosing Weight 161.364, kg, PRN Pain Score 4-6, Start date: 09/24/18 11:59:00 CDT Oxycodone 2019-0 No 5 mg, Memoria Hydrochlori - Route: PO, l de 5 MG 16:59: Drug form: Herm nicola Oral Tablet 00 TAB, ONCE, Dosing Weight 161.364, kg, PRN Pain Score 4-6, Start date: 09/24/18 11:59:00 CDT Naloxone 2018-0 No Notes: Memoria 09-24 Same as l 14:36: Narcan Pineda Flumazenil 2018- No Notes: Memor ia 4- (Same as: l 14:36: Romazicon) [place] Ondansetron No Notes: Manjinder tammy 4- (Same as: l 14:36: Zofran) Pineda 00 MEDICATION WASTE Product Size: 4 mg Product Wasted: ___ mg Naloxone 2019-0 No Notes: Memoria 09-24 Same as l 14:36: Narcan [place] Flumazenil 2018- No Notes: Memor ia 4- (Same as: l 14:36: Romazicon) Pineda Ondansetron 2018- No Notes: Manjinder tammy 4- (Same as: l 14:36: Zofran) Pineda 00 MEDICATION WASTE Product Size: 4 mg Product Wasted: ___ mg Naloxone 2019- No Notes: Memoria 09-24 Same as l 14:36: Narcan [place] Flumazenil No Notes: Memor ia 4- (Same as: l 14:36: Romazicon) [place] Ondansetron 2018- No Notes: Manjinder tammy 4- (Same as: l 14:36: Zofran) [place] 00 MEDICATION WASTE Product Size: 4 mg Product Wasted: ___ mg neostigmine 2019- No Route: IV, Memoria (ANES) 09-24 Drug form: l 14:28: INJ, ONCE, Pineda Stop date: 09/24/18 9:28:00 CDT neostigmine 2018-0 No Route: IV, Memoria (ANES) 09-24 Drug form: l 14:28: INJ, ONCE, [place] Stop date: 09/24/18 9:28:00 CDT neostigmine 2018-0 No Route: IV, Memoria (ANES) 09-24 Drug form: l 14:28: INJ, ONCE, Pineda Stop date: 09/24/18 9:28:00 CDT ondansetron 2018-0 No Route: IV, Memoria (ANES) 09-24 Drug form: l 14:14: INJ, ONCE, [place] Stop date: 09/24/18 9:14:00 CDT ondansetron 2019-0 No Route: IV, Memoria (ANES) 09-24 Drug form: l 14:14: INJ, ONCE, Stop date: 09/24/18 9:14:00 CDT ondansetron 2019-0 No Route: IV, Memoria (ANES) 09-24 Drug form: l 14:14: INJ, ONCE, Stop date: 09/24/18 9:14:00 CDT lidocaine 2019-0 No Route: IV, Me moria (ANES) 09-24 Drug form: l 13:44: INJ, ONCE, Stop date: 09/24/18 8:44:00 CDT glycopyrrol 2019-0 No Route: IV, Memoria ate (ANES) 09-24 Drug form: l 13:44: INJ, ONCE, Stop date: 09/24/18 8:44:00 CDT propofol 2019-0 No Route: IV, Mem oria (ANES) 09-24 Drug form: l 13:44: INJ, ONCE, Stop date: 09/24/18 8:44:00 CDT fentaNYL 2019-0 No Route: IV, Mem oria (ANES) 09-24 Drug form: l 13:44: INJ, ONCE, Stop date: 09/24/18 8:44:00 CDT lidocaine 2019-0 No Route: IV, Me moria (ANES) 09-24 Drug form: l 13:44: INJ, ONCE, Stop date: 09/24/18 8:44:00 CDT glycopyrrol 2019-0 No Route: IV, Memoria ate (ANES) 09-24 Drug form: l 13:44: INJ, ONCE, Stop date: 09/24/18 8:44:00 CDT ceFAZolin 2019-0 No Route: IV, Me moria (ANES) 09-24 Drug form: l 13:44: INJ, ONCE, Stop date: 09/24/18 8:44:00 CDT propofol 2019-0 No Route: IV, Mem oria (ANES) 09-24 Drug form: l 13:44: INJ, ONCE, Pineda 00 Stop date: 09/24/18 8:44:00 CDT fentaNYL 2019-0 No Route: IV, Mem oria (ANES) 09-24 Drug form: l 13:44: INJ, ONCE, Stop date: 09/24/18 8:44:00 CDT ceFAZolin 2019-0 No Route: IV, Me moria (ANES) 09-24 Drug form: l 13:44: INJ, ONCE, Stop date: 09/24/18 8:44:00 CDT cisatracuri 2018-0 No Route: IV, Memoria um (ANES) 09-24 Drug form: l 13:44: INJ, ONCE, Stop date: 09/24/18 8:44:00 CDT cisatracuri 2018-0 No Route: IV, Memoria um (ANES) 09-24 Drug form: l 13:44: INJ, ONCE, Stop date: 09/24/18 8:44:00 CDT lidocaine 2019-0 No Route: IV, Me moria (ANES) 09-24 Drug form: l 13:44: INJ, ONCE, Stop date: 09/24/18 8:44:00 CDT glycopyrrol 2018-0 No Route: IV, Memoria ate (ANES) 09-24 Drug form: l 13:44: INJ, ONCE, Stop date: 09/24/18 8:44:00 CDT propofol 2019-0 No Route: IV, Mem oria (ANES) 09-24 Drug form: l 13:44: INJ, ONCE, Stop date: 09/24/18 8:44:00 CDT fentaNYL 2019-0 No Route: IV, Mem oria (ANES) 09-24 Drug form: l 13:44: INJ, ONCE, Stop date: 09/24/18 8:44:00 CDT ceFAZolin 2019-0 No Route: IV, Me moria (ANES) 09-24 Drug form: l 13:44: INJ, ONCE, Stop date: 09/24/18 8:44:00 CDT cisatracuri 2019-0 No Route: IV, Memoria um (ANES) 09-24 Drug form: l 13:44: INJ, ONCE, Pineda 00 Stop date: 09/24/18 8:44:00 CDT Sodium 2019-0 No 250 mL, Memoria Chloride 4- Rate: To l 0.9% 10:00: prime line [place] (titrate) 00 and flush 250 mL remaining blood products., Dosing Weight 163.1, kg, Route: IV, Total Volume: 250, Start Date: 09/24/18 5:00:00 CDT, Duration: 30 day, Stop date: 10/24/18 4:59:00 CDT, Replace Every: 24 hr Sodium 2019-0 No 250 mL, Memoria Chloride 4- Rate: To l 0.9% 10:00: prime line [place] (titrate) 00 and flush 250 mL remaining blood products., Dosing Weight 163.1, kg, Route: IV, Total Volume: 250, Start Date: 09/24/18 5:00:00 CDT, Duration: 30 day, Stop date: 10/24/18 4:59:00 CDT, Replace Every: 24 hr Sodium 2019-0 No 250 mL, Memoria Chloride 4- Rate: To l 0.9% 10:00: prime line Pineda (titrate) 00 and flush 250 mL remaining blood products., Dosing Weight 163.1, kg, Route: IV, Total Volume: 250, Start Date: 09/24/18 5:00:00 CDT, Duration: 30 day, Stop date: 10/24/18 4:59:00 CDT, Replace Every: 24 hr Furosemide 2019-0 Yes Daily, 0 Mem oria 3-28 Refill(s) l 18:55: [place]ined[place] 00 Furosemide 2019-0 Yes Daily, 0 Mem oria 3-28 Refill(s) l 18:55: [place] 00 Furosemide 2019-0 Yes Daily, 0 Mem oria 3-28 Refill(s) l 18:55: Pineda 00 Docusate 2017-06 No Notes: Memoria 0-03 (Same as: l 22:00: Colace) [place] (Do Not Crush) Miralax 2017-06 No Notes: Memoria 0-03 Dissolve l 22:00: in 8 oz of Pineda 00 water or juice. (Same as: Miralax) Docusate 2017-06 No Notes: Memoria 0-03 (Same as: l 22:00: Colace) Pineda 00 (Do Not Crush) Miralax 2017-06 No Notes: Memoria 0-03 Dissolve l 22:00: in 8 oz of Pineda 00 water or juice. (Same as: Miralax) Docusate 2017-06 No Notes: Memoria 0-03 (Same as: l 22:00: Colace) [place] 00 (Do Not Crush) Miralax 2017-06 No Notes: Memoria 0-03 Dissolve l 22:00: in 8 oz of [place] 00 water or juice. (Same as: Miralax) clopidogrel 2017-06 Yes 75 mg = 1 M emoria 75 MG Oral 0-03 tab, PO, l Tablet 20:46: Daily, # [place] [Plavix] 00 30 tab, 0 Refill(s), Pharmacy: [place] [id number] clopidogrel 2017-06 Yes 75 mg = 1 M emoria 75 MG Oral 0-03 tab, PO, l Tablet 20:46: Daily, # Pineda [Plavix] 00 30 tab, 0 Refill(s), Pharmacy: [place] [id number] clopidogrel 2017-06 Yes 75 mg = 1 M emoria 75 MG Oral 0-03 tab, PO, l Tablet 20:46: Daily, # [place] [Plavix] 00 30 tab, 0 Refill(s), Pharmacy: [place] [id number] Aspirin 81 2017-06 No 81 mg = 1 Me moria MG Enteric 0-03 tab, PO, l Coated 20:36: Daily, # [place] Tablet 00 90 tab, 3 Refill(s), Pharmacy: [facility] Aspirin 81 2017-06 No 81 mg = 1 Me moria MG Enteric 0-03 tab, PO, l Coated 20:36: Daily, # Pineda Tablet 00 90 tab, 3 Refill(s), Pharmacy: [facility] Aspirin 81 2017-06 No 81 mg = 1 Me moria MG Enteric 0-03 tab, PO, l Coated 20:36: Daily, # Pineda Tablet 00 90 tab, 3 Refill(s), Pharmacy: [place] [id number] NIFEdipine 2017-06 Yes 60 mg = 1 Me moria 60 mg oral 0-03 tab, PO, l tablet, 19:22: Q12H, # 60 Herm nicola extended 00 tab, 0 release Refill(s), Pharmacy: [facility] isosorbide 2017-06 Yes 20 mg = 1 Me moria dinitrate 0-03 tab, PO, l 20 mg oral 19:22: TID, # 90 He rmann tablet 00 tab, 0 Refill(s), Pharmacy: [facility] atorvastati 2017-06 Yes 10 mg = 1 M emoria n 10 mg 0-03 tab, PO, l oral tablet 19:22: Bedtime, # [place] 00 30 tab, 0 Refill(s), Pharmacy: [facility] Hydralazine 2017-06 Yes 50 mg = 1 M emoria Hydrochlori 0-03 tab, PO, l de 50 MG 19:22: Q8H, # 90 Herm nicola Oral Tablet 00 tab, 0 Refill(s), Pharmacy: [facility] carvedilol 2017-06 Yes 12.5 mg = Me moria 12.5 mg 0-03 1 tab, PO, l oral tablet 19:22: Q12H, # 60 Pnieda 00 tab, 0 Refill(s), Pharmacy: [facility] calcitriol 2017-06 Yes 0.25 Memoria 0.25 mcg 0-03 microgram, l oral 19:22: PO, Daily, [place] capsule 00 # 30 caplet, 0 Refill(s), Pharmacy: [facility] polyethylen 2017-06 No 17 gm, PO, Memoria e glycol 0-03 Daily, X 7 l 3350 oral 19:22: day, # 255 He rmann powder for 00 gm, 0 reconstitut Refill(s), ion Pharmacy: [facility] Sodium 2017-06 No 650 mg = 1 Memor ia Bicarbonate 0-03 tab, PO, l 650 MG Oral 19:22: TID, X 30 H ermann Tablet 00 day, # 90 tab, 0 Refill(s), Pharmacy: [facility] sevelamer 2017-06 Yes 800 mg = 1 Me moria carbonate 0-03 tab, PO, l 800 mg oral 19:22: TID-Meals, Pineda tablet 00 # 90 tab, 0 Refill(s), Pharmacy: [facility] NIFEdipine 2018-1 Yes 60 mg = 1 Me moria 60 mg oral 0-03 tab, PO, l tablet, 19:22: Q12H, # 60 Herm nicola extended 00 tab, 0 release Refill(s), Pharmacy: [facility] isosorbide 2017-06 Yes 20 mg = 1 Me moria dinitrate 0-03 tab, PO, l 20 mg oral 19:22: TID, # 90 He rmann tablet 00 tab, 0 Refill(s), Pharmacy: [facility] atorvastati 2017-06 Yes 10 mg = 1 M emoria n 10 mg 0-03 tab, PO, l oral tablet 19:22: Bedtime, # Pineda 00 30 tab, 0 Refill(s), Pharmacy: [facility] Hydralazine 2017-06 Yes 50 mg = 1 M emoria Hydrochlori 0-03 tab, PO, l de 50 MG 19:22: Q8H, # 90 Herm nicola Oral Tablet 00 tab, 0 Refill(s), Pharmacy: [facility] carvedilol 2017-06 Yes 12.5 mg = Me moria 12.5 mg 0-03 1 tab, PO, l oral tablet 19:22: Q12H, # 60 [place] 00 tab, 0 Refill(s), Pharmacy: [facility] calcitriol 2017-06 Yes 0.25 Memoria 0.25 mcg 0-03 microgram, l oral 19:22: PO, Daily, [place] capsule 00 # 30 caplet, 0 Refill(s), Pharmacy: [facility] polyethylen 2017-06 No 17 gm, PO, Memoria e glycol 0-03 Daily, X 7 l 3350 oral 19:22: day, # 255 He rmann powder for 00 gm, 0 reconstitut Refill(s), ion Pharmacy: [facility] Sodium 2017-06 No 650 mg = 1 Memor ia Bicarbonate 0-03 tab, PO, l 650 MG Oral 19:22: TID, X 30 H ermann Tablet 00 day, # 90 tab, 0 Refill(s), Pharmacy: [facility] sevelamer 2017-06 Yes 800 mg = 1 Me moria carbonate 0-03 tab, PO, l 800 mg oral 19:22: TID-Meals, [place] tablet 00 # 90 tab, 0 Refill(s), Pharmacy: [facility] NIFEdipine 2017-06 Yes 60 mg = 1 Me moria 60 mg oral 0-03 tab, PO, l tablet, 19:22: Q12H, # 60 Herm nicola extended 00 tab, 0 release Refill(s), Pharmacy: [facility] isosorbide 2017-06 Yes 20 mg = 1 Me moria dinitrate 0-03 tab, PO, l 20 mg oral 19:22: TID, # 90 He rmann tablet 00 tab, 0 Refill(s), Pharmacy: [facility] atorvastati 2017-06 Yes 10 mg = 1 M emoria n 10 mg 0-03 tab, PO, l oral tablet 19:22: Bedtime, # Pineda 00 30 tab, 0 Refill(s), Pharmacy: [facility] Hydralazine 2017-06 Yes 50 mg = 1 M emoria Hydrochlori 0-03 tab, PO, l de 50 MG 19:22: Q8H, # 90 Herm nicola Oral Tablet 00 tab, 0 Refill(s), Pharmacy: [facility] carvedilol 2017-06 Yes 12.5 mg = Me moria 12.5 mg 0-03 1 tab, PO, l oral tablet 19:22: Q12H, # 60 [place] 00 tab, 0 Refill(s), Pharmacy: [facility] calcitriol 2017-06 Yes 0.25 Memoria 0.25 mcg 0-03 microgram, l oral 19:22: PO, Daily, [place] capsule 00 # 30 caplet, 0 Refill(s), Pharmacy: [facility] polyethylen 2017-06 No 17 gm, PO, Memoria e glycol 0-03 Daily, X 7 l 3350 oral 19:22: day, # 255 He rmann powder for 00 gm, 0 reconstitut Refill(s), ion Pharmacy: [facility] Sodium 2017-06 No 650 mg = 1 Memor ia Bicarbonate 0-03 tab, PO, l 650 MG Oral 19:22: TID, X 30 H ermann Tablet 00 day, # 90 tab, 0 Refill(s), Pharmacy: [facility] sevelamer 2018-1 Yes 800 mg = 1 Me moria carbonate 0-03 tab, PO, l 800 mg oral 19:22: TID-Meals, tablet # 90 tab, 0 Refill(s), Pharmacy: [id number] Calcitriol 2017-06 No Notes: Memor ia 0-03 (Same As: l 19:20: Rocaltrol) Calcitriol 2017-06 No Notes: Memor ia 0-03 (Same As: l 19:20: Rocaltrol) Calcitriol 2017-06 No Notes: Memor ia 0-03 (Same As: l 19:20: Rocaltrol) carvedilol 2017-06 No Notes: Memor ia 0-03 Give with l 02:00: food. (Same As: Coreg) carvedilol 2017-06 No Notes: Memor ia 0-03 Give with l 02:00: food. (Same As: Coreg) carvedilol 2017-06 No Notes: Memor ia 0-03 Give with l 02:00: food. (Same As: Coreg) isosorbide 2017-06 No 30 mg, Memor ia dinitrate 0-02 Route: PO, l 21:00: Drug form: Pineda 00 TAB, Q8H, Start date: 03/27/18 16:00:00 CDT, Duration: 30 day, Stop date: 04/26/18 8:00:00 CDT isosorbide 2017-06 No 30 mg, Memor ia dinitrate 0-02 Route: PO, l 21:00: Drug form: Pineda 00 TAB, Q8H, Start date: 03/27/18 16:00:00 CDT, Duration: 30 day, Stop date: 04/26/18 8:00:00 CDT isosorbide 2017-06 No 30 mg, Memor ia dinitrate 0-02 Route: PO, l 21:00: Drug form: Pineda 00 TAB, Q8H, Start date: 03/27/18 16:00:00 CDT, Duration: 30 day, Stop date: 04/26/18 8:00:00 CDT isosorbide 2017-06 No Notes: Memor ia dinitrate 0-02 (Same l 18:00: as:Isordil [place] 00 ) Take on empty stomach/ full glass of water isosorbide 2017-06 No Notes: Memor ia dinitrate 0-02 (Same l 18:00: as:Isordil [place] 00 ) Take on empty stomach/ full glass of water isosorbide 2017-06 No Notes: Memor ia dinitrate 0-02 (Same l 18:00: as:Isordil [place] ) Take on empty stomach/ full glass of water Insulin 2017-06 No 60 Memoria regular 0-02 units) l 12:30: WASTE: F/P Pineda 00 - Black; E - Municipal Trash Bin Stable for 28 days at room temperatur e Expires in days from ____Date 2017-06 No 25 gm, 50 Memoria (bolus) IV 0-02 mL, Route: l 12:30: IV, Drug [place] 00 Form: INJ, Dosing Weight 163.1, kg, ONCE, Start date: 03/27/18 7:30:00 CDT, Stop date: 03/27/18 7:30:00 CDT Kayexalate 2017-06 No Notes: Memor ia 0-02 (sodium l 12:30: polystyren [place] 00 e sulfonate 15 gm/60 ml ESTELLE) Shake well before use. (Same as: Gwenxabeccate , SPS) Insulin 2017-06 No 60 Memoria regular 0-02 units) l 12:30: WASTE: F/P [place] 00 - Black; E - Municipal Trash Bin Stable for 28 days at room temperatur e Expires in days from ____Date 2017-06 No 25 gm, 50 Memoria (bolus) IV 0-02 mL, Route: l 12:30: IV, Drug [place] 00 Form: INJ, Dosing Weight 163.1, kg, ONCE, Start date: 03/27/18 7:30:00 CDT, Stop date: 03/27/18 7:30:00 CDT Kayexalate 2017-06 No Notes: Memor ia 0-02 (sodium l 12:30: polystyren [place] 00 e sulfonate 15 gm/60 ml ESTELLE) Shake well before use. (Same as: Maria D , SPS) Insulin 2017-06 No 60 Memoria regular 0-02 units) l 12:30: WASTE: F/P [place] 00 - Black; E - Municipal Trash Bin Stable for 28 days at room temperatur e Expires in days from ____Date 2017-06 No 25 gm, 50 Memoria (bolus) IV 0-02 mL, Route: l 12:30: IV, Drug [place] 00 Form: INJ, Dosing Weight 163.1, kg, ONCE, Start date: 03/27/18 7:30:00 CDT, Stop date: 03/27/18 7:30:00 CDT Kayexalate 2017-06 No Notes: Memor ia 0-02 (sodium l 12:30: polystyren [place] 00 e sulfonate 15 gm/60 ml ESTELLE) Shake well before use. (Same as: Maria D , SPS) sevelamer 2017-06 No Notes: Memori a 0-01 Same as: l 13:00: Renvela [place] 00 sevelamer 2017-06 No Notes: Memori a 0-01 Same as: l 13:00: Renvela [place] 00 sevelamer 2017-06 No Notes: Memori a 0-01 Same as: l 13:00: Renvela [place] 00 2017-06 No 25 gm, 50 Memoria (bolus) [...] Memor ia 0-01 (sodium l 12:53: polystyren [place] 00 e sulfonate 15 gm/60 ml ESTELLE) Shake well before use. (Same as: Kayexalate , SPS) [id number] 2017-06 No 25 gm, 50 Memoria (bolus) IV 0-01 mL, Route: l 12:53: IV, Drug [place] 00 Form: INJ, Dosing Weight 163.1, kg, ONCE, Start date: 03/26/18 7:53:00 CDT, Stop date: 03/26/18 7:53:00 CDT Insulin 2017-06 No 60 Memoria regular 0-01 units) l 12:53: WASTE: F/P [place] 00 - Black; E - Municipal Trash Bin Stable for 28 days at room temperatur e Expires in days from ____Date Kayexalate 2017-06 No Notes: Memor ia 0-01 (sodium l 12:53: polystyren [place] 00 e sulfonate 15 gm/60 ml ESTELLE) Shake well before use. (Same as: Kayexalate , SPS) [id number] No 25 gm, 50 Memoria (bolus) IV 0-01 mL, Route: l 12:53: IV, Drug [place] 00 Form: INJ, Dosing Weight 163.1, kg, ONCE, Start date: 03/26/18 7:53:00 CDT, Stop date: 03/26/18 7:53:00 CDT Insulin 2017-06 No 60 Memoria regular 0-01 units) l 12:53: WASTE: F/P [place] 00 - Black; E - Municipal Trash [...] when overly full from food or drink." Sodium 2017-06 No Notes: [facility]oria Bicarbonate 0-01 "Dissolve l 11:50: tablet in [place] 00 a glass of water prior to oral administra tion. STOMACH WARNING: To avoid serious injury, do not take until tablet is completely dissolved. It is very important not to take this product when overly full from food or drink." Sodium 2017-06 No Notes: [facility]oria Bicarbonate 0-01 "Dissolve l 11:50: tablet in [place] 00 a glass of water prior to [...] grapefruit juice". Do not crush NIFEdipine No Notes: Memor ia 60 mg oral 9-30 (Same as: l tablet, 14:00: Adalat CC, Herm nicola extended 00 Procardia release XL) Give on empty stomach. Take 1 hour before or 2 hours after meal; "Avoid grapefruit and grapefruit juice". Do not crush NIFEdipine No Notes: Memor ia 60 mg oral 9-30 (Same as: l tablet, 14:00: Adalat CC, Herm nicola extended 00 Procardia release XL) Give on empty stomach. Take 1 hour before or 2 hours after meal; "Avoid grapefruit and grapefruit juice". Do not crush Magnesium No Notes: Memori a Sulfate 9-30 WASTE: F/P l 12:20: - Sink; E - [facility] Trash Bin Magnesium No Notes: Memori a Sulfate 9-30 WASTE: F/P l 12:20: - Sink; E - [facility] Trash Bin Magnesium No Notes: Memori a Sulfate 9-30 WASTE: F/P l 12:20: - Sink; E - [facility] Trash Bin NIFEdipine No Notes: Memor ia 60 mg oral 9-30 (Same as: l tablet, 04:00: Adalat CC, Herm nicola extended 00 Procardia release XL) Give on empty stomach. Take 1 hour before or 2 hours after meal; "Avoid grapefruit and grapefruit juice". Do not crush NIFEdipine No Notes: Memor ia 60 mg oral 9-30 (Same as: l tablet, 04:00: Adalat CC, Herm nicola extended 00 Procardia release XL) Give on empty stomach. Take 1 hour before or 2 hours after meal; "Avoid grapefruit and grapefruit juice". Do not crush NIFEdipine No Notes: Memor ia 60 mg oral 9-30 (Same as: l tablet, 04:00: Adalat CC, Herm nicola extended 00 Procardia [...] Food. Hydralazine No Notes: Manjinder tammy Hydrochlori 9-30 (Same as: l de 50 MG 02:00: Apresoline Her oliva Oral Tablet 00 ) May interfere w/enteral feedings Take With Food. Hydralazine No Notes: Manjinder tammy Hydrochlori 9-30 (Same as: l de 50 MG 02:00: Apresoline Her oliva Oral Tablet 00 ) May interfere w/enteral feedings Take With Food. Hydralazine No Notes: Manjinder tammy Hydrochlori 9-29 (Same as: l de 50 MG 21:00: Apresoline Her oliva Oral Tablet ) May interfere w/enteral feedings Take With Food isosorbide No Notes: Memor ia dinitrate 9-29 (Same l 21:00: as:Isordil [place] 00 ) Take on empty stomach/ full glass of water Hydralazine No Notes: Manjinder tammy Hydrochlori 9-29 (Same as: l de 50 MG 21:00: Apresoline Her oliva Oral Tablet 00 ) May interfere w/enteral feedings Take With Food isosorbide No Notes: Memor ia dinitrate 03-24 (Same l 21:00: as:Isordil [place] ) Take on empty stomach/ full glass of water Hydralazine No Notes: Manjinder tammy Hydrochlori 03-24 (Same as: l de 50 MG 21:00: Apresoline Her oliva Oral Tablet ) May interfere w/enteral feedings Take With Food isosorbide No Notes: Memor ia dinitrate 03-24 (Same l 21:00: as:Isordil [place] ) Take on empty stomach/ full glass of water NIFEdipine No Notes: Memor ia 60 mg oral 03-24 (Same as: l tablet, 20:59: Adalat CC, Herm nicola extended 00 Procardia release XL) Give on empty stomach. Take 1 hour before or 2 hours after meal; "Avoid grapefruit and grapefruit juice". Do not crush NIFEdipine No Notes: Memor ia 60 mg oral 03-24 (Same as: l tablet, 20:59: Adalat CC, Herm nicola extended 00 Procardia release XL) Give on empty stomach. Take 1 hour before or 2 hours after meal; "Avoid grapefruit and grapefruit juice". Do not crush NIFEdipine No Notes: Memor ia 60 mg [...] tablet, 20:57: Drug form: Herm nicola extended 00 ERTAB, release ONCE, Dosing Weight 163.1, kg, Priority: NOW, Start date: 03/24/18 15:57:00 CDT, Stop date: 03/24/18 15:57:00 CDT, .. NIFEdipine 0 No 60 mg, Memor ia 60 mg oral 03-24 Route: PO, l tablet, 20:57: Drug form: Herm nicola extended 00 ERTAB, release ONCE, Dosing Weight 163.1, kg, Priority: NOW, Start date: 03/24/18 15:57:00 CDT, Stop date: 03/24/18 15:57:00 CDT, .. NIFEdipine 2017-0 No 60 mg, Memor ia 60 mg oral 03-24 Route: PO, l tablet, 20:57: Drug form: Herm nicola extended 00 ERTAB, release ONCE, Dosing Weight 163.1, kg, Priority: NOW, Start date: 03/24/18 15:57:00 CDT, Stop date: 03/24/18 15:57:00 CDT, .. hydrALAZINE 2017-0 No 25 mg, Manjinder tammy 03-24 Route: PO, l 18:00: Drug form: [place] 00 TAB, TID, Start date: 03/24/18 13:00:00 CDT, Duration: 30 day, Stop date: 04/23/18 9:00:00 CDT hydrALAZINE 2017-0 No 25 mg, Manjinder tammy 03-24 Route: PO, l 18:00: Drug form: [place] 00 TAB, TID, Start date: 03/24/18 13:00:00 CDT, Duration: 30 day, Stop date: 04/23/18 9:00:00 CDT hydrALAZINE 2017-0 No 25 mg, Manjinder tammy 03-24 Route: PO, l 18:00: Drug form: [place] 00 TAB, TID, Start date: 03/24/18 13:00:00 CDT, Duration: 30 day, Stop date: 04/23/18 9:00:00 CDT Kayexalate No Notes: Memor ia 03-24 (sodium l 17:54: polystyren [place] 00 e sulfonate 30gm powder) (Same as: Kayexalate , SPS) Shake well before use Kayexalate No Notes: Memor ia 03-24 (sodium l 17:54: polystyren [place] 00 e sulfonate 30gm powder) (Same as: Kayexalate , SPS) Shake well before use Kayexalate No Notes: Memor ia 03-24 (sodium l 17:54: polystyren [place] 00 e sulfonate 30gm powder) (Same as: Kayexalate , SPS) Shake well before use Acetaminoph No Notes: Do M emoria en 03-24 not exceed l 17:22: 4 gm/day. [place] 00 (Same as: Tylenol) Acetaminoph No Notes: Do M emoria en 03-24 not exceed l 17:22: 4 gm/day. [place] 00 (Same as: Tylenol) Acetaminoph No Notes: Do M emoria en 03-24 not exceed l 17:22: 4 gm/day. [place] 00 (Same as: Tylenol) Hydralazine No Notes: Manjinder tammy 9- (Same as: l 16:06: Apresoline [place] 00 ) May interfere w/enteral feedings Take With Food. Hydralazine No Notes: Manjinder tammy 9-29 (Same as: l 16:06: Apresoline [place] 00 ) May interfere w/enteral feedings Take With Food. Hydralazine No Notes: Manjinder tammy 9-29 (Same as: l 16:06: Apresoline ) May interfere w/enteral feedings Take With Food. Tylenol No Notes: Do Memor ia 03-24 not exceed l 01:41: 4 gm/day. (Same as: Tylenol) Tylenol No Notes: Do Memor ia - not exceed l 01:41: 4 gm/day. (Same as: Tylenol) Tylenol No Notes: Do Memor ia - not exceed l 01:41: 4 gm/day. (Same as: Tylenol) Melatonin No Notes: Manjinder tammy MG Extended 9-28 (Same as: l Release 23:00: Melatonin) Herm nicola Tablet 00 Melatonin 3 No Notes: Manjinder tammy MG Extended 9-28 (Same as: l Release 23:00: Melatonin) Herm nicola Tablet 00 Melatonin 3 No Notes: Manjinder tammy MG Extended 9-28 (Same as: l Release 23:00: Melatonin) Herm nicola Tablet 00 hydrALAZINE No Notes: Manjinder tammy 9-28 (Same as: l 21:00: Apresoline [place] 00 ) May interfere w/enteral feedings. Take With Food hydrALAZINE No Notes: Manjinder tammy 9-28 (Same as: l 21:00: Apresoline ) May interfere w/enteral feedings. Take With Food hydrALAZINE 2017-0 No Notes: Manjinder tammy 03-23 (Same as: l 21:00: Apresoline ) May interfere w/enteral feedings. Take With Food isosorbide 2017-0 No Notes: Memor ia dinitrate 03-23 (Same l 14:00: as:Isordil ) Take on empty stomach/ full glass of water hydrALAZINE 0 No 12.5 mg, Me moria 9-28 0.5 tab, l 14:00: Route: PO, Drug form: TAB, TID, Start date: 03/23/18 9:00:00 CDT, Duration: 30 day, Stop date: 04/21/18 17:00:00 CDT Hydralazine 2017-0 No 1 tab, Manjinder tammy Hydrochlori 03-23 Route: PO, l de 37.5 MG 14:00: Dosing [place] Weight Isosorbide 163.1, kg, Dinitrate TID, Start 20 MG Oral date: Tablet 03/23/18 [Bidil] 9:00:00 CDT, Duration: 30 day, Stop date: 04/21/18 17:00:00 CDT isosorbide 2017-0 No Notes: Memor ia dinitrate 03-23 (Same l 14:00: as:Isordil ) Take on empty stomach/ full glass of water hydrALAZINE 0 No 12.5 mg, Me moria 9-28 0.5 tab, l 14:00: Route: PO, Drug form: TAB, TID, Start date: 03/23/18 9:00:00 CDT, Duration: 30 day, Stop date: 04/21/18 17:00:00 CDT Hydralazine 2017-0 No 1 tab, Manjinder tammy Hydrochlori 03-23 Route: PO, l de 37.5 MG 14:00: Dosing [place] nn Weight Isosorbide 163.1, kg, Dinitrate TID, Start 20 MG Oral date: Tablet 03/23/18 [Bidil] 9:00:00 CDT, Duration: 30 day, Stop date: 04/21/18 17:00:00 CDT isosorbide 2017-0 No Notes: Memor ia dinitrate 03-23 (Same l 14:00: as:Isordil ) Take on empty stomach/ full glass of water hydrALAZINE 2017-0 No 12.5 mg, Me moria - 0.5 tab, l 14:00: Route: PO, [place] 00 Drug form: TAB, TID, Start date: 03/23/18 9:00:00 CDT, Duration: 30 day, Stop date: 04/21/18 17:00:00 CDT Hydralazine 0 No 1 tab, Manjinder tammy Hydrochlori 03-23 Route: PO, l de 37.5 MG 14:00: Dosing [place] Weight Isosorbide 163.1, kg, Dinitrate TID, Start 20 MG Oral date: Tablet 03/23/18 [Bidil] 9:00:00 CDT, Duration: 30 day, Stop date: 04/21/18 17:00:00 CDT heparin No Notes: Memoria -28 porcine l 13:00: heparin heparin No Notes: Memoria 9-28 porcine l 13:00: heparin heparin No Notes: Memoria 9-28 porcine l 13:00: heparin Labetalol 2017-0 No 10 mg, 2 Manjinder tammy 9-28 mL, Route: l 04:53: IV, Drug form: INJ, ABXQ6H, Dosing Weight 163.1, kg, PRN Hypertensi on, Start date: 03/22/18 23:53:00 CDT, Duration: 30 day, Stop date: 04/21/18 23:52:00 CDT Labetalol 2017-0 No 10 mg, 2 Manjinder tammy 9-28 mL, Route: l 04:53: IV, Drug form: INJ, ABXQ6H, Dosing Weight 163.1, kg, PRN Hypertensi on, Start date: 03/22/18 23:53:00 CDT, Duration: 30 day, Stop date: 04/21/18 23:52:00 CDT Labetalol 2017-0 No 10 mg, 2 Manjinder tammy 9-28 mL, Route: l 04:53: IV, Drug [place] 00 form: INJ, ABXQ6H, Dosing Weight 163.1, kg, PRN Hypertensi on, Start date: 03/22/18 23:53:00 CDT, Duration: 30 day, Stop date: 04/21/18 23:52:00 CDT Labetalol 2018-0 No 10 mg, 2 Manjinder tammy 9-28 mL, Route: l 01:13: IVP, Drug [place] 00 form: INJ, ONCE, Dosing Weight 163.1, kg, Priority: NOW, Start date: 03/22/18 20:13:00 CDT, Stop date: 03/22/18 20:13:00 CDT Labetalol 2018-0 No 10 mg, 2 Manjinder tammy 9-28 mL, Route: l 01:13: IVP, Drug [place] 00 form: INJ, ONCE, Dosing Weight 163.1, kg, Priority: NOW, Start date: 03/22/18 20:13:00 CDT, Stop date: 03/22/18 20:13:00 CDT Labetalol 2018-0 No 10 mg, 2 Manjinder tammy 9-28 mL, Route: l 01:13: IVP, Drug [place] 00 form: INJ, ONCE, Dosing Weight 163.1, kg, Priority: NOW, Start date: 03/22/18 20:13:00 CDT, Stop date: 03/22/18 20:13:00 CDT Labetalol 2018-0 No 20 mg, 4 Manjinder tammy 9-28 mL, Route: l 01:06: IVP, Drug [place] 00 form: INJ, ONCE, Dosing Weight 163.1, kg, Priority: NOW, Start date: 03/22/18 20:06:00 CDT, Stop date: 03/22/18 20:06:00 CDT Labetalol 2018-0 No 20 mg, 4 Manjinder tammy 9-28 mL, Route: l 01:06: IVP, Drug [place] 00 form: INJ, ONCE, Dosing Weight 163.1, kg, Priority: NOW, Start date: 03/22/18 20:06:00 CDT, Stop date: 03/22/18 20:06:00 CDT Labetalol 2018-0 No 20 mg, 4 Manjinder tammy 9-28 mL, Route: l 01:06: IVP, Drug form: INJ, ONCE, Dosing Weight 163.1, kg, Priority: NOW, Start date: 03/22/18 20:06:00 CDT, Stop date: 03/22/18 20:06:00 CDT Hydralazine 2018-0 No 10 mg, Manjinder tammy 9-28 Route: IV, l 01:04: ONCE, Dosing Weight 163.1, kg, Start date: 03/22/18 20:04:00 CDT, Stop date: 03/22/18 20:04:00 CDT Hydralazine 2018-0 No 10 mg, Manjinder tammy 9-28 Route: IV, l 01:04: ONCE, Dosing Weight 163.1, kg, Start date: 03/22/18 20:04:00 CDT, Stop date: 03/22/18 20:04:00 CDT Hydralazine 2018-0 No 10 mg, Manjinder tammy 9-28 Route: IV, l 01:04: ONCE, Dosing Weight 163.1, kg, Start date: 03/22/18 20:04:00 CDT, Stop date: 03/22/18 20:04:00 CDT NIFEdipine 2018-0 No 60 mg, 1 Mem oria 60 mg oral 9-27 tab, l tablet, 21:50: Route: PO, Herm nicola extended Drug form: release ERTAB, Daily, Dosing Weight 163.1, kg, Start date: 03/22/18 16:50:00 CDT, Duration: 30 day, Stop date: 04/21/18 9:00:00 CDT, .. NIFEdipine 2018-0 No 60 mg, 1 Mem oria 60 mg oral 9-27 tab, l tablet, 21:50: Route: PO, Herm nicola extended Drug form: release ERTAB, Daily, Dosing Weight 163.1, kg, Start date: 03/22/18 16:50:00 CDT, Duration: 30 day, Stop date: 04/21/18 9:00:00 CDT, .. NIFEdipine 2018-0 No 60 mg, 1 Mem oria 60 mg oral 9-27 tab, l tablet, 21:50: Route: PO, Herm nicola extended 00 Drug form: release ERTAB, Daily, Dosing Weight 163.1, kg, Start date: 03/22/18 16:50:00 CDT, Duration: 30 day, Stop date: 04/21/18 9:00:00 CDT, .. Saline No Notes: Memoria Flush 0.9% 9-27 (Same as: l 14:00: BD [place] 00 Posiflush) Saline No Notes: [facility]oria Flush 0.9% 9-27 (Same as: l 14:00: BD [place] 00 Posiflush) Saline No Notes: [facility]oria Flush 0.9% 9-27 (Same as: l 14:00: BD [place] 00 Posiflush) heparin No Notes: Memoria - porcine l 13:00: heparin [place] heparin No Notes: [facility] - porcine l 13:00: heparin [place] 00 heparin No Notes: Memoria 03-22 porcine l 13:00: heparin [place] 00 Glucagon No 1 mg, Memoria 03-22 Route: IM, l 11:16: Drug form: [place] PDR/INJ, PRN, Dosing Weight 163.1, kg, PRN [...] e. Expires in days from ____Date Dextrose 2017-0 No 25 gm, 50 Manjinder tammy 50% Syringe 9-27 mL, Route: l 11:16: IVP, Drug [place] 00 Form: INJ, Dosing Weight 163.1, kg, PRN, PRN Blood Glucose Results, Start date: 03/22/18 6:16:00 CDT, Duration: 30 day, Stop date: 04/21/18 6:15:00 CDT Glucagon 2018-0 No 1 mg, Memoria 03-22 Route: IM, l 11:16: Drug form: [place] 00 PDR/INJ, PRN, Dosing Weight 163.1, kg, PRN Blood Glucose Results, Start date: 03/22/18 6:16:00 CDT, Duration: 30 day, Stop date: 04/21/18 6:15:00 CDT Insulin 2018-0 No Notes: Memoria Lispro - (Same as: l 11:16: Humalog ) [place] 00 Roll in palms of hands gently; Do not shake `vigorousl y. "Single Patient Use Only " WASTE: F/P - Black; E - Municipal Trash Bin Stable for 28 days at room temperatur e. Expires in days from ____Date Dextrose 2018-0 No 25 gm, 50 Manjinder tammy 50% Syringe 9-27 mL, Route: l 11:16: IVP, Drug [place] 00 Form: INJ, Dosing Weight 163.1, kg, PRN, PRN Blood Glucose Results, Start date: 03/22/18 6:16:00 CDT, Duration: 30 day, Stop date: 04/21/18 6:15:00 CDT Glucagon 2018-0 No 1 mg, Memoria 03-22 Route: IM, l 11:16: Drug form: [place] 00 PDR/INJ, PRN, Dosing Weight 163.1, kg, PRN Blood Glucose Results, Start date: 03/22/18 6:16:00 CDT, Duration: 30 day, Stop date: 04/21/18 6:15:00 CDT Insulin 2018-0 No Notes: [facility]oria Lispro - (Same as: l 11:16: Humalog ) [place] 00 Roll in palms of hands gently; Do not shake `vigorousl y. "Single Patient Use Only " WASTE: F/P - Black; E - Municipal Trash Bin Stable for 28 days at room temperatur e. Expires in days from ____Date Dextrose 2018-0 No 25 gm, 50 Manjinder tammy 50% Syringe 9-27 mL, Route: l 11:16: IVP, Drug [place] 00 Form: INJ, Dosing Weight 163.1, kg, PRN, [...] l MG / 10:18: 30 tab, 0 [place] valsartan 00 Refill(s) 320 MG Oral Tablet glimepiride No 2 mg = 1 Me moria 2 mg oral 03-22 tab, PO, l tablet 10:18: Breakfast, A[place]lia nn 00 # 30 tab, 0 Refill(s) Metformin No 1,000 mg = Me moria hydrochlori 03-22 1 tab, PO, l de 1000 MG 10:18: BID, 0 [place] nn Oral Tablet 00 Refill(s) Amlodipine No 1 tab, PO, M emoria [...] l MG / 10:18: 30 tab, 0 [place] valsartan 00 Refill(s) 320 MG Oral Tablet glimepiride No 2 mg = 1 Me moria 2 mg oral 03-22 tab, PO, l tablet 10:18: Breakfast, Aurelia nn 00 # 30 tab, 0 Refill(s) Metformin No 1,000 mg = Me moria hydrochlori -27 1 tab, PO, l de 1000 MG 10:18: BID, 0 [place] nn Oral Tablet 00 Refill(s) Amlodipine No 1 tab, PO, M emoria [...] l MG / 10:18: 30 tab, 0 [place] valsartan 00 Refill(s) 320 MG Oral Tablet glimepiride No 2 mg = 1 Me moria 2 mg oral 03-22 tab, PO, l tablet 10:18: Breakfast, Aurelia nn 00 # 30 tab, 0 Refill(s) Metformin No 1,000 mg = Me moria hydrochlori 27 1 tab, PO, l de 1000 MG 10:18: BID, 0 [place]urelia nn Oral Tablet 00 Refill(s) Saline No Notes: Memoria Flush 0.9% 03-22 (Same as: l 10:02: BD [place] 00 Posiflush) Saline No Notes: Memoria Flush 0.9% 9-27 (Same as: l 10:02: BD [place] 00 Posiflush) Saline No Notes: Memoria Flush 0.9% 9-27 (Same as: l 10:02: BD [place] 00 Posiflush) Nicardipine No Notes: Manjinder tammy 03-22 Same as: l 09:07: Cardene [place] 00 Concentrat ion: (0.1 mg/ 1 ml) Nicardipine No Notes: Manjinder tammy 03-22 Same as: l 09:07: Cardene [place] 00 Concentrat ion: (0.1 mg/ 1 ml) Nicardipine No Notes: Manjinder tammy 03-22 Same as: l 09:07: Cardene [place] 00 Concentrat ion: (0.1 mg/ 1 ml) Labetalol 2018-0 No 10 mg, Memori a 03-22 Route: IV, l 03:55: ONCE, Dosing Weight 165.909, kg, Start date: 03/21/18 22:55:00 CDT, Stop date: 03/21/18 22:55:00 CDT Labetalol 2018-0 No 10 mg, Memori a 03-22 Route: IV, l 03:55: ONCE, Dosing Weight 165.909, kg, Start date: 03/21/18 22:55:00 CDT, Stop date: 03/21/18 22:55:00 CDT Labetalol 2018-0 No 10 mg, Memori a 03-22 Route: IV, l 03:55: ONCE, Dosing Weight 165.909, kg, Start date: 03/21/18 22:55:00 CDT, Stop date: 03/21/18 22:55:00 CDT Labetalol 2018-0 No 10 mg, Memori a 03-22 Route: IV, l 03:54: ONCE, Dosing Weight 165.909, kg, Start date: 03/21/18 22:54:00 CDT, Stop date: 03/21/18 22:54:00 CDT Labetalol 2018-0 No 10 mg, Memori a 03-22 Route: IV, l 03:54: ONCE, Dosing Weight 165.909, kg, Start date: 03/21/18 22:54:00 CDT, Stop date: 03/21/18 22:54:00 CDT Labetalol 2018-0 No 10 mg, Memori a 03-22 Route: IV, l 03:54: ONCE, Dosing Weight 165.909, kg, Start date: 03/21/18 22:54:00 CDT, Stop date: 03/21/18 22:54:00 CDT Kayexalate 0 No Notes: Memor ia 03-22 (sodium l 02:55: polystyren e sulfonate 15 gm/60 ml ESTELLE) Shake well before use. (Same as: Kayexalate , SPS) Kayexalate 2018-0 No Notes: Memor ia 03-22 (sodium l 02:55: polystyren [place] 00 e sulfonate 15 gm/60 ml ESTELLE) Shake well before use. (Same as: Kayexalate , SPS) Kayexalate No Notes: Memor ia 03-22 (sodium l 02:55: polystyren [place] 00 e sulfonate 15 gm/60 ml ESTELLE) Shake well before use. (Same as: Kayexalate , SPS) Lasix No Notes: Memoria 03-22 (Same as: l 02:54: Lasix) [place] 00 MEDICATION WASTE Product Size: 40 mg Product Wasted: ___ mg Lasix No Notes: Memoria 03-22 (Same as: l 02:54: Lasix) [place] 00 MEDICATION WASTE Product Size: 40 mg Product Wasted: ___ mg Lasix No Notes: Memoria 03-22 (Same as: l 02:54: Lasix) [place] 00 MEDICATION WASTE Product Size: 40 mg Product Wasted: ___ mg Isolyte S No Notes: Memori a PH-7.4 03-22 (Same as: l (Bolus) IV 02:32: Isolyte S He rmann 00 PH 7.4) Albuterol No Notes: SEE Me moria 0.83 MG/ML 03-22 RT l Inhalant 02:32: DOCUMENTAT Her oliva Solution 00 ION (Same as: Proventil) Isolyte S No Notes: Memori a PH-7.4 03-22 (Same as: l (Bolus) IV 02:32: Isolyte S He [place] 00 PH 7.4) Albuterol No Notes: SEE Me moria 0.83 MG/ML 03-22 RT l Inhalant 02:32: DOCUMENTAT Her oliva Solution 00 ION (Same as: Proventil) Isolyte S No Notes: Memori a PH-7.4 03-22 (Same as: l (Bolus) IV 02:32: Isolyte S He [place] 00 PH 7.4) Albuterol No Notes: SEE Me moria 0.83 MG/ML 9-27 RT l Inhalant 02:32: DOCUMENTAT Her oliva Solution 00 ION (Same as: Proventil) Dextrose 2018-0 No 50 gm, 100 Mem oria 50% Syringe 9-27 mL, Route: l 02:31: IV, Drug [place] 00 Form: INJ, Dosing Weight 165.909, kg, ONCE, Start date: 03/21/18 21:31:00 CDT, Stop date: 03/21/18 21:31:00 CDT Insulin 2018-0 No 60 Memoria regular 9-27 units) l 02:31: WASTE: F/P [place] 00 - Black; E - Municipal Trash Bin Stable for 28 days at room temperatur e Expires in days from ____Date Dextrose 2018-0 No 50 gm, 100 Mem oria 50% Syringe 9-27 mL, Route: l 02:31: IV, Drug [place] 00 Form: INJ, Dosing Weight 165.909, kg, ONCE, Start date: 03/21/18 21:31:00 CDT, Stop date: 03/21/18 21:31:00 CDT Insulin 2018-0 No 60 Memoria regular 9-27 units) l 02:31: WASTE: F/P [place] 00 - Black; E - Municipal Trash Bin Stable for 28 days at room temperatur e Expires in days from ____Date Dextrose 2018-0 No 50 gm, 100 Mem oria 50% Syringe 9-27 mL, Route: l 02:31: IV, Drug [place] 00 Form: INJ, Dosing Weight 165.909, kg, ONCE, Start date: 03/21/18 21:31:00 CDT, Stop date: 03/21/18 21:31:00 CDT Insulin 2018-0 No 60 Memoria regular 9-27 units) l 02:31: WASTE: F/P [place] 00 - Black; E - Municipal Trash Bin Stable for 28 days at room temperatur e Expires in days from ____Date Vital Signs Vital Name Observation Time Observation Value Comments Source Systolic blood 2020-12-02 21:18:00 196 mm[Hg] recheck Method ist [facility] pressure Diastolic blood 2020-12-02 21:18:00 127 mm[Hg] recheck [facility] pressure Heart rate 2020-12-02 20:16:00 77 /min [facility] Body temperature 2020-12-02 20:16:00 36.39 [facility] Body height 2020-12-02 20:16:00 185.4 cm [facility] Body weight 2020-12-02 20:16:00 156.763 kg [facility] BMI 2020-12-02 20:16:00 45.60 kg/m2 [facility] Oxygen saturation in 2020-12-02 20:16:00 97 /min [facility] Arterial blood by Pulse oximetry Temperature Oral (F) 2018-10-24 21:53:00 98 F [facility] [place] Respitory Rate 2018-10-24 21:53:00 Memori al [place] Systolic (mm Hg) 2018-10-24 21:53:00 Manjinder rial [place] Diastolic (mm Hg) 2018-10-24 21:53:00 Mem orial [place] Respitory Rate 2018-10-24 20:25:00 Memori al [place] Respitory Rate 2018-10-24 18:02:00 Memori al [place] Systolic (mm Hg) 2018-10-24 18:02:00 Manjinder rial [place] Diastolic (mm Hg) 2018-10-24 18:02:00 Mem orial [place] Systolic (mm Hg) 2018-10-24 16:58:00 Manjinder rial [place] Diastolic (mm Hg) 2018-10-24 16:58:00 Mem orial [place] Temperature Oral (F) 2018-10-24 16:58:00 98.2 F [facility] [place] Height 2018-10-24 12:06:00 185.42 cm [facility] [place] BMI Calculated 2018-10-24 12:06:00 Memori al [place] Weight 2018-10-24 12:06:00 [facility] [place] Heart Rate 2018-10-24 12:06:00 [facility] [place] Temperature Oral (F) 2018-10-24 12:06:00 97.8 F [facility] [place] Systolic (mm Hg) 2018-09-24 15:27:00 Manjinder rial [place] Diastolic (mm Hg) 2018-09-24 15:27:00 Mem o[facility] Respitory Rate 2018-09-24 15:27:00 [facility] Systolic (mm Hg) 2018-09-24 15:00:00 [facility] Diastolic (mm Hg) 2018-09-24 15:00:00 [facility] Respitory Rate 2018-09-24 15:00:00 [facility] Respitory Rate 2018-09-24 14:45:00 [facility] Systolic (mm Hg) 2018-09-24 14:45:00 Manjinder [facility] Diastolic (mm Hg) 2018-09-24 14:45:00 [facility] Weight 2018-09-24 12:14:00 [facility] BMI Calculated 2018-09-24 12:14:00 [facility] Height 2018-09-24 12:14:00 185.42 cm [facility] Heart Rate 2018-09-24 10:45:00 [facility] BMI Calculated 2018-09-20 18:58:00 [facility] Weight 2018-09-20 18:58:00 [facility] Height 2018-09-20 18:58:00 185.42 cm [facility] Systolic (mm Hg) 2018-03-28 16:35:00 Manjinder [facility] Diastolic (mm Hg) 2018-03-28 16:35:00 [facility] Heart Rate 2018-03-28 16:35:00 [facility] Respitory Rate 2018-03-28 16:35:00 [facility] Temperature Oral (F) 2018-03-28 16:35:00 98.1 F [facility] Temperature Oral (F) 2018-03-28 12:35:00 98.2 F [facility] Heart Rate 2018-03-28 12:35:00 [facility] Systolic (mm Hg) 2018-03-28 12:35:00 [facility]inder [facility] Diastolic (mm Hg) 2018-03-28 12:35:00 [facility] Respitory Rate 2018-03-28 12:35:00 [facility] Temperature Oral (F) 2018-03-28 10:10:00 98.4 F [facility] Respitory Rate 2018-03-28 10:10:00 [facility] Heart Rate 2018-03-28 10:10:00 Lee[facility] Systolic (mm Hg) 2018-03-28 10:10:00 Manjinder Sung Diastolic (mm Hg) 2018-03-28 10:10:00 [facility] BMI Calculated 2018-03-22 09:08:00 Gaurang chaidez [facility] Weight 2018-03-22 09:08:00 [facility] Height 2018-03-22 09:08:00 185.42 cm [facility] BMI Calculated 2018-03-22 00:57:00 [facility] al [facility] Weight 2018-03-22 00:57:00 [facility] Height 2018-03-22 00:57:00 185.42 cm [facility] Procedures Procedure Date / Time Performed Performing Clinician [facility] e Eye reconstruction [facility] nicola Hernia repair [facility] Knee joint operation [facility] Plan of Care Planned Activity Planned Date Details Comments Source Future Scheduled Test DIABETES: RETINAL EYE [facility] EXAM [code = DIABETES: RETINAL EYE EXAM] Future Scheduled Test DIABETIC FOOT EXAM [facility] [code = DIABETIC FOOT EXAM] Future Scheduled Test COVID-19 VACCINE (1) [facility] [code = COVID-19 VACCINE (1)] Future Scheduled Test Hepatitis C screening [facility] (procedure) [code = 609066845] Future Scheduled Test INFLUENZA VACCINE [facility] [code = INFLUENZA VACCINE] Encounters Start End Encounter Admission Attending Care Care Encounter Source Date/Time Date/Time Type Type Clinicians Facility Department ID 2020-04-24 Inpatient Humberto Tee HCACL DAYS [id number] [facility] 13:00:00 [address]83 [facility] 2021-03-18 2021-03-18 Outpatient [facility] [id number] [place] 00:00:00 00:00:00 CLEMENTE [address] 2021-03-18 2021-03-18 Outpatient [facility] [id number] 200 [place] 00:00:00 00:00:00 CLEMENTE [address] 2020-12-07 2020-12-07 Travel 1.2.840.1 1.2.804.480 [id number] Methodi 00:00:00 00:00:[address] 3.430.2.7 0.2.7.3.698 Ho spita .3.698857 084.8 l .8 2020-12-07 2020-12-07 Orders Negrete, 1.2.840.1 [id number] 2100 [id number] Methodi 00:00:00 00:00:00 Only Marie [address]995.1.[address] 3.430.2.7 Hospit a .3.979068 l .8 2020-12-03 2020-12-03 Telephone Sherman, 1.2.840.1 [id number] 2100 [id number] Methodi 00:00:00 00:00:[address] [facility]-i 3.430.2.7 Hosp flor .3.968505 l .8 2020-12-02 2020-12-02 Office Sherman, 1.2.840.1 [id number] 5683 Methodi 15:12:20 16:22:20 Visit Clemente [address]01.1.[address] [facility] 3.430.2.7 Hosp flor .3.605780 l .8 2020-12-02 2020-12-02 Travel 1.2.840.1 1.2.644.121 3666 912585 Methodi 00:00:00 00:00:[address] 3.430.2.7 0.2.7.3.698 Ho spita .3.000511 084.8 l .8 2020-12-01 2020-12-01 Telephone Castillo, 1.2.840.1 [id number] 2100 [id number] Methodi 00:00:00 00:00:[address] [place] 3.430.2.7 Hosp flor .3.434895 l .8 2020-12-01 2020-12-01 Telephone Sherman, 1.2.840.1 [id number] 2099 [id number] Methodi 00:00:00 00:00:[address] [facility]-i 3.430.2.7 Hosp flor .3.698582 l .8 2020-10-21 2020-10-[address], 1.2.840.1 [id number] 5641 Methodi 14:56:04 15:47:36 Visit Clemente 83294.1.[address] [place]-i 3.430.2.7 Hosp flor .3.915047 l .8 2020-10-21 2020-10-21 Travel 1.2.840.1 1.2.940.303 5141 [id number] Methodi 00:00:00 00:00:[address] 3.430.2.7 0.2.7.3.698 Ho spita .3.790945 084.8 l .8 2020-09-24 2020-09-24 Telephone Justice, 1.2.840.1 [id number] Methodi 00:00:00 00:00:[address] 3.430.2.7 Hospit a .3.035578 l .8 2020-04-03 2020-04-03 Orders Crum, 1.2.840.1 [id number] 60653 Methodi 00:00:00 00:00:00 Only Crysandria 66761.1.1 811 s t 3.430.2.7 Hospit a .3.747094 l .8 2020-04-03 2020-04-03 Telephone Justice, 1.2.840.1 [id number] Methodi 00:00:00 00:00:[address] 3.430.2.7 Hospit a .3.615626 l .8 2018-10-24 2018-10-24 [facility] [id number] Memoria 12:02:21 22:12:00 lorena Sung [address] [place] [address] 2018-10-24 2018-10-24 Emergency E [facility] [address] [facility] 07:02:00 07:02:00 2018-09-24 2018-09-25 Day nullFlavo [facility] [id number] [facility] 10:19:00 04:59:00 Surgery lorena Sung [address] [place] [address] 2018-09-24 2018-09-24 Outpatient [facility] [address] [facility] 05:19:00 05:19:00 2018-03-22 2018-03-28 Inpatient [facility] [id number] [facility] 00:55:00 22:26:00 lorena Sung 00 l [facility] Results Test Description Test Time Test Comments Results Result Comments Source SARS-CoV-2 (COVID-19) RNA [Presence] in Respiratory sp ecimen by 2021-03-19 02:23:19 CRYSTAL with probe detection Test Item Value Reference Range Interpretation Comme nts SARS-CoV-2 (COVID-19) RNA [Presence] in Respiratory Not detected No t-Detected specimen by CRYSTAL with probe detection (test code = 49326-6) Whether patient is employed in a healthcare setting (test code = 64628-6) Whether the patient has symptoms related to condition of interest (test code = 62990-5) Patient was hospitalized because of this condition (test code = 42343-8) Whether the patient was admitted to intensive care unit (ICU) for condition of interest (test code = 50866-8) Whether patient resides in a congregate care setting (test code = 03551-5) [id number] 05:14:00 Test Item Value Reference Range Interpretation Comments GLUBED (test code = 126 MG/DL 70-110 H Performe d by certified GLUBED) 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 [place] : 1970 Age/S: 49/M [address] [place] [address] Unit #: [id number] Loc: [place] [address] Phys: Humberto Tee MD Acct: [id number] Dis Date: Status : REG [facility] PHONE #: [phone] Exam Date: 04/24/2020 1106 FAX #: [phone] Reason: PREOP EXAMS: CPT CODE: [id number] XR CHEST 2 V 48440 EXAM: XR CHEST 2 VIEWS DATE: 04/24/2020 [...] CT chest without contrast is recommended. SL: [id number] at 1116 Reported and signed by: Apryl Almeida D.O. CC: Humberto Tee MD Technologist: RT Keyon(R) Trnscrd Date/Time/By: 04/24/2020 (1116) : By: [email or web address] Orig Print D/T: S: 04/24/2020 (1120) PAGE 1 Signed ReportBASIC METABOLIC [id number] 11:03:00 Test Item Value Reference Range Interpretation [...] = 7.7 mg/dL 8.0-10.5 L CA) PROTHROMBIN [id number] 10:49:00 Test Item Value Reference Range Interpretation [...] o prevent recurre nt infarct). THROMBOPLASTIN TIME [id number] 10:49:00 Test Item Value Reference Range Interpretation Comments THROMBOPLASTIN TIME 31.1 Seconds 25.0-39.5 N Ther apeutic PARTIAL (test code = Range: 50.4 - 88.3 PTT) Seconds Effective 10/09/2018 CBC W/AUTO [id number] 10:36:00 Test Item Value Reference Range Interpretation [...] REQUIRED (test code = MDIFF) CBC W/AUTO [id number] 10:36:00 Test Item Value Reference Range Interpretation [...] DIFF REQUIRED (test code NO = MDIFF) [id number] 13:13:00Negative *NA*(10/24/18 8:13 AM)[facility] PGFXIWPKUX3455-97-99 13:13:00Negative *NA*(10/24/18 8:13 AM)[facility] RPAKKCYIDQ1500-11-68 13:13:00Negative *NA*(10/24/18 8:13 AM)[facility] IANSPOA8855-34-91 13:07:00Negative (10/24/18 8:07 AM)[facility] HNGHBOW1559-72-56 13:07:00Negative (10/24/18 8:07 AM)[facility] BANK AEBUSPS7451-85-31 13:07:00Negative (10/24/18 8:07 AM)[facility] NKMCEPEBGSVX6234-35-57 13:01:5014.8[facility] UvpkatxGYVKBDASJYCK7751-85-44 13:01:507[facility] ZinzqsfOVDDGYYBHENZ6051-34-11 13:01:508.2[facility] DUJXOQJPKZSN5118-24-39 13:01:71060Vqzornbh GifavwgRYSLOUKBIHME8561-34-93 13:01:5074[facility] FvwmlecTLCWTVSWZQOV1710-16-80 13:01:509.58[facility] JYDZLVZTMGHI7750-42-69 13:01:504.8[facility] LjdvqrtCBONGJIMNQGU1023-94-25 13:01:5021[facility] YuaosvgBYPECJVREJBT2198-24-61 13:01:93528[facility] HJTZLHYJCJFM9807-87-37 13:01:88170Afbjncrk DhubqrmEUJDJWDTLU7048-22-15 13:01:50 Test Item Value Reference Range Interpretation Comments INR (test code = INR) 1.05 1 0.85-1.17 [facility] AhnmtigQCRJNTTOXR1242-33-77 13:01:50 Test Item Value Reference Range Interpretation Comments PT (test code = PT) 13.5 s 12.0-14.7 [facility] KafqaoyKWXELELQIS7776-42-68 13:01:50 Test Item Value Reference Range Interpretation Comments PTT (test code = PTT) 30.3 s 22.9-35.8 [facility] PogzsaoTIZHTIIYSD1924-46-90 13:01:508.5[facility]ann[facility]MATOLOGY 2018-10-24 13:01:504.2[facility] PkldnexTRCHWLNBUH4748-56-72 13:01:5014.6[facility] IdwbextLDOWENSMWW9010-74-76 13:01:64493Cqyhbjvx BwugpffWIKOBNTNCZ7813-82-50 13:01:5034.0[facility] WjapdztCCAGWXURSF1196-24-06 13:01:5085.3[facility] XDJFBNYLHR7704-51-22 13:01:50 Test Item Value Reference Range Interpretation Comments MCH (test code = MCH) 29.0 pg 27.0-31.0 [facility] AiavseoZNUIMUYUCJ2236-91-53 13:01:5020.9[facility]annHEMATOLOGY 2018-10-24 13:01:507.1[facility] IuvfvkpSSGXIZKDMM6097-08-28 13:01:502.45[facility] VapquxkAGEYHHSDCI8725-44-17 13:01:500.1[facility] DlnzivsCBKFGJVGLG5098-26-56 13:01:5014.3[facility] ZtpijkcFJKQIXMNXP1789-63-61 13:01:5071.6[facility] YLMNRYTAWX6186-08-70 13:01:503.0[facility] TsavoktPROECCCZCE1846-04-48 13:01:500.4 [facility] NfjucgrPIPACWIWED9043-26-29 13:01:500.6[facility] HermannHEMATOLOGY 2018-10-24 13:01:500.6[facility] NdqpnpjYZXDFTEHPI1748-04-79 13:01:502.7[facility] EigzrslVCUBRKZMED6173-05-18 13:01:5010.8[facility] VujxudbAHXHPHAAMHLQ1615-51-87 13:01:5014.8[facility] GdomrjiMWHGRMOEYHCA6361-13-31 13:01:507[facility] DSMNLIPNIHJO5068-34-82 13:01:508.2[facility] ZmzuuzfDAVDUMKIEGEW0860-21-05 13:01:41661Wdaqcomt UogqttqWWQSLJXFBOJV3446-98-36 13:01:5074[facility] INLGBGHEEUJO1137-69-43 13:01:509.58[facility] AomhuosKBDHCZWTZSHE4514-90-81 13:01:504.8[facility] GlrmsdyCVMWFTQPTOTU2875-77-88 13:01:5021[facility] CKVZMUXNISYC4045-21-79 13:01:53133Dgcgdimt FytcrepITMZPAAZLNMP1795-47-97 13:01:09170Kpavbpui GqiagfgQLPIHSWVNS9649-29-59 13:01:50 Test Item Value Reference Range Interpretation Comments INR (test code = INR) 1.05 1 0.85-1.17 [facility] VrywqhdUBGJCPAKMO1371-86-09 13:01:50 Test Item Value Reference Range Interpretation Comments PT (test code = PT) 13.5 s 12.0-14.7 [facility] LtwvzxqAAZWKSAXOW3289-72-32 13:01:50 Test Item Value Reference Range Interpretation Comments PTT (test code = PTT) 30.3 s 22.9-35.8 [facility] DugfcmbYEYFNAPQZM0327-45-25 13:01:508.5[facility]annHEMATOLOGY 2018-10-24 13:01:504.2[facility] BjwjakqZXSTQUYCQU9169-16-59 13:01:5014.6[facility] SdlrshmOTCRMTPPEJ2557-36-82 13:01:20988Abzynygf MagtndqJCXCXBMQPR5717-18-68 13:01:5034.0[facility] HvgkzgrITQEPVIFEX5037-81-82 13:01:5085.3[facility] KBAREOXFDW5455-64-76 13:01:50 Test Item Value Reference Range Interpretation Comments MCH (test code = MCH) 29.0 pg 27.0-31.0 [facility] OxltrfdSHCGWFMNML1369-22-13 13:01:5020.9[facility]annHEMATOLOGY 2018-10-24 13:01:507.1[facility] AuvvoxkFPIJWEGFBO1107-35-85 13:01:502.45[facility] UgldteuBPFVMTLZOW6213-22-23 13:01:500.1[facility] NxktohwUAQVYMAWTN3706-33-78 13:01:5014.3[facility] LwwczvlGXMMJKZEXZ4056-48-93 13:01:5071.6[facility] QLMCOAABFB9066-17-15 13:01:503.0[facility] GkyfwsjDYVPAOMJYD5212-11-24 13:01:500.4 [facility] GckaqzxHHHKVZZWRK4293-21-94 13:01:500.6[facility]annHEMATOLOGY 2018-10-24 13:01:500.6[facility] NztojtmLQCZMCPLZT9375-98-13 13:01:502.7[facility] ZqcczquTZODVNRCCR4816-09-66 13:01:5010.8[facility] AbimxvcYUYUTBBOBDRI8433-47-23 13:01:5014.8[facility] NrodjdbFIQYKZMDAGAS6518-16-90 13:01:507[facility] DEDDZQTZQRHV3447-81-44 13:01:508.2[facility] IdqbvzdSPXJSDRCUGRD9055-75-77 13:01:90357Usqhdidf RghtxjhEPXRWRVEYFCJ9915-24-46 13:01:5074[facility] WQJVSVGDDRCF7983-87-70 13:01:509.58[facility] VxmtestNIJWVKDJNNAO7686-02-18 13:01:504.8[facility] JjjcbqfAEXTBKVASSSJ4690-30-43 13:01:5021[facility] ZRTJEEPFYRKX8868-67-03 13:01:65195Yvqosxyn UablkxuOSTDSPZIAOTQ3251-42-44 13:01:63008Mofzbwkg ZkpxgbaQTLBKZRXZV2565-45-95 13:01:50 Test Item Value Reference Range Interpretation Comments INR (test code = INR) 1.05 1 0.85-1.17 [facility] FuuxkyyLNSFBRUHZK3985-23-21 13:01:50 Test Item Value Reference Range Interpretation Comments PT (test code = PT) 13.5 s 12.0-14.7 [facility] DwxdqrlEGSBEIAHFU4453-76-92 13:01:50 Test Item Value Reference Range Interpretation Comments PTT (test code = PTT) 30.3 s 22.9-35.8 [facility] GujaytwTCDXRAEDST9024-45-01 13:01:508.5[facility] HermannHEMATOLOGY 2018-10-24 13:01:504.2[facility] PdhqdxjZSPGFDLQCI4015-00-89 13:01:5014.6[facility] FosptkpEIGWOVIAHY6864-45-68 13:01:72095Gkrwapsa HdmfnzxKQACJNTRDB4090-97-68 13:01:5034.0[facility] NjncgorIBUUAWWRBE7940-54-36 13:01:5085.3[facility] LZNFPOBLJA3884-01-73 13:01:50 Test Item Value Reference Range Interpretation Comments MCH (test code = MCH) 29.0 pg 27.0-31.0 [facility] HzqgkvuDLHPKSUEIO7386-72-17 13:01:5020.9[facility] HermannHEMATOLOGY 2018-10-24 13:01:507.1[facility] OkffkjnGABNYNJFGX5060-39-00 13:01:502.45[facility] ZvkxscjJEXLPKLOCC4065-27-28 13:01:500.1[facility] RqjhcdvYJCWHCSEIQ1011-74-82 13:01:5014.3[facility] JzyfdcyIESBJSSQMG0582-19-94 13:01:5071.6[facility] XGQJVSSIIN9289-21-08 13:01:503.0[facility] QumgdjzQWRTPLOLMT1455-64-71 13:01:500.4 Memorial OsehixpNBVDLZOXCU1736-01-36 13:01:500.6[facility]annHEMATOLOGY 2018-10-24 13:01:500.6[facility] RohnaqdPMWRKLPSDZ1872-69-94 13:01:502.7[facility] OhutcvcNSCUKKZQLI9966-51-27 13:01:5010.8[facility] HermannBACTERIAL - SEROLOGY 2018-09-24 11:32:00Negative (09/24/18 6:32 AM)[facility]annBACTERIAL - SEROLOGY 2018-09-24 11:32:00Negative (09/24/18 6:32 AM)[facility]annBACTERIAL - SEROLOGY 2018-09-24 11:32:00Negative (09/24/18 6:32 AM)[facility] HermannELECTROLYTES 2018-09-24 11:09:004.4[facility] EknwdjzGSLUEDZEBFMK9431-03-70 11:09:004.4[facility] XddorjeJGPAPTAPAYKV1497-74-81 11:09:004.4[facility] HermannBLOOD BANK RESULTS 2018-09-24 11:05:00Negative (09/24/18 6:05 AM)[facility] HermannCHEM MORUH2966-56-68 11:05:006[facility] HermannCHEM JDZRG1863-67-64 11:05:000.2[facility] HermannCHEM IXIIP1405-21-57 11:05:008[facility] HermannCHEM CLPEL2656-87-84 11:05:0064[facility] HermannCHEM XCFDJ1721-98-39 11:05:0015[facility] HermannCHEM ATOUC1970-36-68 11:05:004.5[facility] HermannCHEM YIKXU2443-33-65 11:05:007.3[facility] HermannCHEM NIKIL3538-59-58 11:05:0020[facility] HermannCHEM CKUAR1335-03-01 11:05:003.3 [facility] HermannCHEM NNXOY0132-65-25 11:05:008.4[facility] HermannCHEM PANEL 2018-09-24 11:05:20174Qdcpeynj HermannCHEM PGOWK6726-24-28 11:05:0010.30[facility] HermannCHEM VMQOF3572-58-37 11:05:52730Ofkwmyae HermannCHEM GOQYX8844-63-34 11:05:34873Zdjykkss HermannCHEM CUMUA3014-93-27 11:05:0076[facility] HermannCHEM ZTFZF4133-72-05 11:05:00 Test Item Value Reference Range Interpretation Comments A/G Ratio (test code = A/G Ratio) 0.8 1 0.7-1.6 [facility] HermannCHEM ZIQRC7277-30-93 11:05:00 Test Item Value Reference Range Interpretation Comments B/C Ratio (test code = B/C Ratio) 7 1 6-25 [facility] HermannCHEM XYYEK5738-42-71 11:05:004.0[facility] HermannCHEM PANEL 2018-09-24 11:05:0013.5[facility] KzvxdtgHPHGMITQEQ9305-72-01 11:05:001.0[facility] SiysozkCLYPUDZDCI6969-83-45 11:05:000.1[facility] AgdzmibKPSOOQLJVY5503-28-62 11:05:000.2[facility] SzlseomARBMIILEXV5911-50-85 11:05:000.9[facility] IWJKPJZGJZ5665-55-93 11:05:002.2[facility] SocohznIGSGRNVLRN9384-47-92 11:05:002.0 [facility] MopdqgrFIWLNMDWNF3043-42-94 11:05:003.2[facility] HermannHEMATOLOGY 2018-09-24 11:05:0016.1[facility] SasrrmzPLVJSJWLYS2079-24-12 11:05:0042.0[facility] UdqtuqqYNIRYYMTFY3773-24-61 11:05:0038.7[facility] NxwlcpjJYEKQCOHBE9431-16-62 11:05:00 Test Item Value Reference Range Interpretation Comments PT (test code = PT) 14.5 s 12.0-14.7 [facility] NzplzxbFUIZBPUIDU5433-59-17 11:05:00 Test Item Value Reference Range Interpretation Comments INR (test code = INR) 1.15 1 0.85-1.17 [facility] DdrpwfxTEUAAFROIL8167-75-81 11:05:00 Test Item Value Reference Range Interpretation Comments PTT (test code = PTT) 31.4 s 22.9-35.8 [facility] BnvpzoqLKUMSTJKOO3988-58-51 11:05:007.5[facility] HermannHEMATOLOGY 2018-09-24 11:05:0021.9[facility] NyjdskaCZJEQFYWQD3223-81-89 11:05:00 Test Item Value Reference Range Interpretation Comments MCH (test code = MCH) 28.5 pg 27.0-31.0 [facility] HhiniueSSTMTVFUKQ1132-83-77 11:05:0034.4[facility] HermannHEMATOLOGY 2018-09-24 11:05:0014.2[facility] IweajzsGWFGTXPWQX7564-53-65 11:05:74849Bndbgbtp NknihnwGJCEPVXWIG3188-84-80 11:05:005.3[facility] DdkwzskZFEYMYBWVO6542-86-66 11:05:0082.8[facility] RtsjbfjTYSIRQFJSV9483-65-55 11:05:002.65[facility] SJJUIWQJLH6134-03-20 11:05:008.7[facility]annBLOOD BANK JIWTQGF9216-01-88 11:05:00Negative (09/24/18 6:05 AM)[facility] HermannCHEM PNWOS9288-27-46 11:05:006 [facility] HermannCHEM QYYMH7059-97-21 11:05:000.2[facility] HermannCHEM PANEL 2018-09-24 11:05:008[facility] HermannCHEM PQMSE0078-37-14 11:05:0064[facility] HermannCHEM LDQGC5879-92-61 11:05:0015[facility] HermannCHEM YGQBH7216-05-04 11:05:004.5[facility] HermannCHEM AVLQT1899-16-35 11:05:007.3[facility] HermannCHEM MJJXM3521-56-50 11:05:0020[facility] HermannCHEM QSIBE5295-80-98 11:05:003.3 [facility] HermannCHEM XJCKX0767-29-90 11:05:008.4[facility] HermannCHEM PANEL 2018-09-24 11:05:58958Uixmjcqt HermannCHEM ZKTRM4178-11-49 11:05:0010.30[facility] HermannCHEM ICFSZ5338-40-77 11:05:76618Pfvxlmmr HermannCHEM AYIKA7432-57-56 11:05:98318Vrrmrzfr HermannCHEM XJWPS5165-63-94 11:05:0076[facility] HermannCHEM GYBCD1143-80-44 11:05:00 Test Item Value Reference Range Interpretation Comments A/G Ratio (test code = A/G Ratio) 0.8 1 0.7-1.6 [facility] HermannCHEM OWTXL6286-74-75 11:05:00 Test Item Value Reference Range Interpretation Comments B/C Ratio (test code = B/C Ratio) 7 1 6-25 [facility] HermannCHEM LRFKQ4210-35-00 11:05:004.0[facility] HermannCHEM PANEL 2018-09-24 11:05:0013.5[facility] HhbfojrWPMELZOBQA3562-98-81 11:05:001.0[facility] DllpqxoZFGDJLSDTO3279-12-61 11:05:000.1[facility] NxtdzlyPTWMAKDCKO1210-32-04 11:05:000.2[facility] WpgkrgoYJHIHJSWIG6760-38-48 11:05:000.9[facility] VIDAJFWLOC1782-46-30 11:05:002.2[facility] PvtnitlPFTUHMRKNN8684-27-69 11:05:002.0 [facility] EvlshtzGWMUPCALDX7672-67-95 11:05:003.2[facility] HermannHEMATOLOGY 2018-09-24 11:05:0016.1[facility] IzkusspGVQNWZTWZD5357-49-29 11:05:0042.0[facility] DgdzkuvMLOYYWNNBM9294-24-90 11:05:0038.7[facility] GcitoroTVCRXPWZRP4618-28-95 11:05:00 Test Item Value Reference Range Interpretation Comments PT (test code = PT) 14.5 s 12.0-14.7 [facility] KssgywcXBGTXGJGDT5534-61-07 11:05:00 Test Item Value Reference Range Interpretation Comments INR (test code = INR) 1.15 1 0.85-1.17 [facility] YvcslviCNQHEOJWNQ3385-82-35 11:05:00 Test Item Value Reference Range Interpretation Comments PTT (test code = PTT) 31.4 s 22.9-35.8 [facility] MmhwtulXOBLVJIVKO7927-77-28 11:05:007.5[facility] HermannHEMATOLOGY 2018-09-24 11:05:0021.9[facility] XpbvzudFYULFWXSSJ3297-59-49 11:05:00 Test Item Value Reference Range Interpretation Comments MCH (test code = MCH) 28.5 pg 27.0-31.0 [facility] PsjthrnZYCNRYDDMR6473-84-85 11:05:0034.4[facility] HermannHEMATOLOGY 2018-09-24 11:05:0014.2[facility] PheoqegDIOXYFQKFP2284-08-81 11:05:71641Odtycuyk RdhcyxxYOHPYNBWOF6158-41-02 11:05:005.3[facility] OziniumSVOWMKWORA6247-34-20 11:05:0082.8[facility] XeisbpeABBOZZWIOB5761-50-95 11:05:002.65[facility] YLCDYRJVOT5604-62-89 11:05:008.7[facility]BL[facility] GCQSXLI3269-60-82 11:05:00Negative (09/24/18 6:05 AM)[facility]annCHEM GRAJJ4532-41-09 11:05:006 [facility]annCHE[facility] VAHZS4309-90-74 11:05:000.2[facility]annCHEM PANEL 2018-09-24 11:05:008[facility]annCHE[facility] CIUXV0938-61-96 11:05:0064[facility]annCHEM JETFD9861-75-83 11:05:0015[facility]annCHE[facility] IKRIV0933-16-19 11:05:004.5[facility]annCHE[facility] YNCCC5438-69-11 11:05:007.3[facility]annCHE[facility] ZLFYT2228-16-48 11:05:0020[facility]annCHE[facility] VYWXX0067-23-15 11:05:003.3 [facility]annCHE[facility] CYDKI9794-77-68 11:05:008.4[facility]annCHEM PANEL 2018-09-24 11:05:44528Nacilgir HermannCHEM MFLAR2948-56-54 11:05:0010.30[facility]annCHEM XRWYL7087-63-67 11:05:28504Fxthgaxj HermannCHEM IDRBP4384-55-85 11:05:59260Vgvnunfp [facility]annCHEM GONZT6640-37-09 11:05:0076[facility]annCHEM WUSYL4598-73-84 11:05:00 Test Item Value Reference Range Interpretation Comments A/G Ratio (test code = A/G Ratio) 0.8 1 0.7-1.6 [facility] HermannCHEM JHWTU0769-10-12 11:05:00 Test Item Value Reference Range Interpretation Comments B/C Ratio (test code = B/C Ratio) 7 1 6-25 [facility]annCHE[facility] WIMNQ4828-24-92 11:05:004.0[facility]annCHEM PANEL 2018-09-24 11:05:0013.5[facility] TxurrbfFNXDGCOSZQ9411-01-65 11:05:001.0[facility] NmtdnqbMWNLTXXGSP3904-33-61 11:05:000.1[facility] RzlgzigHVJWEXYITX9970-52-58 11:05:000.2[facility] DcvxyocRNMOFPIZFC4984-78-86 11:05:000.9[facility] YIRFCBYRZF9060-06-31 11:05:002.2[facility] OorbaydCNFKDGDXTD5443-58-24 11:05:002.0 [facility] NisjtzqZXGWXGVDLK4613-68-75 11:05:003.2[facility]annHEMATOLOGY 2018-09-24 11:05:0016.1[facility] MnhdiydUGVNBEBHCQ1443-54-37 11:05:0042.0[facility] RbwanmvEOJVHDHPJU0581-56-91 11:05:0038.7[facility] VadqdlpRXQCZOEGXJ4266-66-86 11:05:00 Test Item Value Reference Range Interpretation Comments PT (test code = PT) 14.5 s 12.0-14.7 [facility] JsibpwzOLZWACEEMJ4435-49-39 11:05:00 Test Item Value Reference Range Interpretation Comments INR (test code = INR) 1.15 1 0.85-1.17 [facility] VzrtifjTETYWWSFFB9552-50-21 11:05:00 Test Item Value Reference Range Interpretation Comments PTT (test code = PTT) 31.4 s 22.9-35.8 [facility] GvwnzcgYCPIWFAVIH4126-55-28 11:05:007.5[facility] HermannHEMATOLOGY 2018-09-24 11:05:0021.9[facility] MixjlkvMNTGCLDIGP8795-08-95 11:05:00 Test Item Value Reference Range Interpretation Comments MCH (test code = MCH) 28.5 pg 27.0-31.0 [facility] VwrvmlnYFAZNSIKKX2046-31-13 11:05:0034.4[facility]annHEMATOLOGY 2018-09-24 11:05:0014.2[facility] HdmlkjvFAVDKDDFZT4149-96-55 11:05:00054Goffqcgc OcihwqvLJDBBDVMUO9800-00-65 11:05:005.3[facility] FwtkarrRHIVHMBGVT1072-56-36 11:05:0082.8[facility] PesyyoqZFMIYIRWWT7025-18-12 11:05:002.65[facility] KVJEQOSKTR4401-15-77 11:05:008.7[facility] HermannCHEM GXFMZ2656-78-71 05:26:005.7 [facility] UyezbcqIKSNOWEEFONS8549-21-61 05:26:07570Ubyicdsy HermannELECTROLYTES 2018-03-28 05:26:004.9[facility] WnwxdihHFJSTWSQBGIE0556-84-39 05:26:39193Swtcxuyy FehuvcdBIBPOVRDACKI9722-56-84 05:26:43647Kyrnfmul RcjypnxCMNSZTWYMADM7392-93-61 05:26:0067[facility] HkrmyeoTLILQPZUCEXG3635-68-88 05:26:008.79[facility] NMKHJBAKEMIM7803-32-41 05:26:0013.9[facility] QdwezueMZEUNKWWVKEQ3377-63-76 05:26:008.1[facility] UpxfxveIIRXDSHMXSZE4853-76-54 05:26:0026[facility] RSSWNVKRRYJM1780-89-29 05:26:008[facility] AmggdlhSFDBKZASOG0715-47-96 05:26:00 Negative *NA*(03/28/18 12:26 AM)[facility]annPARATHYROID SQOGUOF7359-39-49 05:26:09809.3[facility] HermannCHEM ONWEG9217-36-17 05:26:005.7[facility] FPWPCBFDSXHA8831-61-26 05:26:47298Pofyrxeb WwbcsqkSFZVYIAGDOBG8511-24-22 05:26:004.9[facility] XyjndpfXJJKILBGUVQA3087-30-76 05:26:38298Ruzvoxtn [facility] KETJFTJYZEAV7466-67-89 05:26:94965Nfzosano FvnfbfvGGKQIXVBBPOE6196-35-49 05:26:0067[facility] QxeadpeZZFXZUOFLHYH3322-37-74 05:26:008.79[facility] HNTHASINIAQN0586-65-19 05:26:0013.9[facility] BnuuvkzVHZJPNLZLBNX1192-54-05 05:26:008.1[facility] CifzjpfSVEHLPBHFNEB5409-11-64 05:26:0026[facility] UNHTPMPFYSSA1643-91-64 05:26:008[facility] HofxzmjPVBPRQTJRS4938-67-20 05:26:00 Negative *NA*(03/28/18 12:26 AM)[facility] HermannPARATHYROID QFXQARH8606-56-66 05:26:27588.3[facility] HermannCHEM NCLSV4189-77-71 05:26:005.7[facility] ORFBMOKRFFXD8066-88-50 05:26:16969Vcnnouuh KwbxrnlQLPLWXGQHTJP3481-39-23 05:26:004.9[facility] LivlpllDLQSJKXFCDNX4441-44-67 05:26:96618Bijzvhut [facility] LUNNEDWPNFIF5639-96-97 05:26:57288Zypjmdte SgaxyhjYXEAKLHYSSPT9449-71-66 05:26:0067[facility] RmobppiELEUYLGIUNOE7673-63-48 05:26:008.79[facility] OAEFNRBYFWHB2854-08-04 05:26:0013.9[facility] GbkvlshTQDVUYLMCKEM4107-26-98 05:26:008.1[facility] CmmadydGUXZLIDSAHQL5073-81-97 05:26:0026[facility] QYPMWIBVEXXN5932-54-76 05:26:008[facility] RvrvcbdHDKNDBWZJV3731-55-88 05:26:00 Negative *NA*(03/28/18 12:26 AM)[facility]annPARATHYROID SCSRHLE2595-61-58 05:26:28197.3[facility] HermannPARATHYROID XAPUVFM8531-66-07 18:43:42306.7[facility] HermannPARATHYROID DIRCYER4006-27-76 18:43:95364.7[facility] HermannPARATHYROID GDMQVOG5886-32-99 18:43:75467.7[facility] HermannCHEM EWXYX1949-99-76 17:20:007 [facility]annCHEM CBQXJ1714-22-87 17:20:0015.4[facility] HermannCHEM PANEL 2018-03-27 17:20:004.4[facility] HermannCHEM ZLGSS8719-08-61 17:20:63443Evwaqqdg HermannCHEM KEBAL7501-56-64 17:20:0021[facility]annCHEM MYAZY7673-82-92 17:20:008.6[facility]annCHEM MGRJS4792-03-78 17:20:08181Wvxifybc HermannCHEM UQDAO9014-91-22 17:20:008.87[facility]annCHEM RCBJA5713-57-87 17:20:77512 [facility]annCHEM UUQZM4586-89-30 17:20:0064[facility]annURINE CHEM 2018-03-27 17:20:30049.1[facility]annURINE PYEZ5849-97-40 17:20:804786 [facility] NLHK3459-05-86 17:20:0024 (03/27/18 12:20 PM)[facility]ann[facility]INE EGDV1939-26-42 17:20:551291Pbsgdxsl HermannCHEM RSNNW9198-54-59 17:20:007[facility]annCHEM IULFP6629-29-04 17:20:0015.4[facility]annCHEM HUCVF7580-83-71 17:20:004.4[facility]annCHEM GWDHM8815-12-72 17:20:57037 [facility]annCHEM DUNUX9152-59-40 17:20:0021[facility]annCHEM PANEL 2018-03-27 17:20:008.6[facility]annCHEM DIONN6192-84-81 17:20:12590Vgzpfnmu HermannCHEM OAXDY3258-32-36 17:20:008.87[facility]annCHEM SFTMT1666-76-56 17:20:64093Vgpbryum HermannCHEM HPAET1337-56-42 17:20:0064[facility]annURINE TBRK6297-12-61 17:20:74161.1[facility]annURINE DZRY0615-18-79 17:20:838542 [facility] HBGS5200-47-12 17:20:0024 (03/27/18 12:20 PM)[facility]ann[facility]INE HMGW8563-36-16 17:20:077463Hwqridiw HermannCHEM LXGSM0009-30-56 17:20:007[facility]annCHEM IVRWZ4893-25-87 17:20:0015.4[facility]annCHEM PTUGO9987-98-79 17:20:004.4[facility]annCHEM KCRLC8072-82-78 17:20:07258 [facility]annCHEM XDLME5415-95-55 17:20:0021[facility]annCHEM PANEL 2018-03-27 17:20:008.6[facility]annCHEM KHUAO7336-80-61 17:20:33627Ymamhtwm HermannCHEM FYMQG2135-88-62 17:20:008.87[facility]annCHEM OCLBF7889-51-89 17:20:91742Wsauhiib HermannCHEM MBMVN2591-33-42 17:20:0064[facility]annURINE PUTT2463-11-87 17:20:96824.1[facility]annURINE TRSK3257-99-40 17:20:236594 [facility] OQQU3272-83-03 17:20:0024 (03/27/18 12:20 PM)[facility]ann[facility]INE TURE4522-50-31 17:20:701055Zoasyboi DeasusbTWECCKBAIP5596-26-56 06:17:0034.5[facility] KwmkocuIQGXABPXIN0176-87-41 06:17:00Negative *NA*(03/27/18 1:17 AM)[facility] RbijzzoLFBXXCVEYK6514-38-23 06:17:00Non-Reactive (03/27/18 1:17 AM)[facility] CwgvrmjYZCTAZVZUL9486-43-23 06:17:00Negative *NA*(03/27/18 1:17 AM) [facility] IyrswbuYNFANYQGZM3263-71-70 06:17:00Negative *NA*(03/27/18 1:17 AM) [facility] CqrtzfkXQHDCQQZUX2017-32-31 06:17:00Negative *NA*(03/27/18 1:17 AM) [facility] OtpcvfdJBCDEIJKWF5954-64-24 06:17:00Negative *NA*(03/27/18 1:17 AM) [facility] BrylffsGJQGWVRRXQ2001-67-36 06:17:00Negative *NA*(03/27/18 1:17 AM) [facility] HermannCARDIAC UIYSDFD9957-03-51 06:17:08087Ynqgosax HermannCHEM PANEL 2018-03-27 06:17:005.0[facility] ZofppzpEKEYBBMKSWRH1150-38-60 06:17:0014.4 [facility] MlsrcsoCIYYQFEHYFKJ9685-61-14 06:17:007[facility] HermannELECTROLYTES 2018-03-27 06:17:07552Cvpcdvpz RgijnuuXFEUFDYAITKU8963-46-74 06:17:005.4[facility] ZotyaksQYQVEAZVUSLM2264-48-16 06:17:0071[facility] MwrpegwOVRSIZQELDKO1004-61-09 06:17:008.81[facility] BkpphklOHBKIUDNTQWF6496-13-76 06:17:85502Skwflppk [facility] VXRGTUBJINEN4279-48-00 06:17:0020[facility] FnfzgsvZQZJGWZJTGJV4092-02-52 06:17:00 108[facility] JfhujoyAXBHTAMMHWLH0409-05-35 06:17:008.4[facility] HermannHEMATOLOGY 2018-03-27 06:17:0014.7[facility] IaycscmLEVHNMDVBW2992-77-15 06:17:0072.0[facility] BqxqmsuJZZFAJKDAJ1002-02-91 06:17:001.0[facility] VsbccmqXHBWSTWEFX2190-65-18 06:17:009.7[facility] MebbmicSUOJERHLEW9276-17-40 06:17:002.6[facility] JHFAWAEFCF6620-77-41 06:17:000.9[facility] SekivbjTGHJSLVMTI5372-09-01 06:17:000.6 [facility] LuxzwjyZUTMMKQFFH3284-23-17 06:17:004.2[facility] HermannHEMATOLOGY 2018-03-27 06:17:000.1[facility] NxjrhqqIAQPHCIKHM7561-78-73 06:17:000.2[facility] OealsoyXJZMAJSJDT3480-34-99 06:17:009.0[facility] IlncdtgLPESUFKJYE5683-55-63 06:17:68719Hwdlxtog YrelvtvFIMBUPGSVD0728-25-29 06:17:0013.4[facility] WHKXQDEWAR8601-23-74 06:17:005.8[facility] QpxwatiTYNXDUFEGB3904-26-59 06:17:00 2.69[facility] IbpimasCVOQDMHFFY5993-03-42 06:17:00 Test Item Value Reference Range Interpretation Comments MCH (test code = MCH) 29.8 pg 27.0-31.0 [facility] JxaskgoWDRCIIVSMN5376-50-67 06:17:0086.4[facility] HermannHEMATOLOGY 2018-03-27 06:17:0023.2[facility] IofwgrzWKHQQGTSDG0293-02-15 06:17:008.0[facility] PhdtpsmZOCTLIVAHF6665-66-57 06:17:0034.5[facility] WcrwqlpUENAJDWNAW5267-48-78 06:17:00Negative *NA*(03/27/18 1:17 AM)[facility] VlazhbuGNGZNOAWXT0653-47-70 06:17:00Non-Reactive (03/27/18 1:17 AM)[facility] GqljshxRDEQPNNSRL7162-43-41 06:17:00Negative *NA*(03/27/18 1:17 AM)[facility] CgggxaeQXXXMVXSIF0103-04-39 06:17:00Negative *NA*(03/27/18 1:17 AM)[facility] BnjjvzrSDZJUOFVAX2416-19-17 06:17:00Negative *NA*(03/27/18 1:17 AM)[facility] XvpapdvJQWFIDQMPD2860-70-14 06:17:00Negative *NA*(03/27/18 1:17 AM)[facility] WubyignECDLITPNGC7374-80-94 06:17:00Negative *NA*(03/27/18 1:17 AM)[facility] HermannCARDIAC SWLFFTT5953-97-98 06:17:45593Cnunayib HermannCHEM MWTTM3187-84-41 06:17:005.0[facility] APWJGQQIVCKD7223-43-11 06:17:0014.4[facility] RayyjicVSITUVKSAFVD6438-56-22 06:17:007[facility] PvntrieTWPLOKIHWQIN3701-32-59 06:17:15824Bhidgpbh [facility] IQCVWLNFSSLI1466-88-20 06:17:005.4[facility] CgbrfkfLDANHGUWHWBP9322-20-97 06:17:0071[facility] DvonourVYRFVPUATYSL1754-56-21 06:17:008.81[facility] DNUTZQAIQWDD0593-25-48 06:17:70952Avchuzvg WxbfblyWZLSNKRZPGCG6361-68-74 06:17:0020[facility] OxqvgreXDHEEDYQZLXJ1032-46-14 06:17:06550Zpzibbjv [facility] UKDGNRMSXMSP6067-63-43 06:17:008.4[facility] KwaknmlCWSXATGVPI2876-75-35 06:17:00 14.7[facility] XgsmpyhNYZJNFUFKN7637-31-09 06:17:0072.0[facility] HermannHEMATOLOGY 2018-03-27 06:17:001.0[facility] RpxtoajRKLZXGOSVK0781-67-55 06:17:009.7[facility] NqxhajgLFVDSLDAAB8424-99-73 06:17:002.6[facility] FzamdsaEHQRKECAJA9523-32-92 06:17:000.9[facility] FccmiuhLXGGOVJPFI7022-52-04 06:17:000.6[facility] IQYTGWNITF1182-58-51 06:17:004.2[facility] OckiqqkWIWPUPAUHL9294-63-85 06:17:000.1 [facility] HjtrxplCGEIGXHSGN1227-08-32 06:17:000.2[facility] HermannHEMATOLOGY 2018-03-27 06:17:009.0[facility] CmswqxaIAPJLKKFPQ5867-82-83 06:17:60539Faaudjpw HivuyppDOWBVWEJCJ5239-63-79 06:17:0013.4[facility] PptjxpjGBDJSVTUZK1973-28-89 06:17:005.8[facility] TklxtiaKSJIEGVZGY1528-40-71 06:17:002.69[facility] JSJVPNASVB1521-76-37 06:17:00 Test Item Value Reference Range Interpretation Comments MCH (test code = MCH) 29.8 pg 27.0-31.0 [facility] IfortnjNJBKBHYBFE7984-59-41 06:17:0086.4[facility] HermannHEMATOLOGY 2018-03-27 06:17:0023.2[facility] GtmgtxbRECRISSFCN4457-03-34 06:17:008.0[facility] HermannCARDIAC QFVLEBO4678-13-12 06:17:93919Artqgoao HermannCHEM YECBG2403-53-18 06:17:005.0[facility] RbaxtqzGSWETOZBIRHI0018-47-96 06:17:0014.4[facility] GRHWBYLVREYL7336-91-39 06:17:007[facility] HgnvfpgEQZEERKYLVHM4552-47-37 06:17:00 122[facility] MfzcjmuHRVQXWXOBLBM0302-38-29 06:17:005.4[facility] EVMXYDCBLOOS2517-46-80 06:17:0071[facility] XmesqiyQZYUZMEWKXXR6183-80-68 06:17:00 8.81[facility] FqtaqdcVAZPCIGJOAZP4349-79-35 06:17:00809Xmrccxyr [facility] JTGIUJADGBQP7207-07-78 06:17:0020[facility] QvesyobFWGGXKUGOOCK7156-15-72 06:17:00 108[facility] IhkiknnVPBFWWNSZQEP8537-24-65 06:17:008.4[facility] HermannHEMATOLOGY 2018-03-27 06:17:0014.7[facility] LgdfifbWYWANDAEAD5255-74-57 06:17:0072.0[facility] BogpabiWWPOKORGSQ4004-69-99 06:17:001.0[facility] UkzdkjzKHKPDDKTAS3143-56-66 06:17:009.7[facility] JzjzopxCFZRNYQAJZ2414-75-55 06:17:002.6[facility] UIQALUMLWD7450-52-45 06:17:000.9[facility] WemyjnxIZPBKYENVB0228-19-66 06:17:000.6 [facility] VykxeyuVTTJGRHPMN6010-62-12 06:17:004.2[facility] HermannHEMATOLOGY 2018-03-27 06:17:000.1[facility] VwrhqlhOABKVIGXWP3270-21-72 06:17:000.2[facility] KlilafnOWBPLWGMIJ1413-73-65 06:17:009.0[facility] JqkhdwdAAYEMXNEJV0242-78-26 06:17:96762Tfxfopho VgyzfvkHRLESMJZTC2539-04-03 06:17:0013.4[facility] CIDKRWOAAY6934-22-80 06:17:005.8[facility] YkkdsabBYCWOFIKFC8250-14-31 06:17:00 2.69[facility] UqisyhxXZBVTPDGOH9674-56-65 06:17:00 Test Item Value Reference Range Interpretation Comments MCH (test code = MCH) 29.8 pg 27.0-31.0 [facility] IiqxunnHQHDJVXPSN4990-04-33 06:17:0086.4[facility] HermannHEMATOLOGY 2018-03-27 06:17:0023.2[facility] QvutcsyNMVQNDCHAW2252-38-83 06:17:008.0[facility] VykdvutLNVEBTJIOJ0084-63-87 06:17:0034.5[facility] GgbwbbdXFQDWVTERD1060-17-34 06:17:00Negative *NA*(03/27/18 1:17 AM)[facility] LszjhycSISRIUBTNY5764-95-50 06:17:00Non-Reactive (03/27/18 1:17 AM)[facility] SbilsbcNUCCWEEBRQ4349-26-88 06:17:00Negative *NA*(03/27/18 1:17 AM)[facility] LjfbitkSRYORSGRJY4503-58-90 06:17:00Negative *NA*(03/27/18 1:17 AM)[facility] IrhmyywYSCWWQHJMY8788-71-52 06:17:00Negative *NA*(03/27/18 1:17 AM)[facility] CfjfrmzYFUKUYOZDB6469-41-25 06:17:00Negative *NA*(03/27/18 1:17 AM)[facility] OmrkxlnQUCJGSFHUV1353-69-02 06:17:00Negative *NA*(03/27/18 1:17 AM)[facility] HermannCARDIAC MNMOEZY6611-87-59 20:03:85416Vowrcldq HermannCARDIAC KTURJMY6856-64-28 20:03:04379Kwstsxfj [facility] CARDIAC NKUXQPY0294-91-24 20:03:87792Gnpozcld HermannCHEM AQSAL5288-25-78 08:05:005.6[facility] HermannCHEM QRRWG9427-93-55 08:05:001.9[facility] LTQXAGPMYC7871-71-85 08:05:000.5[facility] NxzzjzzPRPHEWWBUG5056-64-73 08:05:000.7 [facility] NwndgtrNDEOOIGEIK1969-44-99 08:05:002.3[facility] HermannHEMATOLOGY 2018-03-26 08:05:000.9[facility] FqidicbZXOGZUSVMU9849-83-77 08:05:003.7[facility] FwqszuzTIHCKKIRJW2247-00-51 08:05:0069.2[facility] FqwnxkzOBXDQNBZZX3220-06-68 08:05:0010.1[facility] VnxfmygHPXOMTKNLN0158-44-19 08:05:0017.7[facility] VVCFYHFDNN1463-46-48 08:05:000.1[facility] XvlouqnXJNHXKKAMZ7738-04-02 08:05:008.9 [facility] NoylmrmRLJUULSKYD5515-55-56 08:05:79404Xhszrpwi HermannHEMATOLOGY 2018-03-26 08:05:00 Test Item Value Reference Range Interpretation Comments MCH (test code = MCH) 29.8 pg 27.0-31.0 [facility] VcwrqplLJSBKAIIGD1512-79-69 08:05:0085.5[facility] HermannHEMATOLOGY 2018-03-26 08:05:0013.0[facility] VcxadfvIUQUWRWWZE7860-53-84 08:05:0034.9[facility] ErvznatTDIJRTOGDU1917-34-33 08:05:0022.9[facility] SzccapxYFTTXKUTLH5534-48-92 08:05:008.0[facility] VgvfkmvEQCLEKYOND7258-57-69 08:05:002.68[facility] QAHNVHBWFG7668-19-04 08:05:005.3[facility] HermannCHEM MHRCH1266-13-20 08:05:005.6 [facility] HermannCHEM JKJFH9830-59-59 08:05:001.9[facility]annHEMATOLOGY 2018-03-26 08:05:000.5[facility] NwdgdkhLRDTSHYDLD2888-64-16 08:05:000.7[facility] ItvppjzRICXCIGDCA4851-17-75 08:05:002.3[facility] RqbuonrGCKEMHOMAH0770-52-33 08:05:000.9[facility] VtqnqxbZVZZOMQDIB6075-23-04 08:05:003.7[facility] PFUYGYVRCI7937-84-31 08:05:0069.2[facility] WwifbeaTXGKRVYWFQ6948-50-66 08:05:00 10.1[facility] DehvyuwNTRBLOCIFY4509-89-15 08:05:0017.7[facility] HermannHEMATOLOGY 2018-03-26 08:05:000.1[facility] QzsfblgADBXSIUOYU2371-76-85 08:05:008.9[facility] IaqlybdYJPDOFAWNY2622-89-91 08:05:58208Zuqzbeos RqbfcnlSOSDFYTNMW0255-34-49 08:05:00 Test Item Value Reference Range Interpretation Comments MCH (test code = MCH) 29.8 pg 27.0-31.0 [facility] XltanlfBRNGRBFLYJ5572-45-91 08:05:0085.5[facility] HermannHEMATOLOGY 2018-03-26 08:05:0013.0[facility] LykqiicGCGTSGENPN1897-27-61 08:05:0034.9[facility] CpqlwbqRNQYNOHLMA3354-85-62 08:05:0022.9[facility] CgqwtgyDZDGWCSBYY6179-14-97 08:05:008.0[facility] GrpmdpmUKMWBVSEBR8847-85-73 08:05:002.68[facility] NTURFMVUCZ5386-18-10 08:05:005.3[facility] HermannCHEM OMVEO0844-04-79 08:05:005.6 [facility]annCHEM FYZKC0809-77-36 08:05:001.9[facility]annHEMATOLOGY 2018-03-26 08:05:000.5[facility] HytudxgRBBRQORGHB0718-07-23 08:05:000.7[facility] XvdvqiqJWSTWPPHFH1875-28-08 08:05:002.3[facility] JesrlnpJJKUGHHWQZ4957-29-35 08:05:000.9[facility] ColalhhLCYXPZFXGH8119-48-73 08:05:003.7[facility] XLIKTTZLFN8296-37-06 08:05:0069.2[facility] OsbqrnpBFSBJQJWWO2504-44-74 08:05:00 10.1[facility] DhvaaaxFGHVEYYAUE3337-08-87 08:05:0017.7[facility]annHEMATOLOGY 2018-03-26 08:05:000.1[facility] SfjgiluVIHREDTJWT8092-36-31 08:05:008.9[facility] KpbrknmVYZBCUXIHO8005-37-84 08:05:04587Abbgjryb WduznskYVNOZELGRS4096-94-63 08:05:00 Test Item Value Reference Range Interpretation Comments MCH (test code = MCH) 29.8 pg 27.0-31.0 [facility] NfbrnsnDDAHXIBYFH3816-35-31 08:05:0085.5[facility] HermannHEMATOLOGY 2018-03-26 08:05:0013.0[facility] MteituoJHWEWGXMLR7817-67-16 08:05:0034.9[facility] VvphwjtZPDMMLISHX2599-77-11 08:05:0022.9[facility] YddpeddXFPSZRMBCN6788-90-64 08:05:008.0[facility] BaejusaZKOYRCXMWU0293-61-41 08:05:002.68[facility] XOXVMOBUDI4157-10-00 08:05:005.3[facility] HermannCHEM LLSHC9682-57-54 08:18:001.6 [facility] CeggfryGXUKUCSHCH8440-85-80 08:18:003.9[facility] HermannHEMATOLOGY 2018-03-25 08:18:000.2[facility] EracdoyNFDGBOKFWF9280-17-12 08:18:000.6[facility] LypsvyjKQOMIGMIUM3523-83-39 08:18:000.9[facility] JyrcgghZWXKKVTMDP7939-25-30 08:18:000.7[facility] ZsqjrryVWFKOLNTBX7072-80-45 08:18:0069.1[facility] TIOKCAORJK5515-74-03 08:18:0010.6[facility] AfbskmkZESENLPTHG9913-05-69 08:18:00 2.7[facility] PecvvxhAOJOCYDGOQ6943-76-81 08:18:0016.9[facility] HermannHEMATOLOGY 2018-03-25 08:18:005.6[facility] PduxkqaQMJHBTSOLC4061-22-07 08:18:008.1[facility] KcgtmniQCZEBCKIIZ3448-48-55 08:18:002.68[facility] OblrmspNVCUVVBZSG5643-46-47 08:18:0085.7[facility] TgujoxnJVUCAMSFXX2421-15-53 08:18:00 Test Item Value Reference Range Interpretation Comments MCH (test code = MCH) 30.1 pg 27.0-31.0 [facility] EcqilbaGMNXDIDVAG4910-37-93 08:18:0035.2[facility] HermannHEMATOLOGY 2018-03-25 08:18:0023.0[facility] WkjrvtyOTCKWXOZKL4569-28-27 08:18:0013.3[facility] DzzpjftSYLTDSJHNU4999-16-77 08:18:61509Ogolpqwh KdsoxujHQFIVNDEKK0551-55-20 08:18:009.0[facility] HermannPARATHYROID YCHLSIH5239-26-97 08:18:001.07[facility] HermannPARATHYROID AWTEVMT5983-56-69 08:18:001.14[facility] HermannCHEM PANEL 2018-03-25 08:18:001.6[facility] CtkdjlsQTGABZTALI5348-61-39 08:18:003.9[facility] UihjsexCJFPMCWLYF2715-07-82 08:18:000.2[facility] OcpwfipRSLEXAYIJN9967-97-38 08:18:000.6[facility] LchodqvRBCVVVMDZV6636-40-33 08:18:000.9[facility] HBBQTXFEBJ3186-01-35 08:18:000.7[facility] XvsuagmMKJJEAUNOK3270-71-82 08:18:00 69.1[facility] GvwjuxhCMRTJCDOKZ8395-81-03 08:18:0010.[facility]annHEMATOLOGY 2018-03-25 08:18:002.7[facility] MfkcppnUZRTMKIEGV4793-75-56 08:18:0016.9[facility] ZdytcxrLNCVSHARNT6968-47-18 08:18:005.[facility] GlwruweDGWNLNWNLM7399-71-84 08:18:008.1[facility] HjgysftRHJUVBYLMX9484-70-53 08:18:002.68[facility] IDCLNOJHWP3992-27-62 08:18:0085.7[facility] PjgxhwgOFVIOZIJBL0437-64-04 08:18:00 Test Item Value Reference Range Interpretation Comments MCH (test code = MCH) 30.1 pg 27.0-31.0 [facility] JtatpxnAEWMICKGWE2265-03-25 08:18:0035.2[facility] HermannHEMATOLOGY 2018-03-25 08:18:0023.0[facility] MywetzmIDNLKGYCEL6764-79-66 08:18:0013.3[facility] ZwezuzkDDKYIBVMTI2816-90-52 08:18:42063Lncjyohe HeesficDYNKZRXSWC3272-66-06 08:18:009.0[facility] HermannPARATHYROID XRFWPBY6092-89-02 08:18:001.07[facility] HermannPARATHYROID GNESGWU2562-74-72 08:18:001.14[facility] HermannCHEM PANEL 2018-03-25 08:18:001.emorial AenoftoVPGONLPLQZ6984-37-39 08:18:003.9[facility] VhbogipDQZWMFVHTR3072-90-34 08:18:000.2[facility] OltgviyWRMFQTQAID4028-33-61 08:18:000.[facility] IljcdrdDEFQEVZRVM3577-54-05 08:18:000.9[facility] SOWYONMDHH4455-15-84 08:18:000.7[facility] NmqwapqIGVQLNSIGH8618-79-27 08:18:00 69.1[facility] IrraizlULBZJGSNDY6390-85-98 08:18:0010.[facility] HermannHEMATOLOGY 2018-03-25 08:18:002.7[facility] YiimhurSOMWWZRKAY3679-13-12 08:18:0016.9[facility] EcmnodcIBDJNDTHDA5084-62-86 08:18:005.6[facility] NwtzbepLBULRBVTGX9193-76-42 08:18:008.1[facility] OolmiynLISQXWXQCT3149-98-07 08:18:002.68[facility] HIHYWWNKGC6339-34-93 08:18:0085.7[facility] IuyqnssQQFGQQHWMB9672-57-37 08:18:00 Test Item Value Reference Range Interpretation Comments MCH (test code = MCH) 30.1 pg 27.0-31.0 [facility] SsikicyUBDSEEGFWW2443-66-99 08:18:0035.2[facility] HermannHEMATOLOGY 2018-03-25 08:18:0023.0[facility] PqxaxonCMRGSNZOJM3180-34-21 08:18:0013.3[facility] VxwohuwPKGAOTJALC1653-09-46 08:18:02461Xwwnaiqp ImeklhpNDPIGYIUQE5326-63-78 08:18:009.0[facility] HermannPARATHYROID WWQZAPD7639-63-63 08:18:001.07[facility] HermannPARATHYROID SOAMMBS2563-09-63 08:18:001.14[facility] HermannCHEM PANEL 2018-03-24 10:28:001.7[facility] HermannPARATHYROID LVCNHYG3886-62-65 10:28:001.06 [facility]annPARATHYROID WEGYPKM6052-95-18 10:28:001.09[facility] HermannCHEM LVPDQ6109-05-19 10:28:001.7[facility] HermannPARATHYROID HZVYICB2323-13-01 10:28:001.06[facility] HermannPARATHYROID NPCMWFC9505-35-75 10:28:001.09[facility]annCHEM PXFWU3925-50-72 10:28:001.7[facility]PAR[facility]YROID PROFILE 2018-03-24 10:28:001.06[facility]PAR[facility]ROID FYGFPOB3270-68-27 10:28:00 1.09[facility] UqzenjjCPTXOLYGNVRYF6028-83-80 19:11:000.118[facility] OUCYFRITQWFYH1523-25-02 19:11:000.118[facility] YrowdtyCUQXMPPFPCJBH8720-32-33 19:11:000.118[facility]PARATHYROID LRVMPYZ6203-11-33 08:06:001.09[facility]PAR[facility]ROID AJFZJJU3949-61-20 08:06:001.04[facility]PAR[facility]YROID JSTRTLG7999-22-74 08:06:001.09[facility]PAR[facility]YROID JJKBAWL1490-80-60 08:06:001.04[facility]PAR[facility]YROID JJBQWCW6210-85-41 08:06:001.09[facility]PARATHYROID WGIPJAK0752-41-48 08:06:001.04[facility]annBACTERIAL - OGGLRAHT8706-86-01 10:41:00Negative (03/22/18 5:41 AM)[facility]annCHEM PANEL 2018-03-22 10:41:00 Test Item Value Reference Range Interpretation Comments B/C Ratio (test code = B/C Ratio) 7 1 6-25 [facility]annCHE[facility] ISPQV5562-16-51 10:41:003.8[facility]annCHEM PANEL 2018-03-22 10:41:00 Test Item Value Reference Range Interpretation Comments A/G Ratio (test code = A/G Ratio) 0.8 1 0.7-1.6 [facility]2018-09-27 10:41:0011[facility] PANEL 2018-03-22 10:41:000.2[facility] KYJLX3374-09-15 10:41:0069[facility] XYRFG0935-30-59 10:41:007.0[facility] PYPZT8874-29-06 10:41:0021[facility] IWTWX3919-65-82 10:41:003.2[facility] QBQMHBZEMKGGN2521-95-66 10:41:00 Test Item Value Reference Range Interpretation Comments Aldos/Renin Ratio 4.0 1 See_Comment [Automate d message] The (test code = system which ge nerated this Aldos/Renin Ratio) result tr ansmitted reference range : <=30.0. The reference r ayse was not used to interpr et this result as vaughn l/abnormal. [facility]VBQNLAGYMZHBQ0746-23-01 10:41:001.095[facility]2018-09-27 10:41:004.4[facility] CenterXsexhnxVKXRWMNQXV2311-25-90 10:41:00 Test Item Value Reference Range Interpretation Comments PTT (test code = PTT) 30.8 s 22.9-35.8 [facility] CenterVojukpuQNDNLCYEZN2769-13-57 10:41:00 Test Item Value Reference Range Interpretation Comments INR (test code = INR) 1.16 1 0.85-1.17 [facility] CenterMicuxfiTADNVLZYZT1829-87-81 10:41:00 Test Item Value Reference Range Interpretation Comments PT (test code = PT) 14.8 s 12.0-14.7 [facility] CenterXiudocpSPTCGMOKLH0211-90-48 10:41:000.1[facility]EkyndxoHORQKA8044-42-76 10:41:00 Test Item Value Reference Range Interpretation Comments CHD Risk (test code = CHD Risk) 6.04 1 4.00-7.30 [facility]SlrbyeeKYHLGX5762-16-50 10:41:0057[facility] HoqvqgrSGLJXE6094-99-36 10:41:0024[facility] QyhxclaZEYMVW7843-98-09 10:41:39899Qfjaqhts HermannLIPIDS 2018-03-22 10:41:70795Mlkxrdhm TmhpaxuJJQPNK6735-34-61 10:41:00 Test Item Value Reference Range Interpretation Comments VLDL (test code = VLDL) 64 1 [facility]annSPECIAL SGNZEUCME4076-45-14 10:41:005.2[facility]annURINE HAWW7184-38-08 10:41:0085[facility]annURINE RWMZ7036-84-01 10:41:0055[facility]annURINE LOUA0719-42-20 10:41:000.2[facility]annURINE ESHV7868-01-29 10:41:0072.8[facility]annBACTERIAL - QEOGSPHT3672-18-67 10:41:00Negative (03/22/18 5:41 AM)[facility]annCHEM TVWLP2670-00-55 10:41:00 Test Item Value Reference Range Interpretation Comments B/C Ratio (test code = B/C Ratio) 7 1 6-25 [facility]annCHEM RJTVK3888-02-73 10:41:003.8[facility]annCHEM PANEL 2018-03-22 10:41:00 Test Item Value Reference Range Interpretation Comments A/G Ratio (test code = A/G Ratio) 0.8 1 0.7-1.6 [facility]annCHEM JILKT2739-64-94 10:41:0011[facility]annCHEM PANEL 2018-03-22 10:41:000.2[facility]annCHEM EMCOL5117-01-84 10:41:0069[facility]annCHEM UTTPT4120-69-60 10:41:007.0[facility]annCHEM QCNZE5382-60-93 10:41:0021[facility]annCHEM CQZBD0321-69-71 10:41:003.2[facility] PNBALUPDDZQXL1192-82-91 10:41:00 Test Item Value Reference Range Interpretation Comments Aldos/Renin Ratio 4.0 1 See_Comment [Automate d message] The (test code = system which ge nerated this Aldos/Renin Ratio) result tr ansmitted reference range : <=30.0. The reference r ayse was not used to interpr et this result as vaughn l/abnormal. [facility] HospitalPkmbyoeHELYVXPFXWVLF0524-11-21 10:41:001.095[facility] MZNXAURJKLOOG4368-69-39 10:41:004.4[facility] ZwjjadtTMYCBKTIMS3265-80-65 10:41:00 Test Item Value Reference Range Interpretation Comments PTT (test code = PTT) 30.8 s 22.9-35.8 [facility] TswnczwWQRFQECDQM1469-84-80 10:41:00 Test Item Value Reference Range Interpretation Comments INR (test code = INR) 1.16 1 0.85-1.17 [facility] HospitalOifbeesPKRWKHFUZE3895-37-77 10:41:00 Test Item Value Reference Range Interpretation Comments PT (test code = PT) 14.8 s 12.0-14.7 [facility] HospitalVkvxdqyEUWNJGUOXG4625-84-34 10:41:000.1[facility] DjsrvikZGCOLQ1565-49-08 10:41:00 Test Item Value Reference Range Interpretation Comments CHD Risk (test code = CHD Risk) 6.04 1 4.00-7.30 [facility] TamcctdGWUVNB2299-47-56 10:41:0057[facility] AsuzflvMUGMHZ6406-18-65 10:41:0024[facility] AlmyfgzEDHZRX7767-87-31 10:41:91226Yrtdxkeh HermannLIPIDS 2018-03-22 10:41:52326Ehqgnimf UdgefnoZBDDIQ3367-76-14 10:41:00 Test Item Value Reference Range Interpretation Comments VLDL (test code = VLDL) 64 1 [facility]annSPECIAL LJHENOACT2624-94-90 10:41:005.2[facility]annURINE IGSP3641-60-01 10:41:0085[facility] HermannURINE LVYY7047-91-39 10:41:0055[facility]annURINE TDGX0299-23-19 10:41:000.2[facility]annURINE WXGF8735-90-39 10:41:0072.8[facility] HermannBACTERIAL - QFBXCJFO8068-82-70 10:41:00Negative (03/22/18 5:41 AM)[facility]2018-09-27 10:41:00 Test Item Value Reference Range Interpretation Comments B/C Ratio (test code = B/C Ratio) 7 1 6-25 [facility]2018-09-27 10:41:003.8[facility] PANEL 2018-03-22 10:41:00 Test Item Value Reference Range Interpretation Comments A/G Ratio (test code = A/G Ratio) 0.8 1 0.7-1.6 [facility]2018-09-27 10:41:0011[facility] PANEL 2018-03-22 10:41:000.2[facility] IXTAS8954-76-28 10:41:0069[facility]2018-09-27 10:41:007.0[facility]2018-09-27 10:41:0021[facility]2018-09-27 10:41:003.2[facility] DKVVGXHGHTBHI8974-09-56 10:41:00 Test Item Value Reference Range Interpretation Comments Aldos/Renin Ratio 4.0 1 See_Comment [Automate d message] The (test code = system which ge nerated this Aldos/Renin Ratio) result tr ansmitted reference range : <=30.0. The reference r yase was not used to interpr et this result as vaughn l/abnormal. [facility]lineFkuptvfPSOXEDUQSPEZP2420-19-32 10:41:001.095[facility] NPQQHLQDMAHFB4228-24-65 10:41:004.4[facility] ShorelineEdmznqyTTIKEJSMOE7661-34-07 10:41:00 Test Item Value Reference Range Interpretation Comments PTT (test code = PTT) 30.8 s 22.9-35.8 [facility] CenterKenbymaMZGWHNCMRR8706-69-25 10:41:00 Test Item Value Reference Range Interpretation Comments INR (test code = INR) 1.16 1 0.85-1.17 [facility]GoscoiuYGDHTQQDVF2334-41-72 10:41:00 Test Item Value Reference Range Interpretation Comments PT (test code = PT) 14.8 s 12.0-14.7 [facility] ZlffrqhKNRGZRPHEA0997-33-70 10:41:000.1[facility] InqfwltVLABMM5684-29-90 10:41:00 Test Item Value Reference Range Interpretation Comments CHD Risk (test code = CHD Risk) 6.04 1 4.00-7.30 [facility] BostarmZHDEBZ2542-32-81 10:41:0057[facility] LopnbnnQMDSJW8340-37-02 10:41:0024[facility] PnpjiepQHSDKD4381-12-64 10:41:11138Xqcyjyic HermannLIPIDS 2018-03-22 10:41:12615Vwbfzqhz KvffedxFQWNIK2781-83-05 10:41:00 Test Item Value Reference Range Interpretation Comments VLDL (test code = VLDL) 64 1 [facility]annSPECIAL BBYDYTVHM0486-61-83 10:41:005.2[facility]annURINE [id number] 10:41:0085[facility] AWZH7460-07-11 10:41:0055[facility] WMGX1677-19-03 10:41:000.2[facility] JABT8951-37-00 10:41:0072.8[facility] HermannCHEM THZFO6932-90-71 07:20:28969Styfnpni Pineda MFKEJAYOWP1433-23-26 07:20:00Negative *NA*(03/22/18 2:20 AM)[facility] AYUQ3307-49-06 07:20:0050.80[facility] TBFW5452-40-48 07:20:98895.5 [facility] JBFB6215-08-99 07:20:00 Test Item Value Reference Range Interpretation Comments U Prot/Creat (test code = U 3.08 1 Prot/Creat) [facility] [id number] 07:20:0050.80[facility] CHEM 2018-03-22 07:20:0079[facility] [id number] 07:20:0010.1[facility] UTFU8301-40-15 07:20:29198Mxugjffp HermannCHEM NUINR0409-86-59 07:20:43309Smjqsdlu WjwdgxtZUNJOFZCMC0598-20-89 07:20:00Negative *NA*(03/22/18 2:20 AM)[facility] [id number] 07:20:0050.80[facility] NGBE0907-86-24 07:20:39296.5[facility] EKYB1171-95-15 07:20:00 Test Item Value Reference Range Interpretation Comments U Prot/Creat (test code = U 3.08 1 Prot/Creat) [facility] [id number] 07:20:0050.80[facility] CHEM 2018-03-22 07:20:0079[facility] [id number] 07:20:0010.1[facility] DQVP1454-58-11 07:20:80514Werkkahp HermannCHEM XTDLL7626-72-71 07:20:29456Yhqimklh JdcegqrTXHURPWTAJ7577-15-90 07:20:00Negative *NA*(03/22/18 2:20 AM)[facility] OWMH7189-64-14 07:20:0050.80[facility] HEWI9756-90-58 07:20:82980.5[facility] NUNQ6819-79-98 07:20:00 Test Item Value Reference Range Interpretation Comments U Prot/Creat (test code = U 3.08 1 Prot/Creat) [facility] [id number] 07:20:0050.80[facility] CHEM 2018-03-22 07:20:0079[facility] UZEE2355-30-53 07:20:0010.1[facility] QWVV6554-47-96 07:20:88232Azthrcge HermannURINE AND NQAPB1977-56-05 05:21:54Yellow *NA*(03/22/18 12:21 AM)[facility] AND [id number] 05:21:54Clear (03/22/18 12:21 AM)[facility] AND [id number] 05:21:54 Test Item Value Reference Range Interpretation Comments UA Spec Grav (test code = UA Spec 1.025 1 Grav) [facility] [id number] 05:21:54Negative (03/22/18 12:21 AM) [facility] [id number] 05:21:54Negative *NA*(03/22/18 12:21 AM)[facility] AND [id number] 05:21:54Negative *NA*(03/22/18 12:21 AM)[facility] AND BPVVQ3964-53-32 05:21:540.2[facility] AND GHOFP3681-31-57 05:21:54Negative (03/22/18 12:21 AM)[facility] AND [id number] 05:21:54Negative (03/22/18 12:21 AM)[facility] AND SAUGC8828-05-19 05:21:54Moderate *ABN*(03/22/18 12:21 AM)[facility] AND INAFT1048-15-46 05:21:54Performed (03/22/18 12:21 AM)[facility] AND QFMMG1461-28-03 05:21:54None Seen (03/22/18 12:21 AM)[facility] AND [id number] 05:21:54 Test Item Value Reference Range Interpretation Comments UA pH (test code = UA pH) 5.5 1 5.0-8.0 [facility] [id number] 05:21:54None Seen (03/22/18 12:21 AM) [facility] [id number] 05:21:54Yellow *NA*(03/22/18 12:21 AM) [facility] [id number] 05:21:54Clear (03/22/18 12:21 AM) [facility] [id number] 05:21:54 Test Item Value Reference Range Interpretation Comments UA Spec Grav (test code = UA Spec 1.025 1 Grav) [facility] [id number] 05:21:54Negative (03/22/18 12:21 AM) [facility] [id number] 05:21:54Negative *NA*(03/22/18 12:21 AM)[facility] AND [id number] 05:21:54Negative *NA*(03/22/18 12:21 AM)[facility] IWVQD0711-73-58 05:21:540.2[facility] AND NVGPU6621-35-13 05:21:54Negative (03/22/18 12:21 AM)[facility] [id number] 05:21:54Negative (03/22/18 12:21 AM)[facility] AND [id number] 05:21:54Moderate *ABN*(03/22/18 12:21 AM)[facility] AND [id number] 05:21:54Performed (03/22/18 12:21 AM)[facility] AND [id number] 05:21:54None Seen (03/22/18 12:21 AM)[facility] AND [id number] 05:21:54 Test Item Value Reference Range Interpretation Comments UA pH (test code = UA pH) 5.5 1 5.0-8.0 [facility] [id number] 05:21:54None Seen (03/22/18 12:21 AM) [facility] [id number] 05:21:54Yellow *NA*(03/22/18 12:21 AM) [facility] [id number] 05:21:54Clear (03/22/18 12:21 AM) [facility] [id number] 05:21:54 Test Item Value Reference Range Interpretation Comments UA Spec Grav (test code = UA Spec 1.025 1 Grav) [facility] [id number] 05:21:54Negative (03/22/18 12:21 AM) [facility] [id number] 05:21:54Negative *NA*(03/22/18 12:21 AM)[facility] AND [id number] 05:21:54Negative *NA*(03/22/18 12:21 AM)[facility] AND [id number] 05:21:540.2[facility] AND [id number] 05:21:54Negative (03/22/18 12:21 AM)[facility] AND [id number] 05:21:54Negative (03/22/18 12:21 AM)[facility] AND [id number] 05:21:54Moderate *ABN*(03/22/18 12:21 AM)[facility] AND [id number] 05:21:54Performed (03/22/18 12:21 AM)[facility] [id number] 05:21:54None Seen (03/22/18 12:21 AM)[facility] AND [id number] 05:21:54 Test Item Value Reference Range Interpretation Comments UA pH (test code = UA pH) 5.5 1 5.0-8.0 [facility] [id number] 05:21:54None Seen (03/22/18 12:21 AM) [facility]annCARDIAC [id number] 03:42:0010.1[facility] HermannCARDIAC [id number] 03:42:00 Test Item Value Reference Range Interpretation Comments CK MB Index (test 1.9 1 See_Comment [Automate d message] The code = CK MB Index) system w Modality generated this result transmit manuel reference range : <=2.5. The reference range was not used to interpr et this result as vaughn l/abnormal. [facility]annCARDIAC [id number] 03:42:56928Tdydptrm HermannCHEM PANEL 2018-03-22 03:42:001.1[facility]annCARDIAC [id number] 03:42:0010.1 [facility]annCARDIAC [id number] 03:42:00 Test Item Value Reference Range Interpretation Comments CK MB Index (test 1.9 1 See_Comment [Automate d message] The code = CK MB Index) system w Modality generated this result transmit manuel reference range : <=2.5. The reference range was not used to interpr et this result as vaughn l/abnormal. [facility] whodoyouannCARDIAC [id number] 03:42:58489Cqznviik SPARQCode PANEL 2018-03-22 03:42:001.1[facility] AzleannCARDIAC DFDBBNY1335-23-60 03:42:0010.1 [facility] whodoyouannCARDIAC [id number] 03:42:00 Test Item Value Reference Range Interpretation Comments CK MB Index (test 1.9 1 See_Comment [Automate d message] The code = CK MB Index) system w [facility] generated this result transmit manuel reference range : <=2.5. The reference range was not used to interpr et this result as vaughn l/abnormal. [facility] whodoyouannCARDIAC [id number] 03:42:93747HjliyuwzAHS Pharm[employer] PANEL 2018-03-22 03:42:001.1[facility]
[2021-10-11] MEDS ORDERED: FENTANYL CITR 100 MCG/2 ML ONE ×3 (17:55→19:18)
[2021-10-11] MEDS ORDERED: HYDROCODONE/APAP 10/325 TAB ONE (18:04)
[2021-10-11 18:20] LABS: Absolute Lymphocytes (CBC) 0.9 K/uL (0.7-4.9); Hematocrit 30.7 % (39.6-49.0); Lymphocytes % 23.5 % (15.3-44.8); MPV 7.8 fL (7.6-11.3); RBC Red Blood Cell Count 3.29 M/uL (4.33-5.43)
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
[2021-10-11 18:36] LABS: Potassium 3.7 mmol/L (3.5-5.1)
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
[2021-10-11] MEDS ORDERED: LIDOCAINE 4% PATCH ONE (19:18)
--- NOTE | 2021-10-11 19:22 | RAD REPORT ---
EXAM DESCRIPTION: RAD - Humerus Left - 10/11/2021 7:10 pm CLINICAL HISTORY: Pain COMPARISON: No comparisons FINDINGS: No acute fracture or dislocation seen.
--- NOTE | 2021-10-11 19:23 | RAD REPORT ---
EXAM DESCRIPTION: RAD - Forearm Left - 10/11/2021 7:10 pm CLINICAL HISTORY: Pain COMPARISON: No comparisons FINDINGS: Vascular calcification is seen. No acute fracture or dislocation evident.
[2021-10-12 00:51] VITALS: TEMP 97.9; O2SAT 100
[2021-10-12 00:52] VITALS: BP 154/81
== END 2021-10-11 19:34 | disposition home or self-care (01) ==
LOC: ER 16:32
DX: R07.9 Chest pain, unspecified (principal); M54.2 Cervicalgia; M54.9 Dorsalgia, unspecified; M79.602 Pain in left arm; V49.59XA Passenger injured in collision with other motor vehicles in traffic accident, initial encounter; E11.22 Type 2 diabetes mellitus with diabetic chronic kidney disease; I12.0 Hypertensive chronic kidney disease with stage 5 chronic kidney disease or end stage renal disease; N18.5 Chronic kidney disease, stage 5; Z99.2 Dependence on renal dialysis; Z88.5 Allergy status to narcotic agent
CPT/HCPCS: 85025; 80048; 36415; 70450; 71250; 72125; 73090; 73060; 96374; 99284; J3010 ×2